=== PATIENT | female | born 1970 | race Caucasian/White ===

== ENCOUNTER 2024-08-11 13:40 | Outpatient (AMB) | payer MEDICARE, MEDICAID, SELFPAY ==
--- NOTE | 2024-08-11 13:44 | A.OFFVIS_ITS ---
VS Expanded 08/11/24 13:45 08/11/24 14:35 Height 4 ft 11 in 4 ft 11 in Weight 110 lb 3.698 oz 110 lb BMI 22.3 22.2 Intake Visit Reasons: Eating Habits Allergies Opioids - Morphine Analogues [OPIOIDS - MORPHINE ANALOGUES] Allergy (Severe, Unverified 06/22/20 16:23) NAUSEA, HIVES, STOPS BREATHING Nutrition Presentation Details: Pt presents for MNT for better eating habits Pt presents with her mom during this appointment. Mom reports Pt has lost about 60 lbs in 2 yrs since teeth were removed. Pt reports having lack of appetite and dealing with IBS and diverticulitis Pt reports she is concerned about gaining weight Pt lives with boyfriend , boyfriend cooks most of the meals Recently switched to lactaid milk and tolerates it well, has lactose intolerance 11 am milk (lactose free) and pills 12: milk lactose free and pills dinner: sloppy balaji on burger roll, water or milk other days Setswana meals (made by boyfriend: rice/beef/vegetables Pt reports smoking weed - several times/day no etoh BS Monitoring Most Recent Diabetes Results: No Data to Display ALM-Dryqsxz-Jd.Jeor Equation Height: 4 ft 11 in Weight: 110 lb Resting Metabolic Rate: 1013.32 Calculated Activity Level: Sedentary Calories Needed to Maintain Weight: 1215.98 Diagnosis Nutrition problem #1: not ready diet/lifestyle As related to (etiology) #1: unwilling to learn/apply As evidenced by (sign/symptom) #1: other (as per Pt 's statements ) Assessment & Plan Assessment & Plan (1) Poor eating habits: Code(s): E63.9 - Nutritional deficiency, unspecified Category: Medical Plan: Encourage variety of foods in the diet , including combination of complex carbohydrates and lean protein foods est kcal needs [id number] jose j meal est fluid 1500 ml/d est prot: 50 g/d Patient Instructions: Try having potatoes (microwaved ok ) with beef, alternating between bread and potato Have cereal with milk in the morning to take your medications (try multrigrain cheerios mix with cocoa puffs) Coding Level of Care Code Nutr Indiv Intake (90315) Diagnoses Poor eating habits E63.9 Time Spent (min) 30
[2024-08-11 13:45] VITALS: BMI 22.3
[2024-08-11 14:35] VITALS: BMI 22.2
== END 2024-08-11 15:20 | disposition home or self-care (01) ==
LOC: HO.ENCR 13:40
PROVIDERS: PCP Internal Medicine Endocrinology, Diabetes & Metabolism; Visit Provider Dietitian, Registered
DX: E63.9 Nutritional deficiency, unspecified (principal)

== ENCOUNTER → 2024-08-11 13:40 | Outpatient (BNVA) | payer MEDICARE, MEDICAID, SELFPAY | PROVIDERS: PCP Internal Medicine Endocrinology, Diabetes & Metabolism; Visit Provider Dietitian, Registered | DX: E63.9 Nutritional deficiency, unspecified (principal); K58.9 Irritable bowel syndrome, unspecified; Z71.3 Dietary counseling and surveillance | CPT/HCPCS: 97802 ==

== ENCOUNTER 2025-01-26 10:54 | Inpatient (IN) | payer MEDICARE, MEDICAID, SELFPAY ==
[2025-01-26 11:00] VITALS: BMI 21.9
--- NOTE | 2025-01-26 11:09 | PC.NURSE ---
Assumed care of patient at approximately 1055. Patient arrived to ED via EMS. Patient reports self harming behavior, hair pulling, anxiety, depression. Patient arrived tearful. Patient reports not wanting to stay at the facility she is at anymore. Patient has suicidal thoughts due to feeling like she is running out of options . No plan or intent. A&Ox4.
[2025-01-26 11:25] LABS: Appearance Urine Cloudy; Color Urine Yellow; Glucose Urine UA Negative (Negative); Leukocyte Esterase Urine Moderate (2+) (Negative); Nitrite Urine Negative (Negative); PH 6.5 (5.0-9.0); Specific Gravity - Urine 1.015 (1.005-1.025); UMIC TRIGGER UACC YES; Urine Blood Negative (Negative); Urine Ketones Negative (Negative); Urine Protein Negative (Neg-Trace)
[2025-01-26 11:34] LABS: Amphetamine Screen Urine Not Detected (Not Detect); Bacteria Urine 1+ (None Seen); Barbiturates, Urine Not Detected (Not Detect); Benzodiazepines Screen Urine Not Detected (Not Detect); Buprenorphine Scr Not Detected (Not Detect); Cannabinoid Screen Urine POSITIVE (Not Detect); Cocaine Screen Urine Not Detected (Not Detect); Fentanyl, urine Not Detected (Not Detect); Hyaline Casts Urine 0-2 /LPF (0-2); Methadone Screen, Urine Not Detected (Not Detect); Opiate Screen Urine POSITIVE (Not Detect); Oxycodone Screen Urine Not Detected (Not Detect); Phencyclidine Screen Urine Not Detected (Not Detect); RBC Urine 0-2 /HPF (0-2); Squamous Epithelial Cell Urine >20 /HPF (0-2); UACC Culture Trigger YES
[2025-01-26 11:35] LABS: MANUAL DIFF FLAG NO
[2025-01-26 11:37] LABS: Basophils Percent Auto 0.3 % (0-2); Eosinophils Absolute Auto 0.1 X10*3/uL (0.0-0.4); Eosinophils Percent Auto 0.8 % (0-4); Hematocrit 35.6 % (37.0-47.0); Hemoglobin 12.2 g/dl (12.0-16.0); Imm Gran Abs Auto 0.04 X10*3/uL (0.00-0.03); Imm Gran Pct Auto 0.5 % (0.0-0.4); Lymphocytes Absolute Auto 1.5 X10*3/uL (1.2-4.9); Lymphocytes Percent Auto 20.2 % (20-40); Mean Corpuscular HGB Conc 34.3 g/dl (31.0-35.0); Mean Corpuscular Hemoglobin 34.3 pg (27.0-33.0); Mean Platelet Volume 10.7 fL (9.4-12.3); Monocytes Absolute Auto 0.5 X10*3/uL (0.1-1.2); Monocytes Percent Auto 7.1 % (2-11); Neutrophils Absolute Auto 5.3 x10*3/uL (2.0-8.3); Neutrophils Percent Auto 71.1 % (45-73); Platelet Count 139 X10*3/uL (160-400); Red Blood Count 3.56 X10*6/uL (4.20-5.50); Red Cell Distribution Width 12.6 % (11.0-16.0); White Blood Count 7.5 X10*3/uL (4.8-10.8)
[2025-01-26 11:53] LABS: Alanine Aminotransferase 45 U/L (0-31); Albumin Level 3.8 g/dL (3.5-5.0); Alkaline Phosphatase 93 U/L (39-117); Anion Gap 9 (12-20); Aspartate Amino Transferase 38 U/L (5-31); Bilirubin Total 0.3 mg/dL (0.0-1.0); Blood Urea Nitrogen 29 mg/dL (9-16); Calcium 9.7 mg/dL (8.4-10.2); Carbon Dioxide 29 mmol/L (22-29); Chloride 106 mmol/L (96-108); Creatinine Clr Calc Pharmacy 60.5; Estimated Glomerular Filt Rate > 60; Ethanol < 10 mg/dL; Glucose Random 102 mg/dL (60-115); Potassium 4.3 mmol/L (3.3-5.1); Sodium 140 mmol/L (135-145); Total Protein 6.3 g/dL (6.5-8.0)
--- NOTE | 2025-01-26 12:48 | PC.NURSE ---
Pt has ostomy that was placed on 01/14/25. Patient is reporting increased discomfort surrounding the ostomy, tender to the touch. MD Nunez aware. Plan to change ostomy later in the day when supplies are available
--- NOTE | 2025-01-26 12:50 | MHC.CARE ---
Pt meets the criteria for IPLOC. Section 12a in chart. Provider in agreement.
[2025-01-26 13:22] LABS: HCG Quantitative < 2 mIU/mL
--- NOTE | 2025-01-26 13:58 | ED_ITS ---
HPI - Psych General Chief Complaint: Psychiatric Symptoms Stated Complaint: SEC 12,DEPRESSED,SELF HARM/PULLS HAIR & HITS SELF Time Seen by Provider: 01/26/25 11:12 Source: patient, family and EMS Mode of arrival: EMS History of Present Illness ED Provider: Dr. Kristin Nunez HPI Narrative: Patient comes to the emergency room via ambulance. Patient presents to the ED accompanied by her mother. According to the patient's mother, the patient has been having self-harming behaviors, her pulling, punching herself, running into [place] on purpose. Seems that the patient has been having worsening anxiety and depression. According to the patient's mother, patient does have developmental delay. According to the patient's mother, on 01/14/2025, patient had a colostomy surgery done, temporary. According to the patient's mother patient had multiple episodes of prolapsed rectum. Patient states that she has been recovering okay from surgery but it feels a bit irritated, denies any blood in the stool. The patient's mother reports that when the patient was seen at [facility] for the surgery, she was already acting erratic. Patient was discharged to senior care facility/rehab and her behavior worsening. Patient admits that she feels emotionally unstable, admits to SI. Related Data Home Medications ?Medication ?Instructions ?Recorded ?Confirmed albuterol sulfate 90 mcg/actuation 2 puff inhalation Q4H PRN Wheezing 01/26/25 01/26/25 aerosol inhaler amlodipine 5 mg tablet 7.5 mg PO DAILY 01/26/25 01/26/25 buspirone 15 mg tablet 15 mg PO TID 01/26/25 01/26/25 dicyclomine 10 mg capsule 10 mg PO BIDWM 01/26/25 01/26/25 ferrous sulfate 325 mg (65 mg 325 mg PO DAILY 01/26/25 01/26/25 iron) tablet (FeroSul) omeprazole 40 mg capsule,delayed 40 mg PO BID 01/26/25 01/26/25 release risperidone 0.5 mg tablet 0.5 mg PO DAILY 01/26/25 01/26/25 sertraline 100 mg tablet 150 mg PO DAILY 01/26/25 01/26/25 trazodone 100 mg tablet 100 mg PO BEDTIME 01/26/25 01/26/25 trazodone 50 mg tablet 25 mg PO BEDTIME 01/26/25 01/26/25 Allergies Allergy/AdvReac Type Severity Reaction Status Date / Time Opioids - Morphine Analogues Allergy Severe NAUSEA, Unverified 01/26/25 11:05 [OPIOIDS - MORPHINE HIVES, ANALOGUES] STOPS BREATHING Review of Systems 2 Review of Systems: Appearance: Alert. Oriented 3 No acute distress. Eyes: Pupils equal, round and reactive to light. ENT: Pharynx normal. Neck: Normal inspection. Neck supple. No lymph nodes noted. No crepitus CVS: Normal heart rate and rhythm. Pulses normal. Normal S1 and S2 Respiratory: No respiratory distress. Breath sounds normal. No Wheezing. No rales Abdomen: Soft and nontender. No rigidity. No distention. Skin: Skin warm and dry. Normal skin color. Normal skin turgor. Extremities: No lower extremity edema. No Lacerations. No Rash Neuro: Oriented X 3. No motor deficit. No sensory deficit. Moving all extremities. No slurred speech. CN 2 through 12 grossly intact Psych: calm, cooperative, normal affect [facility] Social History Social History Smoked in Last 30 Days: No Use of substances other than those prescribed or required for medical reasons: No Advance Directives: Yes Advance Directives Information Provided: Yes Advance Directives on File: No Do you have a plan to hurt others: No Plan Physical Exam 2 Vital Signs: Vital Signs: Last Vital Signs Temp 97.8 F 01/27/25 06:32 Pulse 89 01/27/25 06:32 Resp 17 01/27/25 06:32 BP 141/79 H 01/27/25 06:32 Pulse Ox 98 01/27/25 06:32 O2 Del Method Room Air 01/27/25 06:32 BMI result Body Mass Index 21.9 Const: Other: Appearance: Alert. Oriented X3. No acute distress. Eyes: Pupils equal, round and reactive to light. ENT: Pharynx normal. Neck: Normal inspection. Neck supple. No lymph nodes noted. No crepitus CVS: Normal heart rate and rhythm. Pulses normal. Normal S1 and S2 Respiratory: No respiratory distress. Breath sounds normal. No Wheezing. No rales Abdomen: Soft and nontender. No rigidity. No distention. The colostomy bag is in place, skin looks healthy, no signs of infection. Skin: Skin warm and dry. Normal skin color. Normal skin turgor. Extremities: No lower extremity edema. No Lacerations. No Rash Neuro: Oriented X 3. No motor deficit. No sensory deficit. Moving all extremities. No slurred speech. CN 2 through 12 grossly intact Psych: calm, cooperative, seems anxious Course Course Course Narrative: All of patient's labs pending. Colostomy bag surgical site is clean I was informed by the care team that the patient does not know how to take care of her colostomy bag. According to the patient's mother, when patient was discharged from the hospital in [facility], they tried taking the patient, but patient has no intention of learning how to take care of her own colostomy bag. Reevaluation(s) Reevaluation #1: Time: 13:14 Date: 01/27/25 Provider: Markie Gallo MD Physician observation ended at 12:50. Patient to be admitted as inpatient to psychiatry. No acute events prior to admission. Time: 13:15 Medications Administered Generic Name Dose Route Start Last Admin Trade Name Freq PRN Reason Stop Dose Admin Amlodipine Besylate 7.5 mg 01/27/25 09:00 01/27/25 08:51 Amlodipine Besylate 2.5 Mg Tablet PO 7.5 mg DAILY JOSE MARIA Administration Protocol Buspirone HCl 15 mg 01/26/25 21:00 01/27/25 08:39 Buspirone Hcl 5 Mg Tablet PO 15 mg TID JOSE MARIA Administration Dicyclomine HCl 10 mg 01/26/25 19:15 01/27/25 08:40 Dicyclomine Hcl 10 Mg Capsule PO 10 mg BIDWM JOSE MARIA Administration Ferrous Sulfate 324 mg 01/27/25 09:00 01/27/25 08:40 Ferrous Sulfate 324 Mg Tablet. PO 324 mg DAILY JOSE MARIA Administration Omeprazole 40 mg 01/27/25 06:30 01/27/25 08:40 Omeprazole 40 Mg Capsule. PO 40 mg BID@0630,1630 JOSE MARIA Administration Risperidone 0.5 mg 01/27/25 09:00 01/27/25 08:40 Risperidone 0.5 Mg Tablet PO 0.5 mg DAILY JOSE MARIA Administration Sertraline HCl 150 mg 01/26/25 18:45 01/27/25 08:40 Sertraline Hcl 50 Mg Tablet PO 150 mg DAILY JOSE MARIA Administration Trazodone HCl 25 mg 01/26/25 21:00 01/26/25 19:35 Trazodone Hcl 25 Mg Halftab PO 25 mg BEDTIME JOSE MARIA Administration Trazodone HCl 100 mg 01/26/25 21:00 01/26/25 19:35 Trazodone Hcl 100 Mg Tablet PO 100 mg BEDTIME JOSE MARIA Administration Discontinued Medications Generic Name Dose Route Start Last Admin Trade Name Jody PRN Reason Stop Dose Admin Lorazepam 1 mg 01/26/25 16:05 01/26/25 16:08 Lorazepam 1 Mg Tablet PO 01/26/25 16:06 1 mg ONCE ONE Administration Lorazepam 2 mg 01/26/25 18:06 01/26/25 18:10 Lorazepam 1 Mg Tablet PO 01/26/25 18:07 2 mg ONCE ONE Administration Lorazepam 2 mg 01/27/25 10:45 01/27/25 11:10 Lorazepam 1 Mg Tablet PO 01/27/25 10:46 2 mg ONCE ONE Administration Medical Decision Making Medical Decision Making [facility] Narrative: My interpretation of labs: No significant abnormality in patient's hematology or chemistry. LFTs are slightly bumped, hCG negative Patient is on a Section 12 Care team was consulted, patient will need inpatient level of care. Given patient's multiple conditions, care team recommends to keep the patient here in this hospital rather than doing a bed search with other hospitalist. Patient will likely need to go to the geriatric psychiatric unit since patient needs specialized care for her ostomy bag. Patient 's mother agrees with plan. Differential Diagnosis Differential Diagnoses: The differential diagnosis associated with the presentation includes Admission/Observation Consideration of admission/observation: Escalation of care including admission/observation considered (Patient will likely need inpatient level of care.) Lab Data [facility] Lab Attestation statement: I reviewed the patient's lab results. 01/26/25 11:29 01/26/25 11:29 Labs: Lab Results 01/26/25 01/26/25 Range/Units 11:15 11:29 WBC 7.5 (4.8-10.8) X10*3/uL RBC 3.56 L (4.20-5.50) X10*6/uL Hgb 12.2 (12.0-16.0) g/dl Hct 35.6 L (37.0-47.0) % MCV 100.0 H (80.0-98.0) fL MCH 34.3 H (27.0-33.0) pg MCHC 34.3 (31.0-35.0) g/dl RDW 12.6 (11.0-16.0) % Plt Count 139 L (160-400) X10*3/uL MPV 10.7 (9.4-12.3) fL Immature Gran % (Auto) 0.5 H (0.0-0.4) % Neut % (Auto) 71.1 (45-73) % Lymph % (Auto) 20.2 (20-40) % [place] % (Auto) 7.1 (2-11) % Eos % (Auto) 0.8 (0-4) % Baso % (Auto) 0.3 (0-2) % Lymph # (Auto) 1.5 (1.2-4.9) X10*3/uL [place] # (Auto) 0.5 (0.1-1.2) X10*3/uL Eos # (Auto) 0.1 (0.0-0.4) X10*3/uL Baso # (Auto) 0.0 (0.0-0.2) X10*3/uL Abs Immat Gran (auto) 0.04 H (0.00-0.03) X10*3/uL Absolute Neuts (auto) 5.3 (2.0-8.3) x10*3/uL Absolute Nucleated RBC 0.000 (0.0-0.012) X10*3/uL Nucleated RBC % (auto) 0.0 (0.0-0.2) /100WBC Sodium 140 (135-145) mmol/L Potassium 4.3 (3.3-5.1) mmol/L Chloride 106 (96-108) mmol/L Carbon Dioxide 29 (22-29) mmol/L Anion Gap 9 L (12-20) BUN 29 H (9-16) mg/dL Creatinine 0.85 (0.5-1.4) mg/dL Estim Creat Clear Calc 60.5 Estimated GFR > 60 Random Glucose 102 (60-115) mg/dL Calcium 9.7 (8.4-10.2) mg/dL Total Bilirubin 0.3 (0.0-1.0) mg/dL AST 38 H (5-31) U/L ALT 45 H (0-31) U/L Alkaline Phosphatase 93 (39-117) U/L Total Protein 6.3 L (6.5-8.0) g/dL Albumin 3.8 (3.5-5.0) g/dL Beta HCG, Quant < 2 mIU/mL Urine Color Yellow Urine Appearance Cloudy Urine pH 6.5 (5.0-9.0) Ur Specific [place] 1.015 (1.005-1.025) Urine Protein Negative (Neg-Trace) mg/dL Urine Glucose (UA) Negative (Negative) mg/dL Urine Ketones Negative (Negative) mg/dL Urine Blood Negative (Negative) Urine Nitrite Negative (Negative) Ur Leukocyte Esterase Moderate (2+) H (Negative) Urine RBC 0-2 (0-2) /HPF Urine WBC 11-20 H (0-5) /HPF Ur Squamous Epith Cells >20 (0-2) /HPF Urine Bacteria 1+ (None Seen) Hyaline Casts 0-2 (0-2) /LPF Urine Opiates Screen POSITIVE H (Not Detect) Ur Buprenorphine Scrn Not Detected (Not Detect) ng/mL Ur Oxycodone Screen Not Detected (Not Detect) ng/mL Urine Methadone Screen Not Detected (Not Detect) ng/mL Urine Fentanyl Screen Not Detected (Not Detect) Ur Barbiturates Screen Not Detected (Not Detect) Ur Phencyclidine Scrn Not Detected (Not Detect) Ur Amphetamines Screen Not Detected (Not Detect) U Benzodiazepines Scrn Not Detected (Not Detect) Urine Cocaine Screen Not Detected (Not Detect) U Marijuana (THC) Screen POSITIVE H (Not Detect) Ethyl Alcohol < 10 mg/dL Critical Care Time Critical Care Time Critical Care Time: Yes Total Critical Care Time: 35 Attestation: I have personally provided critical care time. Time includes review of lab data, radiology results, discussion with consultants, and monitoring for potential decompensation. Intervention performed as documented. Discharge Plan Discharge Clinical Impression: Anxiety, Paranoid, Self-destructive behavior Patient Disposition: Admitted As Inpatient Interventions: [place]-Suicide Risk Severity Scale Last Done: 01/26/25 11:05 Admission Worksheet (ED) Last Done: 01/27/25 13:04 Discharge Date/Time: 01/27/25 13:04
--- OUTSIDE RECORDS SUMMARY | 2025-01-26 14:53 | XMS_ITS | Clinical Summary ---
Author Organization [address] Address [address] [place] [phone] Phone Care Team Providers Care Customer Assistance Associate Name Role Phone Marc Longo MD Primary Care Provider [phone] Allergies Active Allergy Reactions Criticality Noted Date Comments Aspirin 04/20/2007 Rash; NOT ALLERGIC PER PATIENT Azithromycin Swelling 09/18/2015 Carisoprodol 07/21/2007 Codeine 11/17/2007 Gi upset Diazepam 04/20/2007 Valium gi upset,vom Gabapentin 07/29/2014 nausea Horse Dander 04/20/2007 Horse Serum animal Morphine Sulfate 04/20/2007 gi upset,vom Opium Tincture 02/02/2018 Oxycodone-Acetaminophen 04/20/2007 gi upset [id number] 08/01/2017 Moviprep [[id number] [id number]-[id number]] Prednisone 02/29/2016 nausea Propoxyphene Other 12/10/2007 Cannot take d/t to depression meds Propoxyphene N-Acetaminophen 06/25/2010 Medications busPIRone (BUSPAR) 15 mg tablet Take 1 Tab by mouth 3 times daily. 11/15/19 21 Active dicyclomine (BENTYL) 10 mg capsule Twice a day with meals and at bed time 07/29/20 Active folic acid (FOLVITE) 1 mg tablet Take 1 Tablet by mouth daily. 07/29/20 24 Active risperiDONE (RisperDAL) 0.5 mg tablet Take 1 Tab by mouth at bedtime. 03/10/20 Active sertraline (ZOLOFT) 100 mg tablet Take 1.5 tablets (150 mg total) by mouth 1 (one) time each day. 04/06/20 Active traZODone (DESYREL) 100 mg tablet Take 125 mg by mouth at bedtime. 03/26/20 22 Active vitamin B complex (B COMPLEX-VITAMI N B12 ORAL) Take by mouth 1 (one) time each day. Active albuterol HFA (PROAIR HFA ; PROVENTIL HFA ; VENTOLIN HFA) 90 mcg/actuation inhaler Inhale 2 puffs by mouth every 4 (four) hours if needed (cough, wheezing, shortness of breath). 8.5 g 12/07/19 25 Active omeprazole (PriLOSEC) [address] capsule Take 1 capsule (40 mg total) by mouth 2 (two) times a day. Do not crush or chew. 90 capsule 1 12/07/19 25 Active ferrous sulfate 325 mg (65 mg elemental iron) tablet Take 1 tablet (325 mg total) by mouth 1 (one) time each day. 90 tablet 1 12/07/19 25 Active atorvastatin (LIPITOR) 10 mg tablet Take 1 tablet (10 mg total) by mouth at bedtime. 30 tablet 01/04/20 25 Active metoprolol succinate (TOPROL-XL) 25 mg 24 hr tablet Take 1 tablet (25 mg total) by mouth 1 (one) time each day. Do not crush or chew. 30 tablet 01/04/20 25 Active nicotine (NICODERM CQ) 14 mg/[address] 1 patch on the skin 1 (one) time each day at the same time for 14 doses. 01/20/20 25 02/02/ 025 Active polyethylene glycol (MIRALAX) 17 gram packet Take 17 g by mouth 1 (one) time each day for 10 days. 01/21/20 25 025 Active docusate sodium (COLACE) 100 mg capsule Take 2 capsules (200 mg total) by mouth 2 (two) times a day for 10 days. 0 01/20/20 25 Active amLODIPine (NORVASC) 5 mg tablet Take 1 tablet (5 mg total) by mouth 1 (one) time each day. 01/20/20 Active amLODIPine (NORVASC) 5 mg tablet Take 1.5 Tablets by mouth daily. 07/29/20 025 Discontinued(Re order) atorvastatin (LIPITOR) 10 mg tablet Take 1 Tablet by mouth at bedtime. 07/29/20 025 Discontinued(Re order) metoprolol succinate (TOPROL-XL) 25 mg 24 hr tablet Take 1 Tablet by mouth daily. 07/29/20 025 Discontinued(Re order) doxycycline hyclate (VIBRA-TABS) 100 mg tablet Take 1 tablet (100 mg total) by mouth 2 (two) times a day. 10/14/19 025 Discontinued(Ex pired) ibuprofen (ADVIL,MOTRIN) 600 mg tablet Take 1 tablet (600 mg total) by mouth 3 (three) times a day if needed (pain). 30 tablet 11/11/19 025 Discontinued(En tered in Error) amLODIPine (NORVASC) 5 mg tablet Take 1.5 tablets (7.5 mg total) by mouth 1 (one) time each day. 45 tablet 01/04/20 025 Discontinued HYDROmorphone (DILAUDID) 2 mg tabletIndicati ons:Self-injur ious behavior,Recta l prolapse,Throm bocytopenia ([facility] V24) Take 1 tablet (2 mg total) by mouth every 4 (four) hours if needed for severe pain for up to 3 days. Max Daily Amount: 12 mg 10 tablet 01/20/20 Active Problems Problem Noted Date Diagnosed Date Constipation, chronic 04/16/2024 Chronic low back pain 02/07/2022 CKD (chronic kidney disease) stage 3, GFR 30-59 ml/min (CMS/HCC V24, CMS/HCC V28) 11/15/2020 Marijuana abuse 11/14/2020 Thrombocytopenia ([facility]24) 10/25/2019 Insomnia 07/16/2017 Resolved Problems Problem Noted Date Diagnosed Date Resolved Date Diarrhea 01/14/2025 01/19/2025 Rectal prolapse 04/16/2024 01/19/2025 Encounters Date Type Department Care Team Description 01/23/2025 Lab Requisition [facility] [address] [place] [address] Courtney Roger MD Anemia, unspecified; Other disorders of electrolyte and fluid balance, not elsewhere classified 01/20/2025 Lab Requisition [facility] [address] [place] [address] Courtney Roger MD Anemia, unspecified; Other disorders of electrolyte and fluid balance, not elsewhere classified 01/19/2025 Telephone Adult Medicine [address] [phone] Marc Longo MD Advice Only 01/14/2025 1:20 PM EDT - 01/14/2025 3:50 PM EDT Surgery [address] [phone] Sebastian Sanabria MD LAPAROSCOPIC LOW ANTERIOR RESECTION W/ COLOSTOMY CREATION 01/14/2025 1:14 PM EDT Anesthesia Event [address] [phone] Jovi Hernandez DO Chang, Ling, CRNA 01/12/2025 6:48 AM EDT - 01/19/2025 4:39 PM EDT Hospital Encounter [facility] [address] [place] [phone] Jorge Singh MD Garvin, MD Rodger Sullivan Mark A, MD Cheng, Ting Ho Danny, DO Landry, Jonathan P, MD Flores, Carlos M, MD Santoyo-Pacheco, Omar D, MD Japaridze, Anna, MD Colitis (Primary Dx); Periorbital hematoma of left eye; Self-injurious behavior; Rectal prolapse; Diarrhea; Thrombocytopenia ([facility] V24) Discharge Disposition: [facility] Facility 12/14/2024 Telephone Adult Medicine [address] [phone] Amy Gamez, RN Faxed Order (Maria Alejandra Toure [facility] order# [id number]) 11/11/2024 10:00 AM EST - 11/11/2024 11:59 PM EST Hospital Encounter [address] [phone] Chronic bilateral low back pain with bilateral sciatica Discharge Disposition: Home or Self Care 11/11/2024 9:30 AM EST Office Visit Adult [address] [phone] Irma Pena PA Chronic bilateral low back pain with bilateral sciatica (Primary Dx); Paresthesias; Urinary frequency; Elevated glucose level; Screening for diabetes mellitus (DM); Acute bacterial conjunctivitis of left eye; Vitamin D deficiency 11/10/2024 Telephone Adult Medicine [address] [phone] Marc Longo MD Request For Order(s) (Maria Alejandra Toure order # [id number] received. Placed in provider's bin. Please sign, date and fax back to [phone].) 11/08/2024 Telephone Adult Medicine [address] [phone] Marc Longo MD Foot Swelling; Nasal Congestion; Cough 11/05/2024 Telephone Adult [address] [phone] Mariela Malik LPN Fitting for DME (Faxed form from [employer]) from Last 3 Months Immunizations Name Administration Dates Next Due Td Tetanus diptheria (Tdvax) 7yo and older 11/19 Tdap Tetanus diptheria acell ular pertussis (Boostrix; Adacel) 7yo and older 06/07/2008 Surgical History Surgery Date Site/Laterality Comments BACK SURGERY 1996 PROCEDURE: HISTORICAL BACK SURGERY; COMMENT: multiple back procedures ESOPHAGOGASTRODUODENOSCOPY 08/01/2008 PROCEDURE: ID EGD TRANSORAL BIOPSY SINGLE/MULTIPLE; COMMENT: duodenal bx: wnl COLONOSCOPY W/ BIOPSIES 08/01/2008 PROCEDURE: ID COLONOSCOPY W/BIOPSY SINGLE/MULTIPLE; COMMENT: colonic bx: wnl TUBAL LIGATION 2002 PROCEDURE: HISTORICAL TUBAL LIGATION ENDOMETRIAL ABLATION 05/25/2010 PROCEDURE: ID ENDOMETRIAL ABLTJ THERMAL W/O HYSTEROSCOPIC GUID; COMMENT: Novasure TONSILLECTOMY PROCEDURE: HISTORICAL TONSILLECTOMY MULTIPLE TOOTH EXTRACTIONS PROCEDURE: HISTORICAL DENTAL EXTRACTION CHOLECYSTECTOMY 05/16/2017 PROCEDURE: HISTORICAL CHOLECYSTECTOMY; COMMENT: Dr. 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 05/07/2007 DX:Degenerative joint diseas e (DJD) of lumbar spine Depression 04/20/2007 DX:Depression; C OMMENT: IP 04/2017 GERD (gastroesophageal reflu x disease) 10/08/2010 DX:GERD (gastroesophageal re flux disease) History of diverticulitis of colon 09/23/2017 DX:History of diverticulitis of colon Hyperlipidemia 09/23/2017 DX:Hyperlipidemi a Hypertension 04/20/2007 DX:Hypertension Insomnia 07/16/2017 DX:Insomnia Internal and external prolap sed hemorrhoids 02/04/2017 DX:Internal and external pro lapsed hemorrhoids Irritable bowel syndrome (IBS) 02/08/2015 D X:Irritable bowel syndrome (IBS) TREVOR (obstructive sleep apnea) 01/26/2013 DX :TREVOR (obstructive sleep apnea); COMMENT: CPAP PTSD (post-traumatic stress disorder) 07/16/2017 DX:PTSD (post-traumatic stress disorder) Rheumatic mitral stenosis 05/03/2016 DX:Rhe umatic mitral stenosis Tobacco abuse 01/06/2018 DX:Tobacco abuse Ventral hernia 12/30/2017 DX:Ventral herni a Family History Medical History Relation Name Comments Breast cancer Aunt maternal unilateral Other: Other Father pacemaker; tric uspid & mitral valve replacement Relation Name Status Comments Aunt maternal Alive Father Alive Maternal Grandfather Maternal Grandmother Mother Alive Paternal Grandfather Paternal Grandmother Sister x 2 Alive Social History Tobacco Use Types Packs/Day Years Used Date Smoking Tobacco: Every Day Cigarettes Smokeless Tobacco: Never Tobacco Cessation:Ready to Q uit: Not Asked; Counseling Given: Not Answered Alcohol Use Standard Drinks/Week Comments No 0 (1 standard drink = 0.6 oz pur e alcohol) Interpersonal Safety Answer Date Record ed Physical Abuse 01/14/2025 Verbal Abuse 01/14/2025 Comments No Sex and Gender Information Value Date Recorded Sex Assigned at Female 01/12/2025 8:36 AM EDT Legal Sex Female 1:54 AM EST Gender Identity Female 01/12/2025 8:36 AM EDT Sexual Orientation Straight 01/12/2025 8: 36 AM EDT Obstetrics History Last Filed Vital Signs Vital Sign Reading Time Taken Comments Blood Pressure 145/70 01/19/2025 2:30 PM EDT Pulse 87 01/19/2025 2:30 PM EDT Temperature 36.2 ??C (97.1 ??F) 01/19/2025 2:30 PM ED T Respiratory Rate 18 01/19/2025 2:30 PM EDT Oxygen Saturation 94% 01/19/2025 2:30 PM EDT Inhaled Oxygen Concentration - - Weight 53.2 kg (117 lb 3.2 oz) 01/14/2025 11:00 AM EDT Height 149.9 cm (4' 11 ) 01/14/2025 11:00 AM EDT Body Mass Index 23.67 01/14/2025 11:00 AM EDT Plan of Treatment Upcoming Encounters Date Type Department Care Team (Late st Contact Info) Description 02/17/2025 9:45 AM EDT Clinical Support General Surgery [facility] [address] [phone] 02/25/2025 8:45 AM EDT Office Visit [address] [phone] Sebastian Sanabria MD [address] [address] 06/21/2025 1:30 PM EDT Office Visit [facility] H[facility]ology Oncology [address] [place] [address] Heide Covarrubias MD [address] [place] [address] Health Maintenance Due Date Last Done Comments COVID-19 Vaccine (#1) 1976 Hepatitis A Vaccines (1 of 2 - Risk 2-dose series) 1990 Hepatitis B Vaccines (1 of 3 - 19+ 3-dose series) 1990 Pneumococcal Vaccine: 50+ Years (1 of 2 - PCV) 1990 Pneumococcal Vaccine: Pediatrics (0 to 5 Years) and At-Risk Patients (6 to 64 Years) (1 of 2 - PCV) 1990 Cervical Cancer Screening: Pap Smear 12/28/2018 12/29/2015, 12/29/2015 Zoster Vaccines (1 of 2) 2021 Depression Screening 09/14/2022 Medicare Annual Wellness Visit 09/14/2022 Social Influencers of Health Screening 09/14/2022 Influenza Vaccine (Season Ended) 2025 Breast Cancer Screening 12/22/2025 12/23/19 24, 09/04/2020, 08/30/2019, Additional history exists Hypertension/CHF/CAD Annual BMP Blood Test 01/24/2026 01/24/2025, 01/20/2025, 01/18/2025, Additional history exists Cholesterol Screening (Lipid Panel) 11/26/2028 11/26/2023 DTaP,Tdap,and Td Vaccines (3 - Td or Tdap) 11/19/2033 11/19/2023, 06/07/2008 Colorectal Cancer Screening: Colonoscopy 04/01/2034 04/01/2024 HIV Screening Completed 06/26/2009 Hepatitis C Screening Completed 01/14/2025 , 01/14/2025, 01/14/2025, Additional history exists HIB Vaccines Aged Out No longer eligi ble based on patient's age to complete this topic HPV Vaccines Aged Out No longer eligi ble based on patient's age to complete this topic IPV Vaccines Aged Out No longer eligi ble based on patient's age to complete this topic MMR Vaccines Aged Out No longer eligi ble based on patient's age to complete this topic Meningococcal ACWY Vaccine Aged Out N o longer eligible based on patient's age to complete this topic Meningococcal B Vaccine Aged Out No l onger eligible based on patient's age to complete this topic RSV Immunization Patients Under 20 months Aged Out No longer eligible based on patient's age to complete this topic Varicella Vaccines Aged Out No longer eligible based on patient's age to complete this topic Procedures Procedure Name Priority Date/Time Associated Diagnosis Comments COMPREHENSIVE METABOLIC PANEL Routine 01/24/2025 9:25 AM EDT Anemia, unspecified Other disorders of electrolyte and fluid balance, not elsewhere classified COMPLETE BLOOD COUNT Routine 01/24/2025 9:25 AM EDT Anemia, unspecified Other disorders of electrolyte and fluid balance, not elsewhere classified COMPREHENSIVE METABOLIC PANEL Routine 01/20/2025 6:13 AM EDT Anemia, unspecified Other disorders of electrolyte and fluid balance, not elsewhere classified COMPLETE BLOOD COUNT Routine 01/20/2025 6:13 AM EDT Anemia, unspecified Other disorders of electrolyte and fluid balance, not elsewhere classified ECG 12-LEAD Routine 01/18/2025 9:38 AM EDT MAGNESIUM Add-On 01/18/2025 6:48 AM EDT CBC WITH AUTO DIFFERENTIAL Routine 01/18/2025 6:48 AM EDT AMMONIA Routine 01/18/2025 6:48 AM EDT HEPATIC FUNCTION PANEL Routine 01/18/2025 6:48 AM EDT CBC AND DIFFERENTIAL Routine 01/18/2025 6:48 AM EDT BASIC METABOLIC PANEL Routine 01/18/2025 6:48 AM EDT HEPATITIS B VIRUS PCR QUANTITATIVE Routine 01/17/2025 8:35 AM EDT SST - GOLD Routine 01/17/2025 8:33 AM EDT EXTRA TUBES Routine 01/17/2025 8:33 AM EDT CBC WITH AUTO DIFFERENTIAL Routine 01/17/2025 6:12 AM EDT PHOSPHORUS Routine 01/17/2025 6:12 AM EDT MAGNESIUM Routine 01/17/2025 6:12 AM EDT BASIC METABOLIC PANEL Routine 01/17/2025 6:12 AM EDT CBC AND DIFFERENTIAL Routine 01/17/2025 6:12 AM EDT CBC WITH AUTO DIFFERENTIAL Routine 01/16/2025 6:37 AM EDT HEPATIC FUNCTION PANEL Routine 01/16/2025 6:37 AM EDT MAGNESIUM Routine 01/16/2025 6:37 AM EDT CBC AND DIFFERENTIAL Routine 01/16/2025 6:37 AM EDT BASIC METABOLIC PANEL Routine 01/16/2025 6:37 AM EDT PHILLIP URINE CULTURE TUBE Routine 01/16/2025 4:42 AM EDT URINALYSIS WITH REFLEX MICROSCOPIC AND CULTURE Routine 01/16/2025 4:42 AM EDT URINALYSIS WITH REFLEX MICROSCOPIC AND CULTURE Routine 01/16/2025 4:42 AM EDT ECG 12-LEAD STAT 01/15/2025 5:29 PM EDT US ABDOMEN LIMITED Routine 01/15/2025 7: 28 AM EDT CBC WITH AUTO DIFFERENTIAL Routine 01/15/2025 6:27 AM EDT PHOSPHORUS Routine 01/15/2025 6:27 AM EDT HEPATIC FUNCTION PANEL Routine 01/15/2025 6:27 AM EDT BASIC METABOLIC PANEL Routine 01/15/2025 6:27 AM EDT CBC AND DIFFERENTIAL Routine 01/15/2025 6:27 AM EDT MAGNESIUM Routine 01/15/2025 6:27 AM EDT OXYGEN THERAPY, ADULT Routine 01/14/2025 4:11 PM EDT TISSUE EXAM Routine 01/14/2025 3:33 PM EDT Rectal prolapse TH AN ENDOTRACHEAL(NO CHARGE) Routine 01/14/2025 1:38 PM EDT COLECTOMY LEFT LAPAROSCOPIC 01/14/2025 1:14 PM EDT Rectal prolapse MONONUCLEOSIS SCREEN Add-On 01/14/2025 1:00 PM EDT MAGEN IFA WITH TITER AND PATTERN Add-On 01/14/2025 1:00 PM EDT SMOOTH MUSCLE ANTIBODY IGG Routine 01/14/2025 12:58 PM EDT HERPES SIMPLEX VIRUS 1 AND 2 PCR, QUALITATIVE Routine 01/14/2025 12:58 PM EDT HEPATITIS C VIRUS QUANTITATIVE PCR STAT 01/14/2025 11:07 AM EDT HEPATITIS A ANTIBODY, TOTAL STAT 01/14/2025 11:07 AM EDT ACETAMINOPHEN LEVEL Timed 01/14/2025 1 1:07 AM EDT PROTHROMBIN TIME WITH INR Routine 01/14/2025 10:08 AM EDT HEPATITIS C ANTIBODY Add-On 01/14/2025 10:07 AM EDT HEPATITIS B SURFACE ANTIGEN WITH CONFIRMATION Add-On 01/14/2025 10:07 AM EDT HEPATITIS B SURFACE ANTIBODY Add-On 01/14/2025 10:07 AM EDT HEPATITIS B CORE ANTIBODY IGM Add-On 01/14/2025 10:07 AM EDT HEPATITIS A ANTIBODY IGM Add-On 01/14/2025 10:07 AM EDT LAVENDER - EDTA Routine 01/14/2025 10:07 AM EDT SST - GOLD Routine 01/14/2025 10:07 AM EDT EXTRA TUBES Routine 01/14/2025 10:07 AM EDT ECG 12-LEAD STAT 01/14/2025 9:13 AM EDT HEPATITIS PANEL, ACUTE WITH REFLEX TO CONFIRMATION Add-On 01/14/2025 8:38 AM EDT TYPE AND SCREEN STAT 01/14/2025 8:38 AM EDT CBC WITH AUTO DIFFERENTIAL STAT 01/14/2025 8:38 AM EDT C-REACTIVE PROTEIN STAT 01/14/2025 8: 38 AM EDT MAGNESIUM STAT 01/14/2025 8:38 AM EDT COMPREHENSIVE METABOLIC PANEL STAT 01/14/2025 8:38 AM EDT CBC AND DIFFERENTIAL STAT 01/14/2025 8:[address] HEAD WO CONTRAST STAT 01/14/2025 5 [address] MAXILLOFACIAL WO CONTRAST STAT 01/14/2025 5:51 AM EDT PHILLIP URINE CULTURE TUBE STAT 01/12/2025 12:08 PM EDT URINALYSIS WITH REFLEX MICROSCOPIC AND CULTURE STAT 01/12/2025 12:08 PM EDT URINALYSIS WITH REFLEX MICROSCOPIC AND CULTURE STAT 01/12/2025 12:08 PM EDT DRUG ABUSE SCREEN 8A PANEL, URINE STAT 01/12/2025 12:[address] ABDOMEN PELVIS W CONTRAST STAT 01/12/2025 10:15 AM EDT SALICYLATE LEVEL STAT Add-on 01/12/2025 6:44 AM EDT HCG, SERUM, QUALITATIVE STAT Add-on 01/12/2025 6:44 AM EDT ACETAMINOPHEN LEVEL STAT Add-on 01/12/2025 6 :44 AM EDT CBC WITH AUTO DIFFERENTIAL STAT 01/12/2025 6:44 AM EDT COMPREHENSIVE METABOLIC PANEL STAT 01/12/2025 6:44 AM EDT CBC AND DIFFERENTIAL STAT 01/12/2025 6:44 AM EDT URINALYSIS WITH REFLEX MICROSCOPIC Routine 11/11/2024 10:28 AM EST Urinary frequency URINALYSIS WITH REFLEX MICROSCOPIC Routine 11/11/2024 10:28 AM EST Urinary frequency CULTURE URINE Routine 11/11/2024 10:28 AM EST Urinary frequency MAGNESIUM Routine 11/11/2024 10:25 AM EST Chronic bilateral low back pain with bilateral sciatica VITAMIN D 25 HYDROXY Routine 11/11/2024 10:25 AM EST Chronic bilateral low back pain with bilateral sciatica Vitamin D deficiency COMPREHENSIVE METABOLIC PANEL Routine 11/11/2024 10:25 AM EST Chronic bilateral low back pain with bilateral sciatica VITAMIN B12 Routine 11/11/2024 10:25 AM EST Chronic bilateral low back pain with bilateral sciatica HEMOGLOBIN A1C Routine 11/11/2024 10:25 AM EST Chronic bilateral low back pain with bilateral sciatica Screening for diabetes mellitus (DM) Elevated glucose level XR LUMBAR SPINE 4+ VIEWS Routine 11/11/2024 10:09 AM EST Chronic bilateral low back pain with bilateral sciatica HM COLONOSCOPY Routine 04/01/2024 SCREENING MAMMOGRAPHY BI 2-VIEW BREAST INC CAD Routine 12/23/2023 1:58 PM EDT Encounter for screening mammogram for malignant neoplasm of breast LIPID PANEL Routine 11/26/2023 PAP SMEAR Routine 12/29/2015 HIV SCREENING Routine 06/26/2009 from Last 3 Months or Most Recently Relevant to Health Maintenance Results * (ABNORMAL) Complete blood count (01/24/2025 9:25 AM EDT) Only the most recent of2 resultswithin the time period is included. WBC 8.8 4.8 - 10.8 K/mcL LAB HEMETOLOGY METHOD 01/24/2025 12:[address] [facility] RBC 3.70(L) 3.80 - 4.80 M/mcL LAB HEMETOLOGY METHOD 01/24/2025 12:[address] [facility] Hemoglobin 12.4 11.5 - 16.0 g/dL LAB HEMETOLOGY METHOD 01/24/2025 12:[address] [facility] Hematocrit 37.7 35.0 - 47.0 % LAB HEMETOLOGY METHOD 01/24/2025 12:[address] [facility] MCV 102.7(H) 79.0 - 98.0 FL LAB HEMETOLOGY METHOD 01/24/2025 12:[address] [facility] MCH 33.8(H) 27.0 - 32.0 pcg LAB HEMETOLOGY METHOD 01/24/2025 12:[address] [facility] MCHC 32.9 32.0 - 37.0 g/dL LAB HEMETOLOGY METHOD 01/24/2025 12:[address] [facility] RDW 12.7 11.0 - 15.0 % LAB HEMETOLOGY METHOD [facility]/24[facility] Plate[facility] 142 130 - 400 K/mcL LAB HEMETOLOGY METHOD 01/24/2025 12:[address] [facility] MPV 11.8(H) 7.0 - 11.0 FL LAB HEMETOLOGY METHOD 01/24/2025 12:19 [facility] NRBC 0.0 <1.0 % LAB HEMETOLOGY METHOD 01/24/2025 12:19 PM [facility] NRBC Absolute 0.00 <0.10 K/mcL LAB HEMETOLOGY METHOD 01/24/2025 12:[address] [facility] Blood Venous blood specimen / Unknown Venipuncture / Unknown 01/24/2025 9:25 AM EDT 01/24/2025 11:22 AM EDT us Courtney Roger MD LAB BLOOD ORDERABLES Fin al Result [facility] [address] [place] [address], * (ABNORMAL) Comprehensive metabolic panel (01/24/2025 9:25 AM EDT) Only the most recent of5 resultswithin the time period is included. Sodium 140 133 - 145 mmol/L LAB CHEMISTRY METHOD 01/24/2025 1:37 PM [facility] Potassium 4.3 3.5 - 5.5 mmol/L LAB CHEMISTRY METHOD 01/24/2025 1:37 PM [facility] Chloride 104 96 - 110 mmol/L LAB CHEMISTRY METHOD 01/24/2025 1:37 PM [facility] CO2 28 21 - 32 mmol/L LAB CHEMISTRY METHOD 01/24/2025 1:37 PM [facility] Anion Gap 8 3 - 11 LAB CHEMISTRY METHOD 01/24/2025 1:37 PM [facility] Glucose 91 70 - 100 mg/dL LAB CHEMISTRY METHOD 01/24/2025 1:37 PM [facility] BUN 30(H) 5 - 25 mg/dL LAB CHEMISTRY METHOD 01/24/2025 1:37 PM [facility] Creatinine 0.94 0.50 - 1.10 mg/dL LAB CHEMISTRY METHOD 01/24/2025 1:37 PM [facility] eGFR 73 >=60 mL/min/1. 73m2 LAB CHEMISTRY METHOD 01/24/2025 1:37 PM [facility] Comment:Calculation based on the??Chronic Kidney Disease Epidemiology Collaboration (CKD-EPI) equation refit??without adjustment for race. BUN/Creatinine Ratio 31.9 LAB CHEMISTRY METHOD 01/24/2025 1:37 PM [facility] Calcium 9.7 8.5 - 10.5 mg/dL LAB CHEMISTRY METHOD 01/24/2025 1:37 PM [facility] AST (SGOT) 37 10 - 42 unit/L LAB CHEMISTRY METHOD 01/24/2025 1:[address] [facility] ALT (SGPT) 67(H) 10 - 60 unit/L LAB CHEMISTRY METHOD 01/24/2025 1:[address] [facility] Alkaline Phosphatase 108 42 - 121 unit/L LAB CHEMISTRY METHOD 01/24/2025 1:[address] [facility] Total Protein 6.6 6.0 - 8.0 g/dL LAB CHEMISTRY METHOD 01/24/2025 1:[address] [facility] Albumin 3.4 3.2 - 5.0 g/dL LAB CHEMISTRY METHOD 01/24/2025 1:[address] [facility] Total Bilirubin 0.3 0.0 - 1.4 mg/dL LAB CHEMISTRY METHOD 01/24/2025 1:[address] [facility] Blood Venous blood specimen / Unknown Venipuncture / Unknown 01/24/2025 9:25 AM EDT 01/24/2025 11:22 AM EDT us Courtney Roger MD LAB BLOOD ORDERABLES Fin al Result [facility] [address] [place] [address], * ECG 12 lead (01/18/2025 9:38 AM EDT) Only the most recent of3 resultswithin the time period is included. Ventricular Rate ECG 67 BPM GEMUSE Atrial Rate 67 BPM GEMUSE P-R Interval 176 ms GEMUSE QRS Duration 76 ms GEMUSE Q-T Interval 404 ms GEMUSE QTc 426 ms GEMUSE P Wave [place] 25 degrees GEMUSE R [place] 68 degrees GEMUSE T [place] 23 degrees GEMUSE ECG Interpretation Normal sinus rhythm Possible Left atrial enlargement When compared with ECG of 15-JAN-2025 17:29, QT has shortened Confirmed by NARA ENGEL ([id number]) on 01/19/2025 5:20:31 PM GEMUSE 01/18/2025 9:38 AM EDT 01/19/2025 5:20 PM EDT us Tiera Louise MD ECG ORDERABLES Final Result G[facility] * (ABNORMAL) CBC auto differential (01/18/2025 6:48 AM EDT) Only the most recent of6 resultswithin the time period is included. WBC 5.4 4.8 - 10.8 K/mcL LAB HEMETOLOGY METHOD 01/18[facility]2025 7:[facility] RBC 3.40(L) 3.80 - 4.80 M/mcL LAB HEMETOLOGY METHOD 01/18/2025 7:30 AM [facility] Hemoglobin 11.8 11.5 - 16.0 g/dL LAB HEMETOLOGY METHOD 01/18/2025 7:30 AM [facility] Hematocrit 34.4(L) 35.0 - 47.0 % LAB HEMETOLOGY METHOD 01/18/2025 7:30 AM [facility] [facility] MCV 102.1(H) 79.0 - 98.0 FL LAB HEMETOLOGY METHOD 01/18/2025 7:30 AM [facility] MCH 35.0(H) 27.0 - 32.0 pcg LAB HEMETOLOGY METHOD 01/18/2025 7[facility] MCHC 34.3 32.0 - 37.0 g/dL LAB HEMETOLOGY METHOD 01/18/2025 7:30 AM [facility] RDW 12.2 11.0 - 15.0 % LAB HEMETOLOGY METHOD 01/18/2025 7:30 AM [facility] Platelets 66(L) 130 - 400 K/mcL LAB HEMETOLOGY METHOD 01/18/2025 7:30 AM [facility] Comment:previously verified by slide MPV 11.6(H) 7.0 - 11.0 FL LAB HEMETOLOGY METHOD 01/18/2025 7:30 AM [facility] NRBC 0.0 <1.0 % LAB HEMETOLOGY METHOD 01/18/2025 7:30 AM [facility] NRBC Absolute 0.00 <0.10 K/mcL LAB HEMETOLOGY METHOD 01/18/2025 7:30 AM [facility] Neutrophils Relative 66.5 % LAB HEMETOLOGY METHOD 01/18/2025 7:30 AM [facility] Lymphocytes Relative 21.9 % LAB HEMETOLOGY METHOD 01/18/2025 7:30 AM [facility] Monocytes Relative 9.1 % LAB HEMETOLOGY METHOD 01/18/2025 7:30 AM [facility] Eosinophils Relative 1.5 % LAB HEMETOLOGY METHOD 01/18/2025 7:30 AM [facility] Basophils Relative 0.4 % LAB HEMETOLOGY METHOD 01/18/2025 7:30 AM [facility] Immature Granulocytes Relative 0.6 % LAB HEMETOLOGY METHOD 01/18/2025 7:30 AM [facility] Neutrophils Absolute 3.58 1.50 - 7.00 K/mcL LAB HEMETOLOGY METHOD 01/18/2025 7:30 AM [facility] Lymphocytes Absolute 1.18 1.00 - 5.00 K/mcL LAB HEMETOLOGY METHOD 01/18/2025 7:30 AM [facility] Monocytes Absolute 0.49 0.20 - 1.00 K/mcL LAB HEMETOLOGY METHOD 01/18/2025 7:30 AM [facility] Eosinophils Absolute 0.08 0.00 - 0.50 K/mcL LAB HEMETOLOGY METHOD 01/18/2025 7:[address] [facility] Basophils Absolute 0.02 0.00 - 0.20 K/[facility] LAB HEMETOLOGY METHOD 01/18/2025 7:[address] [facility] Immature Granulocytes Absolute 0.03 0.00 - 0.03 K/[facility] LAB HEMETOLOGY METHOD 01/18/2025 7:[address] [facility] Blood Venous blood specimen / Unknown Venipuncture / Unknown 01/18/2025 6:48 AM EDT 01/18/2025 7:08 AM EDT Tiera Louise MD LAB BLOOD ORDERABLES Final Res ult Performing Organization Address [facility]/ZIP Co de Phone Number [facility] [address] [place] [address], [place] [phone] * Magnesium (01/18/2025 6:48 AM EDT) Only the most recent of6 resultswithin the time period is included. Magnesium 2.0 1.9 - 2.6 mg/dL LAB CHEMISTRY METHOD 01/18/2025 12:[address] [facility] Blood Venous blood specimen / Unknown Venipuncture / Unknown 01/18/2025 6:48 AM EDT 01/18/2025 7:08 AM EDT Tiera Louise MD LAB BLOOD ORDERABLES Final Res ult Performing Organization Address City/[facility]/ZIP Co de Phone Number [facility] [address] [place] [address], [place] [phone] * Ammonia (01/18/2025 6:48 AM EDT) Ammonia 28 11 - 35 mcmol/L LAB CHEMISTRY METHOD 01/18/2025 7:[address] [facility] Blood Venous blood specimen / Unknown Venipuncture / Unknown 01/18/2025 6:48 AM EDT 01/18/2025 7:08 AM EDT us Tiera Louise MD LAB BLOOD ORDERABLES Final Res ult [facility] [address] [place] [address], [place] [phone] * (ABNORMAL) Hepatic function panel (01/18/2025 6:48 AM EDT) Only the most recent of3 resultswithin the time period is included. Total Protein 5.2(L) 6.0 - 8.0 g/dL LAB CHEMISTRY METHOD 01/18/2025 7:[address] [facility] Albumin 2.7(L) 3.2 - 5.0 g/dL LAB CHEMISTRY METHOD 01/18/2025 7:[address] [facility] Total Bilirubin 0.5 0.0 - 1.4 mg/dL LAB CHEMISTRY METHOD 01/18/2025 7:[address] [facility] Bilirubin, Direct 0.2 0.0 - 0.3 mg/dL LAB CHEMISTRY METHOD 01/18/2025 7:50 AM [facility] Bilirubin, Indirect 0.3 0.0 - 1.1 mg/dL LAB CHEMISTRY METHOD 01/18/2025 7:[address] [facility] ALT (SGPT) 169(H) 10 - 60 unit/L LAB CHEMISTRY METHOD 01/18/2025 7:50 AM [facility] AST (SGOT) 24 10 - 42 unit/L LAB CHEMISTRY METHOD 01/18/2025 7:50 AM [facility] Alkaline Phosphatase 122(H) 42 - 121 unit/L LAB CHEMISTRY METHOD 01/18/2025 7:[address] [facility] Blood Venous blood specimen / Unknown Venipuncture / Unknown 01/18/2025 6:48 AM EDT 01/18/2025 7:08 AM EDT us Tiera Louise MD LAB BLOOD ORDERABLES Final Res ult [facility] [address] [place] [address], [place] [phone] * (ABNORMAL) Basic metabolic panel (01/18/2025 6:48 AM EDT) Only the most recent of4 resultswithin the time period is included. Sodium 139 133 - 145 mmol/L LAB CHEMISTRY METHOD 01/18/2025 7:50 AM [facility] Potassium 4.1 3.5 - 5.5 mmol/L LAB CHEMISTRY METHOD 01/18/2025 7:50 AM [facility] Chloride 104 96 - 110 mmol/L LAB CHEMISTRY METHOD 01/18/2025 7:50 AM [facility] CO2 32 21 - 32 mmol/L LAB CHEMISTRY METHOD 01/18/2025 7:50 AM [facility] Anion Gap 3 3 - 11 LAB CHEMISTRY METHOD 01/18/2025 7:50 AM [facility] Glucose 106(H) 70 - 100 mg/dL LAB CHEMISTRY METHOD 01/18/2025 7:50 AM [facility] BUN 11 5 - 25 mg/dL LAB CHEMISTRY METHOD 01/18/2025 7:50 AM [facility] Creatinine 0.87 0.50 - 1.10 mg/dL LAB CHEMISTRY METHOD 01/18/2025 7:50 AM [facility] eGFR 80 >=60 mL/min/1. 73m2 LAB CHEMISTRY METHOD 01/18/2025 7:50 AM [facility] Comment:Calculation based on the??Chronic Kidney Disease Epidemiology Collaboration (CKD-EPI) equation refit??without adjustment for race. BUN/Creatinine Ratio 12.6 LAB CHEMISTRY METHOD 01/18/2025 7:[address] [facility] Calcium 8.7 8.5 - 10.5 mg/dL LAB CHEMISTRY METHOD 01/18/2025 7:[address] [facility] Blood Venous blood specimen / Unknown Venipuncture / Unknown 01/18/2025 6:48 AM EDT 01/18/2025 7:08 AM EDT us Tiera Louise MD LAB BLOOD ORDERABLES Final Res ult [facility] [address] [place] [address], * Hepatitis B virus molecular study quantitative (01/17/2025 8:35 AM EDT) Pathologist [facility] Hepatitis B Virus DNA Qualitative Not detected Not detected 01/19/2025 1:35 PM EDT [facility] Hepatitis B Virus DNA, Quantitative <10 <10 IU/mL 01/19/2025 1:35 PM EDT [facility] Log Hepatitis B Virus DNA <1.00 <1.00 Log (10) IU/mL 01/19/2025 1:35 PM EDT [facility] Comment: This procedure utilizes a real-time polymerase chain reaction test from [employer]. ??The amplification target is a conserved region in the terminal third of the hepatitis B surface antigen gene. The lower limit of quantitation is 10 IU/mL (1.00 Log IU/mL) and the uppper limit of quantitation is 1 billion IU/mL (9.00 Log IU/mL). The qualitative limit of detection is 10 IU/mL (1.00 Log IU/mL). A Not detected result does not rule out infection. Test performed at [facility], [address] , [place], [place] ??[address] ? [phone] Perla Herring MD, PhD - Booth Usher Blood Venous blood specimen / Unknown Venipuncture / Unknown 01/17/2025 8:35 AM EDT 01/17/2025 8:50 AM EDT Tiera Louise MD LAB BLOOD ORDERABLES Final Res ult [facility] [address] [place] [address] * SST tube (01/17/2025 8:33 AM EDT) Only the most recent of2 resultswithin the time period is included. Extra Tube Hold for add-ons. 01/17/2025 10:[address] [facility] Comment:Auto resulted. Blood Venous blood specimen / Unknown 01/17/2025 8:33 AM EDT 01/17/2025 8:51 AM EDT Tiera Louise MD LAB BLOOD ORDERABLES Final Res ult Performing Organization Address [facility]/ZIP Co de Phone Number [facility] [address] [place] [address], [place] [phone] * (ABNORMAL) Phosphorus (01/17/2025 6:12 AM EDT) Only the most recent of2 resultswithin the time period is included. Phosphorus 2.4(L) 2.5 - 4.5 mg/dL LAB CHEMISTRY METHOD 01/17/2025 8:[address] [facility] Blood Venous blood specimen / Unknown Venipuncture / Unknown 01/17/2025 6:12 AM EDT 01/17/2025 7:32 AM EDT Sal Londono MD LAB BLOOD ORDERABLES F inal Result Performing Organization Address City/[facility]/ZIP Co de Phone Number [facility] [address] [place] [address], [place] [phone] * (ABNORMAL) Urinalysis with reflex microscopic and culture (01/16/2025 4:42 AM EDT) Only the most recent of2 resultswithin the time period is included. Specific [place] Urine 1.015 1.003 - 1.030 LAB URINALYSIS - AUTOMATED METHOD 01/16/2025 6:01 AM [facility] pH, Urine 6.0 5.0 - 8.0 pH LAB URINALYSIS - AUTOMATED METHOD 01/16/2025 6:01 AM [facility] Leukocytes, Urine Trace(A) Negative LAB URINALYSIS - AUTOMATED METHOD 01/16/2025 6:01 AM [facility] Nitrite, Urine Negative Negative LAB URINALYSIS - AUTOMATED METHOD 01/16/2025 6:01 AM [facility] Protein, Urine 30(A) <=Trace mg/dL LAB URINALYSIS - AUTOMATED METHOD 01/16/2025 6:01 AM [facility] Glucose, Urine Negative Negative mg/dL LAB URINALYSIS - AUTOMATED METHOD 01/16/2025 6:01 AM [facility] Ketones, Urine Negative Negative mg/dL LAB URINALYSIS - AUTOMATED METHOD 01/16/2025 6:01 AM [facility] Urobilinogen , Urine 0.2 0.2 - 1.0 mg/dL LAB URINALYSIS - AUTOMATED METHOD 01/16/2025 6:01 AM [facility] Bilirubin, Urine Negative Negative LAB URINALYSIS - AUTOMATED METHOD 01/16/2025 6:01 AM [facility] Blood, Urine Trace(A) Negative LAB URINALYSIS - AUTOMATED METHOD 01/16/2025 6:01 AM [facility] RBC, Urine 2.5 0 - 4 /HPF LAB URINALYSIS - AUTOMATED METHOD 01/16/2025 6:01 AM [facility] WBC, Urine 7.5(H) 0 - 4 /HPF LAB URINALYSIS - AUTOMATED METHOD 01/16/2025 6:[address] [facility] Squamous Epithelial, Urine 34 0 - 60 /LPF LAB URINALYSIS - AUTOMATED METHOD 01/16/2025 6:[address] [facility] Crystals, Urine LT WOJCIECH PHOSPHATE /LPF LAB URINALYSIS - AUTOMATED METHOD 01/16/2025 6:[address] [facility] Bacteria, Urine Negative Negative /HPF LAB URINALYSIS - AUTOMATED METHOD 01/16/2025 6:[address] [facility] Hyaline Casts, Urine 2.0 0 - 3 /LPF LAB URINALYSIS - AUTOMATED METHOD 01/16/2025 6:[address] [facility] Urine Urine specimen from urinary conduit / Unknown Non-blood Collection / Unknown 01/16/2025 4:42 AM EDT 01/16/2025 5:15 AM EDT Mala GOMEZ LAB URINE ORDERABLES Final Result Performing Organization Address [facility]/ZIP Co de Phone Number [facility] [address] [place] [address], * Phillip urine culture tube (01/16/2025 4:42 AM EDT) Only the most recent of2 resultswithin the time period is included. Extra Tube Hold for add-ons. 01/16/2025 7:[address] [facility] Comment:Auto resulted. Urine Urine specimen from urinary conduit / Unknown Non-blood Collection / Unknown 01/16/2025 4:42 AM EDT 01/16/2025 5:15 AM EDT Mala GOMEZ LAB URINE ORDERABLES Final Result Performing Organization Address [facility]/ZIP Co de Phone Number [facility] [address] [place] [address], [place] [phone] * US Abdomen Limited (01/15/2025 7:28 AM EDT) Anatomical Region Laterality Modality Body Ultrasound 01/15/2025 8:34 AM EDT Impressions 01/15/2025 8:40 AM EDT Hypoechoic appearance of the liver parenchyma, with an echogenic appearance of the portal triads, a finding which can be seen in the setting of hepatitis. Cholecystectomy. ??Dilatation of the common duct which could be secondary to a post cholecystectomy reservoir effect. -------- FINAL REPORT -------- Dictated By: Hari Alfaro Dictated Date: 01/15/2025 08:34 ET Assigned Physician: Hari Alfaro Reviewed and Electronically Signed By: Hari Alfaro Signed Date: 01/15/2025 08:40 ET Workstation ID: [id number] Transcribed By: Self Edit Transcribed Date: 01/15/2025 08:38 ET Narrative 01/15/2025 8:40 AM EDT PROCEDURE: Right upper quadrant ultrasound. HISTORY: OTHER critical high lfts. COMPARISON:09/24/2017. TECHNIQUE: Grayscale, color Doppler, and spectral Doppler ultrasound evaluation of the right upper quadrant of the abdomen. FINDINGS: LIVER: The liver appears hypoechoic, with an echogenic appearance of the portal triads. ??No focal lesion. ??Normal flow in the main portal vein. BILIARY: Cholecystectomy. ??The common duct measures 1.1 cm in diameter. ??No intrahepatic ductal dilatation. ??No visible ductal filling defect. PANCREAS: Visualized portions are normal. RIGHT KIDNEY: Normal size and echotexture. ??No hydronephrosis or focal lesion. Procedure Note Hari Alfaro MD - 01/15/2025 PROCEDURE: Right upper quadrant ultrasound. HISTORY: OTHER critical high lfts. COMPARISON:09/24/2017. TECHNIQUE: Grayscale, color Doppler, and spectral Doppler ultrasoundevaluation of the right upper quadrant of the abdomen. FINDINGS: LIVER: The liver appears hypoechoic, with an echogenic appearance of theportal triads. No focal lesion. Normal flow in the main portal vein. BILIARY: Cholecystectomy. The common duct measures 1.1 cm in diameter.No intrahepatic ductal dilatation. No visible ductal filling defect. PANCREAS: Visualized portions are normal. RIGHT KIDNEY: Normal size and echotexture. No hydronephrosis or focallesion. IMPRESSION: Hypoechoic appearance of the liver parenchyma, with an echogenicappearance of the portal triads, a finding which can be seen in thesetting of hepatitis. Cholecystectomy. Dilatation of the common duct which could be secondaryto a post cholecystectomy reservoir effect. -------- FINAL REPORT -------- Dictated By: Hari Alfaro Dictated Date: 01/15/2025 08:34 ET Assigned Physician: Hari Alfaro Reviewed and Electronically Signed By: Hari Alfaro Signed Date: 01/15/2025 08:40 ET Workstation ID: [id number] Transcribed By: Self Edit Transcribed Date: 01/15/2025 08:38 ET us Mala GOMEZ IMG US PROCEDURES Final Re sult * Tissue exam (01/14/2025 3:33 PM EDT) Final Diagnosis Colon, low anterior resection: - Patchy active colitis associated with an ischemic pattern of mucosal injury (ischemic colitis). (See note.) - Diverticulosis coli. - Mucosal prolapse polyp with associated crypt architectural distortion and hemosiderin laden macrophages. Note: The ischemic injury is likely related to the clinical history of rectal prolapse, the mechanical effects of which can result in vascular compromise. 01/18/2025 4:02 PM EDT [facility] Comment Tester Operator slide(s) from this case have been presented at Anatomic Pathology Intradepartmental Review Conference on 01/18/25. 01/18/2025 4:02 PM EDT [facility]) [facility] Gross Description A. Colon, Low anterior resection: Labeled colon, low anter . Received in formalin is a 33 cm in length segment of rectosigmoid colon with one stapled margin, one open margin, and minimal attached pericolic fat. The serosa is pink-purple, smooth and glistening. The mucosa at the distal margin is red-brown and dusky extending 3.5 cm from the distal margin. The cut surfaces are red-brown, dusky and hemorrhagic. The uninvolved mucosa is diaz-pink and glistening with normal folds and innumerable diverticula throughout. The bowel wall is thickened up to 1.4 cm in thickness. A 1.5 x 1 x 0.6 cm red-brown mucosal polyp is identified 15 cm from the distal margin and 16 cm from the proximal margin. The polyp is grossly confined to the mucosa. The margins are differentially inked proximal blue, distal black. Gross photographs are taken. Tester Operator sections are submitted as follows: 1, perpendicular proximal margin, one piece 2, perpendicular distal margin, one piece 3, transition to dusky area adjacent to distal margin, one piece 4, bisected mucosal polyp, two pieces 5 and 6, diverticula, one piece each LATOYA 01/18/2025 4:[address] [facility] Disclaimer Unless otherwise specified, all tissue is 10% NB formalin fixed and paraffin embedded. 01/18/2025 4:[address] [facility] Tissue Colon structure / Unknown 01/14/2025 3:33 PM EDT 01/17/2025 7:06 AM EDT us Sebastian Sanabria MD LAB PATHOLOGY ORDERABLES Fi nal Result [facility] [address] [place] [address], * TH AN ENDOTRACHEAL(NO CHARGE) (01/14/2025 1:38 PM EDT) Narrative Sofía Neumann CRNA - 01/14/2025 1:38 PM EDT Sofía Neumann CRNA ? 01/14/2025 ??1:38 PM General Information and Staff Patient location during procedure: OR Performed by: Sofía Neumann CRNA Authorized by: Jovi Hernandez, DO ?? Intubation Airway not difficult Urgency: elective Final Airway Details Successful airway: ETT Cuffed: yes Successful intubation technique: video laryngoscopy Facilitating devices/methods: intubating stylet Endotracheal tube insertion site: oral Blade: Rachid Blade size: #3 ETT size (mm): 7.0 Cormack-Lehane Classification: grade I - full view of glottis Placement verified by: chest auscultation and capnometry Measured from: lips ETT to lips (cm): 22 Number of attempts at approach: 1 Ventilation between attempts: BVM Number of other approaches attempted: 0Final airway type: endotracheal airway Indications and Patient Condition Indications for airway management: anesthesia and airway protection Spontaneous ventilation: present Sedation level: Yes Preoxygenated: yes Soft Tissue Damage: No Dentition Unchanged: Yes Patient position: neutral MILS maintained throughout Mask difficulty assessment: 2 - vent by mask + OA or adjuvant +/- NMBA Start Time: 01/14/2025 1:24 PMStop Time: 01/14/2025 1:24 PM us Jovi Hernandez DO ANESTHESIA ORDERABLES Final Res ult * MAGEN IFA with titer and pattern (01/14/2025 1:00 PM EDT) MAGEN Negative Negative 01/17/2025 2:[address] [facility] Blood Venous blood specimen / Unknown Venipuncture / Unknown 01/14/2025 1:00 PM EDT 01/14/2025 1:19 PM EDT us Mala GOMEZ LAB BLOOD ORDERABLES Final Result [facility] [address] [place] [address], [place] [phone] * Mononucleosis screen (01/14/2025 1:00 PM EDT) Monospot Negative Negative 01/14/2025 2:[address] [facility] Blood Venous blood specimen / Unknown Venipuncture / Unknown 01/14/2025 1:00 PM EDT 01/14/2025 1:19 PM EDT us Mala GOMEZ LAB BLOOD ORDERABLES Final Result [facility] [address] [place] [address], * Herpes simplex virus 1 and 2 molecular study, qualitative (01/14/2025 12:58 PM EDT) Specimen Source Blood - EDTA 01/17/2025 11:06 AM EDT [facility] Herpes simplex Virus I Not detected Not detected 01/17/2025 11:06 AM EDT [facility] Herpes simplex Virus II Not detected Not detected 01/17/2025 11:06 AM EDT [facility] Comment: This test utilizes a real-time polymerase chain reaction procedure to amplify and detect portions of the herpes simplex virus glycoprotein G genes. ??The analytical sensitivity of this assay is 50 copies/mL. A Not detected result does not rule out infection. This test uses commercial reagents that have not been approved or cleared by the FDA. ??The FDA has determined that such clearance or approval is not necessary. ??The performance characteristics of this procedure were determined by [facility]. This test is performed pursuant to a license agreement with [employer] Test performed at [facility], [address] , [place], [place] ??[address] ? [phone] Perla Herring MD, PhD - Booth Usher Blood Venous blood specimen / Unknown Venipuncture / Unknown 01/14/2025 12:58 PM EDT 01/14/2025 1:19 PM EDT Mala GOMEZ LAB MICROBIOLOGY - GENERAL ORDERABLES Final Result [facility] [address] [place] [address] * Smooth muscle antibody IgG (01/14/2025 12:58 PM EDT) Smooth Muscle (F-Actin) IgG Ab 6 <20 UNITS 01/17/2025 2:32 PM EDT [facility] Comment: Interpretation: Negative Test performed at [facility], [address] [place], [place] ??[address] ? [phone] Perla Herring MD, PhD - Booth Usher Blood Venous blood specimen / Unknown Venipuncture / Unknown 01/14/2025 12:58 PM EDT 01/14/2025 1:19 PM EDT Mala GOMEZ LAB BLOOD ORDERABLES Final Result [facility] [address] [place] [address] * Hepatitis C virus quantitative molecular study (01/14/2025 11:07 AM EDT) [facility] HCV Qual Interp Not Detected Not Detected LAB MOLECULAR DIAGNOSTICS METHOD 01/19/2025 6:[address] [facility] Comment:HCV RNA not detected , unable to report quantitative results. Blood Venous blood specimen / Unknown Venipuncture / Unknown 01/14/2025 11:07 AM EDT 01/14/2025 11:11 AM EDT Pipo Gomez MD LAB BLOOD ORDERABLES Final Re sult Performing Organization Address City/[facility]/ZIP Co de Phone Number [facility] [address] [place] [address], * Hepatitis A antibody, total (01/14/2025 11:07 AM EDT) Pathologist [facility] Hepatitis A Antibody Negative Negative 01/17/2025 1:42 PM EDT [facility] Comment: Test performed at [facility], [address] [place], [place] ??[address] ? [phone] Perla Herring MD, PhD - Booth Usher Blood Venous blood specimen / Unknown Venipuncture / Unknown 01/14/2025 11:07 AM EDT 01/14/2025 11:11 AM EDT Pipo Gomez MD LAB BLOOD ORDERABLES Final Re sult Performing Organization Address City/[facility]/ZIP Co de Phone Number [place] [address] * (ABNORMAL) Acetaminophen level (01/14/2025 11:07 AM EDT) Only the most recent of2 resultswithin the time period is included. Acetaminophen Level <2.0(L) 10.0 - 30.0 mcg/mL LAB CHEMISTRY METHOD 01/14/2025 12:[address] [facility] Blood Venous blood specimen / Unknown Venipuncture / Unknown 01/14/2025 11:07 AM EDT 01/14/2025 11:11 AM EDT us Pipo Gomez MD LAB BLOOD ORDERABLES Final Re sult Performing Organization Address [facility] Co de Phone Number [facility] [address] [place] [address], [place] [phone] * Prothrombin time with INR (01/14/2025 10:08 AM EDT) [facility] Protime 11.9 10.6 - 13.9 sec LAB COAGULATION METHOD 01/14/2025 10:[address] [facility] INR 0.9 LAB COAGULATION METHOD 01/14/2025 10:[address] [facility] Blood Venous blood specimen / Unknown Venipuncture / Unknown 01/14/2025 10:08 AM EDT 01/14/2025 10:12 AM EDT Alissa GOMEZ LAB BLOOD ORDERABLES Final Res ult Performing Organization Address [facility] Co de Phone Number [facility] [address] [place] [address], [place] [phone] * Hepatitis C antibody (01/14/2025 10:07 AM EDT) [facility] Hepatitis C Antibody Negative Negative LAB CHEMISTRY METHOD 01/14/2025 12:[address] [facility] Blood Venous blood specimen / Unknown 01/14/2025 10:07 AM EDT 01/14/2025 10:13 AM EDT us Pipo Gomez MD LAB BLOOD ORDERABLES Final Re sult Performing Organization Address [facility] Co de Phone Number [facility] [address] [place] [address], [place] [phone] * Hepatitis B surface antigen with reflex to confirmation (01/14/2025 10:07 AM EDT) [facility] Hepatitis B Surface Ag Negative Negative LAB CHEMISTRY METHOD 01/14/2025 11:[address] [facility] Blood Venous blood specimen / Unknown 01/14/2025 10:07 AM EDT 01/14/2025 10:[address] [facility] - 01/14/2025 11:43 AM EDT Over the counter supplements containing high doses of biotin may interfere with this assay. ??If interference is suspected, patients shoud be retested after refraining from biotin supplements for 72 hours. us Pipo Gomez MD LAB BLOOD ORDERABLES Final Re sult Performing Organization Address City/[facility] Co de Phone Number [facility] [address] [place] [address], [place] [phone] * Lavender tube (01/14/2025 10:07 AM EDT) [facility] Extra Tube Hold for add-ons. 01/14/2025 12:[address] [facility] Comment:Auto resulted. Blood Venous blood specimen / Unknown 01/14/2025 10:07 AM EDT 01/14/2025 10:13 AM EDT Freedom Brady MD LAB BLOOD ORDERABLES Final Result Performing Organization Address [facility]/ZIP Co de Phone Number [facility] [address] [place] [address], [place] [phone] * Hepatitis A antibody IgM (01/14/2025 10:07 AM EDT) Hepatitis A Antibody IgM Negative Negative LAB CHEMISTRY METHOD 01/14/2025 12:[address] [facility] Blood Venous blood specimen / Unknown 01/14/2025 10:07 AM EDT 01/14/2025 10:[address] [facility] - 01/14/2025 12:12 PM EDT Over the counter supplements containing high doses of biotin may interfere with this assay. ??If interference is suspected, patients shoud be retested after refraining from biotin supplements for 72 hours. Pipo Gomez MD LAB BLOOD ORDERABLES Final Re sult [facility] [address] [place] [address], [place] [phone] * Hepatitis B core antibody IgM (01/14/2025 10:07 AM EDT) Hep B Core IgM Negative Negative LAB CHEMISTRY METHOD 01/14/2025 12:[address] [facility] Blood Venous blood specimen / Unknown 01/14/2025 10:07 AM EDT 01/14/2025 10:[address] [facility] - 01/14/2025 12:11 PM EDT Over the counter supplements containing high doses of biotin may interfere with this assay. ??If interference is suspected, patients shoud be retested after refraining from biotin supplements for 72 hours. us Pipo Gomez MD LAB BLOOD ORDERABLES Final Re sult Performing Organization Address [facility]/ZIP Co de Phone Number [facility] [address] [place] [address], * Hepatitis B surface antibody (01/14/2025 10:07 AM EDT) Hepatitis B Surface Ab Negative Negative LAB CHEMISTRY METHOD 01/14/2025 11:[address] [facility] Hepatitis B Surface Ab Quantitative <3.1 mIU/mL LAB CHEMISTRY METHOD 01/14/2025 11:[address] [facility] Blood Venous blood specimen / Unknown 01/14/2025 10:07 AM EDT 01/14/2025 10:[address] [facility] - 01/14/2025 11:32 AM EDT >=10 mIU/mL is considered to be consistent with immunity. Pipo Gomez MD LAB BLOOD ORDERABLES Final Re sult Performing Organization Address [facility]/ZIP Co de Phone Number [facility] [address] [place] [address], * Hepatitis panel, acute with reflex to confirmation (01/14/2025 8:38 AM EDT) Hepatitis B Surface Ag Negative Negative LAB CHEMISTRY METHOD 01/14/2025 11:[address] [facility] Hepatitis A Antibody IgM Negative Negative LAB CHEMISTRY METHOD 01/14/2025 11:[address] [facility] Hep B Core IgM Negative Negative LAB CHEMISTRY METHOD 01/14/2025 11:[address] [facility] Hepatitis C Antibody Negative Negative LAB CHEMISTRY METHOD 01/14/2025 11:[address] [facility] Blood Venous blood specimen / Unknown Venipuncture / Unknown 01/14/2025 8:38 AM EDT 01/14/2025 9:02 AM EDT us Mala GOMEZ LAB BLOOD ORDERABLES Final Result Performing Organization Address [facility]/ZIP Co de Phone Number [facility] [address] [place] [address], [place] [phone] * Type and screen (01/14/2025 8:38 AM EDT) ABO Group O 01/14/2025 9:[address] [facility] Rh Type Positive 01/14/2025 9:[address] [facility] Antibody Screen Negative 01/14/2025 9:[address] [facility] Blood Venous blood specimen / Unknown Venipuncture / Unknown 01/14/2025 8:38 AM EDT 01/14/2025 9:02 AM EDT us Mala GOMEZ LAB BLOOD BANK TEST ORDERA BLES Final Result Performing Organization Address [facility] Co de Phone Number [facility] [address] [place] [address], [place] [phone] * (ABNORMAL) C-reactive protein (01/14/2025 8:38 AM EDT) C-Reactive Protein 0.63(H) <=0.50 mg/dL LAB CHEMISTRY METHOD 01/14/2025 9:[address] [facility] Blood Venous blood specimen / Unknown Venipuncture / Unknown 01/14/2025 8:38 AM EDT 01/14/2025 9:02 AM EDT us Pipo Gomez MD LAB BLOOD ORDERABLES Final Re sult Performing Organization Address City/[facility]/ZIP Co de Phone Number [facility] [address] [place] [address], * CT Maxillofacial wo Contrast (01/14/2025 5:51 AM EDT) Anatomical Region Laterality Modality Head and Neck Computed Tomogra phy 01/14/2025 6:46 AM EDT Impressions 01/14/2025 6:46 AM EDT Impression: 1. No intraorbital injury or orbital fractures. Left preseptal periorbital soft tissue swelling. 2. No fractures of the facial bones identified. This document has been electronically signed by: Blanco Carey MD on 01/14/2025 06:46:19 Narrative 01/14/2025 6:46 AM EDT INDICATION: Facial trauma CT orbits and maxillofacial bones without contrast Comparison: None Findings: The globes are intact. No retrobulbar hematoma or post septal swelling is seen. No orbital fractures are present. Left preseptal periorbital soft tissue swelling. No fractures of the frontal calvarium, radha milton or cribriform plate. No facial fractures are identified. The zygomatic arches, pterygoid plates and hard palate are intact. The nasal bones and bridge are intact. The nasal septum is demonstrates mild deviation to the right. Maxillary spine intact. Both temporomandibular joints are congruent. The mandible are intact. Mild sphenoid sinusitis. No air-fluid levels. The ostiomeatal units and the infundibulum are patent. Procedure Note Blanco Carey MD - 01/14/2025 INDICATION: Facial trauma CT orbits and maxillofacial bones without contrast Comparison: None Findings: The globes are intact. No retrobulbar hematoma or post septal swellingis seen. No orbital fractures are present. Left preseptal periorbital soft tissue swelling. No fractures of the frontal calvarium, radha milton or cribriform plate. No facial fractures are identified. The zygomatic arches, pterygoidplates and hard palate are intact. The nasal bones and bridge are intact. The nasal septum is demonstrates mild deviation to the right. Maxillaryspine intact. Both temporomandibular joints are congruent. The mandible are intact. Mild sphenoid sinusitis. No air-fluid levels. The ostiomeatal units and the infundibulum are patent. IMPRESSION: Impression: 1. No intraorbital injury or orbital fractures. Left preseptalperiorbital soft tissue swelling. 2. No fractures of the facial bones identified. This document has been electronically signed by: Blanco Carey MD on 01/14/2025 06:46:19 Lakisha Aguirre MD IM CT PROCEDURES Final Result * CT Head wo Contrast (01/14/2025 5:51 AM EDT) Anatomical Region Laterality Modality Head and Neck Computed Tomogra phy 01/14/2025 6:51 AM EDT Impressions 01/14/2025 6:51 AM EDT Impression: 1. No CT evidence of acute intracranial pathology. This document has been electronically signed by: Blanco Carey MD on 01/14/2025 06:51:19 Narrative 01/14/2025 6:51 AM EDT INDICATION: Facial trauma CT head without IV contrast Comparison: None Findings: The ventricles are normal in configuration. Basilar cisterns intact. No intracranial hemorrhage, mass-effect or midline shift. No extra-axial fluid collections. The parenchyma is unremarkable in attenuation. Phillip-white matter junction preserved. No evidence of acute large vessel or territorial ischemia. Brainstem and cerebellum unremarkable. The calvarium is intact. The imaged portion of the paranasal sinuses are clear. No mastoid effusions. Left preseptal periorbital soft tissue swelling. Procedure Note Blanco Carey MD - 01/14/2025 INDICATION: Facial trauma CT head without IV contrast Comparison: None Findings: The ventricles are normal in configuration. Basilar cisterns intact. No intracranial hemorrhage, mass-effect or midline shift. No extra-axial fluid collections. The parenchyma is unremarkable in attenuation. Phillip-white matter junction preserved. No evidence of acute large vesselor territorial ischemia. Brainstem and cerebellum unremarkable. The calvarium is intact. The imaged portion of the paranasal sinuses are clear. No mastoid effusions. Left preseptal periorbital soft tissue swelling. IMPRESSION: Impression: 1. No CT evidence of acute intracranial pathology. This document has been electronically signed by: Blanco Carey MD on 01/14/2025 06:51:[address] [facility] [place]ED[place] Final Result * (ABNORMAL) Drug abuse screen 8a panel, urine (01/12/2025 12:08 PM EDT) Amphetamine Screen, Ur Negative Negative LAB CHEMISTRY METHOD 5 2:[address] [facility] Comment:Certain OTC medicati ons containing ephedrine, phenylephrine, pseudoephedrine and phenylpropanolamine can cause false positive results. Barbiturate Screen, Ur Negative Negative LAB [facility] Benzodiazepine Screen, Ur Negative Negative LAB CHEMISTRY METHOD 5 2:06 PM [facility] Cocaine Screen, Ur Negative Negative LAB [facility]MISTRY METHOD 5 2:[facility] Opiate Screen, Ur Negative Negative LAB CHEMISTRY METHOD 5 2:06 PM [facility] Cannabinoid (THC) Screen, Ur Positive(A ) Negative LAB CHEMISTRY METHOD 5 2:06 PM [facility] Comment:Specimens from patie nts taking pantoprazole sodium (Protonix) have been shown to produce false positive results. Oxycodone Screen, Ur Negative Negative LAB CHEMISTRY METHOD 5 2:[address] [facility] Fentanyl, Ur Negative Negative LAB CHEMISTRY METHOD 5 2:06 PM [facility] Urine Urine specimen obtained by clean catch procedure / Unknown Non-blood Collection / Unknown 01/12/2025 12:08 PM EDT 01/12/2025 1:[address] [facility] - 01/12/2025 2:06 PM EDT Assay cutoffs: Amphetamines ? 1000 ng/mL Barbiturates ?200 ng/mL Benzodiazepines ?? 200 ng/mL Cocaine ? 300 ng/mL Fentanyl ?1 ng/mL Opiates ? 300 ng/mL Oxycodone ? 100 ng/mL THC ?50 ng/mL Semi-quantitative assay for screening purposes only. Unconfirmed screening result should not be used for non-medical purposes. *ALTERNATE METHOD CONFIRMATION DONE UPON REQUEST ONLY* us Justus GOMEZ LAB URINE ORDERABLES Final Re sult [facility] [address] [place] [address], [place] [phone] * CT Abdomen Pelvis w Contrast (01/12/2025 10:15 AM EDT) Anatomical Region Laterality Modality Body Computed Tomogra phy 01/12/2025 10:2 2 AM EDT Impressions 01/12/2025 10:40 AM EDT Wall thickening at the rectosigmoid compatible with an infectious or inflammatory proctocolitis. ??No abscess or free air. -------- FINAL REPORT -------- Dictated By: GEORGE GAVIRIA Dictated Date: 01/12/2025 10:22 ET Assigned Physician: GEORGE GAVIRIA Reviewed and Electronically Signed By: GEORGE GAVIRIA Signed Date: 01/12/2025 10:40 ET Workstation ID: [id number] Transcribed By: Self Edit Transcribed Date: 01/12/2025 10:23 ET Narrative 01/12/2025 10:40 AM EDT PROCEDURE: CT ABDOMEN/PELVIS INDICATION: Pain, diarrhea TECHNIQUE: CT of the abdomen and pelvis following the intravenous administration of 90cc Isovue 370. Multiplanar reformats. The examination was performed utilizing dose reduction techniques. Total DLP 443 COMPARISON: ??04/08/2024 FINDINGS: ?? LOWER THORAX: Severe left atrial dilation. ??Bibasilar atelectasis. HEPATOBILIARY: No focal suspicious liver lesions. ??Scattered hepatic cysts. ??Cholecystectomy with unchanged biliary duct dilatation, likely related to postcholecystectomy state. ??No obstructing stone or mass SPLEEN: No splenomegaly. PANCREAS: No focal mass or ductal dilatation. ADRENALS: Unchanged bilateral adrenal nodules, likely adenomas. KIDNEYS/URETERS: No hydronephrosis, stones, or solid mass. PELVIC ORGANS/BLADDER: Unremarkable. PERITONEUM / RETROPERITONEUM: No ascites or free air. No retroperitoneal lymphadenopathy. VESSELS: Abdominal aorta is normal in size. ??Portal vein is patent. GI TRACT: Wall thickening at the rectosigmoid with mild surrounding mesorectal edema. ??Colonic diverticulosis. ??No bowel obstruction. ??No evidence of appendicitis in the right lower quadrant. ??Moderate stool throughout the colon. BONES AND SOFT TISSUES: Scattered degenerative changes seen throughout the bones. Soft tissues are unremarkable. Procedure Note George Gaviria MD - 01/12/2025 PROCEDURE: CT ABDOMEN/PELVIS INDICATION: Pain, diarrhea TECHNIQUE: CT of the abdomen and pelvis following the intravenousadministration of 90cc Isovue 370. Multiplanar reformats. The examinationwas performed utilizing dose reduction techniques. Total DLP 443 COMPARISON: 04/08/2024 FINDINGS: LOWER THORAX: Severe left atrial dilation. Bibasilar atelectasis. HEPATOBILIARY: No focal suspicious liver lesions. Scattered hepaticcysts. Cholecystectomy with unchanged biliary duct dilatation, likelyrelated to postcholecystectomy state. No obstructing stone or mass SPLEEN: No splenomegaly. PANCREAS: No focal mass or ductal dilatation. ADRENALS: Unchanged bilateral adrenal nodules, likely adenomas. KIDNEYS/URETERS: No hydronephrosis, stones, or solid mass. PELVIC ORGANS/BLADDER: Unremarkable. PERITONEUM / RETROPERITONEUM: No ascites or free air. No retroperitoneallymphadenopathy. VESSELS: Abdominal aorta is normal in size. Portal vein is patent. GI TRACT: Wall thickening at the rectosigmoid with mild surroundingmesorectal edema. Colonic diverticulosis. No bowel obstruction. Noevidence of appendicitis in the right lower quadrant. Moderate stoolthroughout the colon. BONES AND SOFT TISSUES: Scattered degenerative changes seen throughout thebones. Soft tissues are unremarkable. IMPRESSION: Wall thickening at the rectosigmoid compatible with an infectious orinflammatory proctocolitis. No abscess or free air. -------- FINAL REPORT -------- Dictated By: GEORGE GAVIRIA Dictated Date: 01/12/2025 10:22 ET Assigned Physician: GEORGE GAVIRIA Reviewed and Electronically Signed By: GEORGE GAVIRIA Signed Date: 01/12/2025 10:40 ET Workstation ID: [id number] Transcribed By: Self Edit Transcribed Date: 01/12/2025 10:23 ET Justus GOMEZ IMG CT PROCEDURES Final Resul t * hCG, serum, qualitative (01/12/2025 6:44 AM EDT) Pathologist [facility] hCG Qual Negative Negative 01/12/2025 9:[address] [facility] Blood Venous blood specimen / Unknown Venipuncture / Unknown 01/12/2025 6:44 AM EDT 01/12/2025 7:17 AM EDT Justus GOMEZ LAB BLOOD ORDERABLES Final Re sult Performing Organization Address [facility]/ZIP Co de Phone Number [facility] [address] [place] [address], [place] [phone] * (ABNORMAL) Salicylate Level (01/12/2025 6:44 AM EDT) Pathologist [facility] Salicylate Level 1.9(L) 2.0 - 29.0 mg/dL LAB CHEMISTRY METHOD 01/12/2025 9:[address] [facility] Blood Venous blood specimen / Unknown Venipuncture / Unknown 01/12/2025 6:44 AM EDT 01/12/2025 7:17 AM EDT Justus GOMEZ LAB BLOOD ORDERABLES Final Re sult [facility] [address] [place] [address], [place] [phone] * Urinalysis with reflex microscopic (11/11/2024 10:28 AM EST) Specific [place] Urine 1.022 1.003 - 1.030 LAB URINALYSIS - AUTOMATED METHOD 11/11/2024 12:[address] [facility] pH, Urine 6.0 5.0 - 8.0 pH LAB URINALYSIS - AUTOMATED METHOD 11/11/2024 12:37 PM [facility] Leukocytes, Urine Negative Negative LAB URINALYSIS - AUTOMATED METHOD 11/11/2024 12:37 PM [facility] Nitrite, Urine Negative Negative LAB URINALYSIS - AUTOMATED METHOD 11/11/2024 12:37 PM [facility] Protein, Urine Trace <=Trace mg/dL LAB URINALYSIS - AUTOMATED METHOD 11/11/2024 12:37 PM [facility] Glucose, Urine Negative Negative mg/dL LAB URINALYSIS - AUTOMATED METHOD 11/11/2024 12:37 PM [facility] Ketones, Urine Negative Negative mg/dL LAB URINALYSIS - AUTOMATED METHOD 11/11/2024 12:37 PM [facility] Urobilinogen, Urine 0.2 0.2 - 1.0 mg/dL LAB URINALYSIS - AUTOMATED METHOD 11/11/2024 12:37 PM [facility] Bilirubin, Urine Negative Negative LAB URINALYSIS - AUTOMATED METHOD 11/11/2024 12:37 PM [facility] Blood, Urine Negative Negative LAB URINALYSIS - AUTOMATED METHOD 11/11/2024 12:37 PM [facility] Urine Urine specimen obtained by clean catch procedure / Unknown Non-blood Collection / Unknown 11/11/2024 10:28 AM EST 11/11/2024 10:28 AM EST us Irma GOMEZ LAB URINE ORDERABLES Final Re sult Performing Organization Address City/[facility]/ZIP Co de Phone Number [facility] [address] [place] [address], [place] [phone] * Culture urine (11/11/2024 10:28 AM EST) Pathologist [facility] Culture, Urine 10,000-49,000 CFU/mL Mixed bacterial morphotypes present suggestive of possible contamination during collection. Suggest appropriate recollection if clinically indicated. 11/12/2024 9:[address] [facility] Urine Urine specimen obtained by clean catch procedure / Unknown Non-blood Collection / Unknown 11/11/2024 10:28 AM EST 11/11/2024 10:28 AM EST us Irma GOMEZ LAB MICROBIOLOGY - GENERAL OR DERABLES Final Result Performing Organization Address [facility]/ZIP Co de Phone Number [facility] [address] [place] [address], [place] [phone] * (ABNORMAL) Vitamin D 25 hydroxy (11/11/2024 10:25 AM EST) [facility] Vit D, 25-Hydroxy 28.2(L) 30.0 - 80.0 ng/mL LAB CHEMISTRY METHOD 11/11/2024 12:[address] [facility] Blood Venous blood specimen / Unknown Venipuncture / Unknown 11/11/2024 10:25 AM EST 11/11/2024 10:25 AM EST us Irma GOMEZ LAB BLOOD ORDERABLES Final Re sult Performing Organization Address City/[facility]/ZIP Co de Phone Number [facility] [address] [place] [address], [place] [phone] * Hemoglobin A1c (11/11/2024 10:25 AM EST) [facility] Hemoglobin A1C 5.3 <6.5 % LAB CHEMISTRY METHOD 11/11/2024 1:[address] [facility] Mean Bld Glu Estim. 105 mg/dL LAB CHEMISTRY METHOD 11/11/2024 1:[address] [facility] Blood Venous blood specimen / Unknown Venipuncture / Unknown 11/11/2024 10:25 AM EST 11/11/2024 10:25 AM EST Irma GOMEZ LAB BLOOD ORDERABLES Final Re sult [facility] [address] [place] [address], [place] [phone] * (ABNORMAL) Vitamin B12 (11/11/2024 10:25 AM EST) Vitamin B-12 924(H) 250 - 900 pcg/mL LAB CHEMISTRY METHOD 11/11/2024 1:[address] [facility] Blood Venous blood specimen / Unknown Venipuncture / Unknown 11/11/2024 10:25 AM EST 11/11/2024 10:25 AM EST Irma GOMEZ LAB BLOOD ORDERABLES Final Re sult Performing Organization Address [facility]/ZIP Co de Phone Number [facility] [address] [place] [address], [place] [phone] * XR Lumbar Spine 4+ Views (11/11/2024 10:09 AM EST) Anatomical Region Laterality Modality Spine, L-spine Radiographic Nidhi ging 11/11/2024 10:4 5 AM EST Impressions 11/11/2024 11:18 AM EST 6 nonrib-bearing lumbar vertebrae. Mild spondylosis. -------- FINAL REPORT -------- Dictated By: Anitha Whitaker Dictated Date: 11/11/2024 10:45 ET Assigned Physician: Anitha Whitaker Reviewed and Electronically Signed By: Anitha Whitaker Signed Date: 11/11/2024 11:18 ET Workstation ID: [id number] Transcribed By: Self Edit Transcribed Date: 11/11/2024 10:48 ET Narrative 11/11/2024 11:18 AM EST LUMBOSACRAL SPINE, ??4 VIEWS INCLUDING OBLIQUES HISTORY: ??Low back pain. FINDINGS: There is a transitional vertebra at the lumbosacral junction, labeled L6 for the purposes of this dictation. There is normal alignment of the lumbosacral spine. ??No fractures are seen. There is minor endplate spurring at a few levels. There are Schmorl's nodes of the visualized lower lumbar spine. There is mild decreased disc height at L4-5 and L6-S1. There are surgical clips in the right upper quadrant. Procedure Note Anitha Whitaker MD - 11/11/2024 LUMBOSACRAL SPINE, 4 VIEWS INCLUDING OBLIQUES HISTORY: Low back pain. FINDINGS: There is a transitional vertebra at the lumbosacral junction,labeled L6 for the purposes of this dictation. There is normal alignment of the lumbosacral spine. No fractures areseen. There is minor endplate spurring at a few levels. There are Schmorl'snodes of the visualized lower lumbar spine. There is mild decreased disc height at L4-5 and L6-S1. There are surgical clips in the right upper quadrant. IMPRESSION: 6 nonrib-bearing lumbar vertebrae. Mild spondylosis. -------- FINAL REPORT -------- Dictated By: Anitha Whitaker Dictated Date: 11/11/2024 10:45 ET Assigned Physician: Anitha Whitaker Reviewed and Electronically Signed By: Anitha Whitaker Signed Date: 11/11/2024 11:18 ET Workstation ID: [id number] Transcribed By: Self Edit Transcribed Date: 11/11/2024 10:48 ET Irma GOMEZ IMG XR PROCEDURES Final Resul t * Colonoscopy (04/01/2024) Colonoscopy no interpretation , abstracted Anatomical Region Laterality Modality Other Historical Provider [facility] [place] Final Result * SCREENING MAMMOGRAPHY BI 2-VIEW BREAST INC CAD (12/23/2023 1:58 PM EDT) Anatomical Region Laterality Modality Radiographic Nidhi ging 11/18/2022 9:25 AM EST Narrative 12/24/2023 10:30 AM EDT This is a summary report. The complete report is available in the patient's medical record. If you cannot access the medical record, please contact the sending organization for a detailed fax or copy. Full field digital screening tomosynthesis mammography, reviewed with CAD and compared to previous. The breasts are composed of fatty and fibroglandular tissue. ??No suspicious mass, architectural distortion or suspicious calcifications are identified. IMPRESSION: : No mammographic evidence of malignancy. BIRADS 1-Negative; N. 5 year breast cancer risk assessment 2.3 % Lifetime breast cancer risk assessment 18.2 % Breast cancer risk category High (>20%) Procedure Note Seamus Del Cid MD - 05/24/2024 This is a summary report. The complete report is available in thepatient's medical record. If you cannot access the medical record, pleasecontact the sending organization for a detailed fax or copy. Full field digital screening tomosynthesis mammography, reviewed with CADand compared to previous. The breasts are composed of fatty andfibroglandular tissue. No suspicious mass, architectural distortion orsuspicious calcifications are identified. IMPRESSION: : No mammographic evidence of malignancy. BIRADS 1-Negative; N. 5 year breast cancer risk assessment 2.3 % Lifetime breast cancer risk assessment 18.2 % Breast cancer risk category High (>20%) Marc Longo MD IMG XR PROCEDURES Final Result * (ABNORMAL) Lipid panel (11/26/2023) LDL/HDL Ratio 4 0 - 4 Triglycerides 139 0 - 150 mg/dL Cholesterol 206(A) 0 - 200 mg/dL HDL 58 >=40 mg/dL LDL Cholesterol 121(A) 0 - 100 mg/dL Blood Venous blood specimen / Unknown Historical Provider LAB BLOOD ORDERABLES Maeve l Result * Hm Pap Smear (12/29/2015) Pap smear normal, abstracted Historical Provider HEALTH MAINTENANCE Final Result * HIV Screening (06/26/2009) HIV Screening abstracted Historical Provider HEALTH MAINTENANCE Final Result from Last 3 Months or Most Recently Relevant to Health Maintenance [place] MEDICARE [place]ICAID [place] Advance Directives Documents on File Type Date Recorded Patient Tester Operator Expl anation Advance Directives and Living Will 01/15/2025 1:22 PM Isadora Ramon PROXY Advance Directives and Living Will 01/14/2025 5:01 PM Health Care Proxy * Full Code - Default (Latest Code Status on File) Date Activated Date Inactivated Comments 01/14/2025 8:14 AM 01/19/2025 6:44 PM This is orde r is used when code status has not been discussed with the patient, or code status is otherwise unknown/unconfirmed To update the patient's code status, place a code status order. Do not modify or discontinue any currently active code status orders. Healthcare Agents on File Name Relationship Healthcare Agent [facility] Communication Isadora Ramon Mother Health Care Agent Care Teams Customer Assistance Associate Relationship Specialty Start Date End Date Marc Longo MD [address] [place] [id number] PCP - General Internal Medicine 07/14/15
--- OUTSIDE RECORDS SUMMARY | 2025-01-26 14:53 | XMS_ITS | Encounter Summary ---
Author Organization [employer] Address [address] [place] [address] Care Team Providers Care Finishing Department Supervisor Name Role Phone Marc Longo MD Primary Care Provider [phone] Encounter Details Date Type Department Care Team (Late st Contact Info) Description 01/20/2025 Lab Requisition [facility] - Main Lab [address] [facility] [place] [address] Courtney Roger MD [address] [phone] Anemia, unspecified; Other disorders of electrolyte and fluid balance, not elsewhere classified Social History Tobacco Use Types Packs/Day Years Used Date Smoking Tobacco: Every Day Cigarettes Smokeless Tobacco: Never Alcohol Use Standard Drinks/Week Comments No 0 [...] Orientation Straight 01/12/2025 8: 36 AM EDT documented as of this encounter Functional Status * Are you deaf or do you have serious difficulty hearing? Answer Date of Assessment Author No 01/14/2025 6:15 AM EDT Sandoval Yanes RN * Are you blind or do you have serious difficulty seeing, even when wearing glasses? Answer Date of Assessment Author No 01/14/2025 6:15 AM EDT Sandoval Yanes RN * Do you have serious difficulty walking or climbing stairs? Answer Date of Assessment Author Yes 01/14/2025 6:15 AM EDT Sandoval Yanes RN * Do you have serious difficulty dressing or bathing? Answer Date of Assessment Author Yes 01/14/2025 6:15 AM EDT Sandoval Yanes RN * Because of a physical, mental, or emotional condition, do you have serious difficulty doing errandsalone such as visiting the doctor? Answer Date of Assessment Author Yes 01/14/2025 6:15 AM EDT Sandoval Yanes RN documented as of this encounter Mental Status * Because of a physical, mental, or emotional condition, do you have serious difficulty concentrating, remembering, or making decisions? (5 years old or older) Answer Entry Date Author Yes 01/14/2025 6:15 AM SHANIT Sandoval Yanes RN documented in this encounter Plan of Treatment Upcoming Encounters Date Type Department Care Team (Late st Contact Info) Description 02/17/2025 9:45 AM EDT Clinical Support [facility] [address] [phone] 02/25/2025 8:45 AM EDT Office Visit [facility] [address] [phone] Sebastian Sanabria MD [address] [address] 06/21/2025 1:30 PM EDT Office Visit [facility] Hematology Oncology [address] [place] [address] Heide Covarrubias MD [address] [place] [address] documented as of this encounter Procedures Procedure Name Priority Date/Time Associated Diagnosis Comments COMPLETE BLOOD COUNT Routine 01/20/2025 6:13 AM EDT Anemia, unspecified Other disorders of electrolyte and fluid balance, not elsewhere classified COMPREHENSIVE METABOLIC PANEL Routine 01/20/2025 6:13 AM EDT Anemia, unspecified Other disorders of electrolyte and fluid balance, not elsewhere classified documented in this encounter Results * (ABNORMAL) Comprehensive metabolic panel (01/20/2025 6:13 AM EDT) Sodium 139 133 - 145 mmol/L LAB CHEMISTRY METHOD 01/20/2025 9:50 AM [facility] Potassium 4.5 3.5 - 5.5 mmol/L LAB CHEMISTRY METHOD 01/20/2025 9:50 AM [facility] Chloride 102 96 - 110 mmol/L LAB CHEMISTRY METHOD 01/20/2025 9:50 AM [facility] CO2 32 21 - 32 mmol/L LAB CHEMISTRY METHOD 01/20/2025 9:50 AM [facility] Anion Gap 5 3 - 11 LAB CHEMISTRY METHOD 01/20/2025 9:50 AM [facility] Glucose 113(H) 70 - 100 mg/dL LAB CHEMISTRY METHOD 01/20/2025 9:50 AM [facility] BUN 19 5 - 25 mg/dL LAB CHEMISTRY METHOD 01/20/2025 9:50 AM [facility] Creatinine 0.84 0.50 - 1.10 mg/dL LAB CHEMISTRY METHOD 01/20/2025 9:50 AM [facility] eGFR 83 >=60 mL/min/1. 73m2 LAB CHEMISTRY METHOD 01/20/2025 9:50 AM [facility] Comment:Calculation based on the??Chronic Kidney Disease Epidemiology Collaboration (CKD-EPI) equation refit??without adjustment for race. BUN/Creatinine Ratio 22.6 LAB CHEMISTRY METHOD 01/20/2025 9:50 AM [facility] Calcium 9.3 8.5 - 10.5 mg/dL LAB CHEMISTRY METHOD 01/20/2025 9:50 AM [facility] AST (SGOT) 18 10 - 42 unit/L LAB CHEMISTRY METHOD 01/20/2025 9:50 AM [facility] ALT (SGPT) 96(H) 10 - 60 unit/L LAB CHEMISTRY METHOD 01/20/2025 9:50 AM [facility] Alkaline Phosphatase 123(H) 42 - 121 unit/L LAB CHEMISTRY METHOD 01/20/2025 9:50 AM [facility] Total Protein 5.9(L) 6.0 - 8.0 g/dL LAB CHEMISTRY METHOD 01/20/2025 9:50 AM [facility] Albumin 3.0(L) 3.2 - 5.0 g/dL LAB CHEMISTRY METHOD 01/20/2025 9:50 AM [facility] Total Bilirubin 0.4 0.0 - 1.4 mg/dL LAB CHEMISTRY METHOD 01/20/2025 9:50 AM [facility] Blood Venous blood specimen / Unknown Venipuncture / Unknown 01/20/2025 6:13 AM EDT 01/20/2025 8:56 AM EDT us Courtney Roger MD LAB BLOOD ORDERABLES Fin al Result [facility] [address] [place] [address], * (ABNORMAL) Complete blood count (01/20/2025 6:13 AM EDT) WBC 4.8 4.8 - 10.8 K/mcL LAB HEMETOLOGY METHOD 01/20/2025 9:34 AM [facility] RBC 3.80 3.80 - 4.80 M/[facility] LAB HEMETOLOGY METHOD 01/20/2025 9:34 AM [facility] Hemoglobin 12.9 11.5 - 16.0 g/dL LAB HEMETOLOGY METHOD 01/20/2025 9:34 AM [facility] Hematocrit 38.3 35.0 - 47.0 % LAB HEMETOLOGY METHOD 01/20/2025 9:34 AM [facility] MCV 101.6(H) 79.0 - 98.0 FL LAB HEMETOLOGY METHOD 01/20/2025 9:34 AM [facility] MCH 34.2(H) 27.0 - 32.0 pcg LAB HEMETOLOGY METHOD 01/20/2025 9:34 AM [facility] MCHC 33.7 32.0 - 37.0 g/dL LAB HEMETOLOGY METHOD 01/20/2025 9:34 AM [facility] RDW 12.2 11.0 - 15.0 % LAB HEMETOLOGY METHOD 01/20/2025 9:34 AM [facility] Platelets 81(L) 130 - 400 K/mcL LAB HEMETOLOGY METHOD 01/20/2025 9:34 AM [facility] Comment:previously verified by slide MPV 12.0(H) 7.0 - 11.0 FL LAB HEMETOLOGY METHOD 01/20/2025 9:34 AM [facility] NRBC 0.0 <1.0 % LAB HEMETOLOGY METHOD 01/20/2025 9:34 AM [facility] NRBC Absolute 0.00 <0.10 K/mcL LAB HEMETOLOGY METHOD 01/20/2025 9:34 AM EDT [facility] Blood Venous blood specimen / Unknown Venipuncture / Unknown 01/20/2025 6:13 AM EDT 01/20/2025 8:56 AM EDT us Courtney Roger MD LAB BLOOD ORDERABLES Fin al Result Performing Organization Address City/State/[facility] Co de Phone Number [facility] [address] [place] [address], documented in this encounter Visit Diagnoses Diagnosis Anemia, unspecified Other disorders of electrolyte and fluid balance, not elsewhere classified documented in this encounter Care Teams Finishing Department Supervisor Relationship Specialty Start Date End Date Marc Longo MD [address] [place] [id number] PCP - General Internal Medicine 07/14/15 documented as of this encounter
--- OUTSIDE RECORDS SUMMARY | 2025-01-26 14:53 | XMS_ITS | Clinical Summary ---
Author Organization [facility] Address [address] [place] [address] Care Team Providers Care Claims Adjudicator Name Role Phone Marc Longo MD Primary Care Provider [phone] Allergies Active Allergy Reactions Criticality Noted Date Comments Aspirin 04/20/2007 Rash; NOT ALLERGIC PER PATIENT Rash; NOT ALLERGIC PER PATIENT Azithromycin Swelling 09/18/2015 Carisoprodol 07/21/2007 Codeine 11/17/2007 Gi upset Gi upset Diazepam 04/20/2007 gi upset,vom gi upset,vom Gabapentin 07/29/2014 nausea nausea Morphine 04/20/2007 gi upset,vom gi upset,vom Opium 02/02/2018 Oxycodone-Acetaminophen 04/20/2007 gi upset gi upset Zzv-Htu-Nqyn-Nasulf-Na Asc-C 08/01/2017 Pheniramine 04/20/2007 Prednisone 02/29/2016 nausea nausea Propoxyphene 12/10/2007 Other reaction(s): OTHER, Unknown Cannot take d/t to depression meds Cannot take d/t to depression meds Medications Medication Sig Dispensed Refills Start Date End Date Status amLODIPine (NORVASC) tablet 5 mg Take 1.5 tablets (7.5 mg total) by mouth daily. 0 12/08/2017 Active atorvastatin (LIPITOR) tablet 10 mg Take 1 tablet (10 mg total) by mouth daily. 0 05/21/2022 Active busPIRone (BUSPAR) 15 MG tablet Take 1 tablet (15 mg total) by mouth 3 (three) times a day. 0 07/31/2022 Active cyanocobalamin 1000 MCG tablet Take 2 tablets (2,000 mcg total) by mouth daily. 0 01/18/2022 Active dicyclomine (BENTYL) 10 MG capsule TAKE ONE CAPSULE BY MOUTH two (2) times a day NEEDED FOR abdominal PAIN 0 05/27/2022 Active Docusate Sodium (DSS) 100 MG CAPS TAKE ONE CAPSULE BY MOUTH 3 (THREE) TIMES A DAY NEEDED FOR CONSTIPATION 0 05/13/2017 Active FeroSul 325 (65 Fe) MG tablet Take 1 tablet (325 mg total) by mouth daily. 0 07/31/2022 Active folic acid (FOLVITE) tablet 1 mg Take 1 tablet (1,000 mcg total) by mouth daily. 0 07/31/2022 Active metoprolol succinate (TOPROL-XL) 24 hr tablet 25 mg Take 1 tablet (25 mg total) by mouth daily. 0 05/09/2022 Active omeprazole (PriLOSEC) 40 MG capsule TAKE ONE CAPSULE BY MOUTH 2 (two) times a day 0 05/27/2022 Active ondansetron (ZOFRAN) 4 MG tablet Take 1 tablet (4 mg total) by mouth every 8 (eight) hours as needed. 0 03/06/2022 Active promethazine (PHENERGAN) tablet 25 mg Take 1 tablet (25 mg total) by mouth. 0 06/13/2022 Active risperiDONE (RisperDAL) 0.5 MG tablet Take 1 tablet (0.5 mg total) by mouth every night at bedtime. 0 03/10/2019 Active sertraline (ZOLOFT) 100 MG tablet Take 1 1/2 tablet by mouth every morning 0 07/31/2022 Active traZODone (DESYREL) 100 MG tablet Take 1.5 tablet qd. 0 03/26/2022 Ac tive Active Problems No known active problems Social History Tobacco Use Types Packs/Day Years Used Date Smoking Tobacco: Every Day Cigarettes 0.5 35 Passive Smoke Exposure: Past Smokeless Tobacco: Never Tobacco Cessation:Ready to Q uit: Not Asked; Counseling Given: Not Answered Alcohol Use Standard Drinks/Week Comments Never 0 (1 standard drink = 0.6 oz pur e alcohol) Sex and Gender Information Value Date Recorded Sex Assigned at Not on file Gender Identity Not on file Sexual Orientation Not on file Job Start Date Occupation Industry Not on file Not on file Not on file Last Filed Vital Signs Vital Sign Reading Time Taken Comments Blood Pressure 120/42 06/22/2024 2:57 PM EDT Pulse 71 06/22/2024 2:57 PM EDT Temperature 37.7 ??C (99.8 ??F) 06/22/2024 2:57 PM ED T Respiratory Rate - - Oxygen Saturation 98% 06/22/2024 2:57 PM EDT Inhaled Oxygen Concentration - - Weight 50.8 kg (112 lb) 06/22/2024 2:57 PM EDT Height 149.9 cm (4' 11 ) 06/01/2024 9:25 AM EDT Body Mass Index 22.62 06/01/2024 9:25 AM EDT Plan of Treatment Health Maintenance Due Date Last Done Comments Hepatitis B Vaccines (1 of 3 - 3-dose series) 1971 Hepatitis C Screening 1971 COVID-19 Vaccine (#1) 1971 Pneumococcal Vaccine (1 of 2 - PCV) 1977 Depression Screening 1983 Preventative Health Evaluation 1989 Cervical Cancer Screening (P ap Smear) 1992 Colon Cancer Screening (Colonoscopy) 2016 DTap / Tdap / Td (2 - Td or Tdap) 06/07/2018 008 Breast Cancer Screening (Mammogram) 2021 Shingrix-Zoster Vaccine (1 of 2) 2021 Influenza Vaccine (#1) 2024 RSV Ped < 20 months Aged Out No longe r eligible based on patient's age to complete this topic Care Teams Claims Adjudicator Relationship Specialty Start Date End Date Marc Longo MD PCP - General Internal Medicine 06/24/22
--- OUTSIDE RECORDS SUMMARY | 2025-01-26 14:53 | XMS_ITS | Encounter Summary ---
Author Organization [employer] Address [address] [place] [address] Care Team Providers Care Open Die Inspector Name Role Phone Marc Longo MD Primary Care Provider [phone] Encounter Details Date Type Department Care Team (Late st Contact Info) Description 01/23/2025 Lab Requisition [facility] - Main Lab [address] [facility] [place] [address] Courtney Roger MD [address] [phone] Anemia, unspecified; Other disorders of electrolyte and [...] Description 02/17/2025 9:45 AM EDT Clinical Support [facility] [address] [address] 02/25/2025 8:45 AM EDT Office Visit [facility] [address] [phone] Sebastian Sanabria MD [address] [address] 06/21/2025 1:30 PM EDT Office Visit [facility] Hematology Oncology [address] [place] [address] Heide Covrarubias MD [address] [place] [address] documented as of this encounter Procedures Procedure Name Priority Date/Time Associated Diagnosis Comments COMPLETE BLOOD COUNT Routine 01/24/2025 9:25 AM EDT Anemia, unspecified Other disorders of electrolyte and fluid balance, not elsewhere classified COMPREHENSIVE METABOLIC PANEL Routine 01/24/2025 9:25 AM EDT Anemia, unspecified Other disorders of electrolyte and fluid balance, not elsewhere classified documented in this encounter Results * (ABNORMAL) Comprehensive metabolic panel (01/24/2025 9:25 AM EDT) Sodium 140 133 - 145 mmol/L LAB CHEMISTRY METHOD 01/24/2025 1:37 PM [facility] Potassium 4.3 3.5 - 5.5 mmol/L LAB CHEMISTRY METHOD 01/24/2025 1:37 PM [facility] Chloride 104 96 - 110 mmol/L LAB CHEMISTRY METHOD 01/24/2025 1:37 PM [facility] CO2 28 21 - 32 mmol/L LAB CHEMISTRY METHOD 01/24/2025 1:37 PM [facility] Anion Gap 8 3 - 11 LAB CHEMISTRY METHOD 01/24/2025 1:37 PM [facility] Glucose 91 70 - 100 mg/dL LAB CHEMISTRY METHOD 01/24/2025 1:37 PM [facility] BUN 30(H) 5 - 25 mg/dL LAB CHEMISTRY METHOD 01/24/2025 1:37 PM [facility] Creatinine 0.94 0.50 - 1.10 mg/dL LAB CHEMISTRY METHOD 01/24/2025 1:37 PM [facility] eGFR 73 >=60 mL/min/1. 73m2 LAB CHEMISTRY METHOD 01/24/2025 1:37 PM [facility] Comment:Calculation based on the??Chronic Kidney Disease Epidemiology Collaboration (CKD-EPI) equation refit??without adjustment for race. BUN/Creatinine Ratio 31.9 LAB CHEMISTRY METHOD 01/24/2025 1:37 PM EDT [facility] Calcium 9.7 8.5 - 10.5 mg/dL LAB CHEMISTRY METHOD 01/24/2025 1:37 PM [facility] AST (SGOT) 37 10 - 42 unit/L LAB CHEMISTRY METHOD 01/24/2025 1:37 PM [facility] ALT (SGPT) 67(H) 10 - 60 unit/L LAB CHEMISTRY METHOD 01/24/2025 1:37 PM EDT [facility] Alkaline Phosphatase 108 42 - 121 unit/L [facility] Total Protein 6.6 6.0 - 8.0 g/dL LAB CHEMISTRY METHOD 01/24/2025 1:37 PM EDT [facility] Albumin 3.4 3.2 - 5.0 g/dL LAB CHEMISTRY METHOD 01/24/2025 1:37 PM [facility] Total Bilirubin 0.3 0.0 - 1.4 mg/dL LAB CHEMISTRY METHOD 01/24/2025 1:37 PM T [facility] Blood Venous blood specimen / Unknown Venipuncture / Unknown 01/24/2025 9:25 AM EDT 01/24/2025 11:22 AM EDT us Courtney Roger MD LAB BLOOD ORDERABLES Fin al Result [facility] [address] [place] [address], * (ABNORMAL) Complete blood count (01/24/2025 9:25 AM EDT) WBC 8.8 4.8 - 10.8 K/mcL LAB HEMETOLOGY METHOD 01/24/2025 12:19 PM [facility] RBC 3.70(L) 3.80 - 4.80 M/mcL LAB HEMETOLOGY METHOD 01/24/2025 12:19 PM [facility] Hemoglobin 12.4 11.5 - 16.0 g/dL LAB HEMETOLOGY METHOD 01/24/2025 12:19 PM [facility] Hematocrit 37.7 35.0 - 47.0 % LAB HEMETOLOGY METHOD 01/24/2025 12:19 PM [facility] MCV 102.7(H) 79.0 - 98.0 FL LAB HEMETOLOGY METHOD 01/24/2025 12:19 PM [facility] MCH 33.8(H) 27.0 - 32.0 pcg LAB HEMETOLOGY METHOD 01/24/2025 12:19 PM [facility] MCHC 32.9 32.0 - 37.0 g/dL LAB HEMETOLOGY METHOD 01/24/2025 12:19 PM [facility] RDW 12.7 11.0 - 15.0 % LAB HEMETOLOGY METHOD 01/24/2025 12:19 PM [facility] Platelets 142 130 - 400 K/mcL LAB HEMETOLOGY METHOD 01/24/2025 12:19 PM [facility] MPV 11.8(H) 7.0 - 11.0 FL LAB HEMETOLOGY METHOD 01/24/2025 12:19 PM [facility] NRBC 0.0 <1.0 % LAB HEMETOLOGY METHOD 01/24/2025 12:19 PM [facility] NRBC Absolute 0.00 <0.10 K/mcL LAB HEMETOLOGY METHOD 01/24/2025 12:19 PM [facility] Blood Venous blood specimen / Unknown Venipuncture / Unknown 01/24/2025 9:25 AM EDT 01/24/2025 11:22 AM EDT us Courtney Roger MD LAB BLOOD ORDERABLES Fin al Result [facility] ([facility] [address] [place] [address], documented in this encounter Visit Diagnoses Diagnosis Anemia, unspecified Other disorders of electrolyte and fluid balance, not elsewhere classified documented in this encounter Care Teams Open Die Inspector Relationship Specialty Start Date End Date Marc Longo MD [address] [place] [id number] PCP - General Internal Medicine 07/14/15 documented as of this encounter
[2025-01-26] MEDS: LORazepam 1 MG TABLET PO (16:08)
[2025-01-26] MEDS: LORazepam 1 MG TABLET 2 MG PO (18:10)
--- NOTE | 2025-01-26 18:58 | PHA.MEDREC ---
Addendum entered by Medina Garcia RPh 01/26/25 19:03: Reviewed by [facility] Original Note: Pharmacy Consult ? Medication Reconciliation Pharmacy has reviewed the medication reconciliation done by nursing. Utilized claims to confirm med list.
[2025-01-26] MEDS: Dicyclomine HCl 10 MG CAPSULE PO (19:35)
[2025-01-26] MEDS: busPIRone HCl 5 MG TABLET 15 MG PO (19:35)
[2025-01-26] MEDS: traZODone HCL 100 MG TABLET PO (19:35)
[2025-01-26] MEDS: traZODone HCL 25 MG HALFTAB PO (19:35)
--- NOTE | 2025-01-26 23:28 | MHC.EDTECH ---
this tech assumed care of pt @[id number]
--- NOTE | 2025-01-27 06:11 | PC.NURSE ---
visitor called who t/w brittanives is mother asked when visit hours were and if communion could be presented to the client. t/w resonded when visiting time was and that t/w would ask tree trimming supervisor
[2025-01-27 06:32] VITALS: BP 141/79; PULSE 89; RESP 17; TEMP 36.6; O2SAT 98
--- NOTE | 2025-01-27 07:27 | ECG_ITS ---
Test Reason : check qtc Blood Pressure : */* mmHG Vent. Rate : 88 BPM Atrial Rate : 88 BPM P-R Int : 164 ms QRS Dur : 78 ms QT Int : 382 ms P-R-T Axes : 47 68 44 degrees QTcB Int : 462 ms Normal sinus rhythm Septal infarct , age undetermined Abnormal ECG When compared with ECG of 05-Sep-2017 12:47, No significant change was found Referred By: Kristin Nunez Electronically Signed By: MONICA FLORES
[2025-01-27] MEDS: busPIRone HCl 5 MG TABLET 15 MG PO ×3 (08:39→20:50)
[2025-01-27] MEDS: Dicyclomine HCl 10 MG CAPSULE PO ×2 (08:40→16:16)
[2025-01-27] MEDS: Sertraline HCL 50 MG TABLET 150 MG PO (08:40)
[2025-01-27] MEDS: risperiDONE 0.5 MG TABLET PO (08:40)
[2025-01-27] MEDS: Ferrous Sulfate 324 MG TABLET.DR PO (08:40)
[2025-01-27] MEDS: Omeprazole 40 MG CAPSULE.DR PO ×2 (08:40→16:16)
[2025-01-27] MEDS: amLODIPine Besylate 2.5 MG TABLET 7.5 MG PO (08:51)
[2025-01-27] MEDS: LORazepam 1 MG TABLET 2 MG PO ×2 (11:10→22:31)
[2025-01-27 13:49] VITALS: BP 196/86; PULSE 97; RESP 17; TEMP 36.9; O2SAT 97; BMI 22.0
[2025-01-27] MEDS: hydrOXYzine HCL 25 MG TABLET PO (16:54)
[2025-01-27] MEDS: diphenhydrAMINE HCL 25 MG CAPSULE PO ×2 (17:05→20:50)
--- NOTE | 2025-01-27 18:11 | PC.ADMIT ---
Patient is a 54 year old woman admitted to our unit from the ED POD this afternoon on a CV with a dx of Unspecified Mood Disorder, Unspecified Intellectual Disability and Cannabis Use Disorder, Severe. Patient was BIBA on a sec 12 secondary to passive SI with self harming behaviors and increased depression. Per report, pt had surgery at the beginning of this month for a colostomy, which has been a traumatic experience and difficult for her to cope with. Upon admission assessment, patient is A&Ox4, pleasant and cooperative, though demanding with an irritable edge at times. Patient reports increased depression and anxiety after this recent life change and states I was brought in because I was trying to cut myself with whatever I could find. I don't know how to deal with this bag and I don't want to live with it . Patient reports poor appetite and a hx of insomnia I was taking zoloft but it doesn't help . She denies current suicidal thoughts or plans along with AVH. Tox screen was positive for marijuana I was using it daily before I came here and opiates. She currently lives in a apartment with a roommate but reports having DDS and multi cultural services that help her with medications, shopping etc. Patient appears to ambulate independently with steady gait but reported feeling unsteady along with utilizing a walker prior to coming in and needing one on the unit (walker was given and a PT consult placed), pt also reports needing some minimal assistance with care (reports not knowing how to care for ostomy, wound consult placed). Patient reports her goal for this admission is to heal . Placed on 5 minute safety checks for use of walker.
[2025-01-27 19:25] VITALS: BP 177/74; PULSE 101; RESP 20; TEMP 36.9; O2SAT 98
[2025-01-27] MEDS: traZODone HCL 25 MG HALFTAB PO (20:50)
[2025-01-27] MEDS: traZODone HCL 100 MG TABLET PO (20:51)
[2025-01-27] MEDS: risperiDONE 1 MG TABLET PO (22:32)
--- NOTE | 2025-01-27 22:48 | PM.EVENT ---
Documented by User: Marisela HollandReynoldRigoMILANA 01/27/25 22:54 Event Note Date of Service: 01/27/25 Event Note: Notified by team at 843pm that pt, who is using a walker, has been slamming it against the floor and wall. They also report she has been slapping herself in the face and disruptive in the milieu. BP 177/74 reported 846pm. Tw was driving at the time of the text. Meds reviewed and Risperdal 1 mg and Ativan 2 mg were ordered after chart was reviewed. Meds were not helpful. Team texted at 1044 to report pt was in need of extra intervention. As we had discussed earlier, walker was taken and pt was placed on one to one at that time Time Spent With Patient Time: Total time managing care of this patient today ____ minutes. Documented by User: Alejandro Fragoso MD 01/30/25 21:33 Event Note Date of Service: 01/30/25
--- NOTE | 2025-01-27 22:53 | PC.NURSE ---
Pt was been throwing and slamming the walker in milieu and in room. crucible packer notified and requested walker be taken away and pt be put on 1:1. Pt will be monitored.
--- NOTE | 2025-01-28 | ECG_ITS ---
Test Reason : QTC CHECK Blood Pressure : */* mmHG Vent. Rate : 108 BPM Atrial Rate : 108 BPM P-R Int : 178 ms QRS Dur : 84 ms QT Int : 342 ms P-R-T Axes : 43 80 39 degrees QTcB Int : 458 ms Sinus tachycardia Possible Left atrial enlargement Borderline ECG When compared with ECG of 27-Jan-2025 08:11, Criteria for Septal infarct are no longer Present Referred By: Tano Feliciano Electronically Signed By: MONICA FLORES
[2025-01-28] MEDS: Omeprazole 40 MG CAPSULE.DR PO (06:42)
[2025-01-28 07:46] VITALS: BP 137/71; PULSE 100; RESP 16; TEMP 36.6; O2SAT 97
--- NOTE | 2025-01-28 08:39 | PC.NURSE ---
ostomy bag changed at 0835 by RN. no signs of complications/concerns. patient reports some tenderness during dressing change. declined prn pain meds.
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
[2025-01-28 09:26] LABS: Estimated Average Glucose 103 mg/dL; Hemoglobin A1C 119.3891 umol/L; Hemoglobin A1c % 5.2 % (<6.0); Total Hemoglobin (HGBA1C) 3574.1964 umol/L
[2025-01-28 09:28] LABS: Alanine Aminotransferase 40 U/L (0-31); Albumin Level 4.1 g/dL (3.5-5.0); Alkaline Phosphatase 101 U/L (39-117); Anion Gap 13 (12-20); Aspartate Amino Transferase 28 U/L (5-31); Bilirubin Total 0.3 mg/dL (0.0-1.0); Blood Urea Nitrogen 24 mg/dL (9-16); Calcium 9.5 mg/dL (8.4-10.2); Carbon Dioxide 29 mmol/L (22-29); Chloride 105 mmol/L (96-108); Cholesterol 191 mg/dL (<200); Creatinine Clr Calc Pharmacy 61.2; Estimated Glomerular Filt Rate > 60; Glucose Random 138 mg/dL (60-115); HDL Cholesterol 65 mg/dL (>40); LDL Cholesterol Calculated 115 mg/dL (<100); Potassium 3.5 mmol/L (3.3-5.1); Sodium 143 mmol/L (135-145); Total Protein 6.9 g/dL (6.5-8.0); Triglycerides 57 mg/dL (<150)
[2025-01-28] MEDS: Ferrous Sulfate 324 MG TABLET.DR PO (09:43)
[2025-01-28] MEDS: busPIRone HCl 5 MG TABLET 15 MG PO ×3 (09:43→20:40)
[2025-01-28] MEDS: OLANZapine 5 MG TABLET PO (09:43)
[2025-01-28] MEDS: Sertraline HCL 50 MG TABLET 150 MG PO (09:43)
[2025-01-28] MEDS: Dicyclomine HCl 10 MG CAPSULE PO (09:43)
[2025-01-28 09:44] VITALS: BP 137/71
[2025-01-28] MEDS: amLODIPine Besylate 2.5 MG TABLET 7.5 MG PO (09:44)
[2025-01-28] MEDS: risperiDONE 0.5 MG TABLET PO (09:44)
[2025-01-28] MEDS: LORazepam 1 MG TABLET 2 MG PO ×2 (10:30→13:51)
[2025-01-28] MEDS: LORazepam 1 MG TABLET PO (11:37)
[2025-01-28] MEDS: diphenhydrAMINE HCL 25 MG CAPSULE PO ×2 (11:37→13:51)
[2025-01-28] MEDS: HaloperidoL 5 MG TABLET PO ×2 (11:37→13:54)
[2025-01-28 14:37] VITALS: BP 190/96; PULSE 112; RESP 16; TEMP 36.6; O2SAT 94
[2025-01-28 20:25] VITALS: BP 133/62; PULSE 95; RESP 18; TEMP 36.6; O2SAT 96
[2025-01-28] MEDS: traZODone HCL 25 MG HALFTAB PO (20:41)
[2025-01-28] MEDS: traZODone HCL 100 MG TABLET PO (20:41)
[2025-01-29] MEDS: Omeprazole 40 MG CAPSULE.DR PO ×2 (07:06→16:10)
[2025-01-29 07:52] VITALS: BP 135/62; PULSE 101; RESP 14; TEMP 36.6; O2SAT 97
[2025-01-29 08:57] VITALS: BP 135/62
[2025-01-29] MEDS: amLODIPine Besylate 2.5 MG TABLET 7.5 MG PO (08:57)
[2025-01-29] MEDS: busPIRone HCl 5 MG TABLET 15 MG PO ×3 (08:57→21:47)
[2025-01-29] MEDS: cloNIDine HCL 0.1 MG TABLET PO ×2 (08:57→12:52)
[2025-01-29] MEDS: Sertraline HCL 50 MG TABLET 150 MG PO (08:58)
[2025-01-29] MEDS: Ferrous Sulfate 324 MG TABLET.DR PO (08:58)
[2025-01-29] MEDS: HaloperidoL 1 MG TABLET 2 MG PO ×2 (08:58→16:10)
[2025-01-29] MEDS: Dicyclomine HCl 10 MG CAPSULE PO ×2 (08:58→16:10)
[2025-01-29] MEDS: LORazepam 1 MG TABLET 2 MG PO ×2 (10:11→14:56)
[2025-01-29] MEDS: diphenhydrAMINE HCL 25 MG CAPSULE PO ×2 (10:11→14:56)
[2025-01-29] MEDS: HaloperidoL 5 MG TABLET PO ×2 (10:11→14:56)
[2025-01-29] MEDS: Magnesium Hydrox/Alum Hydrox 30 ML ORAL.SUSP PO (12:50)
[2025-01-29 12:52] VITALS: BP 140/65
[2025-01-29 13:00] VITALS: BP 125/68; PULSE 79; RESP 16; TEMP 36.4; O2SAT 97
--- NOTE | 2025-01-29 13:41 | P.PNPSI_ITS ---
Subjective Subjective Date of Service: 01/29/25 Reason For Visit: crisis Interim History: Patient was agitated yesterday and this morning. She was hitting herself in the head and pulling her hair. She threw milk on the floor because it wasn't chocolate as she asked. She received Haldol PRN with ativan and benadryl with benefit. She reports it helped her. She reports she is upset because of her colostomy bag. She reports she wishes she would . She remains on 1:1. Denies AVH. Review of Systems Review of Systems Appearance: Alert. Oriented 3 No acute distress. Eyes: Pupils equal, round and reactive to light. ENT: Pharynx normal. Neck: Normal inspection. Neck supple. No lymph nodes noted. No crepitus CVS: Normal heart rate and rhythm. Pulses normal. Normal S1 and S2 Respiratory: No respiratory distress. Breath sounds normal. No Wheezing. No rales Abdomen: Soft and nontender. No rigidity. No distention. Skin: Skin warm and dry. Normal skin color. Normal skin turgor. Extremities: No lower extremity edema. No Lacerations. No Rash Neuro: Oriented X 3. No motor deficit. No sensory deficit. Moving all extremities. No slurred speech. CN 2 through 12 grossly intact Psych: calm, cooperative, normal affect Mental Status Exam Mental Status Exam Narrative: Pt is alert and oriented; behavior is guarded, angry, dysregulated, agitated; dressed in hospital attire with unkempt hair, bruising around the eyes; mood is described as nothing helps and affect irritable, intense; eye contact avoidant; Speech is loud and angry; not pressured; considerable psychomotor agitation present; thought process is goal directed; Thought content is on frustration from colostomy, hopelessness; no paranoid ideations expressed; SI statements; no HI expressed; no AVH. Patients insight and judgment impaired Diagnostics Vital Signs (24Hr): Vital Signs - 24 hr 01/28/25 14:37 01/28/25 20:25 01/29/25 07:52 Temperature 97.8 F 97.9 F 97.8 F Pulse Rate 112 H 95 101 H Respiratory Rate 16 18 14 Blood Pressure 190/96 H 133/62 135/62 Pulse Oximetry 94 96 97 Oxygen Delivery Method Room Air Room Air Room Air 01/29/25 08:57 01/29/25 08:57 01/29/25 12:52 Temperature Pulse Rate Respiratory Rate Blood Pressure 135/62 135/62 140/65 H Pulse Oximetry Oxygen Delivery Method 01/29/25 13:00 Temperature 97.5 F Pulse Rate 79 Respiratory Rate 16 Blood Pressure 125/68 Pulse Oximetry 97 Oxygen Delivery Method Room Air BMI result Body Mass Index 22.0 Labs 01/26/25 11:29 01/28/25 08:07 Labs: Laboratory Results - last 48 hr 01/28/25 08:07 Sodium 143 Potassium 3.5 Chloride 105 Carbon Dioxide 29 Anion Gap 13 BUN 24 H Creatinine 0.84 Estim Creat Clear Calc 61.2 Estimated GFR > 60 Random Glucose 138 H Estimat Average Glucose 103 Hemoglobin A1c % 5.2 Calcium 9.5 Total Bilirubin 0.3 AST 28 ALT 40 H Alkaline Phosphatase 101 Total Protein 6.9 Albumin 4.1 Triglycerides 57 Cholesterol 191 LDL Cholesterol, Calc 115 H HDL Cholesterol 65 Medications Medications Current Medications Acetaminophen (Acetaminophen 325 Mg Tablet) 650 mg PO Q6H PRN PRN Reason: Headache/Pain, Scale 1-10 Al Hydroxide/Mg Hydroxide (Magnesium Hydrox/Alum Hydrox 30 Ml Oral.Susp) 30 ml PO Q6H PRN PRN Reason: Heartburn/Nausea Last Admin: 01/29/25 12:50 Dose: 30 ml Albuterol Sulfate (Albuterol Sulfate 90 Mcg 8 Gm Inhaler) 2 puff INHALE Q4H PRN PRN Reason: Wheezing Amlodipine Besylate (Amlodipine Besylate 2.5 Mg Tablet) 7.5 mg PO DAILY [facility]; Protocol Last Admin: 01/29/25 08:57 Dose: 7.5 mg Buspirone HCl (Buspirone Hcl 5 Mg Tablet) 15 mg PO TID [facility] Last Admin: 01/29/25 08:57 Dose: 15 mg Clonidine HCl (Clonidine Hcl 0.1 Mg Tablet) 0.1 mg PO BID@0900,1300 [facility]; Protocol Last Admin: 01/29/25 12:52 Dose: 0.1 mg Dicyclomine HCl (Dicyclomine Hcl 10 Mg Capsule) 10 mg PO BIDWM [facility] Last Admin: 01/29/25 08:58 Dose: 10 mg Diphenhydramine HCl (Diphenhydramine Hcl 25 Mg Capsule) 25 mg PO Q4H PRN PRN Reason: itchiness Last Admin: 01/28/25 13:51 Dose: 25 mg Diphenhydramine HCl (Diphenhydramine Hcl 25 Mg Capsule) 25 mg PO Q4H PRN PRN Reason: agitation Last Admin: 01/29/25 10:11 Dose: 25 mg Ferrous Sulfate (Ferrous Sulfate 324 Mg Tablet.) 324 mg PO DAILY [facility] Last Admin: 01/29/25 08:58 Dose: 324 mg Haloperidol (Haloperidol 1 Mg Tablet) 2 mg PO BID@0900,1700 [facility] Last Admin: 01/29/25 08:58 Dose: 2 mg Haloperidol (Haloperidol 5 Mg Tablet) 5 mg PO Q4H PRN PRN Reason: agitation Last Admin: 01/29/25 10:11 Dose: 5 mg Hydroxyzine HCl (Hydroxyzine Hcl 25 Mg Tablet) 25 mg PO Q6H PRN PRN Reason: mild anxiety Last Admin: 01/27/25 16:54 Dose: 25 mg Lorazepam (Lorazepam 1 Mg Tablet) 2 mg PO Q4H PRN PRN Reason: agitation Last Admin: 01/29/25 10:11 Dose: 2 mg Magnesium Hydroxide (Milk Of Magnesia 30 Ml Oral.Susp) 30 ml PO DAILY PRN PRN Reason: Constipation Omeprazole (Omeprazole 40 Mg Capsule.) 40 mg PO BID@0630,1630 [facility] Last Admin: 01/29/25 07:06 Dose: 40 mg Sertraline HCl (Sertraline Hcl 50 Mg Tablet) 150 mg PO DAILY [facility] Last Admin: 01/29/25 08:58 Dose: 150 mg Trazodone HCl (Trazodone Hcl 25 Mg Halftab) 25 mg PO BEDTIME [facility] Last Admin: 01/28/25 20:41 Dose: 25 mg Trazodone HCl (Trazodone Hcl 100 Mg Tablet) 100 mg PO BEDTIME [facility] Last Admin: 01/28/25 20:41 Dose: 100 mg Trazodone HCl (Trazodone Hcl 50 Mg Tablet) 50 mg PO BEDTIME MRX1 PRN PRN Reason: Insomnia Allergies Allergies Allergy/AdvReac Type Severity Reaction Status Date / Time Opioids - Morphine Analogues Allergy Severe NAUSEA, Unverified 01/26/25 11:05 [OPIOIDS - MORPHINE HIVES, ANALOGUES] STOPS BREATHING Assessment & Plan Assessment & Plan (1) MDD (major depressive disorder), recurrent severe, without psychosis: Status: Acute Code(s): F33.2 - Major depressive disorder, recurrent severe without psychotic features (2) Acute adjustment disorder with mixed disturbance of emotions and conduct: Status: Acute Code(s): F43.25 - Adjustment disorder with mixed disturbance of emotions and conduct (3) PTSD (post-traumatic stress disorder): Status: Acute Code(s): F43.10 - Post-traumatic stress disorder, unspecified (4) Intellectual disability: Status: Acute Code(s): F79 - Unspecified intellectual disabilities Plan HPI: Patient is a 54-year-old female with past history of intellectual disability (with DDS services), PTSD, cannabis use disorder, emotional reactivity, prolapsed rectum and now s/p colostomy (on 01/14) who presents for increased anger and self-harm. Patient irritable and a limited historian; she does not want to talk to scientific writer, saying nothing will help. She did however express that getting the colostomy bag was a significant trigger for her dysregulation and said to staff I was brought in because I was trying to cut myself with whatever I could find. I don't know how to deal with this bag and I don't want to live with it . Information combined from patient, chart and her mother's report. Mother reports that patient has become increasingly unhappy since this past October, intermittently hitting herself in the face. Some likely contributions to her increased dysregulation is that her live-in boyfriend of 6 years has become increasingly distant and condescending; also patient has a VNA who used to come 3 days a week but for the past several months has only been coming every other week though mother thinks patient still mostly takes her medications; this past November patient superficially cut her stomach, was assessed by crisis but did not going patient. Over the past weeks patient has become increasingly emotional, irritable and engaging in intermittent self-harm by hitting herself. About a week and a half ago, patient received a colostomy for a chronically prolapsed rectum; she went to rehab but while there, had agitated behaviors and so was sent to the emergency room for assessment. Patient says that she wants to , does not want to live though has not talked about any actual intent or plans. While talking with scientific writer, patient hit a cup of milk which floor over the table on the wall, swore and yelled at scientific writer and stormed out; she would intermittently return but would continue yelling angrily at scientific writer and her mother. Patient also repeatedly demanding to be given a walker; patient observed to be fully capable of walking without assistance, even rapidly walking the halls; her mother says she does not use a walker at home and has no need of 1. -excessive, daily cannabis use; no other drugs or alcohol; -no history of manic type behaviors or episodes; denies AVH -Throughout the day patient dysregulated; she started hitting herself in the face and even pulling out her hair yelling and screaming. She was willing to take PRNs and eventually seemed to benefit from Haldol Formulation/clinical reasoning: Will diagnosed with MDD with acute adjustment disorder superimposed Patient seems to be depressed; she has difficult time expressing her feelings with words and is prone to emotional reactivity and irritability, as well as self-harm which has been increasing over months. Patient reports and mother concurs that getting the colostomy bag has felt demoralizing to patient; her mother thinks that patient's long time boyfriend has been backing off of the relationship as patient's health has declined (which included losing her teeth about a year and a half ago and now having a colostomy bag); mother thinks patient is worried about losing this relationship. -will discontinue Risperdal which was started this admission; instead will order Haldol 2.5 mg b.i.d. since that was effective in controlling patient's extreme dysregulation on the unit. -patient was hypertensive initially but that may very well be due to her agitated state; made vitals t.i.d. to monitor -patient's mother is healthcare proxy; will consider whether to invoke healthcare proxy Plan: CV Q 15 minute checks Start Haldol 2.5 mg b.i.d. for agitation (DC Risperdal which was started in the ED) Added clonidine due to hypertension and high anxiety Continue trazodone 125 mg q.h.s. continue Zoloft 150 mg daily;patient says it does not help but it certainly could be partially helpful continue iron sulfate continue buspirone 15 mg t.i.d. continue amlodipine 7.5 mg daily -ordered wound consult to assess colostomy area Continue to gather collateral 01/29: Continue current management and treatment plan. Remains intermittently agitated. Low frustration tolerance. Reason for continued inpatient stay Substantial Risk for: harm to self, inability to function, rapid decompensation and med/psych decompensation Time Spent With Patient Time: Total time managing care of this patient today ____ minutes.
[2025-01-29] MEDS: Acetaminophen 325 MG TABLET 650 MG PO (14:27)
[2025-01-29] MEDS: hydrOXYzine HCL 25 MG TABLET PO (14:56)
[2025-01-29] MEDS: Ibuprofen 400 MG TABLET PO (16:10)
[2025-01-29 19:55] VITALS: RESP 16
[2025-01-29 21:19] VITALS: BP 109/50; PULSE 78; RESP 18; TEMP 36.3; O2SAT 96
[2025-01-29] MEDS: traZODone HCL 100 MG TABLET PO (21:47)
[2025-01-29] MEDS: traZODone HCL 25 MG HALFTAB PO (21:51)
[2025-01-30] MEDS: Omeprazole 40 MG CAPSULE.DR PO ×2 (06:18→16:45)
[2025-01-30] MEDS: Magnesium Hydrox/Alum Hydrox 30 ML ORAL.SUSP PO ×2 (06:59→13:26)
[2025-01-30 07:28] VITALS: BP 132/81; PULSE 87; RESP 16; TEMP 36.4; O2SAT 98
[2025-01-30 08:29] VITALS: BP 132/81
[2025-01-30] MEDS: amLODIPine Besylate 2.5 MG TABLET 7.5 MG PO (08:29)
[2025-01-30 08:30] VITALS: BP 132/81
[2025-01-30] MEDS: cloNIDine HCL 0.1 MG TABLET PO ×2 (08:30→13:26)
[2025-01-30] MEDS: Dicyclomine HCl 10 MG CAPSULE PO ×2 (08:30→16:45)
[2025-01-30] MEDS: HaloperidoL 1 MG TABLET 2 MG PO ×2 (08:30→16:45)
[2025-01-30] MEDS: Acetaminophen 325 MG TABLET 650 MG PO ×3 (08:30→21:18)
[2025-01-30] MEDS: Ferrous Sulfate 324 MG TABLET.DR PO (08:31)
[2025-01-30] MEDS: Sertraline HCL 50 MG TABLET 150 MG PO (08:31)
[2025-01-30] MEDS: busPIRone HCl 5 MG TABLET 15 MG PO ×3 (08:31→21:02)
[2025-01-30] MEDS: LORazepam 1 MG TABLET 2 MG PO ×3 (10:23→21:03)
[2025-01-30] MEDS: HaloperidoL 5 MG TABLET PO ×3 (10:23→21:04)
[2025-01-30] MEDS: diphenhydrAMINE HCL 25 MG CAPSULE PO ×3 (10:23→21:03)
[2025-01-30] MEDS: hydrOXYzine HCL 25 MG TABLET PO (11:40)
[2025-01-30 13:26] VITALS: BP 121/60
--- NOTE | 2025-01-30 14:27 | P.PNPSI_ITS ---
Subjective Subjective Date of Service: 01/30/25 Reason For Visit: crisis Interim History: Patient was agitated this morning after a visit with her mother. She was hitting her face. Remains labile and irritable. On 1:1 for safety. Frustration tolerance is extremely limited. Precipitants include not having chocolate ice cream for example. When approached and when asked how she feels she turns away and says I don't care anymore . Endorses passive wish but no active intent. Sleep is good. Receives PRN's with some effect. Denies AVH. Review of Systems Review of Systems Appearance: Alert. Oriented 3 No acute distress. Eyes: Pupils equal, round and reactive to light. ENT: Pharynx normal. Neck: Normal inspection. Neck supple. No lymph nodes noted. No crepitus CVS: Normal heart rate and rhythm. Pulses normal. Normal S1 and S2 Respiratory: No respiratory distress. Breath sounds normal. No Wheezing. No rales Abdomen: Soft and nontender. No rigidity. No distention. Skin: Skin warm and dry. Normal skin color. Normal skin turgor. Extremities: No lower extremity edema. No Lacerations. No Rash Neuro: Oriented X 3. No motor deficit. No sensory deficit. Moving all extremities. No slurred speech. CN 2 through 12 grossly intact Psych: calm, cooperative, normal affect Mental Status Exam Mental Status Exam Narrative: Pt is alert and oriented; behavior is guarded, angry, dysregulated, agitated; dressed in hospital attire with unkempt hair, bruising around the eyes; mood is described as nothing helps and affect irritable, intense; eye contact avoidant; Speech is loud and angry; not pressured; considerable psychomotor agitation present; thought process is goal directed; Thought content is on frustration from colostomy, hopelessness; no paranoid ideations expressed; SI statements; no HI expressed; no AVH. Patients insight and judgment impaired Diagnostics Vital Signs (24Hr): Vital Signs - 24 hr 01/29/25 19:55 01/29/25 21:19 01/30/25 07:28 Temperature 97.3 F 97.5 F Pulse Rate 78 87 Respiratory Rate 16 18 16 Blood Pressure 109/50 L 132/81 Pulse Oximetry 96 98 Oxygen Delivery Method Room Air Room Air 01/30/25 08:29 01/30/25 08:30 01/30/25 13:26 Temperature Pulse Rate Respiratory Rate Blood Pressure 132/81 132/81 121/60 Pulse Oximetry Oxygen Delivery Method BMI result Body Mass Index 22.0 Labs 01/26/25 11:29 01/28/25 08:07 Medications Medications Current Medications Acetaminophen (Acetaminophen 325 Mg Tablet) 650 mg PO Q6H PRN PRN Reason: Headache/Pain, Scale 1-10 Last Admin: 01/30/25 08:30 Dose: 650 mg Al Hydroxide/Mg Hydroxide (Magnesium Hydrox/Alum Hydrox 30 Ml Oral.Susp) 30 ml PO Q6H PRN PRN Reason: Heartburn/Nausea Last Admin: 01/30/25 13:26 Dose: 30 ml Albuterol Sulfate (Albuterol Sulfate 90 Mcg 8 Gm Inhaler) 2 puff INHALE Q4H PRN PRN Reason: Wheezing Amlodipine Besylate (Amlodipine Besylate 2.5 Mg Tablet) 7.5 mg PO DAILY [facility]; Protocol Last Admin: 01/30/25 08:29 Dose: 7.5 mg Buspirone HCl (Buspirone Hcl 5 Mg Tablet) 15 mg PO TID [facility] Last Admin: 01/30/25 08:31 Dose: 15 mg Clonidine HCl (Clonidine Hcl 0.1 Mg Tablet) 0.1 mg PO BID@0900,1300 [facility]; Protocol Last Admin: 01/30/25 13:26 Dose: 0.1 mg Dicyclomine HCl (Dicyclomine Hcl 10 Mg Capsule) 10 mg PO BIDWM [facility] Last Admin: 01/30/25 08:30 Dose: 10 mg Diphenhydramine HCl (Diphenhydramine Hcl 25 Mg Capsule) 25 mg PO Q4H PRN PRN Reason: itchiness Last Admin: 01/28/25 13:51 Dose: 25 mg Diphenhydramine HCl (Diphenhydramine Hcl 25 Mg Capsule) 25 mg PO Q4H PRN PRN Reason: agitation Last Admin: 01/30/25 10:23 Dose: 25 mg Ferrous Sulfate (Ferrous Sulfate 324 Mg Tablet.Dr) 324 mg PO DAILY [facility] Last Admin: 01/30/25 08:31 Dose: 324 mg Haloperidol (Haloperidol 1 Mg Tablet) 2 mg PO BID@0900,1700 [facility] Last Admin: 01/30/25 08:30 Dose: 2 mg Haloperidol (Haloperidol 5 Mg Tablet) 5 mg PO Q4H PRN PRN Reason: agitation Last Admin: 01/30/25 10:23 Dose: 5 mg Hydroxyzine HCl (Hydroxyzine Hcl 25 Mg Tablet) 25 mg PO Q6H PRN PRN Reason: mild anxiety Last Admin: 01/30/25 11:40 Dose: 25 mg Ibuprofen (Ibuprofen 400 Mg Tablet) 400 mg PO Q6H PRN PRN Reason: Pain, Moderate(Pain Scale 4-6) Last Admin: 01/29/25 16:10 Dose: 400 mg Lorazepam (Lorazepam 1 Mg Tablet) 2 mg PO Q4H PRN PRN Reason: agitation Last Admin: 01/30/25 10:23 Dose: 2 mg Magnesium Hydroxide (Milk Of Magnesia 30 Ml Oral.Susp) 30 ml PO DAILY PRN PRN Reason: Constipation Omeprazole (Omeprazole 40 Mg Capsule.Dr) 40 mg PO BID@0630,1630 [facility] Last Admin: 01/30/25 06:18 Dose: 40 mg Sertraline HCl (Sertraline Hcl 50 Mg Tablet) 150 mg PO DAILY [facility] Last Admin: 01/30/25 08:31 Dose: 150 mg Trazodone HCl (Trazodone Hcl 25 Mg Halftab) 25 mg PO BEDTIME [facility] Last Admin: 01/29/25 21:51 Dose: 25 mg Trazodone HCl (Trazodone Hcl 100 Mg Tablet) 100 mg PO BEDTIME [facility] Last Admin: 01/29/25 21:47 Dose: 100 mg Trazodone HCl (Trazodone Hcl 50 Mg Tablet) 50 mg PO BEDTIME MRX1 PRN PRN Reason: Insomnia Allergies Allergies Allergy/AdvReac Type Severity Reaction Status Date / Time Opioids - Morphine Analogues Allergy Severe NAUSEA, Unverified 01/26/25 11:05 [OPIOIDS - MORPHINE HIVES, ANALOGUES] STOPS BREATHING Assessment & Plan Assessment & Plan (1) MDD (major depressive disorder), recurrent severe, without psychosis: Status: Acute Code(s): F33.2 - Major depressive disorder, recurrent severe without psychotic features (2) Acute adjustment disorder with mixed disturbance of emotions and conduct: Status: Acute Code(s): F43.25 - Adjustment disorder with mixed disturbance of emotions and conduct (3) PTSD (post-traumatic stress disorder): Status: Acute Code(s): F43.10 - Post-traumatic stress disorder, unspecified (4) Intellectual disability: Status: Acute Code(s): F79 - Unspecified intellectual disabilities Plan HPI: Patient is a 54-year-old female with past history of intellectual disability (with DDS services), PTSD, cannabis use disorder, emotional reactivity, prolapsed rectum and now s/p colostomy (on 01/14) who presents for increased anger and self-harm. Patient irritable and a limited historian; she does not want to talk to science writer, saying nothing will help. She did however express that getting the colostomy bag was a significant trigger for her dysregulation and said to staff I was brought in because I was trying to cut myself with whatever I could find. I don't know how to deal with this bag and I don't want to live with it . Information combined from patient, chart and her mother's report. Mother reports that patient has become increasingly unhappy since this past October, intermittently hitting herself in the face. Some likely contributions to her increased dysregulation is that her live-in boyfriend of 6 years has become increasingly distant and condescending; also patient has a VNA who used to come 3 days a week but for the past several months has only been coming every other week though mother thinks patient still mostly takes her medications; this past November patient superficially cut her stomach, was assessed by crisis but did not going patient. Over the past weeks patient has become increasingly emotional, irritable and engaging in intermittent self-harm by hitting herself. About a week and a half ago, patient received a colostomy for a chronically prolapsed rectum; she went to rehab but while there, had agitated behaviors and so was sent to the emergency room for assessment. Patient says that she wants to , does not want to live though has not talked about any actual intent or plans. While talking with science writer, patient hit a cup of milk which floor over the table on the wall, swore and yelled at science writer and stormed out; she would intermittently return but would continue yelling angrily at science writer and her mother. Patient also repeatedly demanding to be given a walker; patient observed to be fully capable of walking without assistance, even rapidly walking the halls; her mother says she does not use a walker at home and has no need of 1. -excessive, daily cannabis use; no other drugs or alcohol; -no history of manic type behaviors or episodes; denies AVH -Throughout the day patient dysregulated; she started hitting herself in the face and even pulling out her hair yelling and screaming. She was willing to take PRNs and eventually seemed to benefit from Haldol Formulation/clinical reasoning: Will diagnosed with MDD with acute adjustment disorder superimposed Patient seems to be depressed; she has difficult time expressing her feelings with words and is prone to emotional reactivity and irritability, as well as self-harm which has been increasing over months. Patient reports and mother concurs that getting the colostomy bag has felt demoralizing to patient; her mother thinks that patient's long time boyfriend has been backing off of the relationship as patient's health has declined (which included losing her teeth about a year and a half ago and now having a colostomy bag); mother thinks patient is worried about losing this relationship. -will discontinue Risperdal which was started this admission; instead will order Haldol 2.5 mg b.i.d. since that was effective in controlling patient's extreme dysregulation on the unit. -patient was hypertensive initially but that may very well be due to her agitated state; made vitals t.i.d. to monitor -patient's mother is healthcare proxy; will consider whether to invoke healthcare proxy Plan: CV Q 15 minute checks Start Haldol 2.5 mg b.i.d. for agitation (DC Risperdal which was started in the ED) Added clonidine due to hypertension and high anxiety Continue trazodone 125 mg q.h.s. continue Zoloft 150 mg daily;patient says it does not help but it certainly could be partially helpful continue iron sulfate continue buspirone 15 mg t.i.d. continue amlodipine 7.5 mg daily -ordered wound consult to assess colostomy area Continue to gather collateral 01/29: Continue current management and treatment plan. Remains intermittently agitated. Low frustration tolerance. 01/30: continue current management and treatment plan. Reason for continued inpatient stay Substantial Risk for: harm to self, inability to function, rapid decompensation and med/psych decompensation Time Spent With Patient Time: Total time managing care of this patient today ____ minutes.
[2025-01-30] MEDS: Ibuprofen 400 MG TABLET PO (15:44)
[2025-01-30 20:10] VITALS: BP 130/62; PULSE 87; RESP 16; TEMP 36.3; O2SAT 95
[2025-01-30] MEDS: traZODone HCL 100 MG TABLET PO (21:04)
[2025-01-30] MEDS: traZODone HCL 25 MG HALFTAB PO (21:05)
[2025-01-31] MEDS: Omeprazole 40 MG CAPSULE.DR PO ×2 (06:43→15:50)
[2025-01-31 07:30] VITALS: BP 133/60; PULSE 98; RESP 18; TEMP 36.4; O2SAT 97
[2025-01-31] MEDS: Dicyclomine HCl 10 MG CAPSULE PO ×3 (08:29→20:13)
[2025-01-31] MEDS: amLODIPine Besylate 2.5 MG TABLET 7.5 MG PO (08:29)
[2025-01-31] MEDS: busPIRone HCl 5 MG TABLET 15 MG PO ×3 (08:29→20:15)
[2025-01-31 08:30] VITALS: BP 133/60
[2025-01-31] MEDS: HaloperidoL 1 MG TABLET 2 MG PO ×2 (08:30→16:50)
[2025-01-31] MEDS: cloNIDine HCL 0.1 MG TABLET PO ×2 (08:30→13:42)
[2025-01-31] MEDS: Ferrous Sulfate 324 MG TABLET.DR PO (08:30)
[2025-01-31] MEDS: Sertraline HCL 50 MG TABLET 150 MG PO (08:30)
--- NOTE | 2025-01-31 13:32 | HO.PSYCHPN ---
Subjective Subjective Date of Service: 01/31/25 Reason For Visit: crisis Interim History: calm, cooperative. c/o some cramping around her ostomy. endorsing SI/SIBI but saying, i don't want to do it. unable to say what needs to change in order for her to be able to go home. per staff, angry, labile. taking meds. slaps herself in the face when upset, slams bedroom door. no SI/HI eves. slept 8 hours. ate 12 ice creams. dysregulated after visits from mother. Mental Status Exam Mental Status Exam Narrative: adequately dressed and groomed. cooperative. no PMA/PMR. speech nml rate amount loudness tone latency. thoughts linear and logical. affect constricted, normo-intense, non-labile. mood not good. +SI/SIBI, but i don't want to do it. denies HI/AVH. Diagnostics Vital Signs (24Hr): Vital Signs - 24 hr 01/30/25 20:10 01/31/25 07:30 01/31/25 08:30 Temperature 97.3 F 97.5 F Pulse Rate 87 98 Respiratory Rate 16 18 Blood Pressure 130/62 133/60 133/60 Pulse Oximetry 95 97 Oxygen Delivery Method Room Air Room Air BMI result Body Mass Index 22.0 Labs 01/26/25 11:29 01/28/25 08:07 Medications Medications Current Medications Acetaminophen (Acetaminophen 325 Mg Tablet) 650 mg PO Q6H PRN PRN Reason: Headache/Pain, Scale 1-10 Last Admin: 01/30/25 21:18 Dose: 650 mg Al Hydroxide/Mg Hydroxide (Magnesium Hydrox/Alum Hydrox 30 Ml Oral.Susp) 30 ml PO Q6H PRN PRN Reason: Heartburn/Nausea Last Admin: 01/30/25 13:26 Dose: 30 ml Albuterol Sulfate (Albuterol Sulfate 90 Mcg 8 Gm Inhaler) 2 puff INHALE Q4H PRN PRN Reason: Wheezing Amlodipine Besylate (Amlodipine Besylate 2.5 Mg Tablet) 7.5 mg PO DAILY [facility]; Protocol Last Admin: 01/31/25 08:29 Dose: 7.5 mg Buspirone HCl (Buspirone Hcl 5 Mg Tablet) 15 mg PO TID [facility] Last Admin: 01/31/25 08:29 Dose: 15 mg Clonidine HCl (Clonidine Hcl 0.1 Mg Tablet) 0.1 mg PO BID@0900,1300 [facility]; Protocol Last Admin: 01/31/25 08:30 Dose: 0.1 mg Dicyclomine HCl (Dicyclomine Hcl 10 Mg Capsule) 10 mg PO BIDWM [facility] Last Admin: 01/31/25 08:29 Dose: 10 mg Diphenhydramine HCl (Diphenhydramine Hcl 25 Mg Capsule) 25 mg PO Q4H PRN PRN Reason: itchiness Last Admin: 01/30/25 21:03 Dose: 25 mg Diphenhydramine HCl (Diphenhydramine Hcl 25 Mg Capsule) 25 mg PO Q4H PRN PRN Reason: agitation Last Admin: 01/30/25 14:53 Dose: 25 mg Ferrous Sulfate (Ferrous Sulfate 324 Mg Tablet.Dr) 324 mg PO DAILY [facility] Last Admin: 01/31/25 08:30 Dose: 324 mg Haloperidol (Haloperidol 1 Mg Tablet) 2 mg PO BID@0900,1700 [facility] Last Admin: 01/31/25 08:30 Dose: 2 mg Haloperidol (Haloperidol 5 Mg Tablet) 5 mg PO Q4H PRN PRN Reason: agitation Last Admin: 01/30/25 21:04 Dose: 5 mg Hydroxyzine HCl (Hydroxyzine Hcl 25 Mg Tablet) 25 mg PO Q6H PRN PRN Reason: mild anxiety Last Admin: 01/30/25 11:40 Dose: 25 mg Ibuprofen (Ibuprofen 400 Mg Tablet) 400 mg PO Q6H PRN PRN Reason: Pain, Moderate(Pain Scale 4-6) Last Admin: 01/30/25 15:44 Dose: 400 mg Lactase (Lactase Tablet) 2 tab PO TIDWM [facility] Lorazepam (Lorazepam 1 Mg Tablet) 2 mg PO Q4H PRN PRN Reason: agitation Last Admin: 01/30/25 21:03 Dose: 2 mg Magnesium Hydroxide (Milk Of Magnesia 30 Ml Oral.Susp) 30 ml PO DAILY PRN PRN Reason: Constipation Omeprazole (Omeprazole 40 Mg Capsule.Dr) 40 mg PO BID@0630,1630 [facility] Last Admin: 01/31/25 06:43 Dose: 40 mg Sertraline HCl (Sertraline Hcl 50 Mg Tablet) 150 mg PO DAILY [facility] Last Admin: 01/31/25 08:30 Dose: 150 mg Trazodone HCl (Trazodone Hcl 25 Mg Halftab) 25 mg PO BEDTIME [facility] Last Admin: 01/30/25 21:05 Dose: 25 mg Trazodone HCl (Trazodone Hcl 100 Mg Tablet) 100 mg PO BEDTIME [facility] Last Admin: 01/30/25 21:04 Dose: 100 mg Trazodone HCl (Trazodone Hcl 50 Mg Tablet) 50 mg PO BEDTIME MRX1 PRN PRN Reason: Insomnia Allergies Allergies Allergy/AdvReac Type Severity Reaction Status Date / Time Opioids - Morphine Analogues Allergy Severe NAUSEA, Unverified 01/26/25 11:05 [OPIOIDS - MORPHINE HIVES, ANALOGUES] STOPS BREATHING Assessment & Plan Assessment & Plan (1) MDD (major depressive disorder), recurrent severe, without psychosis: Status: Acute Code(s): F33.2 - Major depressive disorder, recurrent severe without psychotic features (2) Acute adjustment disorder with mixed disturbance of emotions and conduct: Status: Acute Code(s): F43.25 - Adjustment disorder with mixed disturbance of emotions and conduct (3) PTSD (post-traumatic stress disorder): Status: Acute Code(s): F43.10 - Post-traumatic stress disorder, unspecified (4) Intellectual disability: Status: Acute Code(s): F79 - Unspecified intellectual disabilities Plan Formulation/clinical reasoning: Will diagnosed with MDD with acute adjustment disorder superimposed Patient seems to be depressed; she has difficult time expressing her feelings with words and is prone to emotional reactivity and irritability, as well as self-harm which has been increasing over months. Patient reports and mother concurs that getting the colostomy bag has felt demoralizing to patient; her mother thinks that patient's long time boyfriend has been backing off of the relationship as patient's health has declined (which included losing her teeth about a year and a half ago and now having a colostomy bag); mother thinks patient is worried about losing this relationship. -will discontinue Risperdal which was started this admission; instead will order Haldol 2.5 mg b.i.d. since that was effective in controlling patient's extreme dysregulation on the unit. -patient was hypertensive initially but that may very well be due to her agitated state; made vitals t.i.d. to monitor -patient's mother is healthcare proxy; will consider whether to invoke healthcare proxy Plan: CV Q 15 minute checks Start Haldol 2.5 mg b.i.d. for agitation (DC Risperdal which was started in the ED) Added clonidine due to hypertension and high anxiety Continue trazodone 125 mg q.h.s. continue Zoloft 150 mg daily;patient says it does not help but it certainly could be partially helpful continue iron sulfate continue buspirone 15 mg t.i.d. continue amlodipine 7.5 mg daily -ordered wound consult to assess colostomy area Continue to gather collateral 01/29: Continue current management and treatment plan. Remains intermittently agitated. Low frustration tolerance. 01/30: continue current management and treatment plan. 01/31: no agitation last night. restrict mother's visits to unit due to pattern of agitation and self-harm after her visits. endorsing SI/SIBI today. add dicyclomine for abd cramping. continue current mgmt otherwise. Reason for continued inpatient stay Substantial Risk for: harm to self and inability to function Time Spent With Patient Time: Total time managing care of this patient today __25__ minutes.
[2025-01-31 13:42] VITALS: BP 128/60
[2025-01-31] MEDS: HaloperidoL 5 MG TABLET PO ×2 (14:16→20:14)
[2025-01-31] MEDS: LORazepam 1 MG TABLET 2 MG PO ×2 (14:16→20:14)
[2025-01-31] MEDS: diphenhydrAMINE HCL 25 MG CAPSULE PO ×2 (14:18→20:15)
[2025-01-31] MEDS: Lactase TABLET 2 TAB PO (16:50)
[2025-01-31 18:00] VITALS: BP 134/60; PULSE 92; RESP 16; TEMP 37.6; O2SAT 95
[2025-01-31] MEDS: Ibuprofen 400 MG TABLET PO (18:08)
[2025-01-31] MEDS: traZODone HCL 25 MG HALFTAB PO (20:14)
[2025-01-31] MEDS: Acetaminophen 325 MG TABLET 650 MG PO (20:15)
[2025-01-31] MEDS: traZODone HCL 100 MG TABLET PO (20:15)
[2025-02-01 06:00] VITALS: BP 123/56; PULSE 72; RESP 16; TEMP 36.9; O2SAT 98
[2025-02-01] MEDS: Omeprazole 40 MG CAPSULE.DR PO ×2 (06:30→17:02)
[2025-02-01] MEDS: Dicyclomine HCl 10 MG CAPSULE PO ×4 (07:57→21:12)
[2025-02-01] MEDS: Lactase TABLET 2 TAB PO ×3 (08:22→17:02)
[2025-02-01] MEDS: Sertraline HCL 50 MG TABLET 150 MG PO (08:23)
[2025-02-01] MEDS: busPIRone HCl 5 MG TABLET 15 MG PO ×3 (08:23→21:12)
[2025-02-01] MEDS: HaloperidoL 1 MG TABLET 2 MG PO ×2 (08:23→17:02)
[2025-02-01] MEDS: Ferrous Sulfate 324 MG TABLET.DR PO (08:23)
[2025-02-01 08:24] VITALS: BP 127/66
[2025-02-01] MEDS: cloNIDine HCL 0.1 MG TABLET PO ×2 (08:24→13:00)
[2025-02-01] MEDS: amLODIPine Besylate 2.5 MG TABLET 7.5 MG PO (08:24)
[2025-02-01] MEDS: LORazepam 1 MG TABLET 2 MG PO ×2 (08:59→13:01)
[2025-02-01] MEDS: diphenhydrAMINE HCL 25 MG CAPSULE PO ×2 (08:59→13:01)
[2025-02-01] MEDS: HaloperidoL 5 MG TABLET PO ×2 (08:59→13:01)
[2025-02-01 13:00] VITALS: BP 142/64
--- NOTE | 2025-02-01 13:48 | HO.PSYCHPN ---
Subjective Subjective Date of Service: 02/01/25 Reason For Visit: crisis Interim History: labile, reactive. crying, raising voice against MD. then conciliatory and shaking MD's hand and saying she will work with MD, after encouragement from 1:1 staff. per staff, hitting self in the face if refused ice cream or milk. irritable. c/o dep/anx. labile. taking meds. not attending groups. head-banging and pulling own hair when frustrated. benadryl/haldol/ativan combo helpful. more pleasant eves. no SI/HI. slept 8 hours. Mental Status Exam Mental Status Exam Narrative: adequately dressed and groomed. variably cooperative. some PMA of yelling. speech variable, from nml rate amount loudness tone latency to yelling at MD. thoughts linear and logical. affect constricted, hyper-intense, labile. mood not assessed. no SI/SIBI/HI/AVH expressed. Diagnostics Vital Signs (24Hr): Vital Signs - 24 hr 01/31/25 18:00 02/01/25 06:00 02/01/25 08:24 Temperature 99.6 F 98.4 F Pulse Rate 92 72 Respiratory Rate 16 16 Blood Pressure 134/60 123/56 L 127/66 Pulse Oximetry 95 98 Oxygen Delivery Method Room Air Room Air 02/01/25 08:24 02/01/25 13:00 Temperature Pulse Rate Respiratory Rate Blood Pressure 127/66 142/64 H Pulse Oximetry Oxygen Delivery Method BMI result Body Mass Index 22.0 Labs 01/26/25 11:29 01/28/25 08:07 Medications Medications Current Medications Acetaminophen (Acetaminophen 325 Mg Tablet) 650 mg PO Q6H PRN PRN Reason: Headache/Pain, Scale 1-10 Last Admin: 01/31/25 20:15 Dose: 650 mg Al Hydroxide/Mg Hydroxide (Magnesium Hydrox/Alum Hydrox 30 Ml Oral.Susp) 30 ml PO Q6H PRN PRN Reason: Heartburn/Nausea Last Admin: 01/30/25 13:26 Dose: 30 ml Albuterol Sulfate (Albuterol Sulfate 90 Mcg 8 Gm Inhaler) 2 puff INHALE Q4H PRN PRN Reason: Wheezing Amlodipine Besylate (Amlodipine Besylate 2.5 Mg Tablet) 7.5 mg PO DAILY [facility]; Protocol Last Admin: 02/01/25 08:24 Dose: 7.5 mg Buspirone HCl (Buspirone Hcl 5 Mg Tablet) 15 mg PO TID [facility] Last Admin: 02/01/25 08:23 Dose: 15 mg Clonidine HCl (Clonidine Hcl 0.1 Mg Tablet) 0.1 mg PO BID@0900,1300 [facility]; Protocol Last Admin: 02/01/25 13:00 Dose: 0.1 mg Dicyclomine HCl (Dicyclomine Hcl 10 Mg Capsule) 10 mg PO QIDACHS [facility] Last Admin: 02/01/25 12:15 Dose: 10 mg Diphenhydramine HCl (Diphenhydramine Hcl 25 Mg Capsule) 25 mg PO Q4H PRN PRN Reason: itchiness Last Admin: 01/31/25 20:15 Dose: 25 mg Diphenhydramine HCl (Diphenhydramine Hcl 25 Mg Capsule) 25 mg PO Q4H PRN PRN Reason: agitation Last Admin: 02/01/25 13:01 Dose: 25 mg Ferrous Sulfate (Ferrous Sulfate 324 Mg Tablet.Dr) 324 mg PO DAILY [facility] Last Admin: 02/01/25 08:23 Dose: 324 mg Haloperidol (Haloperidol 1 Mg Tablet) 2 mg PO BID@0900,1700 [facility] Last Admin: 02/01/25 08:23 Dose: 2 mg Haloperidol (Haloperidol 5 Mg Tablet) 5 mg PO Q4H PRN PRN Reason: agitation Last Admin: 02/01/25 13:01 Dose: 5 mg Hydroxyzine HCl (Hydroxyzine Hcl 25 Mg Tablet) 25 mg PO Q6H PRN PRN Reason: mild anxiety Last Admin: 01/30/25 11:40 Dose: 25 mg Ibuprofen (Ibuprofen 400 Mg Tablet) 400 mg PO Q6H PRN PRN Reason: Pain, Moderate(Pain Scale 4-6) Last Admin: 01/31/25 18:08 Dose: 400 mg Lactase (Lactase Tablet) 2 tab PO TIDWM [facility] Last Admin: 02/01/25 12:15 Dose: 2 tab Lorazepam (Lorazepam 1 Mg Tablet) 2 mg PO Q4H PRN PRN Reason: agitation Last Admin: 02/01/25 13:01 Dose: 2 mg Magnesium Hydroxide (Milk Of Magnesia 30 Ml Oral.Susp) 30 ml PO DAILY PRN PRN Reason: Constipation Omeprazole (Omeprazole 40 Mg Capsule.Dr) 40 mg PO BID@0630,1630 [facility] Last Admin: 02/01/25 06:30 Dose: 40 mg Sertraline HCl (Sertraline Hcl 50 Mg Tablet) 150 mg PO DAILY [facility] Last Admin: 02/01/25 08:23 Dose: 150 mg Trazodone HCl (Trazodone Hcl 25 Mg Halftab) 25 mg PO BEDTIME [facility] Last Admin: 01/31/25 20:14 Dose: 25 mg Trazodone HCl (Trazodone Hcl 100 Mg Tablet) 100 mg PO BEDTIME [facility] Last Admin: 01/31/25 20:15 Dose: 100 mg Trazodone HCl (Trazodone Hcl 50 Mg Tablet) 50 mg PO BEDTIME MRX1 PRN PRN Reason: Insomnia Allergies Allergies Allergy/AdvReac Type Severity Reaction Status Date / Time Opioids - Morphine Analogues Allergy Severe NAUSEA, Unverified 01/26/25 11:05 [OPIOIDS - MORPHINE HIVES, ANALOGUES] STOPS BREATHING Assessment & Plan Assessment & Plan (1) MDD (major depressive disorder), recurrent severe, without psychosis: Status: Acute Code(s): F33.2 - Major depressive disorder, recurrent severe without psychotic features (2) Acute adjustment disorder with mixed disturbance of emotions and conduct: Status: Acute Code(s): F43.25 - Adjustment disorder with mixed disturbance of emotions and conduct (3) PTSD (post-traumatic stress disorder): Status: Acute Code(s): F43.10 - Post-traumatic stress disorder, unspecified (4) Intellectual disability: Status: Acute Code(s): F79 - Unspecified intellectual disabilities Plan Formulation/clinical reasoning: Will diagnosed with MDD with acute adjustment disorder superimposed Patient seems to be depressed; she has difficult time expressing her feelings with words and is prone to emotional reactivity and irritability, as well as self-harm which has been increasing over months. Patient reports and mother concurs that getting the colostomy bag has felt demoralizing to patient; her mother thinks that patient's long time boyfriend has been backing off of the relationship as patient's health has declined (which included losing her teeth about a year and a half ago and now having a colostomy bag); mother thinks patient is worried about losing this relationship. -will discontinue Risperdal which was started this admission; instead will order Haldol 2.5 mg b.i.d. since that was effective in controlling patient's extreme dysregulation on the unit. -patient was hypertensive initially but that may very well be due to her agitated state; made vitals t.i.d. to monitor -patient's mother is healthcare proxy; will consider whether to invoke healthcare proxy Plan: CV Q 15 minute checks Start Haldol 2.5 mg b.i.d. for agitation (DC Risperdal which was started in the ED) Added clonidine due to hypertension and high anxiety Continue trazodone 125 mg q.h.s. continue Zoloft 150 mg daily;patient says it does not help but it certainly could be partially helpful continue iron sulfate continue buspirone 15 mg t.i.d. continue amlodipine 7.5 mg daily -ordered wound consult to assess colostomy area Continue to gather collateral 01/29: Continue current management and treatment plan. Remains intermittently agitated. Low frustration tolerance. 01/30: continue current management and treatment plan. 01/31: no agitation last night. restrict mother's visits to unit due to pattern of agitation and self-harm after her visits. endorsing SI/SIBI today. add dicyclomine for abd cramping. continue current mgmt otherwise. 02/01: calmer after haldol/ativan/benadryl yesterday, no escalated behaviors luke. labile/irritable this morning, terms of behavior plan of ability to visit with mother if maintains safety for 24H reviewed with patient. remains angry to have ostomy. asserting she will leave with her mother when her mother comes to visit. Reason for continued inpatient stay Substantial Risk for: harm to self and inability to function Time Spent With Patient Time: Total time managing care of this patient today __25__ minutes.
--- NOTE | 2025-02-01 14:10 | HO.OSTOMY ---
Ostomy Consult: Deferred to future 54yr old female admitted to [facility] on 01/27/25 - see H&P for detailed history. Ostomy consult placed for teaching and coping - chart review reveals patient remains in Crisis and is not yet ready to receive teaching and education. Discussed with direct care nurse she confirms patient is not yet ready for teaching. Will continue to re-assess and teach when appropriate. Of note chart review reveals the Colostomy was created at an outside hospital ([facility]) on 01/14/25 and patient was discharged to SNF for continued care prior to admission to [facility]. Will follow along and watch for readiness to receive teaching.
[2025-02-01 21:00] VITALS: BP 106/52; PULSE 85; RESP 16; TEMP 36.4; O2SAT 97
[2025-02-01] MEDS: traZODone HCL 100 MG TABLET PO (21:12)
[2025-02-01] MEDS: traZODone HCL 25 MG HALFTAB PO (21:12)
[2025-02-02] MEDS: Omeprazole 40 MG CAPSULE.DR PO ×2 (06:22→16:57)
[2025-02-02 07:15] VITALS: BP 118/59; PULSE 88; RESP 16; TEMP 36.9; O2SAT 99
[2025-02-02 08:37] VITALS: BP 118/59
[2025-02-02] MEDS: Lactase TABLET 2 TAB PO ×3 (08:37→16:57)
[2025-02-02] MEDS: amLODIPine Besylate 2.5 MG TABLET 7.5 MG PO (08:37)
[2025-02-02 08:38] VITALS: BP 118/59
[2025-02-02] MEDS: cloNIDine HCL 0.1 MG TABLET PO ×2 (08:38→15:58)
[2025-02-02] MEDS: Ferrous Sulfate 324 MG TABLET.DR PO (08:38)
[2025-02-02] MEDS: busPIRone HCl 5 MG TABLET 15 MG PO ×3 (08:38→20:50)
[2025-02-02] MEDS: Sertraline HCL 50 MG TABLET 150 MG PO (08:38)
[2025-02-02] MEDS: HaloperidoL 1 MG TABLET 2 MG PO ×2 (08:38→16:57)
[2025-02-02] MEDS: Dicyclomine HCl 10 MG CAPSULE PO ×4 (08:38→20:50)
[2025-02-02] MEDS: Acetaminophen 325 MG TABLET 650 MG PO (08:44)
[2025-02-02] MEDS: Ibuprofen 400 MG TABLET PO (10:15)
[2025-02-02] MEDS: hydrOXYzine HCL 25 MG TABLET PO (10:16)
--- NOTE | 2025-02-02 12:07 | P.PNPSI_ITS ---
Subjective Subjective Date of Service: 02/02/25 Reason For Visit: crisis Interim History: pleasant, cooperative. asking for PT to be able to climb stairs at her parents' home. also asking to let me get better and stronger. in agreement to move to discharge to rehab. per staff, remains on 1:1. less labile. fewer outbursts. some slapping of the face and slamming doors upon limit-setting. taking meds. Mental Status Exam Mental Status Exam Narrative: adequately dressed and groomed. calm, cooperative. no PMA/PMR. speech nml rate amount loudness tone latency. thoughts linear and logical. affect flexible, normo-intense, non-labile. mood excellent! no SI/SIBI/HI/AVH. Diagnostics Vital Signs (24Hr): Vital Signs - 24 hr 02/01/25 13:00 02/01/25 21:00 02/02/25 07:15 Temperature 97.6 F 98.4 F Pulse Rate 85 88 Respiratory Rate 16 16 Blood Pressure 142/64 H 106/52 L 118/59 L Pulse Oximetry 97 99 Oxygen Delivery Method Room Air Room Air 02/02/25 08:37 02/02/25 08:38 Temperature Pulse Rate Respiratory Rate Blood Pressure 118/59 L 118/59 L Pulse Oximetry Oxygen Delivery Method BMI result Body Mass Index 22.0 Labs 01/26/25 11:29 01/28/25 08:07 Medications Medications Current Medications Acetaminophen (Acetaminophen 325 Mg Tablet) 650 mg PO Q6H PRN PRN Reason: Headache/Pain, Scale 1-10 Last Admin: 02/02/25 08:44 Dose: 650 mg Al Hydroxide/Mg Hydroxide (Magnesium Hydrox/Alum Hydrox 30 Ml Oral.Susp) 30 ml PO Q6H PRN PRN Reason: Heartburn/Nausea Last Admin: 01/30/25 13:26 Dose: 30 ml Albuterol Sulfate (Albuterol Sulfate 90 Mcg 8 Gm Inhaler) 2 puff INHALE Q4H PRN PRN Reason: Wheezing Amlodipine Besylate (Amlodipine Besylate 2.5 Mg Tablet) 7.5 mg PO DAILY [facility]; Protocol Last Admin: 02/02/25 08:37 Dose: 7.5 mg Buspirone HCl (Buspirone Hcl 5 Mg Tablet) 15 mg PO TID [facility] Last Admin: 02/02/25 08:38 Dose: 15 mg Clonidine HCl (Clonidine Hcl 0.1 Mg Tablet) 0.1 mg PO BID@0900,1300 [facility]; Protocol Last Admin: 02/02/25 08:38 Dose: 0.1 mg Dicyclomine HCl (Dicyclomine Hcl 10 Mg Capsule) 10 mg PO QIDACHS [facility] Last Admin: 02/02/25 11:26 Dose: 10 mg Diphenhydramine HCl (Diphenhydramine Hcl 25 Mg Capsule) 25 mg PO Q4H PRN PRN Reason: itchiness Last Admin: 01/31/25 20:15 Dose: 25 mg Diphenhydramine HCl (Diphenhydramine Hcl 25 Mg Capsule) 25 mg PO Q4H PRN PRN Reason: agitation Last Admin: 02/01/25 13:01 Dose: 25 mg Ferrous Sulfate (Ferrous Sulfate 324 Mg Tablet.) 324 mg PO DAILY [facility] Last Admin: 02/02/25 08:38 Dose: 324 mg Haloperidol (Haloperidol 1 Mg Tablet) 2 mg PO BID@0900,1700 [facility] Last Admin: 02/02/25 08:38 Dose: 2 mg Haloperidol (Haloperidol 5 Mg Tablet) 5 mg PO Q4H PRN PRN Reason: agitation Last Admin: 02/01/25 13:01 Dose: 5 mg Hydroxyzine HCl (Hydroxyzine Hcl 25 Mg Tablet) 25 mg PO Q6H PRN PRN Reason: mild anxiety Last Admin: 02/02/25 10:16 Dose: 25 mg Ibuprofen (Ibuprofen 400 Mg Tablet) 400 mg PO Q6H PRN PRN Reason: Pain, Moderate(Pain Scale 4-6) Last Admin: 02/02/25 10:15 Dose: 400 mg Lactase (Lactase Tablet) 2 tab PO TIDWM [facility] Last Admin: 02/02/25 11:26 Dose: 2 tab Lorazepam (Lorazepam 1 Mg Tablet) 2 mg PO Q4H PRN PRN Reason: agitation Last Admin: 02/01/25 13:01 Dose: 2 mg Magnesium Hydroxide (Milk Of Magnesia 30 Ml Oral.Susp) 30 ml PO DAILY PRN PRN Reason: Constipation Omeprazole (Omeprazole 40 Mg Capsule.) 40 mg PO BID@0630,1630 [facility] Last Admin: 02/02/25 06:22 Dose: 40 mg Sertraline HCl (Sertraline Hcl 50 Mg Tablet) 150 mg PO DAILY [facility] Last Admin: 02/02/25 08:38 Dose: 150 mg Trazodone HCl (Trazodone Hcl 25 Mg Halftab) 25 mg PO BEDTIME [facility] Last Admin: 02/01/25 21:12 Dose: 25 mg Trazodone HCl (Trazodone Hcl 100 Mg Tablet) 100 mg PO BEDTIME [facility] Last Admin: 02/01/25 21:12 Dose: 100 mg Trazodone HCl (Trazodone Hcl 50 Mg Tablet) 50 mg PO BEDTIME MRX1 PRN PRN Reason: Insomnia Allergies Allergies Allergy/AdvReac Type Severity Reaction Status Date / Time Opioids - Morphine Analogues Allergy Severe NAUSEA, Unverified 01/26/25 11:05 [OPIOIDS - MORPHINE HIVES, ANALOGUES] STOPS BREATHING Assessment & Plan Assessment & Plan (1) MDD (major depressive disorder), recurrent severe, without psychosis: Status: Acute Code(s): F33.2 - Major depressive disorder, recurrent severe without psychotic features (2) Acute adjustment disorder with mixed disturbance of emotions and conduct: Status: Acute Code(s): F43.25 - Adjustment disorder with mixed disturbance of emotions and conduct (3) PTSD (post-traumatic stress disorder): Status: Acute Code(s): F43.10 - Post-traumatic stress disorder, unspecified (4) Intellectual disability: Status: Acute Code(s): F79 - Unspecified intellectual disabilities Plan Formulation/clinical reasoning: Will diagnosed with MDD with acute adjustment disorder superimposed Patient seems to be depressed; she has difficult time expressing her feelings with words and is prone to emotional reactivity and irritability, as well as self-harm which has been increasing over months. Patient reports and mother concurs that getting the colostomy bag has felt demoralizing to patient; her mother thinks that patient's long time boyfriend has been backing off of the relationship as patient's health has declined (which included losing her teeth about a year and a half ago and now having a colostomy bag); mother thinks patient is worried about losing this relationship. -will discontinue Risperdal which was started this admission; instead will order Haldol 2.5 mg b.i.d. since that was effective in controlling patient's extreme dysregulation on the unit. -patient was hypertensive initially but that may very well be due to her agitated state; made vitals t.i.d. to monitor -patient's mother is healthcare proxy; will consider whether to invoke healthcare proxy Plan: CV Q 15 minute checks Start Haldol 2.5 mg b.i.d. for agitation (DC Risperdal which was started in the ED) Added clonidine due to hypertension and high anxiety Continue trazodone 125 mg q.h.s. continue Zoloft 150 mg daily;patient says it does not help but it certainly could be partially helpful continue iron sulfate continue buspirone 15 mg t.i.d. continue amlodipine 7.5 mg daily -ordered wound consult to assess colostomy area Continue to gather collateral 01/29: Continue current management and treatment plan. Remains intermittently agitated. Low frustration tolerance. 01/30: continue current management and treatment plan. 01/31: no agitation last night. restrict mother's visits to unit due to pattern of agitation and self-harm after her visits. endorsing SI/SIBI today. add dicyclomine for abd cramping. continue current mgmt otherwise. 02/01: calmer after haldol/ativan/benadryl yesterday, no escalated behaviors luke. labile/irritable this morning, terms of behavior plan of ability to visit with mother if maintains safety for 24H reviewed with patient. remains angry to have ostomy. asserting she will leave with her mother when her mother comes to visit. 02/02: some mild self-harm yesterday in the face of limit-setting. none since. visited with mother today, quite happy. asking for PT, no mental health complaints or requests. agreeable to discharge to [facility]. Reason for continued inpatient stay Substantial Risk for: stable for discharge and rapid decompensation Time Spent With Patient Time: Total time managing care of this patient today __25__ minutes.
--- NOTE | 2025-02-02 15:46 | HO.OSTOMY ---
Addendum entered by Bhavana Alejo RN 02/04/25 10:12: 02/04/25 @ 1000 Spoke to direct care nurse - patient pouch is intact and staff feels confident to change pouch if needed. Report patient at times reports being overwhelmed with ostomy, she has been encouraged to participate but has refused and was overheard on the telephone stating the direct care team was not allowing her to empty on her own. Advised to continue to support and encourage her participation in emptying her pouch. If she were to d/c to home she would need VNA services and continued support with her pouch as she is not independent with care as of this time. Patient is not set for d/c and direct care team will continue to reinforce participation with emptying her pouch. Will follow up early next week if patient remains inpatient. Original Note: Ostomy consult: Initial 54yr old female admitted to [facility] behavioral [facility] unit 01/27/25 - see H&P for details. She had a colostomy creation at an outside Hospital on January 14 secondary to prolapsed rectum. The patient has had some teaching with the ostomy at her SNF but feels she needs more. Arrival to bedside she was pleasant and agreeable to my assessment and teaching. She reports she has been watching staff empty her pouch but not doing so herself. She is agreeable to trying to empty her pouch over the toilet after we discuss her ostomy. She watched the [facility] Ostomy Education videos to provide context for her. These videos led to some further questions. She was able to provide an open close on an empty pouch. She ambulated to the bathroom and attempted to empty her pouch standing over the toilet. She did very well considering it was her first time - she did need some help and reinforcement but over all great first attempt - she was congratulated on this. New life with an ostomy can be overwhelming in the best of circumstances. Her pouch was noted to be silent leaking and she was agreeable to her pouch change. She was able to verbally walk me through a pouch change and directed me to the supplies she needed. The pouch was removed and noted to have been cut too large with peristomal skin exposed likely causing her discomfort at her stoma site. The peristomal skin was noted for pink tissue remains intact - mid MASD noted. Stoma is slightly oval, red pink and moist and well above skin level. The patient was able to correctly choose the stoma opening to cut the pouch with use of the stoma measuring guide (few left with direct care team along with template for her opening). It was cut to a 38mm slightly oval - template left in [facility] box with direct care nurse. Skin prep applied to skin prior to pouch application. Patient tolerated well. She will benefit from continued and education. Prior to leaving the patient reported being overwhelmed she was reminded this was normal and she will adjust with support and time. All questions were asked and answered prior to leaving.
[2025-02-02 15:58] VITALS: BP 133/72
[2025-02-02] MEDS: Magnesium Hydrox/Alum Hydrox 30 ML ORAL.SUSP PO (15:58)
--- NOTE | 2025-02-02 19:14 | PC.NURSE ---
pt had a witnessed fall at approximately 1700. Pt was standing at the phone, making a phone call. When the call ended, pt reported feeling dizzy and began to slowly move down and backwards. 2 staff members were able to guide the pt to the floor. Pt did not strike head or any other body part. Vitals obtain an WNL. Pt was escorted to a chair, given water, and vitals reassessed and continue to be wnl.
--- NOTE | 2025-02-02 19:33 | PC.NURSE ---
at about 1915 pt approache nurses station w/ 1:1 and reported feeling dizzy and began to strp backwards. TW came from behind the counter andhelped another staff slowly lower the pt to the floor. orthostatic bps taken were 143/65 (laying), 128/60 (sitting) and 124/58 (standing) POC 120. Provider EH notified via tiger text. Awaiting potential new orders
[2025-02-02 19:38] LABS: Glucose, Whole Blood 120 mg/dL (60-115)
[2025-02-02 20:23] VITALS: BP 124/58; PULSE 81; RESP 16; TEMP 36.6; O2SAT 97
[2025-02-02] MEDS: traZODone HCL 100 MG TABLET PO (20:50)
[2025-02-02] MEDS: traZODone HCL 25 MG HALFTAB PO (20:50)
[2025-02-03] MEDS: hydrOXYzine HCL 25 MG TABLET PO (01:47)
[2025-02-03] MEDS: Acetaminophen 325 MG TABLET 650 MG PO ×2 (01:47→18:18)
[2025-02-03] MEDS: Magnesium Hydrox/Alum Hydrox 30 ML ORAL.SUSP PO ×4 (02:47→22:59)
[2025-02-03 08:30] VITALS: BP 143/66; PULSE 93; RESP 16; TEMP 36.8; O2SAT 98
[2025-02-03] MEDS: Omeprazole 40 MG CAPSULE.DR PO ×2 (08:45→16:40)
[2025-02-03] MEDS: cloNIDine HCL 0.1 MG TABLET PO ×2 (08:45→12:52)
[2025-02-03] MEDS: Ferrous Sulfate 324 MG TABLET.DR PO (08:45)
[2025-02-03] MEDS: HaloperidoL 1 MG TABLET 2 MG PO ×2 (08:45→16:40)
[2025-02-03] MEDS: Sertraline HCL 50 MG TABLET 150 MG PO (08:45)
[2025-02-03] MEDS: amLODIPine Besylate 2.5 MG TABLET 7.5 MG PO (08:46)
[2025-02-03] MEDS: busPIRone HCl 5 MG TABLET 15 MG PO ×3 (08:46→22:18)
[2025-02-03] MEDS: Lactase TABLET 2 TAB PO ×3 (08:46→16:52)
[2025-02-03] MEDS: Dicyclomine HCl 10 MG CAPSULE PO ×4 (08:46→22:18)
[2025-02-03 12:52] VITALS: BP 129/60
--- NOTE | 2025-02-03 14:21 | HO.PSYCHPN ---
Subjective Subjective Date of Service: 02/03/25 Reason For Visit: crisis Interim History: lowering herself to the ground fainting today. father at her side, stroking her hair and providing encouraging words. able top get up and ambulate to her bed with help of staff and father. once parents left, no further episodes reported. case d/w parents, especially dispo options. per staff, pleasant, brighter. no outbursts. met with wound care nurse re colostomy care. restless sleep, 6 hours. Mental Status Exam Mental Status Exam Narrative: adequately dressed and groomed. calm, cooperative. no PMA/PMR. speech nml rate amount loudness tone latency. thoughts linear and logical. affect flexible, normo-intense, non-labile. mood not assessed. no SI/SIBI/HI/AVH expressed. Diagnostics Vital Signs (24Hr): Vital Signs - 24 hr 02/02/25 15:58 02/02/25 20:23 02/03/25 08:30 Temperature 97.8 F 98.2 F Pulse Rate 81 93 Respiratory Rate 16 16 Blood Pressure 133/72 124/58 L 143/66 H Pulse Oximetry 97 98 Oxygen Delivery Method Room Air Room Air 02/03/25 12:52 Temperature Pulse Rate Respiratory Rate Blood Pressure 129/60 Pulse Oximetry Oxygen Delivery Method BMI result Body Mass Index 22.0 Labs 01/26/25 11:29 01/28/25 08:07 Labs: Laboratory Results - last 48 hr 02/02/25 19:24 POC Glucose 120 H Medications Medications Current Medications Acetaminophen (Acetaminophen 325 Mg Tablet) 650 mg PO Q6H PRN PRN Reason: Headache/Pain, Scale 1-10 Last Admin: 02/03/25 01:47 Dose: 650 mg Al Hydroxide/Mg Hydroxide (Magnesium Hydrox/Alum Hydrox 30 Ml Oral.Susp) 30 ml PO Q6H PRN PRN Reason: Heartburn/Nausea Last Admin: 02/03/25 13:50 Dose: 30 ml Albuterol Sulfate (Albuterol Sulfate 90 Mcg 8 Gm Inhaler) 2 puff INHALE Q4H PRN PRN Reason: Wheezing Amlodipine Besylate (Amlodipine Besylate 2.5 Mg Tablet) 7.5 mg PO DAILY [facility]; Protocol Last Admin: 02/03/25 08:46 Dose: 7.5 mg Buspirone HCl (Buspirone Hcl 5 Mg Tablet) 15 mg PO TID [facility] Last Admin: 02/03/25 08:46 Dose: 15 mg Clonidine HCl (Clonidine Hcl 0.1 Mg Tablet) 0.1 mg PO BID@0900,1300 [facility]; Protocol Last Admin: 02/03/25 12:52 Dose: 0.1 mg Dicyclomine HCl (Dicyclomine Hcl 10 Mg Capsule) 10 mg PO QIDACHS [facility] Last Admin: 02/03/25 09:36 Dose: 10 mg Diphenhydramine HCl (Diphenhydramine Hcl 25 Mg Capsule) 25 mg PO Q4H PRN PRN Reason: itchiness Last Admin: 01/31/25 20:15 Dose: 25 mg Diphenhydramine HCl (Diphenhydramine Hcl 25 Mg Capsule) 25 mg PO Q4H PRN PRN Reason: agitation Last Admin: 02/01/25 13:01 Dose: 25 mg Ferrous Sulfate (Ferrous Sulfate 324 Mg Tablet.) 324 mg PO DAILY [facility] Last Admin: 02/03/25 08:45 Dose: 324 mg Haloperidol (Haloperidol 1 Mg Tablet) 2 mg PO BID@0900,1700 [facility] Last Admin: 02/03/25 08:45 Dose: 2 mg Haloperidol (Haloperidol 5 Mg Tablet) 5 mg PO Q4H PRN PRN Reason: agitation Last Admin: 02/01/25 13:01 Dose: 5 mg Hydroxyzine HCl (Hydroxyzine Hcl 25 Mg Tablet) 25 mg PO Q6H PRN PRN Reason: mild anxiety Last Admin: 02/03/25 01:47 Dose: 25 mg Ibuprofen (Ibuprofen 400 Mg Tablet) 400 mg PO Q6H PRN PRN Reason: Pain, Moderate(Pain Scale 4-6) Last Admin: 02/02/25 10:15 Dose: 400 mg Lactase (Lactase Tablet) 2 tab PO TIDWM [facility] Last Admin: 02/03/25 12:51 Dose: 2 tab Lorazepam (Lorazepam 1 Mg Tablet) 2 mg PO Q4H PRN PRN Reason: agitation Last Admin: 02/01/25 13:01 Dose: 2 mg Magnesium Hydroxide (Milk Of Magnesia 30 Ml Oral.Susp) 30 ml PO DAILY PRN PRN Reason: Constipation Omeprazole (Omeprazole 40 Mg Capsule.) 40 mg PO BID@0630,1630 [facility] Last Admin: 02/03/25 08:45 Dose: 40 mg Sertraline HCl (Sertraline Hcl 50 Mg Tablet) 150 mg PO DAILY [facility] Last Admin: 02/03/25 08:45 Dose: 150 mg Trazodone HCl (Trazodone Hcl 25 Mg Halftab) 25 mg PO BEDTIME [facility] Last Admin: 02/02/25 20:50 Dose: 25 mg Trazodone HCl (Trazodone Hcl 100 Mg Tablet) 100 mg PO BEDTIME [facility] Last Admin: 02/02/25 20:50 Dose: 100 mg Trazodone HCl (Trazodone Hcl 50 Mg Tablet) 50 mg PO BEDTIME MRX1 PRN PRN Reason: Insomnia Allergies Allergies Allergy/AdvReac Type Severity Reaction Status Date / Time Opioids - Morphine Analogues Allergy Severe NAUSEA, Unverified 01/26/25 11:05 [OPIOIDS - MORPHINE HIVES, ANALOGUES] STOPS BREATHING Assessment & Plan Assessment & Plan (1) MDD (major depressive disorder), recurrent severe, without psychosis: Status: Acute Code(s): F33.2 - Major depressive disorder, recurrent severe without psychotic features (2) Acute adjustment disorder with mixed disturbance of emotions and conduct: Status: Acute Code(s): F43.25 - Adjustment disorder with mixed disturbance of emotions and conduct (3) PTSD (post-traumatic stress disorder): Status: Acute Code(s): F43.10 - Post-traumatic stress disorder, unspecified (4) Intellectual disability: Status: Acute Code(s): F79 - Unspecified intellectual disabilities Plan Formulation/clinical reasoning: Will diagnosed with MDD with acute adjustment disorder superimposed Patient seems to be depressed; she has difficult time expressing her feelings with words and is prone to emotional reactivity and irritability, as well as self-harm which has been increasing over months. Patient reports and mother concurs that getting the colostomy bag has felt demoralizing to patient; her mother thinks that patient's long time boyfriend has been backing off of the relationship as patient's health has declined (which included losing her teeth about a year and a half ago and now having a colostomy bag); mother thinks patient is worried about losing this relationship. -will discontinue Risperdal which was started this admission; instead will order Haldol 2.5 mg b.i.d. since that was effective in controlling patient's extreme dysregulation on the unit. -patient was hypertensive initially but that may very well be due to her agitated state; made vitals t.i.d. to monitor -patient's mother is healthcare proxy; will consider whether to invoke healthcare proxy Plan: CV Q 15 minute checks Start Haldol 2.5 mg b.i.d. for agitation (DC Risperdal which was started in the ED) Added clonidine due to hypertension and high anxiety Continue trazodone 125 mg q.h.s. continue Zoloft 150 mg daily;patient says it does not help but it certainly could be partially helpful continue iron sulfate continue buspirone 15 mg t.i.d. continue amlodipine 7.5 mg daily -ordered wound consult to assess colostomy area Continue to gather collateral 01/29: Continue current management and treatment plan. Remains intermittently agitated. Low frustration tolerance. 01/30: continue current management and treatment plan. 01/31: no agitation last night. restrict mother's visits to unit due to pattern of agitation and self-harm after her visits. endorsing SI/SIBI today. add dicyclomine for abd cramping. continue current mgmt otherwise. 02/01: calmer after haldol/ativan/benadryl yesterday, no escalated behaviors luke. labile/irritable this morning, terms of behavior plan of ability to visit with mother if maintains safety for 24H reviewed with patient. remains angry to have ostomy. asserting she will leave with her mother when her mother comes to visit. 02/02: some mild self-harm yesterday in the face of limit-setting. none since. visited with mother today, quite happy. asking for PT, no mental health complaints or requests. agreeable to discharge to STR. 02/03: no agitation in the past 24+ hours. lowering self to ground today during parents' presence c/o fainting. once parents gone no further episodes. dispo d/w parents. will try for STR but if not forthcoming will send home with parents and VNA support. continue current mgmt. Reason for continued inpatient stay Substantial Risk for: inability to function Time Spent With Patient Time: Total time managing care of this patient today _35___ minutes.
[2025-02-03] MEDS: diphenhydrAMINE HCL 25 MG CAPSULE PO ×2 (16:43→22:19)
[2025-02-03 19:35] VITALS: BP 131/60; PULSE 78; RESP 16; TEMP 36.4; O2SAT 97
[2025-02-03] MEDS: traZODone HCL 100 MG TABLET PO (22:19)
[2025-02-03] MEDS: traZODone HCL 25 MG HALFTAB PO (22:19)
[2025-02-03] MEDS: Ibuprofen 400 MG TABLET PO (23:01)
[2025-02-04] MEDS: hydrOXYzine HCL 25 MG TABLET PO ×2 (04:00→20:58)
[2025-02-04] MEDS: Omeprazole 40 MG CAPSULE.DR PO ×2 (05:31→17:39)
[2025-02-04 07:05] VITALS: BP 138/65; PULSE 82; RESP 14; TEMP 36.9; O2SAT 98
[2025-02-04 08:11] VITALS: BP 138/65
[2025-02-04] MEDS: cloNIDine HCL 0.1 MG TABLET PO ×2 (08:11→12:49)
[2025-02-04 08:12] VITALS: BP 138/65
[2025-02-04] MEDS: busPIRone HCl 5 MG TABLET 15 MG PO ×3 (08:12→20:58)
[2025-02-04] MEDS: Sertraline HCL 50 MG TABLET 150 MG PO (08:12)
[2025-02-04] MEDS: amLODIPine Besylate 2.5 MG TABLET 7.5 MG PO (08:12)
[2025-02-04] MEDS: Lactase TABLET 2 TAB PO ×3 (08:12→17:39)
[2025-02-04] MEDS: Ferrous Sulfate 324 MG TABLET.DR PO (08:12)
[2025-02-04] MEDS: HaloperidoL 1 MG TABLET 2 MG PO ×2 (08:13→17:39)
[2025-02-04] MEDS: Dicyclomine HCl 10 MG CAPSULE PO ×4 (08:13→20:59)
[2025-02-04] MEDS: diphenhydrAMINE HCL 25 MG CAPSULE PO ×3 (08:20→22:42)
[2025-02-04] MEDS: HaloperidoL 5 MG TABLET PO ×2 (08:20→22:41)
[2025-02-04] MEDS: Famotidine 20 MG TABLET PO ×2 (10:16→20:59)
[2025-02-04] MEDS: Phenazopyridine HCL 100 MG TABLET PO ×2 (10:31→20:03)
[2025-02-04 12:49] VITALS: BP 181/72
[2025-02-04] MEDS: Acetaminophen 325 MG TABLET 650 MG PO ×2 (12:52→20:03)
--- NOTE | 2025-02-04 13:09 | P.PNPSI_ITS ---
Subjective Subjective Date of Service: 02/04/25 Reason For Visit: crisis Interim History: up a lot due to colostomy bag being awkward for her. wants PT. per staff, taking meds and attending groups. faux fainting. reporting anx/dep 10. slept about 2 hours only. seeking out staff attention. Mental Status Exam Mental Status Exam Narrative: adequately dressed and groomed. calm, cooperative. no PMA/PMR. speech nml rate amount loudness tone latency. thoughts linear and logical. affect flexible, normo-intense, non-labile. mood not assessed. no SI/SIBI/HI/AVH expressed. Diagnostics Vital Signs (24Hr): Vital Signs - 24 hr 02/03/25 19:35 02/04/25 07:05 02/04/25 08:11 Temperature 97.5 F 98.4 F Pulse Rate 78 82 Respiratory Rate 16 14 Blood Pressure 131/60 138/65 138/65 Pulse Oximetry 97 98 Oxygen Delivery Method Room Air Room Air 02/04/25 08:12 02/04/25 12:49 Temperature Pulse Rate Respiratory Rate Blood Pressure 138/65 181/72 H Pulse Oximetry Oxygen Delivery Method BMI result Body Mass Index 22.0 Labs 01/26/25 11:29 01/28/25 08:07 Labs: Laboratory Results - last 48 hr 02/02/25 19:24 POC Glucose 120 H Medications Medications Current Medications Acetaminophen (Acetaminophen 325 Mg Tablet) 650 mg PO Q6H PRN PRN Reason: Headache/Pain, Scale 1-10 Last Admin: 02/04/25 12:52 Dose: 650 mg Al Hydroxide/Mg Hydroxide (Magnesium Hydrox/Alum Hydrox 30 Ml Oral.Susp) 30 ml PO Q6H PRN PRN Reason: Heartburn/Nausea Last Admin: 02/03/25 22:59 Dose: 30 ml Albuterol Sulfate (Albuterol Sulfate 90 Mcg 8 Gm Inhaler) 2 puff INHALE Q4H PRN PRN Reason: Wheezing Amlodipine Besylate (Amlodipine Besylate 2.5 Mg Tablet) 7.5 mg PO DAILY [facility]; Protocol Last Admin: 02/04/25 08:12 Dose: 7.5 mg Buspirone HCl (Buspirone Hcl 5 Mg Tablet) 15 mg PO TID [facility] Last Admin: 02/04/25 08:12 Dose: 15 mg Clonidine HCl (Clonidine Hcl 0.1 Mg Tablet) 0.1 mg PO BID@0900,1300 [facility]; Protocol Last Admin: 02/04/25 12:49 Dose: 0.1 mg Dicyclomine HCl (Dicyclomine Hcl 10 Mg Capsule) 10 mg PO QIDACHS [facility] Last Admin: 02/04/25 11:22 Dose: 10 mg Diphenhydramine HCl (Diphenhydramine Hcl 25 Mg Capsule) 25 mg PO Q4H PRN PRN Reason: itchiness Last Admin: 02/04/25 08:20 Dose: 25 mg Diphenhydramine HCl (Diphenhydramine Hcl 25 Mg Capsule) 25 mg PO Q4H PRN PRN Reason: agitation Last Admin: 02/01/25 13:01 Dose: 25 mg Famotidine (Famotidine 20 Mg Tablet) 20 mg PO BID [facility] Last Admin: 02/04/25 10:16 Dose: 20 mg Ferrous Sulfate (Ferrous Sulfate 324 Mg Tablet.) 324 mg PO DAILY [facility] Last Admin: 02/04/25 08:12 Dose: 324 mg Haloperidol (Haloperidol 1 Mg Tablet) 2 mg PO BID@0900,1700 [facility] Last Admin: 02/04/25 08:13 Dose: 2 mg Haloperidol (Haloperidol 5 Mg Tablet) 5 mg PO Q4H PRN PRN Reason: agitation Last Admin: 02/04/25 08:20 Dose: 5 mg Hydroxyzine HCl (Hydroxyzine Hcl 25 Mg Tablet) 25 mg PO Q6H PRN PRN Reason: mild anxiety Last Admin: 02/04/25 04:00 Dose: 25 mg Ibuprofen (Ibuprofen 400 Mg Tablet) 400 mg PO Q6H PRN PRN Reason: Pain, Moderate(Pain Scale 4-6) Last Admin: 02/03/25 23:01 Dose: 400 mg Lactase (Lactase Tablet) 2 tab PO TIDWM [facility] Last Admin: 02/04/25 12:04 Dose: 2 tab Lorazepam (Lorazepam 1 Mg Tablet) 2 mg PO Q4H PRN PRN Reason: agitation Last Admin: 02/01/25 13:01 Dose: 2 mg Magnesium Hydroxide (Milk Of Magnesia 30 Ml Oral.Susp) 30 ml PO DAILY PRN PRN Reason: Constipation Omeprazole (Omeprazole 40 Mg Capsule.Dr) 40 mg PO BID@0630,1630 [facility] Last Admin: 02/04/25 05:31 Dose: 40 mg Phenazopyridine HCl (Phenazopyridine Hcl 100 Mg Tablet) 100 mg PO BIDWM PRN PRN Reason: UTI pain Stop: 02/05/25 17:11 Last Admin: 02/04/25 10:31 Dose: 100 mg Sertraline HCl (Sertraline Hcl 50 Mg Tablet) 150 mg PO DAILY [facility] Last Admin: 02/04/25 08:12 Dose: 150 mg Trazodone HCl (Trazodone Hcl 25 Mg Halftab) 25 mg PO BEDTIME [facility] Last Admin: 02/03/25 22:19 Dose: 25 mg Trazodone HCl (Trazodone Hcl 100 Mg Tablet) 100 mg PO BEDTIME [facility] Last Admin: 02/03/25 22:19 Dose: 100 mg Trazodone HCl (Trazodone Hcl 50 Mg Tablet) 50 mg PO BEDTIME MRX1 PRN PRN Reason: Insomnia Allergies Allergies Allergy/AdvReac Type Severity Reaction Status Date / Time Opioids - Morphine Analogues Allergy Severe NAUSEA, Unverified 01/26/25 11:05 [OPIOIDS - MORPHINE HIVES, ANALOGUES] STOPS BREATHING Assessment & Plan Assessment & Plan (1) MDD (major depressive disorder), recurrent severe, without psychosis: Status: Acute Code(s): F33.2 - Major depressive disorder, recurrent severe without psychotic features (2) Acute adjustment disorder with mixed disturbance of emotions and conduct: Status: Acute Code(s): F43.25 - Adjustment disorder with mixed disturbance of emotions and conduct (3) PTSD (post-traumatic stress disorder): Status: Acute Code(s): F43.10 - Post-traumatic stress disorder, unspecified (4) Intellectual disability: Status: Acute Code(s): F79 - Unspecified intellectual disabilities Plan Formulation/clinical reasoning: Will diagnosed with MDD with acute adjustment disorder superimposed Patient seems to be depressed; she has difficult time expressing her feelings with words and is prone to emotional reactivity and irritability, as well as self-harm which has been increasing over months. Patient reports and mother concurs that getting the colostomy bag has felt demoralizing to patient; her mother thinks that patient's long time boyfriend has been backing off of the relationship as patient's health has declined (which included losing her teeth about a year and a half ago and now having a colostomy bag); mother thinks patient is worried about losing this relationship. -will discontinue Risperdal which was started this admission; instead will order Haldol 2.5 mg b.i.d. since that was effective in controlling patient's extreme dysregulation on the unit. -patient was hypertensive initially but that may very well be due to her agitated state; made vitals t.i.d. to monitor -patient's mother is healthcare proxy; will consider whether to invoke healthcare proxy Plan: CV Q 15 minute checks Start Haldol 2.5 mg b.i.d. for agitation (DC Risperdal which was started in the ED) Added clonidine due to hypertension and high anxiety Continue trazodone 125 mg q.h.s. continue Zoloft 150 mg daily;patient says it does not help but it certainly could be partially helpful continue iron sulfate continue buspirone 15 mg t.i.d. continue amlodipine 7.5 mg daily -ordered wound consult to assess colostomy area Continue to gather collateral 01/29: Continue current management and treatment plan. Remains intermittently agitated. Low frustration tolerance. 01/30: continue current management and treatment plan. 01/31: no agitation last night. restrict mother's visits to unit due to pattern of agitation and self-harm after her visits. endorsing SI/SIBI today. add dicyclomine for abd cramping. continue current mgmt otherwise. 02/01: calmer after haldol/ativan/benadryl yesterday, no escalated behaviors luke. labile/irritable this morning, terms of behavior plan of ability to visit with mother if maintains safety for 24H reviewed with patient. remains angry to have ostomy. asserting she will leave with her mother when her mother comes to visit. 02/02: some mild self-harm yesterday in the face of limit-setting. none since. visited with mother today, quite happy. asking for PT, no mental health complaints or requests. agreeable to discharge to STR. 02/03: no agitation in the past 24+ hours. lowering self to ground today during parents' presence c/o fainting. once parents gone no further episodes. dispo d/w parents. will try for STR but if not forthcoming will send home with parents and VNA support. continue current mgmt. 02/04: planning for discharge cindy. stable. Reason for continued inpatient stay Substantial Risk for: inability to function and rapid decompensation Time Spent With Patient Time: Total time managing care of this patient today ____ minutes.
[2025-02-04 18:00] VITALS: BP 135/64; PULSE 74; RESP 17; TEMP 36.7; O2SAT 98
[2025-02-04] MEDS: traZODone HCL 100 MG TABLET PO (20:58)
[2025-02-04] MEDS: traZODone HCL 25 MG HALFTAB PO (20:58)
[2025-02-04] MEDS: Ibuprofen 400 MG TABLET PO (22:42)
[2025-02-04] MEDS: traZODone HCL 50 MG TABLET PO (23:56)
[2025-02-05] MEDS: Acetaminophen 325 MG TABLET 650 MG PO ×2 (06:50→16:39)
[2025-02-05] MEDS: Omeprazole 40 MG CAPSULE.DR PO ×2 (06:51→16:11)
[2025-02-05 07:05] VITALS: BP 144/65; PULSE 84; RESP 14; TEMP 36.9; O2SAT 97
[2025-02-05] MEDS: Famotidine 20 MG TABLET PO ×2 (08:22→21:13)
[2025-02-05] MEDS: Sertraline HCL 50 MG TABLET 150 MG PO (08:22)
[2025-02-05] MEDS: busPIRone HCl 5 MG TABLET 15 MG PO ×3 (08:22→21:12)
[2025-02-05] MEDS: Ferrous Sulfate 324 MG TABLET.DR PO (08:22)
[2025-02-05] MEDS: Lactase TABLET 2 TAB PO ×3 (08:22→16:39)
[2025-02-05] MEDS: HaloperidoL 1 MG TABLET 2 MG PO ×2 (08:23→16:39)
[2025-02-05] MEDS: Dicyclomine HCl 10 MG CAPSULE PO ×4 (08:23→21:13)
[2025-02-05] MEDS: amLODIPine Besylate 2.5 MG TABLET 7.5 MG PO (08:23)
[2025-02-05] MEDS: cloNIDine HCL 0.1 MG TABLET PO ×2 (08:23→13:14)
[2025-02-05] MEDS: hydrOXYzine HCL 25 MG TABLET PO (10:29)
[2025-02-05 13:12] VITALS: BP 134/63; PULSE 75; RESP 18
[2025-02-05] MEDS: diphenhydrAMINE HCL 25 MG CAPSULE PO ×2 (16:45→21:13)
[2025-02-05 18:08] VITALS: BP 142/63; PULSE 78; RESP 16; TEMP 36.3; O2SAT 97
--- NOTE | 2025-02-05 18:50 | HO.PSYCHPN ---
Subjective Subjective Date of Service: 02/05/25 Reason For Visit: crisis Interim History: calm, cooperative, pleasant. feeling nervous re discharge. per staff, emptying ostomy bag with assistance. pain/bloating, but lactose intolerant and eating lots of ice cream. counseled to decrease dairy product consumption. slept 7 hours. Mental Status Exam Mental Status Exam Narrative: adequately dressed and groomed. calm, cooperative. no PMA/PMR. speech nml rate amount loudness tone latency. thoughts linear and logical. affect flexible, normo-intense, non-labile. mood nervous. no SI/SIBI/HI/AVH expressed. Diagnostics Vital Signs (24Hr): Vital Signs - 24 hr 02/05/25 07:05 02/05/25 13:12 02/05/25 18:08 Temperature 98.5 F 97.4 F Pulse Rate 84 75 78 Respiratory Rate 14 18 16 Blood Pressure 144/65 H 134/63 142/63 H Pulse Oximetry 97 97 Oxygen Delivery Method Room Air BMI result Body Mass Index 22.0 Labs 01/26/25 11:29 01/28/25 08:07 Medications Medications Current Medications Acetaminophen (Acetaminophen 325 Mg Tablet) 650 mg PO Q6H PRN PRN Reason: Headache/Pain, Scale 1-10 Last Admin: 02/05/25 16:39 Dose: 650 mg Al Hydroxide/Mg Hydroxide (Magnesium Hydrox/Alum Hydrox 30 Ml Oral.Susp) 30 ml PO Q6H PRN PRN Reason: Heartburn/Nausea Last Admin: 02/03/25 22:59 Dose: 30 ml Albuterol Sulfate (Albuterol Sulfate 90 Mcg 8 Gm Inhaler) 2 puff INHALE Q4H PRN PRN Reason: Wheezing Amlodipine Besylate (Amlodipine Besylate 2.5 Mg Tablet) 7.5 mg PO DAILY [facility]; Protocol Last Admin: 02/05/25 08:23 Dose: 7.5 mg Buspirone HCl (Buspirone Hcl 5 Mg Tablet) 15 mg PO TID [facility] Last Admin: 02/05/25 14:36 Dose: 15 mg Clonidine HCl (Clonidine Hcl 0.1 Mg Tablet) 0.1 mg PO BID@0900,1300 [facility]; Protocol Last Admin: 02/05/25 13:14 Dose: 0.1 mg Dicyclomine HCl (Dicyclomine Hcl 10 Mg Capsule) 10 mg PO QIDACHS [facility] Last Admin: 02/05/25 16:11 Dose: 10 mg Diphenhydramine HCl (Diphenhydramine Hcl 25 Mg Capsule) 25 mg PO Q4H PRN PRN Reason: itchiness Last Admin: 02/05/25 16:45 Dose: 25 mg Diphenhydramine HCl (Diphenhydramine Hcl 25 Mg Capsule) 25 mg PO Q4H PRN PRN Reason: agitation Last Admin: 02/04/25 22:42 Dose: 25 mg Famotidine (Famotidine 20 Mg Tablet) 20 mg PO BID [facility] Last Admin: 02/05/25 08:22 Dose: 20 mg Ferrous Sulfate (Ferrous Sulfate 324 Mg Tablet.) 324 mg PO DAILY [facility] Last Admin: 02/05/25 08:22 Dose: 324 mg Haloperidol (Haloperidol 1 Mg Tablet) 2 mg PO BID@0900,1700 [facility] Last Admin: 02/05/25 16:39 Dose: 2 mg Haloperidol (Haloperidol 5 Mg Tablet) 5 mg PO Q4H PRN PRN Reason: agitation Last Admin: 02/04/25 22:41 Dose: 5 mg Hydroxyzine HCl (Hydroxyzine Hcl 25 Mg Tablet) 25 mg PO Q6H PRN PRN Reason: mild anxiety Last Admin: 02/05/25 10:29 Dose: 25 mg Ibuprofen (Ibuprofen 400 Mg Tablet) 400 mg PO Q6H PRN PRN Reason: Pain, Moderate(Pain Scale 4-6) Last Admin: 02/04/25 22:42 Dose: 400 mg Lactase (Lactase Tablet) 2 tab PO TIDWM [facility] Last Admin: 02/05/25 16:39 Dose: 2 tab Lorazepam (Lorazepam 1 Mg Tablet) 1 mg PO Q4H PRN PRN Reason: agitation Magnesium Hydroxide (Milk Of Magnesia 30 Ml Oral.Susp) 30 ml PO DAILY PRN PRN Reason: Constipation Omeprazole (Omeprazole 40 Mg Capsule.) 40 mg PO BID@0630,1630 [facility] Last Admin: 02/05/25 16:11 Dose: 40 mg Sertraline HCl (Sertraline Hcl 50 Mg Tablet) 150 mg PO DAILY [facility] Last Admin: 02/05/25 08:22 Dose: 150 mg Trazodone HCl (Trazodone Hcl 25 Mg Halftab) 25 mg PO BEDTIME [facility] Last Admin: 02/04/25 20:58 Dose: 25 mg Trazodone HCl (Trazodone Hcl 100 Mg Tablet) 100 mg PO BEDTIME [facility] Last Admin: 02/04/25 20:58 Dose: 100 mg Trazodone HCl (Trazodone Hcl 50 Mg Tablet) 50 mg PO BEDTIME MRX1 PRN PRN Reason: Insomnia Last Admin: 02/04/25 23:56 Dose: 50 mg Allergies Allergies Allergy/AdvReac Type Severity Reaction Status Date / Time Opioids - Morphine Analogues Allergy Severe NAUSEA, Unverified 01/26/25 11:05 [OPIOIDS - MORPHINE HIVES, ANALOGUES] STOPS BREATHING Assessment & Plan Assessment & Plan (1) MDD (major depressive disorder), recurrent severe, without psychosis: Status: Acute Code(s): F33.2 - Major depressive disorder, recurrent severe without psychotic features (2) Acute adjustment disorder with mixed disturbance of emotions and conduct: Status: Acute Code(s): F43.25 - Adjustment disorder with mixed disturbance of emotions and conduct (3) PTSD (post-traumatic stress disorder): Status: Acute Code(s): F43.10 - Post-traumatic stress disorder, unspecified (4) Intellectual disability: Status: Acute Code(s): F79 - Unspecified intellectual disabilities Plan Formulation/clinical reasoning: Will diagnosed with MDD with acute adjustment disorder superimposed Patient seems to be depressed; she has difficult time expressing her feelings with words and is prone to emotional reactivity and irritability, as well as self-harm which has been increasing over months. Patient reports and mother concurs that getting the colostomy bag has felt demoralizing to patient; her mother thinks that patient's long time boyfriend has been backing off of the relationship as patient's health has declined (which included losing her teeth about a year and a half ago and now having a colostomy bag); mother thinks patient is worried about losing this relationship. -will discontinue Risperdal which was started this admission; instead will order Haldol 2.5 mg b.i.d. since that was effective in controlling patient's extreme dysregulation on the unit. -patient was hypertensive initially but that may very well be due to her agitated state; made vitals t.i.d. to monitor -patient's mother is healthcare proxy; will consider whether to invoke healthcare proxy Plan: CV Q 15 minute checks Start Haldol 2.5 mg b.i.d. for agitation (DC Risperdal which was started in the ED) Added clonidine due to hypertension and high anxiety Continue trazodone 125 mg q.h.s. continue Zoloft 150 mg daily;patient says it does not help but it certainly could be partially helpful continue iron sulfate continue buspirone 15 mg t.i.d. continue amlodipine 7.5 mg daily -ordered wound consult to assess colostomy area Continue to gather collateral 01/29: Continue current management and treatment plan. Remains intermittently agitated. Low frustration tolerance. 01/30: continue current management and treatment plan. 01/31: no agitation last night. restrict mother's visits to unit due to pattern of agitation and self-harm after her visits. endorsing SI/SIBI today. add dicyclomine for abd cramping. continue current mgmt otherwise. 02/01: calmer after haldol/ativan/benadryl yesterday, no escalated behaviors luke. labile/irritable this morning, terms of behavior plan of ability to visit with mother if maintains safety for 24H reviewed with patient. remains angry to have ostomy. asserting she will leave with her mother when her mother comes to visit. 02/02: some mild self-harm yesterday in the face of limit-setting. none since. visited with mother today, quite happy. asking for PT, no mental health complaints or requests. agreeable to discharge to STR. 02/03: no agitation in the past 24+ hours. lowering self to ground today during parents' presence c/o fainting. once parents gone no further episodes. dispo d/w parents. will try for STR but if not forthcoming will send home with parents and VNA support. continue current mgmt. 02/04: planning for discharge friday. stable. 02/05: stable. friday discharge. continue current mgmt. Reason for continued inpatient stay Substantial Risk for: inability to function and rapid decompensation Time Spent With Patient Time: Total time managing care of this patient today ____ minutes.
[2025-02-05] MEDS: traZODone HCL 25 MG HALFTAB PO (21:12)
[2025-02-05] MEDS: traZODone HCL 100 MG TABLET PO (21:12)
[2025-02-05] MEDS: Ibuprofen 400 MG TABLET PO (21:12)
[2025-02-06] MEDS: Acetaminophen 325 MG TABLET 650 MG PO ×2 (06:09→16:10)
[2025-02-06] MEDS: Omeprazole 40 MG CAPSULE.DR PO ×2 (06:09→16:10)
[2025-02-06 08:09] VITALS: BP 149/71; PULSE 81; RESP 18; TEMP 36.6; O2SAT 99
[2025-02-06] MEDS: amLODIPine Besylate 2.5 MG TABLET 7.5 MG PO (08:29)
[2025-02-06] MEDS: cloNIDine HCL 0.1 MG TABLET PO ×3 (08:29→22:01)
[2025-02-06] MEDS: Ferrous Sulfate 324 MG TABLET.DR PO (08:29)
[2025-02-06] MEDS: Famotidine 20 MG TABLET PO ×2 (08:29→22:01)
[2025-02-06] MEDS: Dicyclomine HCl 10 MG CAPSULE PO ×4 (08:30→22:02)
[2025-02-06] MEDS: busPIRone HCl 5 MG TABLET 15 MG PO ×3 (08:30→22:02)
[2025-02-06] MEDS: HaloperidoL 1 MG TABLET 2 MG PO ×2 (08:30→16:42)
[2025-02-06] MEDS: Lactase TABLET 2 TAB PO ×3 (08:30→16:42)
[2025-02-06] MEDS: Sertraline HCL 50 MG TABLET 150 MG PO (08:30)
[2025-02-06] MEDS: diphenhydrAMINE HCL 25 MG CAPSULE PO ×3 (09:39→22:02)
[2025-02-06] MEDS: Docusate Sodium 100 MG CAPSULE PO ×2 (11:00→22:01)
[2025-02-06] MEDS: Nystatin Powder 15 GM BOTTLE 1 APPL TOPICAL ×2 (13:13→22:09)
[2025-02-06 14:37] VITALS: BP 135/60
--- NOTE | 2025-02-06 15:38 | P.PNPSI_ITS ---
Subjective Subjective Date of Service: 02/06/25 Reason For Visit: crisis Interim History: pleasant, calm, cooperative. c/o panic attack at [facility], agreeable to add HS dose of clonidine. also amenable to stool softener and nystatin powder. per staff, cooperative, calm, joking, bright. appears to have fungal infection around breasts, stool from ostomy becoming formed and softener recommended. Mental Status Exam Mental Status Exam Narrative: adequately dressed and groomed. calm, cooperative. no PMA/PMR. speech nml rate amount loudness tone latency. thoughts linear and logical. affect flexible, normo-intense, non-labile. mood not assessed. no SI/SIBI/HI/AVH expressed. Diagnostics Vital Signs (24Hr): Vital Signs - 24 hr 02/05/25 18:08 02/06/25 08:09 02/06/25 14:37 Temperature 97.4 F 97.9 F Pulse Rate 78 81 Respiratory Rate 16 18 Blood Pressure 142/63 H 149/71 H 135/60 Pulse Oximetry 97 99 Oxygen Delivery Method Room Air Room Air BMI result Body Mass Index 22.0 Labs 01/26/25 11:29 01/28/25 08:07 Medications Medications Current Medications Acetaminophen (Acetaminophen 325 Mg Tablet) 650 mg PO Q6H PRN PRN Reason: Headache/Pain, Scale 1-10 Last Admin: 02/06/25 06:09 Dose: 650 mg Al Hydroxide/Mg Hydroxide (Magnesium Hydrox/Alum Hydrox 30 Ml Oral.Susp) 30 ml PO Q6H PRN PRN Reason: Heartburn/Nausea Last Admin: 02/03/25 22:59 Dose: 30 ml Albuterol Sulfate (Albuterol Sulfate 90 Mcg 8 Gm Inhaler) 2 puff INHALE Q4H PRN PRN Reason: Wheezing Amlodipine Besylate (Amlodipine Besylate 2.5 Mg Tablet) 7.5 mg PO DAILY [facility]; Protocol Last Admin: 02/06/25 08:29 Dose: 7.5 mg Buspirone HCl (Buspirone Hcl 5 Mg Tablet) 15 mg PO TID JOSE MARIA Last Admin: 02/06/25 14:37 Dose: 15 mg Clonidine HCl (Clonidine Hcl 0.1 Mg Tablet) 0.1 mg PO TID JOSE MARIA; Protocol Last Admin: 02/06/25 14:37 Dose: 0.1 mg Dicyclomine HCl (Dicyclomine Hcl 10 Mg Capsule) 10 mg PO QIDACHS [facility] Last Admin: 02/06/25 11:00 Dose: 10 mg Diphenhydramine HCl (Diphenhydramine Hcl 25 Mg Capsule) 25 mg PO Q4H PRN PRN Reason: itchiness Last Admin: 02/06/25 09:39 Dose: 25 mg Diphenhydramine HCl (Diphenhydramine Hcl 25 Mg Capsule) 25 mg PO Q4H PRN PRN Reason: agitation Last Admin: 02/04/25 22:42 Dose: 25 mg Docusate Sodium (Docusate Sodium 100 Mg Capsule) 100 mg PO BEDTIME [facility] Last Admin: 02/06/25 11:00 Dose: 100 mg Famotidine (Famotidine 20 Mg Tablet) 20 mg PO BID [facility] Last Admin: 02/06/25 08:29 Dose: 20 mg Ferrous Sulfate (Ferrous Sulfate 324 Mg Tablet.) 324 mg PO DAILY [facility] Last Admin: 02/06/25 08:29 Dose: 324 mg Haloperidol (Haloperidol 1 Mg Tablet) 2 mg PO BID@0900,1700 [facility] Last Admin: 02/06/25 08:30 Dose: 2 mg Haloperidol (Haloperidol 5 Mg Tablet) 5 mg PO Q4H PRN PRN Reason: agitation Last Admin: 02/04/25 22:41 Dose: 5 mg Hydroxyzine HCl (Hydroxyzine Hcl 25 Mg Tablet) 25 mg PO Q6H PRN PRN Reason: mild anxiety Last Admin: 02/05/25 10:29 Dose: 25 mg Ibuprofen (Ibuprofen 400 Mg Tablet) 400 mg PO Q6H PRN PRN Reason: Pain, Moderate(Pain Scale 4-6) Last Admin: 02/05/25 21:12 Dose: 400 mg Lactase (Lactase Tablet) 2 tab PO TIDWM [facility] Last Admin: 02/06/25 11:00 Dose: 2 tab Lorazepam (Lorazepam 1 Mg Tablet) 1 mg PO Q4H PRN PRN Reason: agitation Magnesium Hydroxide (Milk Of Magnesia 30 Ml Oral.Susp) 30 ml PO DAILY PRN PRN Reason: Constipation Nystatin (Nystatin Powder 15 Gm Bottle) 1 appl TOPICAL BID [facility]; Protocol Last Admin: 02/06/25 13:13 Dose: 1 appl Omeprazole (Omeprazole 40 Mg Capsule.) 40 mg PO BID@0630,1630 [facility] Last Admin: 02/06/25 06:09 Dose: 40 mg Sertraline HCl (Sertraline Hcl 50 Mg Tablet) 150 mg PO DAILY [facility] Last Admin: 02/06/25 08:30 Dose: 150 mg Trazodone HCl (Trazodone Hcl 25 Mg Halftab) 25 mg PO BEDTIME [facility] Last Admin: 02/05/25 21:12 Dose: 25 mg Trazodone HCl (Trazodone Hcl 100 Mg Tablet) 100 mg PO BEDTIME [facility] Last Admin: 02/05/25 21:12 Dose: 100 mg Trazodone HCl (Trazodone Hcl 50 Mg Tablet) 50 mg PO BEDTIME MRX1 PRN PRN Reason: Insomnia Last Admin: 02/04/25 23:56 Dose: 50 mg Allergies Allergies Allergy/AdvReac Type Severity Reaction Status Date / Time Opioids - Morphine Analogues Allergy Severe NAUSEA, Unverified 01/26/25 11:05 [OPIOIDS - MORPHINE HIVES, ANALOGUES] STOPS BREATHING Assessment & Plan Assessment & Plan (1) MDD (major depressive disorder), recurrent severe, without psychosis: Status: Acute Code(s): F33.2 - Major depressive disorder, recurrent severe without psychotic features (2) Acute adjustment disorder with mixed disturbance of emotions and conduct: Status: Acute Code(s): F43.25 - Adjustment disorder with mixed disturbance of emotions and conduct (3) PTSD (post-traumatic stress disorder): Status: Acute Code(s): F43.10 - Post-traumatic stress disorder, unspecified (4) Intellectual disability: Status: Acute Code(s): F79 - Unspecified intellectual disabilities Plan Formulation/clinical reasoning: Will diagnosed with MDD with acute adjustment disorder superimposed Patient seems to be depressed; she has difficult time expressing her feelings with words and is prone to emotional reactivity and irritability, as well as self-harm which has been increasing over months. Patient reports and mother concurs that getting the colostomy bag has felt demoralizing to patient; her mother thinks that patient's long time boyfriend has been backing off of the relationship as patient's health has declined (which included losing her teeth about a year and a half ago and now having a colostomy bag); mother thinks patient is worried about losing this relationship. -will discontinue Risperdal which was started this admission; instead will order Haldol 2.5 mg b.i.d. since that was effective in controlling patient's extreme dysregulation on the unit. -patient was hypertensive initially but that may very well be due to her agitated state; made vitals t.i.d. to monitor -patient's mother is healthcare proxy; will consider whether to invoke healthcare proxy Plan: CV Q 15 minute checks Start Haldol 2.5 mg b.i.d. for agitation (DC Risperdal which was started in the ED) Added clonidine due to hypertension and high anxiety Continue trazodone 125 mg q.h.s. continue Zoloft 150 mg daily;patient says it does not help but it certainly could be partially helpful continue iron sulfate continue buspirone 15 mg t.i.d. continue amlodipine 7.5 mg daily -ordered wound consult to assess colostomy area Continue to gather collateral 01/29: Continue current management and treatment plan. Remains intermittently agitated. Low frustration tolerance. 01/30: continue current management and treatment plan. 01/31: no agitation last night. restrict mother's visits to unit due to pattern of agitation and self-harm after her visits. endorsing SI/SIBI today. add dicyclomine for abd cramping. continue current mgmt otherwise. 02/01: calmer after haldol/ativan/benadryl yesterday, no escalated behaviors luke. labile/irritable this morning, terms of behavior plan of ability to visit with mother if maintains safety for 24H reviewed with patient. remains angry to have ostomy. asserting she will leave with her mother when her mother comes to visit. 02/02: some mild self-harm yesterday in the face of limit-setting. none since. visited with mother today, quite happy. asking for PT, no mental health complaints or requests. agreeable to discharge to STR. 02/03: no agitation in the past 24+ hours. lowering self to ground today during parents' presence c/o fainting. once parents gone no further episodes. dispo d/w parents. will try for STR but if not forthcoming will send home with parents and VNA support. continue current mgmt. 5/2: planning for discharge friday. stable. 02/05: stable. friday discharge. continue current mgmt. 5/: stable. c/o nocturnal panic attack, agreeable to add clonidine 0.1 mg at HS. also nystatin powder for fungal infection and stool softener. planning to discharge friday. Reason for continued inpatient stay Substantial Risk for: rapid decompensation Time Spent With Patient Time: Total time managing care of this patient today ____ minutes.
[2025-02-06 18:00] VITALS: BP 132/68; PULSE 80; RESP 16; TEMP 36.6; O2SAT 98
[2025-02-06 22:01] VITALS: BP 146/77
[2025-02-06] MEDS: traZODone HCL 100 MG TABLET PO (22:02)
[2025-02-06] MEDS: traZODone HCL 25 MG HALFTAB PO (22:03)
[2025-02-07] MEDS: traZODone HCL 50 MG TABLET PO (00:19)
[2025-02-07] MEDS: Omeprazole 40 MG CAPSULE.DR PO ×2 (07:33→17:05)
[2025-02-07] MEDS: Dicyclomine HCl 10 MG CAPSULE PO ×4 (07:33→21:39)
[2025-02-07] MEDS: Acetaminophen 325 MG TABLET 650 MG PO ×2 (07:33→17:04)
[2025-02-07 07:37] VITALS: BP 158/72; PULSE 82; RESP 14; TEMP 36.8; O2SAT 98
[2025-02-07] MEDS: amLODIPine Besylate 2.5 MG TABLET 7.5 MG PO (08:20)
[2025-02-07] MEDS: Famotidine 20 MG TABLET PO ×2 (08:20→21:38)
[2025-02-07] MEDS: busPIRone HCl 5 MG TABLET 15 MG PO ×3 (08:20→21:38)
[2025-02-07] MEDS: Sertraline HCL 50 MG TABLET 150 MG PO (08:21)
[2025-02-07] MEDS: diphenhydrAMINE HCL 25 MG CAPSULE PO (08:21)
[2025-02-07] MEDS: Lactase TABLET 2 TAB PO ×3 (08:21→17:05)
[2025-02-07] MEDS: Ferrous Sulfate 324 MG TABLET.DR PO (08:21)
[2025-02-07] MEDS: cloNIDine HCL 0.1 MG TABLET PO ×3 (08:21→21:38)
[2025-02-07] MEDS: HaloperidoL 1 MG TABLET 2 MG PO ×2 (08:21→17:05)
[2025-02-07] MEDS: Nystatin Powder 15 GM BOTTLE 1 APPL TOPICAL ×2 (08:22→22:21)
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
[2025-02-07] MEDS: Albuterol Sulfate 90 MCG 8 GM INHALER 2 PUFF INHALE (14:10)
[2025-02-07 15:02] VITALS: BP 117/62
[2025-02-07] MEDS: hydrOXYzine HCL 50 MG TABLET PO (15:04)
--- NOTE | 2025-02-07 17:13 | HO.OSTOMY ---
Ostomy consult: Follow up teaching 54yr old female admitted to [facility] behavioral [facility] unit 01/27/25 - see H&P for details. She had a colostomy creation at an outside Hospital on January 14 secondary to prolapsed rectum. The patient has had some teaching with the ostomy at her SNF but feels she needs more. Arrival to bedside she was pleasant and agreeable to my assessment and teaching, she does not recall meeting me previously but is pleasantly agreeable to my teaching her. She reports she has been watching staff empty her pouch and sometime trying it herself she reports she is finding it difficult to empty due to what she describes as her dexterity. She reports she is standing over the toilet to empty and reports it is messy. She was advised to on the toilet to empty her pouch. She was reluctant to this approach but was agreeable. Emptying the pouch she was noted to be rough and pulling at the pouch in an effort to empty the pouch - she was advised to be gently milk the pouch to empty the contents. this appeared to be frustrating to Claire and she asked me to take over due to the odor making her nauseous. She appeared to have difficulty concentrating at that time. I finished the emptying and cleansing of her pouch she did observe. Her pouch was noted to be leaking and lifting at the 12 o'clock bo - the pouch was removed and noted to have been cut extremely large. The patients stoma measures at 38 oval and the pouch was cut to 55MM round. That exposed the patients peristomal skin to stool and was causing her itching and burning. She was advised to measure and cute the pouch to size every time. There are concerns for her independence at this time with pouch care. She reported to me her mother and her aunt whom will be staying with them will help her to care for her pouch. She reports her mother is familiar and her aunt is a nurse so she will be comfortable. She was advised to have them review her book and the videos she watched on previous visit. She will benefit from VNA services for continued pouch care and teaching. Patient was reminded to empty her pouch when 1/3-1/2 full and change the pouch every 3-4 days and when leaking. She was instructed not to reinforce with tape. She was changed into a Coloplast flat 1 piece pouch cut 38mm oval skin prep applied before pouch adherence and barrier elastic strips used this application. Prior to leaving the patient reported being overwhelmed she was reminded this was normal and she will adjust with support and time. All questions were asked and answered prior to leaving.
[2025-02-07 18:00] VITALS: BP 117/62; PULSE 72; RESP 16; TEMP 36.8; O2SAT 97
[2025-02-07 20:00] VITALS: BP 148/72; PULSE 77; RESP 18; TEMP 36.8; O2SAT 98
[2025-02-07] MEDS: Ibuprofen 400 MG TABLET PO (21:37)
[2025-02-07 21:38] VITALS: BP 128/75
[2025-02-07] MEDS: traZODone HCL 100 MG TABLET PO (21:38)
[2025-02-07] MEDS: Docusate Sodium 100 MG CAPSULE PO (21:39)
[2025-02-07] MEDS: traZODone HCL 25 MG HALFTAB PO (21:39)
[2025-02-08 07:10] VITALS: BP 124/56; PULSE 77; RESP 14; TEMP 36.7; O2SAT 98
[2025-02-08] MEDS: Omeprazole 40 MG CAPSULE.DR PO (07:38)
[2025-02-08] MEDS: Acetaminophen 325 MG TABLET 650 MG PO (07:41)
[2025-02-08] MEDS: hydrOXYzine HCL 50 MG TABLET PO (07:42)
[2025-02-08 08:40] VITALS: BP 156/73
[2025-02-08] MEDS: Famotidine 20 MG TABLET PO (08:53)
[2025-02-08] MEDS: Lactase TABLET 2 TAB PO ×2 (08:54→12:08)
[2025-02-08] MEDS: Dicyclomine HCl 10 MG CAPSULE PO ×2 (08:54→12:08)
[2025-02-08] MEDS: cloNIDine HCL 0.1 MG TABLET PO (08:54)
[2025-02-08] MEDS: Ferrous Sulfate 324 MG TABLET.DR PO (08:54)
[2025-02-08] MEDS: Sertraline HCL 50 MG TABLET 150 MG PO (08:55)
[2025-02-08] MEDS: busPIRone HCl 5 MG TABLET 15 MG PO (08:55)
[2025-02-08] MEDS: amLODIPine Besylate 2.5 MG TABLET 7.5 MG PO (08:55)
[2025-02-08] MEDS: HaloperidoL 1 MG TABLET 2 MG PO (08:55)
[2025-02-08] MEDS: Ibuprofen 400 MG TABLET PO (12:11)
== END 2025-02-08 12:38 | disposition home or self-care (01) | DRG 885 ==
LOC: HO.ED 01-27 12:14 → HO.PADLT16 01-27 12:35
PROVIDERS: Emergency Medicine; Admitting Provider Registered Nurse; Emergency Provider Emergency Medicine; PCP Internal Medicine; Visit Provider Psychiatry & Neurology Psychiatry
DX: F33.2 Major depressive disorder, recurrent severe without psychotic features (principal); F43.25 Adjustment disorder with mixed disturbance of emotions and conduct; F43.10 Post-traumatic stress disorder, unspecified; F79 Unspecified intellectual disabilities; Z91.52 Personal history of nonsuicidal self-harm; Z87.891 Personal history of nicotine dependence; Z79.899 Other long term (current) drug therapy
CPT/HCPCS: 36415; 80053; 80061; 80307; 81001; 82947; 83036; 84702; 85025; 87086; 93005; 97161; 99285; S9485

== ENCOUNTER → 2025-01-27 07:27 | Outpatient (BNV) | payer MEDICARE, MEDICAID, SELFPAY | PROVIDERS: Admitting Provider Registered Nurse; Emergency Provider Emergency Medicine; PCP Internal Medicine; Visit Provider Internal Medicine | DX: R94.31 Abnormal electrocardiogram [ECG] [EKG] (principal); Z13.6 Encounter for screening for cardiovascular disorders | CPT/HCPCS: 93010 ==

== ENCOUNTER 2025-01-27 12:02 | Outpatient (BNV) | payer MEDICARE, MEDICAID, SELFPAY | END 2025-01-28 14:53 | PROVIDERS: Admitting Provider Registered Nurse; Emergency Provider Emergency Medicine; PCP Internal Medicine; Visit Provider Internal Medicine | DX: R00.0 Tachycardia, unspecified (principal) | CPT/HCPCS: 93010 ==

== ENCOUNTER → 2025-01-27 12:02 | Outpatient (BNV) | payer MEDICARE, MEDICAID, SELFPAY | PROVIDERS: Admitting Provider Registered Nurse; Emergency Provider Emergency Medicine; PCP Internal Medicine; Visit Provider Psychiatry & Neurology Psychiatry | DX: F33.2 Major depressive disorder, recurrent severe without psychotic features (principal); F43.25 Adjustment disorder with mixed disturbance of emotions and conduct; F43.11 Post-traumatic stress disorder, acute; F79 Unspecified intellectual disabilities | CPT/HCPCS: 90792; 99231; 99232; 99499 ==

== ENCOUNTER 2025-02-18 16:11 | Inpatient (IN) | payer MEDICARE, MEDICAID, SELFPAY ==
--- OUTSIDE RECORDS SUMMARY | 2025-02-18 16:16 | XMS_ITS | Clinical Summary ---
Author Organization [facility] Address [address] [place] [address] Care Team Providers Care Faucets Assembler Name Role Phone Marc Longo MD Primary Care Provider [phone] Allergies Active Allergy Reactions Criticality Noted Date Comments Aspirin 04/20/2007 Rash; NOT ALLERGIC PER PATIENT Rash; NOT ALLERGIC PER PATIENT Azithromycin Swelling 09/18/2015 Carisoprodol 07/21/2007 Codeine 11/17/2007 Gi upset Gi upset Diazepam 04/20/2007 gi upset,vom gi upset,vom Gabapentin 07/29/2014 nausea nausea Morphine 04/20/2007 gi upset,vom gi upset,vom Opium 02/02/2018 Oxycodone-Acetaminophen 04/20/2007 gi upset gi upset Acl-Sfo-Wgws-Nasulf-Na Asc-C 08/01/2017 Pheniramine 04/20/2007 Prednisone 02/29/2016 nausea [...] age to complete this topic Care Teams Faucets Assembler Relationship Specialty Start Date End Date Marc Longo MD PCP - General Internal Medicine 06/24/22
--- OUTSIDE RECORDS SUMMARY | 2025-02-18 16:16 | XMS_ITS | Encounter Summary ---
Author Organization [employer] Address [address] [place] [address] Care Team Providers Care Baking Assistant Name Role Phone Marc Longo MD Primary Care Provider [phone] Encounter Details Date Type Department Care Team (Late st Contact Info) Description 01/23/2025 Lab Requisition [facility] - Main Lab [address] [facility] [place] [address] Courtney Roger MD [address] [phone] Anemia, unspecified; Other disorders of electrolyte and [...] Entry Date Author Yes 01/14/2025 6:15 AM EDT Sandoval Yanes RN documented in this encounter Plan of Treatment Upcoming Encounters Date Type Department Care Team (Late st Contact Info) Description 02/24/2025 10:30 AM EDT Office Visit Adult Medicine [address] [phone] Marc Longo MD [address] [place] [address] 02/24/2025 1:00 PM EDT Appointment [facility] CT Scan [address] [place] [phone] 02/25/2025 8:45 AM EDT Office Visit General Surgery [facility] [address] [phone] Sebastian Sanabria MD [address] [address] 03/10/2025 10:00 AM EDT Office Visit Adult [facility] [address] [place] [address] Toshia Garcia PA [address] [place] [address] 06/21/2025 1:30 PM EDT Office Visit [facility] Hematology Oncology [address] [place] [address] Heide Covarrubias MD [address] [place] [address] documented as of this encounter Procedures Procedure [...] mmol/L LAB CHEMISTRY METHOD 01/24/2025 1:37 PM EDT [facility] Potassium 4.3 3.5 - 5.5 mmol/L LAB CHEMISTRY METHOD 01/24/2025 1:37 PM EDT [facility] Chloride 104 96 - 110 mmol/L LAB CHEMISTRY METHOD 01/24/2025 1:37 PM EDT [facility] CO2 28 21 - 32 mmol/L LAB CHEMISTRY METHOD 01/24/2025 1:37 PM EDT [facility] Anion Gap 8 3 - 11 LAB CHEMISTRY METHOD 01/24/2025 1:37 PM T [facility] Glucose 91 70 - 100 mg/dL [...] unit/L LAB CHEMISTRY METHOD 01/24/2025 1:37 PM [facility] LAB ALT (SGPT) 67(H) 10 - 60 unit/L LAB CHEMISTRY METHOD 01/24/2025 1:37 PM [facility] Alkaline Phosphatase 108 42 - 121 unit/L LAB CHEMISTRY METHOD 01/24/2025 1:37 PM [facility] Total Protein 6.6 6.0 - 8.0 g/dL LAB CHEMISTRY METHOD 01/24/2025 1:37 PM [facility] Albumin 3.4 3.2 - 5.0 g/dL LAB CHEMISTRY METHOD 01/24/2025 1:37 PM [facility] Total Bilirubin 0.3 0.0 - 1.4 mg/dL LAB CHEMISTRY METHOD 01/24/2025 1:37 PM [facility] Blood Venous blood specimen / Unknown Venipuncture / Unknown 01/24/2025 9:25 AM EDT 01/24/2025 11:22 AM EDT us Courtney Roger MD LAB BLOOD ORDERABLES Fin al Result [facility] [address] [place] [address], * (ABNORMAL) Complete blood count (01/24/2025 9:25 AM EDT) [facility] WBC 8.8 4.8 - 10.8 K/mcL LAB HEMETOLOGY [facility] RBC 3.70(L) 3.80 - 4.80 M/mcL LAB HEMETOLOGY METHOD 01/24/2025 12:19 PM [facility] Hemoglobin 12.4 11.5 - 16.0 g/dL LAB HEMETOLOGY METHOD 01/24/2025 12:19 PM [facility] Hematocrit 37.7 35.0 - 47.0 % LAB HEMETOLOGY METHOD 01/24/2025 12:19 PM [facility] LAB MCV 102.7(H) 79.0 - 98.0 FL LAB HEMETOLOGY METHOD 01/24/2025 12:19 PM [facility] LAB MCH 33.8(H) 27.0 - 32.0 pcg LAB HEMETOLOGY METHOD 01/24/2025 12:19 PM EDT [facility] MCHC 32.9 32.0 - 37.0 g/dL LAB HEMETOLOGY METHOD 01/24/2025 12:19 PM [facility] RDW 12.7 11.0 - 15.0 % LAB HEMETOLOGY METHOD 01/24/2025 12:19 PM [facility] Platelets 142 130 - 400 K/mcL LAB HEMETOLOGY METHOD 01/24/2025 12:19 PM EDT [facility] MPV 11.8(H) 7.0 - 11.0 FL LAB HEMETOLOGY METHOD 01/24/2025 12:19 PM EDT [facility] LAB NRBC 0.0 <1.0 % LAB [facility] METHOD 01/24/2025 12:19 PM EDT [facility] NRBC Absolute 0.00 <0.10 K/mcL LAB HEMETOLOGY METHOD 01/24/2025 12:19 PM EDT [facility] LAB Blood Venous blood specimen / Unknown Venipuncture / Unknown 01/24/2025 9:25 AM EDT 01/24/2025 11:22 AM EDT us Courtney Roger MD LAB BLOOD ORDERABLES Fin al Result [facility] [address] [place] [address], documented in this encounter Visit Diagnoses Diagnosis Anemia, unspecified Other disorders of electrolyte and fluid balance, not elsewhere classified documented in this encounter Care Teams Baking Assistant Relationship Specialty Start Date End Date Marc Longo MD [address] [place] [phone] PCP - General Internal Medicine 07/14/15 documented as of this encounter
--- OUTSIDE RECORDS SUMMARY | 2025-02-18 16:16 | XMS_ITS | Encounter Summary ---
Author Organization [employer] Address [address] [place] [address] Care Team Providers Care Manager Urology Name Role Phone Marc Longo MD Primary Care Provider [phone] Encounter Details Date Type Department Care Team (Late st Contact Info) Description 01/20/[address] [facility] - Main Lab 299 [facility] [place] [address] Courtney Roger MD [address] [phone] Anemia, unspecified; Other disorders of electrolyte and [...] 10:30 AM EDT Office Visit Adult Medicine [address] [phone] Marc Longo MD [address] [place] [address] 02/24/2025 1:00 PM EDT Appointment [facility] CT Scan [address] [place] [phone] 02/25/2025 8:45 AM EDT Office Visit General Surgery [facility] [address] [phone] Sebastian Sanabria MD [address] [address] 03/10/2025 10:00 AM EDT Office Visit Adult [facility] [address] [place] [address] Toshia Garcia PA [address] [place] [address] 06/21/2025 1:30 PM EDT Office Visit [facility] Hematology Oncology [address] [place] [phone] Heide Covarrubias MD [address] [place] [address] documented as of this encounter Procedures Procedure [...] mmol/L LAB CHEMISTRY METHOD 01/20/2025 9:50 AM [facility] LAB Potassium 4.5 3.5 - 5.5 mmol/L LAB CHEMISTRY METHOD 01/20/2025 9:50 AM [facility] LAB Chloride 102 96 - 110 mmol/L LAB CHEMISTRY METHOD 01/20/2025 9:50 AM [facility] CO2 32 21 - 32 mmol/L LAB CHEMISTRY METHOD 01/20/2025 9:50 AM [facility] LAB Anion Gap 5 3 - 11 LAB CHEMISTRY METHOD 01/20/2025 9:50 AM [facility] Glucose 113(H) 70 - 100 mg/dL LAB CHEMISTRY METHOD 01/20/2025 9:50 AM [facility] BUN 19 5 - 25 mg/dL LAB CHEMISTRY METHOD 01/20/2025 9:50 AM [facility] Creatinine 0.84 0.50 - 1.10 mg/dL LAB CHEMISTRY METHOD 01/20/2025 9:50 AM [facility] LAB eGFR 83 >=60 mL/min/1. 73m2 LAB CHEMISTRY METHOD 01/20/2025 9:50 AM [facility] LAB Comment:Calculation based on the??Chronic Kidney Disease Epidemiology Collaboration (CKD-EPI) equation refit??without adjustment for race. BUN/Creatinine Ratio 22.6 LAB CHEMISTRY METHOD 01/20/2025 9:50 AM [facility] Calcium 9.3 8.5 - 10.5 mg/dL LAB CHEMISTRY METHOD 01/20/2025 9:50 AM [facility] AST (SGOT) 18 10 - 42 unit/L LAB CHEMISTRY METHOD 01/20/2025 9:50 AM [facility] ALT (SGPT) 96(H) 10 - 60 unit/L LAB CHEMISTRY METHOD 01/20/2025 9:50 AM [facility] Alkaline Phosphatase 123(H) 42 - 121 unit/L LAB CHEMISTRY METHOD 01/20/2025 9:50 AM [facility] Total Protein 5.9(L) 6.0 - 8.0 g/dL LAB CHEMISTRY METHOD 01/20/2025 9:50 AM [facility] Albumin 3.0(L) 3.2 - 5.0 g/dL LAB CHEMISTRY METHOD 01/20/2025 9:50 AM [facility] Total Bilirubin 0.4 0.0 - 1.4 mg/dL LAB CHEMISTRY METHOD 01/20/2025 9:50 AM [facility] Blood Venous blood specimen / Unknown Venipuncture / Unknown 01/20/2025 6:13 AM EDT 01/20/2025 8:56 AM EDT Courtney Roger MD LAB BLOOD ORDERABLES Fin al Result [facility] [address] [place] [address], * (ABNORMAL) Complete blood count (01/20/2025 6:13 AM EDT) WBC 4.8 4.8 - 10.8 K/mcL LAB HEMETOLOGY METHOD 01/20/2025 9:34 AM [facility] RBC 3.80 3.80 - 4.80 M/mcL LAB HEMETOLOGY METHOD 01/20/2025 9:34 AM [facility] Hemoglobin 12.9 11.5 - 16.0 g/dL LAB HEMETOLOGY METHOD 01/20/2025 9:34 AM [facility] Hematocrit 38.3 35.0 - 47.0 % LAB HEMETOLOGY METHOD 01/20/2025 9:34 AM [facility] LAB MCV 101.6(H) 79.0 - 98.0 FL LAB HEMETOLOGY METHOD 01/20/2025 9:34 AM [facility] LAB MCH 34.2(H) 27.0 - 32.0 pcg LAB HEMETOLOGY METHOD 01/20/2025 9:34 AM [facility] LAB MCHC 33.7 32.0 - 37.0 g/dL LAB HEMETOLOGY METHOD 01/20/2025 9:34 AM [facility] RDW 12.2 11.0 - 15.0 % LAB HEMETOLOGY METHOD 01/20/2025 9:34 AM [facility] LAB Platelets 81(L) 130 - 400 K/mcL LAB HEMETOLOGY METHOD 01/20/2025 9:34 AM EDT [facility] LAB Comment:previously verified by slide MPV 12.0(H) 7.0 - 11.0 FL LAB HEMETOLOGY METHOD 01/20/2025 9:34 AM EDT [facility] NRBC 0.0 <1.0 % LAB HEMETOLOGY METHOD 01/20/2025 9:34 AM EDT [facility] NRBC Absolute 0.00 <0.10 K/mcL LAB HEMETOLOGY METHOD 01/20/2025 9:34 AM EDT [facility] Blood Venous blood specimen / Unknown Venipuncture / Unknown 01/20/2025 6:13 AM EDT 01/20/2025 8:56 AM EDT Courtney Roger MD LAB BLOOD ORDERABLES Fin al Result [facility] [address] [place] [address], documented in this encounter Visit Diagnoses Diagnosis Anemia, unspecified Other disorders of electrolyte and fluid balance, not elsewhere classified documented in this encounter Care Teams Manager Urology Relationship Specialty Start Date End Date Marc Longo MD [address] [place] [id number] PCP - General Internal Medicine 07/14/15 documented as of this encounter
--- OUTSIDE RECORDS SUMMARY | 2025-02-18 16:17 | XMS_ITS | Encounter Summary ---
Author Organization [employer] Address [address] [place] [address] Care Team Providers Care Disaster Recovery Coordinator Name Role Phone Marc Longo MD Primary Care Provider [phone] Reason for Visit * Reason Onset Date Comments Provider Call Back 01/28/2025 Mental Health Problem 01/28/2025 Encounter Details Date Type Department Care Team (Late st Contact Info) Description 01/28/2025 Telephone Adult Medicine [address] [phone] Marc Longo MD [address] [place] [phone] Provider Call Back; Mental Health Problem Social History Tobacco Use Types Packs/Day Years [...] Entry Date Author Yes 01/14/2025 6:15 AM Sandoval Whittaker RN documented in this encounter Progress Notes * Marc Longo MD - 02/07/2025 6:30 PM EDT Called mother pt was having pain and was doing self harm and was hitting herself Pt had bruised face pt was noticed to be doing this while in the hospital for a prolapsed rectum 01/11/2025 pt had a psych eval and was admitted to the psych sim x 2 days upon d.c from psych pt went to medicine Pt is now s/p colostomy 01/14/2025 Pt then was tx rehab, pt was at rehab mom was rude to a doctor, but the doctor file a compliant andthe ambulance was then sent to [facility] to psych sim. Pt is being picked up tomorrow and pt will be going home tomw pt is to f/u with surgeon 02/17/2025 Pt has hospital f/u 02/24/2025 @ 10:30A Pt has follow up with psychiatrist 03/03/2025 Dr. Colin Pt has DDS tax manager Pt follows with therapist does no have a follow up appointment * Carmen Barroso MA - 02/04/2025 2:[address] Longo Please message below. The patient's mother is calling due to patient being admitted into [facility] Psych home. She stated if possible to have Marc Longo MD to call the patient at location to maybe touch base and ease the patient due to abandonment feeling and feels that Marc Longo MD empathy for the patient can ease her. The mother provided the phone number of [phone] and states that Marc Longo MD or anyone can ask for the patient directly at that phone line. Please Advise. * Kia Del Real - 01/28/2025 2:44 PM EDT The patient's mother is calling due to patient being admitted into [facility] Psych [facility]. She stated if possible to have Marc Longo MD to call the patient at location to maybe touch base and ease the patient due to abandonment feeling and feels that Macr Longo MD empathy for the patient can ease her. The mother provided the phone number of [phone] and states that Marc Longo MD or anyone can ask for the patient directly at that phone line. Please Advise. documented in this encounter Plan of Treatment Upcoming Encounters Date Type Department Care Team (Late st Contact Info) Description 02/24/2025 10:30 AM EDT Office Visit Adult Medicine [facility] [address] [place] [phone] Marc Longo MD [address] [place] [address] 02/24/2025 1:00 PM EDT Appointment [facility] CT Scan [address] [place] [phone] 02/25/2025 8:45 AM EDT Office Visit General Surgery [facility] [address] [phone] Sebastian Sanabria MD [address] [address] 03/10/2025 10:00 AM EDT Office Visit Adult Medicine [facility] [address] [place] [phone] Toshia Garcia PA [address] [place] [address] 06/21/2025 1:30 PM EDT Office Visit [facility] Hematology Oncology [address] [place] [phone] Heide Covarrubias MD [address] [place] [address] documented as of this encounter Visit Diagnoses Not on filedocumented in this encounter Care Teams Disaster Recovery Coordinator Relationship Specialty Start Date End Date Marc Longo MD [address] [place] [address] PCP - General Internal Medicine 07/14/15 documented as of this encounter
--- OUTSIDE RECORDS SUMMARY | 2025-02-18 16:17 | XMS_ITS | Clinical Summary ---
Author Organization [address] Address [address] [place] [phone] Phone Care Team Providers Care Coil Finisher Name Role Phone Marc Longo MD Primary Care Provider [phone] Allergies Active Allergy Reactions Criticality Noted Date Comments Aspirin 04/20/2007 Rash; NOT ALLERGIC PER PATIENT Azithromycin Swelling 09/18/2015 Carisoprodol 07/21/2007 Codeine 11/17/2007 Gi upset Diazepam 04/20/2007 Valium gi upset,vom Gabapentin 07/29/2014 nausea Horse Dander 04/20/2007 Horse Serum animal Morphine Sulfate 04/20/2007 gi upset,vom Opium Tincture 02/02/2018 Oxycodone-Acetaminophen 04/20/2007 gi upset [id number] 08/01/2017 Moviprep [Wdsaawwwq-p-lwy-peg-na Wwimbc-[id number]] Prednisone 02/29/2016 nausea Propoxyphene Other 12/10/2007 Cannot take d/t to depression meds Propoxyphene N-Acetaminophen 06/25/2010 Medications busPIRone (BUSPAR) 15 mg tablet Take 1 Tab by mouth 3 times daily. 11/15/19 21 Active risperiDONE (RisperDAL) 0.5 mg tablet Take 1 Tab by mouth at bedtime. 03/10/20 19 Active sertraline (ZOLOFT) 100 mg tablet Take 1.5 tablets (150 mg total) by mouth 1 (one) time each day. 04/06/20 19 Active traZODone (DESYREL) 100 mg tablet Take [...] same time for 14 doses. 01/20/20 25 Active amLODIPine (NORVASC) 5 mg tablet Take 1 tablet (5 mg total) by mouth 1 (one) time each day. 01/20/20 25 Active folic acid (FOLVITE) 1 mg tablet TAKE 1 TABLET BY MOUTH ONCE DAILY 90 tablet 02/02/20 25 Active dicyclomine (BENTYL) 10 mg capsule TAKE 1 CAPSULE BY MOUTH two (2) times a day WITH MEALS AND AT BEDTIME 90 capsule 02/02/20 Active dicyclomine (BENTYL) 10 mg capsule Twice a day with meals and at bed time 07/29/20 025 Discontinued folic acid (FOLVITE) 1 mg tablet Take 1 Tablet by mouth daily. 07/29/20 025 Discontinued polyethylene glycol (MIRALAX) 17 gram packet Take 17 g by mouth 1 (one) time each day for 10 days. 01/21/20 025 docusate sodium (COLACE) 100 mg capsule Take 2 capsules (200 mg total) by mouth 2 (two) times a day for 10 days. 0 01/20/20 025 HYDROmorphone (DILAUDID) 2 mg tabletIndicati ons:Self-injur ious behavior,Recta l prolapse,Throm bocytopenia ([facility] V24) Take 1 tablet (2 mg total) by mouth every 4 (four) hours if needed for severe pain for up to 3 days. Max Daily Amount: 12 mg 10 tablet 01/20/20 025 Active Problems Problem Noted Date Diagnosed Date Constipation, chronic 04/16/2024 Chronic low back pain 02/07/2022 CKD (chronic kidney disease) stage 3, GFR 30-59 ml/min ([facility] V24, [facility] V28) 11/15/2020 Marijuana abuse 11/14/2020 Thrombocytopenia ([facility] V24) 10/25/2019 Insomnia 07/16/2017 Resolved Problems Problem Noted Date Diagnosed Date Resolved Date Diarrhea 01/14/2025 01/19/2025 Rectal prolapse 04/16/2024 01/19/2025 Encounters Date Type Department Care Team Description 02/13/2025 Lab Requisition [facility] - Main Lab [address] [facility] [place] [phone] Courtney Roger MD Anemia, unspecified; Other disorders of electrolyte and fluid balance, not elsewhere classified 02/10/2025 Nurse Triage Adult Medicine [address] [phone] Marc Longo MD 02/10/[address] [phone] Hilda Knight RN 02/10/[address] [phone] Marc Longo MD triage 02/09/[address] [phone] Marc Longo MD vna 02/07/[address] [phone] Marc Longo MD Hospital Follow-up 02/05/2025 Lab Requisition [facility] Lab [address] [place] [phone] Courtney Roger MD Anemia, unspecified; Other disorders of electrolyte and fluid balance, not elsewhere classified 01/28/[address] [phone] Marc Longo MD Provider Call Back; Mental Health Problem 01/28/2025 Lab Requisition [facility] Lab [address] [place] [phone] Courtney Roger MD Anemia, unspecified; Other disorders of electrolyte and fluid balance, not elsewhere classified 01/23/2025 Lab Requisition [facility] [address] [place] [phone] Courtney Roger MD Anemia, unspecified; Other disorders of electrolyte and fluid balance, not elsewhere classified 01/20/2025 Lab Requisition [facility] [address] [place] [phone] Courtney Roger MD Anemia, unspecified; Other disorders of electrolyte and fluid balance, not elsewhere classified 01/19/[address] [phone] Marc Longo MD Advice Only 01/14/2025 1:20 PM EDT - 01/14/2025 3:50 PM EDT Surgery [facility] OR [address] [place] [phone] Sebastian Sanabria MD LAPAROSCOPIC LOW ANTERIOR RESECTION W/ COLOSTOMY CREATION 01/14/2025 1:14 PM EDT Anesthesia Event [facility] OR [address] [place] [phone] Jovi Hernandez DO Chang, Ling, CRNA 01/12/2025 6:48 AM EDT - 01/19/2025 4:39 PM EDT Hospital Encounter [facility] Urology Unit [address] [place] [phone] Jorge Singh MD Garvin, MD Rodger Sullivan Mark A, MD Cheng, Ting Ho Danny, DO Landry, Jonathan P, MD Flores, Carlos M, MD Santoyo-Pacheco, Omar D, MD Japaridze, Anna, MD Colitis (Primary Dx); Periorbital hematoma of left eye; Self-injurious behavior; Rectal prolapse; Diarrhea; Thrombocytopenia ([facility] V24) Discharge Disposition: Jail Facility 12/14/2024 Telephone Adult Medicine [address] [phone] Amy Gamez, JUSTIN Faxed Order ([facility] order# [id number]) from Last 3 Months Immunizations Name Administration Dates Next Due Td Tetanus diptheria (Tdvax) 7yo and older 11/19 Tdap Tetanus diptheria acell ular pertussis (Boostrix; Adacel) 7yo and older 06/07/2008 Surgical History Surgery Date Site/Laterality Comments BACK SURGERY 1996 PROCEDURE: HISTORICAL BACK SURGERY; COMMENT: multiple back procedures ESOPHAGOGASTRODUODENOSCOPY 08/01/2008 PROCEDURE: ME EGD TRANSORAL BIOPSY SINGLE/MULTIPLE; COMMENT: duodenal bx: wnl COLONOSCOPY W/ BIOPSIES 08/01/2008 PROCEDURE: ME COLONOSCOPY W/BIOPSY SINGLE/MULTIPLE; COMMENT: colonic bx: wnl TUBAL LIGATION 2002 PROCEDURE: HISTORICAL TUBAL LIGATION ENDOMETRIAL ABLATION 05/25/2010 PROCEDURE: ME ENDOMETRIAL ABLTJ THERMAL W/O HYSTEROSCOPIC GUID; COMMENT: [...] 10:30 AM EDT Office Visit Adult Medicine [facility] [address] [place] [phone] Marc Longo MD [address] [place] [phone] 02/24/2025 1:00 PM EDT Appointment [facility] CT Scan [address] [place] [phone] 02/25/2025 8:45 AM EDT Office Visit General Surgery - [place] [address] [phone] Sebastian Sanabria MD [address] [address] 03/10/2025 10:00 AM EDT Office Visit Adult Medicine [facility] [address] [place] [phone] Toshia Garcia PA [address] [place] [address] 06/21/2025 1:30 PM EDT Office Visit [facility] Hematology Oncology [address] [place] [phone] Heide Covarrubias MD [address] [place] [address] Health Maintenance Due Date Last Done Comments [...] history exists Hypertension/CHF/CAD Annual BMP Blood Test 02/11/2026 02/11/2025, 01/24/2025, 01/20/2025, Additional history exists Cholesterol Screening (Lipid Panel) [...] Procedure Name Priority Date/Time Associated Diagnosis Comments URINALYSIS WITH REFLEX MICROSCOPIC Routine 02/11/2025 8:31 AM EDT Dysuria Urinary frequency URINALYSIS WITH REFLEX MICROSCOPIC Routine 02/11/2025 8:31 AM EDT Dysuria Urinary frequency BASIC METABOLIC PANEL Routine 02/11/2025 8:31 AM EDT Urinary frequency CULTURE URINE Routine 02/11/2025 8:31 AM EDT Dysuria Urinary frequency COMPREHENSIVE METABOLIC PANEL Routine 01/24/2025 9:25 AM [...] AND DIFFERENTIAL STAT 01/12/2025 6:44 AM EDT COLONOSCOPY Routine 04/01/2024 SCREENING MAMMOGRAPHY BI 2-VIEW BREAST INC CAD Routine 12/23/2023 1:58 PM EDT Encounter for screening mammogram for malignant neoplasm of breast LIPID PANEL Routine 11/26/2023 PAP SMEAR Routine 12/29/2015 HIV SCREENING Routine 06/26/2009 from Last 3 Months or Most Recently Relevant to Health Maintenance Results * (ABNORMAL) Urinalysis with reflex microscopic (02/11/2025 8:31 AM EDT) Pathologist [facility] Specific [place] Urine 1.015 1.003 - 1.030 LAB URINALYSIS - AUTOMATED METHOD 02/11/2025 10:40 AM [facility] pH, Urine 6.0 5.0 - 8.0 pH LAB URINALYSIS - AUTOMATED METHOD 02/11/2025 10:40 AM [facility] Leukocytes, Urine Moderate(A) Negative LAB URINALYSIS - AUTOMATED METHOD 02/11/2025 10:40 AM [facility] Nitrite, Urine Negative Negative LAB URINALYSIS - AUTOMATED METHOD 02/11/2025 10:40 AM [facility] Protein, Urine Negative <=Trace mg/dL LAB URINALYSIS - AUTOMATED METHOD 02/11/2025 10:40 AM [facility] Glucose, Urine Negative Negative mg/dL LAB URINALYSIS - AUTOMATED METHOD 02/11/2025 10:40 AM [facility] Ketones, Urine Negative Negative mg/dL LAB URINALYSIS - AUTOMATED METHOD 02/11/2025 10:[address] [facility] Urobilinogen , Urine 0.2 0.2 - 1.0 mg/dL LAB URINALYSIS - AUTOMATED METHOD 02/11/2025 10:[address] [facility] Bilirubin, Urine Negative Negative LAB URINALYSIS - AUTOMATED METHOD 02/11/2025 10:[address] [facility] Blood, Urine Negative Negative LAB URINALYSIS - AUTOMATED METHOD 02/11/2025 10:[address] [facility] RBC, Urine 1 0 - 4 /HPF [facility] WBC, Urine 4 0 - 4 /HPF 02/11/2025 10:[facility] Squamous Epithelial, Urine 10 0 - 60 /LPF 02/11/2025 10:[facility] Bacteria, Urine Negative Negative /HPF 02/11/2025 10:40 AM [facility] Hyaline Casts, Urine 0 0 - 3 /LPF 02/11/2025 10:40 AM [facility] Urine Urine specimen obtained by clean catch procedure / Unknown Non-blood Collection / Unknown 02/11/2025 8:31 AM EDT 02/11/2025 8:[address] [facility] - 02/11/2025 10:40 AM EDT Short sample received. Microscopic performed on unspun urine. Interpret results accordingly. us Marc Longo MD LAB URINE ORDERABLES Final Resu lt [facility] [address] [place] [address], * Culture urine (02/11/2025 8:31 AM EDT) Culture, Urine 50,000-99,000 CFU/mL Mixed urogenital gely, no uropathogens present. Suggest repeat specimen if clinically indicated. 02/12/2025 8:51 AM [facility] Urine Urine specimen obtained by clean catch procedure / Unknown Non-blood Collection / Unknown 02/11/2025 8:31 AM EDT 02/11/2025 8:31 AM EDT us Marc Longo MD LAB MICROBIOLOGY - GENERAL EARL URIBE Final Result [facility] [address] [place] [address], [place] [phone] * (ABNORMAL) Basic metabolic panel (02/11/2025 8:31 AM EDT) Only the most recent of5 resultswithin the time period is included. [facility] Sodium 140 133 - 145 mmol/L LAB CHEMISTRY METHOD 02/11/2025 11:03 AM [facility] Potassium 4.3 3.5 - 5.5 mmol/L LAB CHEMISTRY METHOD 02/11/2025 11:03 AM [facility] Chloride 107 96 - 110 mmol/L LAB CHEMISTRY METHOD 02/11/2025 11:03 AM [facility] CO2 27 21 - 32 mmol/L LAB CHEMISTRY METHOD 02/11/2025 11:03 AM [facility] Anion Gap 6 3 - 11 LAB CHEMISTRY METHOD 02/11/2025 11:03 AM [facility] Glucose 99 70 - 100 mg/dL LAB CHEMISTRY METHOD 02/11/2025 11:03 AM [facility] BUN 33(H) 5 - 25 mg/dL LAB CHEMISTRY METHOD 02/11/2025 11:03 AM [facility] Creatinine 1.16(H) 0.50 - 1.10 mg/dL LAB CHEMISTRY METHOD 02/11/2025 11:[address] [facility] eGFR 56(L) >=60 mL/min/1. 73m2 LAB CHEMISTRY METHOD 02/11/2025 11:[address] [facility] Comment:Calculation based on the Chronic Kidney Disease Epidemiology Collaboration (CKD-EPI) equation refit without adjustment for race. BUN/Creatinine Ratio 28.4 LAB CHEMISTRY METHOD 02/11/2025 11:[address] [facility] Calcium 9.0 8.5 - 10.5 mg/dL LAB CHEMISTRY METHOD 02/11/2025 11:[address] [facility] Blood Venous blood specimen / Unknown Venipuncture / Unknown 02/11/2025 8:31 AM EDT 02/11/2025 8:31 AM EDT us Marc Longo MD LAB BLOOD ORDERABLES Final Resu lt [facility] [address] [place] [address], * (ABNORMAL) Complete blood count (01/24/2025 9:25 AM EDT) Only the most recent of2 resultswithin the time period is included. WBC 8.8 4.8 - 10.8 K/mcL LAB HEMETOLOGY METHOD 01/24/2025 12:[address] [facility] RBC 3.70(L) 3.80 - 4.80 M/mcL LAB HEMETOLOGY METHOD 01/24/2025 12:[address] [facility] Hemoglobin 12.4 11.5 - 16.0 g/dL LAB HEMETOLOGY METHOD 01/24/2025 12:19 PM [facility] Hematocrit 37.7 35.0 - 47.0 % LAB HEMETOLOGY METHOD 01/24/2025 12:[address] [facility] MCV 102.7(H) 79.0 - 98.0 FL LAB HEMETOLOGY METHOD 01/24/2025 12:[address] [facility] MCH 33.8(H) 27.0 - 32.0 pcg LAB HEMETOLOGY METHOD 01/24/2025 12:[address] [facility] MCHC 32.9 32.0 - 37.0 g/dL LAB HEMETOLOGY METHOD 01/24/2025 12:[address] [facility] RDW 12.7 11.0 - 15.0 % LAB HEMETOLOGY METHOD 01/24/2025 12:[address] [facility] Platelets 142 130 - 400 K/mcL LAB HEMETOLOGY METHOD 01/24/2025 12:[address] [facility] MPV 11.8(H) 7.0 - 11.0 FL LAB HEMETOLOGY METHOD 01/24/2025 12:[address] [facility] NRBC 0.0 <1.0 % LAB HEMETOLOGY METHOD 01/24/2025 12:[address] [facility] NRBC Absolute 0.00 <0.10 K/mcL LAB HEMETOLOGY METHOD 01/24/2025 12:[address] [facility] Blood Venous blood specimen / Unknown Venipuncture / Unknown 01/24/2025 9:25 AM EDT 01/24/2025 11:22 AM EDT us Courtney Roger MD LAB BLOOD ORDERABLES Fin al Result [facility] [address] [place] [address], * (ABNORMAL) Comprehensive metabolic panel (01/24/2025 9:25 AM EDT) Only the most recent of4 resultswithin the time period is included. [facility] Sodium 140 133 - 145 mmol/L LAB CHEMISTRY METHOD 01/24/2025 1:37 PM [facility] Potassium 4.3 3.5 - 5.5 mmol/L LAB CHEMISTRY METHOD 01/24/2025 1:37 PM [facility] Chloride 104 96 - 110 mmol/L LAB CHEMISTRY METHOD 01/24/2025 1:37 PM [facility] CO2 28 21 - 32 mmol/L LAB CHEMISTRY METHOD 01/24/2025 1:37 PM [facility] Anion Gap 8 3 - 11 LAB CHEMISTRY METHOD 01/24/2025 1:37 PM [facility] Glucose 91 70 - 100 mg/dL LAB CHEMISTRY METHOD 01/24/2025 1:37 PM [facility] BUN 30(H) 5 - 25 mg/dL LAB CHEMISTRY METHOD 01/24/2025 1:37 PM [facility] Creatinine 0.94 0.50 - 1.10 mg/dL LAB CHEMISTRY METHOD 01/24/2025 1:37 PM [facility] eGFR 73 >=60 mL/min/1. 73m2 LAB CHEMISTRY METHOD 01/24/2025 1:37 PM [facility] Comment:Calculation based on the??Chronic Kidney Disease Epidemiology Collaboration (CKD-EPI) equation refit??without adjustment for race. BUN/Creatinine Ratio 31.9 LAB CHEMISTRY METHOD 01/24/2025 1:37 PM [facility] Calcium 9.7 8.5 - 10.5 mg/dL LAB CHEMISTRY METHOD 01/24/2025 1:37 PM [facility] AST (SGOT) 37 10 - 42 unit/L LAB CHEMISTRY METHOD 01/24/2025 1:37 PM [facility] ALT (SGPT) 67(H) 10 - 60 unit/L LAB CHEMISTRY METHOD 01/24/2025 1:37 PM [facility] Alkaline Phosphatase 108 42 - 121 unit/L LAB CHEMISTRY METHOD 01/24/2025 1:[address] [facility] Total Protein 6.6 6.0 - 8.0 g/dL LAB CHEMISTRY METHOD 01/24/2025 1:[address] [facility] Albumin 3.4 3.2 - 5.0 g/dL LAB CHEMISTRY METHOD 01/24/2025 1:[address] [facility] Total Bilirubin 0.3 0.0 - 1.4 mg/dL LAB CHEMISTRY METHOD 01/24/2025 1:[address] [facility] Blood Venous blood specimen / Unknown Venipuncture / Unknown 01/24/2025 9:25 AM EDT 01/24/2025 11:22 AM EDT us Courtney Roger MD LAB BLOOD ORDERABLES Fin al Result [facility] [address] [place] [address], [place] [phone] * ECG 12 lead (01/18/2025 9:38 AM EDT) Only the most recent of3 resultswithin the time period is included. Ventricular Rate ECG 67 BPM GEMUSE Atrial Rate 67 BPM GEMUSE P-R Interval 176 ms GEMUSE QRS Duration 76 ms GEMUSE Q-T Interval 404 ms GEMUSE QTc 426 ms GEMUSE P Wave [place] 25 degrees GEMUSE R [place] 68 degrees GEMUSE T [place] 23 degrees GEMUSE ECG Interpretation Normal sinus [...] LAB HEMETOLOGY METHOD 01/18/2025 7:[address] [facility] RBC 3.40(L) 3.80 - 4.80 M/mcL LAB HEMETOLOGY METHOD [facility]2025 [facility] Hemoglobin 11.8 11.5 - 16.0 g/dL LAB HEMETOLOGY METHOD 01/18/2025 7:30 [facility] Hematocrit 34.4(L) 35.0 - 47.0 % LAB HEMETOLOGY METHOD 01/18/2025 7:30 [facility] MCV 102.1(H) 79.0 - 98.0 FL LAB HEMETOLOGY METHOD 01/18/2025 7:30 [facility] MCH 35.0(H) 27.0 - 32.0 pcg LAB HEMETOLOGY METHOD 01/18/2025 7:30 [facility] MCHC 34.3 32.0 - 37.0 g/dL LAB HEMETOLOGY METHOD 01/18/2025 7:30 [facility] RDW 12.2 11.0 - 15.0 % LAB HEMETOLOGY METHOD 01/18/2025 7:30 AM [facility] Platelets 66(L) 130 - 400 K/mcL LAB HEMETOLOGY METHOD 01/18/2025 7:30 AM [facility] Comment:previously verified by slide MPV 11.6(H) 7.0 - 11.0 FL LAB HEMETOLOGY METHOD 01/18/2025 7:30 [facility] NRBC 0.0 <1.0 % LAB HEMETOLOGY METHOD 01/18/2025 7:[address] [facility] NRBC Absolute 0.00 <0.10 K/mcL LAB HEMETOLOGY METHOD 01/18/2025 7:30 [facility] Neutrophils Relative 66.5 % LAB HEMETOLOGY METHOD 01/18/2025 7:30 [facility] Lymphocytes Relative 21.9 % LAB HEMETOLOGY METHOD 01/18/2025 7:30 [facility] Monocytes Relative 9.1 % LAB HEMETOLOGY METHOD 01/18/2025 7:30 [facility] Eosinophils Relative 1.5 % LAB HEMETOLOGY METHOD 01/18/2025 7:30 [facility] Basophils Relative 0.4 % LAB HEMETOLOGY METHOD 01/18/2025 7:30 AM [facility] Immature Granulocytes Relative 0.6 % LAB HEMETOLOGY METHOD 01/18/2025 7:30 AM [facility] Neutrophils Absolute 3.58 1.50 - 7.00 K/mcL LAB HEMETOLOGY METHOD 01/18/2025 7:30 AM [facility] Lymphocytes Absolute 1.18 1.00 - 5.00 K/mcL LAB HEMETOLOGY METHOD 01/18/2025 7:30 [facility] Monocytes Absolute 0.49 0.20 - 1.00 K/mcL LAB HEMETOLOGY METHOD 01/18/2025 7:30 AM [facility] Eosinophils Absolute 0.08 0.00 - 0.50 K/mcL LAB HEMETOLOGY METHOD 01/18/2025 7:30 AM [facility] Basophils Absolute 0.02 0.00 - 0.20 K/mcL LAB HEMETOLOGY METHOD 01/18/2025 7:[address] [facility] Immature Granulocytes Absolute 0.03 0.00 - 0.03 K/mcL LAB HEMETOLOGY METHOD 01/18/2025 7:[address] [facility] Blood Venous blood specimen / Unknown Venipuncture / Unknown 01/18/2025 6:48 AM EDT 01/18/2025 7:08 AM EDT Tiera Louise MD LAB BLOOD ORDERABLES Final Res ult Performing Organization Address City/[facility]/ZIP Co de Phone Number [facility] [address] [place] [address], [place] [phone] * Magnesium (01/18/2025 6:48 AM EDT) Only the most recent of5 resultswithin the time period is included. Magnesium 2.0 1.9 - 2.6 mg/dL LAB CHEMISTRY METHOD 01/18/2025 12:[address] [facility] Blood Venous blood specimen / Unknown Venipuncture / Unknown 01/18/2025 6:48 AM EDT 01/18/2025 7:08 AM EDT Tiera Louise MD LAB BLOOD ORDERABLES Final Res ult Performing Organization Address City/[facility]/ZIP Co de Phone Number [facility] [address] [place] [address], [place] [phone] * Ammonia (01/18/2025 6:48 AM EDT) Ammonia 28 11 - 35 mcmol/L LAB CHEMISTRY METHOD 01/18/2025 7:[address] [facility] Blood Venous blood specimen / Unknown Venipuncture / Unknown 01/18/2025 6:48 AM EDT 01/18/2025 7:08 AM EDT us Tiera Louise MD LAB BLOOD ORDERABLES Final Res ult [facility] [address] [place] [address], [place] [phone] * (ABNORMAL) Hepatic function panel (01/18/2025 6:48 AM EDT) Only the most recent of3 resultswithin the time period is included. Total Protein 5.2(L) 6.0 - 8.0 g/dL LAB CHEMISTRY METHOD 01/18/2025 7:[address] [facility] Albumin 2.7(L) 3.2 - 5.0 g/dL LAB CHEMISTRY METHOD 01/18/2025 7:[address] [facility] Total Bilirubin 0.5 0.0 - 1.4 mg/dL LAB CHEMISTRY METHOD 01/18/2025 7:[address] [facility] Bilirubin, Direct 0.2 0.0 - 0.3 mg/dL LAB CHEMISTRY METHOD 01/18/2025 7:[address] [facility] Bilirubin, Indirect 0.3 0.0 - 1.1 mg/dL LAB CHEMISTRY METHOD 01/18/2025 7:[address] [facility] ALT (SGPT) 169(H) 10 - 60 unit/L LAB CHEMISTRY METHOD 01/18/2025 7:[address] [facility] AST (SGOT) 24 10 - 42 unit/L LAB CHEMISTRY METHOD 01/18/2025 7:[address] [facility] Alkaline Phosphatase 122(H) 42 - 121 unit/L LAB CHEMISTRY METHOD 01/18/2025 7:50 AM [facility] Blood Venous blood specimen / Unknown Venipuncture / Unknown 01/18/2025 6:48 AM EDT 01/18/2025 7:08 AM EDT Tiera Louise MD LAB BLOOD ORDERABLES Final Res ult [facility] [address] [place] [address], * Hepatitis B virus molecular study quantitative (01/17/2025 8:35 AM EDT) Hepatitis B Virus DNA Qualitative Not detected Not detected 01/19/2025 1:35 PM EDT [facility] Hepatitis B Virus DNA, Quantitative <10 <10 IU/mL 01/19/2025 1:35 PM EDT [facility] Log Hepatitis B Virus DNA <1.00 <1.00 Log (10) IU/mL 01/19/2025 1:35 PM EDT [facility] Comment: This procedure utilizes a real-time polymerase chain reaction test from [employer]. ??The amplification target is a conserved region [...] not rule out infection. Test performed at [facility], [address] , [place], [place] ??[address] ? [phone] Perla Herring MD, PhD - Delivery Clerk Blood Venous blood specimen / Unknown Venipuncture / Unknown 01/17/2025 8:35 AM EDT 01/17/2025 8:50 AM EDT us Tiera Louise MD LAB BLOOD ORDERABLES Final Res ult [facility] [address] [place] [address] * SST tube (01/17/2025 8:33 AM EDT) Only the most recent of2 resultswithin the time period is included. Pathologist [facility] Extra Tube Hold for add-ons. 01/17/2025 10:[address] [facility] Comment:Auto resulted. Blood Venous blood specimen / Unknown 01/17/2025 8:33 AM EDT 01/17/2025 8:51 AM EDT Tiera Louise MD LAB BLOOD ORDERABLES Final Res ult Performing Organization Address [facility] Co de Phone Number [facility] [address] [place] [address], [place] [phone] * (ABNORMAL) Phosphorus (01/17/2025 6:12 AM EDT) Only the most recent of2 resultswithin the time period is included. [facility] Phosphorus 2.4(L) 2.5 - 4.5 mg/dL LAB CHEMISTRY METHOD 01/17/2025 8:[address] [facility] Blood Venous blood specimen / Unknown Venipuncture / Unknown 01/17/2025 6:12 AM EDT 01/17/2025 7:32 AM EDT Sal Londono MD LAB BLOOD ORDERABLES F inal Result Performing Organization Address [facility] de Phone Number [facility] [address] [place] [address], [place] [phone] * (ABNORMAL) Urinalysis with reflex microscopic and culture (01/16/2025 4:42 AM EDT) Only the most recent of2 resultswithin the time period is included. Specific [place] Urine 1.015 1.003 - 1.030 LAB URINALYSIS - AUTOMATED METHOD 01/16/2025 6:[address] [facility] pH, Urine 6.0 5.0 - 8.0 pH LAB URINALYSIS - AUTOMATED METHOD 01/16/2025 6:[address] [facility] Leukocytes, Urine Trace(A) Negative LAB URINALYSIS - AUTOMATED METHOD 01/16/2025 6:01 AM [facility] Nitrite, Urine Negative Negative LAB URINALYSIS - AUTOMATED METHOD 01/16/2025 6:01 AM [facility] Protein, Urine 30(A) <=Trace mg/dL LAB URINALYSIS - AUTOMATED METHOD 01/16/2025 6:01 AM [facility] Glucose, Urine Negative Negative mg/dL LAB URINALYSIS - AUTOMATED METHOD 01/16/2025 6:01 AM [facility] Ketones, Urine Negative Negative mg/dL LAB URINALYSIS - AUTOMATED METHOD 01/16/2025 6:01 AM [facility] Urobilinogen , Urine 0.2 0.2 - 1.0 mg/dL LAB URINALYSIS - AUTOMATED METHOD 01/16/2025 6:01 AM [facility] Bilirubin, Urine Negative Negative LAB URINALYSIS - AUTOMATED METHOD 01/16/2025 6:01 AM [facility] Blood, Urine Trace(A) Negative LAB URINALYSIS - AUTOMATED METHOD 01/16/2025 6:01 AM [facility] RBC, Urine 2.5 0 - 4 /HPF LAB URINALYSIS - AUTOMATED METHOD 01/16/2025 6:01 AM [facility] WBC, Urine 7.5(H) 0 - 4 /HPF LAB URINALYSIS - AUTOMATED METHOD 01/16/2025 6:01 AM [facility] Squamous Epithelial, Urine 34 0 - 60 /LPF LAB URINALYSIS - AUTOMATED METHOD 01/16/2025 6:01 AM [facility] Crystals, Urine LT WOJCIECH PHOSPHATE /LPF LAB URINALYSIS - AUTOMATED METHOD 01/16/2025 6:01 AM [facility] Bacteria, Urine Negative Negative /HPF LAB URINALYSIS - AUTOMATED METHOD 01/16/2025 6:[address] [facility] Hyaline Casts, Urine 2.0 0 - 3 /LPF LAB URINALYSIS - AUTOMATED METHOD 01/16/2025 6:[address] [facility] Urine Urine specimen from urinary conduit / Unknown Non-blood Collection / Unknown 01/16/2025 4:42 AM EDT 01/16/2025 5:15 AM EDT Mala Barr [facility] URINE ORDERABLES Final Result Performing Organization Address [facility] Co de Phone Number [facility] [address] [place] [address], [place] [phone] * Phillip urine culture tube (01/16/2025 4:42 AM EDT) Only the most recent of2 resultswithin the time period is included. Extra Tube Hold for add-ons. 01/16/2025 7:[address] [facility] Comment:Auto resulted. Urine Urine specimen from urinary conduit / Unknown Non-blood Collection / Unknown 01/16/2025 4:42 AM EDT 01/16/2025 5:15 AM EDT Mala Barr [facility] URINE ORDERABLES Final Result Performing Organization Address [facility] Co de Phone Number [facility] [address] [place] [address], [place] [phone] * [place] Abdomen Limited (01/15/2025 7:28 AM [...] Signed Date: 01/15/2025 08:40 ET Workstation ID: [id number] Transcribed By: Self Edit Transcribed Date: 01/15/2025 [...] Signed Date: 01/15/2025 08:40 ET Workstation ID: [id number] Transcribed By: Self Edit Transcribed Date: 01/15/2025 [...] in vascular compromise. 01/18/2025 4:02 PM EDT [facility] Comment Pen Tender slide(s) from this case have been presented at Anatomic Pathology Intradepartmental Review Conference on 01/18/25. 01/18/2025 4:02 PM EDT [facility]) [facility] Gross Description A. Colon, Low [...] blue, distal black. Gross photographs are taken. Pen Tender sections are submitted as follows: 1, perpendicular proximal margin, one piece 2, perpendicular distal margin, one piece 3, transition to dusky area adjacent to distal margin, one piece 4, bisected mucosal polyp, two pieces 5 and 6, diverticula, one piece each LATOYA 01/18/2025 4:[address] [facility] Disclaimer Unless otherwise specified, all tissue is 10% NB formalin fixed and paraffin embedded. 01/18/2025 4:[address] [facility] Tissue Colon structure / Unknown 01/14/2025 3:33 PM EDT 01/17/2025 7:06 AM EDT us Sebastian Sanabria MD LAB PATHOLOGY ORDERABLES Fi nal Result [facility] [address] [place] [address], * TH AN ENDOTRACHEAL(NO CHARGE) (01/14/2025 1:38 PM EDT) Narrative Sofía Neumann CRNA - 01/14/2025 1:38 PM EDT Sofía Neumann CRNA ? 01/14/2025 ??1:38 PM General Information and Staff Patient location during procedure: OR Performed by: Sofía Neumann CRNA Authorized by: Jovi Hernandez DO ?? Intubation Airway not difficult Urgency: elective Final Airway Details Successful airway: ETT Cuffed: yes Successful intubation technique: video laryngoscopy Facilitating devices/methods: intubating stylet Endotracheal tube insertion site: oral Blade: Racihd Blade size: #3 ETT size (mm): 7.0 [...] 01/14/2025 1:24 PMStop Time: 01/14/2025 1:24 PM Jovi Hernandez DO ANESTHESIA ORDERABLES Final Res ult * MAGEN IFA with titer and pattern (01/14/2025 1:00 PM EDT) MAGEN Negative Negative 01/17/2025 2:[address] [facility] Blood Venous blood specimen / Unknown Venipuncture / Unknown 01/14/2025 1:00 PM EDT 01/14/2025 1:19 PM EDT Mala Barr [place] LAB BLOOD ORDERABLES Final Result Performing Organization Address [facility]/ZIP Co de Phone Number [facility] [address] [place] [address], [place] [phone] * Mononucleosis screen (01/14/2025 1:00 PM EDT) [facility] Monospot Negative Negative 01/14/2025 2:[address] [facility] Blood Venous blood specimen / Unknown Venipuncture / Unknown 01/14/2025 1:00 PM EDT 01/14/2025 1:19 PM EDT Mala Barr [place] LAB BLOOD ORDERABLES Final Result [facility] [address] [place] [address], [place] [phone] * Herpes simplex virus 1 and 2 molecular study, qualitative (01/14/2025 12:58 PM EDT) [facility] Specimen Source Blood - EDTA 01/17/2025 11:06 AM EDT [facility] Herpes simplex Virus I Not detected Not detected 01/17/2025 11:06 AM EDT [facility] Herpes simplex Virus II Not detected Not detected 01/17/2025 11:06 AM EDT [facility] Comment: This test utilizes a real-time polymerase [...] characteristics of this procedure were determined by [facility]. This test is performed pursuant to a license agreement with [employer] Test performed at [facility], [address], [place] ??[address] ? [phone] Perla Herring MD, PhD - Delivery Clerk Blood Venous blood specimen / Unknown Venipuncture / Unknown 01/14/2025 12:58 PM EDT 01/14/2025 1:19 PM EDT Mala Barr [place] LAB MICROBIOLOGY - GENERAL ORDERABLES Final Result Performing Organization Address City/[facility]/ZIP Co de Phone Number [facility] [address], [place] [id number] * Smooth muscle antibody IgG (01/14/2025 12:58 PM EDT) Smooth Muscle (F-Actin) IgG Ab 6 <20 UNITS 01/17/2025 2:32 PM EDT [facility] Comment: Interpretation: Negative Test performed at [facility], [address], [place] ??[address] ? [phone] Perla Herring MD, PhD - Delivery Clerk Blood Venous blood specimen / Unknown Venipuncture / Unknown 01/14/2025 12:58 PM EDT 01/14/2025 1:19 PM EDT Mala Barr PA LAB BLOOD ORDERABLES Final Result Performing Organization Address [facility]/ZIP Co de Phone Number [facility] [address] [place] [address] * Hepatitis C virus quantitative molecular study (01/14/2025 11:07 AM EDT) [facility] HCV Qual Interp Not Detected Not Detected LAB MOLECULAR DIAGNOSTICS METHOD 01/19/2025 6:[address] [facility] Comment:HCV RNA not detected , unable to report quantitative results. Blood Venous blood specimen / Unknown Venipuncture / Unknown 01/14/2025 11:07 AM EDT 01/14/2025 11:11 AM EDT Pipo Gomez MD LAB BLOOD ORDERABLES Final Re sult [facility] [address] [place] [address], [place] [phone] * Hepatitis A antibody, total (01/14/2025 11:07 AM EDT) [facility] Hepatitis A Antibody Negative Negative 01/17/2025 1:42 PM EDT [facility] Comment: Test performed at [facility], [address] , [place], [place] ??[address] ? [phone] Perla Herring MD, PhD - Delivery Clerk Blood Venous blood specimen / Unknown Venipuncture / Unknown 01/14/2025 11:07 AM EDT 01/14/2025 11:11 AM EDT Pipo Gomez MD LAB BLOOD ORDERABLES Final Re sult [facility] [address] [place] [address] * (ABNORMAL) Acetaminophen level (01/14/2025 11:07 AM EDT) Only the most recent of2 resultswithin the time period is included. [facility] Acetaminophen Level <2.0(L) 10.0 - 30.0 mcg/mL LAB CHEMISTRY METHOD 01/14/2025 12:[address] [facility] Blood Venous blood specimen / Unknown Venipuncture / Unknown 01/14/2025 11:07 AM EDT 01/14/2025 11:11 AM EDT us Pipo Gomez MD LAB BLOOD ORDERABLES Final Re sult Performing Organization Address [facility]/ZIP Co de Phone Number [facility] [address] [place] [address], [place] [phone] * Prothrombin time with INR (01/14/2025 10:08 AM EDT) [facility] Protime 11.9 10.6 - 13.9 sec LAB COAGULATION METHOD 01/14/2025 10:[address] [facility] INR 0.9 LAB COAGULATION METHOD 01/14/2025 10:[address] [facility] Blood Venous blood specimen / Unknown Venipuncture / Unknown 01/14/2025 10:08 AM EDT 01/14/2025 10:12 AM EDT Alissa GOMEZ LAB BLOOD ORDERABLES Final Res ult Performing Organization Address [facility] de Phone Number [facility] [address] [place] [address], [place] [phone] * Hepatitis C antibody (01/14/2025 10:07 AM EDT) [facility] Hepatitis C Antibody Negative Negative LAB CHEMISTRY METHOD 01/14/2025 12:[address] [facility] Blood Venous blood specimen / Unknown 01/14/2025 10:07 AM EDT 01/14/2025 10:13 AM EDT us Pipo Gomez MD LAB BLOOD ORDERABLES Final Re sult Performing Organization Address City/[facility]/ZIP Co de Phone Number [facility] [address] [place] [address], [place] [phone] * Hepatitis B surface antigen with reflex to confirmation (01/14/2025 10:07 AM EDT) [facility] Hepatitis B Surface Ag Negative Negative LAB CHEMISTRY METHOD 01/14/2025 11:[address] [facility] Blood Venous blood specimen / Unknown 01/14/2025 10:07 AM EDT 01/14/2025 10:[address] [facility] - 01/14/2025 11:43 AM EDT Over the counter supplements containing high doses of biotin may interfere with this assay. ??If interference is suspected, patients shoud be retested after refraining from biotin supplements for 72 hours. Pipo Gomez MD LAB BLOOD ORDERABLES Final Re sult Performing Organization Address City/[facility]/ZIP Co de Phone Number [facility] [address] [place] [address], [place] [phone] * Lavender tube (01/14/2025 10:07 AM EDT) [facility] Extra Tube Hold for add-ons. 01/14/2025 12:[address] [facility] Comment:Auto resulted. Blood Venous blood specimen / Unknown 01/14/2025 10:07 AM EDT 01/14/2025 10:13 AM EDT Freedom Brady MD LAB BLOOD ORDERABLES Final Result [facility] [address] [place] [address], [place] [phone] * Hepatitis A antibody IgM (01/14/2025 10:07 AM EDT) [facility] Hepatitis A Antibody IgM Negative Negative LAB CHEMISTRY METHOD 01/14/2025 12:[address] [facility] Blood Venous blood specimen / Unknown 01/14/2025 10:07 AM EDT 01/14/2025 10:13 AM EDT [facility] - 01/14/2025 12:12 PM EDT Over the counter supplements containing high doses of biotin may interfere with this assay. ??If interference is suspected, patients shoud be retested after refraining from biotin supplements for 72 hours. us Pipo Gomez MD LAB BLOOD ORDERABLES Final Re sult Performing Organization Address [facility] de Phone Number [facility] [address] [place] [address], [place] [phone] * Hepatitis B core antibody IgM (01/14/2025 10:07 AM EDT) Hep B Core IgM Negative Negative LAB CHEMISTRY METHOD 01/14/2025 12:[address] [facility] Blood Venous blood specimen / Unknown 01/14/2025 10:07 AM EDT 01/14/2025 10:13 AM EDT [facility] - 01/14/2025 12:11 PM EDT Over the counter supplements containing high doses of biotin may interfere with this assay. ??If interference is suspected, patients shoud be retested after refraining from biotin supplements for 72 hours. us Pipo Gomez MD LAB BLOOD ORDERABLES Final Re sult Performing Organization Address City/[facility] Co de Phone Number [facility] [address] [place] [address], [place] [phone] * Hepatitis B surface antibody (01/14/2025 10:07 AM EDT) Hepatitis B Surface Ab Negative Negative LAB CHEMISTRY METHOD 01/14/2025 11:[address] [facility] Hepatitis B Surface Ab Quantitative <3.1 mIU/mL LAB CHEMISTRY METHOD 01/14/2025 11:[address] [facility] Blood Venous blood specimen / Unknown 01/14/2025 10:07 AM EDT 01/14/2025 10:[address] [facility] - 01/14/2025 11:32 AM EDT >=10 mIU/mL is considered to be consistent with immunity. Pipo Gomez MD LAB BLOOD ORDERABLES Final Re sult [facility] [address] [place] [address], [place] [phone] * Hepatitis panel, acute with reflex to confirmation (01/14/2025 8:38 AM EDT) Hepatitis B Surface Ag Negative Negative LAB CHEMISTRY METHOD 01/14/2025 11:[address] [facility] Hepatitis A Antibody IgM Negative Negative LAB CHEMISTRY METHOD 01/14/2025 11:[address] [facility] Hep B Core IgM Negative Negative LAB CHEMISTRY METHOD 01/14/2025 11:[address] [facility] Hepatitis C Antibody Negative Negative LAB CHEMISTRY METHOD 01/14/2025 11:[address] [facility] Blood Venous blood specimen / Unknown Venipuncture / Unknown 01/14/2025 8:38 AM EDT 01/14/2025 9:02 AM EDT Mala GOMEZ LAB BLOOD ORDERABLES Final Result [facility] [address] [place] [address], [place] [phone] * Type and screen (01/14/2025 8:38 AM EDT) ABO Group O 01/14/2025 9:[address] [facility] Rh Type Positive 01/14/2025 9:[address] [facility] Antibody Screen Negative 01/14/2025 9:[address] [facility] Blood Venous blood specimen / Unknown Venipuncture / Unknown 01/14/2025 8:38 AM EDT 01/14/2025 9:02 AM EDT Mala GOMEZ LAB BLOOD BANK TEST ORDERA BLES Final Result Performing Organization Address [facility] Co de Phone Number [facility] [address] [place] [address], [place] [phone] * (ABNORMAL) C-reactive protein (01/14/2025 8:38 AM EDT) C-Reactive Protein 0.63(H) <=0.50 mg/dL LAB CHEMISTRY METHOD 01/14/2025 9:[address] [facility] Blood Venous blood specimen / Unknown Venipuncture / Unknown 01/14/2025 8:38 AM EDT 01/14/2025 9:02 AM EDT Pipo Gomez MD LAB BLOOD ORDERABLES Final Re sult Performing Organization Address [facility] Co de Phone Number [facility] [address] [place] [address], [place] [phone] * CT Maxillofacial wo Contrast (01/14/2025 5:51 [...] MD on 01/14/2025 06:46:19 Lakisha Aguirre MD IMG CT PROCEDURES Final Result * CT Head [...] MD on 01/14/2025 06:51:19 Lakisha Aguirre MD [facility] [place] PROCEDURES Final Result * (ABNORMAL) Drug abuse screen 8a panel, urine (01/12/2025 12:08 PM EDT) Amphetamine Screen, Ur Negative Negative LAB CHEMISTRY METHOD 2:[address] [facility] Comment:Certain OTC medicati ons containing ephedrine, phenylephrine, pseudoephedrine and phenylpropanolamine can cause false positive results. Barbiturate Screen, Ur Negative Negative LAB [facility]STR[facility] Benzodiazepine Screen, Ur Negative Negative LAB CHEMISTRY METHOD 5 2:06 PM [facility] Cocaine Screen, Ur Negative Negative LAB CHEMISTRY METHOD 5 2:06 PM [facility] Opiate Screen, Ur Negative Negative LAB CHEMISTRY METHOD 5 2:06 PM [facility] Cannabinoid (THC) Screen, Ur Positive(A ) Negative LAB CHEMISTRY METHOD 5 2:06 PM [facility] Comment:Specimens from patie nts taking pantoprazole sodium (Protonix) have been shown to produce false positive results. Oxycodone Screen, Ur Negative Negative LAB CHEMISTRY METHOD 5 2:06 PM [facility] Fentanyl, Ur Negative Negative LAB CHEMISTRY METHOD 5 2:06 PM [facility] Urine Urine specimen obtained by clean catch procedure / Unknown Non-blood Collection / Unknown 01/12/2025 12:08 PM EDT 01/12/2025 1:[address] [facility] - 01/12/2025 2:06 PM EDT [...] GOMEZ LAB URINE ORDERABLES Final Re sult [facility] [address] [place] [address], [place] [phone] * CT Abdomen Pelvis w Contrast (01/12/2025 [...] Signed Date: 01/12/2025 10:40 ET Workstation ID: [id number] Transcribed By: Self Edit Transcribed Date: 01/12/2025 [...] Signed Date: 01/12/2025 10:40 ET Workstation ID: [id number] Transcribed By: Self Edit Transcribed Date: 01/12/2025 10:23 ET Jerome R Daviau PA IMG CT PROCEDURES Final Resul t * hCG, serum, qualitative (01/12/2025 6:44 AM EDT) hCG Qual Negative Negative 01/12/2025 9:[address] [facility] Blood Venous blood specimen / Unknown Venipuncture / Unknown 01/12/2025 6:44 AM EDT 01/12/2025 7:17 AM EDT Justus GOMEZ LAB BLOOD ORDERABLES Final Re sult Performing Organization Address [facility]/ZIP Co de Phone Number [facility] [address] [place] [address], [place] [phone] * (ABNORMAL) Salicylate Level (01/12/2025 6:44 AM EDT) Pathologist [facility] Salicylate Level 1.9(L) 2.0 - 29.0 mg/dL LAB CHEMISTRY METHOD 01/12/2025 9:[address] [facility] Blood Venous blood specimen / Unknown Venipuncture / Unknown 01/12/2025 6:44 AM EDT 01/12/2025 7:17 AM EDT Justus GOMEZ LAB BLOOD ORDERABLES Final Re sult Performing Organization Address City/[facility]/ZIP Co de Phone Number [facility] [address] [place] [address], [place] [phone] * Hm Colonoscopy (04/01/2024) Colonoscopy no interpretation , abstracted Anatomical Region Laterality Modality Other Historical Provider HEALTH MAINTENANCE Final Result * SCREENING MAMMOGRAPHY BI 2-VIEW [...] % Breast cancer risk category High (>20%) Result [facility] Marc Longo MD IMG XR PROCEDURES Final Result * (ABNORMAL) Lipid panel (11/26/2023) [facility] LDL/HDL Ratio 4 0 - 4 Triglycerides 139 0 - 150 mg/dL Cholesterol 206(A) 0 - 200 mg/dL HDL 58 >=40 mg/dL LDL Cholesterol 121(A) 0 - 100 mg/dL Blood Venous blood specimen / Unknown Result [facility] Historical Provider LAB BLOOD ORDERABLES Maeve l Result * Pap Smear (12/29/2015) [facility] Pap smear normal, abstracted Result [facility] Historical Shiv [facility] HEALTH MAINTENANCE Final Result * HIV Screening (06/26/2009) HIV Screening abstracted us Historical Provider HEALTH MAINTENANCE Final Result from Last 3 Months or Most Recently Relevant to Health Maintenance Insurance [place] Advance Directives Documents on File Type Date Recorded Patient Pen Tender Expl anation Advance Directives and Living Will [...] Agents on File Name Relationship Healthcare Agent [facility] Isadora Ramon [facility] Agent Care Teams Coil Finisher Relationship Specialty Start Date End Date Marc Longo MD [address] [place] [id number] PCP - General Internal Medicine 07/14/15
--- OUTSIDE RECORDS SUMMARY | 2025-02-18 16:17 | XMS_ITS | Encounter Summary ---
Author Organization [employer] Address [address] [place] [address] Care Team Providers Care Documentation Billing Clerk Name Role Phone Marc Longo MD Primary Care Provider [phone] Encounter Details Date Type Department Care Team (Late st Contact Info) Description 02/13/[address] [facility] - Main Lab [address] [facility] [place] [address] Courtney Roger MD [address] [phone] Anemia, unspecified; Other disorders of electrolyte and [...] 10:30 AM EDT Office Visit Adult Medicine [address] [phone] Marc Longo MD [address] [place] [address] 02/24/2025 1:00 PM EDT Appointment [facility] CT Scan [address] [place] [phone] 02/25/2025 8:45 AM EDT Office Visit General Surgery [facility] [address] [phone] Sebastian Sanabria MD [address] [address] 03/10/2025 10:00 AM EDT Office Visit Adult [facility] [address] [place] [address] Toshia Garcia PA [address] [place] [address] 06/21/2025 1:30 PM EDT Office Visit [facility] Hematology Oncology [address] [place] [address] Heide Covarrubias MD [address] [place] [address] documented as of this encounter Visit Diagnoses Diagnosis Anemia, unspecified Other disorders of electrolyte and fluid balance, not elsewhere classified documented in this encounter Care Teams Documentation Billing Clerk Relationship Specialty Start Date End Date Marc Longo MD [address] [place] [phone] PCP - General Internal Medicine 07/14/15 documented as of this encounter
--- OUTSIDE RECORDS SUMMARY | 2025-02-18 16:17 | XMS_ITS | Encounter Summary ---
Author Organization [employer] Address [address] [place] [address] Care Team Providers Care Sightseeing Guide Name Role Phone Marc Longo MD Primary Care Provider [phone] Encounter Details Date Type Department Care Team (Late st Contact Info) Description 01/28/2025 Lab Requisition [facility] - Main Lab 299 [facility] [place] [address] Courtney Roger MD [address] [phone] Anemia, unspecified; Other disorders of electrolyte and [...] 10:30 AM EDT Office Visit Adult Medicine [address] [phone] Marc Longo MD [address] [place] [address] 02/24/2025 1:00 PM EDT Appointment [facility] CT Scan [address] [place] [phone] 02/25/2025 8:45 AM EDT Office Visit General Surgery [facility] [address] [phone] Sebastian Sanabria MD [address] [address] 03/10/2025 10:00 AM EDT Office Visit Adult [facility] [address] [place] [address] Toshia Garcia PA [address] [place] [address] 06/21/2025 1:30 PM EDT Office Visit [facility] Hematology Oncology [address] [place] [address] Heide Covarrubias MD [address] [place] [address] documented as of this encounter Visit Diagnoses Diagnosis Anemia, unspecified Other disorders of electrolyte and fluid balance, not elsewhere classified documented in this encounter Care Teams Sightseeing Guide Relationship Specialty Start Date End Date Marc Longo MD [address] [place] [address] PCP - General Internal Medicine 07/14/15 documented as of this encounter
--- OUTSIDE RECORDS SUMMARY | 2025-02-18 16:17 | XMS_ITS | Encounter Summary ---
Author Organization [employer] Address [address] [place] [address] Care Team Providers Care Manager Pathology Name Role Phone Marc Longo MD Primary Care Provider [phone] Encounter Details Date Type Department Care Team (Late st Contact Info) Description 02/05/2025 Lab Requisition [facility] - Main Lab [address] [facility] [place] [address] Courtney Roger MD [address] [id number] Anemia, unspecified; Other disorders of electrolyte and [...] 10:30 AM EDT Office Visit Adult Medicine [address] [phone] Marc Longo MD [address] [place] [phone] 02/24/2025 1:[address] [facility] CT Scan [address] [place] [phone] 02/25/2025 8:45 AM EDT Office Visit General Surgery [facility] [address] [phone] Sebastian Sanabria MD [address] [address] 03/10/2025 10:00 AM EDT Office Visit Adult [facility] [address] [place] [address] Toshia Garcia PA [address] [place] [address] 06/21/2025 1:30 PM EDT Office Visit [facility] Hematology Oncology [address] [place] [address] Heide Covarrubias MD [address] [place] [address] documented as of this encounter Visit Diagnoses Diagnosis Anemia, unspecified Other disorders of electrolyte and fluid balance, not elsewhere classified documented in this encounter Care Teams Manager Pathology Relationship Specialty Start Date End Date Marc Longo MD [address] [place] [id number] PCP - General Internal Medicine 07/14/15 documented as of this encounter
[2025-02-18 17:00] VITALS: BP 142/71; PULSE 84; RESP 16; TEMP 36.6; O2SAT 98
[2025-02-18] MEDS: Acetaminophen 325 MG TABLET 650 MG PO (17:13)
[2025-02-18 17:25] VITALS: BMI 28.9
--- NOTE | 2025-02-18 17:47 | PC.ADMIT ---
Addendum entered by Marry Arriaga RN 02/18/25 20:00: Belkys mom is her health care proxy, but she can read and signs her own paperwork. She doesnt drink water, only drinks coffee and low fat milk. She is willing to sign JOE's for mom, case advocate and all the standard ROIs. Original Note: Claire arrived via stretcher with EMS from [facility] at 1625. She is awake and alert, oriented x4. She was cooperative with skin and safety check. Her skin check is remarkable for some periorbital ecchymosis/edema, reportedly from SIB, she has an ostomy appliance in left lower quadrant which is intact and draining, stoma is visible and pink in color. Claire states I tried to kill myself because I am so anxious about this bag . She states she is willing to learn about it so she can care for it herself. She is known to this hospital as she was discharged 02/08/25 from . She has history of cognitive delay, self injurious behavior, left facial droop (likely caused by SIB months ago) diverticulitis, PTSD, CKD3, thrombocytopenia, rheumatic mitral stenosis, s/p low anterior resection and colostomy. She was brought to [facility] after her mom noted significantly decreased stool output and no flatus from her ostomy. She does not smoke or use any illicit substances. She currently uses a walker while in hallway for stability since her surgery. She denies urges to harm self or others and any visual or perceptual disturbances. She is on 5 minute checks for the walker.
--- NOTE | 2025-02-18 20:02 | P.CONHOSP_ITS ---
History of Present Illness Data of Consult Service Date: 02/18/25 Requesting physician: Marisela Gaston Primary Care Provider: Marc Longo III, MD HPI Reason for consult: Transfer Medical H/P Patient is a 54-year-old female with past medical history asthma, HTN, GERD, dental extractions, ERIN, cognitive delay, radioulnar syntosis, PTSD, MDD, rheumatic mitral stenosis, lower back surgery, chronic kidney disease stage 3, rectal prolapse with necrosis requiring low anterior resection and colostomy placement January 2025 at [facility], chronic constipation which led to complications involving new colostomy (patient was treated at [facility] and then transferred here to the psych unit for self injurious behaviors), urinary tract infection, weight loss since colostomy placement, is seen today after readmission for self injurious behavior as a transfer from [facility]. Pt recently underwent low anterior resction for rectal prolpase and received a colostomy in January 2025 at [facility]. Pt was then admitted to psych unit here at [facility] from 01/27/25 to 02/06/25. Pt states she was discharged home and struggled with colostomy care and changes in her overall health. At some point, the colostomy bag had popped off and pt's stool production decreased with increasing abdominal pain and pt's mother drove pt to [facility] in [place] for evaluation as they were not happy with the care at [facility]. Pt was diagnosed with Colitis vs Diverticulitis via CT scan and was started on ceftriaxone and Flagyl. The bentyl was held. Surgery did not recommend acute intervetion. Pt also had a left facial droop noted in the ED related to self- injurious behavior. Work up negative for CVA or neurological event. Pt was sta rted on Lactase and miralax prn. Stool production has been copious, liquid with some formation. Pt deneis any abdominal pain on exam and appetite has been good. Pt does note that since her surgery, she has lost 60 pounds (unable to confirm this). Overall, pt is medically stable with no specific medical complaints. Pt is not yet independent with colostomy care and colostomy nursing ordered. Staff will be assisting patient over the weekend and pt has brought in enough supplies. Review of Systems Review of Systems: Patient denies chest pain, nausea, vomiting, abdominal pain. Patient states colostomy bag is functioning properly but the stool is more liquids than formed. Patient states she is not independent with her colostomy care. Patient is requiring assistance. Patient denies any headache, visual changes, lower leg pain and currently ambulates with a walker. Patient denies any chronic pain issues related to history of back surgery. Yes all other systems are reviewed and are negative [facility] Medical History (Updated 02/18/25 @ 20:59 by FRANCISCO Hernández) CKD stage G3b/A1, GFR 30-44 and albumin creatinine ratio <30 mg/g Marijuana use Tobacco dependence HLD (hyperlipidemia) Constipation Asthma ERIN (iron deficiency anemia) GERD (gastroesophageal reflux disease) HTN (hypertension) Anxiety Intellectual disability Acute adjustment disorder with mixed disturbance of emotions and conduct PTSD (post-traumatic stress disorder) MDD (major depressive disorder), recurrent severe, without psychosis Cognitive capacity: Alert and orientated x3 Functional capacity: uses cane/walker Patient : No Pertinent family history: Mother alive age 80 with breast cancer history Father alive age 80 cardiac issues and permanent pacemaker Surgical History (Updated 02/18/25 @ 20:59 by FRANCISCO Hernández) Hx of cholecystectomy Previous back surgery Social History Household Members: Family Household Members Other:: roomate Housing: House Do you presently have visiting nurse or other home services: Yes Comment: 1:1 Patient Tobacco Use Status: Former Tobacco user Tobacco use type: Cigarette e-Cigarette/Vaping Use: Never Used Second Hand Smoke Exposure: No Substance Use Type: Marijuana Advance Directives Date on File: 02/09/25 service: No Sexual orientation: Straight/Heterosexual Ebola Risk: Travel/Contact With Anyone From Affected Area/s: No Has Patient Experienced Ebola Symptoms: No Meds Allergies Allergy/AdvReac Type Severity Reaction Status Date / Time Opioids - Morphine Analogues Allergy Severe NAUSEA, Unverified 01/26/25 11:05 [OPIOIDS - MORPHINE HIVES, ANALOGUES] STOPS BREATHING Active Medications: Current Medications Acetaminophen (Acetaminophen 325 Mg Tablet) 650 mg PO Q6H PRN PRN Reason: Headache/Pain, Scale 1-10 Last Admin: 02/18/25 17:13 Dose: 650 mg Al Hydroxide/Mg Hydroxide (Magnesium Hydrox/Alum Hydrox 30 Ml Oral.Susp) 30 ml PO Q6H PRN PRN Reason: Heartburn/Nausea Hydroxyzine HCl (Hydroxyzine Hcl 25 Mg Tablet) 25 mg PO Q6H PRN PRN Reason: mild anxiety Magnesium Hydroxide (Milk Of Magnesia 30 Ml Oral.Susp) 30 ml PO DAILY PRN PRN Reason: Constipation Nicotine Polacrilex (Nicotine Polacrilex 2 Mg Gum) 4 mg BUCCAL Q2H PRN PRN Reason: Nicotine Cravings Trazodone HCl (Trazodone Hcl 50 Mg Tablet) 50 mg PO BEDTIME MRX1 PRN PRN Reason: Insomnia Home Medications ?Medication ?Instructions ?Recorded ?Confirmed ?Last Taken ?Type atorvastatin 10 mg tablet 10 mg PO BEDTIME 02/18/25 02/18/25 02/17/25 21:00 History ciprofloxacin HCl 500 mg tablet 500 mg PO 2XD 02/18/25 02/18/25 02/18/25 09:00 History folic acid 1 mg tablet 1 mg PO DAILY 02/18/25 02/18/25 02/18/25 09:00 History metoprolol succinate 25 mg 25 mg PO 1XD 02/18/25 02/18/25 02/18/25 09:45 History tablet,extended release 24 hr metronidazole 500 mg tablet 500 mg PO BID 02/18/25 02/18/25 02/18/25 10:00 History polyethylene glycol 3350 17 gram 17 g PO DAILY PRN Constipation 02/18/25 02/18/25 Unknown History oral powder packet (Miralax) risperidone 0.5 mg tablet 0.5 mg PO DAILY 02/18/25 02/18/25 02/18/25 09:45 History sennosides 8.6 mg tablet (senna) 8.6 mg PO BID 02/18/25 02/18/25 02/18/25 10:00 History Physical Exam Vital Signs and Narrative: Alert and orientated X3, able to provide accurate history no medical complaints offered, I am hungry Neuro: CN II-X11 intact, no deficits, visual acuity intact, no obvious facial droop noted EYES: PERRLA, EOM intact, periorbital areas are sunken ENT: hearing intact, no issues with swallowing, uvula midline, lips moist, nares patent no epistaxis, edentulous Cardiac: S1 S2 RRR, mitral II/ murmur, no JVD, no edema in Lower ext Pulmonary: lungs clear to ausculation B Abdominal: BS active in all 4 quadrants, no guarding, tenderness, r ebounding,colostomy attached, bag with liquid diaz stool MSK: strength 4/5 upper and lower extremities, pt has smotth steady gait using walker : no CVA tenderness no bladder distension Extremities: no edema in lower extremities, PT and DP pulses palpable +2 Psych: mood stable, judgement and insight fair Results ECG Attestation: I personally reviewed and interpreted this ECG as follows: (ordered to check QTC) Prior ECG tracings: not available for review Assessment and Plan (1) Colostomy care: Status: Acute (2) Colitis: Status: Acute (3) HTN (hypertension): Status: Acute (4) GERD (gastroesophageal reflux disease): Status: Acute (5) ERIN (iron deficiency anemia): Status: Acute (6) Asthma: Status: Acute (7) Constipation: Status: Acute (8) HLD (hyperlipidemia): Status: Acute (9) Tobacco dependence: Status: Acute (10) CKD stage G3b/A1, GFR 30-44 and albumin creatinine ratio <30 mg/g: Status: Acute (11) Weight loss: Status: Acute Plan Patient is a 54-year-old female with past medical history asthma, HTN, GERD, dental extractions, ERIN, cognitive delay, radioulnar syntosis, PTSD, MDD, rheumatic mitral stenosis, lower back surgery, chronic kidney disease stage 3, rectal prolapse with necrosis requiring low anterior resection and colostomy placement January 2025 at [facility], chronic constipation which led to complications involving new colostomy (patient was treated at [facility] and then transferred here to the psych unit for self injurious behaviors), urinary tract infection, weight loss since colostomy placement was seen for H/P upon transfer to review pt's current medical needs. Pt states her only issue is that she is not yet independent with colostomy care. Colostomy placement January 2025 -ostomy care consultation ordered -patient does currently have enough supplies upon transfer -spoke with nursing staff and they will provide support over the weekend until patient is seen on Friday -continue bowel regimen -Bentyl was resumed upon discharge from [facility] Colitis/diverticulitis medically treated -patient continues on levofloxacin and Flagyl per discharge instructions from [facility] -avoid foods with seeds including popcorn -labs are scheduled for the a.m., review and if any concerns please reconsult hospitalist group -patient should follow-up as an outpatient with [facility] if indicated Weight loss reported 60 lb since surgery in January of 2025 -nutritional consultation ordered -ensure supplements ordered Chronic constipation -continue lactase as ordered -MiraLax p.r.n. -can consider senna but currently stool is liquid History of low back surgery with intermittent pain issues -Tylenol has been effective -patient has not been on opioids, has no history of polysubstance abuse or use of methadone or Suboxone -no indication for narcotics at this time -continue to use walker for ambulation Hypertension -continue amlodipine, metoprolol -blood pressure well controlled -recommend low-sodium diet GERD -continue omeprazole -avoid food triggers Iron-deficiency anemia -monitor H&H -continue ferrous sulfate Asthma -patient currently asymptomatic -albuterol inhaler ordered p.r.n. -duo nebs not indicated Hyperlipidemia -continue atorvastatin -low fat diet Tobacco dependence -continue Nicorette gum Chronic kidney disease stage IIIB -await a.m. labs, review renal function -follow with Nephrology as an outpatient if no acute issue -avoid nephrotoxic meds including NSAIDs Patient has no acute medical concerns at this time. Patient is not independent with a colostomy care and nursing support is availale. Ostomy care consultation ordered. Currently the hospitalist group will sign off. Appreciate this consultation. Please reconsult for any medical concerns that arise.
[2025-02-18 20:19] VITALS: BP 131/95; PULSE 76; TEMP 36.6; O2SAT 99
[2025-02-18] MEDS: levoFLOXacin 500 MG TABLET PO (20:56)
[2025-02-18] MEDS: Atorvastatin Calcium 10 MG TABLET PO (20:56)
[2025-02-18] MEDS: Docusate Sodium 100 MG CAPSULE PO (20:56)
[2025-02-18] MEDS: busPIRone HCl 5 MG TABLET 15 MG PO (20:56)
[2025-02-18] MEDS: metroNIDAZOLE 500 MG TABLET PO (20:56)
[2025-02-18] MEDS: Dicyclomine HCl 10 MG CAPSULE PO (20:56)
[2025-02-18] MEDS: Famotidine 20 MG TABLET PO (20:56)
[2025-02-18] MEDS: cloNIDine HCL 0.1 MG TABLET PO (20:56)
[2025-02-19] MEDS: Acetaminophen 325 MG TABLET 650 MG PO (04:10)
[2025-02-19] MEDS: Dicyclomine HCl 10 MG CAPSULE PO ×4 (06:29→20:25)
[2025-02-19] MEDS: Omeprazole 40 MG CAPSULE.DR PO ×2 (06:29→15:31)
[2025-02-19 07:45] LABS: MANUAL DIFF FLAG NO
[2025-02-19 07:52] LABS: Basophils Percent Auto 0.4 % (0-2); Eosinophils Absolute Auto 0.1 X10*3/uL (0.0-0.4); Hematocrit 40.1 % (37.0-47.0); Hemoglobin 13.8 g/dl (12.0-16.0); Imm Gran Abs Auto 0.03 X10*3/uL (0.00-0.03); Imm Gran Pct Auto 0.4 % (0.0-0.4); Lymphocytes Absolute Auto 1.7 X10*3/uL (1.2-4.9); Lymphocytes Percent Auto 23.6 % (20-40); Mean Corpuscular HGB Conc 34.4 g/dl (31.0-35.0); Mean Corpuscular Hemoglobin 34.6 pg (27.0-33.0); Mean Corpuscular Volume 100.5 fL (80.0-98.0); Mean Platelet Volume 10.9 fL (9.4-12.3); Monocytes Absolute Auto 0.7 X10*3/uL (0.1-1.2); Monocytes Percent Auto 10.5 % (2-11); Neutrophils Absolute Auto 4.4 x10*3/uL (2.0-8.3); Neutrophils Percent Auto 63.1 % (45-73); Platelet Count 119 X10*3/uL (160-400); Red Blood Count 3.99 X10*6/uL (4.20-5.50); Red Cell Distribution Width 12.7 % (11.0-16.0)
[2025-02-19 07:58] LABS: Estimated Average Glucose 100 mg/dL; Hemoglobin A1C 119.2629 umol/L; Hemoglobin A1c % 5.1 % (<6.0); Total Hemoglobin (HGBA1C) 3674.7835 umol/L
[2025-02-19 08:00] VITALS: BP 160/79; PULSE 76; TEMP 36.1; O2SAT 96
--- NOTE | 2025-02-19 08:00 | ECG_ITS ---
Test Reason : check Qtc Blood Pressure : */* mmHG Vent. Rate : 74 BPM Atrial Rate : 74 BPM P-R Int : 182 ms QRS Dur : 78 ms QT Int : 386 ms P-R-T Axes : 26 68 42 degrees QTcB Int : 428 ms Normal sinus rhythm Septal infarct , age undetermined Abnormal ECG When compared with ECG of 28-Jan-2025 14:53, Septal infarct is now Present Referred By: Kika Quinn Electronically Signed By: SALLY GONZALEZ MD
[2025-02-19 08:11] LABS: Alanine Aminotransferase 107 U/L (0-31); Albumin Level 4.3 g/dL (3.5-5.0); Alkaline Phosphatase 97 U/L (39-117); Anion Gap 15 (12-20); Aspartate Amino Transferase 22 U/L (5-31); Bilirubin Total 0.4 mg/dL (0.0-1.0); Blood Urea Nitrogen 25 mg/dL (9-16); Calcium 9.9 mg/dL (8.4-10.2); Carbon Dioxide 24 mmol/L (22-29); Chloride 107 mmol/L (96-108); Cholesterol 168 mg/dL (<200); Creatinine Clr Calc Pharmacy 60.5; Estimated Glomerular Filt Rate > 60; Glucose Random 108 mg/dL (60-115); HDL Cholesterol 63 mg/dL (>40); LDL Cholesterol Calculated 89 mg/dL (<100); Potassium 4.5 mmol/L (3.3-5.1); Sodium 141 mmol/L (135-145); Total Protein 6.8 g/dL (6.5-8.0); Triglycerides 81 mg/dL (<150)
[2025-02-19 08:26] LABS: Free T4 (Free Thyroxine) 1.12 ng/dL (0.71-1.85)
[2025-02-19 08:39] LABS: Folate 13.4 ng/mL (> or = 4.0); Vitamin B12 1006 pg/mL (200-900)
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
[2025-02-19] MEDS: cloNIDine HCL 0.1 MG TABLET PO ×3 (08:48→20:25)
[2025-02-19] MEDS: Ferrous Sulfate 324 MG TABLET.DR PO (08:48)
[2025-02-19] MEDS: Lactase TABLET 1 TAB PO ×3 (08:48→16:02)
[2025-02-19] MEDS: metroNIDAZOLE 500 MG TABLET PO ×2 (08:48→20:25)
[2025-02-19] MEDS: amLODIPine Besylate 2.5 MG TABLET 7.5 MG PO (08:48)
[2025-02-19] MEDS: busPIRone HCl 5 MG TABLET 15 MG PO ×3 (08:48→20:25)
[2025-02-19] MEDS: Metoprolol Succinate ER 25 MG TAB.ER.24H PO (08:49)
[2025-02-19] MEDS: Folic Acid 1 MG TABLET PO (08:49)
[2025-02-19] MEDS: risperiDONE 0.5 MG TABLET PO (08:49)
[2025-02-19] MEDS: Famotidine 20 MG TABLET PO ×2 (08:49→20:26)
[2025-02-19] MEDS: Acetaminophen 325 MG TABLET 975 MG PO ×2 (10:29→20:58)
[2025-02-19] MEDS: hydrOXYzine HCL 25 MG TABLET PO ×2 (10:35→23:49)
[2025-02-19 14:06] VITALS: BP 129/60
[2025-02-19 19:52] VITALS: BP 125/60; PULSE 79; TEMP 36.5; O2SAT 97
[2025-02-19] MEDS: Docusate Sodium 100 MG CAPSULE PO (20:25)
[2025-02-19] MEDS: Atorvastatin Calcium 10 MG TABLET PO (20:25)
[2025-02-19] MEDS: levoFLOXacin 500 MG TABLET PO (20:25)
[2025-02-20] MEDS: traZODone HCL 50 MG TABLET PO ×4 (00:59→22:22)
[2025-02-20] MEDS: Dicyclomine HCl 10 MG CAPSULE PO ×4 (06:28→21:03)
[2025-02-20] MEDS: Omeprazole 40 MG CAPSULE.DR PO ×2 (06:28→16:59)
[2025-02-20 07:55] VITALS: BP 149/67; PULSE 92; TEMP 36.9; O2SAT 96
[2025-02-20] MEDS: Lactase TABLET 1 TAB PO ×3 (08:27→16:59)
[2025-02-20] MEDS: metroNIDAZOLE 500 MG TABLET PO ×2 (08:27→21:01)
[2025-02-20] MEDS: cloNIDine HCL 0.1 MG TABLET PO ×3 (08:27→21:01)
[2025-02-20] MEDS: Famotidine 20 MG TABLET PO ×2 (08:27→21:03)
[2025-02-20] MEDS: amLODIPine Besylate 2.5 MG TABLET 7.5 MG PO (08:27)
[2025-02-20] MEDS: Ferrous Sulfate 324 MG TABLET.DR PO (08:27)
[2025-02-20] MEDS: busPIRone HCl 5 MG TABLET 15 MG PO ×3 (08:27→21:00)
[2025-02-20] MEDS: Folic Acid 1 MG TABLET PO (08:28)
[2025-02-20] MEDS: Metoprolol Succinate ER 25 MG TAB.ER.24H PO (08:28)
[2025-02-20] MEDS: Acetaminophen 325 MG TABLET 975 MG PO ×2 (08:28→17:41)
[2025-02-20] MEDS: risperiDONE 0.5 MG TABLET PO (08:28)
--- NOTE | 2025-02-20 09:50 | HO.PSYCHPN ---
Subjective Subjective Date of Service: 02/20/25 Reason For Visit: PTSD Interim History: Met with patient; discussed with team Patient reports that she is good has a noticeably bright affect. She denies any SI and feels that she is back to her regular self. Had a visit from her father today which she said went wonderfully. Patient shares that she had trouble sleeping and director underwriter sales scheduled trazodone. Patient has some GERD at bedtime but already on famotidine. Patient observed social and friendly in the milieu and getting along well with peers. Mental Status Exam Mental Status Exam Narrative: Pt is alert and oriented; behavior is in friendly, cooperative, calm, appropriately social in the milieu and in good behavioral contro; patient is not in distress; dressed in casual attire with adequate hygiene and grooming; some remnant of bruising on her face; mood is described as good and affect congruent, bright, calm; eye contact appropriate; Speech is normal rate, volume and prosody and not pressured; no psychomotor agitation/retardation present; thought process is organized and goal directed; Thought content is on treatment; otherwise pertinent to relevant topics and without any delusional content, paranoid ideations or grandiosity; denies any SI/HI. Denies AVH and there is no evidence of perceptual disturbance. Patients insight and judgment adequate and at baseline. Diagnostics Vital Signs (24Hr): Vital Signs - 24 hr 02/19/25 14:06 02/19/25 19:52 02/20/25 07:55 Temperature 97.7 F 98.5 F Pulse Rate 79 92 Blood Pressure 129/60 125/60 149/67 H Pulse Oximetry 97 96 Oxygen Delivery Method Room Air Room Air BMI result Body Mass Index 28.9 Labs 02/19/25 07:40 02/19/25 07:40 Labs: Laboratory Results - last 48 hr 02/19/25 02/19/25 02/19/25 07:40 07:40 07:40 WBC 7.0 RBC 3.99 L Hgb 13.8 Hct 40.1 MCV 100.5 H MCH 34.6 H MCHC 34.4 RDW 12.7 Plt Count 119 L MPV 10.9 Immature Gran % (Auto) 0.4 Neut % (Auto) 63.1 Lymph % (Auto) 23.6 [place] % (Auto) 10.5 Eos % (Auto) 2.0 Baso % (Auto) 0.4 Lymph # (Auto) 1.7 [place] # (Auto) 0.7 Eos # (Auto) 0.1 Baso # (Auto) 0.0 Abs Immat Gran (auto) 0.03 Absolute Neuts (auto) 4.4 Absolute Nucleated RBC 0.000 Nucleated RBC % (auto) 0.0 Sodium 141 Potassium 4.5 D Chloride 107 Carbon Dioxide 24 Anion Gap 15 BUN 25 H Creatinine 0.88 Estim Creat Clear Calc 60.5 Estimated GFR > 60 Random Glucose 108 Estimat Average Glucose 100 Hemoglobin A1c % 5.1 Calcium 9.9 Magnesium 2.0 Cancelled Total Bilirubin 0.4 AST 22 ALT 107 H Alkaline Phosphatase 97 Total Protein 6.8 Albumin 4.3 Triglycerides 81 Cancelled Cholesterol 168 LDL Cholesterol, Calc HDL Cholesterol Vitamin B12 Folate TSH Free T4 02/19/25 02/19/25 02/19/25 07:40 07:40 07:40 WBC RBC Hgb Hct MCV MCH MCHC RDW Plt Count MPV Immature Gran % (Auto) Neut % (Auto) Lymph % (Auto) [place] % (Auto) Eos % (Auto) Baso % (Auto) Lymph # (Auto) [place] # (Auto) Eos # (Auto) Baso # (Auto) Abs Immat Gran (auto) Absolute Neuts (auto) Absolute Nucleated RBC Nucleated RBC % (auto) Sodium Potassium Chloride Carbon Dioxide Anion Gap BUN Creatinine Estim Creat Clear Calc Estimated GFR Random Glucose Estimat Average Glucose Hemoglobin A1c % Calcium Magnesium Total Bilirubin AST ALT Alkaline Phosphatase Total Protein Albumin Triglycerides Cholesterol Cancelled LDL Cholesterol, Calc 89 Cancelled HDL Cholesterol 63 Cancelled Vitamin B12 1006 H Folate 13.4 TSH 2.00 Free T4 02/19/25 02/19/25 07:40 07:40 WBC RBC Hgb Hct MCV MCH MCHC RDW Plt Count MPV Immature Gran % (Auto) Neut % (Auto) Lymph % (Auto) [place] % (Auto) Eos % (Auto) Baso % (Auto) Lymph # (Auto) [place] # (Auto) Eos # (Auto) Baso # (Auto) Abs Immat Gran (auto) Absolute Neuts (auto) Absolute Nucleated RBC Nucleated RBC % (auto) Sodium Potassium Chloride Carbon Dioxide Anion Gap BUN Creatinine Estim Creat Clear Calc Estimated GFR Random Glucose Estimat Average Glucose Hemoglobin A1c % Calcium Magnesium Total Bilirubin AST ALT Alkaline Phosphatase Total Protein Albumin Triglycerides Cholesterol LDL Cholesterol, Calc HDL Cholesterol Vitamin B12 Folate TSH Cancelled Free T4 1.12 Cancelled Medications Medications Current Medications Acetaminophen (Acetaminophen 325 Mg Tablet) 975 mg PO TID PRN PRN Reason: Headache/Pain, Scale 1-10 Last Admin: 02/20/25 08:28 Dose: 975 mg Al Hydroxide/Mg Hydroxide (Magnesium Hydrox/Alum Hydrox 30 Ml Oral.Susp) 30 ml PO Q6H PRN PRN Reason: Heartburn/Nausea Albuterol Sulfate (Albuterol Sulfate 90 Mcg 8 Gm Inhaler) 2 puff INHALE Q4H PRN PRN Reason: Wheezing Amlodipine Besylate (Amlodipine Besylate 2.5 Mg Tablet) 7.5 mg PO DAILY [facility]; Protocol Last Admin: 02/20/25 08:27 Dose: 7.5 mg Atorvastatin Calcium (Atorvastatin Calcium 10 Mg Tablet) 10 mg PO BEDTIME [facility] Last Admin: 02/19/25 20:25 Dose: 10 mg Buspirone HCl (Buspirone Hcl 5 Mg Tablet) 15 mg PO TID [facility] Last Admin: 02/20/25 08:27 Dose: 15 mg Clonidine HCl (Clonidine Hcl 0.1 Mg Tablet) 0.1 mg PO TID [facility]; Protocol Last Admin: 02/20/25 08:27 Dose: 0.1 mg Dicyclomine HCl (Dicyclomine Hcl 10 Mg Capsule) 10 mg PO QIDACHS [facility] Last Admin: 02/20/25 06:28 Dose: 10 mg Docusate Sodium (Docusate Sodium 100 Mg Capsule) 100 mg PO BEDTIME [facility] Last Admin: 02/19/25 20:25 Dose: 100 mg Famotidine (Famotidine 20 Mg Tablet) 20 mg PO BID [facility] Last Admin: 02/20/25 08:27 Dose: 20 mg Ferrous Sulfate (Ferrous Sulfate 324 Mg Tablet.Dr) 324 mg PO DAILY [facility] Last Admin: 02/20/25 08:27 Dose: 324 mg Folic Acid (Folic Acid 1 Mg Tablet) 1 mg PO DAILY [facility] Last Admin: 02/20/25 08:28 Dose: 1 mg Hydroxyzine HCl (Hydroxyzine Hcl 25 Mg Tablet) 25 mg PO Q6H PRN PRN Reason: mild anxiety Last Admin: 02/19/25 23:49 Dose: 25 mg Lactase (Lactase Tablet) 1 tab PO TIDWM [facility] Last Admin: 02/20/25 08:27 Dose: 1 tab Levofloxacin (Levofloxacin 500 Mg Tablet) 500 mg PO Q24H [facility] Last Admin: 02/19/25 20:25 Dose: 500 mg Magnesium Hydroxide (Milk Of Magnesia 30 Ml Oral.Susp) 30 ml PO DAILY PRN PRN Reason: Constipation Metoprolol Succinate (Metoprolol Succinate Er 25 Mg Tab.Er.24h) 25 mg PO DAILY [facility]; Protocol Last Admin: 02/20/25 08:28 Dose: 25 mg Metronidazole (Metronidazole 500 Mg Tablet) 500 mg PO BID [facility] Last Admin: 02/20/25 08:27 Dose: 500 mg Nicotine Polacrilex (Nicotine Polacrilex 2 Mg Gum) 4 mg BUCCAL Q2H PRN PRN Reason: Nicotine Cravings Omeprazole (Omeprazole 40 Mg Capsule.Dr) 40 mg PO BID@0630,1630 [facility] Last Admin: 02/20/25 06:28 Dose: 40 mg Polyethylene Glycol (Polyethylene Glycol 3350 17 Gm Powd.Pack) 17 gm PO DAILY PRN PRN Reason: Constipation Risperidone (Risperidone 0.5 Mg Tablet) 0.5 mg PO DAILY [facility] Last Admin: 02/20/25 08:28 Dose: 0.5 mg Trazodone HCl (Trazodone Hcl 50 Mg Tablet) 50 mg PO BEDTIME MRX1 PRN PRN Reason: Insomnia Last Admin: 02/20/25 01:58 Dose: 50 mg Allergies Allergies Allergy/AdvReac Type Severity Reaction Status Date / Time Opioids - Morphine Analogues Allergy Severe NAUSEA, Verified 02/19/25 10:30 [OPIOIDS - MORPHINE HIVES, ANALOGUES] STOPS BREATHING Assessment & Plan Assessment & Plan (1) MDD (major depressive disorder), recurrent severe, without psychosis: Status: Acute Code(s): F33.2 - Major depressive disorder, recurrent severe without psychotic features (2) PTSD (post-traumatic stress disorder): Status: Acute Code(s): F43.10 - Post-traumatic stress disorder, unspecified (3) Colostomy care: Status: Acute Code(s): Z43.3 - Encounter for attention to colostomy (4) CKD stage G3b/A1, GFR 30-44 and albumin creatinine ratio <30 mg/g: Status: Acute Code(s): N18.32 - Chronic kidney disease, stage 3b (5) Intellectual disability: Status: Acute Code(s): F79 - Unspecified intellectual disabilities (6) Adjustment disorder with mixed disturbance of emotions and conduct in remission: Status: Acute Code(s): F43.25 - Adjustment disorder with mixed disturbance of emotions and conduct Plan Patient is a 54-year-old female recently discharged from on 02/07/2025 with history of depression, anxiety, cannabis use disorder and medical history of asthma, HTN, GERD, dental extractions, ERIN, cognitive delay, radioulnar syntosis, PTSD, MDD, rheumatic mitral stenosis, lower back surgery, chronic kidney disease stage 3, rectal prolapse with necrosis requiring low anterior resection and colostomy placement January 2025 at [facility], chronic constipation which led to complications involving new colostomy (patient was treated at [facility] and then transferred here to the psych unit for self injurious behaviors). At some point after discharge, the colostomy bag came off; pt had increasing abdominal pain; pt's mother drove pt to [facility] in [place] and diagnosed with Colitis vs Diverticulitis via CT scan and was started on ceftriaxone and Flagyl. At the hospital patient reported depression and SI (self-injurious behaviors?) and now presents again for admission. Patient is somewhat a limited historian, not wanting to talk much. She says she is here because she was depressed. She said she had suicidal thoughts but now she no longer has them. Patient does not offer any other information. To other provider patient reports her only issue is that she is not yet independent with colostomy care. Formulation/clinical reasoning: Patient has been struggling with emotional reactivity and lability for several months. Patient is likely already returning to baseline. Patient has overall depression which is now chronic; Her main presenting issue seems to be adjusting to life with a colostomy bag. Will continue recent medication regimen she was discharged on from on 02/07/2025. Will monitor. Hospital course: 02/20 Patient reports that she is good has a noticeably bright affect. She denies any SI and feels that she is back to her regular self. Had a visit from her father today which she said went wonderfully. Patient shares that she had trouble sleeping and director underwriter sales scheduled trazodone and increased dose. Patient has some GERD at bedtime but already on both omeprazole and newly started famotidine. Patient observed social and friendly in the milieu and getting along well with peers. -today patient was instructing nurses on how to empty her colostomy bag Plan: CV Q 15 minute checks Continue home medication regimen -Pt was started on Lactase and miralax prn. -Bentyl restarted on admission; will discuss with hospitalist -Increase trazodone? to 100 mg q.h.s.(patient was on 125mg at last admission) -Patient now on Risperdal 0.5 mg daily -will hold off from restarting Haldol at this time since patient appears to be doing well -Restart Zoloft 25mg: pt was on 150mg as of 2 weeks ago; not sure why dc'd and given history it is likely she will benefit from this Regarding diet: -will continue with regular diet rather than low-sodium/cardiac; patient will not adhere to any diet restrictions at home so it is director underwriter sales's opinion that it is better to monitor her blood pressure and adjust BP meds rather than to expect patient to change her diet behaviors. Meds last admission: Haloperidol 2 mg PO BID@0900,1700 [facility] Haloperidol 5 mg PO Q4H PRN Sertraline HCl 150 mg PO DAILY [facility] Lorazepam 1 mg PO Q4H PRN Hydroxyzine HCl ?25 mg PO Q6H PRN Trazodone HCl 25 mg PO BEDTIME [facility] Trazodone HCl 100 mg PO BEDTIME [facility] Medical comorbidities: Colostomy placement January 2025 -ostomy care consultation ordered -patient does currently have enough supplies upon transfer -spoke with nursing staff and they will provide support over the weekend until patient is seen on Friday -continue bowel regimen -Bentyl was resumed upon discharge from [facility] Colitis/diverticulitis medically treated -patient continues on levofloxacin and Flagyl per discharge instructions from [facility] -avoid foods with seeds including popcorn -labs are scheduled for the a.m., review and if any concerns please reconsult hospitalist group -patient should follow-up as an outpatient with [facility] if indicated Weight loss reported 60 lb since surgery in January of 2025 -nutritional consultation ordered -ensure supplements ordered Chronic constipation -continue lactase as ordered -MiraLax p.r.n. -can consider senna but currently stool is liquid History of low back surgery with intermittent pain issues -Tylenol has been effective -patient has not been on opioids, has no history of polysubstance abuse or use of methadone or Suboxone -no indication for narcotics at this time -continue to use walker for ambulation Hypertension -continue amlodipine, metoprolol -blood pressure well controlled -recommend low-sodium diet GERD -continue omeprazole -avoid food triggers Iron-deficiency anemia -monitor H&H -continue ferrous sulfate Asthma -patient currently asymptomatic -albuterol inhaler ordered p.r.n. -duo nebs not indicated Hyperlipidemia -continue atorvastatin -low fat diet Tobacco dependence -continue Nicorette gum Chronic kidney disease stage IIIB -await a.m. labs, review renal function -follow with Nephrology as an outpatient if no acute issue -avoid nephrotoxic meds including NSAIDs Patient has no acute medical concerns at this time. Patient is not independent with a colostomy care and nursing support is availale. Ostomy care consultation ordered. Currently the hospitalist group will sign off. Appreciate this consultation. Please reconsult for any medical concerns that arise. Patient educated on: diagnosis, medication risk/benefits, therapeutic strategies and medical condition Informed Consent: understands Reason for continued inpatient stay Substantial Risk for: stable for discharge Time Spent With Patient Time: Total time managing care of this patient today ____ minutes.
[2025-02-20 14:29] VITALS: BP 135/62; PULSE 86
[2025-02-20 19:49] VITALS: BP 117/68; PULSE 75; TEMP 37.1; O2SAT 100
[2025-02-20] MEDS: traZODone HCL 100 MG TABLET PO (21:01)
[2025-02-20] MEDS: levoFLOXacin 500 MG TABLET PO (21:02)
[2025-02-20] MEDS: Atorvastatin Calcium 10 MG TABLET PO (21:02)
[2025-02-20] MEDS: Docusate Sodium 100 MG CAPSULE PO (21:02)
[2025-02-21] MEDS: Omeprazole 40 MG CAPSULE.DR PO ×2 (06:36→15:42)
[2025-02-21] MEDS: Dicyclomine HCl 10 MG CAPSULE PO ×4 (06:36→21:45)
[2025-02-21 07:50] VITALS: BP 125/80; PULSE 100; RESP 18; TEMP 36.5; O2SAT 98
[2025-02-21] MEDS: Acetaminophen 325 MG TABLET 975 MG PO (08:09)
[2025-02-21] MEDS: Lactase TABLET 1 TAB PO ×3 (08:09→17:08)
[2025-02-21 09:03] VITALS: BP 125/80
[2025-02-21] MEDS: amLODIPine Besylate 2.5 MG TABLET 7.5 MG PO (09:03)
[2025-02-21 09:05] VITALS: BP 125/80; PULSE 100
[2025-02-21] MEDS: Sertraline HCL 25 MG TABLET PO (09:05)
[2025-02-21] MEDS: Metoprolol Succinate ER 25 MG TAB.ER.24H PO (09:05)
[2025-02-21 09:06] VITALS: BP 125/80
[2025-02-21] MEDS: Folic Acid 1 MG TABLET PO (09:06)
[2025-02-21] MEDS: cloNIDine HCL 0.1 MG TABLET PO ×3 (09:06→21:45)
[2025-02-21] MEDS: Ferrous Sulfate 324 MG TABLET.DR PO (09:06)
[2025-02-21] MEDS: risperiDONE 0.5 MG TABLET PO (09:06)
[2025-02-21] MEDS: metroNIDAZOLE 500 MG TABLET PO ×2 (09:06→21:45)
[2025-02-21] MEDS: Famotidine 20 MG TABLET PO ×2 (09:07→21:45)
[2025-02-21] MEDS: busPIRone HCl 5 MG TABLET 15 MG PO ×3 (09:07→21:45)
--- NOTE | 2025-02-21 09:42 | P.PNPSI_ITS ---
Subjective Subjective Date of Service: 02/21/25 Reason For Visit: PTSD Interim History: met with patient; discussed with team Patient reports that she good feels calm; when faced with the discussion of discharge however she said she is not ready, she is anxious and needs more help... Patient said she needs help with learning how to empty her colostomy bag and needs more help with learning to cope with her anxiety; she also said she needs to learn how to not ask people for help when she knows she can do it herself. Patient complains of some left arm pain; magazine writer explained this is most likely because she is using a walker (which she does not need and does not use at home) however patient seems to be very emotionally tied to using the walker and does not want to discontinue. Mental Status Exam Mental Status Exam Narrative: Pt is alert and oriented; behavior is in friendly, cooperative, calm, appropriately social in the milieu and in good behavioral control; patient is not in distress; dressed in casual attire with adequate hygiene and grooming; some remnant of bruising on her face; mood is described as good and affect congruent, bright, calm; eye contact appropriate; Speech is normal rate, volume and prosody and not pressured; no psychomotor agitation/retardation present; thought process is organized and goal directed; Thought content is on treatment; otherwise pertinent to relevant topics and without any delusional content, paranoid ideations or grandiosity; denies any SI/HI. Denies AVH and there is no evidence of perceptual disturbance. Patients insight and judgment adequate and at baseline. Diagnostics Vital Signs (24Hr): Vital Signs - 24 hr 02/20/25 14:29 02/20/25 19:49 02/21/25 07:50 Temperature 98.8 F 97.7 F Pulse Rate 86 75 100 Respiratory Rate 18 Blood Pressure 135/62 117/68 125/80 Pulse Oximetry 100 98 Oxygen Delivery Method Room Air Room Air 02/21/25 09:03 02/21/25 09:05 02/21/25 09:06 Temperature Pulse Rate 100 Respiratory Rate Blood Pressure 125/80 125/80 125/80 Pulse Oximetry Oxygen Delivery Method BMI result Body Mass Index 28.9 Labs 02/19/25 07:40 02/19/25 07:40 Medications Medications Current Medications Acetaminophen (Acetaminophen 325 Mg Tablet) 975 mg PO TID PRN PRN Reason: Headache/Pain, Scale 1-10 Last Admin: 02/21/25 08:09 Dose: 975 mg Al Hydroxide/Mg Hydroxide (Magnesium Hydrox/Alum Hydrox 30 Ml Oral.Susp) 30 ml PO Q6H PRN PRN Reason: Heartburn/Nausea Albuterol Sulfate (Albuterol Sulfate 90 Mcg 8 Gm Inhaler) 2 puff INHALE Q4H PRN PRN Reason: Wheezing Amlodipine Besylate (Amlodipine Besylate 2.5 Mg Tablet) 7.5 mg PO DAILY [facility]; Protocol Last Admin: 02/21/25 09:03 Dose: 7.5 mg Atorvastatin Calcium (Atorvastatin Calcium 10 Mg Tablet) 10 mg PO BEDTIME [facility] Last Admin: 02/20/25 21:02 Dose: 10 mg Buspirone HCl (Buspirone Hcl 5 Mg Tablet) 15 mg PO TID [facility] Last Admin: 02/21/25 09:07 Dose: 15 mg Clonidine HCl (Clonidine Hcl 0.1 Mg Tablet) 0.1 mg PO TID [facility]; Protocol Last Admin: 02/21/25 09:06 Dose: 0.1 mg Dicyclomine HCl (Dicyclomine Hcl 10 Mg Capsule) 10 mg PO QIDACHS [facility] Last Admin: 02/21/25 06:36 Dose: 10 mg Docusate Sodium (Docusate Sodium 100 Mg Capsule) 100 mg PO BEDTIME [facility] Last Admin: 02/20/25 21:02 Dose: 100 mg Famotidine (Famotidine 20 Mg Tablet) 20 mg PO BID [facility] Last Admin: 02/21/25 09:07 Dose: 20 mg Ferrous Sulfate (Ferrous Sulfate 324 Mg Tablet.Dr) 324 mg PO DAILY [facility] Last Admin: 02/21/25 09:06 Dose: 324 mg Folic Acid (Folic Acid 1 Mg Tablet) 1 mg PO DAILY [facility] Last Admin: 02/21/25 09:06 Dose: 1 mg Hydroxyzine HCl (Hydroxyzine Hcl 25 Mg Tablet) 25 mg PO Q6H PRN PRN Reason: mild anxiety Last Admin: 02/19/25 23:49 Dose: 25 mg Lactase (Lactase Tablet) 1 tab PO TIDWM [facility] Last Admin: 02/21/25 08:09 Dose: 1 tab Levofloxacin (Levofloxacin 500 Mg Tablet) 500 mg PO Q24H [facility] Last Admin: 02/20/25 21:02 Dose: 500 mg Magnesium Hydroxide (Milk Of Magnesia 30 Ml Oral.Susp) 30 ml PO DAILY PRN PRN Reason: Constipation Metoprolol Succinate (Metoprolol Succinate Er 25 Mg Tab.Er.24h) 25 mg PO DAILY [facility]; Protocol Last Admin: 02/21/25 09:05 Dose: 25 mg Metronidazole (Metronidazole 500 Mg Tablet) 500 mg PO BID [facility] Last Admin: 02/21/25 09:06 Dose: 500 mg Nicotine Polacrilex (Nicotine Polacrilex 2 Mg Gum) 4 mg BUCCAL Q2H PRN PRN Reason: Nicotine Cravings Omeprazole (Omeprazole 40 Mg Capsule.Dr) 40 mg PO BID@0630,1630 [facility] Last Admin: 02/21/25 06:36 Dose: 40 mg Polyethylene Glycol (Polyethylene Glycol 3350 17 Gm Powd.Pack) 17 gm PO DAILY PRN PRN Reason: Constipation Risperidone (Risperidone 0.5 Mg Tablet) 0.5 mg PO DAILY [facility] Last Admin: 02/21/25 09:06 Dose: 0.5 mg Sertraline HCl (Sertraline Hcl 25 Mg Tablet) 25 mg PO DAILY [facility] Last Admin: 02/21/25 09:05 Dose: 25 mg Trazodone HCl (Trazodone Hcl 50 Mg Tablet) 50 mg PO BEDTIME MRX1 PRN PRN Reason: Insomnia Last Admin: 02/20/25 22:22 Dose: 50 mg Trazodone HCl (Trazodone Hcl 100 Mg Tablet) 100 mg PO BEDTIME [facility] Last Admin: 02/20/25 21:01 Dose: 100 mg Allergies Allergies Allergy/AdvReac Type Severity Reaction Status Date / Time Opioids - Morphine Analogues Allergy Severe NAUSEA, Verified 02/19/25 10:30 [OPIOIDS - MORPHINE HIVES, ANALOGUES] STOPS BREATHING Assessment & Plan Assessment & Plan (1) MDD (major depressive disorder), recurrent severe, without psychosis: Status: Acute Code(s): F33.2 - Major depressive disorder, recurrent severe without psychotic features (2) PTSD (post-traumatic stress disorder): Status: Acute Code(s): F43.10 - Post-traumatic stress disorder, unspecified (3) Colostomy care: Status: Acute Code(s): Z43.3 - Encounter for attention to colostomy (4) CKD stage G3b/A1, GFR 30-44 and albumin creatinine ratio <30 mg/g: Status: Acute Code(s): N18.32 - Chronic kidney disease, stage 3b (5) Intellectual disability: Status: Acute Code(s): F79 - Unspecified intellectual disabilities (6) Adjustment disorder with mixed disturbance of emotions and conduct in remission: Status: Acute Code(s): F43.25 - Adjustment disorder with mixed disturbance of emotions and conduct Plan Patient is a 54-year-old female recently discharged from on 02/07/2025 with history of depression, anxiety, cannabis use disorder and medical history of asthma, HTN, GERD, dental extractions, ERIN, cognitive delay, radioulnar syntosis, PTSD, MDD, rheumatic mitral stenosis, lower back surgery, chronic kidney disease stage 3, rectal prolapse with necrosis requiring low anterior resection and colostomy placement January 2025 at [facility], chronic constipation which led to complications involving new colostomy (patient was treated at [facility] and then transferred here to the psych unit for self injurious behaviors). At some point after discharge, the colostomy bag came off; pt had increasing abdominal pain; pt's mother drove pt to [facility] in [place] and diagnosed with Colitis vs Diverticulitis via CT scan and was started on ceftriaxone and Flagyl. At the hospital patient reported depression and SI (self-injurious behaviors?) and now presents again for admission. Patient is somewhat a limited historian, not wanting to talk much. She says she is here because she was depressed. She said she had suicidal thoughts but now she no longer has them. Patient does not offer any other information. To other provider patient reports her only issue is that she is not yet independent with colostomy care. Formulation/clinical reasoning: Patient has been struggling with emotional reactivity and lability for several months. Patient is likely already returning to baseline. Patient has overall depression which is now chronic; Her main presenting issue seems to be adjusting to life with a colostomy bag. Will continue recent medication regimen she was discharged on from on 02/07/2025. Will monitor. Hospital course: 02/20 Patient reports that she is good has a noticeably bright affect. She denies any SI and feels that she is back to her regular self. Had a visit from her father today which she said went wonderfully. Patient shares that she had trouble sleeping and magazine writer scheduled trazodone and increased dose. Patient has some GERD at bedtime but already on both omeprazole and newly started famotidine. Patient observed social and friendly in the milieu and getting along well with peers. -today patient was instructing nurses on how to empty her colostomy bag 02/21 Patient reports that she good feels calm; when faced with the discussion of discharge however she said she is not ready, she is anxious and needs more help... Patient said she needs help with learning how to empty her colostomy bag and needs more help with learning to cope with her anxiety; she also said she needs to learn how to not ask people for help when she knows she can do it herself. -Patient complains of some left arm pain; magazine writer explained this is most likely because she is using a walker (which she does not need and does not use at home) however patient seems to be very emotionally tied to using the walker and does not want to discontinue. -will continue to titrate Zoloft which patient said she was taking up until this admission. Will place wound consult to help train patient with colostomy bag and aim for discharge later this week Plan: CV Q 15 minute checks Continue home medication regimen -Pt was started on Lactase and miralax prn. -Bentyl restarted on admission; will discuss with hospitalist -Increase trazodone? to 100 mg q.h.s.(patient was on 125mg at last admission) -Patient now on Risperdal 0.5 mg daily -will hold off from restarting Haldol at this time since patient appears to be doing well -titrating Zoloft pt was on 150mg as of 2 weeks ago; not sure why dc'd and given history it is likely she will benefit from this Regarding diet: -will continue with regular diet rather than low-sodium/cardiac; patient will not adhere to any diet restrictions at home so it is magazine writer's opinion that it is better to monitor her blood pressure and adjust BP meds rather than to expect patient to change her diet behaviors. Meds last admission: Haloperidol 2 mg PO BID@0900,1700 [facility] Haloperidol 5 mg PO Q4H PRN Sertraline HCl 150 mg PO DAILY [facility] Lorazepam 1 mg PO Q4H PRN Hydroxyzine HCl ?25 mg PO Q6H PRN Trazodone HCl 25 mg PO BEDTIME [facility] Trazodone HCl 100 mg PO BEDTIME [facility] Medical comorbidities: Colostomy placement January 2025 -ostomy care consultation ordered -patient does currently have enough supplies upon transfer -spoke with nursing staff and they will provide support over the weekend until patient is seen on Friday -continue bowel regimen -Bentyl was resumed upon discharge from [facility] Colitis/diverticulitis medically treated -patient continues on levofloxacin and Flagyl per discharge instructions from [facility] -avoid foods with seeds including popcorn -labs are scheduled for the a.m., review and if any concerns please reconsult hospitalist group -patient should follow-up as an outpatient with [facility] if indicated Weight loss reported 60 lb since surgery in January of 2025 -nutritional consultation ordered -ensure supplements ordered Chronic constipation -continue lactase as ordered -MiraLax p.r.n. -can consider senna but currently stool is liquid History of low back surgery with intermittent pain issues -Tylenol has been effective -patient has not been on opioids, has no history of polysubstance abuse or use of methadone or Suboxone -no indication for narcotics at this time -continue to use walker for ambulation Hypertension -continue amlodipine, metoprolol -blood pressure well controlled -recommend low-sodium diet GERD -continue omeprazole -avoid food triggers Iron-deficiency anemia -monitor H&H -continue ferrous sulfate Asthma -patient currently asymptomatic -albuterol inhaler ordered p.r.n. -duo nebs not indicated Hyperlipidemia -continue atorvastatin -low fat diet Tobacco dependence -continue Nicorette gum Chronic kidney disease stage IIIB -await a.m. labs, review renal function -follow with Nephrology as an outpatient if no acute issue -avoid nephrotoxic meds including NSAIDs Patient has no acute medical concerns at this time. Patient is not independent with a colostomy care and nursing support is availale. Ostomy care consultation ordered. Currently the hospitalist group will sign off. Appreciate this consultation. Please reconsult for any medical concerns that arise. Patient educated on: diagnosis, medication risk/benefits and medical condition Informed Consent: understands and further education needed Reason for continued inpatient stay Substantial Risk for: stable for discharge and rapid decompensation Time Spent With Patient Time: Total time managing care of this patient today ____ minutes.
[2025-02-21] MEDS: Lidocaine 4 % Patch ADH..PATCH 1 PATCH TRANSDERMA (11:46)
[2025-02-21] MEDS: hydrOXYzine HCL 25 MG TABLET PO (11:51)
[2025-02-21] MEDS: Nystatin Powder 15 GM BOTTLE 1 APPL TOPICAL (14:01)
[2025-02-21 14:25] VITALS: BP 113/53
[2025-02-21] MEDS: LORazepam 1 MG TABLET PO (17:06)
[2025-02-21] MEDS: HaloperidoL 5 MG TABLET PO (17:06)
--- NOTE | 2025-02-21 18:13 | PC.NURSE ---
Ostomy appliance changed this evening. Previous appliance removed and surrounding skin intact, stoma beefy red and moist, applied no sting barrier to surrounding stoma site and applied new bag. Pt tolerated well with no discomfort.
[2025-02-21 19:48] VITALS: BP 123/65; PULSE 85; RESP 16; TEMP 36.5; O2SAT 98
[2025-02-21] MEDS: levoFLOXacin 500 MG TABLET PO (21:45)
[2025-02-21] MEDS: Docusate Sodium 100 MG CAPSULE PO (21:45)
[2025-02-21] MEDS: Atorvastatin Calcium 10 MG TABLET PO (21:45)
[2025-02-21] MEDS: traZODone HCL 100 MG TABLET PO (21:45)
[2025-02-21] MEDS: traZODone HCL 50 MG TABLET PO (21:45)
[2025-02-22] MEDS: Omeprazole 40 MG CAPSULE.DR PO ×2 (07:02→15:40)
[2025-02-22 07:56] VITALS: BP 134/60; PULSE 103; RESP 18; TEMP 36.3; O2SAT 97
[2025-02-22] MEDS: Lidocaine 4 % Patch ADH..PATCH 1 PATCH TRANSDERMA (07:57)
[2025-02-22] MEDS: risperiDONE 0.5 MG TABLET PO (08:27)
[2025-02-22] MEDS: cloNIDine HCL 0.1 MG TABLET PO ×3 (08:27→20:48)
[2025-02-22] MEDS: Folic Acid 1 MG TABLET PO (08:27)
[2025-02-22] MEDS: Famotidine 20 MG TABLET PO ×2 (08:27→20:48)
[2025-02-22] MEDS: Metoprolol Succinate ER 25 MG TAB.ER.24H PO (08:27)
[2025-02-22] MEDS: metroNIDAZOLE 500 MG TABLET PO ×2 (08:27→20:49)
[2025-02-22] MEDS: amLODIPine Besylate 2.5 MG TABLET 7.5 MG PO (08:27)
[2025-02-22] MEDS: Lactase TABLET 1 TAB PO ×3 (08:27→17:40)
[2025-02-22] MEDS: Ferrous Sulfate 324 MG TABLET.DR PO (08:28)
[2025-02-22] MEDS: busPIRone HCl 5 MG TABLET 15 MG PO ×3 (08:28→20:49)
[2025-02-22] MEDS: Sertraline HCL 100 MG TABLET PO (08:28)
--- NOTE | 2025-02-22 09:41 | P.PNPSI_ITS ---
Subjective Subjective Date of Service: 02/22/25 Reason For Visit: PTSD Interim History: met with patient; discussed with team Patient reports doing well; discussed yesterday's outburst regarding another peer and patient said she misinterpreted something and it is now resolved. Patient says she is feeling good about discharge , going to a doctor's appointment. Patient feels that her mood is overall good. Grateful to know wound nurse is coming to assist with ostomy. Mental Status Exam Mental Status Exam Narrative: Pt is alert and oriented; behavior is in friendly, cooperative, calm, appropriately social in the milieu and mostly good behavioral control with intermittent outburst; patient is not in distress; dressed in casual attire with adequate hygiene and grooming; some remnant of bruising on her face; mood is described as good and affect congruent, bright, calm; eye contact appropriate; Speech is normal rate, volume and prosody and not pressured; no psychomotor agitation/retardation present; thought process is organized and goal directed; Thought content is on treatment, dealing with ostomy; otherwise pertinent to relevant topics and without any delusional content, paranoid ideations or grandiosity; denies any SI/HI. Denies AVH and there is no evidence of perceptual disturbance. Patients insight and judgment adequate and at baseline. Diagnostics Vital Signs (24Hr): Vital Signs - 24 hr 02/21/25 14:25 02/21/25 19:48 02/22/25 07:56 Temperature 97.7 F 97.4 F Pulse Rate 85 103 H Respiratory Rate 16 18 Blood Pressure 113/53 L 123/65 134/60 Pulse Oximetry 98 97 Oxygen Delivery Method Room Air Room Air BMI result Body Mass Index 28.9 Labs 02/19/25 07:40 02/19/25 07:40 Medications Medications Current Medications Acetaminophen (Acetaminophen 325 Mg Tablet) 975 mg PO TID PRN PRN Reason: Headache/Pain, Scale 1-10 Last Admin: 02/21/25 08:09 Dose: 975 mg Al Hydroxide/Mg Hydroxide (Magnesium Hydrox/Alum Hydrox 30 Ml Oral.Susp) 30 ml PO Q6H PRN PRN Reason: Heartburn/Nausea Albuterol Sulfate (Albuterol Sulfate 90 Mcg 8 Gm Inhaler) 2 puff INHALE Q4H PRN PRN Reason: Wheezing Amlodipine Besylate (Amlodipine Besylate 2.5 Mg Tablet) 7.5 mg PO DAILY REPLACED BY [facility]; Protocol Last Admin: 02/22/25 08:27 Dose: 7.5 mg Atorvastatin Calcium (Atorvastatin Calcium 10 Mg Tablet) 10 mg PO BEDTIME REPLACED BY [facility] Last Admin: 02/21/25 21:45 Dose: 10 mg Buspirone HCl (Buspirone Hcl 5 Mg Tablet) 15 mg PO TID REPLACED BY [facility] Last Admin: 02/22/25 08:28 Dose: 15 mg Clonidine HCl (Clonidine Hcl 0.1 Mg Tablet) 0.1 mg PO TID REPLACED BY [facility]; Protocol Last Admin: 02/22/25 08:27 Dose: 0.1 mg Dicyclomine HCl (Dicyclomine Hcl 10 Mg Capsule) 10 mg PO QIDACHS REPLACED BY [facility] Last Admin: 02/22/25 08:55 Dose: Not Given Docusate Sodium (Docusate Sodium 100 Mg Capsule) 100 mg PO BEDTIME REPLACED BY [facility] Last Admin: 02/21/25 21:45 Dose: 100 mg Famotidine (Famotidine 20 Mg Tablet) 20 mg PO BID REPLACED BY [facility] Last Admin: 02/22/25 08:27 Dose: 20 mg Ferrous Sulfate (Ferrous Sulfate 324 Mg Tablet.Dr) 324 mg PO DAILY REPLACED BY [facility] Last Admin: 02/22/25 08:28 Dose: 324 mg Folic Acid (Folic Acid 1 Mg Tablet) 1 mg PO DAILY REPLACED BY [facility] Last Admin: 02/22/25 08:27 Dose: 1 mg Hydroxyzine HCl (Hydroxyzine Hcl 25 Mg Tablet) 25 mg PO Q6H PRN PRN Reason: mild anxiety Last Admin: 02/21/25 11:51 Dose: 25 mg Lactase (Lactase Tablet) 1 tab PO TIDWM REPLACED BY [facility] Last Admin: 02/22/25 08:27 Dose: 1 tab Levofloxacin (Levofloxacin 500 Mg Tablet) 500 mg PO Q24H REPLACED BY [facility] Last Admin: 02/21/25 21:45 Dose: 500 mg Lidocaine (Lidocaine 4 % Patch Adh..Patch) 1 patch TRANSDERMA DAILY PRN; Protocol PRN Reason: arm pain Last Admin: 02/22/25 07:57 Dose: 1 patch Magnesium Hydroxide (Milk Of Magnesia 30 Ml Oral.Susp) 30 ml PO DAILY PRN PRN Reason: Constipation Metoprolol Succinate (Metoprolol Succinate Er 25 Mg Tab.Er.24h) 25 mg PO DAILY REPLACED BY [facility]; Protocol Last Admin: 02/22/25 08:27 Dose: 25 mg Metronidazole (Metronidazole 500 Mg Tablet) 500 mg PO BID REPLACED BY [facility] Last Admin: 02/22/25 08:27 Dose: 500 mg Nicotine Polacrilex (Nicotine Polacrilex 2 Mg Gum) 4 mg BUCCAL Q2H PRN PRN Reason: Nicotine Cravings Patient Own Med ( Brava Lubricating Deodorant) 1 each PO QID PRN PRN Reason: lub for colostomy Nystatin (Nystatin Powder 15 Gm Bottle) 1 appl TOPICAL BID REPLACED BY [facility]; Protocol Last Admin: 02/21/25 21:49 Dose: Not Given Omeprazole (Omeprazole 40 Mg Capsule.Dr) 40 mg PO BID@0630,1630 REPLACED BY [facility] Last Admin: 02/22/25 07:02 Dose: 40 mg Polyethylene Glycol (Polyethylene Glycol 3350 17 Gm Powd.Pack) 17 gm PO DAILY PRN PRN Reason: Constipation Risperidone (Risperidone 0.5 Mg Tablet) 0.5 mg PO DAILY REPLACED BY [facility] Last Admin: 02/22/25 08:27 Dose: 0.5 mg Sertraline HCl (Sertraline Hcl 100 Mg Tablet) 100 mg PO DAILY REPLACED BY [facility] Last Admin: 02/22/25 08:28 Dose: 100 mg Trazodone HCl (Trazodone Hcl 50 Mg Tablet) 50 mg PO BEDTIME MRX1 PRN PRN Reason: Insomnia Last Admin: 02/21/25 21:45 Dose: 50 mg Trazodone HCl (Trazodone Hcl 100 Mg Tablet) 100 mg PO BEDTIME REPLACED BY [facility] Last Admin: 02/21/25 21:45 Dose: 100 mg Allergies Allergies Allergy/AdvReac Type Severity Reaction Status Date / Time Opioids - Morphine Analogues Allergy Severe NAUSEA, Verified 02/19/25 10:30 [OPIOIDS - MORPHINE HIVES, ANALOGUES] STOPS BREATHING Assessment & Plan Assessment & Plan (1) MDD (major depressive disorder), recurrent severe, without psychosis: Status: Acute Code(s): F33.2 - Major depressive disorder, recurrent severe without psychotic features (2) PTSD (post-traumatic stress disorder): Status: Acute Code(s): F43.10 - Post-traumatic stress disorder, unspecified (3) Colostomy care: Status: Acute Code(s): Z43.3 - Encounter for attention to colostomy (4) CKD stage G3b/A1, GFR 30-44 and albumin creatinine ratio <30 mg/g: Status: Acute Code(s): N18.32 - Chronic kidney disease, stage 3b (5) Intellectual disability: Status: Acute Code(s): F79 - Unspecified intellectual disabilities (6) Adjustment disorder with mixed disturbance of emotions and conduct in remission: Status: Acute Code(s): F43.25 - Adjustment disorder with mixed disturbance of emotions and conduct Plan Patient is a 54-year-old female recently discharged from on 02/07/2025 with history of depression, anxiety, cannabis use disorder and medical history of asthma, HTN, GERD, dental extractions, ERIN, cognitive delay, radioulnar syntosis, PTSD, MDD, rheumatic mitral stenosis, lower back surgery, chronic kidney disease stage 3, rectal prolapse with necrosis requiring low anterior resection and colostomy placement January 2025 at [facility], chronic constipation which led to complications involving new colostomy (patient was treated at [facility] and then transferred here to the psych unit for self injurious behaviors). At some point after discharge, the colostomy bag came off; pt had increasing abdominal pain; pt's mother drove pt to [facility] in [place] and diagnosed with Colitis vs Diverticulitis via CT scan and was started on ceftriaxone and Flagyl. At the hospital patient reported depression and SI (self-injurious behaviors?) and now presents again for admission. Patient is somewhat a limited historian, not wanting to talk much. She says she is here because she was depressed. She said she had suicidal thoughts but now she no longer has them. Patient does not offer any other information. To other provider patient reports her only issue is that she is not yet independent with colostomy care. Formulation/clinical reasoning: Patient has been struggling with emotional reactivity and lability for several months. Patient is likely already returning to baseline. Patient has overall depression which is now chronic; Her main presenting issue seems to be adjusting to life with a colostomy bag. Will continue recent medication regimen she was discharged on from on 02/07/2025. Will monitor. Hospital course: 02/20 Patient reports that she is good has a noticeably bright affect. She denies any SI and feels that she is back to her regular self. Had a visit from her father today which she said went wonderfully. Patient shares that she had trouble sleeping and race and sports book writer scheduled trazodone and increased dose. Patient has some GERD at bedtime but already on both omeprazole and newly started famotidine. Patient observed social and friendly in the milieu and getting along well with peers. -today patient was instructing nurses on how to empty her colostomy bag 02/21 Patient reports that she good feels calm; when faced with the discussion of discharge however she said she is not ready, she is anxious and needs more help... Patient said she needs help with learning how to empty her colostomy bag and needs more help with learning to cope with her anxiety; she also said she needs to learn how to not ask people for help when she knows she can do it herself. -Patient complains of some left arm pain; race and sports book writer explained this is most likely because she is using a walker (which she does not need and does not use at home) however patient seems to be very emotionally tied to using the walker and does not want to discontinue. -will continue to titrate Zoloft which patient said she was taking up until this admission. Will place wound consult to help train patient with colostomy bag and aim for discharge later this week 02/22 Patient reports doing well; discussed yesterday's outburst regarding another peer and patient said she misinterpreted something and it is now resolved. Patient says she is feeling good about discharge , going to a doctor's appointment. Patient feels that her mood is overall good. Grateful to know wound nurse is coming to assist with ostomy. Plan: CV Q 15 minute checks Continue home medication regimen -Pt was started on Lactase and miralax prn. -Bentyl restarted on admission; will discuss with hospitalist -Increased trazodone? to 100 mg q.h.s.(patient was on 125mg at last admission) -Patient now on Risperdal 0.5 mg daily -will hold off from restarting Haldol at this time since patient appears to be doing well -titrating Zoloft pt was on 150mg as of 2 weeks ago; not sure why dc'd and given history it is likely she will benefit from this Regarding diet: -will continue with regular diet rather than low-sodium/cardiac; patient will not adhere to any diet restrictions at home so it is race and sports book writer's opinion that it is better to monitor her blood pressure and adjust BP meds rather than to expect patient to change her diet behaviors. Meds last admission: Haloperidol 2 mg PO BID@0900,1700 REPLACED BY [facility] Haloperidol 5 mg PO Q4H PRN Sertraline HCl 150 mg PO DAILY JOSE MARIA Lorazepam 1 mg PO Q4H PRN Hydroxyzine HCl ?25 mg PO Q6H PRN Trazodone HCl 25 mg PO BEDTIME JOSE MARIA Trazodone HCl 100 mg PO BEDTIME REPLACED BY [facility] Medical comorbidities: Colostomy placement January 2025 -ostomy care consultation ordered -patient does currently have enough supplies upon transfer -spoke with nursing staff and they will provide support over the weekend until patient is seen on Friday -continue bowel regimen -Bentyl was resumed upon discharge from [facility] Colitis/diverticulitis medically treated -patient continues on levofloxacin and Flagyl per discharge instructions from [facility] -avoid foods with seeds including popcorn -labs are scheduled for the a.m., review and if any concerns please reconsult hospitalist group -patient should follow-up as an outpatient with [facility] if indicated Weight loss reported 60 lb since surgery in January of 2025 -nutritional consultation ordered -ensure supplements ordered Chronic constipation -continue lactase as ordered -MiraLax p.r.n. -can consider senna but currently stool is liquid History of low back surgery with intermittent pain issues -Tylenol has been effective -patient has not been on opioids, has no history of polysubstance abuse or use of methadone or Suboxone -no indication for narcotics at this time -continue to use walker for ambulation Hypertension -continue amlodipine, metoprolol -blood pressure well controlled -recommend low-sodium diet GERD -continue omeprazole -avoid food triggers Iron-deficiency anemia -monitor H&H -continue ferrous sulfate Asthma -patient currently asymptomatic -albuterol inhaler ordered p.r.n. -duo nebs not indicated Hyperlipidemia -continue atorvastatin -low fat diet Tobacco dependence -continue Nicorette gum Chronic kidney disease stage IIIB -await a.m. labs, review renal function -follow with Nephrology as an outpatient if no acute issue -avoid nephrotoxic meds including NSAIDs Patient has no acute medical concerns at this time. Patient is not independent with a colostomy care and nursing support is availale. Ostomy care consultation ordered. Currently the hospitalist group will sign off. Appreciate this consultation. Please reconsult for any medical concerns that arise. Patient educated on: diagnosis and medical condition Informed Consent: understands Reason for continued inpatient stay Substantial Risk for: stable for discharge Time Spent With Patient Time: Total time managing care of this patient today ____ minutes.
[2025-02-22] MEDS: Nystatin Powder 15 GM BOTTLE 1 APPL TOPICAL (09:46)
[2025-02-22] MEDS: [UNRECOGNIZED DRUG - OTHER] 1 EACH PO ×3 (09:47→19:15)
[2025-02-22] MEDS: hydrOXYzine HCL 25 MG TABLET PO (09:57)
[2025-02-22] MEDS: Acetaminophen 325 MG TABLET 975 MG PO (09:57)
[2025-02-22] MEDS: Dicyclomine HCl 10 MG CAPSULE PO ×3 (10:53→20:49)
[2025-02-22 14:13] VITALS: BP 141/65
[2025-02-22 20:00] VITALS: BP 107/58; PULSE 93; TEMP 36.9; O2SAT 99
[2025-02-22 20:48] VITALS: BP 107/58
[2025-02-22] MEDS: levoFLOXacin 500 MG TABLET PO (20:48)
[2025-02-22] MEDS: Atorvastatin Calcium 10 MG TABLET PO (20:49)
[2025-02-22] MEDS: traZODone HCL 100 MG TABLET PO (20:49)
[2025-02-22] MEDS: Docusate Sodium 100 MG CAPSULE PO (20:49)
[2025-02-22] MEDS: Magnesium Hydrox/Alum Hydrox 30 ML ORAL.SUSP PO (23:37)
[2025-02-23] MEDS: hydrOXYzine HCL 25 MG TABLET PO ×3 (00:06→23:01)
[2025-02-23] MEDS: traZODone HCL 50 MG TABLET PO ×2 (00:06→01:10)
[2025-02-23 00:19] VITALS: BP 153/71; PULSE 95; O2SAT 98
[2025-02-23 08:00] VITALS: BP 140/62; PULSE 90; RESP 16; TEMP 36.5; O2SAT 100
[2025-02-23 09:25] VITALS: BP 140/80
[2025-02-23] MEDS: amLODIPine Besylate 2.5 MG TABLET 7.5 MG PO (09:25)
[2025-02-23] MEDS: Acetaminophen 325 MG TABLET 975 MG PO ×2 (09:25→20:22)
[2025-02-23] MEDS: busPIRone HCl 5 MG TABLET 15 MG PO ×3 (09:27→23:00)
[2025-02-23] MEDS: metroNIDAZOLE 500 MG TABLET PO ×2 (09:27→23:01)
[2025-02-23] MEDS: Lactase TABLET 1 TAB PO ×3 (09:27→15:57)
[2025-02-23 09:28] VITALS: BP 140/80; PULSE 76
[2025-02-23] MEDS: Metoprolol Succinate ER 25 MG TAB.ER.24H PO (09:28)
[2025-02-23] MEDS: cloNIDine HCL 0.1 MG TABLET PO ×3 (09:28→23:01)
[2025-02-23] MEDS: Omeprazole 40 MG CAPSULE.DR PO ×2 (09:28→15:51)
[2025-02-23] MEDS: Folic Acid 1 MG TABLET PO (09:28)
[2025-02-23] MEDS: Ferrous Sulfate 324 MG TABLET.DR PO (09:28)
[2025-02-23] MEDS: Sertraline HCL 100 MG TABLET PO (09:29)
[2025-02-23] MEDS: Dicyclomine HCl 10 MG CAPSULE PO ×4 (09:29→23:01)
[2025-02-23] MEDS: Famotidine 20 MG TABLET PO ×2 (09:29→23:01)
[2025-02-23] MEDS: risperiDONE 0.5 MG TABLET PO (09:29)
[2025-02-23] MEDS: Nystatin Powder 15 GM BOTTLE 1 APPL TOPICAL (09:34)
[2025-02-23] MEDS: polyethylene glycoL 3350 17 GM POWD.PACK PO (09:40)
--- NOTE | 2025-02-23 10:38 | HO.OSTOMY ---
Addendum entered by Bhavana Alejo RN 02/24/25 08:19: 02/24/25 @0820 Spoke to patient mother Isadora yesterday and discussed supplies she has at home. Advises to use supplies given to her from [facility] until follow up with outpt Ostomy nurse at in [place], she reports understanding. Ostomy pouches and brave barrier strips delivered to to give to patient for use. Original Note: Ostomy Consult: Initial 54yr old female admitted to [facility] on 02/18/25 see H&P for detailed history and admission.? Patient is known to this resume writer from recent admission and ostomy consult. Consult for leaking ostomy pouch. ?She had a loop Colostomy creation on 01/14/25 at [facility] ([facility] ?Upon entry into patient's room, she is lying in her bed, he is alert and oriented and she currently has no complaints. ?Her mother Isadora is at the bedside, introductions were completed, she is agreeable to continuing with assessment. ? We discussed the issues Claire has been having - she reports she is not yet able to independently empty her pouch - she reports she often asks staff for help and they are not avaiable to help her. This was confirmed with the direct care nurse. Provider aware. Patient and mother reports stool is very thick and often sticking to opening of pouch near stoma this is known as Pancaking to the stoma. this can be treated with thinning the stool such as Miralax. Direct care nurse will ensure she receives her Miralax today. The patients pouch was off at the time of my arrival patients mother reports stool was completely stuck under the pouch and across her abdomen. The skin was clean at the time of my arrival and assessed for suspected fungal dermatitis. She does have nystatin powder ordered and was used to treat the area under the wafer - see photo below for assessment. The pouch available at bedside was the incorrect pouch - the pouch was a hard convex pouch with a max size of 30mm her stoma was measuring today [id number]. This was likely the largest contributing factor to her pouch not staying on. She was placed into a 1 piece flat coloplast pouch # [id number] (Storeroom # [id number]). Patients mother reports she has an outpt Ostomy appointment in [place] early next week - she was encouraged to keep the appt for follow up and assessment of the skin. There are several providers / hospitals involved in her case in a short time and it is unclear what supplies have been ordered and from where. Her mother Isadora will work with the [facility] to ensure proper pouches are ordered until she sees Outpt Ostomy nurse. Her stoma is with in a crease however remains budded well above skin level - she does not need convexity at this time. She was encouraged to continue to empty her pouch with stand by assist. She was pouched in the following steps I recommend these steps until she has followup outpt. 1. Empty pouch before pouch change 2. Remove pouch using push/pull technique from top to bottom 3. Cleanse stoma and skin with tap water only - no soap or baby wipes 4. Pat dry 5. Measure stoma and cut new pouch to size of stoma. She was given the template we used today Oval - 35mmx 45mm Apply Nystatin powder, dust off excess powder, seal in with barrier wipe, allow to dry. 6. Stretch barrier seal to the size of the stoma and press onto skin around stoma (up to the edge of the stoma but not onto the stoma) 7. Press the new pouch into place and hold for several minutes (close pouch tail) 8. Empty pouch when 1/3 to 1/2 full do not let it fill to much. 9. Change pouch twice weekly on a schedule (for example, every Friday and ) and as needed for any leaking (feels like intense itch or burn at edge of stoma) 10. May order pre-cut pouches (already cut to size of stoma) once stoma measures the same size consistently. ? 11. Apply Barrier C Elastic Strips to edge of pouch to extend seal.
--- NOTE | 2025-02-23 10:53 | HO.PSYCHPN ---
Subjective Subjective Date of Service: 02/23/25 Reason For Visit: PTSD Interim History: Met with patient; discussed with team Yesterday, when patient's mother came to visit which was dysregulated for patient and patient slapped herself in the face; however dysregulation fully resolved once mother backed off. Patient otherwise reports that she is doing well and plans to discharge tomorrow. Mental Status Exam Mental Status Exam Narrative: Pt is alert and oriented; behavior is in friendly, cooperative, calm, appropriately social in the milieu and mostly good behavioral control with intermittent outburst; patient is not in distress; dressed in casual attire with adequate hygiene and grooming; some remnant of bruising on her face; mood is described as good and affect congruent, bright, calm; eye contact appropriate; Speech is normal rate, volume and prosody and not pressured; no psychomotor agitation/retardation present; thought process is organized and goal directed; Thought content is on treatment, dealing with ostomy; otherwise pertinent to relevant topics and without any delusional content, paranoid ideations or grandiosity; denies any SI/HI. Denies AVH and there is no evidence of perceptual disturbance. Patients insight and judgment adequate and at baseline. Diagnostics Vital Signs (24Hr): Vital Signs - 24 hr 02/22/25 14:13 02/22/25 20:00 02/22/25 20:48 Temperature 98.4 F Pulse Rate 93 Blood Pressure 141/65 H 107/58 L 107/58 L Pulse Oximetry 99 Oxygen Delivery Method Room Air 02/23/25 00:19 02/23/25 09:25 02/23/25 09:28 Temperature Pulse Rate 95 76 Blood Pressure 153/71 H 140/80 H 140/80 H Pulse Oximetry 98 Oxygen Delivery Method Room Air 02/23/25 09:28 Temperature Pulse Rate Blood Pressure 140/80 H Pulse Oximetry Oxygen Delivery Method BMI result Body Mass Index 28.9 Labs 02/19/25 07:40 02/19/25 07:40 Medications Medications Current Medications Acetaminophen (Acetaminophen 325 Mg Tablet) 975 mg PO TID PRN PRN Reason: Headache/Pain, Scale 1-10 Last Admin: 02/23/25 09:25 Dose: 975 mg Al Hydroxide/Mg Hydroxide (Magnesium Hydrox/Alum Hydrox 30 Ml Oral.Susp) 30 ml PO Q6H PRN PRN Reason: Heartburn/Nausea Last Admin: 02/22/25 23:37 Dose: 30 ml Albuterol Sulfate (Albuterol Sulfate 90 Mcg 8 Gm Inhaler) 2 puff INHALE Q4H PRN PRN Reason: Wheezing Amlodipine Besylate (Amlodipine Besylate 2.5 Mg Tablet) 7.5 mg PO DAILY [facility]; Protocol Last Admin: 02/23/25 09:25 Dose: 7.5 mg Atorvastatin Calcium (Atorvastatin Calcium 10 Mg Tablet) 10 mg PO BEDTIME [facility] Last Admin: 02/22/25 20:49 Dose: 10 mg Buspirone HCl (Buspirone Hcl 5 Mg Tablet) 15 mg PO TID [facility] Last Admin: 02/23/25 09:27 Dose: 15 mg Clonidine HCl (Clonidine Hcl 0.1 Mg Tablet) 0.1 mg PO TID [facility]; Protocol Last Admin: 02/23/25 09:28 Dose: 0.1 mg Dicyclomine HCl (Dicyclomine Hcl 10 Mg Capsule) 10 mg PO QIDACHS [facility] Last Admin: 02/23/25 09:29 Dose: 10 mg Docusate Sodium (Docusate Sodium 100 Mg Capsule) 100 mg PO BEDTIME [facility] Last Admin: 02/22/25 20:49 Dose: 100 mg Famotidine (Famotidine 20 Mg Tablet) 20 mg PO BID [facility] Last Admin: 02/23/25 09:29 Dose: 20 mg Ferrous Sulfate (Ferrous Sulfate 324 Mg Tablet.Dr) 324 mg PO DAILY [facility] Last Admin: 02/23/25 09:28 Dose: 324 mg Folic Acid (Folic Acid 1 Mg Tablet) 1 mg PO DAILY [facility] Last Admin: 02/23/25 09:28 Dose: 1 mg Hydroxyzine HCl (Hydroxyzine Hcl 25 Mg Tablet) 25 mg PO Q6H PRN PRN Reason: mild anxiety Last Admin: 02/23/25 09:29 Dose: 25 mg Lactase (Lactase Tablet) 1 tab PO TIDWM [facility] Last Admin: 02/23/25 09:27 Dose: 1 tab Levofloxacin (Levofloxacin 500 Mg Tablet) 500 mg PO Q24H [facility] Last Admin: 02/22/25 20:48 Dose: 500 mg Lidocaine (Lidocaine 4 % Patch Adh..Patch) 1 patch TRANSDERMA DAILY PRN; Protocol PRN Reason: arm pain Last Admin: 02/22/25 07:57 Dose: 1 patch Magnesium Hydroxide (Milk Of Magnesia 30 Ml Oral.Susp) 30 ml PO DAILY PRN PRN Reason: Constipation Metoprolol Succinate (Metoprolol Succinate Er 25 Mg Tab.Er.24h) 25 mg PO DAILY [facility]; Protocol Last Admin: 02/23/25 09:28 Dose: 25 mg Metronidazole (Metronidazole 500 Mg Tablet) 500 mg PO BID [facility] Last Admin: 02/23/25 09:27 Dose: 500 mg Nicotine Polacrilex (Nicotine Polacrilex 2 Mg Gum) 4 mg BUCCAL Q2H PRN PRN Reason: Nicotine Cravings Patient Own Med ( Brava Lubricating Deodorant) 1 each PO QID PRN PRN Reason: lub for colostomy Last Admin: 02/22/25 19:15 Dose: 1 each Nystatin (Nystatin Powder 15 Gm Bottle) 1 appl TOPICAL BID [facility]; Protocol Last Admin: 02/23/25 09:34 Dose: 1 appl Omeprazole (Omeprazole 40 Mg Capsule.Dr) 40 mg PO BID@0630,1630 [facility] Last Admin: 02/23/25 09:28 Dose: 40 mg Polyethylene Glycol (Polyethylene Glycol 3350 17 Gm Powd.Pack) 17 gm PO DAILY [facility] Risperidone (Risperidone 0.5 Mg Tablet) 0.5 mg PO DAILY [facility] Last Admin: 02/23/25 09:29 Dose: 0.5 mg Sertraline HCl (Sertraline Hcl 100 Mg Tablet) 100 mg PO DAILY [facility] Last Admin: 02/23/25 09:29 Dose: 100 mg Trazodone HCl (Trazodone Hcl 50 Mg Tablet) 50 mg PO BEDTIME MRX1 PRN PRN Reason: Insomnia Last Admin: 02/23/25 01:10 Dose: 50 mg Trazodone HCl (Trazodone Hcl 100 Mg Tablet) 100 mg PO BEDTIME [facility] Last Admin: 02/22/25 20:49 Dose: 100 mg Allergies Allergies Allergy/AdvReac Type Severity Reaction Status Date / Time Opioids - Morphine Analogues Allergy Severe NAUSEA, Verified 02/19/25 10:30 [OPIOIDS - MORPHINE HIVES, ANALOGUES] STOPS BREATHING Assessment & Plan Assessment & Plan (1) MDD (major depressive disorder), recurrent severe, without psychosis: Status: Acute Code(s): F33.2 - Major depressive disorder, recurrent severe without psychotic features (2) PTSD (post-traumatic stress disorder): Status: Acute Code(s): F43.10 - Post-traumatic stress disorder, unspecified (3) Colostomy care: Status: Acute Code(s): Z43.3 - Encounter for attention to colostomy (4) CKD stage G3b/A1, GFR 30-44 and albumin creatinine ratio <30 mg/g: Status: Acute Code(s): N18.32 - Chronic kidney disease, stage 3b (5) Intellectual disability: Status: Acute Code(s): F79 - Unspecified intellectual disabilities (6) Adjustment disorder with mixed disturbance of emotions and conduct in remission: Status: Acute Code(s): F43.25 - Adjustment disorder with mixed disturbance of emotions and conduct Plan Patient is a 54-year-old female recently discharged from on 02/07/2025 with history of depression, anxiety, cannabis use disorder and medical history of asthma, HTN, GERD, dental extractions, ERIN, cognitive delay, radioulnar syntosis, PTSD, MDD, rheumatic mitral stenosis, lower back surgery, chronic kidney disease stage 3, rectal prolapse with necrosis requiring low anterior resection and colostomy placement January 2025 at [facility], chronic constipation which led to complications involving new colostomy (patient was treated at [facility] and then transferred here to the psych unit for self injurious behaviors). At some point after discharge, the colostomy bag came off; pt had increasing abdominal pain; pt's mother drove pt to [facility] in [place] and diagnosed with Colitis vs Diverticulitis via CT scan and was started on ceftriaxone and Flagyl. At the hospital patient reported depression and SI (self-injurious behaviors?) and now presents again for admission. Patient is somewhat a limited historian, not wanting to talk much. She says she is here because she was depressed. She said she had suicidal thoughts but now she no longer has them. Patient does not offer any other information. To other provider patient reports her only issue is that she is not yet independent with colostomy care. Formulation/clinical reasoning: Patient has been struggling with emotional reactivity and lability for several months. Patient is likely already returning to baseline. Patient has overall depression which is now chronic; Her main presenting issue seems to be adjusting to life with a colostomy bag. Will continue recent medication regimen she was discharged on from on 02/07/2025. Will monitor. Hospital course: 02/20 Patient reports that she is good has a noticeably bright affect. She denies any SI and feels that she is back to her regular self. Had a visit from her father today which she said went wonderfully. Patient shares that she had trouble sleeping and engineering technical writer scheduled trazodone and increased dose. Patient has some GERD at bedtime but already on both omeprazole and newly started famotidine. Patient observed social and friendly in the milieu and getting along well with peers. -today patient was instructing nurses on how to empty her colostomy bag 02/21 Patient reports that she good feels calm; when faced with the discussion of discharge however she said she is not ready, she is anxious and needs more help... Patient said she needs help with learning how to empty her colostomy bag and needs more help with learning to cope with her anxiety; she also said she needs to learn how to not ask people for help when she knows she can do it herself. -Patient complains of some left arm pain; engineering technical writer explained this is most likely because she is using a walker (which she does not need and does not use at home) however patient seems to be very emotionally tied to using the walker and does not want to discontinue. -will continue to titrate Zoloft which patient said she was taking up until this admission. Will place wound consult to help train patient with colostomy bag and aim for discharge later this week 02/22 Patient reports doing well; discussed yesterday's outburst regarding another peer and patient said she misinterpreted something and it is now resolved. Patient says she is feeling good about discharge , going to a doctor's appointment. Patient feels that her mood is overall good. Grateful to know wound nurse is coming to assist with ostomy. 02/23 patient remains at baseline. She is not in imminent risk for harm to self or others and appropriate to return to the community for treatment. Plan: CV Q 15 minute checks Continue home medication regimen -Pt was started on Lactase and miralax prn. -Bentyl restarted on admission; will discuss with hospitalist -Increased trazodone? to 100 mg q.h.s.(patient was on 125mg at last admission) -Patient now on Risperdal 0.5 mg daily -will hold off from restarting Haldol at this time since patient appears to be doing well -titrating Zoloft pt was on 150mg as of 2 weeks ago; not sure why dc'd and given history it is likely she will benefit from this Regarding diet: -will continue with regular diet rather than low-sodium/cardiac; patient will not adhere to any diet restrictions at home so it is engineering technical writer's opinion that it is better to monitor her blood pressure and adjust BP meds rather than to expect patient to change her diet behaviors. Meds last admission: Haloperidol 2 mg PO BID@0900,1700 [facility] Haloperidol 5 mg PO Q4H PRN Sertraline HCl 150 mg PO DAILY [facility] Lorazepam 1 mg PO Q4H PRN Hydroxyzine HCl ?25 mg PO Q6H PRN Trazodone HCl 25 mg PO BEDTIME [facility] Trazodone HCl 100 mg PO BEDTIME [facility] Medical comorbidities: Colostomy placement January 2025 -ostomy care consultation ordered -patient does currently have enough supplies upon transfer -spoke with nursing staff and they will provide support over the weekend until patient is seen on Friday -continue bowel regimen -Bentyl was resumed upon discharge from [facility] Colitis/diverticulitis medically treated -patient continues on levofloxacin and Flagyl per discharge instructions from [facility] -avoid foods with seeds including popcorn -labs are scheduled for the a.m., review and if any concerns please reconsult hospitalist group -patient should follow-up as an outpatient with [facility] if indicated Weight loss reported 60 lb since surgery in January of 2025 -nutritional consultation ordered -ensure supplements ordered Chronic constipation -continue lactase as ordered -MiraLax p.r.n. -can consider senna but currently stool is liquid History of low back surgery with intermittent pain issues -Tylenol has been effective -patient has not been on opioids, has no history of polysubstance abuse or use of methadone or Suboxone -no indication for narcotics at this time -continue to use walker for ambulation Hypertension -continue amlodipine, metoprolol -blood pressure well controlled -recommend low-sodium diet GERD -continue omeprazole -avoid food triggers Iron-deficiency anemia -monitor H&H -continue ferrous sulfate Asthma -patient currently asymptomatic -albuterol inhaler ordered p.r.n. -duo nebs not indicated Hyperlipidemia -continue atorvastatin -low fat diet Tobacco dependence -continue Nicorette gum Chronic kidney disease stage IIIB -await a.m. labs, review renal function -follow with Nephrology as an outpatient if no acute issue -avoid nephrotoxic meds including NSAIDs Patient has no acute medical concerns at this time. Patient is not independent with a colostomy care and nursing support is availale. Ostomy care consultation ordered. Currently the hospitalist group will sign off. Appreciate this consultation. Please reconsult for any medical concerns that arise. Patient educated on: diagnosis, medication risk/benefits, therapeutic strategies and medical condition Informed Consent: understands Reason for continued inpatient stay Substantial Risk for: stable for discharge Time Spent With Patient Time: Total time managing care of this patient today ____ minutes.
[2025-02-23] MEDS: Lidocaine 4 % Patch ADH..PATCH 1 PATCH TRANSDERMA (12:25)
[2025-02-23 15:52] VITALS: BP 122/70
--- NOTE | 2025-02-23 19:11 | PM.PSYDC ---
DS: Providers Provider Date of Service: 02/24/25 Date of admission: 02/18/25 16:11 Date of discharge: 02/24/25 Primary care physician: Marc Longo III, MD Attending physician on admission: Tano Feliciano Consults: 02/18/25 16:29 Consult to Hospitalist Routine Comment: Consulting Provider: [facility] Hospitalists Reason For Exam: Transfer pt 02/18/25 20:13 Consult to Ostomy Care Routine 02/21/25 12:14 Consult to Wound Care Routine Reason for consultation: teaching pt to uses ostomy Attending physician on discharge: Tano Feliciano DS: Diagnosis Discharge Diagnosis (1) MDD (major depressive disorder), recurrent severe, without psychosis: Status: Acute (2) PTSD (post-traumatic stress disorder): Status: Acute (3) Colostomy care: Status: Acute (4) CKD stage G3b/A1, GFR 30-44 and albumin creatinine ratio <30 mg/g: Status: Acute (5) Intellectual disability: Status: Acute (6) Adjustment disorder with mixed disturbance of emotions and conduct in remission: Status: Acute DS: Medications Discharge Medications Home Medications: Home Medications ?Medication ?Instructions ?Recorded ?Confirmed atorvastatin 10 mg tablet 10 mg PO BEDTIME 02/18/25 02/18/25 folic acid 1 mg tablet 1 mg PO DAILY 02/18/25 02/18/25 metoprolol succinate 25 mg 25 mg PO 1XD 02/18/25 02/18/25 tablet,extended release 24 hr sennosides 8.6 mg tablet (senna) 8.6 mg PO BID 02/18/25 02/18/25 Previous Rx's ?Medication ?Instructions ?Recorded albuterol sulfate 90 mcg/actuation 2 puff inhalation Q4H PRN Wheezing 02/07/25 aerosol inhaler 30 days #1 inhaler amlodipine 5 mg tablet 7.5 mg (1.5 x 5 mg) PO DAILY 30 02/07/25 days #45 tabs buspirone 15 mg tablet 15 mg PO TID 30 days #90 tabs 02/07/25 clonidine HCl 0.1 mg tablet 0.1 mg PO TID 30 days #90 tabs 02/07/25 dicyclomine 10 mg capsule 10 mg PO QIDACHS 30 days #120 caps 02/07/25 docusate sodium 100 mg capsule 100 mg PO BEDTIME 30 days #30 caps 02/07/25 famotidine 20 mg tablet 20 mg PO BID 30 days #60 tabs 02/07/25 ferrous sulfate 325 mg (65 mg 325 mg PO DAILY 30 days #30 tabs 02/07/25 iron) tablet (FeroSul) lactase 3,000 unit tablet 3,000 unit PO TIDWM 30 days #90 02/07/25 (Dairy-Aid) tabs nystatin 100,000 unit/gram topical 1 appl topical BID 15 days #15 02/07/25 powder (Nyamyc) grams omeprazole 40 mg capsule,delayed 40 mg PO BID 30 days #60 caps 02/07/25 release Patient Own Medication 1 ea PO QID PRN ##0 02/23/25 hydroxyzine HCl 25 mg tablet 25 mg PO Q6H PRN mild anxiety 30 02/23/25 days #90 tabs polyethylene glycol 3350 17 gram 17 g PO DAILY Constipation 30 days 02/23/25 oral powder packet (Miralax) #30 ea risperidone 0.5 mg tablet 0.5 mg PO DAILY 30 days #30 tabs 02/23/25 sertraline 100 mg tablet 150 mg (1.5 x 100 mg) PO DAILY 30 02/23/25 days #45 tabs trazodone 100 mg tablet 150 mg (1.5 x 100 mg) PO BEDTIME 02/23/25 30 days #45 tabs Mental Status Exam Mental Status Exam Patient Appearance: Appropriate Patient Orientation: Person, Place, Time and Situation Level of Consciousness: Alert Patient Behavior: Talkative, Anxious, Fearful, Combative, Distractible and Good Eye Contact Mood Description: Anxious, Labile and Sad Affect Description: Labile Patient Cognition Impaired: No Ability to Follow Directions: Good Speech Pattern: Spontaneous Speech Memory Description: Intact Hallucinations: None Delusions: Not Present Thought Process: Rumination Thought Content: positive for Circumstantial, positive for Perseveration and positive for Suicidal Ideation (denies) Depressive Symptoms: Increased Anxiety, Diff. Making Decisions, Increased Irritability and Thoughts of /Suicide (denies) Abnormal Motor Activity Signs and Symptoms: Restlessness Judgement: Fair Data Data Completed and Pending Completed studies during hospitalization [Text1]: 02/19/25 02/19/25 02/19/25 07:40 07:40 07:40 WBC 7.0 RBC 3.99 L Hgb 13.8 Hct 40.1 MCV 100.5 H MCH 34.6 H MCHC 34.4 RDW 12.7 Plt Count 119 L MPV 10.9 Immature Gran % (Auto) 0.4 Neut % (Auto) 63.1 Lymph % (Auto) 23.6 [place] % (Auto) 10.5 Eos % (Auto) 2.0 Baso % (Auto) 0.4 Lymph # (Auto) 1.7 [place] # (Auto) 0.7 Eos # (Auto) 0.1 Baso # (Auto) 0.0 Abs Immat Gran (auto) 0.03 Absolute Neuts (auto) 4.4 Absolute Nucleated RBC 0.000 Nucleated RBC % (auto) 0.0 Sodium 141 Potassium 4.5 D Chloride 107 Carbon Dioxide 24 Anion Gap 15 BUN 25 H Creatinine 0.88 Estim Creat Clear Calc 60.5 Estimated GFR > 60 Random Glucose 108 Estimat Average Glucose 100 Hemoglobin A1c % 5.1 Calcium 9.9 Magnesium 2.0 Cancelled Total Bilirubin 0.4 AST 22 ALT 107 H Alkaline Phosphatase 97 Total Protein 6.8 Albumin 4.3 Triglycerides 81 Cancelled Cholesterol 168 LDL Cholesterol, Calc HDL Cholesterol Vitamin B12 Folate TSH Free T4 02/19/25 02/19/25 02/19/25 07:40 07:40 07:40 WBC RBC Hgb Hct MCV MCH MCHC RDW Plt Count MPV Immature Gran % (Auto) Neut % (Auto) Lymph % (Auto) [place] % (Auto) Eos % (Auto) Baso % (Auto) Lymph # (Auto) [place] # (Auto) Eos # (Auto) Baso # (Auto) Abs Immat Gran (auto) Absolute Neuts (auto) Absolute Nucleated RBC Nucleated RBC % (auto) Sodium Potassium Chloride Carbon Dioxide Anion Gap BUN Creatinine Estim Creat Clear Calc Estimated GFR Random Glucose Estimat Average Glucose Hemoglobin A1c % Calcium Magnesium Total Bilirubin AST ALT Alkaline Phosphatase Total Protein Albumin Triglycerides Cholesterol Cancelled LDL Cholesterol, Calc 89 Cancelled HDL Cholesterol 63 Cancelled Vitamin B12 1006 H Folate 13.4 TSH 2.00 Free T4 02/19/25 02/19/25 07:40 07:40 WBC RBC Hgb Hct MCV MCH MCHC RDW Plt Count MPV Immature Gran % (Auto) Neut % (Auto) Lymph % (Auto) [place] % (Auto) Eos % (Auto) Baso % (Auto) Lymph # (Auto) [place] # (Auto) Eos # (Auto) Baso # (Auto) Abs Immat Gran (auto) Absolute Neuts (auto) Absolute Nucleated RBC Nucleated RBC % (auto) Sodium Potassium Chloride Carbon Dioxide Anion Gap BUN Creatinine Estim Creat Clear Calc Estimated GFR Random Glucose Estimat Average Glucose Hemoglobin A1c % Calcium Magnesium Total Bilirubin AST ALT Alkaline Phosphatase Total Protein Albumin Triglycerides Cholesterol LDL Cholesterol, Calc HDL Cholesterol Vitamin B12 Folate TSH Cancelled Free T4 1.12 Cancelled DS: Summary Hospital Course Hospital Course: Patient is a 54-year-old female recently discharged from on 02/07/2025 with history of depression, anxiety, cannabis use disorder and medical history of asthma, HTN, GERD, dental extractions, ERIN, cognitive delay, radioulnar syntosis, PTSD, MDD, rheumatic mitral stenosis, lower back surgery, chronic kidney disease stage 3, rectal prolapse with necrosis requiring low anterior resection and colostomy placement January 2025 at [facility], chronic constipation which led to complications involving new colostomy (patient was treated at [facility] and then transferred here to the psych unit for self injurious behaviors). At some point after discharge, the colostomy bag came off; pt had increasing abdominal pain; pt's mother drove pt to [facility] in [place] and diagnosed with Colitis vs Diverticulitis via CT scan and was started on ceftriaxone and Flagyl. At the hospital patient reported depression and SI (self-injurious behaviors?) and now presents again for admission. Hospital course/Formulation/clinical reasoning: On the 1st day of admission, patient was anxious reporting depression; however she said SI had resolved. Patient quickly recovered and returned to baseline. She reported being in a good mood with a noticeably bright affect. She denies any SI and feels that she is back to her regular self. Had a visit from her father today which she said went wonderfully and has been getting along well with peers, and engaged in treatment. Patient has been struggling with emotional reactivity and lability for several months; for this admission, her main presenting issue seems to be adjusting to life with a colostomy bag. Her recent medication regimen she was discharged on from on 02/07/2025 (other than Haldol as pt was stable w/out it). Patient remained in a good mood. She had 1 dysregulated moment where she misinterpreted a peer and another dysregulated moment when her mother visited however patient was redirectable; patient insisted she needed a walker (though patient fully capable of walking well on her own) and was allowed to use one since she seemed emotionally tied to it. Otherwise she remained in good behavioral and impulse control, in good mood and future oriented; she said her main need was to learn how to take care of her ostomy by herself. Patient received ostomy care instruction. She felt ready to return home and attend her doctor's appointment. Patient was not in imminent risk for harm to self or others and appropriate to return to the community for treatment. Time spent discussing smoking cessation with patient: 3 to 10 minutes Status at Discharge Functional status at discharge: independent ambulation Overall status at discharge: patient is back to baseline Time Spent with Patient Time attestation: Total time managing care of this patient today ____ minutes. Time spent: Less than 30 minutes Discharge Plan Discharge Anticipated Discharge Date/Time: 02/24/25 09:00 Patient Disposition: Home, Self-Care Discharge Diagnosis: Adjustment disorder, with mixed disturbance of mood and conduct in full remission Referrals: Psychiatrist: Dr. Colin ([facility]) [Other] - 03/03/25 8:30 am (Appointment is in person at the [place] office ) Psychiatrist: Dr. Colin ([facility]) [Other] - 03/29/25 9:30 am (Appointment is in person at the [place] office ) Wheat Shipper: Ayleen ([employer] [facility]) [Other] - 1 Week (Ayleen will reach out to schedule a visit at home to check-in; please call Ayleen for support as needed ) DDS Wheat Shipper: Adina [Other] - 1 Week (Call Adina as needed for support or with questions regarding additional services or needs ) Therapist: Christina ([facility]) [Other] - 1 Week (No return call from Christina to schedule follow-up; please follow up to schedule next therapy appointment and advocate for weekly sessions ) VNA: Maria Alejandra Toure [Other] - 1 Week (You should be receiving a call from the nurse within 24 hours; if you have not heard by 02/25 early afternoon, please call the above number ) Marc Longo III, MD [Primary Care Provider] - 02/24/25 10:30 am Discharge Medications: New hydroxyzine HCl 25 mg Tablet 25 mg PO Q6H PRN (Reason: mild anxiety) 30 Days Qty: 90 0RF Patient Own Medication 1 ea PO QID PRNQty: 0 0RF Continued clonidine HCl 0.1 mg Tablet 0.1 mg PO TID 30 Days Qty: 90 0RF Protocol: Hold for SBP< HOLD for SBP < : 90 dicyclomine 10 mg Capsule 10 mg PO QIDACHS 30 Days Qty: 120 0RF famotidine 20 mg Tablet 20 mg PO BID 30 Days Qty: 60 0RF lactase [Dairy-Aid] 3,000 unit Tablet 3,000 unit PO TIDWM 30 Days Qty: 90 0RF docusate sodium 100 mg Capsule 100 mg PO BEDTIME 30 Days Qty: 30 0RF nystatin [Nyamyc] 100,000 unit/gram Powder 1 appl topical BID 15 Days Qty: 15 0RF Protocol: Apply to: Apply to: affected areas of the breasts/chest amlodipine 5 mg tablet 7.5 mg PO DAILY 30 Days Qty: 45 0RF omeprazole 40 mg capsule,delayed release(DR/EC) 40 mg PO BID 30 Days Qty: 60 0RF ferrous sulfate [FeroSul] 325 mg (65 mg iron) tablet 325 mg PO DAILY 30 Days Qty: 30 0RF Rx Instructions: with breakfast albuterol sulfate 90 mcg/actuation HFA aerosol inhaler 2 puff inhalation Q4H PRN (Reason: Wheezing) 30 Days Qty: 1 0RF buspirone 15 mg tablet 15 mg PO TID 30 Days Qty: 90 0RF sennosides [senna] 8.6 mg Tablet 8.6 mg PO BID atorvastatin 10 mg Tablet 10 mg PO BEDTIME folic acid 1 mg Tablet 1 mg PO DAILY metoprolol succinate 25 mg Tablet Extended Release 24 Hr 25 mg PO 1XD sertraline 100 mg tablet 150 mg PO DAILY 30 Days Qty: 45 0RF risperidone 0.5 mg Tablet 0.5 mg PO DAILY 30 Days Qty: 30 0RF Changed polyethylene glycol 3350 [Miralax] 17 gram Powder In Packet 17 g PO DAILY 30 Days Qty: 30 0RF trazodone 100 mg tablet 150 mg PO BEDTIME 30 Days Qty: 45 0RF Discontinued haloperidol 1 mg Tablet 2 mg PO BID@0900,1700 30 Days Qty: 120 0RF hydroxyzine HCl 25 mg Tablet 50 mg PO BID PRN (Reason: mild anxiety) 30 Days Qty: 120 0RF metronidazole 500 mg Tablet 500 mg PO BID ciprofloxacin HCl 500 mg Tablet 500 mg PO 2XD Discharge Orders: Discharge Order (Routine); Ordered 02/24/25 Ordered By: Tano Feliciano Diet: Regular diet Activity on Discharge: As tolerated Stand Alone Forms: Patient Portal Discharge page, Community Support Print Language: Swedish Activity Restrictions/Additional Instructions: Ostomy Instructions: Empty pouch often with 1/3-1/2 full do not let it fill too much this will be to heavy for the pouch and may lead to more leaking. Do not use adhesive removed until follow up with out patient ostomy nurse. 1. Empty pouch before pouch change 2. Remove pouch using push/pull technique from top to bottom 3. Cleanse stoma and skin with tap water only - no soap or baby wipes 4. Pat dry 5. Measure stoma and cut new pouch to size of stoma. She was given the template we used today Oval - 35mmx 45mm Apply Nystatin powder, dust off excess powder, seal in with barrier wipe, allow to dry. 6. Stretch barrier seal to the size of the stoma and press onto skin around stoma (up to the edge of the stoma but not onto the stoma) 7. Press the new pouch into place and hold for several minutes (close pouch tail) 8. Empty pouch when 1/3 to 1/2 full do not let it fill to much. 9. Change pouch twice weekly on a schedule (for example, every Friday and ) and as needed for any leaking (feels like intense itch or burn at edge of stoma) 10. May order pre-cut pouches (already cut to size of stoma) once stoma measures the same size consistently. ? 11. Apply Barrier C Elastic Strips to edge of pouch to extend seal. [facility] [phone] Customer Service Numbers for different brands of pouch makers: [employer]: tel: [email or web address]: tel: [email or web address]: ? www.[email or web address] Medicalcoloplast.[email or web address] OSTOMY Supplies Home Delivery [facility]: ? ext. [id number]: ;[phone] ?[email or web address] [email or web address] [facility] [employer]: ? tel: ??? [email or web address]/ Care Plan Goals: Maintain mood and safe behaviors Take medications as prescribed Practice coping skills Continue with outpatient providers and reach out to them as needed Health Concerns: Mood stability and behaviors Ostomy GERD Asthma Plan of Treatment: Follow up with your PCP, psychiatric provider and other outpatient providers regarding above concerns Take medications as prescribed Assessment: Risk assessment at time of discharge:? Patient was interviewed prior to discharge and found to be fully oriented and without any SI or HI. Patient has improved insight and judgment and wants to continue treatment. Patient is not in imminent risk of harm to self or others and has a safety plan that includes presenting to the closest ER or calling 911 if feeling unsafe.? Patient has been observed closely by nursing and unit staff throughout admission; patient has not engaged in any behaviors that suggest dangerousness to self or others and has demonstrated appropriate behaviors and impulse control Discharge Date/Time: 02/24/25 11:40
[2025-02-23 19:46] VITALS: BP 121/51; PULSE 85; RESP 16; TEMP 36.6; O2SAT 99
[2025-02-23] MEDS: Docusate Sodium 100 MG CAPSULE PO (23:01)
[2025-02-23] MEDS: Atorvastatin Calcium 10 MG TABLET PO (23:01)
[2025-02-23] MEDS: traZODone HCL 100 MG TABLET PO (23:01)
[2025-02-23] MEDS: levoFLOXacin 500 MG TABLET PO (23:01)
[2025-02-24 08:00] VITALS: BP 139/73; PULSE 110; RESP 16; TEMP 36.6; O2SAT 97
[2025-02-24] MEDS: polyethylene glycoL 3350 17 GM POWD.PACK PO (08:45)
[2025-02-24] MEDS: Acetaminophen 325 MG TABLET 975 MG PO (08:45)
[2025-02-24] MEDS: risperiDONE 0.5 MG TABLET PO ×2 (08:45→10:20)
[2025-02-24] MEDS: Sertraline HCL 100 MG TABLET PO (08:45)
[2025-02-24] MEDS: Famotidine 20 MG TABLET PO (08:45)
[2025-02-24 08:46] VITALS: BP 139/73
[2025-02-24] MEDS: amLODIPine Besylate 2.5 MG TABLET 7.5 MG PO (08:46)
[2025-02-24] MEDS: Lactase TABLET 1 TAB PO (08:46)
[2025-02-24 08:47] VITALS: BP 139/73; PULSE 110
[2025-02-24] MEDS: cloNIDine HCL 0.1 MG TABLET PO (08:47)
[2025-02-24] MEDS: Dicyclomine HCl 10 MG CAPSULE PO (08:47)
[2025-02-24] MEDS: Folic Acid 1 MG TABLET PO (08:47)
[2025-02-24] MEDS: metroNIDAZOLE 500 MG TABLET PO (08:47)
[2025-02-24] MEDS: Omeprazole 40 MG CAPSULE.DR PO (08:47)
[2025-02-24] MEDS: Metoprolol Succinate ER 25 MG TAB.ER.24H PO (08:47)
[2025-02-24] MEDS: busPIRone HCl 5 MG TABLET 15 MG PO (08:47)
[2025-02-24] MEDS: Ferrous Sulfate 324 MG TABLET.DR PO (08:48)
[2025-02-24] MEDS: hydrOXYzine HCL 25 MG TABLET PO (10:12)
[2025-02-24] MEDS: LORazepam 0.5 MG TABLET PO (10:20)
--- NOTE | 2025-02-24 11:09 | HO.PSYCHPN ---
Subjective Subjective Date of Service: 02/24/25 Reason For Visit: PTSD Subjective Notes: Conditional Voluntary Healthcare Proxy: No Guardianship: No Medical Problems Affecting Mental Status: No Interim History: Per team pt with reported lability, hostility this a.m. Parents presented to take her home as discharge was scheduled and pt began to hit herself, express agitation. Parents asked for a family meeting, unsure they could take pt home with these sx. Lorazepam 0.5 mg and Risperdal 0.5 mg given PO- pt accepted these. Met with parents and Mala Burton [facility]-parents report when a change is made, pt becomes anxious, upset, more labile and tends to respond. Also, as she has been off cannabis for ~60 days all agreed that it is possible she is experiencing feelings previously concealed with cannabis. Parents wanting to try to take her home today. Pt joined the meeting, tearful-expressing that she loves her family and does not want to be a burden, but becomes agitated with chaos and change as it makes her anxious and she does not like the feeling. Also, expresses feeling overwhelmed with the colostomy. Family offered support. All agreed pt will discharge today. Medication Compliance: Yes Side effects from medications: No Attending Groups: No Review of Systems Acute medical concerns: No Medical Review of Systems: unchanged Review of Systems Review of Systems Overwhelmed with colostomy Mental Status Exam Mental Status Exam Patient Appearance: Appropriate Patient Orientation: Person, Place, Time and Situation Level of Consciousness: Alert Patient Behavior: Talkative, Anxious, Fearful, Combative, Distractible and Good Eye Contact Mood Description: Anxious, Labile and Sad Affect Description: Labile Patient Cognition Impaired: No Ability to Follow Directions: Good Speech Pattern: Spontaneous Speech Memory Description: Intact Hallucinations: None Delusions: Not Present Thought Process: Rumination Thought Content: positive for Circumstantial, positive for Perseveration and positive for Suicidal Ideation (denies) Depressive Symptoms: Increased Anxiety, Diff. Making Decisions, Increased Irritability and Thoughts of /Suicide (denies) Abnormal Motor Activity Signs and Symptoms: Restlessness Judgement: Fair Diagnostics Vital Signs (24Hr): Vital Signs - 24 hr 02/23/25 15:52 02/23/25 19:46 02/24/25 08:46 Temperature 97.8 F Pulse Rate 85 Respiratory Rate 16 Blood Pressure 122/70 121/51 L 139/73 Pulse Oximetry 99 Oxygen Delivery Method Room Air 02/24/25 08:47 02/24/25 08:47 Temperature Pulse Rate 110 H Respiratory Rate Blood Pressure 139/73 139/73 Pulse Oximetry Oxygen Delivery Method BMI result Body Mass Index 28.9 Labs 02/19/25 07:40 02/19/25 07:40 Medications Medications Current Medications Acetaminophen (Acetaminophen 325 Mg Tablet) 975 mg PO TID PRN PRN Reason: Headache/Pain, Scale 1-10 Last Admin: 02/24/25 08:45 Dose: 975 mg Al Hydroxide/Mg Hydroxide (Magnesium Hydrox/Alum Hydrox 30 Ml Oral.Susp) 30 ml PO Q6H PRN PRN Reason: Heartburn/Nausea Last Admin: 02/22/25 23:37 Dose: 30 ml Albuterol Sulfate (Albuterol Sulfate 90 Mcg 8 Gm Inhaler) 2 puff INHALE Q4H PRN PRN Reason: Wheezing Amlodipine Besylate (Amlodipine Besylate 2.5 Mg Tablet) 7.5 mg PO DAILY [facility]; Protocol Last Admin: 02/24/25 08:46 Dose: 7.5 mg Atorvastatin Calcium (Atorvastatin Calcium 10 Mg Tablet) 10 mg PO BEDTIME [facility] Last Admin: 02/23/25 23:01 Dose: 10 mg Buspirone HCl (Buspirone Hcl 5 Mg Tablet) 15 mg PO TID [facility] Last Admin: 02/24/25 08:47 Dose: 15 mg Clonidine HCl (Clonidine Hcl 0.1 Mg Tablet) 0.1 mg PO TID [facility]; Protocol Last Admin: 02/24/25 08:47 Dose: 0.1 mg Dicyclomine HCl (Dicyclomine Hcl 10 Mg Capsule) 10 mg PO QIDACHS [facility] Last Admin: 02/24/25 08:47 Dose: 10 mg Docusate Sodium (Docusate Sodium 100 Mg Capsule) 100 mg PO BEDTIME [facility] Last Admin: 02/23/25 23:01 Dose: 100 mg Famotidine (Famotidine 20 Mg Tablet) 20 mg PO BID [facility] Last Admin: 02/24/25 08:45 Dose: 20 mg Ferrous Sulfate (Ferrous Sulfate 324 Mg Tablet.) 324 mg PO DAILY [facility] Last Admin: 02/24/25 08:48 Dose: 324 mg Folic Acid (Folic Acid 1 Mg Tablet) 1 mg PO DAILY [facility] Last Admin: 02/24/25 08:47 Dose: 1 mg Hydroxyzine HCl (Hydroxyzine Hcl 25 Mg Tablet) 25 mg PO Q6H PRN PRN Reason: mild anxiety Last Admin: 02/24/25 10:12 Dose: 25 mg Lactase (Lactase Tablet) 1 tab PO TIDWM [facility] Last Admin: 02/24/25 08:46 Dose: 1 tab Levofloxacin (Levofloxacin 500 Mg Tablet) 500 mg PO Q24H [facility] Last Admin: 02/23/25 23:01 Dose: 500 mg Lidocaine (Lidocaine 4 % Patch Adh..Patch) 1 patch TRANSDERMA DAILY PRN; Protocol PRN Reason: arm pain Last Admin: 02/23/25 12:25 Dose: 1 patch Magnesium Hydroxide (Milk Of Magnesia 30 Ml Oral.Susp) 30 ml PO DAILY PRN PRN Reason: Constipation Metoprolol Succinate (Metoprolol Succinate Er 25 Mg Tab.Er.24h) 25 mg PO DAILY [facility]; Protocol Last Admin: 02/24/25 08:47 Dose: 25 mg Metronidazole (Metronidazole 500 Mg Tablet) 500 mg PO BID [facility] Last Admin: 02/24/25 08:47 Dose: 500 mg Nicotine Polacrilex (Nicotine Polacrilex 2 Mg Gum) 4 mg BUCCAL Q2H PRN PRN Reason: Nicotine Cravings Patient Own Med ( Brava Lubricating Deodorant) 1 each PO QID PRN PRN Reason: lub for colostomy Last Admin: 02/22/25 19:15 Dose: 1 each Nystatin (Nystatin Powder 15 Gm Bottle) 1 appl TOPICAL BID [facility]; Protocol Last Admin: 02/23/25 23:59 Dose: Not Given Omeprazole (Omeprazole 40 Mg Capsule.Dr) 40 mg PO BID@0630,1630 [facility] Last Admin: 02/24/25 08:47 Dose: 40 mg Polyethylene Glycol (Polyethylene Glycol 3350 17 Gm Powd.Pack) 17 gm PO DAILY [facility] Last Admin: 02/24/25 08:45 Dose: 17 gm Risperidone (Risperidone 0.5 Mg Tablet) 0.5 mg PO DAILY [facility] Last Admin: 02/24/25 08:45 Dose: 0.5 mg Sertraline HCl (Sertraline Hcl 100 Mg Tablet) 100 mg PO DAILY [facility] Last Admin: 02/24/25 08:45 Dose: 100 mg Trazodone HCl (Trazodone Hcl 50 Mg Tablet) 50 mg PO BEDTIME MRX1 PRN PRN Reason: Insomnia Last Admin: 02/23/25 01:10 Dose: 50 mg Trazodone HCl (Trazodone Hcl 100 Mg Tablet) 100 mg PO BEDTIME [facility] Last Admin: 02/23/25 23:01 Dose: 100 mg Allergies Allergies Allergy/AdvReac Type Severity Reaction Status Date / Time Opioids - Morphine Analogues Allergy Severe NAUSEA, Verified 02/19/25 10:30 [OPIOIDS - MORPHINE HIVES, ANALOGUES] STOPS BREATHING Assessment & Plan Assessment & Plan (1) MDD (major depressive disorder), recurrent severe, without psychosis: Status: Acute Code(s): F33.2 - Major depressive disorder, recurrent severe without psychotic features (2) PTSD (post-traumatic stress disorder): Status: Acute Code(s): F43.10 - Post-traumatic stress disorder, unspecified (3) Colostomy care: Status: Acute Code(s): Z43.3 - Encounter for attention to colostomy (4) CKD stage G3b/A1, GFR 30-44 and albumin creatinine ratio <30 mg/g: Status: Acute Code(s): N18.32 - Chronic kidney disease, stage 3b (5) Intellectual disability: Status: Acute Code(s): F79 - Unspecified intellectual disabilities (6) Adjustment disorder with mixed disturbance of emotions and conduct in remission: Status: Acute Code(s): F43.25 - Adjustment disorder with mixed disturbance of emotions and conduct Plan Patient is a 54-year-old female recently discharged from on 02/07/2025 with history of depression, anxiety, cannabis use disorder and medical history of asthma, HTN, GERD, dental extractions, ERIN, cognitive delay, radioulnar syntosis, PTSD, MDD, rheumatic mitral stenosis, lower back surgery, chronic kidney disease stage 3, rectal prolapse with necrosis requiring low anterior resection and colostomy placement January 2025 at [facility], chronic constipation which led to complications involving new colostomy (patient was treated at [facility] and then transferred here to the psych unit for self injurious behaviors). At some point after discharge, the colostomy bag came off; pt had increasing abdominal pain; pt's mother drove pt to [facility] in [place] and diagnosed with Colitis vs Diverticulitis via CT scan and was started on ceftriaxone and Flagyl. At the hospital patient reported depression and SI (self-injurious behaviors?) and now presents again for admission. Patient is somewhat a limited historian, not wanting to talk much. She says she is here because she was depressed. She said she had suicidal thoughts but now she no longer has them. Patient does not offer any other information. To other provider patient reports her only issue is that she is not yet independent with colostomy care. Formulation/clinical reasoning: Patient has been struggling with emotional reactivity and lability for several months. Patient is likely already returning to baseline. Patient has overall depression which is now chronic; Her main presenting issue seems to be adjusting to life with a colostomy bag. Will continue recent medication regimen she was discharged on from on 02/07/2025. Will monitor. Hospital course: 02/20 Patient reports that she is good has a noticeably bright affect. She denies any SI and feels that she is back to her regular self. Had a visit from her father today which she said went wonderfully. Patient shares that she had trouble sleeping and global technical writer scheduled trazodone and increased dose. Patient has some GERD at bedtime but already on both omeprazole and newly started famotidine. Patient observed social and friendly in the milieu and getting along well with peers. -today patient was instructing nurses on how to empty her colostomy bag 02/21 Patient reports that she good feels calm; when faced with the discussion of discharge however she said she is not ready, she is anxious and needs more help... Patient said she needs help with learning how to empty her colostomy bag and needs more help with learning to cope with her anxiety; she also said she needs to learn how to not ask people for help when she knows she can do it herself. -Patient complains of some left arm pain; global technical writer explained this is most likely because she is using a walker (which she does not need and does not use at home) however patient seems to be very emotionally tied to using the walker and does not want to discontinue. -will continue to titrate Zoloft which patient said she was taking up until this admission. Will place wound consult to help train patient with colostomy bag and aim for discharge later this week 02/22 Patient reports doing well; discussed yesterday's outburst regarding another peer and patient said she misinterpreted something and it is now resolved. Patient says she is feeling good about discharge , going to a doctor's appointment. Patient feels that her mood is overall good. Grateful to know wound nurse is coming to assist with ostomy. 02/24: Pt with anxiety and agitation this a.m. Required prn Lorazapem/Risperdal with positive effect. Pt will stay with scheduled discharge plan with her parents. Plan: CV Q 15 minute checks Continue home medication regimen -Pt was started on Lactase and miralax prn. -Bentyl restarted on admission; will discuss with hospitalist -Increased trazodone? to 100 mg q.h.s.(patient was on 125mg at last admission) -Patient now on Risperdal 0.5 mg daily -will hold off from restarting Haldol at this time since patient appears to be doing well -titrating Zoloft pt was on 150mg as of 2 weeks ago; not sure why dc'd and given history it is likely she will benefit from this Regarding diet: -will continue with regular diet rather than low-sodium/cardiac; patient will not adhere to any diet restrictions at home so it is global technical writer's opinion that it is better to monitor her blood pressure and adjust BP meds rather than to expect patient to change her diet behaviors. Meds last admission: Haloperidol 2 mg PO BID@0900,1700 [facility] Haloperidol 5 mg PO Q4H PRN Sertraline HCl 150 mg PO DAILY [facility] Lorazepam 1 mg PO Q4H PRN Hydroxyzine HCl ?25 mg PO Q6H PRN Trazodone HCl 25 mg PO BEDTIME [facility] Trazodone HCl 100 mg PO BEDTIME [facility] Medical comorbidities: Colostomy placement January 2025 -ostomy care consultation ordered -patient does currently have enough supplies upon transfer -spoke with nursing staff and they will provide support over the weekend until patient is seen on Friday -continue bowel regimen -Bentyl was resumed upon discharge from [facility] Colitis/diverticulitis medically treated -patient continues on levofloxacin and Flagyl per discharge instructions from [facility] -avoid foods with seeds including popcorn -labs are scheduled for the a.m., review and if any concerns please reconsult hospitalist group -patient should follow-up as an outpatient with [facility] if indicated Weight loss reported 60 lb since surgery in January of 2025 -nutritional consultation ordered -ensure supplements ordered Chronic constipation -continue lactase as ordered -MiraLax p.r.n. -can consider senna but currently stool is liquid History of low back surgery with intermittent pain issues -Tylenol has been effective -patient has not been on opioids, has no history of polysubstance abuse or use of methadone or Suboxone -no indication for narcotics at this time -continue to use walker for ambulation Hypertension -continue amlodipine, metoprolol -blood pressure well controlled -recommend low-sodium diet GERD -continue omeprazole -avoid food triggers Iron-deficiency anemia -monitor H&H -continue ferrous sulfate Asthma -patient currently asymptomatic -albuterol inhaler ordered p.r.n. -duo nebs not indicated Hyperlipidemia -continue atorvastatin -low fat diet Tobacco dependence -continue Nicorette gum Chronic kidney disease stage IIIB -await a.m. labs, review renal function -follow with Nephrology as an outpatient if no acute issue -avoid nephrotoxic meds including NSAIDs Patient has no acute medical concerns at this time. Patient is not independent with a colostomy care and nursing support is availale. Ostomy care consultation ordered. Currently the hospitalist group will sign off. Appreciate this consultation. Please reconsult for any medical concerns that arise. Reason for continued inpatient stay Substantial Risk for: rapid decompensation Time Spent With Patient Time: Total time managing care of this patient today ____ minutes.
== END 2025-02-24 11:40 | disposition home or self-care (01) | DRG 885 ==
PROVIDERS: Clinical Nurse Specialist Psychiatric/Mental Health, Adult; Nurse Practitioner Family; Admitting Provider Psychiatry & Neurology Psychiatry; PCP Internal Medicine; Visit Provider Psychiatry & Neurology Psychiatry
DX: F33.2 Major depressive disorder, recurrent severe without psychotic features (principal); R45.851 Suicidal ideations; I12.9 Hypertensive chronic kidney disease with stage 1 through stage 4 chronic kidney disease, or unspecified chronic kidney disease; K59.09 Other constipation; Z93.3 Colostomy status; K21.9 Gastro-esophageal reflux disease without esophagitis; F79 Unspecified intellectual disabilities; F43.25 Adjustment disorder with mixed disturbance of emotions and conduct; D50.9 Iron deficiency anemia, unspecified; R63.4 Abnormal weight loss; Z68.28 Body mass index [BMI] 28.0-28.9, adult; J45.909 Unspecified asthma, uncomplicated; F17.210 Nicotine dependence, cigarettes, uncomplicated; Z71.6 Tobacco abuse counseling; N18.32 Chronic kidney disease, stage 3b; Z91.52 Personal history of nonsuicidal self-harm; Z79.899 Other long term (current) drug therapy
CPT/HCPCS: 36415; 80053; 80061; 82607; 82746; 83036; 83735; 84439; 84443; 85025; 93005

== ENCOUNTER 2025-02-18 16:11 | Outpatient (BNV) | payer MEDICARE, MEDICAID, SELFPAY | END 2025-02-19 08:00 | PROVIDERS: Admitting Provider Psychiatry & Neurology Psychiatry; PCP Internal Medicine; Visit Provider Internal Medicine Cardiovascular Disease | DX: R94.31 Abnormal electrocardiogram [ECG] [EKG] (principal); Z13.6 Encounter for screening for cardiovascular disorders | CPT/HCPCS: 93010 ==

== ENCOUNTER → 2025-02-18 16:11 | Outpatient (BNV) | payer MEDICARE, MEDICAID, SELFPAY | PROVIDERS: Admitting Provider Psychiatry & Neurology Psychiatry; PCP Internal Medicine; Visit Provider Psychiatry & Neurology Psychiatry | DX: F33.2 Major depressive disorder, recurrent severe without psychotic features (principal); F43.11 Post-traumatic stress disorder, acute; Z93.3 Colostomy status; N18.32 Chronic kidney disease, stage 3b; F79 Unspecified intellectual disabilities; F43.25 Adjustment disorder with mixed disturbance of emotions and conduct | CPT/HCPCS: 90792; 99231; 99232; 99238; 99499 ==

== ENCOUNTER → 2025-02-18 16:11 | Outpatient (BNV) | payer MEDICARE, MEDICAID, SELFPAY | PROVIDERS: Admitting Provider Psychiatry & Neurology Psychiatry; PCP Internal Medicine; Visit Provider Nurse Practitioner Family | DX: Z43.3 Encounter for attention to colostomy (principal); K52.9 Noninfective gastroenteritis and colitis, unspecified; I10 Essential (primary) hypertension; K21.9 Gastro-esophageal reflux disease without esophagitis; D50.9 Iron deficiency anemia, unspecified; J45.909 Unspecified asthma, uncomplicated; K59.00 Constipation, unspecified; E78.5 Hyperlipidemia, unspecified; F17.200 Nicotine dependence, unspecified, uncomplicated; N18.32 Chronic kidney disease, stage 3b; R63.4 Abnormal weight loss | CPT/HCPCS: 99223 ==

== ENCOUNTER 2025-02-28 18:08 | Emergency (ER) | payer MEDICARE, MEDICAID, SELFPAY ==
--- NOTE | ~2025-02-28 | XR_ITS ---
CLINICAL HISTORY: shortness of breath 2 view chest x-ray Comparison: None Findings: Left perihilar linear atelectasis or scar. No other acute infiltrate identified. No pneumothorax. Heart size normal. No acute bony abnormalities. Impression: Left perihilar atelectasis versus scar This document has been electronically signed by: Aly Moran MD on 02/28/2025 19:40:30
[2025-02-28 18:13] VITALS: BP 152/62; PULSE 83; RESP 18; O2SAT 95; BMI 27.9
--- NOTE | 2025-02-28 18:14 | ED_ITS ---
HPI - General Adult General Chief complaint: Extremity Injury, Lower Stated complaint: both legs painfully swollen and peeling Time Seen by Provider: 02/28/25 20:56 Source: patient and family Limitations: other (Intellectual disability, psychiatric illness) History of Present Illness ED Provider: Shana Smith PA-C HPI narrative: 54-year-old female with a history of intellectual disability, adjustment disorder with mixed disturbance of emotion and conduct, PTSD, depression, chronic kidney disease, hyperlipidemia, hypertension, who presents with bilateral lower extremity swelling x1 week. Patient is here with her mother, they report that the patient has developed peripheral edema, the patient has been complaining of leg pain. Associated unintentional weight gain over the past month. Denies chest pain, shortness of breath or orthopnea. Denies redness of lower extremities or fever. The patient's psychiatric medications have recently been adjusted, the mother called the pharmacy to see if peripheral edema was part of the any of the side-effect profiles they were not. No new medication changes in regard to her antihypertensive medications. Related Data Home Medications ?Medication ?Instructions ?Recorded ?Confirmed atorvastatin 10 mg tablet 10 mg PO BEDTIME 02/18/25 02/18/25 folic acid 1 mg tablet 1 mg PO DAILY 02/18/25 02/18/25 metoprolol succinate 25 mg 25 mg PO 1XD 02/18/25 02/18/25 tablet,extended release 24 hr sennosides 8.6 mg tablet (senna) 8.6 mg PO BID 02/18/25 02/18/25 Previous Rx's ?Medication ?Instructions ?Recorded albuterol sulfate 90 mcg/actuation 2 puff inhalation Q4H PRN Wheezing 02/07/25 aerosol inhaler 30 days #1 inhaler amlodipine 5 mg tablet 7.5 mg (1.5 x 5 mg) PO DAILY 30 02/07/25 days #45 tabs buspirone 15 mg tablet 15 mg PO TID 30 days #90 tabs 02/07/25 clonidine HCl 0.1 mg tablet 0.1 mg PO TID 30 days #90 tabs 02/07/25 dicyclomine 10 mg capsule 10 mg PO QIDACHS 30 days #120 caps 02/07/25 docusate sodium 100 mg capsule 100 mg PO BEDTIME 30 days #30 caps 02/07/25 famotidine 20 mg tablet 20 mg PO BID 30 days #60 tabs 02/07/25 ferrous sulfate 325 mg (65 mg 325 mg PO DAILY 30 days #30 tabs 02/07/25 iron) tablet (FeroSul) lactase 3,000 unit tablet 3,000 unit PO TIDWM 30 days #90 02/07/25 (Dairy-Aid) tabs nystatin 100,000 unit/gram topical 1 appl topical BID 15 days #15 02/07/25 powder (Nyamyc) grams omeprazole 40 mg capsule,delayed 40 mg PO BID 30 days #60 caps 02/07/25 release Patient Own Medication 1 ea PO QID PRN ##0 02/23/25 hydroxyzine HCl 25 mg tablet 25 mg PO Q6H PRN mild anxiety 30 02/23/25 days #90 tabs polyethylene glycol 3350 17 gram 17 g PO DAILY Constipation 30 days 02/23/25 oral powder packet (Miralax) #30 ea risperidone 0.5 mg tablet 0.5 mg PO DAILY 30 days #30 tabs 02/23/25 sertraline 100 mg tablet 150 mg (1.5 x 100 mg) PO DAILY 30 02/23/25 days #45 tabs trazodone 100 mg tablet 150 mg (1.5 x 100 mg) PO BEDTIME 02/23/25 30 days #45 tabs Allergies Allergy/AdvReac Type Severity Reaction Status Date / Time Opioids - Morphine Analogues Allergy Severe NAUSEA, Verified 02/28/25 18:15 [OPIOIDS - MORPHINE HIVES, ANALOGUES] STOPS BREATHING Review of Systems 2 Review of Systems: Yes all other systems are reviewed and are negative Constitutional: Constitutional: Denies fatigue and Denies fever(s) Cardiovascular: Cardiovascular: Denies chest pain, Reports leg edema, Denies dyspnea and Denies dyspnea on exertion Respiratory: Respiratory: Denies cough, Denies dyspnea and Denies dyspnea on exertion Endocrine: Endocrine: Denies fatigue PMF Past Medical History Attestation statement: The following information was validated with the patient. Medical History (Updated 03/01/25 @ 00:00 by Background Daemon) Adjustment disorder with mixed disturbance of emotions and conduct in remission CKD stage G3b/A1, GFR 30-44 and albumin creatinine ratio <30 mg/g Marijuana use Tobacco dependence HLD (hyperlipidemia) Constipation Asthma ERIN (iron deficiency anemia) GERD (gastroesophageal reflux disease) HTN (hypertension) Anxiety Intellectual disability Acute adjustment disorder with mixed disturbance of emotions and conduct PTSD (post-traumatic stress disorder) MDD (major depressive disorder), recurrent severe, without psychosis Surgical History (Updated 02/18/25 @ 20:59 by FRANCISCO Henrández) Hx of cholecystectomy Previous back surgery Social History Social History Household Members: Family Household Members Other:: roomate Housing: House Do you presently have visiting nurse or other home services: Yes Comment: 5 minute checks Patient Tobacco Use Status: Former Tobacco user Tobacco use type: Cigarette Smoked in Last 30 Days: No e-Cigarette/Vaping Use: Never Used Second Hand Smoke Exposure: No Use of substances other than those prescribed or required for medical reasons: No Substance Use Type: Marijuana Advance Directives: Yes Advance Directives on File: Yes Advance Directives Date on File: 02/09/25 Do you have a plan to hurt others: No Plan service: No Sexual orientation: Straight/Heterosexual Physical Exam ED Vital Signs: Vital Signs - 24 hr 02/28/25 18:13 02/28/25 19:31 02/28/25 21:34 Temperature 98.2 F 98 F Pulse Rate 83 76 77 Respiratory Rate 18 15 15 Blood Pressure 152/62 H 129/48 L 130/67 Pulse Oximetry 95 96 95 Oxygen Delivery Method Room Air Room Air Room Air 02/28/25 22:16 Temperature 98 F Pulse Rate 77 Respiratory Rate 15 Blood Pressure 130/67 Pulse Oximetry 95 Oxygen Delivery Method Room Air BMI result Body Mass Index 27.9 Const Other: Alert, well-appearing Orientation/consciousness: oriented to person and oriented to place Resp Effort & Inspection: normal respiratory effort Cardio Other: Normal peripheral perfusion, trace pedal edema Skin Other: Warm dry no rash Neuro General: oriented to person, oriented to place, gait normal, no focal motor deficits and CN's II-XI intact bilaterally Extrem Other: The peripheral edema is trace and subtle, both calves are equal in size no overlying erythema or tenderness to touch to suggest cellulitis Psych Other: Cooperative Course Course Course Narrative: RME, this is a rapid medical exam performed by Rafal Gallagher please refer to primary provider for complete H&P- 54 year old female presents for evaluation of leg swelling. She was discharged from the psychiatric floor 02/23/25. She reports increased leg swelling since then. Plan for labs, chest x-ray to rule out CHF Medical Decision Making Medical Decision Making [facility] Narrative: 54-year-old female with a history of intellectual disability, adjustment disorder with mixed disturbance of emotion and conduct, PTSD, depression, chronic kidney disease, hyperlipidemia, hypertension, who presents with bilateral lower extremity swelling x1 week. Patient is here with her mother, they report that the patient has developed peripheral edema, the patient has been complaining of leg pain. Associated unintentional weight gain over the past month. Denies chest pain, shortness of breath or orthopnea. Denies redness of lower extremities or fever. The patient's psychiatric medications have recently been adjusted, the mother called the pharmacy to see if peripheral edema was part of the any of the side-effect profiles they were not. No new medication changes in regard to her antihypertensive medications. Problem: Psychiatric illness, intellectual disability, chronic kidney disease, hypertension History: Per patient's mother I have considered the following differential diagnoses: New heart failure, new hepatic impairment, worsening renal function, medication adverse reaction, cellulitis, DVT Plan: Screening labs were obtained from triage, liver and BNP included with a chest x-ray. No evidence of heart failure, patient's renal function is at baseline, no new hepatic impairment. In regard to the weight gain, many of the patient's psych triage lactic medications could cause unintentional weight gain. The patient is on amlodipine which is known to cause peripheral edema, this is the likely source. I have suggested that they follow up with primary care to discuss different options in regard to her hypertension medications. No evidence of cellulitis on exam, again, the edema is trace and subtle, there was no unilateral calf pain or swelling to suggest DVT, Doppler studies are not indicated at this time. I have independently reviewed the following tests: Labs: No leukocytosis, not anemic, no electrolyte abnormality, renal function at baseline, no hepatic impairment, BNP not elevated Chest x-ray:Findings: Left perihilar linear atelectasis or scar. No other acute infiltrate identified. No pneumothorax. Heart size normal. No acute bony abnormalities. Impression: Left perihilar atelectasis versus scar Lab Data 02/28/25 18:30 02/28/25 18:30 Labs: Lab Results 02/28/25 02/28/25 Range/Units 18:30 18:38 WBC 5.7 (4.8-10.8) X10*3/uL RBC 3.71 L (4.20-5.50) X10*6/uL Hgb 12.7 (12.0-16.0) g/dl Hct 36.2 L (37.0-47.0) % MCV 97.6 (80.0-98.0) fL MCH 34.2 H (27.0-33.0) pg MCHC 35.1 H (31.0-35.0) g/dl RDW 12.2 (11.0-16.0) % Plt Count 125 L (160-400) X10*3/uL MPV 9.7 (9.4-12.3) fL Immature Gran % (Auto) 0.3 (0.0-0.4) % Neut % (Auto) 52.8 (45-73) % Lymph % (Auto) 33.6 (20-40) % [place] % (Auto) 10.0 (2-11) % Eos % (Auto) 2.8 (0-4) % Baso % (Auto) 0.5 (0-2) % Lymph # (Auto) 1.9 (1.2-4.9) X10*3/uL [place] # (Auto) 0.6 (0.1-1.2) X10*3/uL Eos # (Auto) 0.2 (0.0-0.4) X10*3/uL Baso # (Auto) 0.0 (0.0-0.2) X10*3/uL Abs Immat Gran (auto) 0.02 (0.00-0.03) X10*3/uL Absolute Neuts (auto) 3.0 (2.0-8.3) x10*3/uL Absolute Nucleated RBC 0.000 (0.0-0.012) X10*3/uL Nucleated RBC % (auto) 0.0 (0.0-0.2) /100WBC Sodium 141 (135-145) mmol/L Potassium 3.8 (3.3-5.1) mmol/L Chloride 107 (96-108) mmol/L Carbon Dioxide 26 (22-29) mmol/L Anion Gap 12 (12-20) BUN 26 H (9-16) mg/dL Creatinine 0.94 (0.5-1.4) mg/dL Estim Creat Clear Calc 55.7 Estimated GFR > 60 Random Glucose 108 (60-115) mg/dL Calcium 9.2 D (8.4-10.2) mg/dL Total Bilirubin 0.3 (0.0-1.0) mg/dL AST 27 (5-31) U/L ALT 33 H (0-31) U/L Alkaline Phosphatase 65 (39-117) U/L B-Natriuretic Peptide 102 H (<100) pg/mL Total Protein 6.8 (6.5-8.0) g/dL Albumin 4.4 (3.5-5.0) g/dL Lipase 29 (8-78) U/L Urine Color Yellow Urine Appearance Clear Urine pH 6.5 (5.0-9.0) Ur Specific Diamond 1.010 (1.005-1.025) Urine Protein Negative (Neg-Trace) mg/dL Urine Glucose (UA) Negative (Negative) mg/dL Urine Ketones Negative (Negative) mg/dL Urine Blood Negative (Negative) Urine Nitrite Negative (Negative) Ur Leukocyte Esterase Moderate (2+) H (Negative) Urine RBC 0-2 (0-2) /HPF Urine WBC 6-10 (0-5) /HPF Urine WBC Clumps Present Ur Squamous Epith Cells 3-5 (0-2) /HPF Urine Bacteria 1+ (None Seen) Hyaline Casts 0-2 (0-2) /LPF Discharge Plan Discharge Clinical Impression: Edema, peripheral Patient Disposition: Home, Self-Care Instructions: Leg Edema (ED) Additional Instructions: All of your screening labs were normal including your liver function, the kidney function is at baseline. The chest x-ray is clear. The peripheral edema that you are experiencing is likely secondary to the amlodipine you use for blood pressure. This is a common side effect. I would use compression stockings while ambulating. Remove them at night and elevate your legs above your heart when you rest. I would have discussion with your primary care provider about modifying your blood pressure medication regimen. Call tomorrow to make an appointment. Prescriptions: No Action clonidine HCl 0.1 mg Tablet 0.1 mg PO TID 30 Days Qty: 90 0RF Protocol: Hold for SBP< HOLD for SBP < : 90 dicyclomine 10 mg Capsule 10 mg PO QIDACHS 30 Days Qty: 120 0RF famotidine 20 mg Tablet 20 mg PO BID 30 Days Qty: 60 0RF lactase [Dairy-Aid] 3,000 unit Tablet 3,000 unit PO TIDWM 30 Days Qty: 90 0RF docusate sodium 100 mg Capsule 100 mg PO BEDTIME 30 Days Qty: 30 0RF nystatin [Nyamyc] 100,000 unit/gram Powder 1 appl topical BID 15 Days Qty: 15 0RF Protocol: Apply to: Apply to: affected areas of the breasts/chest amlodipine 5 mg tablet 7.5 mg PO DAILY 30 Days Qty: 45 0RF omeprazole 40 mg capsule,delayed release(DR/EC) 40 mg PO BID 30 Days Qty: 60 0RF ferrous sulfate [FeroSul] 325 mg (65 mg iron) tablet 325 mg PO DAILY 30 Days Qty: 30 0RF Rx Instructions: with breakfast albuterol sulfate 90 mcg/actuation HFA aerosol inhaler 2 puff inhalation Q4H PRN (Reason: Wheezing) 30 Days Qty: 1 0RF buspirone 15 mg tablet 15 mg PO TID 30 Days Qty: 90 0RF sennosides [senna] 8.6 mg Tablet 8.6 mg PO BID atorvastatin 10 mg Tablet 10 mg PO BEDTIME folic acid 1 mg Tablet 1 mg PO DAILY metoprolol succinate 25 mg Tablet Extended Release 24 Hr 25 mg PO 1XD hydroxyzine HCl 25 mg Tablet 25 mg PO Q6H PRN (Reason: mild anxiety) 30 Days Qty: 90 0RF Patient Own Medication 1 ea PO QID PRNQty: 0 0RF polyethylene glycol 3350 [Miralax] 17 gram Powder In Packet 17 g PO DAILY 30 Days Qty: 30 0RF sertraline 100 mg tablet 150 mg PO DAILY 30 Days Qty: 45 0RF trazodone 100 mg tablet 150 mg PO BEDTIME 30 Days Qty: 45 0RF risperidone 0.5 mg Tablet 0.5 mg PO DAILY 30 Days Qty: 30 0RF Interventions: ED Discharge Assessment Last Done: 02/28/25 22:16 Discharge Date/Time: 02/28/25 22:17 Print Language: Faroese
--- NOTE | 2025-02-28 18:15 | ECG_ITS ---
Test Reason : PAIN Blood Pressure : */* mmHG Vent. Rate : 87 BPM Atrial Rate : 87 BPM P-R Int : 188 ms QRS Dur : 84 ms QT Int : 398 ms P-R-T Axes : 33 85 21 degrees QTcB Int : 478 ms Normal sinus rhythm Possible Left atrial enlargement Borderline ECG When compared with ECG of 19-Feb-2025 16:36, Criteria for Septal infarct are no longer Present Referred By: Sebastian Gallagher Electronically Signed By: Jameel Gutierrez
[2025-02-28 18:35] LABS: MANUAL DIFF FLAG NO
[2025-02-28 18:36] LABS: Basophils Percent Auto 0.5 % (0-2); Eosinophils Absolute Auto 0.2 X10*3/uL (0.0-0.4); Eosinophils Percent Auto 2.8 % (0-4); Hematocrit 36.2 % (37.0-47.0); Hemoglobin 12.7 g/dl (12.0-16.0); Imm Gran Abs Auto 0.02 X10*3/uL (0.00-0.03); Imm Gran Pct Auto 0.3 % (0.0-0.4); Lymphocytes Absolute Auto 1.9 X10*3/uL (1.2-4.9); Lymphocytes Percent Auto 33.6 % (20-40); Mean Corpuscular HGB Conc 35.1 g/dl (31.0-35.0); Mean Corpuscular Hemoglobin 34.2 pg (27.0-33.0); Mean Corpuscular Volume 97.6 fL (80.0-98.0); Mean Platelet Volume 9.7 fL (9.4-12.3); Monocytes Absolute Auto 0.6 X10*3/uL (0.1-1.2); Neutrophils Percent Auto 52.8 % (45-73); Platelet Count 125 X10*3/uL (160-400); Red Blood Count 3.71 X10*6/uL (4.20-5.50); Red Cell Distribution Width 12.2 % (11.0-16.0); White Blood Count 5.7 X10*3/uL (4.8-10.8)
[2025-02-28 18:43] LABS: Appearance Urine Clear; Color Urine Yellow; Glucose Urine UA Negative (Negative); Leukocyte Esterase Urine Moderate (2+) (Negative); Nitrite Urine Negative (Negative); PH 6.5 (5.0-9.0); UMIC TRIGGER UACC YES; Urine Blood Negative (Negative); Urine Ketones Negative (Negative); Urine Protein Negative (Neg-Trace)
[2025-02-28 18:55] LABS: Alanine Aminotransferase 33 U/L (0-31); Albumin Level 4.4 g/dL (3.5-5.0); Alkaline Phosphatase 65 U/L (39-117); Anion Gap 12 (12-20); Aspartate Amino Transferase 27 U/L (5-31); Bilirubin Total 0.3 mg/dL (0.0-1.0); Blood Urea Nitrogen 26 mg/dL (9-16); Calcium 9.2 mg/dL (8.4-10.2); Carbon Dioxide 26 mmol/L (22-29); Chloride 107 mmol/L (96-108); Creatinine Clr Calc Pharmacy 55.7; Estimated Glomerular Filt Rate > 60; Glucose Random 108 mg/dL (60-115); Lipase 29 U/L (8-78); Potassium 3.8 mmol/L (3.3-5.1); Sodium 141 mmol/L (135-145); Total Protein 6.8 g/dL (6.5-8.0)
[2025-02-28 18:58] LABS: UACC Culture Trigger YES
[2025-02-28 18:59] LABS: Bacteria Urine 1+ (None Seen); Hyaline Casts Urine 0-2 /LPF (0-2); RBC Urine 0-2 /HPF (0-2); WBC Clumps Urine Present
[2025-02-28 19:01] LABS: B Type Natriuretic Peptide 102 pg/mL (<100)
[2025-02-28 19:31] VITALS: BP 129/48; PULSE 76; RESP 15; TEMP 36.8; O2SAT 96
--- NOTE | 2025-02-28 19:35 | PC.NURSE ---
Pt resting comfortably in bed with callbell in place and pt educated on use. Pt uses walker for ambulation at baseline and has her own walker with her. Family at bedside.
[2025-02-28 21:34] VITALS: BP 130/67; PULSE 77; RESP 15; TEMP 36.6; O2SAT 95
[2025-02-28 22:16] VITALS: BP 130/67; PULSE 77; RESP 15; TEMP 36.6; O2SAT 95
== END 2025-02-28 22:17 | disposition home or self-care (01) ==
PROVIDERS: Physician Assistant; Emergency Provider Emergency Medicine; PCP Internal Medicine
DX: R60.0 Localized edema (principal); M79.605 Pain in left leg; M79.604 Pain in right leg; I12.9 Hypertensive chronic kidney disease with stage 1 through stage 4 chronic kidney disease, or unspecified chronic kidney disease; N18.32 Chronic kidney disease, stage 3b; E78.5 Hyperlipidemia, unspecified; J45.909 Unspecified asthma, uncomplicated; D50.9 Iron deficiency anemia, unspecified; Z93.3 Colostomy status; Z87.891 Personal history of nicotine dependence; Z79.899 Other long term (current) drug therapy
CPT/HCPCS: 36415; 71046; 80053; 81001; 83690; 83880; 85025; 87086; 93005; 99283; 99284

== ENCOUNTER → 2025-02-28 18:15 | Outpatient (BNV) | payer MEDICARE, MEDICAID, SELFPAY | PROVIDERS: Emergency Provider Emergency Medicine; PCP Internal Medicine; Visit Provider Internal Medicine Cardiovascular Disease | DX: R07.9 Chest pain, unspecified (principal) | CPT/HCPCS: 93010 ==

== ENCOUNTER → 2025-02-28 18:15 | Outpatient (BNV) | payer MEDICARE, MEDICAID, SELFPAY | PROVIDERS: PCP Internal Medicine; Visit Provider Radiology Diagnostic Radiology | DX: R06.02 Shortness of breath (principal) | CPT/HCPCS: 71046 ==

== ENCOUNTER 2025-03-11 10:48 | Emergency (ER) | payer MEDICARE, MEDICAID, SELFPAY ==
[2025-03-11 11:01] VITALS: BP 141/48; PULSE 121; RESP 18; TEMP 36.4; O2SAT 98; BMI 27.8
--- NOTE | 2025-03-11 11:02 | ED_ITS ---
HPI - Psych General Chief Complaint: Psychiatric Symptoms Stated Complaint: Psych Harming Self Again Time Seen by Provider: 03/11/25 11:25 Source: patient and old records reviewed Mode of arrival: ambulatory Limitations: no limitations History of Present Illness ED Provider: ABDOUL SANFORD Narrative: 54 yo female with PMH of anxiety, PTSD, CKD, asthma, anemia, HLD, intellectual disability, colitis with colostomy, uses a walker here with c/o leaving inpatient and having access to her medications but then states she always fights with her 80 yo father she notes her mom is aware. She states she wants to any means possible. She was found slapping herself in the face today by her VN. She denies any medical complaints MD complaint: suicidal ideation and feels depressed Onset (ago): week(s) Duration: intermittent History of same: Yes Relieving factors: none Exacerbating factors: other Context: significant life stressor Associated psychiatric symptoms: depression and suicidal ideation Associated symptoms: denies other symptoms If self harm: admits thoughts of self harm and has plan Related Data Home Medications ?Medication ?Instructions ?Recorded ?Confirmed atorvastatin 10 mg tablet 10 mg PO BEDTIME 02/18/25 03/11/25 folic acid 1 mg tablet 1 mg PO DAILY 02/18/25 03/11/25 metoprolol succinate 25 mg 25 mg PO 1XD 02/18/25 03/11/25 tablet,extended release 24 hr sennosides 8.6 mg tablet (senna) 8.6 mg PO BID 02/18/25 03/11/25 hydrochlorothiazide 25 mg tablet 25 mg PO DAILY 03/11/25 03/11/25 hydroxyzine HCl 25 mg tablet 50 mg PO TID PRN mild anxiety 03/11/25 03/11/25 risperidone 0.5 mg tablet 1 mg PO BEDTIME 03/11/25 03/11/25 trazodone 100 mg tablet 125 mg PO BEDTIME 03/11/25 03/11/25 Previous Rx's ?Medication ?Instructions ?Recorded albuterol sulfate 90 mcg/actuation 2 puff inhalation Q4H PRN Wheezing 02/07/25 aerosol inhaler 30 days #1 inhaler clonidine HCl 0.1 mg tablet 0.1 mg PO TID 30 days #90 tabs 02/07/25 dicyclomine 10 mg capsule 10 mg PO QIDACHS 30 days #120 caps 02/07/25 famotidine 20 mg tablet 20 mg PO BID 30 days #60 tabs 02/07/25 ferrous sulfate 325 mg (65 mg 325 mg PO DAILY 30 days #30 tabs 02/07/25 iron) tablet (FeroSul) omeprazole 40 mg capsule,delayed 40 mg PO BID 30 days #60 caps 02/07/25 release sertraline 100 mg tablet 150 mg (1.5 x 100 mg) PO DAILY 30 02/23/25 days #45 tabs psyllium husk 3.4 gram/5.4 gram 1 tbsp PO BID #660 grams 03/12/25 oral powder (Metamucil) Allergies Allergy/AdvReac Type Severity Reaction Status Date / Time Opioids - Morphine Analogues Allergy Severe NAUSEA, Verified 03/11/25 11:05 [OPIOIDS - MORPHINE HIVES, ANALOGUES] STOPS BREATHING Review of Systems 2 Review of Systems: Constitutional : No Fever, No Chills ENT/Mouth : No Ear Pain, No Nasal Congestion, No sore throat Eyes: No Eye Pain, No Swelling, No Redness Cardiovascular : No Chest Pain, No SOB Respiratory : No Cough, No Sputum, No Dyspnea Gastrointestinal : No Nausea, No Vomiting, No Diarrhea, No Hematochezia, No Melena Genitourinary : No Dysuria, No Urinary Frequency, No Hematuria Musculoskeletal : No Myalgias Skin : No Skin Lesions, No rash Neuro : No Weakness, No Numbness, No Paresthesias, No Dizziness, No Headache Psych : positive Anxiety, positive Depression, positive SI no HI All other systems reviewed and are negative [facility] Past Medical History Attestation statement: The following information was validated with the patient. Source: old records reviewed Medical History Adjustment disorder with mixed disturbance of emotions and conduct in remission CKD stage G3b/A1, GFR 30-44 and albumin creatinine ratio <30 mg/g Marijuana use Tobacco dependence HLD (hyperlipidemia) Constipation Asthma ERIN (iron deficiency anemia) GERD (gastroesophageal reflux disease) HTN (hypertension) Anxiety Intellectual disability Acute adjustment disorder with mixed disturbance of emotions and conduct PTSD (post-traumatic stress disorder) MDD (major depressive disorder), recurrent severe, without psychosis Surgical History Hx of cholecystectomy Previous back surgery Social History Social History Household Members: Family Household Members Other:: roomate Housing: House Do you presently have visiting nurse or other home services: Yes Comment: 5 minute checks Patient Tobacco Use Status: Former Tobacco user Tobacco use type: Cigarette Smoked in Last 30 Days: No e-Cigarette/Vaping Use: Never Used Second Hand Smoke Exposure: No Use of substances other than those prescribed or required for medical reasons: No Substance Use Type: Marijuana Advance Directives: Yes Advance Directives on File: Yes Advance Directives Date on File: 02/09/25 Do you have a plan to hurt others: No Plan service: No Sexual orientation: Straight/Heterosexual Physical Exam 2 Vital Signs: Vital Signs: Last Vital Signs Temp 97.8 F 03/12/25 08:06 Pulse 72 03/12/25 08:06 Resp 16 03/12/25 08:06 BP 131/50 L 03/12/25 08:16 Pulse Ox 100 03/12/25 08:06 O2 Del Method Room Air 03/12/25 08:06 BMI result Body Mass Index 27.8 Appearance: Alert. Oriented X3. No acute distress. walking around with walker Eyes: Pupils equal, round and reactive to light. ENT: Pharynx normal. Neck: Normal inspection. Neck supple. CVS: Normal heart rate and rhythm. Pulses normal. Respiratory: No respiratory distress. Breath sounds normal. Abdomen: Soft and nontender. Skin: Skin warm and dry. Normal skin color. Normal skin turgor. Extremities: No lower extremity edema. No calf ttp Neuro: Oriented X 3. No motor deficit. No sensory deficit. CN2-12 intact Course Course Course Narrative: 03/11/25 1102 PATRICIA Bojorquez This is a Rapid Medical Examination (RME) performed by Luann Mars PA-C in triage. Full HPI, ROS, assessment and treatment plan per primary provider in the Main ED. Hx: 54 yo F hx MDD, PTSD, HTN, GERD, iron deficiency anemia, asthma, HLD, stage 3 CKD here w/ family for eval of SI. patient was witnessed slapping herself in the face today stating that she wanted to kill herself. denies HI. denies illicit substance use or etoh consumption. reoprts compliance w/ meds. recently admitted to , d/c about 2 wks ago. Plan: med clearance, care team eval Reevaluation(s) Reevaluation #1: per CARE team DC in AM 03/12/25 around 8am Medications Administered Generic Name Dose Route Start Last Admin Trade Name Jody PRN Reason Stop Dose Admin Acetaminophen 650 mg 03/11/25 14:32 03/11/25 19:31 Acetaminophen 325 Mg Tablet PO 650 mg Q6H PRN Administration Pain, Mild 1-3,fever,headache Atorvastatin Calcium 10 mg 03/11/25 21:00 03/11/25 20:32 Atorvastatin Calcium 10 Mg Tablet PO 10 mg BEDTIME JOSE MARIA Administration Clonidine HCl 0.1 mg 03/11/25 15:00 03/12/25 08:15 Clonidine Hcl 0.1 Mg Tablet PO 0.1 mg TID JOSE MARIA Administration Protocol Dicyclomine HCl 10 mg 03/11/25 12:35 03/12/25 07:44 Dicyclomine Hcl 10 Mg Capsule PO 10 mg QIDACHS JOSE MARIA Administration Famotidine 20 mg 03/11/25 21:00 03/12/25 08:16 Famotidine 20 Mg Tablet PO 20 mg BID JOSE MARIA Administration Ferrous Sulfate 324 mg 03/12/25 09:00 03/12/25 08:16 Ferrous Sulfate 324 Mg Tablet. PO 324 mg DAILY JOSE MARIA Administration Folic Acid 1 mg 03/12/25 09:00 03/12/25 08:15 Folic Acid 1 Mg Tablet PO 1 mg DAILY JOSE MARIA Administration Hydrochlorothiazide 25 mg 03/12/25 09:00 03/12/25 08:16 Hydrochlorothiazide 25 Mg Tablet PO 25 mg DAILY JOSE MARIA Administration Protocol Omeprazole 40 mg 03/11/25 16:30 03/12/25 07:43 Omeprazole 40 Mg Capsule. PO 40 mg BID@0630,1630 JOSE MARIA Administration Risperidone 1 mg 03/11/25 21:00 03/11/25 20:32 Risperidone 1 Mg Tablet PO 1 mg BEDTIME JOSE MARIA Administration Senna 8.6 mg 03/11/25 21:00 03/12/25 08:16 Sennosides 8.6 Mg Tablet PO 8.6 mg BID JOSE MARIA Administration Sertraline HCl 150 mg 03/12/25 09:00 03/12/25 08:15 Sertraline Hcl 50 Mg Tablet PO 150 mg DAILY JOSE MARIA Administration Trazodone HCl 125 mg 03/11/25 21:00 03/11/25 20:32 Trazodone Hcl 25 Mg Halftab PO 125 mg BEDTIME JOSE MARIA Administration Discontinued Medications Generic Name Dose Route Start Last Admin Trade Name Jody PRN Reason Stop Dose Admin Acetaminophen 650 mg 03/11/25 13:46 03/11/25 13:49 Acetaminophen 325 Mg Tablet PO 03/11/25 13:47 650 mg ONCE ONE Administration Medical Decision Making Medical Decision Making [facility] Narrative: 54 yo female with PMH of anxiety, PTSD, CKD, asthma, anemia, HLD, intellectual disability, colitis with colostomy, uses a walker here with c/o depression and SI due to issues with her father at this time will need basic labs, UA and CARE team consult. Time: 08:59 Date: 03/12/25 Provider: Ibrahima Mcelroy, DO Patient in physician observation for psychiatric evaluation.? No acute events reported overnight. No current complaints. VS stable.?pt cleared from care team, she has been dealing with new medical issues such as having to manage colostomy, otherwise there are no indications that she requires inpatient level of care. I discussed this with behavioral health provider and agree with this assessment. Differential Diagnosis Differential Diagnoses: The differential diagnosis associated with the presentation includes depression, PTSD, SI Admission/Observation Consideration of admission/observation: Escalation of care including admission/observation considered physician observation started at 1148am Consult Healthcare Provider Management of the patient was discussed with: Behavioral Health Provider Lab Data [facility] Lab Attestation statement: I reviewed the patient's lab results. 03/11/25 11:58 03/11/25 11:58 Labs: Lab Results 03/11/25 03/11/25 Range/Units 11:40 11:58 WBC 9.0 (4.8-10.8) X10*3/uL RBC 4.56 D (4.20-5.50) X10*6/uL Hgb 15.5 D (12.0-16.0) g/dl Hct 43.5 D (37.0-47.0) % MCV 95.4 (80.0-98.0) fL MCH 34.0 H (27.0-33.0) pg MCHC 35.6 H (31.0-35.0) g/dl RDW 12.3 (11.0-16.0) % Plt Count 161 D (160-400) X10*3/uL MPV 10.2 (9.4-12.3) fL Immature Gran % (Auto) 0.3 (0.0-0.4) % Neut % (Auto) 71.0 (45-73) % Lymph % (Auto) 17.1 L (20-40) % [place] % (Auto) 10.1 (2-11) % Eos % (Auto) 1.2 (0-4) % Baso % (Auto) 0.3 (0-2) % Lymph # (Auto) 1.5 (1.2-4.9) X10*3/uL [place] # (Auto) 0.9 (0.1-1.2) X10*3/uL Eos # (Auto) 0.1 (0.0-0.4) X10*3/uL Baso # (Auto) 0.0 (0.0-0.2) X10*3/uL Abs Immat Gran (auto) 0.03 (0.00-0.03) X10*3/uL Absolute Neuts (auto) 6.4 (2.0-8.3) x10*3/uL Absolute Nucleated RBC 0.000 (0.0-0.012) X10*3/uL Nucleated RBC % (auto) 0.0 (0.0-0.2) /100WBC Sodium 142 (135-145) mmol/L Potassium 3.5 (3.3-5.1) mmol/L Chloride 103 (96-108) mmol/L Carbon Dioxide 30 H (22-29) mmol/L Anion Gap 13 (12-20) BUN 42 H (9-16) mg/dL Creatinine 0.97 (0.5-1.4) mg/dL Estim Creat Clear Calc 53.9 Estimated GFR > 60 Random Glucose 120 H (60-115) mg/dL Calcium 10.7 H D (8.4-10.2) mg/dL Magnesium 2.0 (1.6-2.6) mg/dL Total Bilirubin 0.4 (0.0-1.0) mg/dL AST 22 (5-31) U/L ALT 23 (0-31) U/L Alkaline Phosphatase 77 (39-117) U/L Total Protein 7.9 (6.5-8.0) g/dL Albumin 4.9 (3.5-5.0) g/dL Urine Color Yellow Urine Appearance Clear Urine pH 6.0 (5.0-9.0) Ur Specific [place] 1.015 (1.005-1.025) Urine Protein 100 (2+) H (Neg-Trace) mg/dL Urine Glucose (UA) Negative (Negative) mg/dL Urine Ketones Negative (Negative) mg/dL Urine Blood Negative (Negative) Urine Nitrite Negative (Negative) Ur Leukocyte Esterase Negative (Negative) Urine RBC 0-2 (0-2) /HPF Urine WBC 0-5 (0-5) /HPF Ur Squamous Epith Cells 0-2 (0-2) /HPF Urine Bacteria None Seen (None Seen) Hyaline Casts 0-2 (0-2) /LPF Salicylates < 5.0 L (15-30) mg/dL Urine Opiates Screen Not Detected (Not Detect) Ur Buprenorphine Scrn Not Detected (Not Detect) ng/mL Ur Oxycodone Screen Not Detected (Not Detect) ng/mL Urine Methadone Screen Not Detected (Not Detect) ng/mL Urine Fentanyl Screen Not Detected (Not Detect) Acetaminophen < 3 (<30) mcg/mL Ur Barbiturates Screen Not Detected (Not Detect) Ur Phencyclidine Scrn Not Detected (Not Detect) Ur Amphetamines Screen Not Detected (Not Detect) U Benzodiazepines Scrn Not Detected (Not Detect) Urine Cocaine Screen Not Detected (Not Detect) U Marijuana (THC) Screen Not Detected (Not Detect) Ethyl Alcohol < 10 mg/dL Independent Historian Clinical information obtained from an independent historian. History obtained from or confirmed by: EMS External Record Review External record reviewed: Inpatient record and Outpatient record Discharge Plan Discharge Clinical Impression: Suicidal ideation, Intellectual disability Patient Disposition: Home, Self-Care Instructions: Suicide Prevention (ED) Additional Instructions: You were seen in our Emergency Department today for treatment of a behavioral health issue. It is important after your visit that you follow up with either your behavioral health provider or a primary care doctor within 7 days.? I am starting you on Metamucil this we will back if his stools and make transition of stool much easier through the GI tract. If you have trouble finding a therapist you can reach out to [address] [phone] The National Suicide and Crisis Lifeline can be reached 7 days a week 24 hours a day.? Call 988 to speak with someone.? Return for any worsening symptoms or concerns such as thoughts of self harm or harm to others. Please call 911 if you feel your mental health is worsening.? Prescriptions: New Metamucil 3.4 gram/5.4 gram powder 1 tbsp PO BID Qty: 660 0RF Rx Instructions: mix into at least 8 oz of water or juice before administering No Action clonidine HCl 0.1 mg Tablet 0.1 mg PO TID 30 Days Qty: 90 0RF Protocol: Hold for SBP< HOLD for SBP < : 90 dicyclomine 10 mg Capsule 10 mg PO QIDACHS 30 Days Qty: 120 0RF famotidine 20 mg Tablet 20 mg PO BID 30 Days Qty: 60 0RF omeprazole 40 mg capsule,delayed release(DR/EC) 40 mg PO BID 30 Days Qty: 60 0RF ferrous sulfate [FeroSul] 325 mg (65 mg iron) tablet 325 mg PO DAILY 30 Days Qty: 30 0RF Rx Instructions: with breakfast albuterol sulfate 90 mcg/actuation HFA aerosol inhaler 2 puff inhalation Q4H PRN (Reason: Wheezing) 30 Days Qty: 1 0RF sennosides [senna] 8.6 mg Tablet 8.6 mg PO BID atorvastatin 10 mg Tablet 10 mg PO BEDTIME folic acid 1 mg Tablet 1 mg PO DAILY metoprolol succinate 25 mg Tablet Extended Release 24 Hr 25 mg PO 1XD sertraline 100 mg tablet 150 mg PO DAILY 30 Days Qty: 45 0RF hydrochlorothiazide 25 mg tablet 25 mg PO DAILY trazodone 100 mg tablet 125 mg PO BEDTIME hydroxyzine HCl 25 mg tablet 50 mg PO TID PRN (Reason: mild anxiety) risperidone 0.5 mg tablet 1 mg PO BEDTIME Interventions: Irving-Suicide Risk Severity Scale Last Done: 03/11/25 11:05 Print Language: Hong Konger
[2025-03-11 11:48] LABS: Appearance Urine Clear; Color Urine Yellow; Glucose Urine UA Negative (Negative); Leukocyte Esterase Urine Negative (Negative); Nitrite Urine Negative (Negative); Specific Gravity - Urine 1.015 (1.005-1.025); UMIC TRIGGER UACC YES; Urine Blood Negative (Negative); Urine Ketones Negative (Negative); Urine Protein 100 (2+) mg/dL (Neg-Trace)
[2025-03-11 11:50] LABS: Bacteria Urine None Seen (None Seen); Hyaline Casts Urine 0-2 /LPF (0-2); RBC Urine 0-2 /HPF (0-2); Squamous Epithelial Cell Urine 0-2 /HPF (0-2); WBC Urine 0-5 /HPF (0-5)
[2025-03-11 12:00] VITALS: BP 141/48; PULSE 121; RESP 18; TEMP 36.4; O2SAT 98
[2025-03-11 12:03] LABS: MANUAL DIFF FLAG NO
[2025-03-11 12:05] LABS: Basophils Percent Auto 0.3 % (0-2); Eosinophils Absolute Auto 0.1 X10*3/uL (0.0-0.4); Eosinophils Percent Auto 1.2 % (0-4); Hematocrit 43.5 % (37.0-47.0); Hemoglobin 15.5 g/dl (12.0-16.0); Imm Gran Abs Auto 0.03 X10*3/uL (0.00-0.03); Imm Gran Pct Auto 0.3 % (0.0-0.4); Lymphocytes Absolute Auto 1.5 X10*3/uL (1.2-4.9); Lymphocytes Percent Auto 17.1 % (20-40); Mean Corpuscular HGB Conc 35.6 g/dl (31.0-35.0); Mean Corpuscular Volume 95.4 fL (80.0-98.0); Mean Platelet Volume 10.2 fL (9.4-12.3); Monocytes Absolute Auto 0.9 X10*3/uL (0.1-1.2); Monocytes Percent Auto 10.1 % (2-11); Neutrophils Absolute Auto 6.4 x10*3/uL (2.0-8.3); Platelet Count 161 X10*3/uL (160-400); Red Blood Count 4.56 X10*6/uL (4.20-5.50); Red Cell Distribution Width 12.3 % (11.0-16.0)
[2025-03-11 12:06] LABS: Amphetamine Screen Urine Not Detected (Not Detect); Barbiturates, Urine Not Detected (Not Detect); Benzodiazepines Screen Urine Not Detected (Not Detect); Buprenorphine Scr Not Detected (Not Detect); Cannabinoid Screen Urine Not Detected (Not Detect); Cocaine Screen Urine Not Detected (Not Detect); Fentanyl, urine Not Detected (Not Detect); Methadone Screen, Urine Not Detected (Not Detect); Opiate Screen Urine Not Detected (Not Detect); Oxycodone Screen Urine Not Detected (Not Detect); Phencyclidine Screen Urine Not Detected (Not Detect)
--- NOTE | 2025-03-11 12:19 | PC.NURSE ---
PT ARRIVED TO ED AT APPROXIMATELY 1130. PT WAS UNCOOPERATIVE WITH LORRY WEIGHER PROCESS IN MAIN ED. LORRY WEIGHER COMPLETED IN POD BY RN AND MAMIE PADILLA. PT WAS COOPERATIVE WITH LORRY WEIGHER. PT REPORTS THAT HER FATHER AND HER WENT AT IT REAL BAD . PT IS ANGRY WHEN SPEAKING OF HER FATHER. MOTHER VISITED. MOTHER REPORTS THAT THIS IS NOT TRUE. PER MOTHER, PT HAS BEEN INTERMITTENTLY ANGRY AND EXPLOSIVE. PT HAS HAD MULTIPLE INPATIENT STAYS RECENTLY ON M5 AND M3. PT HAS AN OSTOMY BAG WHICH MOTHER REPORTS CHANGING YESTERDAY 03/10/25. OSTOMY SITE LOOKS INTACT WITH NO SIGNS OF COMPLICATIONS. PTS MOTHER REPORTS GIVING HER 50MG OF HYDROXYZINE PRIOR TO COMING TO THE ED. PT HAS A HISTORY OF SELF HARMING BEHAVIORS, MAINLY PUNCHING SELF IN FACE. NO APPARENT DISTRESS AT THIS TIME. PT HAD A SANDWICH AND REQUESTED HER SCHEDULED AFTERNOON MEDICATIONS. AWAITING TO BE SEEN BY CARE TEAM. PT WAS COOPERATIVE WITH BLOOD DRAW AND URINE SAMPLE. DENIES SI/AH/VH. PT DOES REPORT THOUGHTS OF HARMING FATHER, STATING NEXT TIME HE LAYS HIS HANDS ON ME IM GOING TO KILL HIM . PT AMBULATING HUSSEIN WITH WALKER AT THIS TIME.
[2025-03-11 12:22] LABS: Ethanol < 10 mg/dL
[2025-03-11 12:24] LABS: Alanine Aminotransferase 23 U/L (0-31); Albumin Level 4.9 g/dL (3.5-5.0); Alkaline Phosphatase 77 U/L (39-117); Anion Gap 13 (12-20); Aspartate Amino Transferase 22 U/L (5-31); Bilirubin Total 0.4 mg/dL (0.0-1.0); Blood Urea Nitrogen 42 mg/dL (9-16); Calcium 10.7 mg/dL (8.4-10.2); Carbon Dioxide 30 mmol/L (22-29); Chloride 103 mmol/L (96-108); Creatinine Clr Calc Pharmacy 53.9; Estimated Glomerular Filt Rate > 60; Glucose Random 120 mg/dL (60-115); Potassium 3.5 mmol/L (3.3-5.1); Sodium 142 mmol/L (135-145); Total Protein 7.9 g/dL (6.5-8.0)
[2025-03-11 12:31] LABS: Acetaminophen LAB < 3 mcg/mL (<30); Salicylate < 5.0 mg/dL (15-30)
[2025-03-11] MEDS: Dicyclomine HCl 10 MG CAPSULE PO ×3 (13:07→20:33)
--- NOTE | 2025-03-11 13:26 | PC.NURSE ---
ostomy bag emptied with assistance of rn at approximately 1324. no signs of complications. site intact. pt reports mild discomfort. offered tylenol for pain/discomfort.
[2025-03-11 13:49] VITALS: BP 132/78
[2025-03-11] MEDS: cloNIDine HCL 0.1 MG TABLET PO ×2 (13:49→20:32)
[2025-03-11] MEDS: Acetaminophen 325 MG TABLET 650 MG PO ×2 (13:49→19:31)
--- NOTE | 2025-03-11 16:23 | MHC.CARE ---
Patient seen by CARE team, denies SI. No documented/ reported hx of suicide attempts. Low frustration tolerance and self injury, most recently slapping herself in the face. She struggles with transitions, with limit setting and she has endured many changes in her life in recent months which include but aren't limited to recent surgery with colostomy bag (which she learned is permanent yesterday). Since surgery she has resided with her elderly parents, prior to this she was living with a boyfriend. It seems unlikely that an inpatient unit could benefit patient and may actually result in increased reliance on the ED/ psychiatric units and a decreased sense of self sufficiency and independence. She has many community based providers including several through [facility], a CM through [facility], she has new OP treaters at [facility]. She was seeing Dr Plascencia at [facility]. Patient's mother and father have agreed to pick patient up tomorrow. T/w will follow up in the morning to facilitate this. Parents are encouraged to strongly advocate for more nursing support and an alternate living arrangement with [facility].
[2025-03-11] MEDS: Omeprazole 40 MG CAPSULE.DR PO (16:50)
[2025-03-11 20:32] VITALS: BP 132/78
[2025-03-11] MEDS: Atorvastatin Calcium 10 MG TABLET PO (20:32)
[2025-03-11] MEDS: Famotidine 20 MG TABLET PO (20:32)
[2025-03-11] MEDS: risperiDONE 1 MG TABLET PO (20:32)
[2025-03-11] MEDS: Sennosides 8.6 MG TABLET PO (20:32)
[2025-03-11] MEDS: traZODone HCL 25 MG HALFTAB 125 MG PO (20:32)
[2025-03-12 06:17] VITALS: RESP 16
[2025-03-12] MEDS: Omeprazole 40 MG CAPSULE.DR PO (07:43)
[2025-03-12] MEDS: Dicyclomine HCl 10 MG CAPSULE PO (07:44)
[2025-03-12 08:06] VITALS: BP 131/50; PULSE 72; RESP 16; TEMP 36.6; O2SAT 100
[2025-03-12 08:15] VITALS: BP 133/51
[2025-03-12] MEDS: Sertraline HCL 50 MG TABLET 150 MG PO (08:15)
[2025-03-12] MEDS: cloNIDine HCL 0.1 MG TABLET PO (08:15)
[2025-03-12] MEDS: Folic Acid 1 MG TABLET PO (08:15)
[2025-03-12 08:16] VITALS: BP 131/50
[2025-03-12] MEDS: Sennosides 8.6 MG TABLET PO (08:16)
[2025-03-12] MEDS: hydroCHLOROthiazide 25 MG TABLET PO (08:16)
[2025-03-12] MEDS: Ferrous Sulfate 324 MG TABLET.DR PO (08:16)
[2025-03-12] MEDS: Famotidine 20 MG TABLET PO (08:16)
--- NOTE | 2025-03-12 08:49 | PC.NURSE ---
Pt amby=ulating in hallway with walker/steady gait; awaiting dispo from care team
--- NOTE | 2025-03-12 08:50 | MHC.EDTECH ---
This tech assisted patient to the bathroom to drain and burp colostomy bag. Firm feces found in bag. Unable to empty bag completely. RN aware.
[2025-03-12 09:05] VITALS: BP 131/50; PULSE 69; RESP 13; TEMP 36.3; O2SAT 94
== END 2025-03-12 09:31 | disposition home or self-care (01) ==
PROVIDERS: Physician Assistant Medical; Emergency Provider Emergency Medicine; PCP Internal Medicine
DX: F33.1 Major depressive disorder, recurrent, moderate (principal); R45.851 Suicidal ideations; F79 Unspecified intellectual disabilities; Z79.899 Other long term (current) drug therapy; Z87.891 Personal history of nicotine dependence; Z51.81 Encounter for therapeutic drug level monitoring
CPT/HCPCS: 36415; 80053; 80143; 80179; 80307; 81001; 83735; 85025; 99285; S9485

== ENCOUNTER 2025-04-06 09:18 | Outpatient (REF) | payer MEDICARE, MEDICAID, SELFPAY ==
--- OUTSIDE RECORDS SUMMARY | 2025-04-06 09:30 | XMS_ITS | Encounter Summary ---
Author Organization [facility] Address [address] [place] [address] Care Team Providers Care Hotel Reservation Agent Name Role Phone Marc Longo MD Primary Care Provider [phone] Encounter Details Date Type Department Care Team (Late st Contact Info) Description 01/23/2025 Lab Requisition [facility] - Main Lab [address] [place] [address] Courtney Roger MD [address] [phone] Anemia, unspecified; Other disorders of electrolyte and [...] Care Team (Late st Contact Info) Description 06/20/2025 2:30 PM EDT Office Visit Adult Medicine [address] [phone] Marc Longo MD [address] [place] [phone] 06/21/2025 1:30 PM EDT Office Visit [facility] Hematology Oncology [address] [place] [phone] Heide Covarrubias MD [address] [place] [address] documented as of this encounter Procedures Procedure [...] mmol/L LAB CHEMISTRY METHOD 01/24/2025 1:[address] [facility] Potassium 4.3 3.5 - 5.5 mmol/L LAB CHEMISTRY METHOD 01/24/2025 1:[address] [facility] Chloride 104 96 - 110 mmol/L LAB CHEMISTRY METHOD 01/24/2025 1:[address] [facility] CO2 28 21 - 32 mmol/L LAB CHEMISTRY METHOD 01/24/2025 1:[address] [facility] Anion Gap 8 3 - 11 LAB CHEMISTRY METHOD 01/24/2025 1:[address] [facility] Glucose 91 70 - 100 mg/dL LAB CHEMISTRY METHOD 01/24/2025 1:[address] [facility] BUN 30(H) 5 - 25 mg/dL LAB CHEMISTRY METHOD 01/24/2025 1:[address] [facility] Creatinine 0.94 0.50 - 1.10 mg/dL LAB CHEMISTRY METHOD 01/24/2025 1:[address] [facility] eGFR 73 >=60 mL/min/1. 73m2 LAB CHEMISTRY METHOD 01/24/2025 1:[address] [facility] Comment:Calculation based on the Chronic Kidney Disease Epidemiology Collaboration (CKD-EPI) equation refit without adjustment for race. BUN/Creatinine Ratio 31.9 LAB CHE[facility]STR[facility] Calcium 9.7 8.5 - 10.5 mg/dL LAB CHEMISTRY METHOD [facility] AST (SGOT) 37 10 - 42 unit/L LAB CHEMISTRY METHOD 01/24/2025 1:[address] [facility] ALT (SGPT) 67(H) 10 - 60 unit/L LAB CHEMISTRY METHOD [facility] Alkaline Phosphatase 108 42 - 121 unit/L LAB CHEMISTRY METHOD 01/24/2025 1:[address] [facility] Total Protein 6.6 6.0 - 8.0 g/dL LAB CHEMISTRY METHOD 01/24/2025 1:[address] [facility] Albumin 3.4 3.2 - 5.0 g/dL LAB CHEMISTRY METHOD 01/24/2025 1:[address] [facility] Total Bilirubin 0.3 0.0 - 1.4 mg/dL LAB CHEMISTRY METHOD 01/24/2025 1:[address] [facility] Blood Venous blood specimen / Unknown Venipuncture / Unknown 01/24/2025 9:25 AM EDT 01/24/2025 11:22 AM EDT us Courtney Roger MD LAB BLOOD ORDERABLES Fin al Result [facility] [address] [place] [address], * (ABNORMAL) Complete blood count (01/24/2025 9:25 AM EDT) WBC 8.8 4.8 - 10.8 K/mcL LAB HEMETOLOGY METHOD 01/24/2025 12:[address] [facility] RBC 3.70(L) 3.80 - 4.80 M/mcL LAB HEMETOLOGY METHOD 01/24/2025 12:[address] [facility] Hemoglobin 12.4 11.5 - 16.0 g/dL LAB HEMETOLOGY METHOD 01/24/2025 12:[address] [facility] Hematocrit 37.7 35.0 - 47.0 % LAB HEMETOLOGY METHOD 01/24/2025 12:[address] [facility] MCV 102.7(H) 79.0 - 98.0 FL LAB HEMETOLOGY METHOD 01/24/2025 12:[address] [facility] MCH 33.8(H) 27.0 - 32.0 pcg LAB HEMETOLOGY METHOD 01/24/2025 12:[address] [facility] MCHC 32.9 32.0 - 37.0 g/dL LAB HEMETOLOGY METHOD 01/24/2025 12:[address] [facility] RDW 12.7 11.0 - 15.0 % LAB HEMETOLOGY METHOD 01/24/2025 12:[address] [facility] Platelets 142 130 - 400 K/mcL LAB HEMETOLOGY METHOD 01/24/2025 12:[address] [facility] MPV 11.8(H) 7.0 - 11.0 FL LAB HEMETOLOGY METHOD 01/24/2025 12:[address] [facility] NRBC 0.0 <1.0 % LAB HEMETOLOGY METHOD 01/24/2025 12:[address] [facility] NRBC Absolute 0.00 <0.10 K/mcL LAB HEMETOLOGY METHOD 01/24/2025 12:[address] [facility] Blood Venous blood specimen / Unknown Venipuncture / Unknown 01/24/2025 9:25 AM EDT 01/24/2025 11:22 AM EDT Courtney Roger MD LAB BLOOD ORDERABLES Fin al Result [facility] [address] [place] [address], documented in this encounter Visit Diagnoses Diagnosis Anemia, unspecified Other disorders of electrolyte and fluid balance, not elsewhere classified documented in this encounter Care Teams Hotel Reservation Agent Relationship Specialty Start Date End Date Marc Longo MD [address] [place] [phone] PCP - General Internal Medicine 07/14/15 documented as of this encounter
--- OUTSIDE RECORDS SUMMARY | 2025-04-06 09:30 | XMS_ITS | Clinical Summary ---
Author Organization [facility] Address [address] [place] [address] Care Team Providers Care Program Evaluator Name Role Phone Marc Longo MD Primary Care Provider [phone] Allergies Active Allergy Reactions Criticality Noted Date Comments Aspirin 04/20/2007 Rash; NOT ALLERGIC PER PATIENT Rash; NOT ALLERGIC PER PATIENT Azithromycin Swelling 09/18/2015 Carisoprodol 07/21/2007 Codeine 11/17/2007 Gi upset Gi upset Diazepam 04/20/2007 gi upset,vom gi upset,vom Gabapentin 07/29/2014 nausea nausea Morphine 04/20/2007 gi upset,vom gi upset,vom Opium 02/02/2018 Oxycodone-Acetaminophen 04/20/2007 gi upset gi upset [id number]-Pee-Szbq-Nasulf-Na Asc-C 08/01/2017 Pheniramine 04/20/2007 Prednisone 02/29/2016 nausea [...] 71 06/22/2024 2:57 PM EDT Temperature 37.7 C (99.8 F) 06/22/2024 2:57 PM EDT Respiratory Rate - - Oxygen Saturation 98% [...] Vaccine (1 of 2) 2021 Influenza Vaccine (Season Ended) 2025 RSV Ped < 20 months Aged Out No longe r eligible based on patient's age to complete this topic Care Teams Program Evaluator Relationship Specialty Start Date End Date Marc Longo MD PCP - General Internal Medicine 06/24/22
--- OUTSIDE RECORDS SUMMARY | 2025-04-24 20:00 | XMS_ITS | Clinical Summary ---
Author Organization Unknown Care Team Providers Care Application Support Analyst Name Role Phone JOSE MONTGOMERY, CHYNA Unavailable Unavailable ARPAN RN, YUE Unavailable Unavailable EDIE ANDERSONW, GENA Unavailable Unavailable Payers Payer Name Policy Type Policy Number Effective Date Expira tion Date MEDICARE - [place] PDGM [id number] Problems Condition Name Condition Details Condition Category Status Onset Date Resolution Date Last Treatment Date Treating Clinician Comments NONINFECTIVE GASTROENTERI TIS AND COLITIS, UNSPECIFIED Active 10-06 00:00: 00 MAJOR DEPRESSIVE DISORDER, RECURRENT, UNSPECIFIED Active 10-06 00:00: 00 POST-TRAUMAT IC STRESS DISORDER, UNSPECIFIED Active 10-06 00:00: 00 HYPERTENSIVE CHRONIC KIDNEY DISEASE W STG 1-4/UNSP CHR KDNY Active 10-06 00:00: 00 CHRONIC KIDNEY DISEASE, STAGE 3B Active 10-06 00:00: 00 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 Active 10-06 00:00: 00 OTHER CONSTIPATION Active 10-06 00:00: 00 RHEUMATIC MITRAL STENOSIS Active 10-06 00:00: 00 ANXIETY DISORDER, UNSPECIFIED Active 10-06 00:00: 00 HYPERLIPIDEM IA, UNSPECIFIED Active 10-06 00:00: 00 INSOMNIA, UNSPECIFIED Active 10-06 00:00: 00 OBSTRUCTIVE SLEEP APNEA (ADULT) (PEDIATRIC) Active 10-06 00:00: 00 Irritable bowel syndrome, unspecified Active 10-06 00:00: 00 Allergies, Adverse Reactions, Alerts Allergy Name Allergy Type Status Severity Reaction(s) Onset Date Inactive Date Treating Clinician Comments OPIOIDS Propensity to adverse reactions Active 2025-02 11:28:4 8 Medications Ordered Medication Name Filled Medication Name Start Date Stop Date Current Medication? Ordering Clinician Indication Dosage Frequency Signature (SIG) Comments Components amlodipine 5 mg tablet 2020-0 1-03 00:00: 00 02-25 00:00 :00 No [id number] 1.5 tablet DAILY 1.5 tablet DAILY (route: oral) Alternate Route: BY MOUTH. Med Classific ation: Cardiovas cular Therapy Agents buspirone 10 mg tablet 1- 00:00: 00 08-23 09:28 :46.5 17 No [id number] 1 tablet 2 (TWO) TIMES A DAY 1 tablet 2 (TWO) TIMES A DAY (route: oral) Alternate Route: BY MOUTH. Med Classific ation: Central Nervous System Agents docusate sodium 100 mg capsule 3-12 00:00: 00 09-28 23:59 :00 No [id number] 1 capsule 3 (THREE) TIMES A DAY NEEDED 1 capsule 3 (THREE) TIMES A DAY NEEDED (route: oral) Alternate Route: BY MOUTH. Med Classific ation: Gastroint estinal Therapy Agents metoprolol tartrate 25 mg tablet 1- 00:00: 00 08-13 23:59 :00 No [id number] 2 tablet DAILY 2 tablet DAILY (route: oral) Alternate Route: ) BY MOUTH. Med Classific ation: Cardiovas cular Therapy Agents omeprazole 20 mg capsule,del ayed release 3-13 00:00: 00 02-25 00:00 :00 No [id number] 2 capsule DAILY 2 capsule DAILY (route: oral) Alternate Route: BY MOUTH. Med Classific ation: Gastroint estinal Therapy Agents ondansetron HCl 4 mg tablet 3-13 00:00: 00 06-11 23:59 :00 No [id number] FOR NAUSEA 1 tablet EVERY 8 HOURS NEEDED 1 tablet EVERY 8 HOURS NEEDED (route: oral) Alternate Route: BY MOUTH. Med Classific ation: Gastroint estinal Therapy Agents risperidone 0.5 mg tablet 2-29 00:00: 00 03-11 23:59 :00 No [id number] 1 tablet ONCE A DAY 1 tablet ONCE A DAY (route: oral) Alternate Route: BY MOUTH. Med Classific ation: Central Nervous System Agents sertraline 100 mg tablet 1- 00:00: 08-23 09:29 :18.7 9 No [id number] 1 tablet EVERY 1 tablet EVERY (route: oral) Alternate Route: BY MOUTH. Med Classific ation: Central Nervous System Agents sertraline 25 mg tablet 11-04 00:00: 00 08-23 09:28 :57.9 83 No [id number] 1 tablet DAILY 1 tablet DAILY (route: oral) Alternate Route: BY MOUTH. Med Classific ation: Central Nervous System Agents trazodone 100 mg tablet 10-08 00:00: 00 Yes [id number] 1 tablet AT BEDTIME 1 tablet AT BEDTIME (route: oral) Alternate Route: BY MOUTH. Med Classific ation: Central Nervous System Agents trazodone 50 mg tablet 11-04 00:00: 00 03-11 23:59 :00 No [id number] 1 tablet AT BEDTIME 1 tablet AT BEDTIME (route: oral) Alternate Route: BY MOUTH. Med Classific ation: Central Nervous System Agents Vitamin B-12 1,000 mcg tablet 12-03 00:00: 00 09-28 23:59 :00 No [id number] 2 tablet DAILY 2 tablet DAILY (route: oral) Alternate Route: ) BY MOUTH. Med Classific ation: Electroly te Balance-N utritiona l Products buspirone 15 mg tablet 2019-10 00:00: 00 02-25 00:00 :00 No [id number] 15 mg 3 TIMES DAILY 15 mg 3 TIMES DAILY (route: oral) Med Classific ation: Central Nervous System Agents sertraline 100 mg tablet 2019-10 00:00: 00 Yes [id number] 150 mg DAILY 150 mg DAILY (route: oral) Med Classific ation: Central Nervous System Agents dicyclomine 10 mg capsule 01-09 00:00: 00 02-25 00:00 :00 No [id number] 1 capsule 2 TIMES DAILY 1 capsule 2 TIMES DAILY (route: oral) Med Classific ation: Gastroint estinal Therapy Agents atorvastati n 10 mg tablet 2020-10 00:00: 00 Yes [id number] 1 tablet BEDTIME 1 tablet BEDTIME (route: oral) Med Classific ation: Cardiovas cular Therapy Agents folic acid 1 mg tablet 2020-10 00:00: 00 Yes [id number] 1 tablet DAILY 1 tablet DAILY (route: oral) Med Classific ation: Electroly te Balance-N utritiona l Products Tylenol Extra Strength 500 mg tablet 2020-10 00:00: 00 02-25 00:00 :00 No [id number] 2 tablet 2 TIMES DAILY 2 tablet 2 TIMES DAILY (route: oral) Med Classific ation: Analgesic , Anti-infl ammatory or Antipyret ic metoprolol tartrate 25 mg tablet 2021-10 00:00: 00 02-09 00:00 :00 No [id number] 1 tablet DAILY 1 tablet DAILY (route: oral) Alternate Route: ) BY MOUTH. Med Classific ation: Cardiovas cular Therapy Agents Laxative PEG 3350 17 gram/dose oral powder 04-13 00:00: 00 11-25 23:59 :00 No Per instruc tions DAILY Per instructio ns DAILY (route: oral) Med Classific ation: Gastroint estinal Therapy Agents GaviLyte-G 236 gram-22.74 gram-6.74 gram-5.86 gram oral solution 04-27 00:00: 00 09-28 23:59 :00 No Per instruc tions DAILY Per instructio ns DAILY (route: oral) Med Classific ation: Gastroint estinal Therapy Agents ferrous sulfate 325 mg (65 mg iron) tablet -14 00:00: 00 02-25 00:00 :00 No 1 tablet DAILY 1 tablet DAILY (route: oral) Med Classific ation: Electroly te Balance-N utritiona l Products doxycycline hyclate 100 mg tablet 10-14 00:00: 00 10-24 23:59 :00 No 1 tablet 2 TIMES DAILY 1 tablet 2 TIMES DAILY (route: oral) Med Classific ation: Anti-Infe ctive Agents albuterol sulfate HFA 90 mcg/actuati on aerosol inhaler 10-29 00:00: 00 02-25 00:00 :00 No 2 puff EVERY 4 HOURS 2 puff EVERY 4 HOURS (route: inhalation ) Med Classific ation: Respirato ry Therapy Agents Colace 100 mg capsule 02-09 00:00: 00 03-11 23:59 :00 No 1 capsule BEDTIME 1 capsule BEDTIME (route: oral) Med Classific ation: Gastroint estinal Therapy Agents Miralax 17 gram/dose oral powder 02-09 00:00: 00 Yes 17 gram DAILY 17 gram DAILY (route: oral) Med Classific ation: Gastroint estinal Therapy Agents hydroxyzine HCl 50 mg tablet 02-09 00:00: 00 02-25 23:59 :00 No 1 tablet 2 TIMES DAILY 1 tablet 2 TIMES DAILY (route: oral) Med Classific ation: Central Nervous System Agents nystatin 100,000 unit/gram topical powder 02-09 00:00: 00 Yes Per instruc tions DIRECTED Per instructio ns DIRECTED (route: topical) Med Classific ation: Dermatolo gical clonidine HCl 0.1 mg tablet 02-09 00:00: 00 03-11 23:59 :00 No 1 tablet 3 TIMES DAILY 1 tablet 3 TIMES DAILY (route: oral) Med Classific ation: Cardiovas cular Therapy Agents famotidine 20 mg tablet 02-09 00:00: 00 03-11 23:59 :00 No 1 tablet 2 TIMES DAILY 1 tablet 2 TIMES DAILY (route: oral) Med Classific ation: Gastroint estinal Therapy Agents haloperidol 2 mg tablet 02-09 00:00: 00 02-25 00:00 :00 No 1 tablet 2 TIMES DAILY 1 tablet 2 TIMES DAILY (route: oral) Med Classific ation: Central Nervous System Agents hydroxyzine HCl 25 mg tablet 02-25 00:00: 00 03-11 23:59 :00 No 1 tablet EVERY 6 HOURS 1 tablet EVERY 6 HOURS (route: oral) Med Classific ation: Central Nervous System Agents Senna Lax 8.6 mg tablet 02-25 00:00: 00 Yes 1 tablet 2 TIMES DAILY 1 tablet 2 TIMES DAILY (route: oral) Med Classific ation: Gastroint estinal Therapy Agents albuterol sulfate HFA 90 mcg/actuati on aerosol inhaler 03-11 00:00: 00 Yes 2 puff EVERY 4 HOURS 2 puff EVERY 4 HOURS (route: inhalation ) Med Classific ation: Respirato ry Therapy Agents dicyclomine 10 mg capsule 03-11 00:00: 00 Yes 1 capsule 3 TIMES DAILY 1 capsule 3 TIMES DAILY (route: oral) Med Classific ation: Gastroint estinal Therapy Agents hydrochloro thiazide 25 mg tablet 03-11 00:00: 00 Yes 1 tablet DAILY 1 tablet DAILY (route: oral) Med Classific ation: Cardiovas cular Therapy Agents hydroxyzine HCl 50 mg tablet 03-11 00:00: 00 Yes 1 tablet 3 TIMES DAILY 1 tablet 3 TIMES DAILY (route: oral) Med Classific ation: Central Nervous System Agents risperidone 0.5 mg tablet 03-11 00:00: 00 Yes 2 tablet BEDTIME 2 tablet BEDTIME (route: oral) Med Classific ation: Central Nervous System Agents trazodone 50 mg tablet 03-11 00:00: 00 Yes 0.5 tablet BEDTIME 0.5 tablet BEDTIME (route: oral) Med Classific ation: Central Nervous System Agents Vital Signs Vital Name Observation Time Observation Value Commen ts Temperature 2025-04-05 15:23:00.000 97.1 [degF] Temperature 2025-04-01 16:12:00.000 97.4 [degF] Temperature 2025-03-24 16:06:00.000 97.3 [degF] Temperature 2025-03-15 15:30:00.000 98.4 [degF] Temperature 2025-03-11 13:13:00.000 97.9 [degF] Temperature 2025-03-08 11:34:00.000 97.8 [degF] Temperature 2025-03-04 08:37:00.000 98.1 [degF] Temperature 2025-02-25 15:25:00.000 97.6 [degF] BMI (%) 2025-02-25 15:25:00.000 27 kg/m2 Height 2025-02-25 15:25:00.000 59 [in_us] Pulse 2025-04-05 15:23:00.000 74 /min Pulse 2025-04-01 16:12:00.000 83 /min Pulse 2025-03-24 16:06:00.000 83 /min Pulse 2025-03-15 15:30:00.000 80 /min Pulse 2025-03-11 13:13:00.000 84 /min Pulse 2025-03-08 11:34:00.000 75 /min Pulse 2025-03-04 08:37:00.000 72 /min Pulse 2025-02-25 15:25:00.000 77 /min O2 Saturation (%) 2025-04-05 15:23:00.000 98 % O2 Saturation (%) 2025-03-24 16:06:00.000 98 % O2 Saturation (%) 2025-03-15 15:30:00.000 97 % O2 Saturation (%) 2025-03-11 13:13:00.000 98 % O2 Saturation (%) 2025-03-08 11:34:00.000 98 % O2 Saturation (%) 2025-03-04 08:37:00.000 98 % O2 Saturation (%) 2025-02-25 15:25:00.000 97 % Respirations 2025-04-05 15:23:00.000 16 /min Respirations 2025-04-01 16:12:00.000 16 /min Respirations 2025-03-24 16:06:00.000 16 /min Respirations 2025-03-11 13:13:00.000 18 /min Respirations 2025-03-04 08:37:00.000 16 /min Respirations 2025-02-25 15:25:00.000 16 /min Weight (lbs) 2025-02-25 15:25:00.000 138 [lb_av] Systolic Blood Pressure 2025-04-05 15:23:00.000 126 mm [Hg] Systolic Blood Pressure 2025-04-01 16:12:00.000 122 mm [Hg] Systolic Blood Pressure 2025-03-24 16:06:00.000 124 mm [Hg] Systolic Blood Pressure 2025-03-15 15:30:00.000 142 mm [Hg] Systolic Blood Pressure 2025-03-11 13:13:00.000 140 mm [Hg] Systolic Blood Pressure 2025-03-08 11:34:00.000 130 mm [Hg] Systolic Blood Pressure 2025-03-04 08:37:00.000 142 mm [Hg] Systolic Blood Pressure 2025-02-25 15:25:00.000 144 mm [Hg] Diastolic Blood Pressure 2025-04-05 15:23:00.000 82 mm [Hg] Diastolic Blood Pressure 2025-04-01 16:12:00.000 68 mm [Hg] Diastolic Blood Pressure 2025-03-24 16:06:00.000 68 mm [Hg] Diastolic Blood Pressure 2025-03-15 15:30:00.000 84 mm [Hg] Diastolic Blood Pressure 2025-03-11 13:13:00.000 68 mm [Hg] Diastolic Blood Pressure 2025-03-08 11:34:00.000 80 mm [Hg] Diastolic Blood Pressure 2025-03-04 08:37:00.000 80 mm [Hg] Diastolic Blood Pressure 2025-02-25 15:25:00.000 92 mm [Hg] Plan of Treatment Planned Activity Planned Date Details Comments Future Scheduled Test SKILLED NU RSE TO EVALUATE PATIENT, IDENTIFY PRIMARY AND CO-MORBID CONDITIONS CODED PER CODING GUIDELINES, AND DEVELOP PATIENT SPECIFIC PLAN OF CARE THAT INCLUDES PATIENT GOAL FOR HOME HEALTH. [code = SKILLED NURSE TO EVALUATE PATIENT, IDENTIFY PRIMARY AND CO-MORBID CONDITIONS CODED PER CODING GUIDELINES, AND DEVELOP PATIENT SPECIFIC PLAN OF CARE THAT INCLUDES PATIENT GOAL FOR HOME HEALTH.] Future Scheduled Test SKILLED NU RSE TO REVIEW PATIENT MEDICATIONS (PRESCRIPTION/OTC). INSTRUCT PATIENT/CAREGIVER ON ALL MEDICATIONS INCLUDING PURPOSE, WHEN TO TAKE, IMPORTANCE OF MEDICATION ADHERENCE, MONITORING OF EFFECTIVENESS, ADVERSE DRUG REACTIONS, POSSIBLE SIDE EFFECTS, AND WHEN TO NOTIFY AGENCY OR PHYSICIAN/PROVIDER OF ANY CONCERNS. [code = SKILLED NURSE TO REVIEW PATIENT MEDICATIONS (PRESCRIPTION/OTC). INSTRUCT PATIENT/CAREGIVER ON ALL MEDICATIONS INCLUDING PURPOSE, WHEN TO TAKE, IMPORTANCE OF MEDICATION ADHERENCE, MONITORING OF EFFECTIVENESS, ADVERSE DRUG REACTIONS, POSSIBLE SIDE EFFECTS, AND WHEN TO NOTIFY AGENCY OR PHYSICIAN/PROVIDER OF ANY CONCERNS.] Future Scheduled Test PATIENT MONTANEZ S A RISK OF HOSPITALIZATION AND ED USE. SKILLED NURSE TO ESTABLISH SUPPORT MEASURES TO MINIMIZE RISK OF HOSPITALIZATION AND ED USE, AND INSTRUCT PATIENT/CAREGIVER ON METHODS TO REDUCE AVOIDABLE HOSPITALIZATION AND ED USE. [code = PATIENT HAS A RISK OF HOSPITALIZATION AND ED USE. SKILLED NURSE TO ESTABLISH SUPPORT MEASURES TO MINIMIZE RISK OF HOSPITALIZATION AND ED USE, AND INSTRUCT PATIENT/CAREGIVER ON METHODS TO REDUCE AVOIDABLE HOSPITALIZATION AND ED USE.] Future Scheduled Test SKILLED NU RSE TO PROVIDE INSTRUCTION TO PATIENT/CAREGIVER RELATED TO DISCHARGE PLANNING. [code = SKILLED NURSE TO PROVIDE INSTRUCTION TO PATIENT/CAREGIVER RELATED TO DISCHARGE PLANNING.] Future Scheduled Test SKILLED NU RSE TO PERFORM ENVIRONMENTAL SAFETY RISK ASSESSMENT AND FALL RISK ASSESSMENT AND PROVIDE INSTRUCTION TO IMPLEMENT ENVIRONMENTAL SAFETY AND FALL PREVENTION STRATEGIES THROUGHOUT THE CERTIFICATION PERIOD. SKILLED NURSE WILL MAINTAIN SITUATIONAL AWARENESS AND WILL NOTIFY CLINICAL INSTRUMENTATION INSTRUCTOR AND PHYSICIAN/PROVIDER WITH ANY CHANGE IN CONDITION. [code = SKILLED NURSE TO PERFORM ENVIRONMENTAL SAFETY RISK ASSESSMENT AND FALL RISK ASSESSMENT AND PROVIDE INSTRUCTION TO IMPLEMENT ENVIRONMENTAL SAFETY AND FALL PREVENTION STRATEGIES THROUGHOUT THE CERTIFICATION PERIOD. SKILLED NURSE WILL MAINTAIN SITUATIONAL AWARENESS AND WILL NOTIFY CLINICAL INSTRUMENTATION INSTRUCTOR AND PHYSICIAN/PROVIDER WITH ANY CHANGE IN CONDITION.] Future Scheduled Test SKILLED NU RSE FOR OBSERVATION AND ASSESSMENT OF PATIENTS PAIN LEVEL AND EFFECTIVENESS OF PAIN MANAGEMENT REGIMEN. SKILLED NURSE TO INSTRUCT PATIENT/CAREGIVER REGARDING PHARMACOLOGIC AND NON-PHARMACOLOGIC PAIN CONTROL MEASURES. SKILLED NURSE TO REPORT TO PHYSICIAN IF PAIN LEVEL IS OUTSIDE OF ESTABLISHED PARAMETERS. [code = SKILLED NURSE FOR OBSERVATION AND ASSESSMENT OF PATIENTS PAIN LEVEL AND EFFECTIVENESS OF PAIN MANAGEMENT REGIMEN. SKILLED NURSE TO INSTRUCT PATIENT/CAREGIVER REGARDING PHARMACOLOGIC AND NON-PHARMACOLOGIC PAIN CONTROL MEASURES. SKILLED NURSE TO REPORT TO PHYSICIAN IF PAIN LEVEL IS OUTSIDE OF ESTABLISHED PARAMETERS.] Future Scheduled Test SKILLED NU RSE TO ASSESS PATIENT'S SKIN INTEGRITY AND INSTRUCT PATIENT/CAREGIVER ON MEASURES TO PREVENT PRESSURE ULCERS. [code = SKILLED NURSE TO ASSESS PATIENT'S SKIN INTEGRITY AND INSTRUCT PATIENT/CAREGIVER ON MEASURES TO PREVENT PRESSURE ULCERS.] Future Scheduled Test SKILLED NU RSE TO ASSESS ANXIETY AND PROVIDE ASSISTANCE TO PATIENT FOR UNDERSTANDING AND MANAGEMENT OF FEELINGS. [code = SKILLED NURSE TO ASSESS ANXIETY AND PROVIDE ASSISTANCE TO PATIENT FOR UNDERSTANDING AND MANAGEMENT OF FEELINGS.] Future Scheduled Test SKILLED NU RSE TO PROVIDE ASSESSMENT AND TEACHING/REINFORCEMENT OF MANAGEMENT OF DEPRESSION INCLUDING DISEASE PROCESS, MEDICATION MANAGEMENT, COPING SKILLS AND IDENTIFY CHANGES ASSOCIATED WITH DEPRESSIVE DISORDERS FOR EARLY INTERVENTION. [code = SKILLED NURSE TO PROVIDE ASSESSMENT AND TEACHING/REINFORCEMENT OF MANAGEMENT OF DEPRESSION INCLUDING DISEASE PROCESS, MEDICATION MANAGEMENT, COPING SKILLS AND IDENTIFY CHANGES ASSOCIATED WITH DEPRESSIVE DISORDERS FOR EARLY INTERVENTION.] Future Scheduled Test SKILLED NU RSE TO INSTRUCT/REINFORCE MEASURES TO PREVENT BARRIERS TO CARE. [code = SKILLED NURSE TO INSTRUCT/REINFORCE MEASURES TO PREVENT BARRIERS TO CARE.] Future Scheduled Test SKILLED NU RSE TO ASSESS PATIENTS PSYCHOSOCIAL STATUS TO IDENTIFY POTENTIAL ISSUES THAT MAY COMPLICATE THE PROVISION OF THE PLAN OF CARE INCLUDING THE PATIENTS ABILITY TO ACCESS COMMUNITY RESOURCES AND PSYCHOSOCIAL SUPPORT SERVICES. [code = SKILLED NURSE TO ASSESS PATIENTS PSYCHOSOCIAL STATUS TO IDENTIFY POTENTIAL ISSUES THAT MAY COMPLICATE THE PROVISION OF THE PLAN OF CARE INCLUDING THE PATIENTS ABILITY TO ACCESS COMMUNITY RESOURCES AND PSYCHOSOCIAL SUPPORT SERVICES.] Future Scheduled Test SKILLED NU RSE FOR O/A OF RESPIRATORY SYSTEM TO IDENTIFY CHANGES ASSOCIATED WITH EXACERBATION AND TO PROVIDE SKILLED TEACHING ON MANAGEMENT OF ASTHMA RESPIRATORY DISEASE PROCESS. [code = SKILLED NURSE FOR O/A OF RESPIRATORY SYSTEM TO IDENTIFY CHANGES ASSOCIATED WITH EXACERBATION AND TO PROVIDE SKILLED TEACHING ON MANAGEMENT OF ASTHMA RESPIRATORY DISEASE PROCESS.] Future Scheduled Test SKILLED NU RSE TO PROVIDE TEACHING ON SIGNS AND SYMPTOMS AND MANAGEMENT OF HYPERTENSION. [code = SKILLED NURSE TO PROVIDE TEACHING ON SIGNS AND SYMPTOMS AND MANAGEMENT OF HYPERTENSION.] Future Scheduled Test SKILLED NU RSE FOR O/A AND SKILLED TEACHING RELATED TO SIGNS AND SYMPTOMS AND MANAGEMENT OF ANEMIA. [code = SKILLED NURSE FOR O/A AND SKILLED TEACHING RELATED TO SIGNS AND SYMPTOMS AND MANAGEMENT OF ANEMIA.] Future Scheduled Test SKILLED NU RSE FOR O/A TO IDENTIFY CHANGES ASSOCIATED WITH COGNITIVE DELAY AND PROVIDE INSTRUCTION RELATED TO SAFETY MEASURES TO PREVENT INJURY SECONDARY TO IMPAIRED NEUROLOGICAL STATUS. SKILLED NURSE TO REPORT SIGNIFICANT CHANGES OF NEUROLOGIC STATUS TO PHYSICIAN FOR EARLY INTERVENTION. [code = SKILLED NURSE FOR O/A TO IDENTIFY CHANGES ASSOCIATED WITH COGNITIVE DELAY AND PROVIDE INSTRUCTION RELATED TO SAFETY MEASURES TO PREVENT INJURY SECONDARY TO IMPAIRED NEUROLOGICAL STATUS. SKILLED NURSE TO REPORT SIGNIFICANT CHANGES OF NEUROLOGIC STATUS TO PHYSICIAN FOR EARLY INTERVENTION.] Future Scheduled Test SKILLED NU RSE FOR TEACHING/REINFORCEMENT OF OSTOMY CARE INCLUDING APPLIANCE AND STOMAL CARE. [code = SKILLED NURSE FOR TEACHING/REINFORCEMENT OF OSTOMY CARE INCLUDING APPLIANCE AND STOMAL CARE.] Future Scheduled Test SKILLED NU RSE FOR O/A, TEACHING RELATED TO COLITIS, CONSTIPATION FOR EARLY IDENTIFICATION OF EXACERBATION OF DISEASE PROCESS. [code = SKILLED NURSE FOR O/A, TEACHING RELATED TO COLITIS, CONSTIPATION FOR EARLY IDENTIFICATION OF EXACERBATION OF DISEASE PROCESS.] Future Scheduled Test SKILLED NU RSE FOR O/A AND SKILLED TEACHING RELATED TO ALTERED SKIN INTEGRITY UNDER BILAT BREASTS [code = SKILLED NURSE FOR O/A AND SKILLED TEACHING RELATED TO ALTERED SKIN INTEGRITY UNDER BILAT BREASTS] Future Scheduled Test SKILLED NU RSE FOR INSTRUCTION/ REINFORCEMENT OF NEEDS RELATED TO NUTRITION/HYDRATION. [code = SKILLED NURSE FOR INSTRUCTION/ REINFORCEMENT OF NEEDS RELATED TO NUTRITION/HYDRATION.] Future Scheduled Test SKILLED NU RSE FOR O/A, TEACHING AND MANAGEMENT OF CKD, UTI FOR EARLY IDENTIFICATION OF EXACERBATION OF DISEASE PROCESS [code = SKILLED NURSE FOR O/A, TEACHING AND MANAGEMENT OF CKD, UTI FOR EARLY IDENTIFICATION OF EXACERBATION OF DISEASE PROCESS] Future Scheduled Test SKILLED NU RSE MAY COLLECT URINE SAMPLE FOR URINE REAGENT STRIP TESTING AND/OR URINALYSIS WITH CS 1-3 PRN IF INDICATED FOR SIGNS AND SYMPTOMS OF UTI. IF REAGENT STRIP TEST IS POSITIVE FOR UTI, SKILLED NURSE TO TAKE URINE SAMPLE TO LAB FOR URINE CS AND REPORT RESULTS TO PHYSICIAN. [code = SKILLED NURSE MAY COLLECT URINE SAMPLE FOR URINE REAGENT STRIP TESTING AND/OR URINALYSIS WITH CS 1-3 PRN IF INDICATED FOR SIGNS AND SYMPTOMS OF UTI. IF REAGENT STRIP TEST IS POSITIVE FOR UTI, SKILLED NURSE TO TAKE URINE SAMPLE TO LAB FOR URINE CS AND REPORT RESULTS TO PHYSICIAN.] Future Scheduled Test PHYSICAL T HERAPIST TO EVALUATE PATIENT FOR GAIT [code = PHYSICAL THERAPIST TO EVALUATE PATIENT FOR GAIT] Goal Patient Goal - B E INDEPENDENT WITH COLOSTOMY Goal Provider Goal - A PLAN OF CARE WILL BE ESTABLISHED THAT MEETS PATIENT'S SHELTER NEEDS AND INCLUDES PATIENT GOAL FOR HOME HEALTH. Goal Provider Goal - PATIENT/CAREGIVER WILL VERBALIZE UNDERSTANDING OF EDUCATION PROVIDED ON MEDICATIONS BY THE END OF THE CERTIFICATION PERIOD. Goal Provider Goal - PATIENT WILL HAVE SUPPORT MEASURES ESTABLISHED TO PREVENT HOSPITALIZATION AND ED USE AND PATIENT/CAREGIVER WILL VERBALIZE/DEMONSTRATE METHODS TO REDUCE AVOIDABLE HOSPITALIZATION AND ED USE BY END OF EPISODE. Goal Provider Goal - PATIENT/CAREGIVER WILL VERBALIZE UNDERSTANDING OF DISCHARGE PLANNING INSTRUCTIONS BY DATE OF DISCHARGE. Goal Provider Goal - PATIENT/CAREGIVER WILL VERBALIZE/DEMONSTRATE EFFECTIVE ENVIRONMENTAL SAFETY AND FALL PREVENTION STRATEGIES, WILL REMAIN SAFE IN THE COMMUNITY, AND WILL BE FREE OF DANGER TO SELF AND OTHERS THROUGHOUT THE CERTIFICATION PERIOD. Goal Provider Goal - PATIENT/CAREGIVER WILL DEMONSTRATE UNDERSTANDING OF PHARMACOLOGIC AND NONPHARMACOLOGIC PAIN CONTROL MEASURES AND PATIENT WILL HAVE IMPROVEMENT IN PAIN INTERFERING WITH ACTIVITY EVIDENCED BY PAIN AT A LEVEL THAT IS ACCEPTABLE TO THE PATIENT AND PAIN LEVEL WITHIN ESTABLISHED PARAMETERS BY END OF CERTIFICATION PERIOD. Goal Provider Goal - PATIENT/CAREGIVER WILL VERBALIZE UNDERSTANDING OF PRESSURE ULCER PREVENTION BY END OF THE EPISODE. Goal Provider Goal - SYMPTOMS OF ANXIETY ARE IDENTIFIED AND INTERVENTIONS INITIATED TO ENABLE PATIENT TO UNDERSTAND AND MANAGE FEELINGS THROUGHOUT EPISODE. Goal Provider Goal - PATIENT/CAREGIVER WILL VERBALIZE/DEMONSTRATE UNDERSTANDING OF THE MANAGEMENT OF DEPRESSION THROUGHOUT THE CERTIFICATION PERIOD AND SYMPTOMS ARE IDENTIFIED AND MANAGED TO MAINTAIN PATIENT SAFETY IN THE HOME. Goal Provider Goal - PATIENT / CAREGIVER WILL VERBALIZE UNDERSTANDING OF BARRIERS PREVENTING PROPER CARE AND DEMONSTRATE MEASURES TO ELIMINATE THOSE BARRIERS DURING THIS EPISODE. Goal Provider Goal - CHANGES IN PSYCHOSOCIAL STATUS WILL BE IDENTIFIED AND PLAN IMPLEMENTED TO MINIMIZE PATIENT RISKS THROUGHOUT THE CERTIFICATION PERIOD. Goal Provider Goal - PATIENT/CAREGIVER WILL VERBALIZE/DEMONSTRATE MANAGEMENT OF RESPIRATORY DISEASE PROCESS. CHANGES IN RESPIRATORY STATUS WILL BE IDENTIFIED AND REPORTED TO PHYSICIAN FOR PROMPT INTERVENTION THROUGHOUT THE CERTIFICATION PERIOD. Goal Provider Goal - PATIENT/CAREGIVER WILL VERBALIZE SIGNS AND SYMPTOMS OF HYPERTENSION AND WILL BE ABLE TO DEMONSTRATE ABILITY TO MANAGE EXACERBATION BY END OF THE EPISODE. Goal Provider Goal - PATIENT/CARGIVER WILL VERBALIZE UNDERSTANDING OF ANEMIA INCLUDING SIGNS AND SYMPTOMS, MANAGEMENT OF COMPLICATIONS, AND PRESCRIBED TREATMENT REGIMEN BY END OF EPISODE. Goal Provider Goal - CHANGES IN NEUROLOGIC STATUS WILL BE IDENTIFIED AND REPORTED TO THE PHYSICIAN FOR PROMPT INTERVENTION OF ASSOCIATED RISK. PATIENT/CAREGIVER WILL VERBALIZE/DEMONSTRATE APPROPRIATE SAFETY MEASURES TO PREVENT INJURY BY THE END OF THE CERTIFICATION PERIOD. Goal Provider Goal - PATIENT/CAREGIVER WILL VERBALIZE KNOWLEDGE OF AND DEMONSTRATE INDEPENDENCE IN OSTOMY CARE BY THE END OF THE CERTIFICATION PERIOD. Goal Provider Goal - EXACERBATIONS OF GASTROINTESTINAL DISEASE WILL BE PROMPTLY IDENTIFIED AND INTERVENTIONS IMPLEMENTED TO MINIMIZE RISKS TO PATIENT BY END OF EPISODE. Goal Provider Goal - PATIENT/CAREGIVER WILL VERBALIZE/DEMONSTRATE UNDERSTANDING OF TEACHING RELATED TO ALTERED SKIN INTEGRITY BY END OF CERTIFICATION PERIOD. Goal Provider Goal - PATIENT/CAREGIVER WILL DEMONSTRATE ABILITY TO SELF MANAGE NEEDS RELATED TO NUTRITION/HYDRATION THROUGHOUT THE EPISODE. Goal Provider Goal - PATIENT/CAREGIVER WILL VERBALIZE UNDERSTANDING OF GENITOURINARY DISEASE PROCESS, AND EXACERBATIONS OF GENITOURINARY DISEASE WILL BE PROMPTLY IDENTIFIED FOR EARLY INTERVENTION THROUGHOUT THE CERTIFICATION PERIOD. Goal Provider Goal - URINE SPECIMEN WILL BE OBTAINED PRN FOR SIGNS AND SYMPTOMS OF UTI AND RESULTS WILL BE REPORTED TO PHYSICIAN THROUGHOUT THE CERTIFICATION PERIOD. Goal Provider Goal - A PHYSICAL THERAPY EVALUATION TO BE COMPLETED WITH RECOMMENDATIONS AND/OR WRITTEN PLAN OF TREATMENT ESTABLISHED FOR PHYSICIANS SIGNATURE. Progress Notes Progress Notes <paragraph>[Visit Date: 2024 by YUE ANTONY RN]:</paragraph><paragraph>SNV 04/05/25 ABNORMAL VS: WNL FALLS: DENIES MEDICATION CHANGES: NA ABNORMAL PHYSICAL ASSESSMENT FINDINGS: PATIENT REPORTS SKIN AROUND STOMA HURTS, PATIENT HAS BEEN HAVING MOM CHANGE IT WHENEBRR IT HURTS, BAG GAS BEEN CHANGED AT LEAST TWICE IN PAST 24 HR INCLUDING THIS MORNING. MOM USED SKIN PREP AND POWDER PRIOR TO CHANGE THIS MORNING. PATIENT ASKING THIS CERTIFIED SURGICAL TECHNICIAN TO CHANGE IT AGAIN, ADVISED AGAINST CHNAGE SINCE IT WAS JUST CHANGED AND GOOD SEAL FORMED, SURROUNDING SKIN WNL, CHANGING ONCE MORE WILL CAUSE MORE SKIN DISCOMFORT. PREFILLED MEDS FOR 2 WEEKS. SERTRALINE MOVED TO NOON SLOT, PATIENT WAS APPARENTLY AGITATED BECAUSE SHE IS USED TO TAKING MEDS QID. PANCAKING OCCURING TOP OF BAG, STOOL IS BROWN AND PASTY, PATIENT ONLY DRINKS COFFEE, ADVISED TO DRINK WATER TO MAKE STOOL LESS BULKY. PATIENT REFUSED VIDEO APPT WITH OSTOMY CARE, FELT EMBARRASSED. STRONGLY ENCOURAGED TO RESCHEDULE IN ORDER TO MASTER THE BAG CHANGE, GOT AGITATED AT THE SUGGESTION. PATIENT MAY HAVE AN APT IN [place] SOON O/A: AOX3. DENIES SOB LS CLEAR. DENIES CP PALPITATIONS AND DIZZINESS ABD SNT DENIES NVD DENIES DYSURIA NO EDEMA OR NEUROPATHY , POSITIVE PEDAL PULSES GAIT STEADY NO AD SKIN WARM DRY AND INTACT EDUCATION: HYDRATION AND NUTRITION, OSTOMY CARE, COPING WITH ANXIETY, PLAN TO DC IN 2 WEEKS. CG VERBALIZES UNDERSTANDING INTERVENTIONS NEEDED AT NEXT VISIT: REINFORCE TEACHING COMMUNICATION WITH MD OR OTHER CARE COORDINATION:SCHOOL SOCIAL WORKER. ORDERED [facility] TRANSPARENT REF [id number] ORDER NUMBER [id number] NEXT MD APPT: MRI TOMORROW. GI SURGERY SECOND OPINION THURS PATIENT/CG INSTRUCTED TO CALL [facility] 28/04 WITH QUESTIONS AND/OR CHANGE IN CONDITION, VERBALIZES UNDERSTANDING</paragraph> <paragraph>[Visit Date: 2024 by YUE ANTONY RN]:</paragraph><paragraph>SNV 04/01/25 ABNORMAL VS: WNL FALLS: DENIES MEDICATION CHANGES: NA ABNORMAL PHYSICAL ASSESSMENT FINDINGS: APPARENTLY VAPED WITH BF YESTERDAY, THEN LATER LAST NIGHT BECAME AGITATED WANTING TO BUY CIGS, THREATENING TO LEAVE THE HOUSE OR GO TO BF HOUSE. CALMER TODAY. SKIN SURROUNDING OSTOMY WNL, STOOL SOFT DARK BROWN, REQUIRED TEACHING ON WEARING LOOSER PANTS THAT DO NOT PULL ON BAG WHEN TAKING ON AND OFF PANTS AND NO SUBMERGING IN BATH. PATIENT HAS BEEN USING JETS IN BATH, TOLD DO NOT DO THIS. ASSISTED MOM WITH BAG CHANGE, PROVIDED REASSURANCE, SHE DID MAJORITY OF HANDS ON. HAS NOT TRIED TUBIGRIPS YET DUE TO HOT WEATHER, STATES WILL DO SO, TRACE EDEMA BLE. ABD TENDERNESS STILL, PAIN IS MANAGEABLE. MOM SAID PATIENT APPROVED FOR SENIOR HOUSING APPT IN [place], JUST WAITING FOR SPOT TO OPEN. PREFILLED MEDIPLANNER, MOM CALLED IN REFILL FOR HCTZ O/A: AOX3. DENIES SOB LS CLEAR. DENIES CP PALPITATIONS AND DIZZINESS DENIES NVD DENIES DYSURIA NO NEUROPATHY , POSITIVE PEDAL PULSES GAIT STEADY NO AD EDUCATION: STOMA CARE AND BAG CHANGE, COPING WITH ANXIETY, MOM VERBALIZES UNDERSTANDING INTERVENTIONS NEEDED AT NEXT VISIT: REINFORCE TEACHING TUES COMMUNICATION WITH MD OR OTHER CARE COORDINATION: MOM NEXT MD APPT: MRI WED, GI SECOND OPINION ABOUT STOMA REVERSAL THURS PATIENT/CG INSTRUCTED TO CALL [facility] 28/04 WITH QUESTIONS AND/OR CHANGE IN CONDITION, VERBALIZES UNDERSTANDING</paragraph> Encounters Start Date/Time End Date/Time Encounter Type Admission Type Attending Clinicians Care Facility Care Department Encounter ID Discharge Date Discharge Status Discharge Condition Discharge Reason Percent Goals Met 2025-02-25 00:00:00 2025-04-25 00:00:00 Outpatient YUE SAENZ [facility] [id number] 74.42
== END 2025-04-06 09:19 | disposition home or self-care (01) ==
LOC: HO.MRI 09:18
PROVIDERS: PCP Internal Medicine; Visit Provider Internal Medicine
DX: Z13.89 Encounter for screening for other disorder (principal)

== ENCOUNTER → 2025-04-15 14:22 | Outpatient (BNV) | payer MEDICARE, MEDICAID, SELFPAY | PROVIDERS: PCP Internal Medicine; Visit Provider Radiology Diagnostic Radiology | DX: G93.89 Other specified disorders of brain (principal); R90.82 White matter disease, unspecified | CPT/HCPCS: 70553 ==

== ENCOUNTER 2025-04-15 15:18 | Outpatient (REF) | payer MEDICARE, MEDICAID, SELFPAY ==
--- NOTE | ~2025-04-15 | MR_ITS ---
EXAMINATION: MR BRAIN WITHOUT AND WITH CONTRAST CLINICAL INFORMATION: Head injury. Photophobia. COMPARISON: None available. TECHNIQUE: Multiplanar, multisequence MRI of the brain was obtained before and after the intravenous administration of 7.0 mL gadolinium based contrast (Gadavist) without reported immediate complications.. FINDINGS: Patient's motion artifact. Prominent Virchow-Kendall spaces, bilaterally, the most conspicuous in the left parietal pole with the small hyperintense FLAIR signal. No restricted diffusion or enhancement. Bilateral few scattered punctate deep periventricular white matter hyperintense T2 FLAIR signal. No restricted diffusion. No abnormal enhancement in the intra-axial or the extra-axial compartment of the cranium. There is asymmetric volume loss of the right frontal horn lateral ventricle likely coarctation. No acute intracranial hemorrhage, mass effect, midline shift, hydrocephalus or herniation. Prominence of the CSF surrounding the intraconal segment of the right optic nerve sheath. No signal abnormality or enhancing lesion in the cavernous sinuses. Posterior cranial fossa contents demonstrated no signal abnormality or abnormal enhancement. Craniocervical junction demonstrates a 5 mm descensus of the cerebellar tonsils below foramen magnum. Sellar/suprasellar region demonstrated no signal abnormality or enhancing lesion. There is a superior convex morphology with normal size of the pituitary gland. Flow-void signal within the main cerebral vessels is normal. 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 Patchy white matter T2 FLAIR nonenhancing no restricted diffusion. Demyelination versus small vessel disease. Asymmetric CSF prominence intraconal segment right optic nerve sheath. Recommend dedicated enhanced MRI orbits. Electronically signed by: Lyndon Davis MD 04/18/2025 07:40 AM EDT
--- OUTSIDE RECORDS SUMMARY | 2025-04-15 15:21 | XMS_ITS | Clinical Summary ---
Author Organization [facility] Address [address] [place] [address] Care Team Providers Care Associate Pathologist Name Role Phone Marc Longo MD Primary Care Provider [phone] Allergies Active Allergy Reactions Criticality Noted Date Comments Aspirin 04/20/2007 Rash; NOT ALLERGIC PER PATIENT Rash; NOT ALLERGIC PER PATIENT Azithromycin Swelling 09/18/2015 Carisoprodol 07/21/2007 Codeine 11/17/2007 Gi upset Gi upset Diazepam 04/20/2007 gi upset,vom gi upset,vom Gabapentin 07/29/2014 nausea nausea Morphine 04/20/2007 gi upset,vom gi upset,vom Opium 02/02/2018 Oxycodone-Acetaminophen 04/20/2007 gi upset gi upset Sqp-Dfe-Aglu-Nasulf-Na Asc-C 08/01/2017 Pheniramine 04/20/2007 Prednisone 02/29/2016 nausea [...] (1 of 2) 2021 Influenza Vaccine (#1) 2025 RSV Ped < 20 months Aged Out No longe r eligible based on patient's age to complete this topic Care Teams Associate Pathologist Relationship Specialty Start Date End Date Marc Longo MD PCP - General Internal Medicine 06/24/22
== END 2025-04-15 15:19 | disposition home or self-care (01) ==
LOC: HO.MRI 15:18
PROVIDERS: PCP Internal Medicine; Visit Provider Internal Medicine
DX: S09.90XD Unspecified injury of head, subsequent encounter (principal); R41.0 Disorientation, unspecified
CPT/HCPCS: 70553; A9585

== ENCOUNTER 2025-08-16 18:33 | Inpatient (IN) | payer MEDICARE, MEDICAID, SELFPAY ==
[2025-08-16] VITALS (7 sets, daily range): BP systolic 114–230; BP diastolic 59–200; PULSE 99–108; RESP 20–24; TEMP 36.4–37.3; O2SAT 94–99; BMI 32.2
--- NOTE | ~2025-08-16 | XR_ITS ---
CLINICAL HISTORY: cough 1 view chest x-ray Comparison: CT/REG/SR - CT ABDOMEN PELVIS W IV CON - 08/16/25 22:45 EST CR - XR CHEST 2V - 02/28/25 18:45 EDT Findings: Platelike atelectasis in the mid right lung. No focal infiltrate. No effusion or pneumothorax. Normal size heart. No acute fracture. IMPRESSION: Platelike atelectasis in the mid right lung. This document has been electronically signed by: Yuan Pham MD on 08/16/2025 23:52:44
--- NOTE | ~2025-08-16 | CT_ITS ---
CLINICAL HISTORY: pain, previous colostomy CT abdomen and pelvis with contrast Comparison: CT - CT ABDOMEN PELVIS W IV CON - 08/16/25 22:23 EST Findings: The lung bases are clear. There is absence of the gallbladder and intra and extrahepatic biliary dilatation. Common bile duct measures up to 15 mm. Intrahepatic ducts are mildly dilated. No filling defects seen within the common duct. Pancreatic duct is normal caliber. There are few scattered small hepatic cysts. Spleen, kidneys and pancreas are unremarkable. Within the right adrenal gland there is a 1 cm indeterminate mass measuring 33 Hounsfield units. Within the left adrenal gland there is a 1 cm indeterminate adrenal mass measuring 34 Hounsfield units. There is a left lower quadrant colostomy. The appendix is not visualized. The cecum is in the posterior pelvis. Appendix may be surgically absent. Small bowel loops contain oral contrast and are normal caliber. There is a moderately large amount of formed stool within the colon. Contrast extends to the level of the colostomy bag. No evidence of bowel obstruction. No wall thickening. No ascites. No free air. Uterus and adnexa are normal. Bladder is distended. L2 and L3 laminectomies. No lytic or blastic bone lesions. IMPRESSION: 1. Intra and extrahepatic biliary ductal dilatation is indeterminate. This may represent reservoir effect related to prior cholecystectomy. 2. Moderately large amount of formed stool within the colon. No evidence of bowel obstruction. This document has been electronically signed by: Yuan Pham MD on 08/16/2025 23:51:53
--- NOTE | ~2025-08-16 | MR_ITS ---
EXAMINATION: MR MRCP WITHOUT CONTRAST CLINICAL INFORMATION: Dilated biliary system. Abdominal pain. COMPARISON: Correlated to CT dated August 16, 2025. TECHNIQUE: MR MRCP is performed without gadolinium contrast. Axial and coronal T2 haste sequences. Axial and coronal T2 fat-sat haste sequences. Coronal oblique T2 fat-sat single slice. MRCP radial T2 fat-sat. Axial in and out of 3-D phase sequences. 3-D space MRCP triggered. FINDINGS: Intra and extrahepatic biliary ductal dilatation. The common bile duct maximum dimension is 15 mm. There is an abrupt cut off at the junction with the second portion of the duodenum. No intraluminal signal abnormality or filling defects. The main pancreatic duct measures 2 mm. Ancillary findings: Liver measures 15 cm. There are few scattered, thin septated fluid signal characteristic lesions throughout the parenchyma, the largest measures 13 mm. The main portal vein, hepatic veins and intrahepatic portion of the IVC demonstrated normal flow voids signal. Status post cholecystectomy. No peripancreatic fluid collections. No gross solid or cystic lesion in the pancreas. Spleen measures 8 cm. No gross solid or cystic lesion. There are less than 15 mm isointense T1 and T2 nodular lesions in the adrenal glands with drop-off signal. Subcentimeter cystic lesions in the left kidney. No hydronephrosis in either kidney. No ascites. There is an ostomy in the left hemiabdomen. No intestinal obstruction pattern. 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 Recommend direct inspection. No choledocholithiasis. Lipid rich adenoma, both adrenal glands.. Electronically signed by: Lyndon Davis MD 08/17/2025 02:08 PM RANI
--- NOTE | 2025-08-16 19:22 | ECG_ITS ---
Test Reason : pain Blood Pressure : */* mmHG Vent. Rate : 103 BPM Atrial Rate : 103 BPM P-R Int : 122 ms QRS Dur : 86 ms QT Int : 522 ms P-R-T Axes : 27 84 45 degrees QTcB Int : 683 ms Sinus tachycardia Prolonged QT Abnormal ECG When compared with ECG of 28-Feb-2025 18:20, ST now depressed in Anterolateral leads QT has lengthened Referred By: Sebastian Gallagher Electronically Signed By: SALLY GONZALEZ MD
--- OUTSIDE RECORDS SUMMARY | 2025-08-16 19:31 | XMS_ITS | Encounter Summary ---
Author Organization [facility] Address [address] [place] [id number] Phone Care Team Providers Care Family Preservation Officer Name Role Phone Shaheed Henley MD Primary Care Provider Unavail able Encounter Details Date Type Department Care Team (Late st Contact Info) Description 03/06/[address] [facility] [address] [place] [address] Social History Tobacco Use Types Packs/Day Years Used Date Smoking Tobacco: Every Day Smokeless Tobacco: Never Comments Unknown Sex and Gender Information Value Date Recorded Sex Assigned at Female 03/06/2025 6:52 PM EDT Legal Sex Female 7:39 PM EST Gender Identity Female 03/06/2025 6:51 PM EDT Sexual Orientation Choose not to disclose 2024 6:51 PM EDT documented as of this encounter Plan of Treatment Not on file documented as of this encounter Visit Diagnoses Not on filedocumented in this encounter Care Teams Family Preservation Officer Relationship Specialty Start Date End Date Shaheed Henley MD PCP - General Endocrinology 02/05/18 documented as of this encounter Additional Source Comments The information contained in this document represents components of the legal health record. It is not the complete legal health record.[facility]
--- OUTSIDE RECORDS SUMMARY | 2025-08-16 19:31 | XMS_ITS | Clinical Summary ---
Author Organization [facility] Address [address] [place] [id number] Phone Care Team Providers Care Mounted Police Name Role Phone Shaheed Henley MD Primary Care Provider Unavail able Allergies Active Allergy Reactions Criticality Noted Date Comments Aspirin 04/20/2007 Rash; NOT ALLERGIC PER PATIENT Azithromycin Swelling 09/18/2015 Carisoprodol 07/21/2007 Codeine 11/17/2007 Gi upset Diazepam 04/20/2007 gi upset,vom Gabapentin 07/29/2014 nausea Morphine Sulfate 04/20/2007 gi upset,vom Other 04/20/2007 animal Oxycodone-Acetaminophen 04/20/2007 gi upset Pheniramine 04/20/2007 Prednisone 02/29/2016 nausea Propoxyphene Unknown 12/10/2007 Cannot take d/t to depression meds Medications sertraline 150 mg Cap Take 150 mg by mouth daily. Active risperiDONE (RISPERDAL) 0.5 MG tablet Take 0.5 mg by mouth. Active docusate sodium (COLACE) 100 MG capsule Take 100 mg by mouth. 7 Active SENNA LEAVES MISC by Miscellaneous route. Active albuterol 90 mcg/actuation inhaler Inhale 2 puffs into the lungs every 4 (four) hours as needed for wheezing or shortness of breath/dyspnea. 5 Active atorvastatin (LIPITOR) 10 MG tablet Take 10 mg by mouth daily. Active cloNIDine HCL (CATAPRES) 0.1 MG tablet Take 0.1 mg by mouth 3 (three) times a day. 5 Active dicyclomine (BENTYL) 10 MG capsule Take 10 mg by mouth 4 (four) times a day before meals and nightly. 4 Active famotidine (PEPCID) 20 MG tablet Take 20 mg by mouth 2 (two) times a day. 5 Active folic acid (FOLVITE) 1 MG tablet Take 1 tablet by mouth daily. 4 Active hydrOXYzine (ATARAX) 25 MG tablet Take 50 mg by mouth 2 (two) times a day as needed for anxiety. 5 Active metoprolol succinate (TOPROL-XL) 25 MG 24 hr tablet Take 25 mg by mouth daily. Active omeprazole (PRILOSEC) 40 MG capsule Take 40 mg by mouth 2 (two) times a day. Active busPIRone (BUSPAR) 15 MG tablet Take 15 mg by mouth 3 (three) times a day. 5 Active ferrous sulfate 325 mg (65 mg [place] iron) tablet Take 325 mg by mouth daily with breakfast. 5 Active lactase (LACTAID) 3,000 unit tablet Take 3,000 Units by mouth 3 (three) times a day with meals. Active NYAMYC powder Apply 1 Application topically 2 (two) times a day. 5 Active polyethylene glycol (MIRALAX) 17 gram packet Take 17 g by mouth daily. 5 Active polyethylene glycol (MIRALAX) 17 gram packet Take 17 g by mouth daily as needed for mild constipation. 5 Active senna (SENOKOT) 8.6 mg tablet Take 1 tablet by mouth 2 (two) times a day. 5 Active Active Problems Problem Noted Date Diagnosed Date Colitis 02/13/2025 Family History Medical History Relation Comments Colon cancer Neg Hx Social History Tobacco Use Types Packs/Day Years Used Date Smoking Tobacco: Every Day Smokeless Tobacco: Never Education Answer Date Recorded Are you interested in more education? Not on janny e 01/30/2023 Are you concerned about learning? Not on file 01/30/2023 No 01/30/2023 No 01/30/2023 Food Answer Date Recorded Within the past 6 months we worried whether our food would run out before we got money to buy more. Never True 02/12/2025 Within the past 6 months the food we bought just didn't last and we didn't have enough money to get more. Never True Residential Stability Answer Date Recor ded What is your housing situation today? I have trey gallego 02/12/2025 How many times have you move d in the past 12 months? Zero (I did not move) 02/12/2025 Paying for Meds Answer Date Recorded Do you have trouble paying for medicines? No 02/12/2025 Paying Utility Bills Answer Date Record ed Do you have trouble paying your heating or elect ricity bill? No 02/12/2025 Transportation Answer Date Recorded Has the lack of transportati on kept you from medical appointments or from getting medications? No 02/12/2025 Digital Access Answer Date Recorded Yes 02/12/2025 No 02/12/2025 Do you have reliable internet access at home? No 02/12/2025 Do you have a device (e.g., phone, tablet, computer) with a working camera? No 02/12/2025 Intimate Partner Violence Answer Date R ecorded Are you denied basic needs s uch as food, clothing, or medical care? No 02/12/2025 In the past 12 months have y ou been in a relationship with a person who hurts, threatens, or tries to control you? No 02/12/2025 Are you denied basic needs s uch as food, clothing, or medical care? No 02/12/2025 In the past 12 months have y ou been in a relationship with a person who hurts, threatens, or tries to control you? No 02/12/2025 Comments Unknown Sex and Gender Information Value Date Recorded Sex Assigned at Female 03/06/2025 6:52 PM EDT Legal Sex Female 7:39 PM EST Gender Identity Female 03/06/2025 6:51 PM EDT Sexual Orientation Choose not to disclose 2024 6:51 PM EDT Last Filed Vital Signs Vital Sign Reading Time Taken Comments Blood Pressure 150/67 04/07/2025 7:59 AM EDT Pulse 80 04/07/2025 7:59 AM EDT Temperature 36.6 C (97.9 F) 02/18/2025 1:26 PM EDT Respiratory Rate 18 02/18/2025 1:26 PM EDT Oxygen Saturation 99% 04/07/2025 7:59 AM EDT Inhaled Oxygen Concentration - - Weight 65.3 kg (144 lb) 02/12/2025 9:43 PM EDT Height 149.9 cm (4' 11.02 ) 02/15/2025 8:00 AM E DT Body Mass Index 29.07 02/12/2025 9:43 PM EDT Plan of Treatment Health Maintenance Due Date Last Done Comments SMOKING Hx and SMOKELESS TOB ACCO SCREENING 1984 HEPATITIS C SCREENING 1989 HIV ONE-TIME SCREENING (18-6 5 YEARS) 1989 PNEUMOCOCCAL VACCINES (50+ y ears) (1 of 2 - PCV) 1990 PAP SMEAR 1992 MAMMOGRAM 2011 COLOGUARD 2016 COLONOSCOPY 2016 COLORECTAL CANCER SCREENING 2016 FIT TEST 2016 FOBT 2016 SIGMOIDOSCOPY 2016 VIRTUAL COLONOSCOPY 2016 Adult Td,Tdap Booster 06/07/2018 06/07/2008 ZOSTER VACCINES (1 of 2) 2021 INFLUENZA VACCINE (#1) 2025 COVID-19 VACCINE ( - 2024-2 6 season) 2025 DEPRESSION SCREENING 04/06/2026 04/06/2025 SCREENING FOR DIABETES 02/19/2028 02/18/2025 LIPID PANEL 11/26/2028 11/26/2023 RSV VACCINE (1 - 1-dose 75+ series) 2046 HEPATITIS A VACCINES Aged Out No long er eligible based on patient's age to complete this topic HIB VACCINES Aged Out No longer eligi ble based on patient's age to complete this topic IPV VACCINES Aged Out No longer eligi ble based on patient's age to complete this topic MENINGOCOCCAL VACCINES (ACWY) Aged Out No longer eligible based on patient's age to complete this topic MENINGOCOCCAL VACCINES (B) Aged Out N o longer eligible based on patient's age to complete this topic Medical Devices Not on file Insurance MEDICARE PART A & B B MEDICARE PART A & B B MEDICARE PART A & B MEDICARE PART A & [place] MEDICARE PART A & [place] [id number] MEDICARE PART A & B MEDICARE PART A & B Member Subscriber Plan / Payer (Ef fective 1996-) Name:Claire Ramon Member ID:[id number] Relation to Subscriber:Self Name:Claire Ramon Subscriber ID:[id number] Payer ID:[id number] Group ID:Not on file Type:Medicare Address: [place] [address] [place] [address] MEDICARE PART A & B MEDICARE PART A & B B Advance Directives For more information, please contact: [phone] (9AM - 5PM [facility], Friday-Friday) Documents on File Type Date Recorded Patient Space Engineer Expl anation Healthcare Proxy 02/13/2025 9:17 AM * Full Code (Latest Code Status on File) Date Activated Date Inactivated Comments 02/13/2025 5:06 AM Question Answer Comments Code Status Confirmed With: Patient Code Status Communicated To: Inpatient Attending Care Teams Mounted Police Relationship Specialty Start Date End Date Shaheed Henley MD PCP - General Endocrinology 02/05/18 Additional Source Comments The information contained in this document represents components of the legal health record. It is not the complete legal health record.[facility]
--- OUTSIDE RECORDS SUMMARY | 2025-08-16 19:31 | XMS_ITS | Encounter Summary ---
Author Organization [facility] Address [address] [place] [address] Phone Care Team Providers Care Director Of Operations For Therapy Name Role Phone Shaheed Henley MD Primary Care Provider Unavail able Encounter Details Date Type Department Care Team (Late st Contact Info) Description 03/06/2018 Procedure Pass [facility] [address] [place] [address] Social History Tobacco Use Types Packs/Day Years [...] on filedocumented in this encounter Care Teams Director Of Operations For Therapy Relationship Specialty Start Date End Date Shaheed Henley MD PCP - General Endocrinology 02/05/18 documented as of this encounter Additional Source Comments The information contained in this document represents components of the legal health record. It is not the complete legal health record.[facility]
--- OUTSIDE RECORDS SUMMARY | 2025-08-16 19:31 | XMS_ITS | Clinical Summary ---
Author Organization [address] Address [address] [place] [phone] Phone Care Team Providers Care Measurement Advisor Name Role Phone Marc Longo MD Primary Care Provider [phone] Allergies Active Allergy Reactions Criticality Noted Date Comments Aspirin 04/20/2007 Rash; NOT ALLERGIC PER PATIENT Azithromycin Swelling 09/18/2015 Carisoprodol 07/21/2007 Codeine 11/17/2007 Gi upset Diazepam 04/20/2007 Valium gi upset,vom Gabapentin 07/29/2014 nausea Horse Dander 04/20/2007 Horse Serum animal Morphine Sulfate 04/20/2007 gi upset,vom Opium Tincture 02/02/2018 Oxycodone-Acetaminophen 04/20/2007 gi upset [id number] 08/01/2017 Moviprep [Uecfymwit-n-xqv-peg-na Rrurei-ogsk-xtho] Prednisone 02/29/2016 nausea Propoxyphene Other 12/10/2007 Cannot take d/t to depression meds Propoxyphene N-Acetaminophen 06/25/2010 Medications risperiDONE (RisperDAL) 0.5 mg tablet Take 1 Tab by mouth at bedtime. 9 Active sertraline (ZOLOFT) 100 mg tablet Take 1.5 tablets (150 mg total) by mouth 1 (one) time each day. 9 Active traZODone (DESYREL) 100 mg tablet Take 125 mg by mouth at bedtime. 2 Active vitamin B complex (B COMPLEX-VITAMIN B12 ORAL) Take by mouth 1 (one) time each day. Active hydrOXYzine HCL (ATARAX) 25 mg tablet Take 2 tablets (50 mg total) by mouth 3 (three) times a day if needed. 5 Active atorvastatin (LIPITOR) 10 mg tablet Take 1 tablet (10 mg total) by mouth at bedtime. 90 tablet 1 5 Active metoprolol succinate (TOPROL-XL) 25 mg 24 hr tablet Take 1 tablet (25 mg total) by mouth 1 (one) time each day. Do not crush or chew. 90 tablet 1 5 Active folic acid (FOLVITE) 1 mg tablet Take 1 tablet (1,000 mcg total) by mouth 1 (one) time each day. 90 tablet 1 5 Active senna (SENOKOT) 8.6 mg tablet Take 1 tablet (8.6 mg total) by mouth 2 (two) times a day. 180 tablet 1 5 Active hydroCHLOROthia zide (HYDRODIURIL) 25 mg tablet Take 1 tablet (25 mg total) by mouth 1 (one) time each day. 30 each 5 5 08/30/20 25 Active cyanocobalamin 2,000 mcg ER tablet Take 1 tablet (2,000 mcg total) by mouth 1 (one) time each day. 90 tablet 1 5 03/24/20 26 Active nystatin (MYCOSTATIN) 100,000 unit/gram powder Apply thin layer to affected area twice daily 30 g 5 Active albuterol HFA (PROAIR HFA ; PROVENTIL HFA ; VENTOLIN HFA) 90 mcg/actuation inhaler Inhale 2 puffs by mouth every 4 (four) hours if needed (cough, wheezing, shortness of breath). 8.5 g 5 Active omeprazole (PriLOSEC) [address] capsule Take 1 capsule (40 mg total) by mouth 2 (two) times a day. Do not crush or chew. 90 capsule 1 5 Active ferrous sulfate 325 mg (65 mg elemental iron) tablet Take 1 tablet (325 mg total) by mouth 1 (one) time each day. 90 tablet 1 5 Active dicyclomine (BENTYL) 10 mg capsule TAKE 1 CAPSULE BY MOUTH two (2) times a day WITH MEALS AND AT BEDTIME 180 capsule 1 5 Active Active Problems Problem Noted Date Diagnosed Date Constipation, chronic 04/16/2024 Chronic low back pain 02/07/2022 CKD (chronic kidney disease) stage 3, GFR 30-59 ml/min ([facility] V24, [facility] V28) 11/15/2020 Marijuana abuse 11/14/2020 Thrombocytopenia ([facility] V24) 10/25/2019 Insomnia 07/16/2017 Resolved Problems Problem Noted Date Diagnosed Date Resolved Date Diarrhea 01/14/2025 01/19/2025 Rectal prolapse 04/16/2024 01/19/2025 Encounters Date Type Department Care Team Description 06/21/2025 1:30 PM EDT Office Visit [facility] Hematology Oncology [address] [place] [phone] Heide Covarrubias MD Thrombocytopenia ([facility] V24) (Primary Dx) 06/21/2025 10:06 AM EDT - 06/21/2025 11:59 PM EDT Hospital Encounter CT Scan - [address] [phone] Right lower quadrant abdominal pain; S/P colostomy ([facility] V24, [facility] V28); Rectal prolapse Discharge Disposition: Home or Self Care 06/20/2025 2:30 PM EDT Office Visit Adult Medicine [address] [phone] Marc Longo MD Right lower quadrant abdominal pain (Primary Dx); S/P colostomy ([facility] V24, [facility] V28); Rectal prolapse; Marijuana abuse; Developmental delay; Mental health impairment from Last 3 Months Immunizations Immunization Administration Dates Next Due Td Tetanus diptheria (Tdvax) 7yo and older 11/19 Tdap Tetanus diptheria acell ular pertussis (Boostrix; Adacel) 7yo and older 06/07/2008 Surgical History Surgery Date Site/Laterality Comments BACK SURGERY 1996 PROCEDURE: HISTORICAL BACK SURGERY; COMMENT: multiple back procedures ESOPHAGOGASTRODUODENOSCOPY 08/01/2008 PROCEDURE: DC EGD TRANSORAL BIOPSY SINGLE/MULTIPLE; COMMENT: duodenal bx: wnl COLONOSCOPY W/ BIOPSIES 08/01/2008 PROCEDURE: DC COLONOSCOPY W/BIOPSY SINGLE/MULTIPLE; COMMENT: colonic bx: wnl TUBAL LIGATION 2002 PROCEDURE: HISTORICAL TUBAL LIGATION ENDOMETRIAL ABLATION 05/25/2010 PROCEDURE: DC ENDOMETRIAL ABLTJ THERMAL W/O HYSTEROSCOPIC GUID; COMMENT: [...] Safety Answer Date Record ed Physical Abuse Unrecognized value 01/14/2025 Verbal Abuse Unrecognized value 01/14/2025 Comments No Sex and Gender Information Value Date Recorded Sex Assigned at Female 01/12/2025 8:36 AM EDT Legal Sex Female 1:54 AM EST Gender Identity Female 01/12/2025 8:36 AM EDT Sexual Orientation Straight 01/12/2025 8: 36 AM EDT Obstetrics History Last Filed Vital Signs Vital Sign Reading Time Taken Comments Blood Pressure 121/53 06/21/2025 1:31 PM EDT Pulse 78 06/21/2025 1:31 PM EDT Temperature 37 C (98.6 F) 06/21/2025 1:31 PM EDT Respiratory Rate 16 06/20/2025 1:34 PM EDT Oxygen Saturation 96% 06/21/2025 1:31 PM EDT Inhaled Oxygen Concentration - - Weight 68.5 kg (151 lb) 06/21/2025 1:31 PM EDT Height 149.9 cm (4' 11 ) 06/20/2025 1:34 PM EDT Body Mass Index 30.5 06/20/2025 1:34 PM EDT Plan of Treatment Upcoming Encounters Date Type Department Care Team (Late st Contact Info) Description 11/30/2025 9:45 AM EST Office Visit Adult Medicine [address] [phone] Marc Longo MD [address] [place] [address] [place] [phone] 06/21/2026 1:15 PM EDT Office Visit [facility] Hematology Oncology [address] [place] [phone] Heide Covarrubias MD [address] [place] [address] Health Maintenance Due Date Last Done Comments COVID-19 Vaccine (#1) 1976 Hepatitis A Vaccines (1 of 2 - Risk 2-dose series) 1990 Hepatitis B Vaccines (1 of 3 - 19+ 3-dose series) 1990 Pneumococcal Vaccine: 50+ Years (1 of 2 - PCV) 1990 Zoster Vaccines (1 of 2) 1990 Cervical Cancer Screening: Pap Smear 12/28/2018 12/29/2015, 12/29/2015 Medicare Annual Wellness Visit 09/14/2022 Social Influencers of Health Screening 09/14/2022 Depression Screening 10/06/2024 Influenza Vaccine (#1) 2025 Breast Cancer Screening 12/22/2025 12/23/19 24, 09/04/2020, 08/30/2019, Additional history exists Hypertension/CHF/CAD Annual BMP Blood Test 06/20/2026 06/20/2025, 02/11/2025, 01/24/2025, Additional history exists Cholesterol Screening (Lipid Panel) 11/26/2028 11/26/2023 DTaP,Tdap,and Td Vaccines (3 - Td or Tdap) 11/19/2033 11/19/2023, 06/07/2008 Colorectal Cancer Screening: Colonoscopy 04/01/2034 04/01/2024 RSV Immunization Adult Patients (1 - 1-dose 75+ series) 2046 HIV Screening Completed 06/26/2009 Hepatitis C Screening [...] Procedure Name Priority Date/Time Associated Diagnosis Comments CT ABDOMEN PELVIS WO CONTRAST Routine 06/21/2025 10:20 AM EDT Right lower quadrant abdominal pain S/P colostomy (CMS/HCC V24, CMS/HCC V28) Rectal prolapse ..MISCELLANEOUS REFERENCE LAB TEST 06/21/2025 CBC WITH AUTO DIFFERENTIAL Routine 06/20/2025 3:30 PM EDT Right lower quadrant abdominal pain CBC AND DIFFERENTIAL Routine 06/20/2025 3:30 PM EDT Right lower quadrant abdominal pain COMPREHENSIVE METABOLIC PANEL Routine 06/20/2025 3:30 PM EDT Right lower quadrant abdominal pain HEPATITIS PANEL, ACUTE WITH REFLEX TO CONFIRMATION Add-On 01/14/2025 8:38 AM EDT COLONOSCOPY Routine 04/01/2024 SCREENING MAMMOGRAPHY BI 2-VIEW BREAST INC CAD Routine 12/23/2023 1:58 PM EDT Encounter for screening mammogram for malignant neoplasm of breast LIPID PANEL Routine 11/26/2023 PAP SMEAR Routine 12/29/2015 HIV SCREENING Routine 06/26/2009 from Last 3 Months or Most Recently Relevant to Health Maintenance Results * CT Abdomen Pelvis wo Contrast (06/21/2025 10:20 AM EDT) Anatomical Region Laterality Modality Body Computed Tomogra phy 06/21/2025 10:4 9 AM EDT Impressions 06/21/2025 1:29 PM EDT 1. No acute intra-abdominal or pelvic pathology. 2. Postoperative changes of the rectum. 3. Fat-containing parastomal hernia within the left lower quadrant. 4. Stable intra and extrahepatic biliary dilatation. -------- FINAL REPORT -------- Dictated By: Lakhwinder So Dictated Date: 06/21/2025 10:49 ET Assigned Physician: Lakhwinder So Reviewed and Electronically Signed By: Lakhwinder So Signed Date: 06/21/2025 13:29 ET Workstation ID: [id number] Transcribed By: Self Edit Transcribed Date: 06/21/2025 12:10 ET Narrative 06/21/2025 1:[address] ABDOMEN AND PELVIS WITHOUT INTRAVENOUS CONTRAST HISTORY: epigastric to right lower pain patient with chronic abdominal pain s/p colectomy with ostomy for rectal prolapse. TECHNIQUE: Multiple contiguous axial images of the abdomen and pelvis were obtained without intravenous contrast. Images were reformatted to coronal and sagittal planes. Radiation dose is 14.77mGy COMPARISON: CT abdomen and pelvis from 01/12/2025 FINDINGS: Lungs: Mild bibasilar atelectasis. Mediastinum: The cardiac apex is normal in size, trace pericardial effusion. Upper GI: There is a 1.0 x 0.8 cm right hepatic lobe cyst. There are too small to characterize hypodensities within the liver. The patient is status post cholecystectomy. The common bile duct measures 1.6 cm. Trace intrahepatic biliary dilatation. The pancreas and spleen are within normal limits. : There is a 1.5 x 0.9 cm lipid rich right adrenal nodule. The left adrenal gland demonstrates a smaller lipid rich left adrenal nodule measuring 1.1 cm. The kidneys are without hydronephrosis. The ureters take a nonobstructed course to a well-distended urinary bladder. Lower GI: Patient is status post partial colectomy. Postoperative changes in the region of the rectum. Left lower quadrant ostomy with a parastomal hernia. The defect measures 1.0 cm. No free air or free fluid. Subcentimeter lymph nodes within the abdomen and pelvis. Vascular: Mild atherosclerotic calcification of the abdominal aorta MSK: Soft tissues are normal. The osseous structures are intact. Procedure Note Lakhwinder So MD - 06/21/2025 CT ABDOMEN AND PELVIS WITHOUT INTRAVENOUS CONTRAST HISTORY: epigastric to right lower pain patient with chronic abdominalpain s/p colectomy with ostomy for rectal prolapse. TECHNIQUE: Multiple contiguous axial images of the abdomen and pelviswere obtained without intravenous contrast. Images were reformatted tocoronal and sagittal planes. Radiation dose is 14.77mGy COMPARISON: CT abdomen and pelvis from 01/12/2025 FINDINGS: Lungs: Mild bibasilar atelectasis. Mediastinum: The cardiac apex is normal in size, trace pericardial effusion. Upper GI: There is a 1.0 x 0.8 cm right hepatic lobe cyst. There are too small tocharacterize hypodensities within the liver. The patient is status postcholecystectomy. The common bile duct measures 1.6 cm. Trace intrahepaticbiliary dilatation. The pancreas and spleen are within normal limits. : There is a 1.5 x 0.9 cm lipid rich right adrenal nodule. The left adrenalgland demonstrates a smaller lipid rich left adrenal nodule measuring 1.1cm. The kidneys are without hydronephrosis. The ureters take anonobstructed course to a well-distended urinary bladder. Lower GI: Patient is status post partial colectomy. Postoperative changes in theregion of the rectum. Left lower quadrant ostomy with a parastomal hernia.The defect measures 1.0 cm. No free air or free fluid. Subcentimeter lymphnodes within the abdomen and pelvis. Vascular: Mild atherosclerotic calcification of the abdominal aorta MSK: Soft tissues are normal. The osseous structures are intact. IMPRESSION: 1. No acute intra-abdominal or pelvic pathology. 2. Postoperative changes of the rectum. 3. Fat-containing parastomal hernia within the left lower quadrant. 4. Stable intra and extrahepatic biliary dilatation. -------- FINAL REPORT -------- Dictated By: Lakhwinder So Dictated Date: 06/21/2025 10:49 ET Assigned Physician: Lakhwinder So Reviewed and Electronically Signed By: Lakhwinder So Signed Date: 06/21/2025 13:29 ET Workstation ID: [id number] Transcribed By: Self Edit Transcribed Date: 06/21/2025 12:10 ET Marc Longo MD IMG CT PROCEDURES Final Result * Miscellaneous reference lab test (06/21/2025) us Provider Onbase LAB BLOOD ORDERABLES Final Re sult * (ABNORMAL) CBC auto differential (06/20/2025 3:30 PM EDT) [facility] WBC 9.3 4.8 - 10.8 K/mcL LAB HEMETOLOGY METHOD 06/20/2025 6:34 PM EDT [facility] RBC 5.00(H) 3.80 - 4.80 M/mcL LAB HEMETOLOGY METHOD 06/20/2025 6:34 PM EDT [facility] Hemoglobin 16.2(H) 11.5 - 16.0 g/dL LAB HEMETOLOGY METHOD 06/20/2025 6:34 PM EDT [facility] Hematocrit 46.5 35.0 - 47.0 % LAB [facility]OLOGY [facility]20[facility] MCV 93.6 79.0 - 98.0 FL LAB HEMETOLOGY METHOD 06/20/2025 6:34 PM EDT [facility] MCH 32.6(H) 27.0 - 32.0 pcg LAB HEMETOLOGY METHOD 06/20/2025 6:34 PM EDT [facility] MCHC 34.8 32.0 - 37.0 g/dL LAB HEMETOLOGY METHOD 06/20[facility]2025 [facility] RDW 14.1 11.0 - 15.0 % LAB HEMETOLOGY METHOD 06/20/2025 6:34 PM EDT [facility] Platelets 88(L) 130 - 400 K/mcL LAB HEMETOLOGY METHOD 06/20/2025 6:34 PM EDT [facility] MPV 12.9(H) 7.0 - 11.0 FL LAB HEMETOLOGY METHOD 06/20[facility]2025 6[facility] NRBC 0.0 <1.0 % LAB HEMETOLOGY METHOD 06/20/2025 6:34 PM EDT [facility] NRBC Absolute 0.00 <0.10 K/mcL LAB HEMETOLOGY METHOD [facility]/20[facility]2025 [facility] Neutrophils Relative 71.4 % LAB HEMETOLOGY METHOD 06/20/2025 6:34 PM [facility] Lymphocytes Relative 20.4 % LAB HEMETOLOGY METHOD [facility]/20[facility]25 6[facility] Monocytes Relative 7.0 % LAB HEMETOLOGY METHOD 06/20/2025 6:34 PM [facility] Eosinophils Relative 0.4 % LAB HEMETOLOGY METHOD 06/20/2025 6:34 PM [facility] Basophils Relative 0.3 % LAB HEMETOLOGY METHOD 06/20/2025 6:34 PM [facility] Immature Granulocytes Relative 0.5 % LAB HEMETOLOGY METHOD 06/20/2025 6:34 PM EDT [facility] Neutrophils Absolute 6.61 1.50 - 7.00 K/mcL LAB HEMETOLOGY METHOD 06/20/2025 6:34 PM EDT [facility] Lymphocytes Absolute 1.89 1.00 - 5.00 K/mcL LAB HEMETOLOGY METHOD 06/20[facility]2025 [facility] Monocytes Absolute 0.65 0.20 - 1.00 K/mcL LAB HEMETOLOGY METHOD 06/20/2025 6:34 PM EDT [facility] Eosinophils Absolute 0.04 0.00 - 0.50 K/[facility] LAB HEMETOLOGY METHOD 06/20/2025 6:34 PM EDT [facility] Basophils Absolute 0.03 0.00 - 0.20 K/[facility] LAB HEMETOLOGY METHOD 06/20/2025 6:34 PM EDT [facility] Immature Granulocytes Absolute 0.05(H) 0.00 - 0.03 K/[facility] LAB HEMETOLOGY METHOD 06/20/2025 6:34 PM EDT [facility] Blood Venous blood specimen / Unknown Venipuncture / Unknown 06/20/2025 3:30 PM EDT 06/20/2025 3:30 PM EDT us Marc Longo MD LAB BLOOD ORDERABLES Final Resu lt [facility] [address] [place] [address], * (ABNORMAL) Comprehensive metabolic panel (06/20/2025 3:30 PM EDT) Sodium 137 133 - 145 mmol/L LAB CHEMISTRY METHOD 06/20/2025 6:33 PM [facility] Potassium 3.3(L) 3.5 - 5.5 mmol/L LAB CHEMISTRY METHOD 06/20/2025 6:33 PM [facility] Chloride 102 96 - 110 mmol/L LAB CHEMISTRY METHOD 06/20/2025 6:33 PM T [facility] CO2 29 21 - 32 mmol/L LAB CHEMISTRY METHOD 06/20/2025 6:33 PM [facility] Anion Gap 6 3 - 11 LAB CHEMISTRY METHOD 06/20/2025 6:33 PM [facility] Glucose 126(H) 70 - 100 mg/dL LAB CHEMISTRY METHOD 06/20/2025 6:33 PM [facility] BUN 21 5 - 25 mg/dL LAB CHEMISTRY METHOD 06/20/2025 6:33 PM [facility] Creatinine 1.08 0.50 - 1.10 mg/dL LAB CHEMISTRY METHOD 06/20/2025 6:33 PM [facility] eGFR 61 >=60 mL/min/1. 73m2 LAB CHEMISTRY METHOD 06/20/2025 6:33 PM [facility] Comment:Calculation based on the Chronic Kidney Disease Epidemiology Collaboration (CKD-EPI) equation refit without adjustment for race. BUN/Creatinine Ratio 19.4 LAB CHEMISTRY METHOD 06/20/2025 6:33 PM [facility] Calcium 9.8 8.5 - 10.5 mg/dL LAB CHEMISTRY METHOD 06/20/2025 6:33 PM [facility] AST (SGOT) 16 10 - 42 unit/L LAB CHEMISTRY METHOD 06/20/2025 6:33 PM [facility] ALT (SGPT) 17 10 - 60 unit/L LAB CHEMISTRY METHOD 06/20/2025 6:33 PM [facility] Alkaline Phosphatase 96 42 - 121 unit/L LAB CHEMISTRY METHOD 06/20/2025 6:33 PM [facility] Total Protein 7.6 6.0 - 8.0 g/dL LAB CHEMISTRY METHOD 06/20/2025 6:33 PM [facility] Albumin 4.3 3.2 - 5.0 g/dL LAB CHEMISTRY METHOD 06/20/2025 6:33 PM [facility] Total Bilirubin 0.5 0.0 - 1.4 mg/dL LAB CHEMISTRY METHOD 06/20/2025 6:33 PM [facility] Blood Venous blood specimen / Unknown Venipuncture / Unknown 06/20/2025 3:30 PM EDT 06/20/2025 3:30 PM EDT Marc Longo MD LAB BLOOD ORDERABLES Final Resu lt Performing Organization Address City/[facility]/ZIP Co de Phone Number [facility] [address] [place] [address], [place] [phone] * Hepatitis panel, acute with reflex to confirmation (01/14/2025 8:38 AM EDT) Pathologist [facility] Hepatitis B Surface Ag Negative Negative LAB CHEMISTRY METHOD 01/14/2025 11:33 AM EDT [facility] Hepatitis A Antibody IgM Negative Negative LAB CHEMISTRY METHOD 01/14/2025 11:33 AM EDT [facility] Hep B Core IgM Negative Negative LAB CHEMISTRY METHOD 01/14/2025 11:33 AM EDT [facility] Hepatitis C Antibody Negative Negative LAB CHEMISTRY METHOD 01/14/2025 11:33 AM EDT [facility] Blood Venous blood specimen / Unknown Venipuncture / Unknown 01/14/2025 8:38 AM EDT 01/14/2025 9:02 AM EDT Mala GOMEZ LAB BLOOD ORDERABLES Final Result Performing Organization Address [facility]/ZIP Co de Phone Number [facility] [address] [place] [address], [place] [phone] * Colonoscopy (04/01/2024) [facility] Colonoscopy no interpretation , abstracted Anatomical Region [...] are composed of fatty and fibroglandular tissue. No suspicious mass, architectural distortion or suspicious calcifications [...] Breast cancer risk category High (>20%) Result [facility] Marc Longo MD IMG XR PROCEDURES Final Result * (ABNORMAL) Lipid panel (11/26/2023) [facility] LDL/HDL Ratio 4 0 - 4 Triglycerides 139 0 - 150 mg/dL Cholesterol 206(A) 0 - 200 mg/dL HDL 58 >=40 mg/dL LDL Cholesterol 121(A) 0 - 100 mg/dL Blood Venous blood specimen / Unknown Result [facility] Provider LAB BLOOD ORDERABLES Maeve l Result * Pap Smear (12/29/2015) [facility] Pap smear normal, abstracted Result [facility] Shiv [facility] [employer] Final Result * HIV Screening (06/26/2009) [facility] HIV Screening abstracted Result [facility]iv [facility] Final Result from Last 3 Months or Most Recently Relevant to Health Maintenance Insurance [place]ICARE [place] Advance Directives Documents on File Type Date Recorded Patient Enrollment Services Vice President Expl anation Advance Directives and Living Will 01/15/2025 1:22 PM Isadora Carreraak PROXY Advance Directives and Living Will 01/14/2025 [...] Agents on File Name Relationship Healthcare Agent Relationshi p Communication Isadora Ramon Mother Health Care Agent Care Teams Measurement Advisor Relationship Specialty Start Date End Date Marc Longo MD [address] [place] [address] PCP - General Internal Medicine 07/14/15
--- OUTSIDE RECORDS SUMMARY | 2025-08-16 19:31 | XMS_ITS | Encounter Summary ---
Author Organization [facility] Address [address] [place] [phone] Phone Care Team Providers Care Nca Certified Concierge Name Role Phone Shaheed Henley MD Primary Care Provider Unavail able Encounter Details Date Type Department Care Team (Late st Contact Info) Description 02/13/2025 Procedure Pass [facility] Radiology [address] [place] [address] Social History Tobacco Use Types Packs/Day Years [...] your housing situation today? I have trey sing 02/12/2025 How many times have you move [...] on filedocumented in this encounter Care Teams Nca Certified Concierge Relationship Specialty Start Date End Date Shaheed Henley MD PCP - General Endocrinology 02/05/18 documented as of this encounter Additional Source Comments The information contained in this document represents components of the legal health record. It is not the complete legal health record.[facility]
--- OUTSIDE RECORDS SUMMARY | 2025-08-16 19:31 | XMS_ITS | Encounter Summary ---
Author Organization [facility] Address [address] [place] [address] Phone Care Team Providers Care Faceter Name Role Phone Shaheed Henley MD Primary Care Provider Unavail able Encounter Details Date Type Department Care Team (Late st Contact Info) Description 02/12/2025 Procedure Pass [facility] Radiology [address] [place] [address] Social History Tobacco Use Types Packs/Day Years [...] PM EDT documented as of this encounter Functional Status * Calculated C-SSRS Risk Score (Lifetime/Recent) Answer Date of Assessment Author No Risk Indicated 02/12/2025 10:28 PM EDT Nelson Brown RN * [place] Suicide Severity Rating Scale (Screener/Recent Self-Report) Question Answer Date of Assessment Author 1. Wish to be (Past 1 Month) No 02/12/2025 10:28 PM EDT Nelson Stapleton RN 2. Non-Specific Active Suicidal Thoughts (Past 1 Month) No 02/12/2025 10:28 PM EDT Nelson Stapleton, JUSTIN 6. Suicidal Behavior (Lifetime) No 02/12/2025 10:28 PM EDT Nelson Stapleton, JUSTIN documented as of this encounter Plan of Treatment Not on file documented as of this encounter Visit Diagnoses Not on filedocumented in this encounter Care Teams Faceter Relationship Specialty Start Date End Date Shaheed Henley MD PCP - General Endocrinology 02/05/18 documented as of this encounter Additional Source Comments The information contained in this document represents components of the legal health record. It is not the complete legal health record.[facility]
--- OUTSIDE RECORDS SUMMARY | 2025-08-16 19:31 | XMS_ITS | Encounter Summary ---
Author Organization [employer] Address [address] [place] [address] Care Team Providers Care Applied Researcher Name Role Phone Marc Longo MD Primary Care Provider [phone] Encounter Details Date Type Department Care Team (Late st Contact Info) Description 01/23/2025 Lab Requisition [facility] - Main Lab [address] [place] [address] Courtney Roger MD [address] [place] [address] [phone] Anemia, unspecified; Other disorders of electrolyte and [...] 9:45 AM EST Office Visit Adult Medicine [address] [phone] Marc Longo MD [address] [place] [address] 06/21/2026 1:15 PM EDT Office Visit [facility] Hematology Oncology [address] [place] [phone] Heide Covarrubias MD [address] [place] [address] documented as of this encounter Procedures Procedure [...] [facility] Comment:Calculation based on the Chronic Kidney Disease Epidemiology Collaboration (CKD-EPI) equation refit without adjustment for race. BUN/Creatinine Ratio 31.9 LAB CHEMISTRY METHOD 01/24/2025 1:37 PM EDT [facility] Calcium 9.7 8.5 - 10.5 mg/dL LAB CHEMISTRY METHOD 01/24/2025 1:37 PM EDT [facility] AST (SGOT) 37 10 - 42 unit/L LAB CHEMISTRY METHOD 01/24/2025 1:37 PM EDT [facility] ALT (SGPT) 67(H) 10 - 60 unit/L LAB CHEMISTRY METHOD 01/24/2025 1:37 PM EDT [facility] Alkaline Phosphatase 108 42 - 121 unit/L LAB CHEMISTRY METHOD [facility] Total Protein 6.6 6.0 - 8.0 g/dL LAB CHEMISTRY METHOD 01/24/2025 1:37 PM [facility] Albumin 3.4 3.2 - 5.0 g/dL LAB CHEMISTRY METHOD 01/24/2025 1:37 PM EDT [facility] Total Bilirubin 0.3 0.0 - 1.4 mg/dL LAB CHEMISTRY METHOD 01/24/2025 1:37 PM [facility] Blood Venous blood specimen / Unknown Venipuncture / Unknown 01/24/2025 9:25 AM EDT 01/24/2025 11:22 AM EDT us Courtney Roger MD LAB BLOOD ORDERABLES Fin al Result [facility] [address] [place] [address], * (ABNORMAL) Complete blood count (01/24/2025 9:25 AM EDT) WBC 8.8 4.8 - 10.8 K/mcL LAB HEMETOLOGY METHOD 01/24/2025 12:19 PM EDT [facility] RBC 3.70(L) 3.80 - 4.80 M/mcL LAB HEMETOLOGY METHOD 01/24/2025 12:19 PM [facility] Hemoglobin 12.4 11.5 - 16.0 g/dL LAB HEMETOLOGY METHOD 01/24/2025 12:19 PM [facility] Hematocrit 37.7 35.0 - 47.0 % LAB HEMETOLOGY METHOD 01/24/2025 12:19 PM [facility] MCV 102.7(H) 79.0 - 98.0 FL LAB HEMETOLOGY METHOD 01/24/2025 12:19 PM [facility] MCH 33.8(H) 27.0 - 32.0 pcg LAB HEMETOLOGY METHOD 01/24/2025 12:19 PM [facility] MCHC 32.9 32.0 - 37.0 g/dL LAB HEMETOLOGY METHOD 01/24/2025 12:19 PM [facility] RDW 12.7 11.0 - 15.0 % LAB HEMETOLOGY METHOD 01/24/2025 12:19 PM [facility] Platelets 142 130 - 400 K/mcL LAB HEMETOLOGY METHOD 01/24/2025 12:19 PM [facility] MPV 11.8(H) 7.0 - 11.0 FL LAB HEMETOLOGY METHOD 01/24/2025 12:19 PM [facility] NRBC 0.0 <1.0 % LAB HEMETOLOGY METHOD 01/24/2025 12:19 PM [facility] NRBC Absolute 0.00 <0.10 K/mcL LAB HEMETOLOGY METHOD 01/24/2025 12:19 PM [facility] Blood Venous blood specimen / Unknown Venipuncture / Unknown 01/24/2025 9:25 AM EDT 01/24/2025 11:22 AM EDT us Courtney Roger MD LAB BLOOD ORDERABLES Fin al Result [facility] [address] [place] [address], documented in this encounter Visit Diagnoses Diagnosis Anemia, unspecified Other disorders of electrolyte and fluid balance, not elsewhere classified documented in this encounter Care Teams Applied Researcher Relationship Specialty Start Date End Date Marc Longo MD [address] [place] [phone] PCP - General Internal Medicine 07/14/15 documented as of this encounter
--- OUTSIDE RECORDS SUMMARY | 2025-08-16 19:31 | XMS_ITS | Encounter Summary ---
Author Organization [employer] Address [address] [place] [address] Care Team Providers Care Temporary Data Entry Clerk Name Role Phone Marc Longo MD Primary Care Provider [phone] Encounter Details Date Type Department Care Team (Late st Contact Info) Description 01/20/2025 Lab Requisition [facility] - Main Lab [address] [place] [address] Courtney Roger MD [address] [place] [address] [phone] Anemia, unspecified; Other disorders of electrolyte and [...] Assessment Author Yes 01/14/2025 6:15 AM EDT Alfie Yanes RN * Do you have serious [...] 9:45 AM EST Office Visit Adult Medicine [address] [phone] Marc Longo MD [address] [place] [address] 06/21/2026 1:15 PM EDT Office Visit [facility] Hematology Oncology [address] [place] [phone] Heide Covarrubias MD [address] [place] [address] documented as of this encounter Procedures Procedure [...] mmol/L LAB CHEMISTRY METHOD 01/20/2025 9:50 AM [facility] Potassium 4.5 3.5 - 5.5 mmol/L LAB CHEMISTRY METHOD 01/20/2025 9:50 AM [facility] Chloride 102 96 - 110 mmol/L LAB CHEMISTRY METHOD 01/20/2025 9:50 AM [facility] CO2 32 21 - 32 mmol/L LAB CHEMISTRY METHOD 01/20/2025 9:50 AM [facility] Anion Gap 5 3 - 11 LAB CHEMISTRY METHOD 01/20/2025 9:50 AM [facility] Glucose 113(H) 70 - 100 mg/dL LAB CHEMISTRY METHOD 01/20/2025 9:50 AM [facility] BUN 19 5 - 25 mg/dL LAB CHEMISTRY METHOD 01/20/2025 9:50 AM [facility] Creatinine 0.84 0.50 - 1.10 mg/dL LAB CHEMISTRY METHOD 01/20/2025 9:50 AM [facility] eGFR 83 >=60 mL/min/1. 73m2 LAB CHEMISTRY METHOD 01/20/2025 9:50 AM [facility] Comment:Calculation based on the Chronic Kidney Disease Epidemiology Collaboration (CKD-EPI) equation refit without adjustment for race. BUN/Creatinine Ratio 22.6 LAB CHEMISTRY METHOD 01/20/2025 9:50 AM EDT [facility] Calcium 9.3 8.5 - 10.5 mg/dL LAB CHEMISTRY METHOD 01/20/2025 9:50 AM T [facility] AST (SGOT) 18 10 - 42 unit/L LAB CHEMISTRY METHOD 01/20/2025 9:50 AM T [facility] ALT (SGPT) 96(H) 10 - 60 unit/L LAB CHEMISTRY METHOD 01/20/2025 9:50 AM T [facility] Alkaline Phosphatase 123(H) 42 - 121 unit/L LAB CHEMISTRY METHOD 01/20/2025 9:50 AM [facility] Total Protein 5.9(L) 6.0 - 8.0 g/dL LAB CHEMISTRY METHOD 01/20/2025 9:50 AM [facility] Albumin 3.0(L) 3.2 - 5.0 g/dL LAB CHEMISTRY METHOD 01/20/2025 9:50 AM [facility] Total Bilirubin 0.4 0.0 - 1.4 mg/dL LAB CHEMISTRY METHOD 01/20/2025 9:50 AM [facility] Blood Venous blood specimen / Unknown Venipuncture / Unknown 01/20/2025 6:13 AM EDT 01/20/2025 8:56 AM EDT us Courtney Roger MD LAB BLOOD ORDERABLES Fin al Result [facility] [address] [place] [address], * (ABNORMAL) Complete blood count (01/20/2025 6:13 AM EDT) WBC 4.8 4.8 - 10.8 K/[facility] LAB HEMETOLOGY METHOD 01/20/2025 9:34 AM EDT [facility] RBC 3.80 3.80 - 4.80 M/mcL LAB HEMETOLOGY METHOD 01/20/2025 9:34 AM [facility] Hemoglobin 12.9 11.5 - 16.0 g/dL LAB HEMETOLOGY METHOD 01/20/2025 9:34 AM [facility] Hematocrit 38.3 35.0 - 47.0 % LAB HEMETOLOGY METHOD 01/20/2025 9:34 AM [facility] MCV 101.6(H) 79.0 - 98.0 FL LAB HEMETOLOGY METHOD 01/20/2025 9:34 AM [facility] MCH 34.2(H) 27.0 - 32.0 pcg LAB HEMETOLOGY METHOD 01/20/2025 9:34 AM [facility] MCHC 33.7 32.0 - 37.0 g/dL LAB HEMETOLOGY METHOD 01/20/2025 9:34 AM [facility] RDW 12.2 11.0 - 15.0 % LAB HEMETOLOGY METHOD 01/20/2025 9:34 AM [facility] Platelets 81(L) 130 - 400 K/mcL LAB HEMETOLOGY METHOD 01/20/2025 9:34 AM [facility] Comment:previously verified by slide MPV 12.0(H) 7.0 - 11.0 FL LAB HEMETOLOGY METHOD 01/20/2025 9:34 AM [facility] NRBC 0.0 <1.0 % LAB HEMETOLOGY METHOD 01/20/2025 9:34 AM [facility] NRBC Absolute 0.00 <0.10 K/mcL LAB HEMETOLOGY METHOD 01/20/2025 9:34 AM [facility] Blood Venous blood specimen / Unknown Venipuncture / Unknown 01/20/2025 6:13 AM EDT 01/20/2025 8:56 AM EDT us Courtney Roger MD LAB BLOOD ORDERABLES Fin al Result [facility] [address] [place] [address], documented in this encounter Visit Diagnoses Diagnosis Anemia, unspecified Other disorders of electrolyte and fluid balance, not elsewhere classified documented in this encounter Care Teams Temporary Data Entry Clerk Relationship Specialty Start Date End Date Marc Longo MD [address] [place] [phone] PCP - General Internal Medicine 07/14/15 documented as of this encounter
--- OUTSIDE RECORDS SUMMARY | 2025-08-16 19:31 | XMS_ITS | Clinical Summary ---
Author Organization [facility] Address [address] [place] [address] Care Team Providers Care Heel Coverer Name Role Phone Marc Longo MD Primary Care Provider [phone] Allergies Active Allergy Reactions Criticality Noted Date Comments Aspirin 04/20/2007 Rash; NOT ALLERGIC PER PATIENT Rash; NOT ALLERGIC PER PATIENT Azithromycin Swelling 09/18/2015 Carisoprodol 07/21/2007 Codeine 11/17/2007 Gi upset Gi upset Diazepam 04/20/2007 gi upset,vom gi upset,vom Gabapentin 07/29/2014 nausea nausea Morphine 04/20/2007 gi upset,vom gi upset,vom Opium 02/02/2018 Oxycodone-Acetaminophen 04/20/2007 gi upset gi upset Jjo-Ehv-Hbzk-Nasulf-Na Asc-C 08/01/2017 Pheniramine 04/20/2007 Prednisone 02/29/2016 nausea [...] age to complete this topic Care Teams Heel Coverer Relationship Specialty Start Date End Date Marc Longo MD PCP - General Internal Medicine 06/24/22
--- OUTSIDE RECORDS SUMMARY | 2025-08-16 19:31 | XMS_ITS | Encounter Summary ---
Author Organization [facility] Address [address] [place] [phone] Phone Care Team Providers Care Air Bag Builder Name Role Phone Shaheed Henley MD Primary Care Provider Unavail able Reason for Referral * MRI/CAT Scan - Closed Specialty Diagnoses / Procedures Referred By Contac t Referred To Contact Procedures CT Abdomen/Pelvis Outside (No Interpretation) Krystyna Trevizo MD Phone: tel: fax: mailto:[email or web address] Referral ID Status Reason Start Date Expiration Date Visits Re quested Visits Authorized [id number] Closed 03/06/2018 03/06/2019 1 1 * MRI/CAT Scan - Closed Specialty Diagnoses / Procedures Referred By Contac t Referred To Contact Procedures CT Abdomen/Pelvis Outside (No Interpretation) Krystyna Trevizo MD Phone: tel: fax: mailto:[email or web address] Referral ID Status Reason Start Date Expiration Date Visits Re quested Visits Authorized [id number] Closed 03/06/2018 03/06/2019 1 1 * MRI/CAT Scan - Closed Specialty Diagnoses / Procedures Referred By Contac t Referred To Contact Procedures CT Abdomen/Pelvis Outside (No Interpretation) Krystyna Trevizo MD Phone: tel: fax: mailto:[email or web address] Referral ID Status Reason Start Date Expiration Date Visits Re quested Visits Authorized [id number] Closed 03/06/2018 03/06/2019 1 1 Encounter Details Date Type Department Care Team (Late st Contact Info) Description 03/06/2018 Transcribe Orders [facility] [address] [place] [address] Guido Edwards [address] [place] [phone] [email or web address] Social History Tobacco Use Types Packs/Day Years [...] on file documented as of this encounter Results * XR Abdomen Outside (No Interpretation) (03/06/2018 1:15 AM EDT) Narrative [facility] - 03/06/2018 8:38 AM EDT This study is for PACS storage only and not for interpretation. us Krystyna Trevizo MD IMG OUTSIDE IMAGING W/OUT INTERPRETATION Final Result [facility] * CT Abdomen/Pelvis Outside (No Interpretation) (03/06/2018 1:00 AM EDT) Narrative SYSTEMGENERATED, DOCUMENTATION - 03/06/2018 8:38 AM EDT This study is for PACS storage only and not for interpretation. us Krystyna JAIMESG OUTSIDE IMAGING W/OUT INTERPRETATION Final Result * CT Abdomen/Pelvis Outside (No Interpretation) (03/06/2018 12:45 AM EDT) Narrative SYSTEMGENERATED, DOCUMENTATION - 03/06/2018 8:38 AM EDT This study is for PACS storage only and not for interpretation. us Krystyna JAIMSEG OUTSIDE IMAGING W/OUT INTERPRETATION Final Result * FL Abdomen Outside (No Interpretation) (03/06/2018 12:30 AM EDT) Narrative [facility] - 03/06/2018 8:38 AM EDT This study is for PACS storage only and not for interpretation. us Krystyna JAIMESG OUTSIDE IMAGING W/OUT INTERPRETATION Final Result Performing Organization Address [facility] Co de Phone Number [email or web address] * XR Abdomen Outside (No Interpretation) (03/06/2018 12:15 AM EDT) Narrative [facility] - 03/06/2018 8:38 AM EDT This study is for PACS storage only and not for interpretation. us Krystyna SCOTT OUTSIDE IMAGING W/OUT INTERPRETATION Final Result Performing Organization Address [facility] Co de Phone Number [email or web address] * CT Abdomen/Pelvis Outside (No Interpretation) (03/06/2018 12:00 AM EDT) Narrative SYSTEMGENERATED, DOCUMENTATION - 03/06/2018 8:38 AM EDT This study is for PACS storage only and not for interpretation. us Krystyna SCOTT OUTSIDE IMAGING W/OUT INTERPRETATION Final Result documented in this encounter Visit Diagnoses Not on filedocumented in this encounter Care Teams Air Bag Builder Relationship Specialty Start Date End Date Shaheed Henley MD PCP - General Endocrinology 02/05/18 documented as of this encounter Additional Source Comments The information contained in this document represents components of the legal health record. It is not the complete legal health record.[facility]
--- OUTSIDE RECORDS SUMMARY | 2025-08-16 19:31 | XMS_ITS | Encounter Summary ---
Author Organization [employer] Address [address] [place] [address] Care Team Providers Care Surgical Scrub Technologist Name Role Phone Marc Longo MD Primary Care Provider [phone] Encounter Details Date Type Department Care Team (Late st Contact Info) Description 02/05/2025 Lab Requisition [facility] - Main Lab [address] [place] [address] Courtney Roger MD [address] [place] [address] [phone] Anemia, unspecified; Other disorders of electrolyte and [...] 9:45 AM EST Office Visit Adult Medicine [address] [phone] Marc Longo MD [address] [place] [address] 06/21/2026 1:15 PM EDT Office Visit [facility] Hematology Oncology [address] [place] [phone] Heide Covarrubias MD [address] [place] [address] documented as of this encounter Visit Diagnoses Diagnosis Anemia, unspecified Other disorders of electrolyte and fluid balance, not elsewhere classified documented in this encounter Care Teams Surgical Scrub Technologist Relationship Specialty Start Date End Date Marc Longo MD [address] [place] [phone] PCP - General Internal Medicine 07/14/15 documented as of this encounter
--- OUTSIDE RECORDS SUMMARY | 2025-08-16 19:31 | XMS_ITS | Encounter Summary ---
Author Organization [employer] Address [address] [place] [address] Care Team Providers Care Window Systems Administrator Name Role Phone Marc Longo MD Primary Care Provider [phone] Encounter Details Date Type Department Care Team (Late st Contact Info) Description 01/28/2025 Lab Requisition [facility] - Main Lab [address] [place] [address] Courtney Roger MD [address] [place] [address] [phone] Anemia, unspecified; Other disorders of electrolyte and [...] 9:45 AM EST Office Visit Adult Medicine [address] [phone] Marc Longo MD [address] [place] [address] 06/21/2026 1:15 PM EDT Office Visit [facility] Hematology Oncology [address] [place] [phone] Heide Covarrubias MD [address] [place] [address] documented as of this encounter Visit Diagnoses Diagnosis Anemia, unspecified Other disorders of electrolyte and fluid balance, not elsewhere classified documented in this encounter Care Teams Window Systems Administrator Relationship Specialty Start Date End Date Marc Longo MD [address] [place] [phone] PCP - General Internal Medicine 07/14/15 documented as of this encounter
--- OUTSIDE RECORDS SUMMARY | 2025-08-16 19:31 | XMS_ITS | Encounter Summary ---
Author Organization [employer] Address [address] [place] [address] Care Team Providers Care Frameman Name Role Phone Marc Longo MD Primary Care Provider [phone] Encounter Details Date Type Department Care Team (Late st Contact Info) Description 02/13/2025 Lab Requisition [facility] - Main Lab [address] [place] [address] Courtney Roger MD [address] [place] [address] [phone] Anemia, unspecified; Other disorders of electrolyte and [...] 9:45 AM EST Office Visit Adult Medicine [address] [phone] Marc Longo MD [address] [place] [address] 06/21/2026 1:15 PM EDT Office Visit [facility] Hematology Oncology [address] [place] [phone] Heide Covarrubias MD [address] [place] [address] documented as of this encounter Visit Diagnoses Diagnosis Anemia, unspecified Other disorders of electrolyte and fluid balance, not elsewhere classified documented in this encounter Care Teams Frameman Relationship Specialty Start Date End Date Marc Longo MD [address] [place] [phone] PCP - General Internal Medicine 07/14/15 documented as of this encounter
--- OUTSIDE RECORDS SUMMARY | 2025-08-16 19:31 | XMS_ITS | Encounter Summary ---
Author Organization [employer] Address [address] [place] [address] Care Team Providers Care Jewelry Designer Name Role Phone Marc Longo MD Primary Care Provider [phone] Encounter Details Date Type Department Care Team ([facility] Contact Info) Description 03/23/2025 Billing Patient Not Present Adult Medicine [address] [phone] Marc Longo MD [address] [place] [address] Social History Tobacco Use Types Packs/Day Years [...] 9:45 AM EST Office Visit Adult Medicine [address] [phone] Marc Longo MD [address] [place] [address] 06/21/2026 1:15 PM EDT Office Visit [facility] Hematology Oncology [address] [place] [phone] Heide Covarrubias MD [address] [place] [address] documented as of this encounter Visit Diagnoses Not on filedocumented in this encounter Care Teams Jewelry Designer Relationship Specialty Start Date End Date Marc Longo MD [address] [place] [phone] PCP - General Internal Medicine 07/14/15 documented as of this encounter
--- OUTSIDE RECORDS SUMMARY | 2025-08-16 19:31 | XMS_ITS | Encounter Summary ---
Author Organization [facility] Address [address] [place] [address] Phone Care Team Providers Care Icing Coater Name Role Phone Shaheed Henley MD Primary Care Provider Unavail able Encounter Details Date Type Department Care Team (Late st Contact Info) Description 03/06/2018 Procedure Pass [facility] [address] [place] [address] Social History Tobacco Use Types Packs/Day Years [...] on filedocumented in this encounter Care Teams Icing Coater Relationship Specialty Start Date End Date Shaheed Henley MD PCP - General Endocrinology 02/05/18 documented as of this encounter Additional Source Comments The information contained in this document represents components of the legal health record. It is not the complete legal health record.[facility]
[2025-08-16 19:57] LABS: Appearance Urine Clear; Glucose Urine UA Negative (Negative); PH 6.5 (5.0-9.0); Specific Gravity - Urine 1.010 (1.005-1.025); UMIC TRIGGER UACC YES
[2025-08-16 19:59] LABS: UACC Culture Trigger YES
[2025-08-16 20:07] LABS: Hematocrit 45.1 % (37.0-47.0); Hemoglobin 16.1 g/dl (12.0-16.0); INTERNATIONAL NORM RATIO 1.0 (0.9-1.1); Imm Gran Abs Auto 0.07 X10*3/uL (0.00-0.03); Imm Gran Pct Auto 0.7 % (0.0-0.4); Lymphocytes Absolute Auto 1.9 X10*3/uL (1.2-4.9); MANUAL DIFF FLAG SCAN; Mean Corpuscular HGB Conc 35.7 g/dl (31.0-35.0); Mean Corpuscular Hemoglobin 33.0 pg (27.0-33.0); Mean Corpuscular Volume 92.4 fL (80.0-98.0); NRBC Abs Auto 0.000 X10*3/uL (0.0-0.012); NRBC Pct Auto 0.0 /100WBC (0.0-0.2); PLT CLUMP 1; Prothrombin Time 11.8 SEC (11.2-13.5); Red Blood Count 4.88 X10*6/uL (4.20-5.50); SCAN SMEAR FLAG 1
[2025-08-16 20:15] LABS: Alanine Aminotransferase 15 U/L (0-31); Albumin Level 5.1 g/dL (3.5-5.0); Alkaline Phosphatase 100 U/L (39-117); Anion Gap 18 (12-20); Aspartate Amino Transferase 23 U/L (5-31); Blood Urea Nitrogen 21 mg/dL (9-16); Calcium 10.6 mg/dL (8.4-10.2); Carbon Dioxide 29 mmol/L (22-29); Chloride 95 mmol/L (96-108); Creatinine Clr Calc Pharmacy 51.9; Estimated Glomerular Filt Rate 51; Lipase 29 U/L (8-78); Potassium 3.1 mmol/L (3.3-5.1); Sodium 139 mmol/L (135-145); Total Protein 8.3 g/dL (6.5-8.0)
[2025-08-16 20:31] LABS: Platelet Count 104 X10*3/uL (160-400); White Blood Count 10.1 X10*3/uL (4.8-10.8)
--- NOTE | 2025-08-16 21:06 | ED_ITS ---
HPI - General Adult General Chief complaint: Abdominal Pain Stated complaint: colostomy stoma 10/10 pain x 10 days Time Seen by Provider: 08/16/25 19:20 Source: patient, family (mother and father), RN notes reviewed and old records reviewed Mode of arrival: EMS Limitations: no limitations History of Present Illness ED Provider: Elliott HPI narrative: 55-year-old female with a past medical history significant for cognitive delay, PTSD, mood disorder, iron-deficiency anemia, asthma, chronic kidney disease, colostomy presents for evaluation abdominal pain. Patient reports decreased appetite for the last 3 days pain She reports severe generalized abdominal pain since this morning. She reports decreased output in her ostomy She denies any fevers or chills. She endorses nausea. She reports 10/10 pain to her entire abdomen. She has no other complaints or concerns at this time. She reports that she had a cholecystectomy last year which led to her colon feeling and she had a colostomy placed in January this year with no plan for reversal Related Data Home Medications ?Medication ?Instructions ?Recorded ?Confirmed atorvastatin 10 mg tablet 10 mg PO BEDTIME 02/18/25 folic acid 1 mg tablet 1 mg PO DAILY 02/18/2503/11 metoprolol succinate 25 mg 25 mg PO 1XD 02/18/2503/11 tablet,extended release 24 hr sennosides 8.6 mg tablet (senna) 8.6 mg PO BID 5 03/11/25 hydrochlorothiazide 25 mg tablet 25 mg PO DAILY 03/11/25 hydroxyzine HCl 25 mg tablet 50 mg PO TID PRN mild anx iety 03/11/25 03/11/25 risperidone 0.5 mg tablet 1 mg PO BEDTIME 03/11/2503/30 trazodone 100 mg tablet 125 mg PO BEDTIME 03/11/25 0 03/11/25 Previous Rx's ?Medication ?Instructions ?Recorded albuterol sulfate 90 mcg/actuation 2 puff inhalation Q 4H PRN Wheezing 02/07/25 aerosol inhaler 30 days #1 inhaler clonidine HCl 0.1 mg tablet 0.1 mg PO TID 30 days #90 tabs 02/07/25 dicyclomine 10 mg capsule 10 mg PO QIDACHS 30 days #12 0 caps 02/07/25 famotidine 20 mg tablet 20 mg PO BID 30 days #60 tab s 02/07/25 ferrous sulfate 325 mg (65 mg 325 mg PO DAILY 30 days #30 tabs 02/07/25 iron) tablet (FeroSul) omeprazole 40 mg capsule,delayed 40 mg PO BID 30 days #60 caps 02/07/25 release sertraline 100 mg tablet 150 mg (1.5 x 100 mg) PO YULI LY 30 02/23/25 days #45 tabs psyllium husk 3.4 gram/5.4 gram 1 tbsp PO BID #660 gra ms 03/12/25 oral powder (Metamucil) Allergies Allergy/AdvReac Type Severity Reaction Status Date / Time Opioids - Morphine Analogues Allergy Severe NAUSEA, Verified 08/16/25 19:17 (OPIOIDS - MORPHINE HIVES, ANALOGUES) STOPS BREATHING Review of Systems 2 Constitutional: Constitutional: Denies chills, Denies fever(s), Denies headache(s) and Reports malaise Eyes: Eyes: Denies blurry vision ENT: Denies vertigo, Denies dizziness, Denies dry mouth and Denies headache(s) Cardiovascular: Cardiovascular: Denies chest pain and Denies dyspnea on exertion Respiratory: Respiratory: Denies cough and Denies dyspnea on exertion Gastrointestinal: Gastrointestinal: Reports abdominal pain, Denies melena, Reports bloating, Denies hematochezia, Reports nausea and Denies vomiting Musculoskeletal: Musculoskeletal: Denies back pain Integumentary/Breasts: Skin/Breast: Denies rash Neurologic: Denies vertigo, Denies dizziness and Denies headache(s) [facility] Past Medical History Medical History Adjustment disorder with mixed disturbance of emotions and conduct in remission CKD stage G3b/A1, GFR 30-44 and albumin creatinine ratio <30 mg/g Marijuana use Tobacco dependence HLD (hyperlipidemia) Constipation Asthma ERIN (iron deficiency anemia) GERD (gastroesophageal reflux disease) HTN (hypertension) Anxiety Intellectual disability Acute adjustment disorder with mixed disturbance of emotions and conduct PTSD (post-traumatic stress disorder) MDD (major depressive disorder), recurrent severe, without psychosis Surgical History Hx of cholecystectomy Previous back surgery Social History Social History Household Members: Family Household Members Other:: roomate Housing: House Do you presently have visiting nurse or other home services: Yes Comment: 5 minute checks Patient Tobacco Use Status: Former Tobacco user Tobacco use type: Cigarette Smoked in Last 30 Days: No e-Cigarette/Vaping Use: Never Used Second Hand Smoke Exposure: No Use of substances other than those prescribed or required for medical reasons: Yes Substance Use Type: Marijuana Substance Use Frequency: Chronic Longstanding Last Used Substance: Hours (ago) Any prior treatment program specific to substance use: No Advance Directives: Yes Advance Directives on File: Yes Advance Directives Date on File: 02/09/25 Do you have a plan to hurt others: No Plan service: No Sexual orientation: Straight/Heterosexual Physical Exam ED Vital Signs: Vital Signs - 24 hr 08/16/25 19:14 08/16/25 21:24 08/16/25 21:25 Temperature 99.1 F Pulse Rate 108 H 99 99 Respiratory Rate 24 H 20 20 Blood Pressure 173/82 H 136/74 147/76 H Pulse Oximetry 94 98 99 Oxygen Delivery Method Room Air Room Air Room Air 08/16/25 21:40 08/16/25 22:34 08/16/25 22:39 Temperature 97.6 F Pulse Rate 100 99 99 Respiratory Rate 22 H 20 20 Blood Pressure 132/71 129/59 L 114/77 Pulse Oximetry 95 95 95 Oxygen Delivery Method Room Air Room Air Room Air BMI result Body Mass Index 32.2 Const General: no acute distress, alert and awake Nutritional Appearance: well nourished Orientation/consciousness: patient oriented x3 HENMT Head: Yes normocephalic and Yes atraumatic Eyes Eyelids: Yes eyelids normal Conjunctivae: conjunctivae normal Sclerae: sclerae normal Corneas: corneas normal Pupils: Equal, round and reactive pupils present EOM: EOMs intact bilaterally Neck Neck: Yes full ROM Resp Effort & Inspection: normal respiratory effort, able to speak in complete sentences and not labored Cardio Rate: regular rate Rhythm: regular rhythm GI Other: Colostomy in place in left lower abdomen. Stoma appears red, healthy.. There was a small amount of stool within the ostomy bag. There appears to be air within the bag as well. The patient has diffuse abdominal tenderness without rigidity Palpation (GI): Soft to palpation, not firm, no guarding and not rigid Skin General skin exam: no rashes or lesions noted and elasticity normal Neuro General: patient oriented x3 Cranial nerves: Yes Equal, round and reactive pupils present and Yes Bilaterally intact EOM present Extrem Other: Moving all extremities well without any obvious deformities Course Reevaluation(s) Reevaluation #1: Patient continuing to complain of abdominal pain despite IV Tylenol. She reports allergy to all opiates in his unwilling to try opiates even with premedication. I agreed to give her a low dose of Toradol, 50 mg IV. She does have a history of chronic kidney disease but her creatinine today is 1.12 with an estimated GFR of 51. Time: 22:34 Reevaluation #2: The patient's CT scan shows moderate constipation and a dilated CBD up to 15 mm. The patient's LFTs are within normal limits. No other findings on CT scan to explain her pain. We will discuss with GI given the dilated CBD which may be chronic due to her history of cholecystectomy Time: 01:32 Reevaluation #3: Discussed with GI, Dr. Osullivan, who recommends admission for MRCP. Time: 01:39 Medications Administered Discontinued Medications Generic Name Dose Route Start Last Admin Trade Name Freq PRN Reason Stop Dose Admin Al Hydroxide/Mg Hydroxide 30 ml 08/17/25 01:16 08/17/25 01:35 Magnesium Hydrox/Alum Hydrox 30 Ml Oral.Susp PO 08/17/25 01:17 30 ml ONCE ONE Administration Benzonatate 200 mg 08/16/25 22:33 08/16/25 23:02 Benzonatate 100 Mg Capsule PO 08/16/25 22:34 200 mg ONCE ONE Administration Diatrizoate Meglum/Diatrizoate Sod 30 ml 08/16/25 22:49 08/16/25 22:51 Diatrizoate Meglumine, Sodium 30 Ml Solution PO 08/16/25 22:50 30 ml ONCE ONE Administration Diazepam 5 mg 08/16/25 21:27 08/16/25 21:41 Diazepam 10 Mg/2 Ml Cartridge IVPUSH 08/16/25 21:28 5 mg STAT STA Administration Acetaminophen 1,000 mg in 100 mls @ 400 mls/hr 08/16/25 19:48 08/16/25 21:38 Ofirmev IV 08/16/25 20:02 Infused ONCE ONE Infusion Sodium Chloride 1,000 mls @ 999 mls/hr 08/16/25 20:00 08/16/25 21:38 Ns IV 08/16/25 21:00 Infused .Q1H1M JOSE MARIA Infusion Lactated Ringer's 1,000 mls @ 999 mls/hr 08/16/25 21:30 08/16/25 22:32 Lr IV 08/16/25 22:30 Infused .Q1H1M JOSE MARIA Infusion Iohexol 85 ml 08/16/25 22:48 08/16/25 22:49 Iohexol 350 Mg/Ml 100 Ml Infus..Btl IV 08/16/25 22:49 85 ml ONCE ONE Administration Ketorolac Tromethamine 15 mg 08/16/25 22:33 08/16/25 23:01 Ketorolac Tromethamine 15 Mg/Ml Vial IVPUSH 08/16/25 22:34 15 mg ONCE ONE Administration Lidocaine HCl 15 ml 08/17/25 01:16 08/17/25 01:35 Lidocaine Hcl Viscous 2 % 15 Ml Solution MUCOUS MEM 08/17/25 01:17 15 ml ONCE ONE Administration Ondansetron HCl 4 mg 08/16/25 19:48 08/16/25 20:42 Ondansetron Hcl 4 Mg/2 Ml Vial IVPUSH 08/16/25 19:49 4 mg ONCE ONE Administration Potassium Chloride 60 meq 08/16/25 21:27 08/16/25 21:42 Potassium Chloride Er 20 Meq Tab.Er.Prt PO 08/16/25 21:28 60 meq ONCE ONE Administration Medical Decision Making Medical Decision Making MDM Narrative: 55-year-old female with a past medical history as above presents for evaluation of generalized abdominal pain. She reports limited stool output in her ostomy over the last couple of days. There does appear to be air and a small amount of stool within the ostomy bag. Therefore I have a very low suspicion for a complete bowel obstruction. The patient is quite uncomfortable with significant diffuse tenderness. She had a surgery a few months ago. I have a higher suspicion for constipation/ileus. Also in differential includes diverticulitis, colitis, ischemic bowel. There was no evidence of infectious process at this time. The patient is afebrile and no leukocytosis. Differential Diagnosis Differential Diagnoses: The differential diagnosis associated with the presentation includes As above Admission/Observation Consideration of admission/observation: Escalation of care including admission/observation considered Consult Healthcare Provider Management of the patient was discussed with: Director Of Loss Prevention (ALINE Osullivan) Lab Data MDM Lab Attestation statement: I reviewed the patient's lab results. No leukocytosis. The patient has no significant anemia with a hemoglobin 16.1 normal hematocrit of 45.1. Slightly low platelet count of a 102151. The patient's potassium is low at 3.1, [place] [address]. I suspect this is due to decreased oral intake. We will treat with IV fluids. The patient does have an elevated lactate to 2.9 which improved with IV fluids. There was no known infectious process. I do not suspect sepsis. 08/16/25 19:49 08/16/25 19:49 Labs: Lab Results 08/16/25 08/16/25 08/16/25 Range/Units 19:49 19:50 22:17 WBC 10.1 (4.8-10.8) X10*3/uL RBC 4.88 (4.20-5.50) X10*6/uL Hgb 16.1 H (12.0-16.0) g/dl Hct 45.1 (37.0-47.0) % MCV 92.4 (80.0-98.0) fL MCH 33.0 (27.0-33.0) pg MCHC 35.7 H (31.0-35.0) g/dl RDW 12.5 (11.0-16.0) % Plt Count 104 L D (160-400) X10*3/uL MPV 11.7 (9.4-12.3) fL Immature Gran % (Auto) 0.7 H (0.0-0.4) % Neut % (Auto) 73.4 H (45-73) % Lymph % (Auto) 18.7 L (20-40) % [place] % (Auto) 6.7 (2-11) % Eos % (Auto) 0.3 (0-4) % Baso % (Auto) 0.2 (0-2) % Lymph # (Auto) 1.9 (1.2-4.9) X10*3/uL [place] # (Auto) 0.7 (0.1-1.2) X10*3/uL Eos # (Auto) 0.0 (0.0-0.4) X10*3/uL Baso # (Auto) 0.0 (0.0-0.2) X10*3/uL Abs Immat Gran (auto) 0.07 H (0.00-0.03) X10*3/uL Absolute Neuts (auto) 7.4 (2.0-8.3) x10*3/uL Absolute Nucleated RBC 0.000 (0.0-0.012) X10*3/uL Nucleated RBC % (auto) 0.0 (0.0-0.2) /100WBC Smear Tech's Comments VERIFIED PT 11.8 (11.2-13.5) SEC INR 1.0 (0.9-1.1) Sodium 139 (135-145) mmol/L Potassium 3.1 L (3.3-5.1) mmol/L Chloride 95 L (96-108) mmol/L Carbon Dioxide 29 (22-29) mmol/L Anion Gap 18 (12-20) BUN 21 H (9-16) mg/dL Creatinine 1.12 (0.5-1.4) mg/dL Estim Creat Clear Calc 51.9 Estimated GFR 51 Random Glucose 170 H (60-115) mg/dL Lactic Acid 2.9 H* (0.5-2.0) mmol/L Lactic Acid F/U @ 2Hr 2.6 H* (0.5-2.0) mmol/L Lactic Acid F/U @ 4Hr Calcium 10.6 H (8.4-10.2) mg/dL Magnesium 2.0 (1.6-2.6) mg/dL Total Bilirubin 0.6 (0.0-1.0) mg/dL Direct Bilirubin 0.2 (0.0-0.5) mg/dL AST 23 (5-31) U/L ALT 15 (0-31) U/L Alkaline Phosphatase 100 (39-117) U/L Total Protein 8.3 H (6.5-8.0) g/dL Albumin 5.1 H (3.5-5.0) g/dL Lipase 29 (8-78) U/L Urine Color Yellow Urine Appearance Clear Urine pH 6.5 (5.0-9.0) Ur Specific [place] 1.010 (1.005-1.025) Urine Protein 30 (1+) H (Neg-Trace) mg/dL Urine Glucose (UA) Negative (Negative) mg/dL Urine Ketones Negative (Negative) mg/dL Urine Blood Negative (Negative) Urine Nitrite Negative (Negative) Ur Leukocyte Esterase Trace H (Negative) Urine RBC 0-2 (0-2) /HPF Urine WBC 6-10 H (0-5) /HPF Ur Squamous Epith Cells 6-10 (0-2) /HPF Urine Bacteria Trace (None Seen) Hyaline Casts 0-2 (0-2) /LPF 08/17/25 Range/Units 00:39 WBC (4.8-10.8) X10*3/uL RBC (4.20-5.50) X10*6/uL Hgb (12.0-16.0) g/dl Hct (37.0-47.0) % MCV (80.0-98.0) fL MCH (27.0-33.0) pg MCHC (31.0-35.0) g/dl RDW (11.0-16.0) % Plt Count (160-400) X10*3/uL MPV (9.4-12.3) fL Immature Gran % (Auto) (0.0-0.4) % Neut % (Auto) (45-73) % Lymph % (Auto) (20-40) % [place] % (Auto) (2-11) % Eos % (Auto) (0-4) % Baso % (Auto) (0-2) % Lymph # (Auto) (1.2-4.9) X10*3/uL [place] # (Auto) (0.1-1.2) X10*3/uL Eos # (Auto) (0.0-0.4) X10*3/uL Baso # (Auto) (0.0-0.2) X10*3/uL Abs Immat Gran (auto) (0.00-0.03) X10*3/uL Absolute Neuts (auto) (2.0-8.3) x10*3/uL Absolute Nucleated RBC (0.0-0.012) X10*3/uL Nucleated RBC % (auto) (0.0-0.2) /100WBC Smear Tech's Comments PT (11.2-13.5) SEC INR (0.9-1.1) Sodium (135-145) mmol/L Potassium (3.3-5.1) mmol/L Chloride (96-108) mmol/L Carbon Dioxide (22-29) mmol/L Anion Gap (12-20) BUN (9-16) mg/dL Creatinine (0.5-1.4) mg/dL Estim Creat Clear Calc Estimated GFR Random Glucose (60-115) mg/dL Lactic Acid (0.5-2.0) mmol/L Lactic Acid F/U @ 2Hr (0.5-2.0) mmol/L Lactic Acid F/U @ 4Hr Cancelled Calcium (8.4-10.2) mg/dL Magnesium (1.6-2.6) mg/dL Total Bilirubin (0.0-1.0) mg/dL Direct Bilirubin (0.0-0.5) mg/dL AST (5-31) U/L ALT (0-31) U/L Alkaline Phosphatase (39-117) U/L Total Protein (6.5-8.0) g/dL Albumin (3.5-5.0) g/dL Lipase (8-78) U/L Urine Color Urine Appearance Urine pH (5.0-9.0) Ur Specific [place] (1.005-1.025) Urine Protein (Neg-Trace) mg/dL Urine Glucose (UA) (Negative) mg/dL Urine Ketones (Negative) mg/dL Urine Blood (Negative) Urine Nitrite (Negative) Ur Leukocyte Esterase (Negative) Urine RBC (0-2) /HPF Urine WBC (0-5) /HPF Ur Squamous Epith Cells (0-2) /HPF Urine Bacteria (None Seen) Hyaline Casts (0-2) /LPF Discharge Plan Discharge Clinical Impression: Abdominal pain, Acute hypokalemia Patient Disposition: Admitted As Inpatient Print Language: Argentine
[2025-08-16 21:18] LABS: Magnesium 2.0 mg/dL (1.6-2.6)
[2025-08-16] MEDS: diazePAM 10 MG/2 ML CARTRIDGE 5 MG IVPUSH (21:41)
[2025-08-16] MEDS: Potassium Chloride ER 20 MEQ TAB.ER.PRT 60 MEQ PO (21:42)
[2025-08-16] MEDS: Lactated Ringers 1,000 ML 999 ML IV (21:47)
[2025-08-16 21:56] LABS: Reflex Lactate? Lactic Acid Added
--- NOTE | 2025-08-16 22:10 | PC.NURSE ---
NS ivfs complete, now new orders for LR. No suspicion of infectious process.
[2025-08-16 22:38] LABS: ~Lactic Acid-LAB USE ONLY 2.6 mmol/L (0.5-2.0)
[2025-08-16] MEDS: iohexoL 350 MG/ML 100 ML INFUS..BTL 85 ML IV (22:49)
[2025-08-17 00:21] LABS: Reflex Lactate? 2 Y
--- NOTE | 2025-08-17 00:35 | PC.NURSE ---
Report received and care assumed around 0000. Pt can be heard moaning out in discomfort. EDT to bedside to draw repeat lactic and inquired about IVF that the pt has received. It does not currently appear as though she has received any additional fluids past the 2nd lactic. This lactic to be drawn now and NIELS to be consulted regarding IVF and pain medication. Pt reports continued 10/10 generalized abdominal pain and is noted to be tearful, lips are dry/chapped at this time. Colostomy per visitor generally has a PB consistency however now it appears to be extremely more watery and has some rama as the visitor describes. Pt aware of plan and agreeable.
--- NOTE | 2025-08-17 00:54 | MHC.EDTECH ---
per provider lactic no longer needed.
[2025-08-17] MEDS: Magnesium Hydrox/Alum Hydrox 30 ML ORAL.SUSP PO (01:35)
[2025-08-17] MEDS: Lidocaine HCl Viscous 2 % 15 ML SOLUTION MUCOUS MEM (01:35)
--- NOTE | 2025-08-17 01:44 | MHC.EDTECH ---
pt cleaned, linens changed. purewick in place.
--- NOTE | 2025-08-17 02:01 | PC.NURSE ---
Pt continues to report the presence of pain/discomfort to her abdomen. The pt was medicated per MAR, NIELS to bedside to discuss plan and call with GI. Pt offered admission to allow for HIDA scan in the morning to assess the pt's billiary ducts and cause for pain, all parties agreeable. The pt's colostomy bag was emptied; liquid stool with 2 small pebble like stools noted/passed. Pt continues to moan on in discomfort. Pt noted to be soaked and bed saturated with urine, RN and EDT assisted with change director. Pt's bedside visitor requested the application of a purewick to assist with patient's urinary incontinence, frequency.
--- NOTE | 2025-08-17 02:03 | PM.IMHP ---
History of Present Illness Date of Service: 08/17/25 Chief Complaint: Abdominal pain a 55-year-old female with a history of cognitive delay, PTSD, mood disorder, iron-deficiency anemia, asthma, COPD on oxygen, chronic kidney disease, hypertension, hyperlipidemia, GERD, and colostomy (placed in January after bowel perforation during cholecystectomy last year), who presents with severe generalized abdominal pain. The patient reports decreased appetite over the past three days and worsening abdominal pain since this morning, rated 10/10 in intensity, associated with nausea and decreased ostomy output. She denies fever, chills, or vomiting. In the ED, labs were reassuring with normal liver function tests. CT abdomen/pelvis revealed moderate constipation and a dilated common bile duct measuring up to 15 mm. GI was consulted and recommended admission for further evaluation with MRCP in the morning. The patient is hemodynamically stable and will be admitted for pain management, monitoring, and continued workup. Review of Systems Review of Systems: Yes all other systems are reviewed and are negative [facility] Medical History Adjustment disorder with mixed disturbance of emotions and conduct in remission CKD stage G3b/A1, GFR 30-44 and albumin creatinine ratio <30 mg/g Marijuana use Tobacco dependence HLD (hyperlipidemia) Constipation Asthma ERIN (iron deficiency anemia) GERD (gastroesophageal reflux disease) HTN (hypertension) Anxiety Intellectual disability Acute adjustment disorder with mixed disturbance of emotions and conduct PTSD (post-traumatic stress disorder) MDD (major depressive disorder), recurrent severe, without psychosis Surgical History Hx of cholecystectomy Previous back surgery Social History Household Members: Family Household Members Other:: roomate Housing: House Do you presently have visiting nurse or other home services: Yes Comment: 5 minute checks Patient Tobacco Use Status: Former Tobacco user Tobacco use type: Cigarette Smoked in Last 30 Days: No e-Cigarette/Vaping Use: Never Used Second Hand Smoke Exposure: No Use of substances other than those prescribed or required for medical reasons: Yes Substance Use Type: Marijuana Substance Use Frequency: Chronic Longstanding Last Used Substance: Hours (ago) Any prior treatment program specific to substance use: No Advance Directives: Yes Advance Directives on File: Yes Advance Directives Date on File: 02/09/25 Do you have a plan to hurt others: No Plan service: No Sexual orientation: Straight/Heterosexual Meds Allergies Allergy/AdvReac Type Severity Reaction Status Date / Time Opioids - Morphine Analogues Allergy Severe NAUSEA, Verified 08/16/25 19:17 (OPIOIDS - MORPHINE HIVES, ANALOGUES) STOPS BREATHING Home Medications ?Medication ?Instructions ?Recorded ?Confirmed ?Last Taken ?Type atorvastatin 10 mg tablet 10 mg PO BEDTIME 02/18/25 03/11/25 02/17/25 21:00 History folic acid 1 mg tablet 1 mg PO DAILY 02/18/25 03/11/25 02/18/25 09:00 History metoprolol succinate 25 mg 25 mg PO 1XD 02/18/25 03/11/25 02/18/25 09:45 History tablet,extended release 24 hr sennosides 8.6 mg tablet (senna) 8.6 mg PO BID 02/18/25 03/11/25 02/18/25 10:00 History hydrochlorothiazide 25 mg tablet 25 mg PO DAILY 03/11/25 03/11/25 Unknown History hydroxyzine HCl 25 mg tablet 50 mg PO TID PRN mild anxiety 03/11/25 03/11/25 03/11/25 11:00 History risperidone 0.5 mg tablet 1 mg PO BEDTIME 03/11/25 03/11/25 Unknown History trazodone 100 mg tablet 125 mg PO BEDTIME 03/11/25 03/11/25 Unknown History Physical Exam Vital Signs and Narrative: Vital Signs: Last Vital Signs Temp 97.6 F 08/16/25 21:40 Pulse 99 08/16/25 22:39 Resp 20 08/16/25 22:39 BP 114/77 08/16/25 22:39 Pulse Ox 95 08/16/25 22:39 O2 Del Method Room Air 08/16/25 22:39 BMI result Body Mass Index 32.2 Const: Other: Constitutional : Awake, interactive, not in distress Neck : Normal inspection, Supple Cardiovascular : RRR, no JVP, no lower extremity edema Respiratory : good bilateral air entry, no crackles, wheezes or rhonchi Gastrointestinal: soft, lax, Normal bowel sounds, generalized tenderness, left sided ostomy with empty bag Skin : Warm, Dry Neurological : Alert & oriented x3, No focal deficit Results Labs 08/16/25 19:49 08/16/25 19:49 Labs: Laboratory Results - last 24 hr 08/16/25 08/16/25 08/16/25 19:49 19:50 22:17 MCV 92.4 MCH 33.0 MCHC 35.7 H RDW 12.5 Plt Count 104 L D MPV 11.7 Immature Gran % (Auto) 0.7 H Neut % (Auto) 73.4 H Lymph % (Auto) 18.7 L [place] % (Auto) 6.7 Eos % (Auto) 0.3 Baso % (Auto) 0.2 Lymph # (Auto) 1.9 [place] # (Auto) 0.7 Eos # (Auto) 0.0 Baso # (Auto) 0.0 Abs Immat Gran (auto) 0.07 H Absolute Neuts (auto) 7.4 Absolute Nucleated RBC 0.000 Nucleated RBC % (auto) 0.0 Smear Tech's Comments VERIFIED PT 11.8 INR 1.0 Anion Gap 18 Estim Creat Clear Calc 51.9 Estimated GFR 51 Random Glucose 170 H Lactic Acid 2.9 H* Lactic Acid F/U @ 2Hr 2.6 H* Lactic Acid F/U @ 4Hr Calcium 10.6 H Magnesium 2.0 Total Bilirubin 0.6 Direct Bilirubin 0.2 AST 23 ALT 15 Alkaline Phosphatase 100 Total Protein 8.3 H Albumin 5.1 H Lipase 29 Urine Color Yellow Urine Appearance Clear Urine pH 6.5 Ur Specific [place] 1.010 Urine Protein 30 (1+) H Urine Glucose (UA) Negative Urine Ketones Negative Urine Blood Negative Urine Nitrite Negative Ur Leukocyte Esterase Trace H Urine RBC 0-2 Urine WBC 6-10 H Ur Squamous Epith Cells 6-10 Urine Bacteria Trace Hyaline Casts 0-2 08/17/25 00:39 MCV MCH MCHC RDW Plt Count MPV Immature Gran % (Auto) Neut % (Auto) Lymph % (Auto) [place] % (Auto) Eos % (Auto) Baso % (Auto) Lymph # (Auto) [place] # (Auto) Eos # (Auto) Baso # (Auto) Abs Immat Gran (auto) Absolute Neuts (auto) Absolute Nucleated RBC Nucleated RBC % (auto) Smear Tech's Comments PT INR Anion Gap Estim Creat Clear Calc Estimated GFR Random Glucose Lactic Acid Lactic Acid F/U @ 2Hr Lactic Acid F/U @ 4Hr Cancelled Calcium Magnesium Total Bilirubin Direct Bilirubin AST ALT Alkaline Phosphatase Total Protein Albumin Lipase Urine Color Urine Appearance Urine pH Ur Specific [place] Urine Protein Urine Glucose (UA) Urine Ketones Urine Blood Urine Nitrite Ur Leukocyte Esterase Urine RBC Urine WBC Ur Squamous Epith Cells Urine Bacteria Hyaline Casts Assessment and Plan (1) Colostomy in place: Status: Acute (2) Abdominal pain: Status: Acute (3) Acute hypokalemia: Status: Acute (4) Hypercalcemia: Status: Acute (5) Acute lactic acidosis: Status: Acute (6) Dilated cbd, acquired: Status: Acute Plan a 55-year-old female with a history of cognitive delay, PTSD, mood disorder, iron-deficiency anemia, asthma, COPD on oxygen, chronic kidney disease, hypertension, hyperlipidemia, GERD, and colostomy (placed in January after bowel perforation during cholecystectomy last year), who presents with severe generalized abdominal pain. Abdominal pain CT showing significant constipation and dilatation of CBD Could be related to Constipation, less likely infection but can not rule out , Dilated CBD could be post CCY manifestation Start Miralax, Senna and Colace GI To follow up ; MRCP per Rec communicated to ED team IVF maintenance Tylenol, Toradol for pain PRN Acute lactic acidosis Dehydration related not due to sepsis given IVF , to follow Acute hypokalemia likely 2/2 Thiazides; replacement given Monitor BMP Acute Hypercalcemia likely related to Thiazides; Check PTH and Vit D3 IVF and recheck COPD continue home meds prn Albuterol GERD Omerpazole Mood disorder Risperidone , Trazodone and Sertraline prn Atarax HTN, HLD Metoprolol, HCT, Clonidine and Atorvastatin DVT PPx: Lovenox Code status: Full code MED REC PENDING The patient will need 2 overnight hospital stay pending GI evaluation, correcting electrolytes and treatment of abdominal pain pending MRCP Quality Stroke Does the patient have a stroke diagnosis?: No VTE Prior VTE?: No VTE Risk Level:: Medical - moderate - high VTE Device Contraindication: Treatment Not Indicated VTE Drug Contraindication: N/A - Med Ordered
--- NOTE | 2025-08-17 02:26 | PC.NURSE ---
Pt continues to moan out is pain/discomfort. Admission orders are coming in, hospitalist to bedside for primary evaluation. RN discussed concerns surrounding 10/10 abdominal pain and no PRN pain medication to cover this level of pain. Plan for RN to administer ordered medication as well as PRN meds and to provide the pt with prune juice as the provide believes this level of discomfort to be secondary to stool burden. Pt is noted to have more pebble like stool to pass from ostomy.
[2025-08-17] MEDS: Lactated Ringers 1,000 ML 100 ML IVCONT ×2 (02:37→12:11)
[2025-08-17] MEDS: Milk of Magnesia 30 ML ORAL.SUSP PO (02:37)
[2025-08-17 03:06] VITALS: BP 156/69; PULSE 85; RESP 17; TEMP 36.3; O2SAT 94
--- NOTE | 2025-08-17 03:48 | PC.NURSE ---
Addendum entered by Kiara Kauffman RN 08/17/25 04:10: RN ultimately outreached the hospitalist regarding the tylenol issue with pharmacy to request a one time order. Per hospitalist, the plan is to dc the PRN tylenol order and remain with the scheduled order. RN called [facility] back and asked that they change the scheduled tylenol dose from pending to verified/active and retime it to be given at 0430 as the pt is still reporting continued pain. Original Note: RN called pharmacy at 0323 to try and get the scheduled tyelenol dose verified and available to be given as the pt continues to cry/moan out in discomfort. Per pharmacy the pt's scheduled order conflicts with her availability to get PRN tylenol as it will put her over the 3G threshold. RN offered to ask the hospitalist to cancel/dc the PRN tylenol order and allow the scheduled tylenol ordrer to remain in place but pharmacy interrupted and stated they would place a 1 time tylenol order to be given now and then they can rectify their concerns in the morning. RN has yet to see a one time tylenol dose go in, pt still visibly uncomfortable and RN will medicate at this time with PRN tylenol available for continued pain despite all previous medication administration approaches.
[2025-08-17 04:51] LABS: Hematocrit 40.1 % (37.0-47.0); Hemoglobin 14.8 g/dl (12.0-16.0); Imm Gran Abs Auto 0.08 X10*3/uL (0.00-0.03); Imm Gran Pct Auto 1.1 % (0.0-0.4); Lymphocytes Absolute Auto 1.5 X10*3/uL (1.2-4.9); Mean Corpuscular HGB Conc 36.9 g/dl (31.0-35.0); Mean Corpuscular Hemoglobin 33.6 pg (27.0-33.0); Mean Corpuscular Volume 91.1 fL (80.0-98.0); NRBC Abs Auto 0.000 X10*3/uL (0.0-0.012); NRBC Pct Auto 0.0 /100WBC (0.0-0.2); Platelet Count 96 X10*3/uL (160-400); Red Blood Count 4.40 X10*6/uL (4.20-5.50); White Blood Count 7.4 X10*3/uL (4.8-10.8)
[2025-08-17 04:52] LABS: MANUAL DIFF FLAG SCAN
[2025-08-17 04:57] LABS: Alanine Aminotransferase 45 U/L (0-31); Albumin Level 4.2 g/dL (3.5-5.0); Alkaline Phosphatase 91 U/L (39-117); Anion Gap 15 (12-20); Aspartate Amino Transferase 49 U/L (5-31); Blood Urea Nitrogen 14 mg/dL (9-16); Calcium 9.3 mg/dL (8.4-10.2); Carbon Dioxide 25 mmol/L (22-29); Chloride 103 mmol/L (96-108); Creatinine Clr Calc Pharmacy 59.2; Estimated Glomerular Filt Rate 59; Potassium 3.2 mmol/L (3.3-5.1); Sodium 140 mmol/L (135-145); Total Protein 6.7 g/dL (6.5-8.0)
[2025-08-17 04:58] LABS: Parathyroid Hormone Intact 144.2 pg/mL (8.7-77.1)
--- NOTE | 2025-08-17 05:25 | HO.NURTONUR ---
55 yo female with an intellectual disability presented tearful today with her mother for reports of abdominal pain and decreased ostomy output. The pt reports generalized pain, mom states the ostomy output is typically peanut butter consistency however states that that past couple days has been more liquid in nature and less formed. The pt has a #20 to the right AC and Right hand, both of them work well. The pt currently has LR up and running at 100ml/hr through her right hand IV. Staff have been having great difficulty managing the pt's pain and trying to keep her comfortable despite different medication tactics/modalities applied. She is unable to have narcotics as they are noted to cause her to stop breathing, so she has been getting IV Toradol, Diazepam, and IV/PO Tylenol but it does not seem to be touching her pain. Although the pt has a history of cholecystecomy, her CT scan showed that intra and extrahepatic biliary ductal dilitation. GI consulted and a MRCP was recommended, pt is currently on a NPO diet, has onlybeen drinking water to assit with med consumption. Pt and mom at bedside just called RN to bedside to report continued 10/10 pain despite recent 1 time order of Toradol and scheduled APAP 650mh.The pt is able to make her needs known, has been utilizing a purewick per mom's request as she is noted to be incontinent.
[2025-08-17 05:52] VITALS: BMI 30.4
[2025-08-17 06:00] VITALS: BP 142/83; PULSE 87; RESP 18; TEMP 36.6; O2SAT 96
[2025-08-17] MEDS: PHENobarb/Hyoscy/Atropine/Scop 10 ML ELIXIR 5 ML PO (06:10)
--- NOTE | 2025-08-17 07:20 | P.PNIM_ITS ---
Subjective Subjective Date of Service: 08/17/25 Physical Exam 2 Vital Signs: Vital Signs: Last Vital Signs Temp 97.8 F 08/17/25 06:00 Pulse 87 08/17/25 06:00 Resp 18 08/17/25 06:00 BP 142/83 H 08/17/25 06:00 Pulse Ox 96 08/17/25 06:00 O2 Del Method Room Air 08/17/25 06:00 BMI result Body Mass Index 30.4 Objective Data Active Medications Acetaminophen (Acetaminophen 325 Mg Tablet) 650 mg PO Q6H [facility] Stop: 08/18/25 10:31 Last Admin: 08/17/25 04:14 Dose: 650 mg Documented By: ELLIS Calcium Carbonate (Calcium Carbonate 750 Mg Tab.Chew) 750 mg PO Q4H PRN PRN Reason: Heartburn Docusate Sodium (Docusate Sodium 100 Mg Capsule) 100 mg PO BID [facility] Enoxaparin Sodium (Enoxaparin Sodium 40 Mg/0.4 Ml Syringe) 40 mg SUBCUT Q24H [facility] Lactated Ringer's (Lr) 1,000 mls @ 100 mls/hr IVCONT .Q10H [facility] Last Admin: 08/17/25 02:37 Dose: 100 mls/hr Documented By: ELLIS Ketorolac Tromethamine (Ketorolac Tromethamine 15 Mg/Ml Vial) 15 mg IVPUSH Q6H PRN PRN Reason: Pain, Moderate(Pain Scale 4-6) Magnesium Hydroxide (Milk Of Magnesia 30 Ml Oral.Susp) 30 ml PO DAILY PRN PRN Reason: Constipation Last Admin: 08/17/25 02:37 Dose: 30 ml Documented By: ELLIS Melatonin (Melatonin 3 Mg Tablet) 6 mg PO BEDTIME PRN PRN Reason: Insomnia Ondansetron HCl (Ondansetron Hcl 4 Mg/2 Ml Vial) 4 mg IVPUSH Q8H PRN PRN Reason: Nausea and Vomiting Polyethylene Glycol (Polyethylene Glycol 3350 17 Gm Powd.Pack) 17 gm PO BID [facility] Last Admin: 08/17/25 02:37 Dose: 17 gm Documented By: ELLIS Senna (Sennosides 8.6 Mg Tablet) 17.2 mg PO BEDTIME [facility] Sodium Chloride (0.9 % Sodium Chloride Flush 3 Ml Syringe) 3 ml IVFLUSH QSHIFT [facility] Labs 08/17/25 04:32 08/17/25 04:32 Labs: Laboratory Results - last 24 hr 08/16/25 08/16/25 08/16/25 19:49 19:50 22:17 MCV 92.4 MCH 33.0 MCHC 35.7 H RDW 12.5 Plt Count 104 L D MPV 11.7 Immature Gran % (Auto) 0.7 H Neut % (Auto) 73.4 H Lymph % (Auto) 18.7 L [place] % (Auto) 6.7 Eos % (Auto) 0.3 Baso % (Auto) 0.2 Lymph # (Auto) 1.9 [place] # (Auto) 0.7 Eos # (Auto) 0.0 Baso # (Auto) 0.0 Abs Immat Gran (auto) 0.07 H Absolute Neuts (auto) 7.4 Absolute Nucleated RBC 0.000 Nucleated RBC % (auto) 0.0 Smear Tech's Comments VERIFIED PT 11.8 INR 1.0 Anion Gap 18 Estim Creat Clear Calc 51.9 Estimated GFR 51 Random Glucose 170 H Lactic Acid 2.9 H* Lactic Acid F/U @ 2Hr 2.6 H* Lactic Acid F/U @ 4Hr Calcium 10.6 H Magnesium 2.0 Total Bilirubin 0.6 Direct Bilirubin 0.2 AST 23 ALT 15 Alkaline Phosphatase 100 Total Protein 8.3 H Albumin 5.1 H Lipase 29 25-OH Vitamin D Total 38.0 PTH Intact Urine Color Yellow Urine Appearance Clear Urine pH 6.5 Ur Specific [place] 1.010 Urine Protein 30 (1+) H Urine Glucose (UA) Negative Urine Ketones Negative Urine Blood Negative Urine Nitrite Negative Ur Leukocyte Esterase Trace H Urine RBC 0-2 Urine WBC 6-10 H Ur Squamous Epith Cells 6-10 Urine Bacteria Trace Hyaline Casts 0-2 08/17/25 08/17/25 00:39 04:32 MCV 91.1 MCH 33.6 H MCHC 36.9 H RDW 12.4 Plt Count 96 L MPV 11.0 Immature Gran % (Auto) 1.1 H Neut % (Auto) 67.7 Lymph % (Auto) 20.7 [place] % (Auto) 8.9 Eos % (Auto) 0.9 Baso % (Auto) 0.7 Lymph # (Auto) 1.5 [place] # (Auto) 0.7 Eos # (Auto) 0.1 Baso # (Auto) 0.1 Abs Immat Gran (auto) 0.08 H Absolute Neuts (auto) 5.0 Absolute Nucleated RBC 0.000 Nucleated RBC % (auto) 0.0 Smear Tech's Comments VERIFIED PT INR Anion Gap 15 Estim Creat Clear Calc 59.2 Estimated GFR 59 Random Glucose 134 H Lactic Acid Lactic Acid F/U @ 2Hr Lactic Acid F/U @ 4Hr Cancelled Calcium 9.3 D Magnesium Total Bilirubin 0.7 Direct Bilirubin AST 49 H ALT 45 H Alkaline Phosphatase 91 Total Protein 6.7 Albumin 4.2 Lipase 25-OH Vitamin D Total PTH Intact 144.2 H Urine Color Urine Appearance Urine pH Ur Specific [place] Urine Protein Urine Glucose (UA) Urine Ketones Urine Blood Urine Nitrite Ur Leukocyte Esterase Urine RBC Urine WBC Ur Squamous Epith Cells Urine Bacteria Hyaline Casts Quality Stroke Does the patient have a stroke diagnosis?: No VTE Prior VTE?: No VTE Risk Level:: Medical - moderate - high VTE Device Contraindication: Treatment Not Indicated VTE Drug Contraindication: N/A - Med Ordered
[2025-08-17 07:51] VITALS: BP 152/79; PULSE 95; RESP 12; TEMP 36.3; O2SAT 96
--- NOTE | 2025-08-17 11:01 | PM.GICN ---
History of Present Illness Data of Consult Service Date: 08/17/25 Requesting physician: Ronaldo Veras Primary Care Provider: Marc Longo III, MD HPI Reason for consult: abd pain, dilated CBD This is a 55-year-old female with past medical history of cognitive delay, PTSD, mood disorder, nicotine dependence, COPD, history of colostomy placement due to complication after cholecystectomy, who was brought to the hospital for severe abdominal pain. History was obtained from the mother, as patient was agitated at the time of evaluation. Mother reports the patient lives with her boyfriend, and reportedly had decreased appetite and inability to eat food for the last 2-3 days with severe pain yesterday morning. She also has not been able to have good output in her ostomy. Family's main concern was bowel obstruction but CT with contrast without any SBO. Gastroenterology was consulted for dilated CBD to 15 mm noted on the CT. Mother reports that she has had chronic finding of dilated CBD since her cholecystectomy. Previous imaging not available for comparison. Labs with normal LFTs. Review of Systems Review of Systems: Yes Unobtainable due to mental status PMFSH Past Medical History Medical History Adjustment disorder with mixed disturbance of emotions and conduct in remission CKD stage G3b/A1, GFR 30-44 and albumin creatinine ratio <30 mg/g Marijuana use Tobacco dependence HLD (hyperlipidemia) Constipation Asthma ERIN (iron deficiency anemia) GERD (gastroesophageal reflux disease) HTN (hypertension) Anxiety Intellectual disability Acute adjustment disorder with mixed disturbance of emotions and conduct PTSD (post-traumatic stress disorder) MDD (major depressive disorder), recurrent severe, without psychosis Surgical History Surgical History Hx of cholecystectomy Previous back surgery Social History Social History Household Members: Significant Other Household Members Other:: roomate Housing: Apartment Do you presently have visiting nurse or other home services: Yes ([employer] services - 5 days week for 2 hours a day) Comment: 5 minute checks Patient Tobacco Use Status: Current everyday Tobacco user Tobacco use type: Cigarette Cigarette Packs Per Day: 1 Cigarettes Per Day: 20.0 e-Cigarette/Vaping Use: Never Used Second Hand Smoke Exposure: No Substance Use Type: Marijuana Advance Directives Date on File: 02/09/25 service: No Sexual orientation: Straight/Heterosexual Meds Allergies Allergy/AdvReac Type Severity Reaction Status Date / Time Opioids - Morphine Analogues Allergy Severe NAUSEA, Verified 08/16/25 19:17 (OPIOIDS - MORPHINE HIVES, ANALOGUES) STOPS BREATHING Active Medications: Current Medications Acetaminophen (Acetaminophen 325 Mg Tablet) 650 mg PO Q6H [facility] Stop: 08/18/25 10:31 Last Admin: 08/17/25 10:14 Dose: 650 mg Calcium Carbonate (Calcium Carbonate 750 Mg Tab.Chew) 750 mg PO Q4H PRN PRN Reason: Heartburn Docusate Sodium (Docusate Sodium 100 Mg Capsule) 100 mg PO BID [facility] Last Admin: 08/17/25 07:49 Dose: 100 mg Enoxaparin Sodium (Enoxaparin Sodium 40 Mg/0.4 Ml Syringe) 40 mg SUBCUT Q24H [facility] Last Admin: 08/17/25 07:49 Dose: 40 mg Lactated Ringer's (Lr) 1,000 mls @ 100 mls/hr IVCONT .Q10H [facility] Last Admin: 08/17/25 02:37 Dose: 100 mls/hr Ketorolac Tromethamine (Ketorolac Tromethamine 15 Mg/Ml Vial) 15 mg IVPUSH Q6H PRN PRN Reason: Pain, Moderate(Pain Scale 4-6) Magnesium Hydroxide (Milk Of Magnesia 30 Ml Oral.Susp) 30 ml PO DAILY PRN PRN Reason: Constipation Last Admin: 08/17/25 02:37 Dose: 30 ml Melatonin (Melatonin 3 Mg Tablet) 6 mg PO BEDTIME PRN PRN Reason: Insomnia Ondansetron HCl (Ondansetron Hcl 4 Mg/2 Ml Vial) 4 mg IVPUSH Q8H PRN PRN Reason: Nausea and Vomiting Polyethylene Glycol (Polyethylene Glycol 3350 17 Gm Powd.Pack) 17 gm PO BID [facility] Last Admin: 08/17/25 07:49 Dose: 17 gm Senna (Sennosides 8.6 Mg Tablet) 17.2 mg PO BEDTIME [facility] Sodium Chloride (0.9 % Sodium Chloride Flush 3 Ml Syringe) 3 ml IVFLUSH QSHIFT [facility] Last Admin: 08/17/25 07:52 Dose: Not Given Home Medications ?Medication ?Instructions ?Recorded ?Confirmed ?Last Taken ?Type atorvastatin 10 mg tablet 10 mg PO BEDTIME 02/18/25 08/17/25 08/15/25 History folic acid 1 mg tablet 1 mg PO DAILY 02/18/25 08/17/25 08/16/25 History metoprolol succinate 25 mg 25 mg PO DAILY 02/18/25 08/17/25 08/16/25 History tablet,extended release 24 hr sennosides 8.6 mg tablet (senna) 8.6 mg PO BID 02/18/25 08/17/25 08/16/25 History hydrochlorothiazide 25 mg tablet 25 mg PO DAILY 03/11/25 08/17/25 08/16/25 History hydroxyzine HCl 25 mg tablet 50 mg PO TID PRN mild anxiety 03/11/25 08/17/25 03/11/25 11:00 History risperidone 0.5 mg tablet 1 mg PO BEDTIME 03/11/25 08/17/25 08/15/25 History trazodone 100 mg tablet 125 mg PO BEDTIME 03/11/25 08/17/25 08/15/25 History amlodipine 5 mg tablet 7.5 mg PO DAILY 08/17/25 08/17/25 08/16/25 History cyanocobalamin (vitamin B-12) 2,000 mcg PO DAILY 08/17/25 08/17/25 08/16/25 History 1,000 mcg tablet,extended release (Vitamin B-12 ER) dicyclomine 10 mg capsule 10 mg PO BEDTIME 08/17/25 08/17/25 08/15/25 History dicyclomine 10 mg capsule 10 mg PO BIDWM 08/17/25 08/17/25 08/16/25 History nystatin 100,000 unit/gram topical 1 appl topical DAILY 08/17/25 08/17/25 Unknown History powder omeprazole 40 mg capsule,delayed 40 mg PO BID@0630,1630 08/17/25 08/17/25 08/16/25 History release Physical Exam Exam: Exam: pt agitated and did not allow for physical exam Vital Signs: Vital Signs: Last Vital Signs Temp 97.4 F 08/17/25 07:51 Pulse 95 08/17/25 07:51 Resp 12 08/17/25 07:51 BP 152/79 H 08/17/25 07:51 Pulse Ox 96 08/17/25 07:51 O2 Del Method Room Air 08/17/25 07:51 BMI result Body Mass Index 30.4 Results Labs 08/17/25 04:32 08/17/25 04:32 Labs: Short CBC 08/16/25 08/17/25 Range/Units 19:49 04:32 WBC 10.1 7.4 (4.8-10.8) X10*3/uL Hgb 16.1 H 14.8 (12.0-16.0) g/dl Hct 45.1 40.1 (37.0-47.0) % Plt Count 104 L D 96 L (160-400) X10*3/uL BMP 08/16/25 08/17/25 19:49 04:32 Sodium 139 140 Potassium 3.1 L 3.2 L Chloride 95 L 103 Carbon Dioxide 29 25 BUN 21 H 14 Creatinine 1.12 0.98 Calcium 10.6 H 9.3 D Liver Function 08/16/25 08/17/25 Range/Units 19:49 04:32 Total Bilirubin 0.6 0.7 (0.0-1.0) mg/dL Direct Bilirubin 0.2 (0.0-0.5) mg/dL AST 23 49 H (5-31) U/L ALT 15 45 H (0-31) U/L Alkaline Phosphatase 100 91 (39-117) U/L Albumin 5.1 H 4.2 (3.5-5.0) g/dL Urine 08/16/25 Range/Units 19:50 Urine Color Yellow Urine Appearance Clear Urine pH 6.5 (5.0-9.0) Ur Specific [place] 1.010 (1.005-1.025) Urine Protein 30 (1+) H (Neg-Trace) mg/dL Urine Glucose (UA) Negative (Negative) mg/dL Assessment and Plan (1) Dilated cbd, acquired: Status: Acute (2) Abdominal pain: Status: Acute Plan Overall presentation consistent with abdominal pain likely from severe constipation. The finding of dilated CBD appears to be incidental especially given nonobstructive LFTs. Plan: -bowel regimen -clear liquids only until patient has regular bowel movements -MRCP for further evaluation UPDATE: MRCP reviewed. No CBD stone however appearance suspicious for SOD vs distal stricture. Pt quite agitated at bedside, declines any further testing in the hospital and wants to go home so she can smoke cigarettes and marijuana . Discussed with mom that no emergent intervention indicated at this time but to follow up with her outpatient GI to discuss this further as may need repeat imaging vs ERCP. Procedures Date of Service Date of Service: 08/17/25
--- NOTE | 2025-08-17 11:28 | MHC.CM.PN ---
IMM DELIVERED PT LIVES WITH A ROOMMATE. PT NOW LIVES AT [address] [place] [address]. PT IS FUNCTIONALLY INDEPENDENT BUT NEEDS FAMILY SUPPORT AT TIMES. HAS [employer] TE[employer] HELP 3 HRS/DAILY VIA [facility]. NO DME. + HCP PCP DR. Juan GARCIA DP: HOME WITH RESUMPTION OF [employer] TE[employer] ASSIST IS THE GOAL. PT'S MOTHER WILL TRANSPORT HOME. CM WILL CONTINUE TO FOLLOW FOR ANY CHANGE TO DC PLAN/NEEDS.
--- NOTE | 2025-08-17 11:58 | PHA.MEDREC ---
Addendum entered by Heather Elizabeth RPh 08/17/25 12:31: Mother was able to confirm that pt is still taking amlodipine 7.5 mg daily. Med rec updated. Original Note: Pharmacy Consult ? Medication Reconciliation Pharmacy has completed the medication reconciliation. Spoke to mother Isadora at bedside who said patient fills her medications at [facility] ([facility]) and what they fill currently is what patient is taking. Unable to confirm if patient is still taking amlodipine because last fill was 07/12/25 for 30 day supply and mother is not sure if patient is still taking it, will have to follow up later with pharmacy or PCP. Last dose of medications was yesterday 08/16/25 afternoon.
[2025-08-17 15:27] VITALS: PULSE 108; RESP 18; TEMP 36.6; O2SAT 94
[2025-08-17] MEDS: diazePAM 10 MG/2 ML CARTRIDGE 2.5 MG IVPUSH (16:00)
--- NOTE | 2025-08-17 16:21 | P.DS_ITS ---
DS: Providers Provider Date of Service: 08/17/25 Date of admission: 08/17/25 01:50 Date of discharge: 08/17/25 Primary care physician: Marc Longo III, MD Consults: 08/17/25 02:00 Consult to Gastroenterology Routine Consulting Provider: [facility] G[facility]ology Services Reason for consultation: Dilated CBD, Abd pain, need for MRCP ?! DS: Diagnosis Discharge Diagnosis (1) Colostomy in place: Status: Acute (2) Dilated cbd, acquired: Status: Acute DS: Summary Hospital Course Hospital Course: Per HPI:a 55-year-old female with a history of cognitive delay, PTSD, mood disorder, iron-deficiency anemia, asthma, COPD on oxygen, chronic kidney disease, hypertension, hyperlipidemia, GERD, and colostomy (placed in January after bowel perforation during cholecystectomy last year), who presents with severe generalized abdominal pain. The patient reports decreased appetite over the past three days and worsening abdominal pain since this morning, rated 10/10 in intensity, associated with nausea and decreased ostomy output. She denies fever, chills, or vomiting. In the ED, labs were reassuring with normal liver function tests. CT abd omen/pelvis revealed moderate constipation and a dilated common bile duct measuring up to 15 mm. GI was consulted and recommended admission for further evaluation with MRCP in the morning. The patient is hemodynamically stable and will be admitted for pain management, monitoring, and continued workup. Hospital course: 55-year-old female with a history of cognitive delay, PTSD, mood disorder, ir on-deficiency anemia, asthma, COPD on oxygen, chronic kidney disease, hypertension, hyperlipidemia, GERD, and colostomy (placed in January after bowel perforation during cholecystectomy last year), who presents with severe generalized abdominal pain. Abdominal pain likely secondary to transient acquired CBD dilation likely due to sphincter of Oddi dysfunction. GI was consulted, underwent MRCP on 08/17/2025, did not note any CT showing significant constipation and dilatation of CBD , patient had good output from her colostomy bag, hence constipation was deemed less likely. However we are discharging her on MiraLax, senna, Colace p.r.n. to help relieve the constipation. Also her LFTs had resolved completely and they were normal the very next day likely also suggesting a transient SOD dysfunction. Acute lactic acidosis -likely secondary to hypovolemia, less likely secondary to sepsis. Resolved with IV fluids Acute hypokalemia-likely 2/2 Thiazides; replacement given No further episodes noted Acute Hypercalcemia --likely related to Thiazides; Checked PTH and Vit D3- outpatient follow-up COPD -not in acute exacerbation, continue home meds GERD -Omerpazole Mood disorder-Risperidone , Trazodone and Sertraline .prn Atarax . Patient continued to need escalating doses of Ativan for agitation occasionally. HTN, HLD-Metoprolol, HCT, Clonidine and Atorvastatin DVT PPx: Lovenox Code status: Full code Patient's mom who is the healthcare proxy has been spoken to at length and I explained to her that her abdominal pain has been relieved, there is no obstruction, colostomy output appears to be good hence relieved of any constipation that the mother is concerned about. I assured her that we are not trying to get the patient out and that we have addressed the presenting sym ptoms. Mother understands and agreed to take the patient home and she will resume care by [facility] as outpatient settings. Time spent discussing smoking cessation with patient: more than 10 minutes Time Attestation Discharge Coordination Time (in mins): 55 Quality: Safe Use of Opioids Does Pt have an Active Cancer Diagnosis on the Problem List?: No Quality: Stroke Does the patient have a stroke diagnosis?: No Physical Exam Vital Signs: Vital Signs: Last Vital Signs Temp 97.8 F 08/17/25 15:27 Pulse 108 H 08/17/25 15:27 Resp 18 08/17/25 15:27 BP 152/79 H 08/17/25 07:51 Pulse Ox 94 08/17/25 15:27 O2 Del Method Room Air 08/17/25 15:27 BMI result Body Mass Index 30.4 DS: Data Data Completed and Pending Labs on day of discharge: Laboratory Results - last 24 hr 08/16/25 08/16/25 08/16/25 19:49 19:50 22:17 WBC 10.1 RBC 4.88 Hgb 16.1 H Hct 45.1 MCV 92.4 MCH 33.0 MCHC 35.7 H RDW 12.5 Plt Count 104 L D MPV 11.7 Immature Gran % (Auto) 0.7 H Neut % (Auto) 73.4 H Lymph % (Auto) 18.7 L [place] % (Auto) 6.7 Eos % (Auto) 0.3 Baso % (Auto) 0.2 Lymph # (Auto) 1.9 [place] # (Auto) 0.7 Eos # (Auto) 0.0 Baso # (Auto) 0.0 Abs Immat Gran (auto) 0.07 H Absolute Neuts (auto) 7.4 Absolute Nucleated RBC 0.000 Nucleated RBC % (auto) 0.0 Smear Tech's Comments VERIFIED PT 11.8 INR 1.0 Sodium 139 Potassium 3.1 L Chloride 95 L Carbon Dioxide 29 Anion Gap 18 BUN 21 H Creatinine 1.12 Estim Creat Clear Calc 51.9 Estimated GFR 51 Random Glucose 170 H Lactic Acid 2.9 H* Lactic Acid F/U @ 2Hr 2.6 H* Lactic Acid F/U @ 4Hr Calcium 10.6 H Magnesium 2.0 Total Bilirubin 0.6 Direct Bilirubin 0.2 AST 23 ALT 15 Alkaline Phosphatase 100 Total Protein 8.3 H Albumin 5.1 H Lipase 29 25-OH Vitamin D Total 38.0 PTH Intact Urine Color Yellow Urine Appearance Clear Urine pH 6.5 Ur Specific [place] 1.010 Urine Protein 30 (1+) H Urine Glucose (UA) Negative Urine Ketones Negative Urine Blood Negative Urine Nitrite Negative Ur Leukocyte Esterase Trace H Urine RBC 0-2 Urine WBC 6-10 H Ur Squamous Epith Cells 6-10 Urine Bacteria Trace Hyaline Casts 0-2 08/17/25 08/17/25 00:39 04:32 WBC 7.4 RBC 4.40 Hgb 14.8 Hct 40.1 MCV 91.1 MCH 33.6 H MCHC 36.9 H RDW 12.4 Plt Count 96 L MPV 11.0 Immature Gran % (Auto) 1.1 H Neut % (Auto) 67.7 Lymph % (Auto) 20.7 [place] % (Auto) 8.9 Eos % (Auto) 0.9 Baso % (Auto) 0.7 Lymph # (Auto) 1.5 [place] # (Auto) 0.7 Eos # (Auto) 0.1 Baso # (Auto) 0.1 Abs Immat Gran (auto) 0.08 H Absolute Neuts (auto) 5.0 Absolute Nucleated RBC 0.000 Nucleated RBC % (auto) 0.0 Smear Tech's Comments VERIFIED PT INR Sodium 140 Potassium 3.2 L Chloride 103 Carbon Dioxide 25 Anion Gap 15 BUN 14 Creatinine 0.98 Estim Creat Clear Calc 59.2 Estimated GFR 59 Random Glucose 134 H Lactic Acid Lactic Acid F/U @ 2Hr Lactic Acid F/U @ 4Hr Cancelled Calcium 9.3 D Magnesium Total Bilirubin 0.7 Direct Bilirubin AST 49 H ALT 45 H Alkaline Phosphatase 91 Total Protein 6.7 Albumin 4.2 Lipase 25-OH Vitamin D Total PTH Intact 144.2 H Urine Color Urine Appearance Urine pH Ur Specific [place] Urine Protein Urine Glucose (UA) Urine Ketones Urine Blood Urine Nitrite Ur Leukocyte Esterase Urine RBC Urine WBC Ur Squamous Epith Cells Urine Bacteria Hyaline Casts Preliminary micro results at discharge 08/16/25 Unknown Urine Culture - Preliminary Urine clean catch - Clean Catch Midstream No growth to date. Discharge Plan Discharge Anticipated Discharge Date/Time: 08/17/25 16:16 Patient Disposition: Home, Self-Care Discharge Diagnosis: Possible sphincter of Oddi obstruction causing transient CBD dilation, ruled out MRCP Referrals: Marc Longo III, MD [Primary Care Provider, Medical] - 1 Week Discharge Medications: New polyethylene glycol 3350 17 gram Powder In Packet 17 g PO BID 30 Days Qty: 14 0RF Continued ferrous sulfate [FeroSul] 325 mg (65 mg iron) tablet 325 mg PO DAILY 30 Days Qty: 30 0RF Rx Instructions: with breakfast albuterol sulfate 90 mcg/actuation HFA aerosol inhaler 2 puff inhalation Q4H PRN (Reason: Wheezing) 30 Days Qty: 1 0RF sennosides [senna] 8.6 mg Tablet 8.6 mg PO BID atorvastatin 10 mg Tablet 10 mg PO BEDTIME folic acid 1 mg Tablet 1 mg PO DAILY metoprolol succinate 25 mg Tablet Extended Release 24 Hr 25 mg PO DAILY sertraline 100 mg tablet 150 mg PO DAILY 30 Days Qty: 45 0RF hydrochlorothiazide 25 mg tablet 25 mg PO DAILY trazodone 100 mg tablet 125 mg PO BEDTIME hydroxyzine HCl 25 mg tablet 50 mg PO TID PRN (Reason: mild anxiety) risperidone 0.5 mg tablet 1 mg PO BEDTIME cyanocobalamin (vitamin B-12) [Vitamin B-12] 1,000 mcg tablet extended release 2,000 mcg PO DAILY omeprazole 40 mg capsule,delayed release(DR/EC) 40 mg PO BID@0630,1630 dicyclomine 10 mg capsule 10 mg PO BIDWM nystatin 100,000 unit/gram powder 1 appl topical DAILY amlodipine 5 mg tablet 7.5 mg PO DAILY dicyclomine 10 mg Capsule 10 mg PO BEDTIME Discharge Orders: Discharge Order (Routine); Ordered 08/17/25 Ordered By: Dori Soriano Diet: Low salt diet Activity on Discharge: As tolerated Stand Alone Forms: Patient Portal Discharge page Print Language: Korean Care Plan Goals: Patient to continue following with outpatient support system, PCP, [facility] assist Patient to seek outpatient GI care for her possible sphincter of Oddi dysfunction Mother had a concern about constipation-patient is to get MiraLax and follow-up with surgery for colostomy bag care Health Concerns: See above Plan of Treatment: See above Assessment: See above
--- NOTE | 2025-08-19 07:26 | PM.EVENT ---
Event Note Date of Service: 08/19/25 Event Note: The a.m. of 08/19/2025, the lab notified be of 1 out of the 2 sets of blood cultures being positive for g positive rods. Notified mother Swathi over the phone in the presence of my colleagues , , and Malena and left a voice message. I notified them that she can me by calling the hospital and she can ask for . Time Spent With Patient Time: Total time managing care of this patient today ____ minutes.
== END 2025-08-17 16:26 | disposition home or self-care (01) | DRG 445 ==
LOC: HO.ED 08-17 01:40 → HO.EDOVER 08-17 02:09 → HO.S3 08-17 05:15
PROVIDERS: Physician Assistant; Admitting Provider Student in an Organized Health Care Education/Training Program; Emergency Provider Emergency Medicine; PCP Internal Medicine; Visit Provider Student in an Organized Health Care Education/Training Program
DX: K83.4 Spasm of sphincter of Oddi (principal); E87.21 Acute metabolic acidosis; F17.210 Nicotine dependence, cigarettes, uncomplicated; Z71.6 Tobacco abuse counseling; E87.6 Hypokalemia; J44.9 Chronic obstructive pulmonary disease, unspecified; Z99.81 Dependence on supplemental oxygen; K59.00 Constipation, unspecified; E86.0 Dehydration; E86.1 Hypovolemia; K21.9 Gastro-esophageal reflux disease without esophagitis; F39 Unspecified mood [affective] disorder; I10 Essential (primary) hypertension; E78.5 Hyperlipidemia, unspecified; E83.52 Hypercalcemia; T50.2X5A Adverse effect of carbonic-anhydrase inhibitors, benzothiadiazides and other diuretics, initial encounter; Z93.3 Colostomy status; Z79.899 Other long term (current) drug therapy
CPT/HCPCS: 36415; 71045; 74177; 74181; 80048; 80053; 80076; 81001; 82306; 83605; 83690; 83735; 83970; 85025; 85610; 87040; 87086; 87205; 93005; 99285; J0131; J1650; J1885; J2405; J3360; J7120; Q9967

== ENCOUNTER → 2025-08-16 19:22 | Outpatient (BNV) | payer MEDICARE, MEDICAID, SELFPAY | PROVIDERS: Admitting Provider Student in an Organized Health Care Education/Training Program; Emergency Provider Emergency Medicine; PCP Internal Medicine; Visit Provider Internal Medicine Cardiovascular Disease | DX: R00.0 Tachycardia, unspecified (principal) | CPT/HCPCS: 93010 ==

== ENCOUNTER → 2025-08-16 22:30 | Outpatient (BNV) | payer MEDICARE, MEDICAID, SELFPAY | PROVIDERS: Emergency Provider Emergency Medicine; PCP Internal Medicine; Visit Provider Radiology Diagnostic Radiology | DX: K83.8 Other specified diseases of biliary tract (principal); R05.9 Cough, unspecified | CPT/HCPCS: 71045; 74177 ==

== ENCOUNTER 2025-08-17 01:50 | Outpatient (BNV) | payer MEDICARE, MEDICAID, SELFPAY | END 2025-08-17 12:52 | PROVIDERS: Admitting Provider Student in an Organized Health Care Education/Training Program; Emergency Provider Emergency Medicine; PCP Internal Medicine; Visit Provider Radiology Diagnostic Radiology | DX: K83.8 Other specified diseases of biliary tract (principal); D35.01 Benign neoplasm of right adrenal gland; D35.02 Benign neoplasm of left adrenal gland | CPT/HCPCS: 74181 ==

== ENCOUNTER → 2025-08-17 01:50 | Outpatient (BNV) | payer MEDICARE, MEDICAID, SELFPAY | PROVIDERS: Admitting Provider Student in an Organized Health Care Education/Training Program; Emergency Provider Emergency Medicine; PCP Internal Medicine; Visit Provider Internal Medicine | DX: K83.8 Other specified diseases of biliary tract (principal); R10.9 Unspecified abdominal pain | CPT/HCPCS: 99222 ==

== ENCOUNTER → 2025-08-17 01:50 | Outpatient (BNV) | payer MEDICARE, MEDICAID, SELFPAY | PROVIDERS: Admitting Provider Student in an Organized Health Care Education/Training Program; Emergency Provider Emergency Medicine; PCP Internal Medicine; Visit Provider Student in an Organized Health Care Education/Training Program | DX: Z93.3 Colostomy status (principal); R10.9 Unspecified abdominal pain; E87.6 Hypokalemia; E83.52 Hypercalcemia; K83.8 Other specified diseases of biliary tract; E87.21 Acute metabolic acidosis | CPT/HCPCS: 99235; 99499 ==

== ENCOUNTER 2025-08-25 16:32 | Emergency (ER) | payer MEDICARE, MEDICAID, SELFPAY ==
--- NOTE | ~2025-08-25 | CT_ITS ---
CLINICAL HISTORY: Abdominal Pain CT abdomen and pelvis with contrast Comparison: CT/REG/SR - CT ABDOMEN PELVIS W IV CON - 08/16/25 22:45 EST Findings: Significant respiratory motion. Partially visualized heart and lung bases are unremarkable. Stable appearance of multiple hepatic cysts. Liver otherwise unremarkable. Stable degree of intrahepatic and extrahepatic biliary dilation, with the common bile duct measuring 1.4 cm. No radiopaque biliary stones or ampullary masses are seen. Finding possibly related to post cholecystectomy. Cholecystectomy. Pancreas and spleen are unremarkable. Stable small bilateral adrenal nodules. The kidneys are unremarkable. No urolithiasis. 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 The cecum is deep within the pelvis. No bowel obstruction, pneumoperitoneum, or pneumatosis. Appendix not visualized and no secondary signs of acute appendicitis. Urinary bladder underdistended, limiting evaluation. Uterus and adnexa unremarkable. No pathologically enlarged lymph nodes or abdominopelvic free fluid. Osseous structures are unremarkable. IMPRESSION: Left hemicolectomy and left lower quadrant colostomy. No acute findings in the gastrointestinal tract. Stable degree of intrahepatic and extrahepatic biliary tree dilation without radiopaque biliary tree stones or ampullary mass is visualized. May be seen post cholecystectomy. If concern for acute biliary obstruction, consider MRCP or ERCP. No significant change from 08/16/2025 CT. This document has been electronically signed by: Domo Rousseau MD on 08/25/2025 21:31:59
[2025-08-25 16:44] VITALS: BP 140/80; BP 150/91; PULSE 83; PULSE 90; RESP 20; TEMP 36.6; O2SAT 94; O2SAT 97; BMI 32.1
[2025-08-25 17:10] LABS: MANUAL DIFF FLAG NO
[2025-08-25 17:13] LABS: Appearance Urine Clear; Glucose Urine UA Negative (Negative); PH 6.5 (5.0-9.0); Specific Gravity - Urine 1.015 (1.005-1.025); UMIC TRIGGER UACC YES
[2025-08-25 17:15] LABS: Hematocrit 43.8 % (37.0-47.0); Hemoglobin 15.3 g/dl (12.0-16.0); Imm Gran Abs Auto 0.05 X10*3/uL (0.00-0.03); Imm Gran Pct Auto 0.5 % (0.0-0.4); Lymphocytes Absolute Auto 1.5 X10*3/uL (1.2-4.9); Mean Corpuscular HGB Conc 34.9 g/dl (31.0-35.0); Mean Corpuscular Hemoglobin 33.3 pg (27.0-33.0); Mean Corpuscular Volume 95.2 fL (80.0-98.0); NRBC Abs Auto 0.000 X10*3/uL (0.0-0.012); NRBC Pct Auto 0.0 /100WBC (0.0-0.2); Red Blood Count 4.60 X10*6/uL (4.20-5.50); White Blood Count 9.2 X10*3/uL (4.8-10.8)
[2025-08-25 17:16] LABS: Platelet Count 99 X10*3/uL (160-400)
[2025-08-25 17:28] LABS: Alanine Aminotransferase 15 U/L (0-31); Albumin Level 4.9 g/dL (3.5-5.0); Alkaline Phosphatase 84 U/L (39-117); Anion Gap 15 (12-20); Aspartate Amino Transferase 20 U/L (5-31); Blood Urea Nitrogen 27 mg/dL (9-16); Calcium 10.3 mg/dL (8.4-10.2); Carbon Dioxide 27 mmol/L (22-29); Chloride 103 mmol/L (96-108); Creatinine Clr Calc Pharmacy 53.0; Estimated Glomerular Filt Rate 55; Lipase 38 U/L (8-78); Potassium 3.5 mmol/L (3.3-5.1); Sodium 141 mmol/L (135-145); Total Protein 7.7 g/dL (6.5-8.0)
--- NOTE | 2025-08-25 19:16 | ED.ABDPAIN ---
HPI - Abdominal Pain General Chief Complaint: Abdominal Pain Stated Complaint: ab pain& rerraitn1lyf. hx constipation & colostomy Time Seen by Provider: 08/25/25 18:42 History of Present Illness ED Provider: Marija Beach HPI narrative: 55-year-old female with a medical history significant for hypertension, hyperlipidemia, CKD, asthma, IgA, colitis, intellectual disability presents to the ED for evaluation reporting abdominal pain and distention ongoing for several weeks. Patient reports that she was seen about a week ago for something similar, the pain went away at that time. She now has cramping pain, 10/10, throughout the entire abdomen. Endorses poor p.o. intake. No abnormal weight loss. Some nausea without vomiting, no diarrhea. Patient does have a colostomy bag and reports that the colostomy has returned to normal, as it was abnormal consistency and smell about 1 week ago. No fever, chills. No chest pain or pressure, shortness of breath. No flank pain. No urinary complaints. Related Data Home Medications ?Medication ?Instructions ?Recorded ?Confirmed atorvastatin 10 mg tablet 10 mg PO BEDTIME 02/18/25 08/17/25 folic acid 1 mg tablet 1 mg PO DAILY 02/18/25 08/17/25 metoprolol succinate 25 mg 25 mg PO DAILY 02/18/25 08/17/25 tablet,extended release 24 hr sennosides 8.6 mg tablet (senna) 8.6 mg PO BID 02/18/25 08/17/25 hydrochlorothiazide 25 mg tablet 25 mg PO DAILY 03/11/25 08/17/25 hydroxyzine HCl 25 mg tablet 50 mg PO TID PRN mild anxiety 03/11/25 08/17/25 risperidone 0.5 mg tablet 1 mg PO BEDTIME 03/11/25 08/17/25 trazodone 100 mg tablet 125 mg PO BEDTIME 03/11/25 08/17/25 amlodipine 5 mg tablet 7.5 mg PO DAILY 08/17/25 08/17/25 cyanocobalamin (vitamin B-12) 2,000 mcg PO DAILY 08/17/25 08/17/25 1,000 mcg tablet,extended release (Vitamin B-12 ER) dicyclomine 10 mg capsule 10 mg PO BEDTIME 08/17/25 08/17/25 dicyclomine 10 mg capsule 10 mg PO BIDWM 08/17/25 08/17/25 nystatin 100,000 unit/gram topical 1 appl topical DAILY 08/17/25 08/17/25 powder omeprazole 40 mg capsule,delayed 40 mg PO BID@0630,1630 08/17/25 08/17/25 release Previous Rx's ?Medication ?Instructions ?Recorded albuterol sulfate 90 mcg/actuation 2 puff inhalation Q4H PRN Wheezing 02/07/25 aerosol inhaler 30 days #1 inhaler ferrous sulfate 325 mg (65 mg 325 mg PO DAILY 30 days #30 tabs 02/07/25 iron) tablet (FeroSul) sertraline 100 mg tablet 150 mg (1.5 x 100 mg) PO DAILY 30 02/23/25 days #45 tabs polyethylene glycol 3350 17 gram 17 g PO BID 30 days #14 ea 08/17/25 oral powder packet Allergies Allergy/AdvReac Type Severity Reaction Status Date / Time Opioids - Morphine Analogues Allergy Severe NAUSEA, Verified 08/25/25 16:47 (OPIOIDS - MORPHINE HIVES, ANALOGUES) STOPS BREATHING Review of Systems Review of Systems ROS is otherwise negative unless mentioned in HPI. [facility] Past Medical History Medical History Adjustment disorder with mixed disturbance of emotions and conduct in remission CKD stage G3b/A1, GFR 30-44 and albumin creatinine ratio <30 mg/g Marijuana use Tobacco dependence HLD (hyperlipidemia) Constipation Asthma ERIN (iron deficiency anemia) GERD (gastroesophageal reflux disease) HTN (hypertension) Anxiety Intellectual disability Acute adjustment disorder with mixed disturbance of emotions and conduct PTSD (post-traumatic stress disorder) MDD (major depressive disorder), recurrent severe, without psychosis Surgical History Hx of cholecystectomy Previous back surgery Social History Social History Household Members: Significant Other Household Members Other:: roomate Housing: Apartment Do you presently have visiting nurse or other home services: Yes ([employer] services - 5 days week for 2 hours a day) Comment: 5 minute checks Patient Tobacco Use Status: Current everyday Tobacco user Tobacco use type: Cigarette Cigarette Packs Per Day: 1 Cigarettes Per Day: 20.0 Smoked in Last 30 Days: Yes e-Cigarette/Vaping Use: Never Used Second Hand Smoke Exposure: No Substance Use Type: Marijuana Advance Directives: Yes Advance Directives on File: Yes Advance Directives Date on File: 02/09/25 Patient : No service: No Sexual orientation: Straight/Heterosexual Physical Exam ED Exam Exam: Nursing notes and vital signs reviewed. Constitutional: Well-appearing, NAD. Alert. Oriented X3. Eyes: EOMI. ENT: Pharynx normal. Neck: Normal inspection. Neck supple. CVS: Normal heart rate and rhythm. Pulses normal. Respiratory: No respiratory distress. Breath sounds normal. Abdomen: Diffusely tender throughout. +BSx4. Skin: Skin warm and dry. Normal skin color. Extremities: No lower extremity edema. Neuro: Oriented X 3. No motor deficit. Vital Signs: Vital Signs - 24 hr 08/25/25 16:44 08/25/25 19:51 08/25/25 21:32 Temperature 97.8 F 97.7 F 97.5 F Pulse Rate 83 90 101 H Respiratory Rate 20 22 H 20 Blood Pressure 150/91 H 158/113 H 168/102 H Pulse Oximetry 94 97 100 Oxygen Delivery Method Room Air Room Air Room Air BMI result Body Mass Index 32.1 Medical Decision Making Medical Decision Making MDM Narrative: Upon my assessment she is actively crying, reporting diffuse abdominal pain. She does appear to be objectively tender throughout, the colostomy has a decent amount of dark stool, not black in color. Reports she has been eating but the pain became more severe today. I reviewed the results from the consultation that was last week for a dilated CBD noted to be [address]. Her mom was able to report the patient previously had this as a chronic finding since her cholecystectomy. Her labs had normal LFTs. The MRCP showe no stone however appearance suspicious for SOB versus distal stricture. Patient reportedly wanted to leave the hospital at that time and was discharged. It was recommended she follow up outpatient with GI for repeat imaging or ERCP. It is entirely possible this is the cause of her pain today. She again has a history of opiate allergy, and refuses trialing this medication. It is not documented as anaphylaxis, the allergy is unclear. We will administer a dose of Toradol and obtain CT imaging of the abdomen and pelvis. 2022-- reporting significan pain and reports Toradol did not help. We will administer a dose of diazepam, pending CT at this time. 2157-- the CT scan shows left hemicolectomy and left lower quadrant colostomy but no acute findings of the GI tract. There is stable degrees of intrahepatic or extrahepatic biliary tree dilation without radiopaque biliary tree stones or ampullary mass visualized. If concerning for acute biliary obstruction consider MRCP or ERCP. There is no significant change from 08/16/2025, when she was recently in the ED. We will plan to contact GI on-call. She does appear more comfortable upon my reassessment. 2205-- I spoke with GI on-call , we discussed the patient's presentation and case. Given there is no elevation in LFTs or leukocytosis, there is no indication for emergent ERCP or admission. Will trial PO and discharge. 2301-- tolerating PO. We will proceed with discharge. Patient and family member at bedside are agreeable to plan of care. Differential Diagnosis Differential Diagnoses: The differential diagnosis associated with the presentation includes Colitis, gastroenteritis, pancreatitis, cholecystitis, viral pathology, bowel obstruction Admission/Observation Consideration of admission/observation: Escalation of care including admission/observation considered (not indicated, no acute change.) Consult Healthcare Provider Management of the patient was discussed with: [employer] Machine Set Up Operator (GI on-call) Lab Data MDM Lab Attestation statement: I reviewed the patient's lab results. (Overall reassuring) 08/25/25 17:05 08/25/25 17:05 Labs: Lab Results 08/25/25 08/25/25 Range/Units 16:58 17:05 WBC 9.2 (4.8-10.8) X10*3/uL RBC 4.60 (4.20-5.50) X10*6/uL Hgb 15.3 (12.0-16.0) g/dl Hct 43.8 (37.0-47.0) % MCV 95.2 (80.0-98.0) fL MCH 33.3 H (27.0-33.0) pg MCHC 34.9 (31.0-35.0) g/dl RDW 12.9 (11.0-16.0) % Plt Count 99 L (160-400) X10*3/uL MPV 10.6 (9.4-12.3) fL Immature Gran % (Auto) 0.5 H (0.0-0.4) % Neut % (Auto) 76.3 H (45-73) % Lymph % (Auto) 15.8 L (20-40) % [place] % (Auto) 6.6 (2-11) % Eos % (Auto) 0.4 (0-4) % Baso % (Auto) 0.4 (0-2) % Lymph # (Auto) 1.5 (1.2-4.9) X10*3/uL [place] # (Auto) 0.6 (0.1-1.2) X10*3/uL Eos # (Auto) 0.0 (0.0-0.4) X10*3/uL Baso # (Auto) 0.0 (0.0-0.2) X10*3/uL Abs Immat Gran (auto) 0.05 H (0.00-0.03) X10*3/uL Absolute Neuts (auto) 7.0 (2.0-8.3) x10*3/uL Absolute Nucleated RBC 0.000 (0.0-0.012) X10*3/uL Nucleated RBC % (auto) 0.0 (0.0-0.2) /100WBC Sodium 141 (135-145) mmol/L Potassium 3.5 (3.3-5.1) mmol/L Chloride 103 (96-108) mmol/L Carbon Dioxide 27 (22-29) mmol/L Anion Gap 15 (12-20) BUN 27 H (9-16) mg/dL Creatinine 1.05 (0.5-1.4) mg/dL Estim Creat Clear Calc 53.0 Estimated GFR 55 Random Glucose 123 H (60-115) mg/dL Calcium 10.3 H D (8.4-10.2) mg/dL Total Bilirubin 0.4 (0.0-1.0) mg/dL Direct Bilirubin 0.2 (0.0-0.5) mg/dL AST 20 (5-31) U/L ALT 15 (0-31) U/L Alkaline Phosphatase 84 (39-117) U/L Total Protein 7.7 (6.5-8.0) g/dL Albumin 4.9 (3.5-5.0) g/dL Lipase 38 (8-78) U/L Urine Color Yellow Urine Appearance Clear Urine pH 6.5 (5.0-9.0) Ur Specific [place] 1.015 (1.005-1.025) Urine Protein Trace (Neg-Trace) mg/dL Urine Glucose (UA) Negative (Negative) mg/dL Urine Ketones Negative (Negative) mg/dL Urine Blood Negative (Negative) Urine Nitrite Negative (Negative) Ur Leukocyte Esterase Trace H (Negative) Urine RBC 0-2 (0-2) /HPF Urine WBC 0-5 (0-5) /HPF Ur Squamous Epith Cells 3-5 (0-2) /HPF Urine Bacteria Trace (None Seen) Hyaline Casts 0-2 (0-2) /LPF Independent Interpretation I performed an independent interpretation of an: CT Scan Interpretation: I have reviewed the patient's imaging and agree with the radiologist's findings. Radiology Impression Discussion of test interpretation with radiology: I have reviewed the radiologist's reading. Radiologist Impression: IMPRESSION: Left hemicolectomy and left lower quadrant colostomy. No acute findings in the gastrointestinal tract. Stable degree of intrahepatic and extrahepatic biliary tree dilation without radiopaque biliary tree stones or ampullary mass is visualized. May be seen post cholecystectomy. If concern for acute biliary obstruction, consider MRCP or ERCP. No significant change from 08/16/2025 CT. Independent Historian Clinical information obtained from an independent historian. History obtained from or confirmed by: Spouse and Friend External Record Review External record reviewed: Inpatient record and Prior outpatient labs Chronic Conditions Patient?s care impacted by: Other (CKD, colostomy) Social Determinants Patient?s care significantly limited by Social Determinants of Health including: Low income and Problems related to primary support group Medications Administered Discontinued Medications Generic Name Dose Route Start Last Admin Trade Name Juan Joséq PRN Reason Stop Dose Admin Diazepam 2 mg 08/25/25 20:15 08/25/25 20:46 Diazepam 10 Mg/2 Ml Cartridge IVPUSH 08/25/25 20:16 2 mg STAT STA Administration Sodium Chloride 1,000 mls @ 999 mls/hr 08/25/25 18:42 08/25/25 21:30 Ns IV 08/25/25 19:42 Infused .Q1H1M ONE Infusion Iohexol 100 ml 08/25/25 20:30 08/25/25 20:34 Iohexol 350 Mg/Ml 100 Ml Infus..Btl IV 08/25/25 20:31 85 ml ONCE ONE Administration Ketorolac Tromethamine 15 mg 08/25/25 19:16 08/25/25 19:28 Ketorolac Tromethamine 15 Mg/Ml Vial IVPUSH 08/25/25 19:17 15 mg ONCE ONE Administration Discharge Plan Discharge Clinical Impression: Abdominal pain Qualifiers: Abdominal location: unspecified location Qualified Code(s): R10.9 - Unspecified abdominal pain Patient Disposition: Home, Self-Care Instructions: Abdominal Pain (ED) Additional Instructions: As we discussed, your workup here was overall reassuring and similar to 1 year here about 1 week ago. Again, it is very important that he follow up with Gastroenterology outpatient. I have provided the information below for your convenience. Please do this within the next 72 hours. With any worsening complaints at any time, you may seek re-evaluation in the ED. Prescriptions: No Action ferrous sulfate [FeroSul] 325 mg (65 mg iron) tablet 325 mg PO DAILY 30 Days Qty: 30 0RF Rx Instructions: with breakfast albuterol sulfate 90 mcg/actuation HFA aerosol inhaler 2 puff inhalation Q4H PRN (Reason: Wheezing) 30 Days Qty: 1 0RF sennosides [senna] 8.6 mg Tablet 8.6 mg PO BID atorvastatin 10 mg Tablet 10 mg PO BEDTIME folic acid 1 mg Tablet 1 mg PO DAILY metoprolol succinate 25 mg Tablet Extended Release 24 Hr 25 mg PO DAILY sertraline 100 mg tablet 150 mg PO DAILY 30 Days Qty: 45 0RF hydrochlorothiazide 25 mg tablet 25 mg PO DAILY trazodone 100 mg tablet 125 mg PO BEDTIME hydroxyzine HCl 25 mg tablet 50 mg PO TID PRN (Reason: mild anxiety) risperidone 0.5 mg tablet 1 mg PO BEDTIME cyanocobalamin (vitamin B-12) [Vitamin B-12] 1,000 mcg tablet extended release 2,000 mcg PO DAILY omeprazole 40 mg capsule,delayed release(DR/EC) 40 mg PO BID@0630,1630 dicyclomine 10 mg capsule 10 mg PO BIDWM nystatin 100,000 unit/gram powder 1 appl topical DAILY amlodipine 5 mg tablet 7.5 mg PO DAILY dicyclomine 10 mg Capsule 10 mg PO BEDTIME polyethylene glycol 3350 17 gram Powder In Packet 17 g PO BID 30 Days Qty: 14 0RF Referrals: [facility] Gastroenterology Services [Provider Group, Gastroenterology] Print Language: Mosotho
[2025-08-25 19:51] VITALS: BP 158/113; PULSE 90; RESP 22; TEMP 36.5; O2SAT 97
--- NOTE | 2025-08-25 20:28 | PC.NURSE ---
Patient is away for imaging. Will medicate upon return to ED 21.
[2025-08-25] MEDS: iohexoL 350 MG/ML 100 ML INFUS..BTL IV (20:34)
[2025-08-25] MEDS: diazePAM 10 MG/2 ML CARTRIDGE 2 MG IVPUSH (20:46)
--- OUTSIDE RECORDS SUMMARY | 2025-08-25 21:01 | XMS_ITS | Encounter Summary ---
Author Organization [facility] Address [address] [place] [phone] Phone Care Team Providers Care Machine Former Name Role Phone Shaheed Henley MD Primary Care Provider Unavail able Encounter Details Date Type Department Care Team (Late st Contact Info) Description 03/06/2018 Procedure Pass [facility] [address] [place] [address] Social History Tobacco Use Types Packs/Day Years [...] on filedocumented in this encounter Care Teams Machine Former Relationship Specialty Start Date End Date Shaheed Henley MD PCP - General Endocrinology 02/05/18 documented as of this encounter Additional Source Comments The information contained in this document represents components of the legal health record. It is not the complete legal health record.[facility]
--- OUTSIDE RECORDS SUMMARY | 2025-08-25 21:01 | XMS_ITS | Encounter Summary ---
Author Organization [employer] Address [address] [place] [address] Care Team Providers Care Hook Up Name Role Phone Marc Longo MD Primary Care Provider [phone] Encounter Details Date Type Department Care Team (Late st Contact Info) Description 01/20/2025 Lab Requisition [facility] - Main Lab [address] [place] [address] Courtney Roger MD [address] [place] [address] [phone] Anemia, unspecified; Other disorders of electrolyte and [...] Care Team (Late st Contact Info) Description 08/31/2025 10:30 AM EST Office Visit Adult Medicine [address] [phone] Marc Longo MD [address] [place] [address] 11/30/2025 9:45 AM EST Office Visit Adult Medicine [address] [phone] Marc Longo MD [address] [place] [address] 06/21/2026 1:15 PM EDT Office Visit [facility] Hematology Oncology [address] [place] [address] Heide Covarrubias MD [address] [place] [address] documented as of this encounter Procedures Procedure [...] mmol/L LAB CHEMISTRY METHOD 01/20/2025 9:50 AM [facility] Potassium 4.5 3.5 - 5.5 mmol/L LAB CHEMISTRY METHOD 01/20/2025 9:50 AM [facility] Chloride 102 96 - 110 mmol/L LAB CHEMISTRY METHOD 01/20/2025 9:50 AM [facility] CO2 32 21 - 32 mmol/L LAB CHEMISTRY METHOD 01/20/2025 9:50 AM [facility] Anion Gap 5 3 - 11 LAB CHEMISTRY METHOD 01/20/2025 9:50 AM [facility] Glucose 113(H) 70 - 100 mg/dL LAB CHEMISTRY METHOD 01/20/2025 9:50 AM [facility] BUN 19 5 - 25 mg/dL LAB CHEMISTRY METHOD 01/20/2025 9:50 AM [facility] Creatinine 0.84 0.50 - 1.10 mg/dL LAB CHEMISTRY METHOD 01/20/2025 9:50 AM [facility] eGFR 83 >=60 mL/min/1. 73m2 LAB CHEMISTRY METHOD 01/20/2025 9:50 AM [facility] Comment:Calculation based on the Chronic Kidney Disease Epidemiology Collaboration (CKD-EPI) equation refit without adjustment for race. BUN/Creatinine Ratio 22.6 LAB CHEMISTRY METHOD 01/20/2025 9:50 AM [facility] Calcium 9.3 8.5 - 10.5 mg/dL LAB CHEMISTRY METHOD 01/20/2025 9:50 AM [facility] AST (SGOT) 18 10 - 42 unit/L LAB CHEMISTRY METHOD 01/20/2025 9:50 AM [facility] ALT (SGPT) 96(H) 10 - 60 unit/L LAB CHEMISTRY METHOD 01/20/2025 9:50 AM [facility] Alkaline Phosphatase 123(H) 42 - 121 unit/L LAB CHEMISTRY METHOD 01/20/2025 9:50 AM [facility] Total Protein 5.9(L) 6.0 - 8.0 g/dL LAB CHEMISTRY METHOD 01/20/2025 9:50 AM [facility] Albumin 3.0(L) 3.2 - 5.0 g/dL LAB CHEMISTRY METHOD 01/20/2025 9:50 AM [facility] Total Bilirubin 0.4 0.0 - 1.4 mg/dL LAB CHEMISTRY METHOD 01/20/2025 9:50 AM [facility] Blood Venous blood specimen / Unknown Venipuncture / Unknown 01/20/2025 6:13 AM EDT 01/20/2025 8:56 AM EDT us Courtney Roger MD LAB BLOOD ORDERABLES Fin al Result [facility] [address] [place] [address], [place] [phone] * (ABNORMAL) Complete blood count (01/20/2025 6:13 AM EDT) [facility] WBC 4.8 4.8 - 10.8 K/mcL LAB HEMETOLOGY METHOD 01/20/2025 9:34 AM [facility] RBC 3.80 3.80 - 4.80 M/mcL LAB HEMETOLOGY METHOD 01/20/2025 9:34 AM [facility] Hemoglobin 12.9 11.5 - 16.0 g/dL LAB HEMETOLOGY METHOD 01/20/2025 9:34 AM [facility] Hematocrit 38.3 35.0 - 47.0 % LAB HEMETOLOGY METHOD 01/20/2025 9:34 AM [facility] MCV 101.6(H) 79.0 - 98.0 FL LAB HEMETOLOGY METHOD 01/20/2025 9:34 AM [facility] MCH 34.2(H) 27.0 - 32.0 pcg LAB HEMETOLOGY METHOD 01/20/2025 9:34 AM [facility] MCHC 33.7 32.0 - 37.0 g/dL LAB HEMETOLOGY METHOD 01/20/2025 9:34 AM [facility] RDW 12.2 11.0 - 15.0 % LAB HEMETOLOGY METHOD 01/20/2025 9:34 AM [facility] Platelets 81(L) 130 - 400 K/mcL LAB HEMETOLOGY METHOD 01/20/2025 9:34 AM [facility] Comment:previously verified by slide MPV 12.0(H) 7.0 - 11.0 FL LAB HEMETOLOGY METHOD 01/20/2025 9:34 AM [facility] NRBC 0.0 <1.0 % LAB HEMETOLOGY METHOD 01/20/2025 9:34 AM EDT [facility] NRBC Absolute 0.00 <0.10 K/mcL LAB HEMETOLOGY METHOD 01/20/2025 9:34 AM EDT [facility] Blood Venous blood specimen / Unknown Venipuncture / Unknown 01/20/2025 6:13 AM EDT 01/20/2025 8:56 AM EDT us Courtney Rogre MD LAB BLOOD ORDERABLES Fin al Result [facility] [address] [place] [address], documented in this encounter Visit Diagnoses Diagnosis Anemia, unspecified Other disorders of electrolyte and fluid balance, not elsewhere classified documented in this encounter Care Teams Hook Up Relationship Specialty Start Date End Date Marc Longo MD [address] [place] [phone] PCP - General Internal Medicine 07/14/15 documented as of this encounter
--- OUTSIDE RECORDS SUMMARY | 2025-08-25 21:01 | XMS_ITS | Encounter Summary ---
Author Organization [email or web address] Address [address] [place] [address] Care Team Providers Care Gis Engineer Name Role Phone Marc Longo MD Primary Care Provider [phone] Encounter Details Date Type Department Care Team (Late st Contact Info) Description 02/05/2025 Lab Requisition [facility] - Main Lab [address] [place] [address] Courtney Roger MD [address] [place] [address] [phone] Anemia, unspecified; Other disorders of electrolyte and [...] 10:30 AM EST Office Visit Adult Medicine [address] [phone] Marc Longo MD [address] [place] [address] 11/30/2025 9:45 AM EST Office Visit Adult Medicine [address] [phone] Marc Longo MD [address] [place] [address] 06/21/2026 1:15 PM EDT Office Visit [facility] Hematology Oncology [address] [place] [phone] Heide Covarrubias MD [address] [place] [address] documented as of this encounter Visit Diagnoses Diagnosis Anemia, unspecified Other disorders of electrolyte and fluid balance, not elsewhere classified documented in this encounter Care Teams Gis Engineer Relationship Specialty Start Date End Date Marc Longo MD [address] [place] [phone] PCP - General Internal Medicine 07/14/15 documented as of this encounter
--- OUTSIDE RECORDS SUMMARY | 2025-08-25 21:01 | XMS_ITS | Clinical Summary ---
Author Organization [address] Address [address] [place] [phone] Phone Care Team Providers Care Job Analysis Manager Name Role Phone Marc Longo MD Primary Care Provider [phone] Allergies Active Allergy Reactions Criticality Noted Date Comments Aspirin 04/20/2007 Rash; NOT ALLERGIC PER PATIENT Azithromycin Swelling 09/18/2015 Carisoprodol 07/21/2007 Codeine 11/17/2007 Gi upset Diazepam 04/20/2007 Valium gi upset,vom Gabapentin 07/29/2014 nausea Horse Dander 04/20/2007 Horse Serum animal Morphine Sulfate 04/20/2007 gi upset,vom Opium Tincture 02/02/2018 Oxycodone-Acetaminophen 04/20/2007 gi upset [id number] 08/01/2017 Moviprep [Ccpuwgxhg-[id number]-peg-na Iqzczt-cmkg-ocml] Prednisone 02/29/2016 nausea Propoxyphene Other 12/10/2007 Cannot [...] 3 (three) times a day if needed. 02/09/20 25 Active atorvastatin (LIPITOR) 10 mg tablet Take 1 tablet (10 mg total) by mouth at bedtime. 90 tablet 1 03/02/20 25 Active metoprolol succinate (TOPROL-XL) 25 mg 24 hr tablet Take 1 tablet (25 mg total) by mouth 1 (one) time each day. Do not crush or chew. 90 tablet 1 03/02/20 25 Active folic acid (FOLVITE) 1 mg tablet Take 1 tablet (1,000 mcg total) by mouth 1 (one) time each day. 90 tablet 1 03/02/20 25 Active hydroCHLOROthi azide (HYDRODIURIL) 25 mg tablet Take 1 tablet (25 mg total) by mouth 1 (one) time each day. 30 each 5 03/03/20 25 025 Active cyanocobalamin 2,000 mcg ER tablet Take 1 tablet (2,000 mcg total) by mouth 1 (one) time each day. 90 tablet 1 03/24/20 25 026 Active nystatin (MYCOSTATIN) 100,000 unit/gram powder Apply thin layer to affected area twice daily 30 g 05/24/20 25 Active albuterol HFA (PROAIR HFA ; PROVENTIL HFA ; VENTOLIN HFA) 90 mcg/actuation inhaler Inhale 2 puffs by mouth every 4 (four) hours if needed (cough, wheezing, shortness of breath). 8.5 g 05/31/20 25 Active omeprazole (PriLOSEC) [address] capsule Take 1 capsule (40 mg total) by mouth 2 (two) times a day. Do not crush or chew. 90 capsule 1 05/31/20 25 Active ferrous sulfate 325 mg (65 mg elemental iron) tablet Take 1 tablet (325 mg total) by mouth 1 (one) time each day. 90 tablet 1 05/31/20 25 Active dicyclomine (BENTYL) 10 mg capsule TAKE 1 CAPSULE BY MOUTH two (2) times a day WITH MEALS AND AT BEDTIME 180 capsule 1 05/31/20 25 Active senna 8.6 mg tablet TAKE 1 TABLET BY MOUTH two (2) times a day 60 tablet 5 08/24/20 25 Active senna (SENOKOT) 8.6 mg tablet Take 1 tablet (8.6 mg total) by mouth 2 (two) times a day. 180 tablet 1 03/02/20 25 025 Discontinued Active Problems Problem Noted Date Diagnosed Date Constipation, chronic 04/16/2024 Chronic low back pain 02/07/2022 CKD (chronic kidney disease) stage 3, GFR 30-59 ml/min ([facility] V24, [facility] V28) 11/15/2020 Marijuana abuse 11/14/2020 Thrombocytopenia ([facility] V24) 10/25/2019 Insomnia 07/16/2017 Resolved Problems Problem Noted Date Diagnosed Date Resolved Date Diarrhea 01/14/2025 01/19/2025 Rectal prolapse 04/16/2024 01/19/2025 Encounters Date Type Department Care Team Description 08/18/2025 Referral Triage [facility] Worker Program [address] [place] [phone] Paris Hernandez 08/18/2025 Telephone Adult Medicine [address] [phone] Hilda Knight RN 06/21/2025 1:30 PM EDT Office Visit [facility] Hematology Oncology [address] [place] [address] Heide Covarrubias MD Thrombocytopenia ([facility] V24) (Primary Dx) 06/21/2025 10:06 AM EDT - 06/21/2025 11:59 PM EDT Hospital Encounter CT Scan - [address] [place] [phone] Right lower quadrant abdominal pain; S/P colostomy ([facility] V24, [facility] V28); Rectal prolapse Discharge Disposition: Home or Self Care 06/20/2025 2:30 PM EDT Office Visit Adult Medicine [address] [phone] Marc Longo MD Right lower quadrant abdominal pain (Primary Dx); S/P colostomy ([facility] V24, [facility] V28); Rectal prolapse; Marijuana abuse; Developmental delay; Mental health impairment from Last 3 Months Immunizations Immunization Administration Dates Next Due Td Tetanus diptheria (Tdvax) 7yo and older 11/19 Tdap Tetanus diptheria acell ular pertussis (Boostrix; Adacel) 7yo and older 06/07/2008 Surgical History Surgery Date Site/Laterality Comments BACK SURGERY 1996 PROCEDURE: HISTORICAL BACK SURGERY; COMMENT: multiple back procedures ESOPHAGOGASTRODUODENOSCOPY 08/01/2008 PROCEDURE: CT EGD TRANSORAL BIOPSY SINGLE/MULTIPLE; COMMENT: duodenal bx: wnl COLONOSCOPY W/ BIOPSIES 08/01/2008 PROCEDURE: CT COLONOSCOPY W/BIOPSY SINGLE/MULTIPLE; COMMENT: colonic bx: wnl TUBAL LIGATION 2002 PROCEDURE: HISTORICAL TUBAL LIGATION ENDOMETRIAL ABLATION 05/25/2010 PROCEDURE: CT ENDOMETRIAL ABLTJ THERMAL W/O HYSTEROSCOPIC GUID; COMMENT: [...] drink = 0.6 oz pur e alcohol) Housing Instability Answer Date Recorde d Are you worried that in the next 2 months you may not have stable housing? No 08/18/2025 Food Access & Nutrition Answer Date Rec orded Do you have access to a vari ety of food including fruits and vegetables? Yes 08/18/2025 Access to Healthcare Answer Date Record ed Within the last 3 months, ho dominguez many times did you visit the emergency department for your medical care? 1 08/18/2025 Health Literacy Answer Date Recorded How often do you need to hav e someone help you when you read instructions, pamphlets, or other written material from your doctor or pharmacy? Always 08/18/2025 Caregiver: How often do you need to have someone help you when you read instructions, pamphlets, or other written material from your doctor or pharmacy? Not on file 08/18/2025 Financial Risk Answer Date Recorded How hard is it for you to pa y for the very basics like food, housing, medical care, and air conditioning / heating? Not very hard 08/18/2025 Transportation Answer Date Recorded Has the lack of transportati on kept you from meetings, work, or from getting things needed for daily living? No Has the lack of transportati on kept you from medical appointments or from getting medications? No 08/18/2025 Social Isolation Answer Date Recorded How often do you feel lonely or isolated from those around you? Not asked 08/18/2025 Food Risk Answer Date Recorded Within the past 12 months we worried whether our food would run out before we got money to buy more. Often true 08/18/2025 Within the past 12 months th e food we bought just didn't last and we didn't have money to get more. Often true 08/18/2025 Education Answer Date Recorded Do you think completing more education or training, like finishing a GED, going to college, or learning a trade, would be helpful for you? N/A 08/18/2025 Employment and Income Answer Date Recor ded During the last four weeks, have you been actively looking for work? No 08/18/2025 Living Situation Answer Date Recorded What is your living situation? Unrecognized valu e 08/18/2025 Interpersonal Safety Answer Date Record ed Physical [...] 10:30 AM EST Office Visit Adult Medicine [address] [phone] Marc Longo MD [address] [place] [address] 11/30/2025 9:45 AM EST Office Visit Adult Medicine [address] [phone] Marc Longo MD [address] [place] [address] 06/21/2026 1:15 PM EDT Office Visit [facility] Hematology Oncology [address] [place] [phone] Heide Covarrubias MD [address] [place] [address] Health Maintenance Due Date Last Done Comments COVID-19 Vaccine (#1) 1976 Hepatitis A Vaccines (1 of 2 - Risk 2-dose series) 1990 Hepatitis B Vaccines (1 of 3 - 19+ 3-dose series) 1990 Pneumococcal Vaccine: 50+ Years (1 of 2 - PCV) 1990 Zoster Vaccines (1 of 2) 1990 Cervical Cancer Screening: Pap Smear 12/28/2018 12/29/2015, 12/29/2015 Medicare Annual Wellness Visit 09/14/2022 Depression Screening 10/06/2024 Influenza Vaccine (#1) 2025 Breast Cancer Screening 12/22/2025 12/23/19 24, 09/04/2020, 08/30/2019, Additional history exists Hypertension/CHF/CAD Annual BMP Blood Test 06/20/2026 06/20/2025, 02/11/2025, 01/24/2025, Additional history exists Social Influencers of Health Screening 08/18/2026 08/18/2025 Cholesterol Screening (Lipid Panel) 11/26/2028 11/26/2023 DTaP,Tdap,and [...] Signed Date: 06/21/2025 13:29 ET Workstation ID: [id number] Transcribed By: Self Edit Transcribed Date: 06/21/2025 [...] Signed Date: 06/21/2025 13:29 ET Workstation ID: [id number] Transcribed By: Self Edit Transcribed Date: 06/21/2025 12:10 ET Marc Longo MD IMG CT PROCEDURES Final Result * Miscellaneous reference lab test (06/21/2025) Provider Onbase LAB BLOOD ORDERABLES Final Re sult * (ABNORMAL) CBC auto differential (06/20/2025 3:30 PM EDT) WBC 9.3 4.8 - 10.8 K/mcL LAB HEMETOLOGY METHOD 06/20/2025 6:34 PM EDT [facility] RBC 5.00(H) 3.80 - 4.80 M/mcL LAB HEMETOLOGY METHOD 06/20/2025 6:34 PM EDT [facility] Hemoglobin 16.2(H) 11.5 - 16.0 g/dL LAB HEMETOLOGY METHOD 06/20/2025 6:34 PM EDT [facility] Hematocrit 46.5 35.0 - 47.0 % LAB HEMETOLOGY METHOD [facility]20[facility]25 [facility] MCV 93.6 79.0 - 98.0 FL LAB HEMETOLOGY METHOD 06/20/2025 6:[facility] MCH 32.6(H) 27.0 - 32.0 pcg LAB HEMETOLOGY METHOD 06/20/2025 6:34 PM [facility] MCHC 34.8 32.0 - 37.0 g/dL LAB HEMETOLOGY METHOD 06/20/2025 6:34 PM T [facility] RDW 14.1 11.0 - 15.0 % LAB HEMETOLOGY METHOD 06/20/2025 6:34 PM [facility] Platelets 88(L) 130 - 400 K/mcL LAB HEMETOLOGY METHOD 06/20/2025 6:34 PM [facility] MPV 12.9(H) 7.0 - 11.0 FL LAB HEMETOLOGY METHOD 06/20/2025 6:34 PM [facility] NRBC 0.0 <1.0 % LAB HEMETOLOGY METHOD 06/20/2025 6:34 PM [facility] NRBC Absolute 0.00 <0.10 K/mcL LAB HEMETOLOGY METHOD 06/20/2025 6:34 PM [facility] Neutrophils Relative 71.4 % LAB HEMETOLOGY METHOD 06/20/2025 6:34 PM [facility] Lymphocytes Relative 20.4 % LAB HEMETOLOGY METHOD 06/20/2025 6:34 PM [facility] Monocytes Relative 7.0 % LAB HEMETOLOGY METHOD 06/20/2025 6:34 PM [facility] Eosinophils Relative 0.4 % LAB HEMETOLOGY METHOD 06/20/2025 6:34 PM [facility] Basophils Relative 0.3 % LAB HEMETOLOGY METHOD 06/20/2025 6:34 PM EDT [facility] Immature Granulocytes Relative 0.5 % LAB HEMETOLOGY METHOD 06/20/2025 6:34 PM EDT [facility] Neutrophils Absolute 6.61 1.50 - 7.00 K/mcL LAB HEMETOLOGY METHOD 06/20/2025 6:34 PM EDT [facility] Lymphocytes Absolute 1.89 1.00 - 5.00 K/mcL LAB HEMETOLOGY METHOD 06/20/2025 6:34 PM EDT [facility] Monocytes Absolute 0.65 0.20 - 1.00 K/mcL LAB HEMETOLOGY METHOD 06/20/2025 6:34 PM EDT [facility] Eosinophils Absolute 0.04 0.00 - 0.50 K/mcL LAB HEMETOLOGY METHOD 06/20/2025 6:34 PM EDT [facility] Basophils Absolute 0.03 0.00 - 0.20 K/mcL LAB HEMETOLOGY METHOD 06/20/2025 6:34 PM EDT [facility] Immature Granulocytes Absolute 0.05(H) 0.00 - 0.03 K/mcL LAB HEMETOLOGY METHOD 06/20/2025 6:34 PM EDT [facility] Blood Venous blood specimen / Unknown Venipuncture / Unknown 06/20/2025 3:30 PM EDT 06/20/2025 3:30 PM EDT us Marc Longo MD LAB BLOOD ORDERABLES Final Resu lt [facility] [address] [place] [address], * (ABNORMAL) Comprehensive metabolic panel (06/20/2025 3:30 PM EDT) Sodium 137 133 - 145 mmol/L LAB CHEMISTRY METHOD 06/20/2025 6:33 PM EDT [facility] Potassium 3.3(L) 3.5 - 5.5 mmol/L LAB CHEMISTRY METHOD 06/20/2025 6:33 PM [facility] Chloride 102 96 - 110 mmol/L LAB CHEMISTRY METHOD 06/20/2025 6:33 PM [facility] CO2 29 21 - 32 mmol/L LAB CHEMISTRY METHOD 06/20/2025 6:33 PM [facility] Anion Gap 6 3 - 11 LAB CHEMISTRY METHOD 06/20/2025 6:33 PM [facility] Glucose 126(H) 70 - 100 mg/dL LAB CHEMISTRY METHOD 06/20/2025 6:33 PM [facility] BUN 21 5 - 25 mg/dL LAB CHEMISTRY METHOD 06/20/2025 6:33 PM [facility] Creatinine 1.08 0.50 - 1.10 mg/dL LAB CHEMISTRY METHOD 06/20/2025 6:33 PM [facility] eGFR 61 >=60 mL/min/1. 73m2 LAB CHEMISTRY METHOD 06/20/2025 6:33 PM [facility] Comment:Calculation based on the Chronic Kidney Disease Epidemiology Collaboration (CKD-EPI) equation refit without adjustment for race. BUN/Creatinine Ratio 19.4 LAB CHEMISTRY METHOD 06/20/2025 6:33 PM [facility] Calcium 9.8 8.5 - 10.5 mg/dL LAB CHEMISTRY METHOD 06/20/2025 6:33 PM [facility] AST (SGOT) 16 10 - 42 unit/L LAB CHEMISTRY METHOD 06/20/2025 6:33 PM [facility] ALT (SGPT) 17 10 - 60 unit/L LAB CHEMISTRY METHOD 06/20/2025 6:33 PM [facility] Alkaline Phosphatase 96 42 - 121 unit/L LAB CHEMISTRY METHOD 06/20/2025 6:33 PM EDT [facility] Total Protein 7.6 6.0 - 8.0 g/dL LAB CHEMISTRY METHOD 06/20/2025 6:33 PM EDT [facility] Albumin 4.3 3.2 - 5.0 g/dL LAB CHEMISTRY METHOD 06/20/2025 6:33 PM EDT [facility] Total Bilirubin 0.5 0.0 - 1.4 mg/dL LAB CHEMISTRY METHOD 06/20/2025 6:33 PM EDT [facility] Blood Venous blood specimen / Unknown Venipuncture / Unknown 06/20/2025 3:30 PM EDT 06/20/2025 3:30 PM EDT us Marc Longo MD LAB BLOOD ORDERABLES Final Resu lt [facility] [address] [place] [address], [place] [phone] * Hepatitis panel, acute with reflex to confirmation (01/14/2025 8:38 AM EDT) Hepatitis B Surface Ag Negative Negative LAB CHEMISTRY METHOD 01/14/2025 11:33 AM EDT [facility] Hepatitis A Antibody IgM Negative Negative LAB CHEMISTRY METHOD 01/14/2025 11:33 AM EDT [facility] Hep B Core IgM Negative Negative LAB CHEMISTRY METHOD 01/14/2025 11:33 AM EDT [facility] Hepatitis C Antibody Negative Negative LAB CHEMISTRY METHOD 01/14/2025 11:33 AM EDT [facility] Blood Venous blood specimen / Unknown Venipuncture / Unknown 01/14/2025 8:38 AM EDT 01/14/2025 9:02 AM EDT us Mala GOMEZ LAB BLOOD ORDERABLES Final Result Performing Organization Address City/[facility]/ZIP Co de Phone Number [facility] [address] [place] [address], [place] [phone] * Colonoscopy (04/01/2024) Colonoscopy no interpretation , [...] Maeve l Result * Pap Smear (12/29/2015) Pap smear normal, abstracted Historical Provider HEALTH MAINTENANCE Final Result * HIV Screening (06/26/2009) HIV Screening abstracted [facility] Provider HEALTH MAINTENANCE Final Result from Last 3 Months or Most Recently Relevant to Health Maintenance Insurance MEDICARE [place]ICA[place] - [place] Advance Directives Documents on File Type Date Recorded Patient Solution Engineer Expl anation Advance Directives and Living Will [...] Agents on File Name Relationship Healthcare Agent [facility] Communication Isadora Ramon [facility] Agent Care Teams Job Analysis Manager Relationship Specialty Start Date End Date Marc Longo MD [address] [place] [phone] PCP - General Internal Medicine 07/14/15
--- OUTSIDE RECORDS SUMMARY | 2025-08-25 21:01 | XMS_ITS | Encounter Summary ---
Author Organization [employer] Address [address] [place] [address] Care Team Providers Care Concrete Handler Name Role Phone Marc Longo MD Primary Care Provider [phone] Encounter Details Date Type Department Care Team ([facility] Contact Info) Description 03/23/2025 Billing Patient Not Present Adult Medicine [address] [phone] Marc Longo MD [address] [place] [address] Social History Tobacco Use Types Packs/Day Years [...] of Assessment Author Yes 01/14/2025 6:15 AM SHANIT Sandoval Yanes RN * Do you have [...] Sandoval Whittaker RN documented in this encounter Plan of Treatment Upcoming Encounters Date Type Department Care Team (Late st Contact Info) Description 08/31/2025 10:30 AM EST Office Visit Adult Medicine [address] [phone] Marc Longo MD [address] [place] [address] 11/30/2025 9:45 AM EST Office Visit Adult Medicine [address] [phone] Marc Longo MD [address] [place] [address] 06/21/2026 1:15 PM EDT Office Visit [facility] Hematology Oncology [address] [place] [address] Heide Covarrubias MD [address] [place] [address] documented as of this encounter Visit Diagnoses Not on filedocumented in this encounter Care Teams Concrete Handler Relationship Specialty Start Date End Date Marc Longo MD [address] [place] [phone] PCP - General Internal Medicine 07/14/15 documented as of this encounter
--- OUTSIDE RECORDS SUMMARY | 2025-08-25 21:01 | XMS_ITS | Clinical Summary ---
Author Organization [facility] Address [address] [place] [address] Care Team Providers Care Physical Therapy Assistant Instructor Name Role Phone Marc Longo MD Primary Care Provider [phone] Allergies Active Allergy Reactions Criticality Noted Date Comments Aspirin 04/20/2007 Rash; NOT ALLERGIC PER PATIENT Rash; NOT ALLERGIC PER PATIENT Azithromycin Swelling 09/18/2015 Carisoprodol 07/21/2007 Codeine 11/17/2007 Gi upset Gi upset Diazepam 04/20/2007 gi upset,vom gi upset,vom Gabapentin 07/29/2014 nausea nausea Morphine 04/20/2007 gi upset,vom gi upset,vom Opium 02/02/2018 Oxycodone-Acetaminophen 04/20/2007 gi upset gi upset Wwr-Ztx-Ffpq-Nasulf-Na Asc-C 08/01/2017 Pheniramine 04/20/2007 Prednisone 02/29/2016 nausea [...] age to complete this topic Care Teams Physical Therapy Assistant Instructor Relationship Specialty Start Date End Date Marc Longo MD PCP - General Internal Medicine 06/24/22
--- OUTSIDE RECORDS SUMMARY | 2025-08-25 21:01 | XMS_ITS | Encounter Summary ---
Author Organization [employer] Address [address] [place] [address] Care Team Providers Care Hospice Director Name Role Phone Marc Longo MD Primary Care Provider [phone] Encounter Details Date Type Department Care Team (Late st Contact Info) Description 01/28/2025 Lab Requisition [facility] - Main Lab [address] [place] [address] Courtney Roger MD [address] [place] [address] [phone] Anemia, unspecified; Other disorders of electrolyte and [...] 10:30 AM EST Office Visit Adult Medicine [address] [phone] Marc Longo MD [address] [place] [address] 11/30/2025 9:45 AM EST Office Visit Adult Medicine [address] [phone] Marc Longo MD [address] [place] [address] 06/21/2026 1:15 PM EDT Office Visit [facility] Hematology Oncology [address] [place] [phone] Heide Covarrubias MD [address] [place] [address] documented as of this encounter Visit Diagnoses Diagnosis Anemia, unspecified Other disorders of electrolyte and fluid balance, not elsewhere classified documented in this encounter Care Teams Hospice Director Relationship Specialty Start Date End Date Marc Lnogo MD [address] [place] [phone] PCP - General Internal Medicine 07/14/15 documented as of this encounter
--- OUTSIDE RECORDS SUMMARY | 2025-08-25 21:01 | XMS_ITS | Clinical Summary ---
Author Organization [facility] Address [address] [facility] [address] [place] [address] Phone Care Team Providers Care Gas Systems Worker Name Role Phone Shaheed Henley MD Primary [...] Active ferrous sulfate 325 mg (65 mg walker river iron) tablet Take 325 mg by mouth [...] B MEDICARE PART A & [place] [address] MEDICARE PART A & B MEDICARE PART A & B Member Subscriber Plan / Payer (Ef fective 1996-) Name:Claire Ramon Member ID:[id number] Relation to Subscriber:Self Name:Claire Ramon Subscriber ID:[id number] Payer ID:[id number] Group ID:Not on file Type:Medicare Address: [employer] [address] [place] [address] MEDICARE PART A & B MEDICARE PART A & B B Advance Directives For more information, please contact: [phone] (9AM - 5PM [facility], Friday-Friday) Documents on File Type Date Recorded Patient Supervisor Parking Lot Expl anation Healthcare Proxy 02/13/2025 9:17 AM * Full Code (Latest Code Status on File) Date Activated Date Inactivated Comments 02/13/2025 5:06 AM Question Answer Comments Code Status Confirmed With: Patient Code Status Communicated To: Inpatient Attending Care Teams Gas Systems Worker Relationship Specialty Start Date End Date Shaheed Henley MD PCP - General Endocrinology 02/05/18 Additional Source Comments The information contained in this document represents components of the legal health record. It is not the complete legal health record.[facility]
--- OUTSIDE RECORDS SUMMARY | 2025-08-25 21:01 | XMS_ITS | Encounter Summary ---
Author Organization [employer] Address [address] [place] [address] Care Team Providers Care Card Seller Name Role Phone Marc Longo MD Primary Care Provider [phone] Reason for Visit * Reason Onset Date Comments Fitting for DME 08/18/2025 Encounter Details Date Type Department Care Team ([facility] Contact Info) Description 08/18/2025 Telephone Adult Medicine [address] [address] Hilda Knight, JUSTIN Social History Tobacco Use Types Packs/Day Years [...] Record ed Within the last 3 months, terrie mix many times did you visit the emergency [...] of Assessment Author No 01/14/2025 6:15 AM Sandoval Whittaker RN * Are you blind or do you have serious difficulty seeing, even when wearing glasses? Answer Date of Assessment Author No 01/14/2025 6:15 AM Sandoval Whittaker RN * Do you have serious difficulty walking or climbing stairs? Answer Date of Assessment Author Yes 01/14/2025 6:15 AM Sandoval Whittaker RN * Do you have serious difficulty dressing or bathing? Answer Date of Assessment Author Yes 01/14/2025 6:15 AM Sandoval Whittaker RN * Because of a physical, mental, or emotional condition, do you have serious difficulty doing errandsalone such as visiting the doctor? Answer Date of Assessment Author Yes 01/14/2025 6:15 AM Sandoval Whittaker RN documented as of this encounter Mental Status * Because of a physical, mental, or emotional condition, do you have serious difficulty concentrating, remembering, or making decisions? (5 years old or older) Answer Entry Date Author Yes 01/14/2025 6:15 AM Sandoval Whittaker RN documented in this encounter Progress Notes * Modesta Nicolas - 08/24/2025 3:20 PM EST Forms signed scanned and faxed * Hilda Knight RN - 08/18/2025 2:39 PM EST She states patient runs out of her ostomy supplies and insurance will only cover a certain amount. Purchasing supplies out of pocket is too costly. Patient needs a letter/office notes specifically stating that she requires more supplies due to medical necessity, and this needs to go to Medicare directly, not [employer]. Isadora states running out of these supplies is causing patient anxiety and she is going to run out on 08/29/25. Can you please call Isadora to see exactly what she needs to have this resolved? The letter to medicare needs to say pt needs additional moldable rings and pouches as she changes the wafer and bag daily. She is unable to empty the bag without making a mess. Therefore she changes the bag daily. documented in this encounter Plan of Treatment Upcoming Encounters Date Type Department Care Team (Late st Contact Info) Description 08/31/2025 10:30 AM EST Office Visit Adult Medicine [address] [phone] Marc Longo MD [address] [place] [address] 11/30/2025 9:45 AM EST Office Visit [address] [phone] Marc Longo MD [address] [place] [address] 06/21/2026 1:15 PM EDT Office Visit [facility] Hematology Oncology [address] [place] [phone] Heide Covarrubias MD [address] [place] [address] documented as of this encounter Visit Diagnoses Not on filedocumented in this encounter Care Teams Card Seller Relationship Specialty Start Date End Date Marc Longo MD [address] [place] [address] PCP - General Internal Medicine 07/14/15 documented as of this encounter
--- OUTSIDE RECORDS SUMMARY | 2025-08-25 21:01 | XMS_ITS | Encounter Summary ---
Author Organization [employer] Address [address] [place] [address] Care Team Providers Care Medical Radiation Dosimetrist Name Role Phone Marc Longo MD Primary Care Provider [phone] Encounter Details Date Type Department Care Team (Late st Contact Info) Description 01/23/2025 Lab Requisition [facility] - Main Lab [address] [place] [address] Courtney Roger MD [address] [place] [address] [phone] Anemia, unspecified; Other disorders of electrolyte and [...] 10:30 AM EST Office Visit Adult Medicine [address] [phone] Marc Longo MD [address] [place] [address] 11/30/2025 9:45 AM EST Office Visit Adult Medicine [address] [phone] Marc Longo MD [address] [place] [address] 06/21/2026 1:15 PM EDT Office Visit [facility] Hematology Oncology [address] [place] [address] Heide Covarrubias MD [address] [place] [address] documented as of this encounter Procedures Procedure [...] mmol/L LAB CHEMISTRY METHOD 01/24/2025 1:37 PM [facility] Potassium 4.3 3.5 - 5.5 mmol/L LAB CHEMISTRY METHOD 01/24/2025 1:37 PM [facility] Chloride 104 96 - 110 mmol/L LAB CHEMISTRY METHOD 01/24/2025 1:37 PM [facility] CO2 28 21 - 32 mmol/L LAB CHEMISTRY METHOD 01/24/2025 1:37 PM [facility] Anion Gap 8 3 - 11 LAB CHEMISTRY METHOD 01/24/2025 1:37 PM [facility] Glucose 91 70 - 100 mg/dL LAB CHEMISTRY METHOD 01/24/2025 1:37 PM [facility] BUN 30(H) 5 - 25 mg/dL LAB CHEMISTRY METHOD 01/24/2025 1:37 PM [facility] Creatinine 0.94 0.50 - 1.10 mg/dL LAB CHEMISTRY METHOD 01/24/2025 1:37 PM EDT [facility] eGFR 73 >=60 mL/min/1. 73m2 LAB CHEMISTRY METHOD 01/24/2025 1:37 PM [facility] Comment:Calculation based on the Chronic Kidney Disease Epidemiology Collaboration (CKD-EPI) equation refit without adjustment for race. BUN/Creatinine Ratio 31.9 LAB CHEMISTRY METHOD 01/24/2025 1:37 PM T [facility] Calcium 9.7 8.5 - 10.5 mg/dL LAB CHEMISTRY METHOD 01/24/2025 1:37 PM [facility] AST (SGOT) 37 10 - 42 unit/L LAB CHEMISTRY METHOD 01/24/2025 1:37 PM [facility] ALT (SGPT) 67(H) 10 - 60 unit/L LAB CHEMISTRY METHOD 01/24/2025 1:37 PM [facility] Alkaline Phosphatase 108 42 - 121 unit/L LAB CHEMISTRY METHOD 01/24/2025 1:37 PM [facility] Total Protein 6.6 6.0 - 8.0 g/dL LAB CHEMISTRY METHOD 01/24/2025 1:37 PM [facility] Albumin 3.4 3.2 - 5.0 g/dL LAB CHEMISTRY METHOD 01/24/2025 1:37 PM [facility] Total Bilirubin 0.3 0.0 - 1.4 mg/dL LAB CHEMISTRY METHOD 01/24/2025 1:37 PM [facility] Blood Venous blood specimen / Unknown Venipuncture / Unknown 01/24/2025 9:25 AM EDT 01/24/2025 11:22 AM EDT us Courtney Roger MD LAB BLOOD ORDERABLES Fin al Result [facility] [address] [place], [place] [address] [phone] * (ABNORMAL) Complete blood count (01/24/2025 9:25 AM EDT) [facility] WBC 8.8 4.8 - 10.8 K/mcL LAB HEMETOLOGY METHOD 01/24/2025 12:19 PM [facility] RBC 3.70(L) 3.80 - 4.80 M/mcL LAB HEMETOLOGY METHOD 01/24/2025 12:19 PM [facility] Hemoglobin 12.4 11.5 - 16.0 g/dL LAB HEMETOLOGY METHOD 01/24/2025 12:19 PM [facility] Hematocrit 37.7 35.0 - 47.0 % LAB HEMETOLOGY METHOD 01/24/2025 12:19 PM [facility] MCV 102.7(H) 79.0 - 98.0 FL LAB HEMETOLOGY METHOD 01/24/2025 12:19 PM [facility] MCH 33.8(H) 27.0 - 32.0 pcg LAB HEMETOLOGY METHOD 01/24/2025 12:19 PM [facility] MCHC 32.9 32.0 - 37.0 g/dL LAB HEMETOLOGY METHOD 01/24/2025 12:19 PM [facility] RDW 12.7 11.0 - 15.0 % LAB HEMETOLOGY METHOD 01/24/2025 12:19 PM [facility] Platelets 142 130 - 400 K/mcL LAB HEMETOLOGY METHOD 01/24/2025 12:19 PM [facility] MPV 11.8(H) 7.0 - 11.0 FL LAB HEMETOLOGY METHOD 01/24/2025 12:19 PM [facility] NRBC 0.0 <1.0 % LAB HEMETOLOGY METHOD 01/24/2025 12:19 PM [facility] NRBC Absolute 0.00 <0.10 K/mcL LAB HEMETOLOGY METHOD 01/24/2025 12:19 PM EDT [facility] Blood Venous blood specimen / Unknown Venipuncture / Unknown 01/24/2025 9:25 AM EDT 01/24/2025 11:22 AM EDT us Courtney Roger MD LAB BLOOD ORDERABLES Fin al Result [facility] [address] [place] [address], documented in this encounter Visit Diagnoses Diagnosis Anemia, unspecified Other disorders of electrolyte and fluid balance, not elsewhere classified documented in this encounter Care Teams Medical Radiation Dosimetrist Relationship Specialty Start Date End Date Marc Longo MD [address] [place] [phone] PCP - General Internal Medicine 07/14/15 documented as of this encounter
--- OUTSIDE RECORDS SUMMARY | 2025-08-25 21:01 | XMS_ITS ---
Author Organization [facility] [address] [place] [address] [place] [phone] Phone Care Team Providers Care Assembly Line Worker Name Role Phone Marc Longo MD Primary Care Provider [phone] Chronic Care Management Status:Identified (Enrolling) Start date:08/18/2025 Enrollment reason:Referred by Care Team Related social drivers of health:[employer] Health Literacy, Food Risk Case Team Name Relationship Phone Rukhsana Escalante RN(Responsible Staff) Care Cheo masters Continued Care and Services Coordination
--- OUTSIDE RECORDS SUMMARY | 2025-08-25 21:01 | XMS_ITS | Encounter Summary ---
Author Organization [facility] Address [address] [place] [address] Phone Care Team Providers Care Scaleman Name Role Phone Shaheed Henley MD Primary Care Provider Unavail able Encounter Details Date Type Department Care Team (Late st Contact Info) Description 03/06/2018 Procedure Pass [facility] [address] [place] [address] Social History Tobacco Use Types Packs/Day Years [...] on filedocumented in this encounter Care Teams Scaleman Relationship Specialty Start Date End Date Shaheed Henley MD PCP - General Endocrinology 02/05/18 documented as of this encounter Additional Source Comments The information contained in this document represents components of the legal health record. It is not the complete legal health record.[facility]
--- OUTSIDE RECORDS SUMMARY | 2025-08-25 21:01 | XMS_ITS | Encounter Summary ---
Author Organization [facility] Address [address] [place] [address] Phone Care Team Providers Care Wind Up Worker Name Role Phone Shaheed Henley MD Primary Care Provider Unavail able Encounter Details Date Type Department Care Team (Late st Contact Info) Description 03/06/[address] [facility] [address] [place] [address] Social History Tobacco Use Types Packs/Day Years [...] on filedocumented in this encounter Care Teams Wind Up Worker Relationship Specialty Start Date End Date Shaheed Henley MD PCP - General Endocrinology 02/05/18 documented as of this encounter Additional Source Comments The information contained in this document represents components of the legal health record. It is not the complete legal health record.[facility]
--- OUTSIDE RECORDS SUMMARY | 2025-08-25 21:01 | XMS_ITS | Encounter Summary ---
Author Organization [facility] Address [address] [place] [address] Phone Care Team Providers Care Medical Officer Name Role Phone Shaheed Henley MD Primary Care Provider Unavail able Encounter Details Date Type Department Care Team (Late st Contact Info) Description 02/13/2025 Procedure Pass [facility] [address] [place] [address] Social History Tobacco Use Types Packs/Day Years [...] on filedocumented in this encounter Care Teams Medical Officer Relationship Specialty Start Date End Date Shaheed Henley MD PCP - General Endocrinology 02/05/18 documented as of this encounter Additional Source Comments The information contained in this document represents components of the legal health record. It is not the complete legal health record.[facility]
--- OUTSIDE RECORDS SUMMARY | 2025-08-25 21:01 | XMS_ITS | Encounter Summary ---
Author Organization [employer] Address [address] [place] [address] Care Team Providers Care Production Floater Name Role Phone Marc Longo MD Primary Care Provider [phone] Encounter Details Date Type Department Care Team (Late st Contact Info) Description 02/13/2025 Lab Requisition [facility] - Main Lab [address] [place] [address] Courtney Roger MD [address] [place] [address] [phone] Anemia, unspecified; Other disorders of electrolyte and [...] 10:30 AM EST Office Visit Adult Medicine [address] [phone] Marc Longo MD [address] [place] [address] 11/30/2025 9:45 AM EST Office Visit Adult Medicine [address] [phone] Marc Longo MD [address] [place] [address] 06/21/2026 1:15 PM EDT Office Visit [facility] Hematology Oncology [address] [place] [phone] Heide Covarrubias MD [address] [place] [address] documented as of this encounter Visit Diagnoses Diagnosis Anemia, unspecified Other disorders of electrolyte and fluid balance, not elsewhere classified documented in this encounter Care Teams Production Floater Relationship Specialty Start Date End Date Marc Longo MD [address] [place] [phone] PCP - General Internal Medicine 07/14/15 documented as of this encounter
--- OUTSIDE RECORDS SUMMARY | 2025-08-25 21:01 | XMS_ITS | Encounter Summary ---
Author Organization [facility] Address [address] [place] [address] Phone Care Team Providers Care Hydraulic Strainer Operator Name Role Phone Shaheed Henley MD Primary Care Provider Unavail able Reason for Referral * MRI/CAT Scan - Closed Specialty Diagnoses / Procedures Referred By Contac t Referred To Contact Procedures CT Abdomen/Pelvis Outside (No Interpretation) Krystyna Trevizo MD Phone: tel: fax: mailto:[email or web address] Referral ID Status Reason Start Date Expiration Date Visits Re quested Visits Authorized [id number] Closed 03/06/2018 03/06/2019 1 1 * MRI/CAT Scan - Closed Specialty Diagnoses / Procedures Referred By Contac t Referred To Contact Procedures CT Abdomen/Pelvis Outside (No Interpretation) Krystyna Trevizo MD Phone: tel: fax: mailto:[email or web address] Referral ID Status Reason Start Date Expiration Date Visits Re quested Visits Authorized [id number] Closed 03/06/2018 03/06/2019 1 1 * MRI/CAT Scan - Closed Specialty Diagnoses / Procedures Referred By Contac t Referred To Contact Procedures CT Abdomen/Pelvis Outside (No Interpretation) Krystyna Trevizo MD Phone: tel: fax: mailto:[email or web address] Referral ID Status Reason Start Date Expiration Date Visits Re quested Visits Authorized [id number] Closed 03/06/2018 03/06/2019 1 1 Encounter Details Date Type Department Care Team (Late st Contact Info) Description 03/06/2018 Transcribe Orders [facility] [address] [place] [address] [address]ido [address] [place] [phone] [email or web address] Social History Tobacco Use Types Packs/Day Years [...] (No Interpretation) (03/06/2018 1:15 AM EDT) N[facility]ative [facility] - 03/06/2018 8:38 AM EDT This [...] W/OUT INTERPRETATION Final Result Performing Organization Address [facility] Co de Phone Number [email or web address] * XR Abdomen Outside (No Interpretation) (03/06/2018 12:15 AM EDT) Narrative [facility] - 03/06/2018 8:38 AM EDT This study is for PACS storage only and not for interpretation. us Krystyna SCOTT OUTSIDE IMAGING W/OUT INTERPRETATION Final Result Performing Organization Address [facility] Co de Phone Number [email or web address] * CT Abdomen/Pelvis Outside (No Interpretation) (03/06/2018 12:00 AM EDT) Narrative [facility] - 03/06/2018 8:38 AM EDT This study is for PACS storage only and not for interpretation. us Krystyna SCOTT OUTSIDE IMAGING W/OUT INTERPRETATION Final Result documented in this encounter Visit Diagnoses Not on filedocumented in this encounter Care Teams Hydraulic Strainer Operator Relationship Specialty Start Date End Date Shaheed Henley MD PCP - General Endocrinology 02/05/18 documented as of this encounter Additional Source Comments The information contained in this document represents components of the legal health record. It is not the complete legal health record.[facility]
--- OUTSIDE RECORDS SUMMARY | 2025-08-25 21:01 | XMS_ITS ---
Author Organization [address] Address [address] [place] [phone] Phone Care Team Providers Care Oil Tester Name Role Phone Marc Longo MD Primary Care Provider [phone] Transitional Care Management Status:Ongoing (Active) Start date:08/17/2025 Enrollment date:08/17/2025 Enrollment reason:Identified using hospital discharge data Case Team Name Relationship Phone Antwan Monroe LPN(Responsible Staff) [employer] Business [employer] Officer Continued Care and Services Coordination
--- OUTSIDE RECORDS SUMMARY | 2025-08-25 21:01 | XMS_ITS | Encounter Summary ---
Author Organization [employer] Address [address] [place] [address] Care Team Providers Care Counselor Aide Name Role Phone Marc Longo MD Primary Care Provider [phone] Encounter Details Date Type Department Care Team (Late st Contact Info) Description 08/18/2025 Referral Triage [facility] Worker Program [address] [place] [phone] Paris Hernandez Social History Tobacco Use Types Packs/Day Years [...] ed Within the last 3 months, ho w many times did you visit the emergency [...] Author No 01/14/2025 6:15 AM EDT Sandoval Yanes, RN * Are you blind or do [...] 10:30 AM EST Office Visit Adult Medicine [address] [phone] Marc Longo MD [address] [place] [address] 11/30/2025 9:45 AM EST Office Visit Adult Medicine [address] [phone] Marc Longo MD [address] [place] [address] 06/21/2026 1:15 PM EDT Office Visit [facility] Hematology Oncology [address] [place] [phone] Heide Covarrubias MD [address] [place] [address] documented as of this encounter Visit Diagnoses Not on filedocumented in this encounter Care Teams Counselor Aide Relationship Specialty Start Date End Date Marc Longo MD [address] [place] [phone] PCP - General Internal Medicine 07/14/15 documented as of this encounter
--- OUTSIDE RECORDS SUMMARY | 2025-08-25 21:01 | XMS_ITS | Encounter Summary ---
Author Organization [facility] Address [address] [place] [id number] Phone Care Team Providers Care Account Service Representative Name Role Phone Shaheed Henley MD Primary Care Provider Unavail able Encounter Details Date Type Department Care Team (Late st Contact Info) Description 02/12/2025 Procedure Pass [facility] Radiology [address] [place] [address] Social History Tobacco Use Types Packs/Day Years [...] 10:28 PM EDT Nelson Brown RN * [place] Suicide Severity Rating Scale (Screener/Recent Self-Report) Question [...] on filedocumented in this encounter Care Teams Account Service Representative Relationship Specialty Start Date End Date Shaheed Henley MD PCP - General Endocrinology 02/05/18 documented as of this encounter Additional Source Comments The information contained in this document represents components of the legal health record. It is not the complete legal health record.[facility]
[2025-08-25 21:32] VITALS: BP 168/102; PULSE 101; RESP 20; TEMP 36.4; O2SAT 100
--- NOTE | 2025-08-25 22:36 | PC.NURSE ---
patient given chocolate ice cream for Po change. declined anyother food or drinks
[2025-08-25 23:05] VITALS: BP 155/70; PULSE 99; RESP 16; TEMP 36.4; O2SAT 93
[2025-08-25 23:08] VITALS: BP 155/70; PULSE 99; RESP 16; TEMP 36.4; O2SAT 93
== END 2025-08-25 23:10 | disposition home or self-care (01) ==
PROVIDERS: Emergency Provider Emergency Medicine; PCP Internal Medicine
DX: R10.9 Unspecified abdominal pain (principal); R14.0 Abdominal distension (gaseous); F79 Unspecified intellectual disabilities; I12.9 Hypertensive chronic kidney disease with stage 1 through stage 4 chronic kidney disease, or unspecified chronic kidney disease; N18.9 Chronic kidney disease, unspecified; Z93.3 Colostomy status
CPT/HCPCS: 36415; 74177; 80053; 80076; 81001; 82248; 83690; 85025; 96361; 96374; 96375; 99284; 99285; J1885; J3360; Q9967

== ENCOUNTER 2025-09-23 10:15 | Outpatient (AMB) | payer MEDICARE, MEDICAID, SELFPAY ==
[2025-09-23 10:22] VITALS: BMI 30.7
--- NOTE | 2025-09-23 10:22 | MHC.OFFVIS ---
Vital Signs 09/23/25 10:22 Height 4 ft 11 in Weight 152 lb 1.903 oz BMI 30.7 Comment pt refused vituals Intake Visit Reasons: llq pain Allergies Opioids - Morphine Analogues (OPIOIDS - MORPHINE ANALOGUES) Allergy (Severe, Verified 08/25/25 16:47) NAUSEA, HIVES, STOPS BREATHING HPI HPI llq pain: Details: Patient is a 55-year-old female with PMH of intellectual disability, nicotine dependence, asthma, anxiety, depression, PTSD, hyperlipidemia, hypertension, colostomy s/p left hemicolectomy. Patient is accompanied by her mother Isadora and Denise, MOTOR EQUIPMENT SERGEANT. The abdominal pain has been an ongoing issue, leading to an ER visit on 08/25/[address] scan showed stable bile duct dilation of 1.4-1.5 cm with no biliary stones or ampullary masses. 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 GI accounting consultant at time of recent ER visit recommended repeat imaging or further testing like an ERCP but the patient left the ER due to agitation. Mother shares the ductal dilation has been present since the removal of her gallbladder approx 5-6 years ago. The patient has a colostomy, which was placed on January 17 of this year due to rectal prolapse. The surgeon reportedly informed her that the colostomy would never be reversed, which has been a significant source of anxiety. She experiences constipation with hard, ball-like stools, which has improved with the use of MiraLax. States PCP will no longer provider prescripton for colostomy supplies and will need our office to take over. Mother reports Claire's appetitie is poor, limited fiber. Shares this improved when they were living together but Claire has return to a poor diet and lifestyle, including daily marijuana use and cigarette smoking. Her medical history is notable for significant mental health issues including anxiety, a lipoma-rich adrenal adenoma, heart murmur, and a history of difficult intubation with post-sedation agitation and nausea. Patient denies: fever/chills, n/v, pyrosis, regurgitation,dysphasia, unintentional wt loss, ab pain or melena/hematochezia. Social hx: -denies ETOH use -smokes marijuana daily, denies other recreational drug use -current 1 PPD smoker - family hx as below -denies personal hx of CA -post sedation agitation/nausea, otherwise tolerated anesthesia in the past without difficulty. [facility], [facility] Medical History (Updated 09/25/25 @ 12:35 by Grace Mena CNP) Constipation Adjustment disorder with mixed disturbance of emotions and conduct in remission CKD stage G3b/A1, GFR 30-44 and albumin creatinine ratio <30 mg/g Marijuana use Tobacco dependence HLD (hyperlipidemia) Asthma ERIN (iron deficiency anemia) GERD (gastroesophageal reflux disease) HTN (hypertension) Anxiety Intellectual disability Acute adjustment disorder with mixed disturbance of emotions and conduct PTSD (post-traumatic stress disorder) MDD (major depressive disorder), recurrent severe, without psychosis Surgical History Hx of cholecystectomy Previous back surgery Social History Household Members: Significant Other Household Members Other:: roomate Housing: Apartment Do you presently have visiting nurse or other home services: Yes ([employer] services - 5 days week for 2 hours a day) Comment: 5 minute checks Patient Tobacco Use Status: Current everyday Tobacco user Tobacco use type: Cigarette Cigarette Packs Per Day: 1 Cigarettes Per Day: 20.0 e-Cigarette/Vaping Use: Never Used Second Hand Smoke Exposure: No Substance Use Type: Marijuana Advance Directives Date on File: 02/09/25 service: No Sexual orientation: Straight/Heterosexual Review of Systems Const Reports as per HPI ENT Reports as per HPI Card Reports as per HPI Resp Reports as per HPI GI Reports abdominal pain Reports as per HPI Physical Exam Vital Signs: BMI result Body Mass Index 30.7 Const General: healthy appearing, no acute distress and well developed Nutritional Appearance: average body habitus Orientation/consciousness: patient oriented x3 HEENT Head: Yes normal to inspection, Yes normocephalic and Yes atraumatic General nose exam: Nasal discharge present (left nares) mucoid Face and sinus: Yes normal facial exam Mouth: lip abnormal (dry) Eyes General: appearance normal, both eyes and all related structures Neck Neck: Yes normal visual inspection Resp Effort & Inspection: normal respiratory effort, able to speak in complete sentences, no tracheal deviation and symmetric chest movement Cardio Jugular venous distension: no JVD GI Other: LLQ : colostomy bag completely full with brown color stool noted Neuro General: patient oriented x3 Gait exam (Neuro): Normal gait present Psych Appearance: grossly normal Mental Status: mental status grossly normal Speech and movement: Normal speech and movement present Affect: Anxious affect present and Irritable affect present Attitude: Guarded attititude/behavior present and Refuses to answer (attititude/behavior) Thought process: Circumstantial thought process present Insight: Fair insight present (Psych) and Limited insight present (Psych) Judgement: Fair judgement present (Psych) and Limited judgement present (Psych) Results Reviewed Results Reviewed: Date of Service: 08/25/25 Procedure(s): CT abdomen pelvis w IV con Accession Number(s): [id number] cc: Marija Beach-; Marc Longo III, MD~ Report Number: [id number]: Total DLP = 0.00 mGy-cm Reason for Exam: Abdominal Pain CLINICAL HISTORY: Abdominal Pain CT abdomen and pelvis with contrast Comparison: CT/REG/SR - CT ABDOMEN PELVIS W IV CON - 08/16/25 22:45 EST Findings: Significant respiratory motion. Partially visualized heart and lung bases are unremarkable. Stable appearance of multiple hepatic cysts. Liver otherwise unremarkable. Stable degree of intrahepatic and extrahepatic biliary dilation, with the common bile duct measuring 1.4 cm. No radiopaque biliary stones or ampullary masses are seen. Finding possibly related to post cholecystectomy. Cholecystectomy. Pancreas and spleen are unremarkable. Stable small bilateral adrenal nodules. The kidneys are unremarkable. No urolithiasis. 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 The cecum is deep within the pelvis. No bowel obstruction, pneumoperitoneum, or pneumatosis. Appendix not visualized and no secondary signs of acute appendicitis. Urinary bladder underdistended, limiting evaluation. Uterus and adnexa unremarkable. No pathologically enlarged lymph nodes or abdominopelvic free fluid. Osseous structures are unremarkable. IMPRESSION: Left hemicolectomy and left lower quadrant colostomy. No acute findings in the gastrointestinal tract. Stable degree of intrahepatic and extrahepatic biliary tree dilation without radiopaque biliary tree stones or ampullary mass is visualized. May be seen post cholecystectomy. If concern for acute biliary obstruction, consider MRCP or ERCP. No significant change from 08/16/2025 CT. This document has been electronically signed by: Domo Rousseau MD on 08/25/2025 21:31:59 Date of Service: 08/17/25 Procedure(s): MR MRCP Accession Number(s): [id number] cc: Ronaldo Veras MD; Marc Longo III Reason for Exam: Dilated CBD, abd pain EXAMINATION: MR MRCP WITHOUT CONTRAST CLINICAL INFORMATION: Dilated biliary system. Abdominal pain. COMPARISON: Correlated to CT dated August 16, 2025. TECHNIQUE: MR MRCP is performed without gadolinium contrast. Axial and coronal T2 haste sequences. Axial and coronal T2 fat-sat haste sequences. Coronal oblique T2 fat-sat single slice. MRCP radial T2 fat-sat. Axial in and out of 3-D phase sequences. 3-D space MRCP triggered. FINDINGS: Intra and extrahepatic biliary ductal dilatation. The common bile duct maximum dimension is 15 mm. There is an abrupt cut off at the junction with the second portion of the duodenum. No intraluminal signal abnormality or filling defects. The main pancreatic duct measures 2 mm. Ancillary findings: Liver measures 15 cm. There are few scattered, thin septated fluid signal characteristic lesions throughout the parenchyma, the largest measures 13 mm. The main portal vein, hepatic veins and intrahepatic portion of the IVC demonstrated normal flow voids signal. Status post cholecystectomy. No peripancreatic fluid collections. No gross solid or cystic lesion in the pancreas. Spleen measures 8 cm. No gross solid or cystic lesion. There are less than 15 mm isointense T1 and T2 nodular lesions in the adrenal glands with drop-off signal. Subcentimeter cystic lesions in the left kidney. No hydronephrosis in either kidney. No ascites. There is an ostomy in the left hemiabdomen. No intestinal obstruction pattern. 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 Recommend direct inspection. No choledocholithiasis. Lipid rich adenoma, both adrenal glands.. Electronically signed by: Lyndon Davis MD 08/17/2025 02:08 PM Laboratory Tests 08/25/25 17:05 Total Bilirubin 0.4 Direct Bilirubin 0.2 AST 20 ALT 15 Alkaline Phosphatase 84 Total Protein 7.7 Albumin 4.9 Lipase 38 Assessment & Plan Assessment & Plan (1) Abdominal pain: Code(s): R10.9 - Unspecified abdominal pain Category: Medical Qualifiers: Abdominal location: unspecified location Qualified Code(s): R10.9 - Unspecified abdominal pain Plan: The patient's pain is likely multifactorial, with a constipation component that has improved with MiraLax. - The persistent primary concern is the biliary ductal dilation, suspicious for Sphincter of Oddi dysfunction or a stricture, as seen on MRCP. - Given her normal liver function tests, the issue is not acutely urgent. - Will consult with Dr. Deng, the proceduralist who performs ERCP, to assess her candidacy for the procedure. - An ERCP would serve to both diagnose and potentially treat a stricture via dilation under sedation. - Will communicate recommendation to the family to coordinate next steps. (2) Constipation: Code(s): K59.00 - Constipation, unspecified Category: Medical Qualifiers: Constipation type: unspecified constipation type Qualified Code(s): K59.00 - Constipation, unspecified Plan: Chronic, intermittent. Likely secondary to diet/lifestyle. Continue daily MiraLax as it has been effective. - Encouraged increased dietary fruit intake, such as applesauce and peaches, to help soften stool. (3) Colostomy care: Comment: placed 01/2025 for rectal prolapse management Code(s): Z43.3 - Encounter for attention to colostomy Category: Medical Plan: Requested the family provide a copy of the PCP's prescription for colostomy supplies to facilitate management and address insurance coverage issues for items like rings. Plan Follow-up TBD or sooner as needed Time: I spent a total of 45 minutes on the date of encounter which includes: Preparing to see the patient (reviewed previous documentation, test results and medical history) Performing a medically appropriate exam and/or evaluation Ordering medications, tests, and procedures Documenting clinical information in the health record Patient Instructions: -Continue taking MiraLax every day to prevent constipation. - Try to eat more fruit, like applesauce or peaches, to help keep your stools soft. - Our office will call you after I have discussed your case with Dr. Deng to let you know the plan for the possible ERCP procedure. - Please send our office an updated list of all your medications. - Please also send a copy of the prescription for your colostomy supplies so we can help manage them. - No other changes were made to your care plan today. Coding Level of Care Code New Pt New Pt Level 4 (79799) Patient Type New Diagnoses Abdominal pain, unspecified abdominal location R10.9 Abdominal location: unspecified location Constipation, unspecified constipation type K59.00 Constipation type: unspecified constipation type Colostomy care Z43.3
--- OUTSIDE RECORDS SUMMARY | 2025-09-23 11:36 | XMS_ITS | Clinical Summary ---
Author Organization [facility] Prior to 03/05/[address] [place] [address] Care Team Providers Care Acid Crane Operator Name Role Phone Marc Longo MD Primary Care Provider [phone] Allergies Active Allergy Reactions Criticality Noted Date Comments Aspirin 04/20/2007 Rash; NOT ALLERGIC PER PATIENT Rash; NOT ALLERGIC PER PATIENT Azithromycin Swelling 09/18/2015 Carisoprodol 07/21/2007 Codeine 11/17/2007 Gi upset Gi upset Diazepam 04/20/2007 gi upset,vom gi upset,vom Gabapentin 07/29/2014 nausea nausea Morphine 04/20/2007 gi upset,vom gi upset,vom Opium 02/02/2018 Oxycodone-Acetaminophen 04/20/2007 gi upset gi upset Rgf-Brb-Jajo-Nasulf-Na Asc-C 08/01/2017 Pheniramine 04/20/2007 Prednisone 02/29/2016 nausea [...] age to complete this topic Care Teams Acid Crane Operator Relationship Specialty Start Date End Date Marc Longo MD PCP - General Internal Medicine 06/24/22
--- OUTSIDE RECORDS SUMMARY | 2025-09-23 11:36 | XMS_ITS | Encounter Summary ---
Author Organization [facility] Address [address] [place] [address] Care Team Providers Care Embroidery Patternmaker Name Role Phone Marc Longo MD Primary Care Provider [phone] Reason for Visit * Reason Onset Date Comments Fitting for DME 08/18/2025 Encounter Details Date Type Department Care Team ([facility] Contact Info) Description 08/18/2025 Telephone Adult Medicine [address] [phone] Hilda Knight, JUSTIN Social History Tobacco Use [...] documented in this encounter Progress Notes * Billie Jasso - 09/19/2025 12:50 PM EST Patient mother Isadora is following up on this request. She states letter should have been written [employer] to help get items approved for patient. Isadora states she spoke with Dr Longo about what was needed and would now like for the office to follow up as patient will be running out soon and is starting to get anxiety over it. * Modesta Nicolas - 08/24/2025 3:20 PM [...] needs to go to Medicare directly, not [place]. Isadora states running out of these supplies [...] 9:45 AM EST Office Visit Adult Medicine [address] [phone] Marc Longo MD [address] [place] [address] 06/21/2026 1:15 PM EDT Office Visit [facility] Hematology Oncology [address] [place] [phone] Heide Covarrubias MD [address] [place] [address] documented as of this encounter Visit Diagnoses Not on filedocumented in this encounter Care Teams Embroidery Patternmaker Relationship Specialty Start Date End Date Marc Longo MD [address] [place] [address] PCP - General Internal Medicine 07/14/15 documented as of this encounter
--- OUTSIDE RECORDS SUMMARY | 2025-09-23 11:36 | XMS_ITS | Encounter Summary ---
Author Organization [facility] Address [address] [place] [address] Care Team Providers Care Tail Ripper Name Role Phone Marc Longo MD Primary Care Provider [phone] Encounter Details Date Type Department Care Team (Late st Contact Info) Description 01/23/2025 Lab Requisition [facility] - Main Lab [address] [place] [address] Courtney Roger MD [address] [place] [phone] Anemia, unspecified; Other disorders of electrolyte and [...] 9:45 AM EST Office Visit Adult Medicine [address] [phone] Marc Longo MD [address] [place] [address] 06/21/2026 1:15 PM EDT Office Visit [facility] Hematology Oncology [address] [place] [phone] Heide Covarrubias MD [address] [place] [address] documented as of this encounter Procedures Procedure [...] mmol/L LAB CHEMISTRY METHOD 01/24/2025 1:37 PM [facility] Potassium 4.3 3.5 - 5.5 mmol/L LAB CHEMISTRY METHOD 01/24/2025 1:37 PM [facility] Chloride 104 96 - 110 mmol/L LAB CHEMISTRY METHOD 01/24/2025 1:37 PM [facility] CO2 28 21 - 32 mmol/L LAB CHEMISTRY METHOD 01/24/2025 1:37 PM [facility] Anion Gap 8 3 - 11 LAB CHEMISTRY METHOD 01/24/2025 1:37 PM [facility] Glucose 91 70 - 100 mg/dL LAB CHEMISTRY METHOD 01/24/2025 1:37 PM [facility] BUN 30(H) 5 - 25 mg/dL LAB CHEMISTRY METHOD 01/24/2025 1:37 PM [facility] Creatinine 0.94 0.50 - 1.10 mg/dL LAB CHEMISTRY METHOD 01/24/2025 1:37 PM [facility] eGFR 73 >=60 mL/min/1. 73m2 LAB CHEMISTRY METHOD 01/24/2025 1:37 PM [facility] Comment:Calculation based on the Chronic Kidney Disease Epidemiology Collaboration (CKD-EPI) equation refit without adjustment for race. BUN/Creatinine Ratio 31.9 LAB CHEMISTRY METHOD 01/24/2025 1:37 PM EDT [facility] Calcium 9.7 8.5 - 10.5 mg/dL LAB CHEMISTRY METHOD 01/24/2025 1:37 PM EDT [facility] AST (SGOT) 37 10 - 42 unit/L LAB CHEMISTRY METHOD 01/24/2025 1:37 PM EDT [facility] ALT (SGPT) 67(H) 10 - 60 unit/L LAB CHEMISTRY METHOD 01/24/2025 1:37 PM EDT [facility] Alkaline Phosphatase 108 42 - 121 unit/L LAB CHEMISTRY METHOD [facility] Total Protein 6.6 6.0 - 8.0 g/dL LAB CHEMISTRY METHOD 01/24/2025 1:37 PM [facility] Albumin 3.4 3.2 - 5.0 g/dL LAB CHEMISTRY METHOD 01/24/2025 1:37 PM EDT [facility] Total Bilirubin 0.3 0.0 - 1.4 mg/dL LAB CHEMISTRY METHOD 01/24/2025 1:37 PM [facility] Blood Venous blood specimen / Unknown Venipuncture / Unknown 01/24/2025 9:25 AM EDT 01/24/2025 11:22 AM EDT us Courtney Roger MD LAB BLOOD ORDERABLES Fin al Result [facility] [address] [place] [address], * (ABNORMAL) Complete blood count (01/24/2025 9:25 AM EDT) WBC 8.8 4.8 - 10.8 K/mcL LAB HEMETOLOGY METHOD 01/24/2025 12:19 PM EDT [facility] RBC 3.70(L) 3.80 - 4.80 M/mcL LAB HEMETOLOGY METHOD 01/24/2025 12:19 PM [facility] Hemoglobin 12.4 11.5 - 16.0 g/dL LAB HEMETOLOGY METHOD 01/24/2025 12:19 PM [facility] Hematocrit 37.7 35.0 - 47.0 % LAB HEMETOLOGY METHOD 01/24/2025 12:19 PM [facility] MCV 102.7(H) 79.0 - 98.0 FL LAB HEMETOLOGY METHOD 01/24/2025 12:19 PM [facility] MCH 33.8(H) 27.0 - 32.0 pcg LAB HEMETOLOGY METHOD 01/24/2025 12:19 PM [facility] MCHC 32.9 32.0 - 37.0 g/dL LAB HEMETOLOGY METHOD 01/24/2025 12:19 PM [facility] RDW 12.7 11.0 - 15.0 % LAB HEMETOLOGY METHOD 01/24/2025 12:19 PM [facility] Platelets 142 130 - 400 K/mcL LAB HEMETOLOGY METHOD 01/24/2025 12:19 PM [facility] MPV 11.8(H) 7.0 - 11.0 FL LAB HEMETOLOGY METHOD 01/24/2025 12:19 PM [facility] NRBC 0.0 <1.0 % LAB HEMETOLOGY METHOD 01/24/2025 12:19 PM [facility] NRBC Absolute 0.00 <0.10 K/mcL LAB HEMETOLOGY METHOD 01/24/2025 12:19 PM [facility] Blood Venous blood specimen / Unknown Venipuncture / Unknown 01/24/2025 9:25 AM EDT 01/24/2025 11:22 AM EDT us Courtney Roger MD LAB BLOOD ORDERABLES Fin al Result [facility] [address] [place] [address], documented in this encounter Visit Diagnoses Diagnosis Anemia, unspecified Other disorders of electrolyte and fluid balance, not elsewhere classified documented in this encounter Care Teams Tail Ripper Relationship Specialty Start Date End Date Marc Longo MD [address] [place] [phone] PCP - General Internal Medicine 07/14/15 documented as of this encounter
--- OUTSIDE RECORDS SUMMARY | 2025-09-23 11:36 | XMS_ITS | Encounter Summary ---
Author Organization [facility] Address [address] [place] [phone] Phone Care Team Providers Care Furniture Sprayer Name Role Phone Shaheed Henley MD Primary Care Provider Unavail able Reason for Referral * MRI/CAT Scan - Closed Specialty Diagnoses / Procedures Referred By Contac t Referred To Contact Procedures CT Abdomen/Pelvis Outside (No Interpretation) Krystyna Trevizo MD Phone: tel: fax: mailto:[email or web address] Referral ID Status Reason Start Date Expiration Date Visits Re quested Visits Authorized [id number] Closed 03/06/2018 03/06/2019 1 1 * MRI/CAT Scan - Closed Specialty Diagnoses / Procedures Referred By Contac t Referred To Contact Procedures CT Abdomen/Pelvis Outside (No Interpretation) Krystyna Trevizo MD Phone: tel: fax: mailto:[email or web address] Referral ID Status Reason Start Date Expiration Date Visits Re quested Visits Authorized [id number] Closed 03/06/2018 03/06/2019 1 1 * MRI/CAT Scan - Closed Specialty Diagnoses / Procedures Referred By Contac t Referred To Contact Procedures CT Abdomen/Pelvis Outside (No Interpretation) Krystyna Trevizo MD Phone: tel: fax: mailto:[email or web address] Referral ID Status Reason Start Date Expiration Date Visits Re quested Visits Authorized [id number] Closed 03/06/2018 03/06/2019 1 1 Encounter Details Date Type Department Care Team (Late st Contact Info) Description 03/06/2018 Transcribe Orders [facility] [address] [place] [address] Guido Edwards [address] [place] [address] [email or web address] Social History Tobacco Use Types Packs/Day [...] (No Interpretation) (03/06/2018 1:15 AM EDT) Narrative [facility] - 03/06/2018 8:38 AM EDT This study [...] W/OUT INTERPRETATION Final Result Performing Organization Address [facility] Co de Phone Number [facility] * XR Abdomen Outside (No Interpretation) (03/06/2018 12:15 AM EDT) Narrative [facility] - 03/06/2018 8:38 AM EDT This study is for PACS storage only and not for interpretation. us Krystyna SCOTT OUTSIDE IMAGING W/OUT INTERPRETATION Final Result Performing Organization Address [facility] Co de Phone Number [facility] * CT Abdomen/Pelvis Outside (No Interpretation) (03/06/2018 12:00 AM EDT) Narrative [facility], DOCUMENTATION - 03/06/2018 8:38 AM EDT This study is for PACS storage only and not for interpretation. us Krystyna SCOTT OUTSIDE IMAGING W/OUT INTERPRETATION Final Result documented in this encounter Visit Diagnoses Not on filedocumented in this encounter Care Teams Furniture Sprayer Relationship Specialty Start Date End Date Shaheed Henley MD PCP - General Endocrinology 02/05/18 documented as of this encounter Additional Source Comments The information contained in this document represents components of the legal health record. It is not the complete legal health record.[facility]
--- OUTSIDE RECORDS SUMMARY | 2025-09-23 11:36 | XMS_ITS | Encounter Summary ---
Author Organization [facility] Address [address] [place] [address] Phone Care Team Providers Care Ent Consultant Name Role Phone Shaheed Henley MD Primary Care Provider Unavail able Encounter Details Date Type Department Care Team (Late st Contact Info) Description 03/06/2018 Procedure Pass [facility] [address] [place] [address] Social History Tobacco Use Types Packs/Day Years [...] on filedocumented in this encounter Care Teams Ent Consultant Relationship Specialty Start Date End Date Shaheed Henley MD PCP - General Endocrinology 02/05/18 documented as of this encounter Additional Source Comments The information contained in this document represents components of the legal health record. It is not the complete legal health record.[facility]
--- OUTSIDE RECORDS SUMMARY | 2025-09-23 11:36 | XMS_ITS | Encounter Summary ---
Author Organization [facility] Address [address] [place] [address] Phone Care Team Providers Care Leather Goods I Assembler Name Role Phone Shaheed Henley MD Primary Care Provider Unavail able Encounter Details Date Type Department Care Team (Late st Contact Info) Description 02/12/2025 Procedure Pass [facility] Radiology [address] [place] [address] Social History Tobacco Use Types Packs/Day Years [...] on filedocumented in this encounter Care Teams Leather Goods I Assembler Relationship Specialty Start Date End Date Shaheed Henley MD PCP - General Endocrinology 02/05/18 documented as of this encounter Additional Source Comments The information contained in this document represents components of the legal health record. It is not the complete legal health record.[facility]
--- OUTSIDE RECORDS SUMMARY | 2025-09-23 11:36 | XMS_ITS | Encounter Summary ---
Author Organization [facility] Address [address] [place] [address] Phone Care Team Providers Care Roof Truss Builder Name Role Phone Shaheed Henley MD Primary Care Provider Unavail able Encounter Details Date Type Department Care Team (Late st Contact Info) Description 02/13/2025 Procedure Pass [facility]iology [address] [place] [address] Social History Tobacco Use Types Packs/Day Years [...] on filedocumented in this encounter Care Teams Roof Truss Builder Relationship Specialty Start Date End Date Shaheed Henley MD PCP - General Endocrinology 02/05/18 documented as of this encounter Additional Source Comments The information contained in this document represents components of the legal health record. It is not the complete legal health record.[facility]
--- OUTSIDE RECORDS SUMMARY | 2025-09-23 11:36 | XMS_ITS | Encounter Summary ---
Author Organization [facility] Address [address] [place] [address] Phone Care Team Providers Care Client Renewal Specialist Name Role Phone Shaheed Henley MD Primary Care Provider Unavail able Encounter Details Date Type Department Care Team (Late st Contact Info) Description 03/06/2018 Procedure Pass [facility] [address] [place] [address] Social History Tobacco Use Types Packs/Day Years [...] on filedocumented in this encounter Care Teams Client Renewal Specialist Relationship Specialty Start Date End Date Shaheed Henley MD PCP - General Endocrinology 02/05/18 documented as of this encounter Additional Source Comments The information contained in this document represents components of the legal health record. It is not the complete legal health record.[facility]
--- OUTSIDE RECORDS SUMMARY | 2025-09-23 11:36 | XMS_ITS | Encounter Summary ---
Author Organization [facility] Address [address] [place] [address] Phone Care Team Providers Care Decommissioning Well Site Manager Name Role Phone Shaheed Henley MD Primary Care Provider Unavail able Encounter Details Date Type Department Care Team (Late st Contact Info) Description 03/06/2018 Procedure Pass [facility] [address] [place] [address] Social History Tobacco Use Types Packs/Day Years [...] on filedocumented in this encounter Care Teams Decommissioning Well Site Manager Relationship Specialty Start Date End Date Shaheed Henley MD PCP - General Endocrinology 02/05/18 documented as of this encounter Additional Source Comments The information contained in this document represents components of the legal health record. It is not the complete legal health record.[facility]
--- OUTSIDE RECORDS SUMMARY | 2025-09-23 11:36 | XMS_ITS | Encounter Summary ---
Author Organization [facility] Address [address] [place] [address] Care Team Providers Care Sales And Operations Trainee Name Role Phone Marc Longo MD Primary Care Provider [phone] Encounter Details Date Type Department Care Team (Late st Contact Info) Description 08/18/2025 Referral Triage [facility] Worker Program [address] [place] [phone] Paris Hernandez Social History Tobacco Use [...] 01/14/2025 6:15 AM EDT Alfie Yanes RN documented as of this encounter [...] 9:45 AM EST Office Visit Adult Medicine [address] [phone] Marc Longo MD [address] [place] [address] 06/21/2026 1:15 PM EDT Office Visit [facility] Hematology Oncology [address] [place] [phone] Heide Covarrubias MD [address] [place] [address] documented as of this encounter Visit Diagnoses Not on filedocumented in this encounter Care Teams Sales And Operations Trainee Relationship Specialty Start Date End Date Marc Longo MD [address] [place] [address] PCP - General Internal Medicine 07/14/15 documented as of this encounter
--- OUTSIDE RECORDS SUMMARY | 2025-09-23 11:37 | XMS_ITS | Encounter Summary ---
Author Organization [facility] Address [address] [place] [address] Care Team Providers Care Pvc Monitor Name Role Phone Marc Longo MD Primary Care Provider [phone] Encounter Details Date Type Department Care Team (Late st Contact Info) Description 02/05/2025 Lab Requisition [facility] - Main Lab [address] [place] [address] Courtney Roger MD [address] [place] [address] [phone] Anemia, unspecified; Other disorders of electrolyte and [...] 9:45 AM EST Office Visit Adult Medicine [address] [phone] Marc Longo MD [address] [place] [address] 06/21/2026 1:15 PM EDT Office Visit [facility] Hematology Oncology [address] [place] [phone] Heide Covarrubias MD [address] [place] [address] documented as of this encounter Visit Diagnoses Diagnosis Anemia, unspecified Other disorders of electrolyte and fluid balance, not elsewhere classified documented in this encounter Care Teams Pvc Monitor Relationship Specialty Start Date End Date Marc Longo MD [address] [place] [phone] PCP - General Internal Medicine 07/14/15 documented as of this encounter
--- OUTSIDE RECORDS SUMMARY | 2025-09-23 11:37 | XMS_ITS ---
Author Organization [facility] [address] [place] [address] [place] [phone] Phone Care Team Providers Care Heat Treat Technician Name Role Phone Marc Longo MD Primary Care Provider [phone] Chronic Care Management Status:Ongoing (Active) Start date:08/18/2025 Enrollment date:08/26/2025 Enrollment reason:Referred by Care Team Related social drivers of health: Health Literacy, Food Risk Case Team Name Relationship Phone Rukhsana Escalante RN(Responsible Staff) Care Cheo masters Continued Care and Services Coordination
--- OUTSIDE RECORDS SUMMARY | 2025-09-23 11:37 | XMS_ITS | Encounter Summary ---
Author Organization [facility] Address [address] [place] [address] Care Team Providers Care Steel Barrel Reamer Name Role Phone Marc Longo MD Primary Care Provider [phone] Encounter Details Date Type Department Care Team (Late st Contact Info) Description 02/13/2025 Lab Requisition [facility] - Main Lab [address] [place] [address] Courtney Roger MD [address] [place] [address] [phone] Anemia, unspecified; Other disorders of electrolyte and [...] 9:45 AM EST Office Visit Adult Medicine [address] [phone] Marc Longo MD [address] [place] [address] 06/21/2026 1:15 PM EDT Office Visit [facility] Hematology Oncology [address] [place] [phone] Heide Covarrubias MD [address] [place] [address] documented as of this encounter Visit Diagnoses Diagnosis Anemia, unspecified Other disorders of electrolyte and fluid balance, not elsewhere classified documented in this encounter Care Teams Steel Barrel Reamer Relationship Specialty Start Date End Date Marc Longo MD [address] [place] [phone] PCP - General Internal Medicine 07/14/15 documented as of this encounter
--- OUTSIDE RECORDS SUMMARY | 2025-09-23 11:37 | XMS_ITS | Clinical Summary ---
Author Organization [address] Address [address] [place] [phone] Phone Care Team Providers Care Supervisor Car And Yard Name Role Phone Marc Longo MD Primary Care Provider [phone] Allergies Active Allergy Reactions Criticality Noted Date Comments Aspirin 04/20/2007 Rash; NOT ALLERGIC PER PATIENT Azithromycin Swelling 09/18/2015 Carisoprodol 07/21/2007 Codeine 11/17/2007 Gi upset Diazepam 04/20/2007 Valium gi upset,vom Gabapentin 07/29/2014 nausea Horse Dander 04/20/2007 Horse Serum animal Morphine Sulfate 04/20/2007 gi upset,vom Opium Tincture 02/02/2018 Oxycodone-Acetaminophen 04/20/2007 gi upset [id number] 08/01/2017 Moviprep [[id number] [id number]-[id number]] Prednisone 02/29/2016 nausea Propoxyphene Other 12/10/2007 Cannot take d/t to depression meds Propoxyphene N-Acetaminophen 06/25/2010 Medications risperiDONE (RisperDAL) 0.5 mg tablet Take 1 Tab by mouth at bedtime. 03/10/20 Active traZODone (DESYREL) 100 mg tablet Take 125 mg by mouth at bedtime. 03/26/20 22 Active vitamin B complex (B COMPLEX-VITAMI N B12 ORAL) Take by mouth 1 (one) time each day. Active hydrOXYzine HCL (ATARAX) 25 mg tablet Take 2 tablets (50 mg total) by mouth 3 (three) times a day if needed. 02/09/20 25 Active folic acid (FOLVITE) 1 mg tablet Take 1 tablet (1,000 mcg total) by mouth 1 (one) time each day. 90 tablet 1 03/02/20 25 Active cyanocobalamin 2,000 mcg ER tablet [...] day 60 tablet 5 08/24/20 25 Active venlafaxine XR (EFFEXOR-XR) 37.5 mg 24 hr capsule Take 1 capsule (37.5 mg total) by mouth 1 (one) time each day. Do not crush or chew. 30 each 1 08/31/20 25 026 Active metoprolol succinate (TOPROL-XL) 25 mg 24 hr tablet TAKE 1 TABLET BY MOUTH ONCE DAILY - DO NOT CRUSH OR chew 30 tablet 5 09/07/20 25 Active atorvastatin (LIPITOR) 10 mg tablet TAKE 1 TABLET BY MOUTH AT BEDTIME 30 tablet 5 09/07/20 25 Active hydroCHLOROthi azide (HYDRODIURIL) 25 mg tablet TAKE 1 TABLET BY MOUTH ONCE DAILY 30 tablet 5 09/07/20 25 Active polyethylene glycol (MIRALAX) 17 gram packet Take 17 g by mouth 1 (one) time each day. 1530 g 1 09/22/20 25 026 Active sertraline (ZOLOFT) 100 mg tablet Take 1.5 tablets (150 mg total) by mouth 1 (one) time each day. 04/06/20 19 025 Discontinued atorvastatin (LIPITOR) 10 mg tablet Take 1 tablet (10 mg total) by mouth at bedtime. 90 tablet 1 03/02/20 25 025 Discontinued metoprolol succinate (TOPROL-XL) 25 mg 24 hr tablet Take 1 tablet (25 mg total) by mouth 1 (one) time each day. Do not crush or chew. 90 tablet 1 03/02/20 25 025 Discontinued hydroCHLOROthi azide (HYDRODIURIL) 25 mg tablet Take 1 tablet (25 mg total) by mouth 1 (one) time each day. 30 each 5 03/03/20 25 025 Discontinued Active Problems Problem Noted Date Diagnosed Date Constipation, chronic 04/16/2024 Chronic low back pain 02/07/2022 CKD (chronic kidney disease) stage 3, GFR 30-59 ml/min 11/15/2020 Marijuana abuse 11/14/2020 Thrombocytopenia 10/25/2019 Insomnia 07/16/2017 Resolved Problems Problem Noted Date Diagnosed Date Resolved Date Diarrhea 01/14/2025 01/19/2025 Rectal prolapse 04/16/2024 01/19/2025 Encounters Date Type Department Care Team Description 09/19/2025 Telephone Adult Medicine [address] [phone] Marc Longo MD 08/18/2025 Referral Triage [facility] [address] [place] [phone] Paris Hernandez 08/18/[address] [phone] Hilda Knight RN from Last 3 Months Immunizations Immunization Administration Dates Next Due Td Tetanus diptheria (Tdvax) 7yo and older 11/19 Tdap Tetanus diptheria acell ular pertussis (Boostrix; Adacel) 7yo and older 06/07/2008 Surgical History Surgery Date Site/Laterality Comments BACK SURGERY 1996 PROCEDURE: HISTORICAL BACK SURGERY; COMMENT: multiple back procedures ESOPHAGOGASTRODUODENOSCOPY 08/01/2008 PROCEDURE: [facility] EGD TRANSORAL BIOPSY SINGLE/MULTIPLE; COMMENT: duodenal bx: wnl COLONOSCOPY W/ BIOPSIES 08/01/2008 PROCEDURE: [facility] COLONOSCOPY W/BIOPSY SINGLE/MULTIPLE; COMMENT: colonic bx: wnl TUBAL LIGATION 2002 PROCEDURE: HISTORICAL TUBAL LIGATION ENDOMETRIAL ABLATION 05/25/2010 PROCEDURE: [facility] ENDOMETRIAL ABLTJ THERMAL W/O HYSTEROSCOPIC GUID; COMMENT: [...] Orientation Straight 01/12/2025 8: 36 AM EDT Last Filed Vital Signs Vital Sign [...] 9:45 AM EST Office Visit Adult Medicine [address] [place], [place] [phone] Marc Longo MD [address] [place], [place] 06/21/2026 1:15 PM EDT Office Visit [facility] Hematology Oncology [address] [place] [phone] Heide Covarrubias MD [address] [place] [address] Health Maintenance Due Date Last Done Comments COVID-19 Vaccine (#1) 1976 Hepatitis A Vaccines (1 of 2 - Risk 2-dose series) 1990 Hepatitis B Vaccines (1 of 3 - 19+ 3-dose series) 1990 Pneumococcal Vaccine: 50+ Years (1 of 2 - PCV) 1990 Zoster Vaccines (1 of 2) 1990 Cervical Cancer Screening: Pap Smear 12/28/2018 12/29/2015 Medicare Annual Wellness Visit 09/14/2022 Depression [...] Associated Diagnosis Comments COMPREHENSIVE METABOLIC PANEL Routine 06/20/2025 3:30 PM [...] Relevant to Health Maintenance Results * (ABNORMAL) Comprehensive metabolic panel (06/20/2025 3:30 PM EDT) Sodium 137 133 - 145 mmol/L LAB CHEMISTRY METHOD 06/20/2025 6:33 PM EDT [facility] Potassium 3.3(L) 3.5 - 5.5 mmol/L LAB CHEMISTRY METHOD 06/20/2025 6:33 PM EDT [facility] Chloride 102 96 - 110 mmol/L LAB CHEMISTRY METHOD 06/20/2025 6:33 PM [facility] CO2 29 21 - 32 mmol/L LAB CHEMISTRY METHOD 06/20/2025 6:33 PM [facility] Anion Gap 6 3 - 11 LAB CHEMISTRY METHOD 06/20/2025 6:33 PM [facility] Glucose 126(H) 70 - 100 mg/dL LAB CHEMISTRY METHOD 06/20/2025 6:33 PM [facility] BUN 21 5 - 25 mg/dL LAB CHEMISTRY METHOD 06/20/2025 6:33 PM [facility] Creatinine 1.08 0.50 - 1.10 mg/dL LAB CHEMISTRY METHOD 06/20/2025 6:33 PM [facility] eGFR 61 >=60 mL/min/1. 73m2 LAB CHEMISTRY METHOD 06/20/2025 6:33 PM [facility] Comment:Calculation based on the Chronic Kidney Disease Epidemiology Collaboration (CKD-EPI) equation refit without adjustment for race. BUN/Creatinine Ratio 19.4 LAB CHEMISTRY METHOD 06/20/2025 6:33 PM [facility] Calcium 9.8 8.5 - 10.5 mg/dL LAB CHEMISTRY METHOD 06/20/2025 6:33 PM [facility] AST (SGOT) 16 10 - 42 unit/L LAB CHEMISTRY METHOD 06/20/2025 6:33 PM [facility] ALT (SGPT) 17 10 - 60 unit/L LAB CHEMISTRY METHOD 06/20/2025 6:33 PM [facility] Alkaline Phosphatase 96 42 - 121 unit/L LAB CHEMISTRY METHOD 06/20/2025 6:33 PM [facility] Total Protein 7.6 6.0 - 8.0 g/dL LAB CHEMISTRY METHOD 06/20/2025 6:33 PM [facility] Albumin 4.3 3.2 - 5.0 g/dL LAB CHEMISTRY METHOD 06/20/2025 6:33 PM EDT [facility] Total Bilirubin 0.5 0.0 - 1.4 mg/dL LAB CHEMISTRY METHOD 06/20/2025 6:33 PM EDT [facility] Blood Venous blood specimen / Unknown Venipuncture / Unknown 06/20/2025 3:30 PM EDT 06/20/2025 3:30 PM EDT Marc Longo MD LAB BLOOD ORDERABLES Final Resu lt Performing Organization Address City[facility]/ZIP Co de Phone Number [facility] [address] [place] [address], [place] [phone] * Hepatitis panel, acute with reflex to confirmation (01/14/2025 8:38 AM EDT) Pathologist [facility] Hepatitis B Surface Ag Negative Negative LAB CHEMISTRY METHOD 01/14/2025 11:33 AM EDT [facility] Hepatitis A Antibody IgM Negative Negative LAB CHEMISTRY METHOD 01/14/2025 11:33 AM EDT [facility] Hep B Core IgM Negative Negative LAB CHEMISTRY METHOD 01/14/2025 11:33 AM EDT [facility] Hepatitis C Antibody Negative Negative LAB CHEMISTRY METHOD 01/14/2025 11:33 AM EDT [facility] Blood Venous blood specimen / Unknown Venipuncture / Unknown 01/14/2025 8:38 AM EDT 01/14/2025 9:02 AM EDT Mala GOMEZ LAB BLOOD ORDERABLES Final Result Performing Organization Address City/[facility]/ZIP Co de Phone Number [facility] [address] [place] [address], [place] [phone] * Colonoscopy (04/01/2024) Pathologist [facility] Colonoscopy no interpretation , abstracted Anatomical Region [...] Relevant to Health Maintenance Insurance MEDICARE [place]ICAID [place] Advance Directives Documents on File Type Date Recorded Patient Commercial Agent Expl anation Advance Directives and Living Will [...] Agents on File Name Relationship Healthcare [facility] Isadora Ramon Mother Health Care Agent Care Teams Supervisor Car And Yard Relationship Specialty Start Date End Date Marc Longo MD [address] [place] [phone] PCP - General Internal Medicine 07/14/15
--- OUTSIDE RECORDS SUMMARY | 2025-09-23 11:37 | XMS_ITS | Encounter Summary ---
Author Organization [employer] Address [address] [place] [address] Care Team Providers Care Bit Tapper Name Role Phone Marc Lnogo MD Primary Care Provider [phone] Encounter Details Date Type Department Care Team (Late st Contact Info) Description 01/20/2025 Lab Requisition [facility] - Main Lab [address] [place] [address] Courtney Roger MD [address] [place] [address] [phone] Anemia, unspecified; Other disorders of electrolyte and [...] 9:45 AM EST Office Visit Adult Medicine [address] [phone] Marc Longo MD [address] [place] [address] 06/21/2026 1:15 PM EDT Office Visit [facility] Hematology Oncology [address] [place] [phone] Heide Covarrubias MD [address] [place] [address] documented as of this encounter Procedures Procedure [...] mmol/L LAB CHEMISTRY METHOD 01/20/2025 9:50 AM [facility] Potassium 4.5 3.5 - 5.5 mmol/L LAB CHEMISTRY METHOD 01/20/2025 9:50 AM [facility] Chloride 102 96 - 110 mmol/L LAB CHEMISTRY METHOD 01/20/2025 9:50 AM [facility] CO2 32 21 - 32 mmol/L LAB CHEMISTRY METHOD 01/20/2025 9:50 AM [facility] Anion Gap 5 3 - 11 LAB CHEMISTRY METHOD 01/20/2025 9:50 AM [facility] Glucose 113(H) 70 - 100 mg/dL LAB CHEMISTRY METHOD 01/20/2025 9:50 AM [facility] BUN 19 5 - 25 mg/dL LAB CHEMISTRY METHOD 01/20/2025 9:50 AM [facility] Creatinine 0.84 0.50 - 1.10 mg/dL LAB CHEMISTRY METHOD 01/20/2025 9:50 AM [facility] eGFR 83 >=60 mL/min/1. 73m2 LAB CHEMISTRY METHOD 01/20/2025 9:50 AM [facility] Comment:Calculation based on the Chronic Kidney Disease Epidemiology Collaboration (CKD-EPI) equation refit without adjustment for race. BUN/Creatinine Ratio 22.6 LAB CHEMISTRY METHOD 01/20/2025 9:50 AM T [facility] Calcium 9.3 8.5 - 10.5 mg/dL LAB CHEMISTRY METHOD 01/20/2025 9:50 AM [facility] AST (SGOT) 18 10 - 42 unit/L LAB CHEMISTRY METHOD 01/20/2025 9:50 AM [facility] ALT (SGPT) 96(H) 10 - 60 unit/L LAB CHEMISTRY METHOD 01/20/2025 9:50 AM T [facility] Alkaline Phosphatase 123(H) 42 - 121 unit/L LAB CHEMISTRY METHOD 01/20/2025 9:50 AM [facility] Total Protein 5.9(L) 6.0 - 8.0 g/dL LAB CHEMISTRY METHOD 01/20/2025 9:50 AM [facility] Albumin 3.0(L) 3.2 - 5.0 g/dL LAB CHEMISTRY METHOD 01/20/2025 9:50 AM [facility] Total Bilirubin 0.4 0.0 - 1.4 mg/dL LAB CHEMISTRY METHOD 01/20/2025 9:50 AM [facility] Blood Venous blood specimen / Unknown Venipuncture / Unknown 01/20/2025 6:13 AM EDT 01/20/2025 8:56 AM EDT us Courtney Roger MD LAB BLOOD ORDERABLES Fin al Result [facility] [address] [place] [address], * (ABNORMAL) Complete blood count (01/20/2025 6:13 AM EDT) WBC 4.8 4.8 - 10.8 K/[facility] LAB HEMETOLOGY METHOD 01/20/2025 9:34 AM EDT [facility] RBC 3.80 3.80 - 4.80 M/mcL LAB HEMETOLOGY METHOD 01/20/2025 9:34 AM [facility] Hemoglobin 12.9 11.5 - 16.0 g/dL LAB HEMETOLOGY METHOD 01/20/2025 9:34 AM [facility] Hematocrit 38.3 35.0 - 47.0 % LAB HEMETOLOGY METHOD 01/20/2025 9:34 AM [facility] MCV 101.6(H) 79.0 - 98.0 FL LAB HEMETOLOGY METHOD 01/20/2025 9:34 AM [facility] MCH 34.2(H) 27.0 - 32.0 pcg LAB HEMETOLOGY METHOD 01/20/2025 9:34 AM [facility] MCHC 33.7 32.0 - 37.0 g/dL LAB HEMETOLOGY METHOD 01/20/2025 9:34 AM [facility] RDW 12.2 11.0 - 15.0 % LAB HEMETOLOGY METHOD 01/20/2025 9:34 AM [facility] Platelets 81(L) 130 - 400 K/mcL LAB HEMETOLOGY METHOD 01/20/2025 9:34 AM [facility] Comment:previously verified by slide MPV 12.0(H) 7.0 - 11.0 FL LAB HEMETOLOGY METHOD 01/20/2025 9:34 AM [facility] NRBC 0.0 <1.0 % LAB HEMETOLOGY METHOD 01/20/2025 9:34 AM [facility] NRBC Absolute 0.00 <0.10 K/mcL LAB HEMETOLOGY METHOD 01/20/2025 9:34 AM [facility] Blood Venous blood specimen / Unknown Venipuncture / Unknown 01/20/2025 6:13 AM EDT 01/20/2025 8:56 AM EDT us Courtney Roger MD LAB BLOOD ORDERABLES Fin al Result [facility] [address] [place] [address], documented in this encounter Visit Diagnoses Diagnosis Anemia, unspecified Other disorders of electrolyte and fluid balance, not elsewhere classified documented in this encounter Care Teams Bit Tapper Relationship Specialty Start Date End Date Marc Longo MD [address] [place] [phone] PCP - General Internal Medicine 07/14/15 documented as of this encounter
--- OUTSIDE RECORDS SUMMARY | 2025-09-23 11:37 | XMS_ITS | Encounter Summary ---
Author Organization [employer] Address [address] [place] [address] Care Team Providers Care Jewelry Bench Worker Name Role Phone Marc Longo MD Primary Care Provider [phone] Encounter Details Date Type Department Care Team ([facility] Contact Info) Description 03/23/2025 Billing Patient Not Present Adult Medicine [address] [phone] Marc Longo MD [address] [place] [address] Social History Tobacco Use Types Packs/Day Years [...] AM EST Office Visit Adult Medicine [address] [phone] Marc Longo MD [address] [place] [address] 06/21/2026 1:15 PM EDT Office Visit [facility] Hematology Oncology [address] [place] [phone] Heide Covarrubias MD [address] [place] [address] documented as of this encounter Visit Diagnoses Not on filedocumented in this encounter Care Teams Jewelry Bench Worker Relationship Specialty Start Date End Date Marc Longo MD [address] [place] [phone] PCP - General Internal Medicine 07/14/15 documented as of this encounter
--- OUTSIDE RECORDS SUMMARY | 2025-09-23 11:37 | XMS_ITS | Clinical Summary ---
Author Organization [facility] Address [address] [facility] [address] [place] [phone] Phone Care Team Providers Care Sanipractic Physician Name Role Phone Shaheed Henley MD Primary [...] Active ferrous sulfate 325 mg (65 mg [place] iron) tablet Take 325 mg by mouth [...] B B MEDICARE PART A & B [id number] [place] [address] MEDICARE PART A & [facility] MEDIC[facility] PART A & B Advance Directives For more information, please contact: [phone] (9AM - 5PM [facility], Friday-Friday) Documents on File Type Date Recorded Patient Lamina Searcher Expl anation Healthcare Proxy 02/13/2025 9:17 AM * Full Code (Latest Code Status on File) Date Activated Date Inactivated Comments 02/13/2025 5:06 AM Question Answer Comments Code Status Confirmed With: Patient Code Status Communicated To: Inpatient Attending Care Teams Sanipractic Physician Relationship Specialty Start Date End Date Shaheed Henley MD PCP - General Endocrinology 02/05/18 Additional Source Comments The information contained in this document represents components of the legal health record. It is not the complete legal health record.[facility]
--- OUTSIDE RECORDS SUMMARY | 2025-09-23 11:37 | XMS_ITS | Encounter Summary ---
Author Organization [employer] Address [address] [place] [address] Care Team Providers Care Front End Web Developer Name Role Phone Marc Longo MD Primary Care Provider [phone] Encounter Details Date Type Department Care Team (Late st Contact Info) Description 01/28/2025 Lab Requisition [facility] - Main Lab [address] [place] [address] Courtney Roger MD [address] [place] [address] [phone] Anemia, unspecified; Other disorders of electrolyte and [...] 9:45 AM EST Office Visit Adult Medicine [address] [phone] Marc Longo MD [address] [place] [address] 06/21/2026 1:15 PM EDT Office Visit [facility] Hematology Oncology [address] [place] [phone] Heide Covarrubias MD [address] [place] [address] documented as of this encounter Visit Diagnoses Diagnosis Anemia, unspecified Other disorders of electrolyte and fluid balance, not elsewhere classified documented in this encounter Care Teams Front End Web Developer Relationship Specialty Start Date End Date Marc Longo MD [address] [place] [phone] PCP - General Internal Medicine 07/14/15 documented as of this encounter
--- OUTSIDE RECORDS SUMMARY | 2025-09-23 11:37 | XMS_ITS | Encounter Summary ---
Author Organization [employer] Address [address] [place] [address] Care Team Providers Care Mold Maker Apprentice Name Role Phone Marc Longo MD Primary Care Provider [phone] Reason for Visit * Reason Onset Date Comments Med Refill 09/19/2025 Encounter Details Date Type Department Care Team ([facility] Contact Info) Description 09/19/2025 Telephone Adult Medicine [address] [phone] Marc Longo MD [address] [place] [address] Social History Tobacco Use Types Packs/Day Years [...] Sandoval Yanes RN documented in this encounter Ordered Prescriptions Prescription Sig Dispense Quantity Refills Last Filled Start Date End Date polyethylene glycol (MIRALAX) 17 gram packet Take 17 g by mouth 1 (one) time each day. 1530 g 1 09/22/2025 12/21/2025 documented in this encounter Progress Notes * Marc Longo MD - 09/22/2025 7:22 PM ESTAddended by: MARC LONGO on: 09/22/2025 07:22 PM Modules accepted: Orders * Marc Longo MD - 09/22/2025 7:22 PM EST Rx for the miralax sent * Madalyn Hampton MA - 09/21/2025 11:11 AM EST Please see message Not in patients history Please advise * Billie Jasos - 09/19/2025 12:45 PM EST Refills not on Current Medication List Patient mother Isadora states this was prescribed to patient while she was in the hospital. I asked if Dr Longo has ever prescribed this before and she told me yes but I don't see it on her medication list ?? Patient would like script to be: E-PRESCRIBED/FAXED TO PHARMACY BY THE END OF THE DAY WHEN WAS THE PATIENT'S LAST APPOINTMENT IN ADULT MEDICINE? 06/20/25 WHEN WAS THE LAST TIME THE PATIENT SAW THEIR PCP? Same as above Does patient have an upcoming appointment? Yes 11/30/25 (THE MEDICATION REQUESTED IS NOT ON THE MED LIST ABOVE) One or some of the medications requested were on the HISTORICAL MED list PREFERRED PHARMACY: [facility] - [place], [place] - [phone] - [place], [place] - [address] [address] Med name: Miralax Dosage: unknown # of tablets: none Instructions: see bottle for instructions Patient wants: 90-day supply Is this a mail order prescription request?: no Did you check the Pharmacy information above?: yes Patients current insurance carrier is: Payor: MEDICARE / Plan: MEDICARE PART A & B / Product Type: Medicare / Insurance ID #: @[id number]@ documented in this encounter Plan of Treatment Upcoming Encounters Date Type Department Care Team (Late st Contact Info) Description 11/30/2025 9:45 AM EST Office Visit Adult Medicine [address] [phone] Marc Longo MD [address] [place] [address] 06/21/2026 1:15 PM EDT Office Visit [facility] Hematology Oncology [address] [place] [phone] Heide Covarrubias MD [address] [place] [address] documented as of this encounter Visit Diagnoses Not on filedocumented in this encounter Care Teams Mold Maker Apprentice Relationship Specialty Start Date End Date Marc Longo MD [address] [place] [address] PCP - General Internal Medicine 07/14/15 documented as of this encounter
== END 2025-09-23 11:12 | disposition home or self-care (01) ==
PROVIDERS: PCP Internal Medicine; Visit Provider Nurse Practitioner Family
DX: R10.9 Unspecified abdominal pain (principal); K59.00 Constipation, unspecified; Z43.3 Encounter for attention to colostomy
CPT/HCPCS: 99204

== ENCOUNTER → 2025-09-23 10:15 | Outpatient (BNVA) | payer MEDICARE, MEDICAID, SELFPAY | PROVIDERS: PCP Internal Medicine; Visit Provider Nurse Practitioner Family | DX: R10.32 Left lower quadrant pain (principal); K59.00 Constipation, unspecified; Z43.3 Encounter for attention to colostomy; F17.210 Nicotine dependence, cigarettes, uncomplicated; F79 Unspecified intellectual disabilities | CPT/HCPCS: 99202 ==

== ENCOUNTER 2025-10-03 10:17 | Outpatient (AMB) | payer MEDICARE, MEDICAID, SELFPAY ==
--- NOTE | 2025-10-03 10:39 | MHC.OFFVIS ---
Intake Visit Reasons: abnormal MRI ? poor balance Allergies Opioids - Morphine Analogues (OPIOIDS - MORPHINE ANALOGUES) Allergy (Severe, Verified 08/25/25 16:47) NAUSEA, HIVES, STOPS BREATHING HPI Comments Details: The patient is a 55-year-old female presenting for a neurology consultation regarding long-standing developmental and mental health issues, prompted by a recent head injury and an abnormal brain MRI. Her mother reports that her was complicated; she was almost a month post-term, required induction of labor, and had a breech presentation for which oxygen was not administered. 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 She was always in special education but graduated with a diploma from a vocational program. She has not been professionally successful. Her past medical history is significant for a tethered spinal cord with a lipoma, for which she underwent multiple, incomplete back surgeries. She also has a history of a prolapsed rectum requiring an unplanned colostomy during her school years. A past abnormal parathyroid hormone level was noted and subsequently checked last year. She has no history of seizures. Her psychiatric history is notable for significant mental health issues, self-abusive behaviors, and agitation. She was hospitalized at a psychiatric facility about two months ago and has been involuntarily committed three times. For the past five months, she has been managed by a psychiatric medication provider and a psychologist. Socially, the patient lives with her boyfriend and has a personal financial counselor. She uses cannabis and cigarettes. Her mother reports that her symptoms improved significantly during a two-month period of cannabis abstinence, but she has since regressed after resuming use. She has one daughter who was given up for adoption. [facility] Medical History (Updated 10/03/25 @ 11:15 by Amos Escalante MD) Constipation Adjustment disorder with mixed disturbance of emotions and conduct in remission CKD stage G3b/A1, GFR 30-44 and albumin creatinine ratio <30 mg/g Marijuana use Tobacco dependence HLD (hyperlipidemia) Asthma ERIN (iron deficiency anemia) GERD (gastroesophageal reflux disease) HTN (hypertension) Anxiety Intellectual disability Acute adjustment disorder with mixed disturbance of emotions and conduct PTSD (post-traumatic stress disorder) MDD (major depressive disorder), recurrent severe, without psychosis Surgical History Hx of cholecystectomy Previous back surgery Social History Household Members: Significant Other Household Members Other:: roomate Housing: Apartment Do you presently have visiting nurse or other home services: Yes (MARKETING PRODUCTION MANAGER services - 5 days week for 2 hours a day) Comment: 5 minute checks Patient Tobacco Use Status: Current everyday Tobacco user Tobacco use type: Cigarette Cigarette Packs Per Day: 1 Cigarettes Per Day: 20.0 e-Cigarette/Vaping Use: Never Used Second Hand Smoke Exposure: No Substance Use Type: Marijuana Advance Directives Date on File: 02/09/25 service: No Sexual orientation: Straight/Heterosexual Review of Systems Narrative Constitutional:? Complain of fatigue weight gain and high blood pressure HEENT:? Complain of blurred vision Cardiovascular:?No chest pain, palpitations, orthopnea, PND, or leg swelling. Respiratory:? Complain of cough and congestion Gastrointestinal:? Complain of abdominal pain Genitourinary:? Has urgency and frequency of urination Musculoskeletal:? Has back pain and limited arm movements Neurological:? Complain of confusion, memory problems, head injury, tremor, and sleep problems Psychiatric:? Complain of anxiety depression aggressive behavior. Endocrine:?No heat/cold intolerance, polydipsia, polyuria, or hair/skin changes. Hematologic/Lymphatic:?No easy bruising, bleeding, or lymphadenopathy. Integumentary (Skin):?No rash, lesions, itching, or color changes. Allergic/Immunologic:?No seasonal allergies, hives, or recurrent infections. Physical Exam Neuro Other: Mental Status: She is alert and awake with normal spontaneity of speech fluency comprehension and agitated affect. She said that she did not want to be here. She sometime answered simple questions but mostly was not cooperative with exam. Cranial Nerves: CN II: Visual boyer full to confrontation, visual acuity intact. CN III, IV, : Pupils equal, round, reactive to light and accommodation. Extraocular movements are normal. CN V: Facial sensation is normal. CN VII: Facial movements symmetrical. CN VIII: Hearing intact to bedside conversation is normal. CN IX, X: Palate elevates symmetrically. CN XI: Shoulder shrug and head turn symmetrical. CN XII: Tongue midline without atrophy or fasciculations. Motor: No obvious focal arm or leg weakness Reflexes: Deep tendon reflexes were trace to absent. Coordination: Aptahq-or-fgbu was okay. Gait and Station: No obvious gait abnormality. No ataxia or instability. Extrapyramidal: Full facial expressions and blinking. No rigidity. Movements are appropriate with no tremor or abnormality. Speech: Normal; no dysarthria or tremor. Results Reviewed Results Reviewed: MR BRAIN WITHOUT AND WITH CONTRAST CLINICAL INFORMATION: Head injury. Photophobia. COMPARISON: None available. TECHNIQUE: Multiplanar, multisequence MRI of the brain was obtained before and after the intravenous administration of 7.0 mL gadolinium based contrast (Gadavist) without reported immediate complications.. FINDINGS: Patient's motion artifact. Prominent Virchow-Kendall spaces, bilaterally, the most conspicuous in the left parietal pole with the small hyperintense FLAIR signal. No restricted diffusion or enhancement. Bilateral few scattered punctate deep periventricular white matter hyperintense T2 FLAIR signal. No restricted diffusion. No abnormal enhancement in the intra-axial or the extra-axial compartment of the cranium. There is asymmetric volume loss of the right frontal horn lateral ventricle likely coarctation. No acute intracranial hemorrhage, mass effect, midline shift, hydrocephalus or herniation. Prominence of the CSF surrounding the intraconal segment of the right optic nerve sheath. No signal abnormality or enhancing lesion in the cavernous sinuses. Posterior cranial fossa contents demonstrated no signal abnormality or abnormal enhancement. Craniocervical junction demonstrates a 5 mm descensus of the cerebellar tonsils below foramen magnum. Sellar/suprasellar region demonstrated no signal abnormality or enhancing lesion. There is a superior convex morphology with normal size of the pituitary gland. Flow-void signal within the main cerebral vessels is normal. 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 Patchy white matter T2 FLAIR nonenhancing no restricted diffusion. Demyelination versus small vessel disease. Asymmetric CSF prominence intraconal segment right optic nerve sheath. Recommend dedicated enhanced MRI orbits. Assessment & Plan Assessment & Plan (1) Chronic static encephalopathy: Comment: MRI brain WWO at [facility] in April 2025: Mild left di atrophy, left lower parietal lesion probably due to dilated ischemia vs Virchow Kendall space, R optic nerve has prominent CSF compared to the left. Code(s): G93.49 - Other encephalopathy Category: Medical Plan Impression: a: Neuropscychiatric syndrome b: Mild left hemiatrophy of brain that suggested a etiology resulting in hyposic brain injury c: Right optic nerve area CSF sleeve around the nerve, which might be asymptomatic finding. I recommend regular eye doctor follow up. d: No significant Arnold Chiari type finding e: Left posterior parietal lesion, probably ischemic, and might have happened at time of . It might also be dilated Virochow Kendall space but being only one lesion makes it less likely f: No significant white matter disease to suggest demylinating disease Rec: a: She requires full behavioral department services including psychiatric meds (symptomatic treatment), counseling, and MARKETING PRODUCTION MANAGER for meds compliance. May be a jail is a better place for her. c: Somehow, she should control cannabis use as too much of that will create more issues and further impair her cognitive issues. d: Parathyroid and calcium levels, as it was high a few months ago. e: EEG I explained to the patient and her family that her lifelong challenges likely stem from an event around her that affected her brain development. I emphasized that this underlying brain difference is not something that can be reversed, and her treatment should focus on managing symptoms like agitation and anxiety. I outlined the plan to order an EEG and blood tests to complete the neurological workup. I advised that moderate cannabis use would not interfere with the EEG but cautioned against excessive use due to the risk of psychiatric hospitalization. I stated that I would communicate my findings to her other providers, confirming the absence of a correctable neurological disease and to support the need for ongoing comprehensive psychiatric and behavioral health management. Orders: Orders Calcium Today G93.49 - Other encephalopathy EEG Routine Today G93.40 - Encephalopathy, unspecified Parathyroid Hormone Intact Today G93.49 - Other encephalopathy Coding Level of Care Code New Pt Level 5 (44941) Diagnoses Chronic static encephalopathy G93.49
--- OUTSIDE RECORDS SUMMARY | 2025-10-03 11:37 | XMS_ITS | Encounter Summary ---
Author Organization [employer] Address [address] [place] [address] Care Team Providers Care Emt Basic Name Role Phone Marc Longo MD Primary Care Provider [phone] Encounter Details Date Type Department Care Team (Late st Contact Info) Description 08/18/2025 Referral Triage [facility] Worker Program [address] [place] [phone] Paris Hernandez Social History Tobacco Use [...] 9:45 AM EST Office Visit Adult Medicine [address] [phone] Marc Longo MD [address] [place] [address] 06/21/2026 1:15 PM EDT Office Visit [facility] Hematology Oncology [address] [place] [phone] Heide Covarrubias MD [address] [place] [address] documented as of this encounter Visit Diagnoses Not on filedocumented in this encounter Care Teams Emt Basic Relationship Specialty Start Date End Date Marc Longo MD [address] [place] [address] PCP - General Internal Medicine 07/14/15 documented as of this encounter
--- OUTSIDE RECORDS SUMMARY | 2025-10-03 11:37 | XMS_ITS | Encounter Summary ---
Author Organization [employer] Address [address] [place] [address] Care Team Providers Care Ballistics Laboratory Gunsmith Name Role Phone Marc Longo MD Primary Care Provider [phone] Encounter Details Date Type Department Care Team (Late st Contact Info) Description 01/23/2025 Lab Requisition [facility] - Main Lab [address] [place] [address] Courtney Roger MD [address] [place] [address] [phone] Anemia, unspecified; Other disorders of electrolyte and [...] 9:45 AM EST Office Visit Adult Medicine [address] [phone] Marc Longo MD [address] [place] [address] 06/21/2026 1:15 PM EDT Office Visit [facility] Hematology Oncology [address] [place] [phone] Heide Covarrubias MD [address] [place] [address] documented as of this encounter Procedures Procedure [...] [facility] Comment:Calculation based on the Chronic Kidney Disease Epidemiology Collaboration (CKD-EPI) equation refit without adjustment for race. BUN/Creatinine Ratio 31.9 LAB CHEMISTRY METHOD 01/24/2025 1:37 PM EDT [facility] Calcium 9.7 8.5 - 10.5 mg/dL LAB CHEMISTRY METHOD 01/24/2025 1:37 PM EDT [facility] AST (SGOT) 37 10 - 42 unit/L LAB CHEMISTRY METHOD 01/24/2025 1:37 PM EDT [facility] ALT (SGPT) 67(H) 10 - 60 unit/L LAB CHEMISTRY METHOD 01/24/2025 1:37 PM EDT [facility] Alkaline Phosphatase 108 42 - 121 unit/L LAB [facility] Total Protein 6.6 6.0 - 8.0 g/dL LAB CHEMISTRY METHOD 01/24/2025 1:37 PM [facility] Albumin 3.4 3.2 - 5.0 g/dL LAB CHEMISTRY METHOD 01/24/2025 1:37 PM EDT [facility] Total Bilirubin 0.3 0.0 - 1.4 mg/dL LAB CHEMISTRY METHOD 01/24/2025 1:37 PM [facility] Blood Venous blood specimen / Unknown Venipuncture / Unknown 01/24/2025 9:25 AM EDT 01/24/2025 11:22 AM EDT us Courtney Roger MD LAB BLOOD ORDERABLES Fin al Result [facility] [address] [place] [address], * (ABNORMAL) Complete blood count (01/24/2025 9:25 AM EDT) WBC 8.8 4.8 - 10.8 K/mcL LAB HEMETOLOGY METHOD 01/24/2025 12:19 PM EDT [facility] RBC 3.70(L) 3.80 - 4.80 [...] pcg LAB HEMETOLOGY METHOD 01/24/2025 12:19 PM [facility] MCHC 32.9 32.0 - 37.0 g/dL LAB HEMETOLOGY METHOD 01/24/2025 12:19 PM [facility] RDW 12.7 11.0 - 15.0 % LAB HEMETOLOGY METHOD 01/24/2025 12:19 PM [facility] Platelets 142 130 - 400 K/mcL LAB HEMETOLOGY METHOD 01/24/2025 12:19 PM [facility] MPV 11.8(H) 7.0 - 11.0 FL LAB HEMETOLOGY METHOD 01/24/2025 12:19 PM [facility] NRBC 0.0 <1.0 % LAB HEMETOLOGY METHOD 01/24/2025 12:19 PM [facility] NRBC Absolute 0.00 <0.10 K/mcL LAB HEMETOLOGY METHOD 01/24/2025 12:19 PM [facility] Blood Venous blood specimen / Unknown Venipuncture / Unknown 01/24/2025 9:25 AM EDT 01/24/2025 11:22 AM EDT us Courtney Roger MD LAB BLOOD ORDERABLES Fin al Result [facility] ([facility] [address] [place] [address], documented in this encounter Visit Diagnoses Diagnosis Anemia, unspecified Other disorders of electrolyte and fluid balance, not elsewhere classified documented in this encounter Care Teams Ballistics Laboratory Gunsmith Relationship Specialty Start Date End Date Marc Longo MD [address] [place] [phone] PCP - General Internal Medicine 07/14/15 documented as of this encounter
--- OUTSIDE RECORDS SUMMARY | 2025-10-03 11:37 | XMS_ITS | Encounter Summary ---
Author Organization [facility] Address [address] [place] [address] Phone Care Team Providers Care Upholsterer Inside Name Role Phone Shaheed Henley MD Primary Care Provider Unavail able Encounter Details Date Type Department Care Team (Late st Contact Info) Description 03/06/2018 Procedure Pass [facility] [address] [place] [address] Social History Tobacco Use Types Packs/Day Years [...] on filedocumented in this encounter Care Teams Upholsterer Inside Relationship Specialty Start Date End Date Shaheed Henley MD PCP - General Endocrinology 02/05/18 documented as of this encounter Additional Source Comments The information contained in this document represents components of the legal health record. It is not the complete legal health record.[facility]
--- OUTSIDE RECORDS SUMMARY | 2025-10-03 11:37 | XMS_ITS | Encounter Summary ---
Author Organization [facility] Address [address] [place] [address] Phone Care Team Providers Care Income Tax Auditor Name Role Phone Shaheed Henley MD Primary Care Provider Unavail able Encounter Details Date Type Department Care Team (Late st Contact Info) Description 02/12/2025 Procedure Pass [facility] Radiology [address] [place] [address] Social History Tobacco Use Types Packs/Day Years [...] on filedocumented in this encounter Care Teams Income Tax Auditor Relationship Specialty Start Date End Date Shaheed Henley MD PCP - General Endocrinology 02/05/18 documented as of this encounter Additional Source Comments The information contained in this document represents components of the legal health record. It is not the complete legal health record.[facility]
--- OUTSIDE RECORDS SUMMARY | 2025-10-03 11:37 | XMS_ITS ---
Author Organization [facility] [address] [place] [address] [place] [phone] Phone Care Team Providers Care Prosthetic Technician Name Role Phone Marc Longo MD Primary Care Provider [phone] Chronic Care Management Status:Ongoing (Active) Start date:08/18/2025 Enrollment date:08/26/2025 Enrollment reason:Referred by Care Team Related social drivers of health: Health Literacy, Food Risk Case Team Name Relationship Phone Rukhsana Escalante RN(Responsible Staff) Care Cheo masters Continued Care and Services Coordination
--- OUTSIDE RECORDS SUMMARY | 2025-10-03 11:37 | XMS_ITS | Clinical Summary ---
Author Organization [address] Address [address] [place] [phone] Phone Care Team Providers Care Sausage Inspector Name Role Phone Marc Longo MD Primary Care Provider [phone] Allergies Active Allergy Reactions Criticality Noted Date Comments Aspirin 04/20/2007 Rash; NOT ALLERGIC PER PATIENT Azithromycin Swelling 09/18/2015 Carisoprodol 07/21/2007 Codeine 11/17/2007 Gi upset Diazepam 04/20/2007 Valium gi upset,vom Gabapentin 07/29/2014 nausea Horse Dander 04/20/2007 Horse Serum animal Morphine Sulfate 04/20/2007 gi upset,vom Opium Tincture 02/02/2018 Oxycodone-Acetaminophen 04/20/2007 gi upset [id number] Qpl-Qmdw-Fgs-Asb-C 08/01/2017 Moviprep [Mulldzrxj-g-rua-peg-na Xrwidt-wwgf-oalw] Prednisone 02/29/2016 nausea Propoxyphene Other 12/10/2007 Cannot [...] 1530 g 1 09/22/20 25 026 Active atorvastatin (LIPITOR) 10 mg tablet Take [...] Care Team Description 09/19/2025 Telephone Adult Medicine [address] [phone] Marc Longo MD 08/18/2025 Referral Triage [facility] Health Worker [address] [phone] Paris Hernandez 08/18/2025 Telephone Adult Medicine [address] [phone] Hilda Knight RN from Last 3 Months Immunizations Immunization Administration Dates Next Due Td Tetanus diptheria (Tdvax) 7yo and older 11/19 Tdap Tetanus diptheria acell ular pertussis (Boostrix; Adacel) 7yo and older 06/07/2008 Surgical History Surgery Date Site/Laterality Comments BACK SURGERY 1996 PROCEDURE: HISTORICAL BACK SURGERY; COMMENT: multiple back procedures ESOPHAGOGASTRODUODENOSCOPY 08/01/2008 PROCEDURE: MI EGD TRANSORAL BIOPSY SINGLE/MULTIPLE; COMMENT: duodenal bx: wnl COLONOSCOPY W/ BIOPSIES 08/01/2008 PROCEDURE: MI COLONOSCOPY W/BIOPSY SINGLE/MULTIPLE; COMMENT: colonic bx: wnl TUBAL LIGATION 2002 PROCEDURE: HISTORICAL TUBAL LIGATION ENDOMETRIAL ABLATION 05/25/2010 PROCEDURE: [place] ENDOMETRIAL ABLTJ THERMAL W/O HYSTEROSCOPIC GUID; COMMENT: [...] AM EST Office Visit Adult Medicine [address] [phone] Marc Longo MD [address] [place] [address] 06/21/2026 1:15 PM EDT Office Visit [facility] Hematology Oncology [address] [place] [address] Heide Covarrubias MD [address] [place] [address] Health Maintenance Due Date Last Done Comments [...] 6:33 PM EDT [facility] Chloride 102 96 - 110 mmol/L LAB CHEMISTRY METHOD 06/20/2025 6:33 PM EDT [facility] CO2 29 21 - 32 mmol/L LAB CHEMISTRY METHOD 06/20/2025 6:33 PM EDT [facility] Anion Gap 6 3 - 11 LAB CHEMISTRY METHOD 06/20/2025 6:33 PM [facility] Glucose 126(H) 70 - 100 mg/dL LAB CHEMISTRY METHOD 06/20/2025 6:33 PM [facility] BUN 21 5 - 25 mg/dL LAB CHEMISTRY METHOD 06/20/2025 6:33 PM [facility] Creatinine 1.08 0.50 - 1.10 mg/dL LAB CHEMISTRY METHOD 06/20/2025 6:33 PM [facility] eGFR 61 >=60 mL/min/1. 73m2 LAB CHEMISTRY METHOD 06/20/2025 6:33 PM [facility] Comment:Calculation based on the Chronic Kidney Disease Epidemiology Collaboration (CKD-EPI) equation refit without adjustment for race. BUN/Creatinine Ratio 19.4 LAB CHEMISTRY METHOD 06/20/2025 6:33 PM [facility] Calcium 9.8 8.5 - 10.5 mg/dL LAB CHEMISTRY METHOD 06/20/2025 6:33 PM [facility] AST (SGOT) 16 10 - 42 unit/L LAB CHEMISTRY METHOD 06/20/2025 6:33 PM [facility] ALT (SGPT) 17 10 - 60 unit/L LAB CHEMISTRY METHOD 06/20/2025 6:33 PM [facility] Alkaline Phosphatase 96 42 - 121 unit/L LAB CHEMISTRY METHOD 06/20/2025 6:33 PM [facility] Total Protein 7.6 6.0 - 8.0 g/dL LAB CHEMISTRY METHOD 06/20/2025 6:33 PM [facility] Albumin 4.3 3.2 - 5.0 g/dL LAB CHEMISTRY METHOD 06/20/2025 6:33 PM [facility] Total Bilirubin 0.5 0.0 - 1.4 mg/dL LAB CHEMISTRY METHOD 06/20/2025 6:33 PM EDT [facility] Blood Venous blood specimen / Unknown Venipuncture / Unknown 06/20/2025 3:30 PM EDT 06/20/2025 3:30 PM EDT Marc Longo MD LAB BLOOD ORDERABLES Final Resu lt Performing Organization Address [facility]/ZIP Co de Phone Number [facility] [address] [place] [address], [place] [phone] * Hepatitis panel, acute with reflex to confirmation (01/14/2025 8:38 AM EDT) [facility] Hepatitis B Surface Ag Negative Negative LAB [...] BLOOD ORDERABLES Final Result Performing Organization Address City/[facility]/ZIP Co de Phone Number [facility] [address] [place] [address], [place] [phone] * Colonoscopy (04/01/2024) Pathologist [facility] Colonoscopy no interpretation , abstracted Anatomical Region [...] mg/dL Blood Venous blood specimen / Unknown Loretta Chaney MD LAB BLOOD ORDERABLES Maeve l Result * Pap Smear (12/29/2015) Pathologist [facility] Pap smear normal, abstracted Historical Provider HEALTH MAINTENANCE Final Result * HIV Screening (06/26/2009) HIV Screening abstracted Historical Provider HEALTH MAINTENANCE Final Result from Last 3 Months or Most Recently Relevant to Health Maintenance Insurance MEDICARE [place]ICAID [place] Advance Directives Documents on File Type Date Recorded Patient Wire[address] Light Expl anation Advance Directives and Living Will [...] Agents on File Name Relationship Healthcare Agent Relationssd p Communication Isadora Ramon Mother Health Care Agent Care Teams Sausage Inspector Relationship Specialty Start Date End Date Marc Longo MD [address] [place] [phone] PCP - General Internal Medicine 07/14/15
--- OUTSIDE RECORDS SUMMARY | 2025-10-03 11:37 | XMS_ITS | Clinical Summary ---
Author Organization [facility] Prior to 03/05/[address] [place] [address] Care Team Providers Care Plastic Roller Name Role Phone Marc Longo MD Primary Care Provider [phone] Allergies Active Allergy Reactions Criticality Noted Date Comments Aspirin 04/20/2007 Rash; NOT ALLERGIC PER PATIENT Rash; NOT ALLERGIC PER PATIENT Azithromycin Swelling 09/18/2015 Carisoprodol 07/21/2007 Codeine 11/17/2007 Gi upset Gi upset Diazepam 04/20/2007 gi upset,vom gi upset,vom Gabapentin 07/29/2014 nausea nausea Morphine 04/20/2007 gi upset,vom gi upset,vom Opium 02/02/2018 Oxycodone-Acetaminophen 04/20/2007 gi upset gi upset Npv-Rsb-Zrbf-Nasulf-Na Asc-C 08/01/2017 Pheniramine 04/20/2007 Prednisone 02/29/2016 nausea [...] age to complete this topic Care Teams Plastic Roller Relationship Specialty Start Date End Date Marc Longo MD PCP - General Internal Medicine 06/24/22
--- OUTSIDE RECORDS SUMMARY | 2025-10-03 11:37 | XMS_ITS | Encounter Summary ---
Author Organization [facility] Address [address] [place] [address] Phone Care Team Providers Care Rnfa Name Role Phone Shaheed Henley MD Primary Care Provider Unavail able Encounter Details Date Type Department Care Team (Late st Contact Info) Description 02/13/2025 Procedure Pass [facility]'s Radiology [address] [place] [address] Social History Tobacco Use Types Packs/Day Years [...] on filedocumented in this encounter Care Teams Rnfa Relationship Specialty Start Date End Date Shaheed Henley MD PCP - General Endocrinology 02/05/18 documented as of this encounter Additional Source Comments The information contained in this document represents components of the legal health record. It is not the complete legal health record.[facility]
--- OUTSIDE RECORDS SUMMARY | 2025-10-03 11:37 | XMS_ITS | Encounter Summary ---
Author Organization [employer] Address [address] [place] [address] Care Team Providers Care Mold Carpenter Name Role Phone Marc Longo MD Primary Care Provider [phone] Encounter Details Date Type Department Care Team (Late st Contact Info) Description 02/13/2025 Lab Requisition [facility] - Main Lab [address] [place] [address] Courtney Roger MD [address] [place] [address] [phone] Anemia, unspecified; Other disorders of electrolyte and [...] 9:45 AM EST Office Visit Adult Medicine [address] [phone] Marc Longo MD [address] [place] [address] 06/21/2026 1:15 PM EDT Office Visit [facility] Hematology Oncology [address] [place] [phone] Heide Covarrubias MD [address] [place] [address] documented as of this encounter Visit Diagnoses Diagnosis Anemia, unspecified Other disorders of electrolyte and fluid balance, not elsewhere classified documented in this encounter Care Teams Mold Carpenter Relationship Specialty Start Date End Date Marc Longo MD [address] [place] [phone] PCP - General Internal Medicine 07/14/15 documented as of this encounter
--- OUTSIDE RECORDS SUMMARY | 2025-10-03 11:37 | XMS_ITS | Encounter Summary ---
Author Organization [employer] Address [address] [place] [address] Care Team Providers Care Wood Products Manufacturer Name Role Phone Marc Longo MD Primary Care Provider [phone] Encounter Details Date Type Department Care Team (Late st Contact Info) Description 02/05/2025 Lab Requisition [facility] - Main Lab [address] [place] [address] Courtney Roger MD [address] [place] [address] [phone] Anemia, unspecified; Other disorders of electrolyte and [...] 9:45 AM EST Office Visit Adult Medicine [address] [phone] Marc Longo MD [address] [place] [address] 06/21/2026 1:15 PM EDT Office Visit [facility] Hematology Oncology [address] [place] [phone] Heide Covarrubias MD [address] [place] [address] documented as of this encounter Visit Diagnoses Diagnosis Anemia, unspecified Other disorders of electrolyte and fluid balance, not elsewhere classified documented in this encounter Care Teams Wood Products Manufacturer Relationship Specialty Start Date End Date Marc Longo MD [address] [place] [phone] PCP - General Internal Medicine 07/14/15 documented as of this encounter
--- OUTSIDE RECORDS SUMMARY | 2025-10-03 11:37 | XMS_ITS | Encounter Summary ---
Author Organization [facility] Address [address] [place] [address] Phone Care Team Providers Care Medical Editor Name Role Phone Shaheed Henley MD Primary Care Provider Unavail able Encounter Details Date Type Department Care Team (Late st Contact Info) Description 03/06/2018 Procedure Pass [facility] Radiology [address] [place] [address] Social History Tobacco Use Types Packs/Day Years [...] filedocumented in this encounter Care Teams Medical Editor Relationship Specialty Start Date End Date Shaheed Henley MD PCP - General Endocrinology 02/05/18 documented as of this encounter Additional Source Comments The information contained in this document represents components of the legal health record. It is not the complete legal health record.[facility]
--- OUTSIDE RECORDS SUMMARY | 2025-10-03 11:37 | XMS_ITS | Encounter Summary ---
Author Organization [facility] Address [address] [place] [address] Phone Care Team Providers Care Arc Welding Machine Operator Name Role Phone Shaheed Henley MD Primary Care Provider Unavail able Encounter Details Date Type Department Care Team (Late st Contact Info) Description 03/06/2018 Procedure Pass [facility] Radiology [address] [place] [address] Social History Tobacco Use Types Packs/Day Years [...] on filedocumented in this encounter Care Teams Arc Welding Machine Operator Relationship Specialty Start Date End Date Shaheed Henley MD PCP - General Endocrinology 02/05/18 documented as of this encounter Additional Source Comments The information contained in this document represents components of the legal health record. It is not the complete legal health record.[facility]
--- OUTSIDE RECORDS SUMMARY | 2025-10-03 11:37 | XMS_ITS | Encounter Summary ---
Author Organization [facility] Address [address] [place] [address] Phone Care Team Providers Care Human Resources Trainee Name Role Phone Shaheed Henley MD Primary Care Provider Unavail able Reason for Referral * MRI/CAT Scan - Closed Specialty Diagnoses / Procedures Referred By Contac t Referred To Contact Procedures CT Abdomen/Pelvis Outside (No Interpretation) Krystyna Trevizo MD Phone: tel: fax: mailto:[email or web address] Referral ID Status Reason Start Date Expiration Date Visits Re quested Visits Authorized [id number] Closed 03/06/2018 03/06/2019 1 1 * MRI/CAT Scan - Closed Specialty Diagnoses / Procedures Referred By Contac t Referred To Contact Procedures CT Abdomen/Pelvis Outside (No Interpretation) Krystyna Trevizo MD Phone: tel: fax: mailto:[email or web address] Referral ID Status Reason Start Date Expiration Date Visits Re quested Visits Authorized [id number] Closed 03/06/2018 03/06/2019 1 1 * MRI/CAT Scan - Closed Specialty Diagnoses / Procedures Referred By Contac t Referred To Contact Procedures CT Abdomen/Pelvis Outside (No Interpretation) Krystyna Trevizo MD Phone: tel: fax: mailto:[email or web address] Referral ID Status Reason Start Date Expiration Date Visits Re quested Visits Authorized [id number] Closed 03/06/2018 03/06/2019 1 1 Encounter Details Date Type Department Care Team (Late st Contact Info) Description 03/06/2018 Transcribe Orders [facility] [address] [place] [address] Guido Edwards [address] [place] [phone] [email or web address] Social History Tobacco Use Types Packs/Day Years [...] (No Interpretation) (03/06/2018 1:15 AM EDT) [facility]ative [facility] - 03/06/2018 8:38 AM EDT This [...] W/OUT INTERPRETATION Final Result Performing Organization Address [facility] Co de Phone Number [email or web address] * XR Abdomen Outside (No Interpretation) (03/06/2018 12:15 AM EDT) Narrative [facility] - 03/06/2018 8:38 AM EDT This study is for PACS storage only and not for interpretation. us Krystyna SCOTT OUTSIDE IMAGING W/OUT INTERPRETATION Final Result Performing Organization Address [facility] Co de Phone Number [email or web address] * CT Abdomen/Pelvis Outside (No Interpretation) (03/06/2018 12:00 AM EDT) Narrative [facility], DOCUMENTATION - 03/06/2018 8:38 AM EDT This study is for PACS storage only and not for interpretation. us Krystyna SCOTT OUTSIDE IMAGING W/OUT INTERPRETATION Final Result documented in this encounter Visit Diagnoses Not on filedocumented in this encounter Care Teams Human Resources Trainee Relationship Specialty Start Date End Date Shaheed Henley MD PCP - General Endocrinology 02/05/18 documented as of this encounter Additional Source Comments The information contained in this document represents components of the legal health record. It is not the complete legal health record.[facility]
--- OUTSIDE RECORDS SUMMARY | 2025-10-03 11:37 | XMS_ITS | Encounter Summary ---
Author Organization [employer] Address [address] [place] [address] Care Team Providers Care Museum Archivist Name Role Phone Marc Longo MD Primary Care Provider [phone] Encounter Details Date Type Department Care Team (Late st Contact Info) Description 01/28/2025 Lab Requisition [facility] - Main Lab [address] [place] [address] Courtney Roger MD [address] [place] [address] [phone] Anemia, unspecified; Other disorders of electrolyte and [...] AM EST Office Visit Adult Medicine [address] [phone] Marc Longo MD [address] [place] [address] 06/21/2026 1:15 PM EDT Office Visit [facility] Hematology Oncology [address] [place] [phone] Heide Covarrubias MD [address] [place] [address] documented as of this encounter Visit Diagnoses Diagnosis Anemia, unspecified Other disorders of electrolyte and fluid balance, not elsewhere classified documented in this encounter Care Teams Museum Archivist Relationship Specialty Start Date End Date Marc Longo MD [address] [place] [phone] PCP - General Internal Medicine 07/14/15 documented as of this encounter
--- OUTSIDE RECORDS SUMMARY | 2025-10-03 11:37 | XMS_ITS | Encounter Summary ---
Author Organization [employer] Address [address] [place] [address] Care Team Providers Care Proj Engineer Name Role Phone Marc Longo MD Primary Care Provider [phone] Encounter Details Date Type Department Care Team (Late st Contact Info) Description 01/20/2025 Lab Requisition [facility] - Main Lab [address] [place] [address] Courtney Roger MD [address] [place] [address] [phone] Anemia, unspecified; Other disorders of electrolyte and [...] AM EST Office Visit Adult Medicine [address] [phone] Marc Longo MD [address] [place] [address] 06/21/2026 1:15 PM EDT Office Visit [facility] Hematology Oncology [address] [place] [phone] Heide Covarrubias MD [address] [place] [address] documented as of this encounter Procedures Procedure [...] mmol/L LAB CHEMISTRY METHOD 01/20/2025 9:50 AM [facility] Potassium 4.5 3.5 - 5.5 mmol/L LAB CHEMISTRY METHOD 01/20/2025 9:50 AM [facility] Chloride 102 96 - 110 mmol/L LAB CHEMISTRY METHOD 01/20/2025 9:50 AM [facility] CO2 32 21 - 32 mmol/L LAB CHEMISTRY METHOD 01/20/2025 9:50 AM [facility] Anion Gap 5 3 - 11 LAB CHEMISTRY METHOD 01/20/2025 9:50 AM [facility] Glucose 113(H) 70 - 100 mg/dL LAB CHEMISTRY METHOD 01/20/2025 9:50 AM [facility] BUN 19 5 - 25 mg/dL LAB CHEMISTRY METHOD 01/20/2025 9:50 AM [facility] Creatinine 0.84 0.50 - 1.10 mg/dL LAB CHEMISTRY METHOD 01/20/2025 9:50 AM [facility] eGFR 83 >=60 mL/min/1. 73m2 LAB CHEMISTRY METHOD 01/20/2025 9:50 AM [facility] Comment:Calculation based on the Chronic Kidney Disease Epidemiology Collaboration (CKD-EPI) equation refit without adjustment for race. BUN/Creatinine Ratio 22.6 LAB CHEMISTRY METHOD 01/20/2025 9:50 AM [facility] Calcium 9.3 8.5 - 10.5 mg/dL LAB CHEMISTRY METHOD 01/20/2025 9:50 AM [facility] AST (SGOT) 18 10 - 42 unit/L LAB CHEMISTRY METHOD 01/20/2025 9:50 AM [facility] ALT (SGPT) 96(H) 10 - 60 unit/L LAB CHEMISTRY METHOD 01/20/2025 9:50 AM T [facility] Alkaline Phosphatase 123(H) 42 - 121 unit/L LAB CHEMISTRY METHOD 01/20/2025 9:50 AM [facility] Total Protein 5.9(L) 6.0 - 8.0 g/dL LAB CHEMISTRY METHOD 01/20/2025 9:50 AM [facility] Albumin 3.0(L) 3.2 - 5.0 g/dL LAB CHEMISTRY METHOD 01/20/2025 9:50 AM [facility] Total Bilirubin 0.4 0.0 - 1.4 mg/dL LAB CHEMISTRY METHOD 01/20/2025 9:50 AM [facility] Blood Venous blood specimen / Unknown Venipuncture / Unknown 01/20/2025 6:13 AM EDT 01/20/2025 8:56 AM EDT us Courtney Roger MD LAB BLOOD ORDERABLES Fin al Result [facility] [address] [place] [address], * (ABNORMAL) Complete blood count (01/20/2025 6:13 AM EDT) WBC 4.8 4.8 - 10.8 K/[facility] LAB HEMETOLOGY METHOD 01/20/2025 9:34 AM EDT [facility] RBC 3.80 3.80 - 4.80 M/mcL LAB HEMETOLOGY METHOD 01/20/2025 9:34 AM [facility] Hemoglobin 12.9 11.5 - 16.0 g/dL LAB HEMETOLOGY METHOD 01/20/2025 9:34 AM [facility] Hematocrit 38.3 35.0 - 47.0 % LAB HEMETOLOGY METHOD 01/20/2025 9:34 AM [facility] MCV 101.6(H) 79.0 - 98.0 FL LAB HEMETOLOGY METHOD 01/20/2025 9:34 AM [facility] MCH 34.2(H) 27.0 - 32.0 pcg LAB HEMETOLOGY METHOD 01/20/2025 9:34 AM [facility] MCHC 33.7 32.0 - 37.0 g/dL LAB HEMETOLOGY METHOD 01/20/2025 9:34 AM [facility] RDW 12.2 11.0 - 15.0 % LAB HEMETOLOGY METHOD 01/20/2025 9:34 AM [facility] Platelets 81(L) 130 - 400 K/mcL LAB HEMETOLOGY METHOD 01/20/2025 9:34 AM [facility] Comment:previously verified by slide MPV 12.0(H) 7.0 - 11.0 FL LAB HEMETOLOGY METHOD 01/20/2025 9:34 AM [facility] NRBC 0.0 <1.0 % LAB HEMETOLOGY METHOD 01/20/2025 9:34 AM [facility] NRBC Absolute 0.00 <0.10 K/mcL LAB HEMETOLOGY METHOD 01/20/2025 9:34 AM [facility] Blood Venous blood specimen / Unknown Venipuncture / Unknown 01/20/2025 6:13 AM EDT 01/20/2025 8:56 AM EDT us Courtney Roger MD LAB BLOOD ORDERABLES Fin al Result [facility] ([facility] [address] [place] [address], documented in this encounter Visit Diagnoses Diagnosis Anemia, unspecified Other disorders of electrolyte and fluid balance, not elsewhere classified documented in this encounter Care Teams Proj Engineer Relationship Specialty Start Date End Date Marc Longo MD [address] [place] [phone] PCP - General Internal Medicine 07/14/15 documented as of this encounter
--- OUTSIDE RECORDS SUMMARY | 2025-10-03 11:38 | XMS_ITS | Clinical Summary ---
Author Organization [facility] Address [address] [place] [address] Phone Care Team Providers Care Paraffin Plant Sweater Operator Name Role Phone Shaheed Henley MD [...] Active ferrous sulfate 325 mg (65 mg kaibab iron) tablet Take 325 mg by mouth [...] B B MEDICARE PART A & B [id number] [place] [address] MEDICARE PART A & B [facility] MEDICARE PART A & B Advance Directives For more information, please contact: [phone] (9AM - 5PM [facility], Friday-Friday) Documents on File Type Date Recorded Patient Caustic Mixer Expl anation Healthcare Proxy 02/13/2025 9:17 AM * Full Code (Latest Code Status on File) Date Activated Date Inactivated Comments 02/13/2025 5:06 AM Question Answer Comments Code Status Confirmed With: Patient Code Status Communicated To: Inpatient Attending Care Teams Paraffin Plant Sweater Operator Relationship Specialty Start Date End Date Shaheed Henley MD PCP - General Endocrinology 02/05/18 Additional Source Comments The information contained in this document represents components of the legal health record. It is not the complete legal health record.[facility]
--- OUTSIDE RECORDS SUMMARY | 2025-10-03 11:38 | XMS_ITS | Encounter Summary ---
Author Organization [employer] Address [address] [place] [address] Care Team Providers Care Croze Cutter Helper Name Role Phone Marc Longo MD Primary Care Provider [phone] Encounter Details Date Type Department Care Team ([facility] Contact Info) Description 03/23/2025 Billing Patient Not Present Adult Medicine [address] [phone] Marc Longo MD [address] [place] [address] Social History Tobacco Use Types Packs/Day Years [...] 9:45 AM EST Office Visit Adult Medicine [address] [phone] Marc Longo MD [address] [place] [address] 06/21/2026 1:15 PM EDT Office Visit [facility] Hematology Oncology [address] [place] [phone] Heide Covarrubias MD [address] [place] [address] documented as of this encounter Visit Diagnoses Not on filedocumented in this encounter Care Teams Croze Cutter Helper Relationship Specialty Start Date End Date Marc Longo MD [address] [place] [phone] PCP - General Internal Medicine 07/14/15 documented as of this encounter
== END 2025-10-03 11:18 | disposition home or self-care (01) ==
LOC: HO.HSM 10:17
PROVIDERS: PCP Internal Medicine; Visit Provider Psychiatry & Neurology Neurology
DX: G93.49 Other encephalopathy (principal)
CPT/HCPCS: 99205

== ENCOUNTER 2025-10-03 10:17 | Outpatient (REF) | payer MEDICARE, MEDICAID, SELFPAY ==
[2025-10-03 12:48] LABS: Calcium 10.0 mg/dL (8.4-10.2)
[2025-10-03 13:02] LABS: Parathyroid Hormone Intact 73.7 pg/mL (8.7-77.1)
== END 2025-10-03 10:18 | disposition home or self-care (01) ==
LOC: HO.LAB 10:17
PROVIDERS: PCP Internal Medicine; Visit Provider Psychiatry & Neurology Neurology
DX: G93.49 Other encephalopathy (principal)
CPT/HCPCS: 36415; 82310; 83970; 99202